=== PATIENT | female | born 1935 | race Caucasian/White ===

== ENCOUNTER → 2019-06-14 16:33 | Outpatient (CLI) | payer MEDICARE, OTHER, SELFPAY ==
[2019-06-14 17:30] LABS: Add Manual Diff / Slide Review NO; Basophils Absolute Auto 100 /uL (0-100); Basophils Percent Auto 0.8 % (0-2); Eosinophils Absolute Auto 300 /uL (0-450); Eosinophils Percent Auto 3.5 % (2-4); Hematocrit 39.6 % (36-46); Hemoglobin 13.2 g/dL (12.0-16.0); Lymphocytes Absolute Auto 2100 /uL (1100-4500); Lymphocytes Percent Auto 21.3 % (25-40); Mean Corpuscular HGB Conc 33.3 % (30-36); Mean Corpuscular Hemoglobin 28.1 PG (26-34); Mean Corpuscular Volume 84.2 fL (80-100); Monocytes Absolute Auto 900 /uL (0-900); Monocytes Percent Auto 8.6 % (3-14); Neutrophils Absolute Auto 6500 /uL (1500-7000); Neutrophils Percent Auto 65.8 % (50-75); Platelet Count 329 X10^3/uL (150-400); Red Cell Distribution Width 15.6 % (11.6-14.8); White Blood Cell Count 9.9 X10^3/uL (4.5-11.0)
[2019-06-14 17:56] LABS: Carbon Dioxide 27 mmol/L (22-32); Chloride 101 mmol/L (98-107); HEMOLYSIS < 15 (0-50); Potassium 4.4 mmol/L (3.4-5.1); Sodium 139 mmol/L (137-145)
== END ==
PROVIDERS: PCP Internal Medicine; Visit Provider Orthopaedic Surgery
DX: Z01.818 Encounter for other preprocedural examination (principal)
CPT/HCPCS: 36415; 80051; 85025

== ENCOUNTER 2019-06-28 12:20 | Inpatient (IN) | payer MEDICARE, OTHER, SELFPAY ==
[2019-03-08 12:44] VITALS: BMI 30.7
[2019-06-27] VITALS (15 sets, daily range): BP systolic 132–179; BP diastolic 63–92; PULSE 77–93; RESP 9–19; TEMP 35.7–36.4; O2SAT 92–99; BMI 30.7
--- NOTE | 2019-06-27 07:38 | DI.RAD.S_ITS ---
PROCEDURE: XR KNEE RT 1TO2V INDICATIONS: post op films TECHNIQUE: 2 view(s) of the knee acquired. COMPARISON: [facility], , KNEE 1-2 VIEWS LEFT, 04/03/2007, 11:26. FINDINGS: Bones: Patient is status post knee joint arthroplasty. Hardware components are in expected positions. Visualized bony structures are intact. Soft tissues: Overlying postoperative changes are noted. IMPRESSION: Expected postoperative appearance Dictated by: Guzman Tran M.D. on 06/27/2019 at 15:48 Approved by: Guzman Tran M.D. on 06/27/2019 at 15:49
--- NOTE | 2019-06-27 07:40 | PM.PREOP ---
Pre-operative Note Interval Note History & Physical reviewed/Exam performed by Physician: Yes Changes to H&P: No
--- NOTE | 2019-06-27 07:40 | PM.OP.1 ---
Operative Date/Time/Diagnoses Date of procedure: 06/27/19 Pre-op diagnosis: Right knee osteoarthritis Post-op diagnosis: same Procedure & Clinicians Procedure: Right total knee arthroplasty Same procedure as scheduled: Yes Indications: The patient presents today for total knee arthroplasty after failure of conservative treatment. The nature of the procedure including the risks and benefits, alternatives, postoperative course and expected outcome were discussed and all questions answered. Consent was obtained. Operative site confirmed and marked. Surgeon: Ander Billings Hole Digger Truck Driver: Pipe Jarquin Anesthesia Type: General, Peripheral nerve block and Local Operative Notes Findings: Severe osteoarthritis with varus alignment. The bone was extremely soft. Closure Type: primary Specimen(s): none sent Prosthetic devices, grafts, tissues, transplants, or devices: Miryam Persona TKA 7 CR femoral component, E stemmed tibial component, 11 mc polyethylene tray and 32 mm all poly patella. Applied: implant(s) Estimated Blood Loss (mL): 20 Blood products transfused: none Tourniquet time (min): 65 Procedure in detail: The patient was taken to the operative suite and placed under general anesthesia with an adductor nerve block. The patient was given prophylactic antibiotics prior to surgery. The patient was also given tranexamic acid, 1 g, just prior to surgery for postoperative hemostasis. The lateral knee was prepped and the joint injected with 20 mL of 1% Lidocaine with epinephrine. The knee was then prepped and draped in usual sterile fashion. The leg was exsanguinated with an Esmarch dressing and the tourniquet raised to 250 torr. A 15 cm anterior incision was made. Next a medial trivector arthrotomy was made. The extensor mechanism was marked to ensure accurate repair. Initial exposing dissection was carried out medially and laterally. The knee was then extended and the patellar thickness was measured and a cut made removing approximately 9 mm of bone. The patella was then sized and drilled. Some excess lateral bone was excised and the patellofemoral ligament released. The knee was then flexed and the intramedullary femoral guide tim placed. The distal femoral cut was made in 5 ? of valgus at the + 0 position. The femoral size was measured and the appropriate cutting block was then placed and the anterior, posterior and chamfer cuts made. The extra medullary tibial alignment tim was then placed along the anatomic axis of the tibia approximating the normal slope. The guide was set to remove approximately 8 mm from the less affected medial side. The proximal tibial cut was then made with an oscillating saw. All meniscus and bony debris was then removed. Flexion extension gaps were checked. The knee was tight laterally as expected from her preoperative alignment. This was corrected with percutaneous release of the lateral capsule with a 15 blade. The soft tissues were then injected with a combination of 20 mL of half percent Marcaine with epinephrine and 20 mL of Exparel. The trial components were then placed. The knee went into full extension and flexion beyond 120?. There was excellent medial- lateral balance throughout motion. Patellar tracking was initially somewhat subluxed and tight laterally. A lateral retinacular release was performed which corrected the patellar alignment. The trial components were removed and the knee was cleansed with Pulsavac irrigation and dried. The final components were cemented in with high viscosity vacuum mixed bone cement with antibiotics. The knee was held in extension and the patellar clamp until the cement had adequately cured. The knee was irrigated and inspected for any further debris. The knee was then irrigated with dilute Betadine solution. The extensor mechanism was closed with 5 interrupted #1 Vicryl sutures in 90 degrees of flexion. The joint was then injected with a combination of 1 g of tranexamic acid and 20 mL of quarter percent Marcaine with epinephrine. The subcutaneous tissue was closed with 2-0 Vicryl. The skin was closed with janna and surgical adhesive. An Aquacell dressing and Christo wrap were then applied. The patient tolerated the procedure well and was returned to recovery room in good condition. Complications: none Condition: stable Disposition: PACU Plan for aftercare: Standard postoperative protocol for total knee arthroplasty. Admitted for 1-2 days. Follow up in 2 weeks.
[2019-06-27] MEDS: LACTATED RINGERS 1,000 ML 42 ML IV (08:14)
[2019-06-27] MEDS: ACETAMINOPHEN 325 MG TABLET 975 MG PO ×3 (08:14→21:16)
[2019-06-27] MEDS: PREGABALIN 75 MG CAPSULE PO (08:14)
--- NOTE | 2019-06-27 09:18 | SUR.OPER ---
Supine on padded OR bed. Pillow under head, arms secured on padded armboards <90 degree abduction. Safety belt across torso. Non-operative leg secured with tape over blanket over lower leg. Operative leg secured in DeMayo/Aneesh positioner. Foam padded brace at thigh of operative leg.
--- NOTE | 2019-06-27 09:34 | SUR.PREOP ---
Block start time [29] . Monitoring initiated and maintained throughout procedure. Oxygen and medications given per anesthesiologist instructions. Patient remained stable throughout procedure, no adverse reactions noted. Block end time [34].
[2019-06-27] MEDS: MIDAZOLAM 2 MG/2 ML VIAL (09:35)
[2019-06-27] MEDS: fentaNYL 100 MCG/2 ML INJ 50 MCG IV (09:35)
[2019-06-27] MEDS: CLINDAMYCIN 900 MG/50 ML PIGGYBACK 50 MG IV ×2 (09:40→18:03)
[2019-06-27] MEDS: BUPIVACAINE 0.25% W/ EPI (PF) 40 ML, BUPIVACAINE LIPOSOME 266 MG, SODIUM CHLORIDE 0.9% ... INJ (10:16)
[2019-06-27] MEDS: LIDOCAINE 1% W/EPI INJ 20 ML INJ (10:16)
[2019-06-27] MEDS: BUPIVACAINE 0.25% W/ EPI (PF) 20 ML, TRANEXAMIC ACID 1,000 MG, SODIUM CHLORIDE 0.9% 10 ML INJ (10:18)
[2019-06-27] MEDS: TRANEXAMIC ACID 1,000 MG VIAL 1000 MG INJ (10:19)
[2019-06-27] MEDS: ONDANSETRON 4 MG/2 ML INJ IV ×4 (12:35→21:15)
[2019-06-27] MEDS: LACTATED RINGERS 1,000 ML 125 ML IV ×2 (12:41→17:06)
[2019-06-27] MEDS: LACTATED RINGERS 500 ML 1000 ML IV (15:27)
[2019-06-27] MEDS: AMLODIPINE 5 MG TABLET PO (16:46)
[2019-06-27] MEDS: LEVOTHYROXINE 112 MCG TABLET PO (16:46)
[2019-06-27] MEDS: MELOXICAM 7.5 MG TABLET 15 MG PO (16:46)
[2019-06-27] MEDS: ASPIRIN EC 81 MG TABLET PO ×2 (16:46→21:16)
[2019-06-27] MEDS: OXYCODONE IR 5 MG TABLET PO (18:49)
[2019-06-28] VITALS (8 sets, daily range): BP systolic 124–153; BP diastolic 53–76; PULSE 74–90; RESP 15–18; TEMP 36.1–36.7; O2SAT 85–97
[2019-06-28] MEDS: LACTATED RINGERS 1,000 ML 125 ML IV (02:02)
[2019-06-28] MEDS: CLINDAMYCIN 900 MG/50 ML PIGGYBACK 50 MG IV (02:02)
[2019-06-28 06:51] LABS: Hematocrit 37.8 % (36-46); Hemoglobin 12.4 g/dL (12.0-16.0)
[2019-06-28] MEDS: ACETAMINOPHEN 325 MG TABLET 975 MG PO ×3 (09:18→21:01)
[2019-06-28] MEDS: ASPIRIN EC 81 MG TABLET PO ×2 (09:19→21:02)
[2019-06-28] MEDS: OXYCODONE IR 5 MG TABLET PO ×3 (09:19→21:02)
[2019-06-28] MEDS: LEVOTHYROXINE 112 MCG TABLET PO (09:19)
[2019-06-28] MEDS: AMLODIPINE 5 MG TABLET PO (09:19)
[2019-06-28] MEDS: MELOXICAM 7.5 MG TABLET 15 MG PO (09:22)
--- NOTE | 2019-06-28 10:18 | P.PN_ITS ---
Subjective Date Patient Seen: 06/28/19 Time Patient Seen: 10:16 Interval history: Hospital day 2, postop day 1 following right total knee arthroplasty by Dr. Billings. She remained stable postoperatively. Did have some nausea yesterday but doing better today. She did have desaturation into the 80s during the night but does well during the day. She has not had any physical therapy yet. She is scheduled to go to [facility] for outpatient therapy. She plans to go home with her helping her. Exam Vital Signs (past 8 hours): - 06/28/19 03:30 06/28/19 04:38 06/28/19 08:00 Temperature 98.0 F Pulse Rate 78 90 Respiratory Rate 18 18 15 Blood Pressure 147/53 H 153/76 H Pulse Oximetry 85 L 95 92 06/28/19 08:10 Temperature Pulse Rate Respiratory Rate Blood Pressure Pulse Oximetry 93 Fraction of Inspired Oxygen 21 Oxygen Delivery Method Room Air Oxygen Flow Rate 0 Narrative Exam Narrative: Alert, oriented in no acute distress resting in bed. Legs. Christo wrap and samantha dressing to right knee without signs of infection or inflammation. No calf pain or swelling. Pulses symmetrical. Objective Labs Result Diagrams: 06/28/19 06:33 Labs: Laboratory Results - last 24 hr 06/28/19 06:33 Hgb 12.4 Hct 37.8 Assessment & Plan Post-op Postoperative Procedures Operation Date: 06/27/19 09:30 Actual Procedures Side Surgeon p Total Knee Arthroplasty Right Ander Billings MD Plan: Patient will start working with PT today. Observe for improvement in pain and function. Anticipate discharge home tomorrow she is stable. Prescribed docusate and senna today to help with bowel movement. Quality VTE Deep Vein Thrombosis/Pulmonary Embolism Present on Admission: No
[2019-06-28] MEDS: SENNOSIDES 8.6 MG TABLET PO ×2 (10:32→21:02)
[2019-06-28] MEDS: DOCUSATE 100 MG CAPSULE PO ×2 (10:33→21:02)
--- NOTE | 2019-06-28 10:38 | PT.IIE ---
Current Diagnoses Unilateral primary osteoarthritis, right knee (06/27/19) Surgery Performed Operation Date: 06/27/19 09:30 Actual Procedures p Total Knee Arthroplasty(Right) - Ander Billings MD Surgical History (Last Updated 03/08/19 @ 13:21 by Sherrie Alvarez, RN) History of arthroplasty of left knee (Acute ~2006) Hx of reduction mammoplasty (Acute) Hx of tonsillectomy (Acute) Status post bilateral cataract extraction (Acute ~2014) Medical History (Last Updated 03/12/19 @ 14:50 by Sherrie Alvarez RN) Anemia (Acute) Aortic regurgitation (Acute) Arthritis (Acute) Diabetes (Acute) Easy bruisability (Acute) Edema (Acute) HLD (hyperlipidemia) (Acute) HTN (hypertension) (Acute) Hypothyroidism (Acute) Injury of right thigh (Acute ~2017) Iron deficiency anemia (Acute) Lipoma (Acute ~06/2014) Osteoarthritis (Acute) RBBB (right bundle branch block) (Acute) Spinal stenosis (Acute) Physical Therapy Inpatient Evaluation/Re-Eval M1 PT/OT-IP Prior Functional Status Start: 06/27/19 17:03 Freq: NEEDED Status: Active Protocol: Document 06/28/19 09:40 (Rec: 06/28/19 10:37 [id number]) Medical Review Prior Functional Status Medical History Reviewed Yes Diet/Fluid Consistency Regular Communication No deficits noted. Able to make needs known. Pt does show deficits with short term memory. Mobility and Gait Pt uses FWW/ SPC at home and FWW independently for community mobility. She does not drive. Activities of Daily Living and IADL's Independent with ADLs and mod I with 's assistance as needed for IADLs (grocery shopping, doctor appointments) Social History Household Members spouse Living Arrangements House Number of Floors (Floors) Two Floors Number of Stairs To Enter/Railing? 5 MARTI with B rails 14 steps to basement with B rails Home Environment Standard Height Toilet Walk in Shower Home Equipment Front Wheel Walker Straight Cane Manual Wheelchair Raised Toilet Seat Without Armrests Employment Status Retired Additional Social History Comment Pt lives with her in [facility]. Has 2 sons that live clos by and a dtr in [place]. Pt plans to be d/c home with and she will have her son to come to assist as needed. She will also participate outpatient PT at [facility] starting from next tuesday. M2 PT-IP Current Condition Start: 06/27/19 17:03 Freq: NEEDED Status: Active Protocol: Document 06/28/19 09:40 HH (Rec: 06/28/19 10:37 [id number]) Physical Therapy Current Condition Current Condition Evaluation Date 06/28/19 Treatment Diagnosis R TKA, difficulty in walking Onset Date 06/27/19 Weight Bearing Status Weight Bearing Status Weight Bear as Tolerated M3 PT-IP Subjective Start: 06/27/19 17:03 Freq: NEEDED Status: Active Protocol: Document 06/28/19 09:40 HH (Rec: 06/28/19 10:37 [id number]) Subjective Physical Therapy Visit Type Type Initial Evaluation Visit Start Time 09:40 Visit Stop Time 10:05 Total Visit Minutes 25 Notes Pt's at bedside. Just used bedside commode with STATION GATEMAN assistance earlier. pt also brought in her own FWW for adjustment. Number of TEMPORARY HELP AGENCY REFERRAL CLERK Visits 0 Physical Therapy Visit Comments Patient Comments I want to get up Patient Goals to return home with her Therapy Pain Assessment Pain When Pain Assessed During Mobility Pain Present Pain Present Pain Reported Location r knee Intensity 4 Scale Used Numeric (1 - 10) Description Acute Pain Management Techniques Timing of Activity with Medications M4 PT-IP Mobility and Gait Start: 06/27/19 17:03 Freq: NEEDED Status: Active Protocol: Document 06/28/19 09:40 HH (Rec: 06/28/19 10:37 [id number]) PT-Bed Mobility Assessment Rolling Type of Rolling Roll to Left Level of Assist Minimal Assistance 1 Person Assistance Supine to Sit Supine to Sit Minimal Assistance 1 Person Assistance Head of Bed Elevated Bedrails Scooting Scooting to Edge of Bed Contact Guard Assistance PT-Transfer Assessment Sit to and From Stand Sit to and from Stand Moderate Assistance 1 Person Assistance Use of Upper Extremities Equipment Transfer Assistive Device Bed Rail Gait Belt Front Wheeled Walker Orthotic/Prosthetic Devices or Brace: No Transfers Transfer Destination Bed Chair Transfer Technique Stand Step Pivot Transfer Ability Level of Assist Minimal Assistance 1 Person Assistance Use of Upper Extremities Comments Mobility Comments Pt in bed upon assesment and reports anxious regarding mobility. BP pre and post = 140s/60s HR 100s. Pt got up from supine to sit EOB on L side with min A to unweigh her R LE. She then stood up with mod A. Pt c/o dizziness from supine to sit and sit to stand and required 1-2 mins for recovery. She was able to amb after in the room with chair followed for 15 ft with FWW. Pt used step to gait and required constant cues for walker management and sequencing. She then returned to bedside chair safely with call light within reach. Gait Assessment Gait Gait Assistance Required: Contact Guard Assist Distance (Feet) 15 Able to Maintain Weight Bearing Status Yes During Gait Assistive Devices Assistive Device Gait Belt Front Wheeled Walker Orthotic/Prosthetic Devices or Brace: No Gait Deviations General Gait Pattern Antalgic Decreased Stride Length Decreased Feet Clearance Step-to Gait Factors Limiting Gait Function Factors Limiting Gait Function Decreased Activity Tolerance Decreased Sensation Decreased Strength Limited Range of Motion Pain Poor Balance Poor Safety Awareness Respiratory Distress Comments Gait Comments see mobility comments PT-Balance Assessment Sitting Balance and Reactions Static Sitting Balance Ability Normal Dynamic Sitting Balance Ability Normal Standing Balance and Reactions Static Standing Balance Ability Good Dynamic Standing Balance Ability Good Device Used FWW M5 PT-IP Objective Assessments Start: 06/27/19 17:03 Freq: NEEDED Status: Active Protocol: Document 06/28/19 09:40 (Rec: 06/28/19 10:37 [id number]) Orientation Orientation/Cognition Level of Alertness Alert Orientation Name Age Birthday Month Date Year Day of Week Place Situation Language Function Ability No Deficits Noted Safety Awareness Understands Safety Issues Memory Description Short Term Impaired Comments pt requires cues constantly for walker management and sequencing. She often presents forgetful of events that just happened couple minutes ago. Gross Range of Motion Upper Extremity ROM Assessment Within Functional Limits Lower Extremity ROM Assessment Right Impaired Impairments 15-90 degrees AROM (knee) Strength Upper Extremity Strength Assessment Within Functional Limits Lower Extremity Strength Assessment Right Impaired Hip 4/5 Knee 3-/5 Coordination Assessment Gross Coordination Gross Coordination WNL Sensation Assessment Sensation Gross Sensation WNL M6 PT-IP Treatment Start: 06/27/19 17:03 Freq: NEEDED Status: Active Protocol: Document 06/28/19 09:40 (Rec: 06/28/19 10:37 [id number]) Physical Therapy Treatment Exercises Exercises Ankle Pumps Quad Sets Heel Slides Education Education Provided Precautions Weight Bearing Status Post-Op Packet Safety M7 PT-IP Assessment and Plan Start: 06/27/19 17:03 Freq: NEEDED Status: Active Protocol: Document 06/28/19 09:40 (Rec: 06/28/19 10:37 [id number]) PT Summary Assessment and Plan Potential Rehabilitation Potential Excellent Status of Condition at Evaluation Stable Summary Impairments Pain ROM Strength Balance Sensation Bed Mobility Transfers Gait Activity Tolerance Assessment Summary Pt is a low complexity who received R TKA yesterday. Pt's presents at bedside during assessment today. Pt demonstrates bed mobility, transfers and amb with CGA and min A with FWW. She appears to be somewhat forgetful but very compliant. She also appears somewhat anxious and requires often reassurance of her current condition and prognosis. Pt did c/o dizziness with positional changes but VS appears stable at this point. She is not safe to go home at this point due to her limited mobility and pain level, but she does have DME and family support at home . Will cont to assess her progress and expect pt to be d /c home once she reaches her rehab goals and medically stable. Goals Bed Mobility Goal Standby Assistance Transfer Goal Standby Assistance Gait Goal Standby Assistance Gait Distance 100 Other Goals climb 5 steps with B rails CGA Days to Meet Goals 5 Frequency of Treatment Frequency Of Treatment Twice a Day Treatment Plan Physical Therapy Treatment Plan Bed Mobility Training Transfer Training Gait Training Therapeutic Exercise Balance Retraining Post Op Education Discharge Planning Hot or Cold Pack Neuromuscular Re-ed Other Recommendations and Next Treatment bed mob, transfers training, Focus gait training as audelia Recommendations To Nursing Amount of Assist Needed 1 Person Assist Discharge Recommendations PT Discharge Recommendations Home with Assistance Outpatient PT Other Discharge Recommendations She is not safe to go home at this point due to her limited mobility and pain level, but she does have DME and family support at home. Will cont to assess her progress but expect pt to be d/c home once she reaches her rehab goals and medically stable. Equipment Needed for Home Before shower chair Discharge
--- NOTE | 2019-06-28 11:36 | CM.IDA ---
Initial DCP Assessment Note: Pt is an 84 yo female, resident of [place], now POD#1 from Rt knee surgery w/ Dr Billings PCP: Chrissy Starr Payer: Medicare/[employer]NA[employer] Life Met w/pt and spouse Carlos Enrique, explained role. Therapy has cleared pt for return home w/family to assist and pt has planned for home, DC order from Ortho [facility] expected tomorrow. Pt/spouse confident about their plan to return home upon DC. From PT Note: Pt lives with her in [facility]. Has 2 sons that live closy by and a dtr in [place]. Pt plans to be d/c home with and she will have her son to come to assist as needed. She will also participate outpatient PT at [facility] starting from next tuesday. No needs expected from DC planning team although will remain available in case this changes . EVELYN Vasques Discharge Planning/Care Management CM Discharge Assessment Start: 06/28/19 11:33 Freq: Status: Active Protocol: Document 06/28/19 11:33 LARRY (Rec: 06/28/19 11:36 LARRY [id number]) Discharge Planning Assessment Assigned Bellperson EVELYN Anand DPOA/Assigned Designee Name Sylvester Goode Contact Information [phone] Advance Directives? Yes Advance Directives on File No History Provided By Patient Significant Other Prior Living Arrangements House Household Members spouse Type of transporation used prior to Relies on Others admit Independent with ADL's Yes Is patient alert and oriented? Yes Patient/Family Preference OP PT Therapy Barriers to Discharge No Discharge Plan Home Transportation Arrangement Spouse Referrals Initiated None needed Whiteboard Updated in Patient Room with Yes name and ext. # of Bellperson Review Status In Process
[2019-06-28] MEDS: ONDANSETRON 4 MG/2 ML INJ IV ×2 (12:48→17:00)
--- NOTE | 2019-06-28 13:56 | PT.OTN ---
Current Diagnoses Unilateral primary osteoarthritis, right knee (06/27/19)
[2019-06-28] MEDS: ONDANSETRON 4 MG ODT PO (21:01)
[2019-06-29 00:31] VITALS: BP 156/69; PULSE 82; RESP 18; TEMP 36.7; O2SAT 92
[2019-06-29] MEDS: OXYCODONE IR 5 MG TABLET PO ×5 (00:36→12:57)
--- NOTE | 2019-06-29 03:05 | PC.NURSE ---
Addendum entered by Kyara Dominguez R.N. 06/29/19 03:39: Pt denies nausea on this shift. Original Note: Pt is AxOx3 but forgetful and repeats herself. Pt's lung sounds are clear bilaterally and VSS. Pt has pain at post op site, prefers to stay on top of pain Q3, oycodone 5mg. Dressing is JASE w/ wound vac, and vald wrap, clean/dry and intact. Pt has SCD's and has been encouraged to use IS. Pt has lower leg edema 2+ non pitting. is at side for the night.
[2019-06-29 05:00] VITALS: BP 154/85; PULSE 87; RESP 18; TEMP 36.6; O2SAT 93
[2019-06-29 08:28] VITALS: BP 131/72; PULSE 85; RESP 17; TEMP 36.5; O2SAT 92
[2019-06-29] MEDS: ONDANSETRON 4 MG ODT PO ×2 (08:49→14:44)
[2019-06-29] MEDS: DOCUSATE 100 MG CAPSULE PO (08:50)
[2019-06-29] MEDS: ASPIRIN EC 81 MG TABLET PO (08:50)
[2019-06-29] MEDS: SENNOSIDES 8.6 MG TABLET PO (08:50)
[2019-06-29] MEDS: ACETAMINOPHEN 325 MG TABLET 975 MG PO ×2 (08:50→14:41)
[2019-06-29] MEDS: LEVOTHYROXINE 112 MCG TABLET PO (08:50)
[2019-06-29] MEDS: AMLODIPINE 5 MG TABLET PO (08:50)
[2019-06-29] MEDS: MELOXICAM 7.5 MG TABLET 15 MG PO (08:53)
--- NOTE | 2019-06-29 09:58 | PM.PNPO.1 ---
Subjective Date Patient Seen: 06/29/19 Time Patient Seen: 09:58 Interval history: Patient is POD#2 s/p right total knee arthropalsty. Pain is well controlled. She continued to have nausea yesterday which prevented her working with PT very much. Nausea has mostly resolved today and she tolerated breakfast. Pain has been well controlled. No chest pain or shortness of breath. Exam Vital Signs (past 8 hours): - 06/29/19 05:00 06/29/19 08:28 Temperature 97.9 F 97.7 F Pulse Rate 87 85 Respiratory Rate 18 17 Blood Pressure 154/85 H 131/72 Pulse Oximetry 93 92 Fraction of Inspired Oxygen 21 Oxygen Delivery Method Room Air Oxygen Flow Rate 0 Narrative Exam Narrative: Pleasant 84 year old female resting comfortably in bed, alert and oriented in no acute distress. JASE dressing in place over right knee is CDI. Intact flexion/extension of foot and ankle. Palpable pedal pulse. Soft compressible calves. Objective Labs Result Diagrams: 06/28/19 06:33 Assessment & Plan Post-op Postoperative Procedures Operation Date: 06/27/19 09:30 Actual Procedures Side Surgeon p Total Knee Arthroplasty Right Ander Billings MD Patient is progressing post operatively. Somewhat slow to mobilize due to nausea. She requires additional work with PT prior to discharge. Anticipated discharge to home tomorrow. Quality VTE Deep Vein Thrombosis/Pulmonary Embolism Present on Admission: No
--- NOTE | 2019-06-29 10:37 | PT.IPTN ---
Current Diagnoses Unilateral primary osteoarthritis, right knee (06/27/19) Surgery Performed Operation Date: 06/27/19 09:30 Actual Procedures p Total Knee Arthroplasty(Right) - Ander Billings MD Physical Therapy Treatment Note M2 PT-IP Current Condition Start: 06/27/19 17:03 Freq: NEEDED Status: Active Protocol: Document 06/28/19 09:40 HH (Rec: 06/28/19 10:37 HH [id number]) Physical Therapy Current Condition Current Condition Evaluation Date 06/28/19 Treatment Diagnosis R TKA, difficulty in walking Onset Date 06/27/19 Weight Bearing Status Weight Bearing Status Weight Bear as Tolerated M3 PT-IP Subjective Start: 06/27/19 17:03 Freq: NEEDED Status: Active Protocol: Document 06/29/19 10:37 LJ (Rec: 06/29/19 10:37 LJ [id number]) Subjective Physical Therapy Visit Type Type Treatment Note Notes pt refusing am tx due to nausea M4 PT-IP Mobility and Gait Start: 06/27/19 17:03 Freq: NEEDED Status: Active Protocol: Document 06/28/19 13:47 LRN (Rec: 06/28/19 13:55 LRN [id number]) PT-Transfer Assessment Comments Mobility Comments Pt sitting in a chair at start . Gait Assessment Comments Gait Comments Pt refused. Prior session pt was able to ambulate with 1 assist and CGA/gait belt 15 feet. M5 PT-IP Objective Assessments Start: 06/27/19 17:03 Freq: NEEDED Status: Active Protocol: Document 06/28/19 09:40 HH (Rec: 06/28/19 10:37 HH [id number]) Orientation Orientation/Cognition Level of Alertness Alert Orientation Name Age Birthday Month Date Year Day of Week Place Situation Language Function Ability No Deficits Noted Safety Awareness Understands Safety Issues Memory Description Short Term Impaired Comments pt requires cues constantly for walker management and sequencing. She often presents forgetful of events that just happened couple minutes ago. Gross Range of Motion Upper Extremity ROM Assessment Within Functional Limits Lower Extremity ROM Assessment Right Impaired Impairments 15-90 degrees AROM (knee) Strength Upper Extremity Strength Assessment Within Functional Limits Lower Extremity Strength Assessment Right Impaired Hip 4/5 Knee 3-/5 Coordination Assessment Gross Coordination Gross Coordination WNL Sensation Assessment Sensation Gross Sensation WNL M6 PT-IP Treatment Start: 06/27/19 17:03 Freq: NEEDED Status: Active Protocol: Document 06/28/19 13:47 LRN (Rec: 06/28/19 13:55 LRN [id number]) Physical Therapy Treatment Other Treatments Other Treatment Performed Pt instructed to move ankle and knee while in sitting and to ask if pt feels better later today to ask for assist to get up and mobilize. M7 PT-IP Assessment and Plan Start: 06/27/19 17:03 Freq: NEEDED Status: Active Protocol: Document 06/28/19 13:47 LRN (Rec: 06/28/19 13:55 LRN [id number]) PT Summary Assessment and Plan Summary Impairments Activity Tolerance Assessment Summary Pt not able to tolerate afternoon PT due to nausea. Pt not wanting to mobilize at this time. Nursing has agreed to ambulate with pt if asked. Treatment Plan Physical Therapy Treatment Plan Bed Mobility Training Transfer Training Gait Training Therapeutic Exercise Balance Retraining Post Op Education Discharge Planning Hot or Cold Pack Neuromuscular Re-ed Other Recommendations and Next Treatment bed mob, transfers training, Focus gait training as audelia Recommendations To Nursing Amount of Assist Needed 1 Person Assist
[2019-06-29 12:57] VITALS: BP 146/63; PULSE 82; RESP 15; TEMP 36.3; O2SAT 92
[2019-06-29 16:00] VITALS: BP 136/65; PULSE 82; RESP 16; TEMP 36.1; O2SAT 93
--- NOTE | 2019-06-29 16:06 | PT.IPTN ---
Current Diagnoses Unilateral primary osteoarthritis, right knee (06/27/19) Surgery Performed Operation Date: 06/27/19 09:30 Actual Procedures p Total Knee Arthroplasty(Right) - Ander Billings MD Physical Therapy Treatment Note M2 PT-IP Current Condition Start: 06/27/19 17:03 Freq: NEEDED Status: Active Protocol: Document 06/28/19 09:40 HH (Rec: 06/28/19 10:37 HH [id number]) Physical Therapy Current Condition Current Condition Evaluation Date 06/28/19 Treatment Diagnosis R TKA, difficulty in walking Onset Date 06/27/19 Weight Bearing Status Weight Bearing Status Weight Bear as Tolerated M3 PT-IP Subjective Start: 06/27/19 17:03 Freq: NEEDED Status: Active Protocol: Document 06/29/19 16:05 LJ (Rec: 06/29/19 16:06 LJ [id number]) Subjective Physical Therapy Visit Type Type Patient Refusal Notes still vomitting M4 PT-IP Mobility and Gait Start: 06/27/19 17:03 Freq: NEEDED Status: Active Protocol: Document 06/28/19 13:47 LRN (Rec: 06/28/19 13:55 LRN [id number]) PT-Transfer Assessment Comments Mobility Comments Pt sitting in a chair at start . Gait Assessment Comments Gait Comments Pt refused. Prior session pt was able to ambulate with 1 assist and CGA/gait belt 15 feet. M5 PT-IP Objective Assessments Start: 06/27/19 17:03 Freq: NEEDED Status: Active Protocol: Document 06/28/19 09:40 HH (Rec: 06/28/19 10:37 HH [id number]) Orientation Orientation/Cognition Level of Alertness Alert Orientation Name Age Birthday Month Date Year Day of Week Place Situation Language Function Ability No Deficits Noted Safety Awareness Understands Safety Issues Memory Description Short Term Impaired Comments pt requires cues constantly for walker management and sequencing. She often presents forgetful of events that just happened couple minutes ago. Gross Range of Motion Upper Extremity ROM Assessment Within Functional Limits Lower Extremity ROM Assessment Right Impaired Impairments 15-90 degrees AROM (knee) Strength Upper Extremity Strength Assessment Within Functional Limits Lower Extremity Strength Assessment Right Impaired Hip 4/5 Knee 3-/5 Coordination Assessment Gross Coordination Gross Coordination WNL Sensation Assessment Sensation Gross Sensation WNL M6 PT-IP Treatment Start: 06/27/19 17:03 Freq: NEEDED Status: Active Protocol: Document 06/28/19 13:47 LRN (Rec: 06/28/19 13:55 LRN [id number]) Physical Therapy Treatment Other Treatments Other Treatment Performed Pt instructed to move ankle and knee while in sitting and to ask if pt feels better later today to ask for assist to get up and mobilize. M7 PT-IP Assessment and Plan Start: 06/27/19 17:03 Freq: NEEDED Status: Active Protocol: Document 06/28/19 13:47 LRN (Rec: 06/28/19 13:55 LRN [id number]) PT Summary Assessment and Plan Summary Impairments Activity Tolerance Assessment Summary Pt not able to tolerate afternoon PT due to nausea. Pt not wanting to mobilize at this time. Nursing has agreed to ambulate with pt if asked. Treatment Plan Physical Therapy Treatment Plan Bed Mobility Training Transfer Training Gait Training Therapeutic Exercise Balance Retraining Post Op Education Discharge Planning Hot or Cold Pack Neuromuscular Re-ed Other Recommendations and Next Treatment bed mob, transfers training, Focus gait training as audelia Recommendations To Nursing Amount of Assist Needed 1 Person Assist
[2019-06-29] MEDS: ONDANSETRON 4 MG/2 ML INJ IV (17:39)
[2019-06-29 20:00] VITALS: BP 152/66; PULSE 86; RESP 16; TEMP 36.1; O2SAT 93
[2019-06-30] VITALS (7 sets, daily range): BP systolic 131–170; BP diastolic 57–84; PULSE 87–100; RESP 14–18; TEMP 36.4–37.4; O2SAT 90–95
[2019-06-30] MEDS: ACETAMINOPHEN 325 MG TABLET 975 MG PO ×3 (07:50→21:08)
[2019-06-30] MEDS: ASPIRIN EC 81 MG TABLET PO ×2 (07:50→21:08)
[2019-06-30] MEDS: AMLODIPINE 5 MG TABLET PO (07:51)
[2019-06-30] MEDS: SENNOSIDES 8.6 MG TABLET PO ×2 (07:51→21:08)
[2019-06-30] MEDS: DOCUSATE 100 MG CAPSULE PO ×2 (07:52→21:08)
[2019-06-30] MEDS: MELOXICAM 7.5 MG TABLET 15 MG PO (07:52)
[2019-06-30] MEDS: LEVOTHYROXINE 112 MCG TABLET PO (07:52)
[2019-06-30] MEDS: LACTATED RINGERS 1,000 ML 125 ML IV ×2 (08:14→16:14)
--- NOTE | 2019-06-30 08:21 | P.PN_ITS ---
Subjective Date Patient Seen: 06/30/19 Time Patient Seen: 08:16 Interval history: POD #3 status post right total knee arthroplasty with Dr. Billings. Patient has had significant issues with nausea and vomiting throughout her stay. She has been very slow to mobilize with physical therapy. She was not able to work with PT yesterday due to vomiting. She reports that she may have had blood pressure issues in the past. Exam Vital Signs (past 8 hours): - 06/30/19 00:25 06/30/19 04:20 Temperature 98.2 F 98.2 F Pulse Rate 94 H 93 H Respiratory Rate 18 18 Blood Pressure 170/76 H 154/82 H Pulse Oximetry 93 90 L Fraction of Inspired Oxygen 21 Oxygen Delivery Method Room Air Oxygen Flow Rate 0 Narrative Exam Narrative: Patient lying in bed in no acute distress. She is alert and oriented x3. Dressing on right knee is CDI. Calves are soft, compressible, nontender bilaterally. She does 1+ edema of right leg. Dorsalis pedis pulses are 1+. Leg is well perfused. Objective Labs Result Diagrams: 06/28/19 06:33 Assessment & Plan Post-op (1) S/P total knee arthroplasty: Postoperative Procedures Operation Date: 06/27/19 09:30 Actual Procedures Side Surgeon p Total Knee Arthroplasty Right Ander Billings MD Patient will mobilize with physical therapy today. Patient will have a prescription for Zofran for nausea for home. We will bolus fluids this morning given her hypertension, and low urine output. This is most likely due to her not eating and drinking from the nausea and vomiting and effects of anesthesia. Once patient is mobilizing with physical therapy and safe to go home she will li belinda discharge tonight or tomorrow morning. She may need home health services as she has been slow to mobilize. Quality VTE Deep Vein Thrombosis/Pulmonary Embolism Present on Admission: No
--- NOTE | 2019-06-30 08:50 | PC.NURSE ---
Addendum entered by Hi Baker R.N. 06/30/19 10:03: iv continues to infuse without difficulty, bruised but not swollen. no infiltration. Original Note: PATIENT DENIES NAUSEA PRESENTLY, STATES WHEN SHE HAS BEEN UP TO BR HAS FELT A LITTLE WOOZY [NAUSEATED] BUT HASN'T BEEN UP TO BR ON DAY SHIFT YET. SHE IS SLOWLY EATING HER BREAKFAST. BP AND HR NOTED TO BE ELEVATED AND PA ORDERED TO RESUME FLUIDS. HER HAND IV WAS LEAKING. DC'D INTACT. RESTARTED 22G IV IN RIGHT FA. IMMEDIATELY BRUISED, BUT NOT SWOLLEN AND FLUSHES WELL. WILL MONITOR CLOSELY. LR INFUSING AT 125CC/HR PER DISCUSSION WITH PA, PA THINKS PATIENT IS DEHYDRATED. PATIENT REPORTS 3 DAYS OF NAUSEA AND EMESIS. STATES IT'S BEEN TERRIBLE. ENCOURAGED PATIENT TO EAT AND DRINK FLUIDS, AND NOTIFY RN FOR ANY C/O NAUSEA. ENCOURAGED PATIENT THAT TODAY IS A NEW DAY, AND WE WILL SEE HOW IT GOES W/ PHYSICAL THERAPY. ATTEMPTING TO AVOID NARCOTICS IF POSSIBLE. PATIENT ORIENTED BUT FORGETFUL. SPOUSE AT BEDSIDE.
--- NOTE | 2019-06-30 11:46 | CM.DPNOTE ---
DCP Cont: This COMMUNITY ADMINISTRATOR had anticipated pt's DC yesterday, home w/family. Spoke w/PA Ruth yesterday morning and discussed pt's nausea/vomiting. At that time, pt had only worked with PT for the initial eval and home was recommended. CAROLYN Bates and PA Ruth agreed pt might benefit from another night since she continued to have N/V which was limiting her work w/the therapy team. This COMMUNITY ADMINISTRATOR encouraged Ruth to consider placing a DC home pending PT. Later yesterday learned that pt had refused PT throughout the day, multiple PT professionals attempted a session. Pt was asking to stay the night because she felt weak, still felt nauseous and hadn't gotten up w/PT. Spouse agreed. Ortho PA did not DC pt home yesterday. Today, spoke w/Ortho PA Taylor and Cristina in PT who explained to this COMMUNITY ADMINISTRATOR that pt/spouse are requesting an additional day in the hospital, Taylor recommends pt DC today with Home Health? Taylor states she told pt/spouse that pt needs to get up w/PT today and clear stairs, pt continued to complain of N/V and weakness. Both PA Taylor and BRIDGE CONSTRUCTION INSPECTOR Cristina explain they will not clear pt for a DC home w/o her being up and cleared from a physical therapy point of view, Taylor expects pt to remain here an additional night and DC home w/HH and family tomorrow. This COMMUNITY ADMINISTRATOR met w/pt and spouse to review DCP options and review pt's observation status. Pt explains that she has only eaten a few bites of toast today and continues to feel weak, she feels she will be ready to DC home tomorrow morning. This COMMUNITY ADMINISTRATOR educated pt about the cost of refusing PT yesterday for her recovery course, and pt understood but reiterated she could not move yesterday d/t N/V. This COMMUNITY ADMINISTRATOR suggested that pt/spouse strongly consider going home today w/ HH service and we discussed what HH provides. Then discussed observation status and being medically stable, potentially, to DC home today. Pt/spouse refuse HH and do not want people coming to their home. Pt/spouse state they have Medicare and and are not worried about cost of staying an additional night under observation status. Pt/spouse feel confident about return home, w/son to assist w/ transportation, stairs and pt assist once pt is home, on Tuesday, outpt PT appt arranged for Tuesday. This COMMUNITY ADMINISTRATOR explained that Ortho PA Taylor would speak with them if pt needed to be medically cleared and DC home today and pt/spouse understood. P: DC expected Tuesday, home w/family and outpt PT. NAV Worthington RN, aware of this patient and at this time, pt remains observation status. EVELYN Vasques
--- NOTE | 2019-06-30 11:46 | PT.IPTN ---
Current Diagnoses Unilateral primary osteoarthritis, right knee (06/27/19) Presence of unspecified artificial knee joint (06/27/19) Surgery Performed Operation Date: 06/27/19 09:30 Actual Procedures p Total Knee Arthroplasty(Right) - Ander Billings MD Physical Therapy Treatment Note M2 PT-IP Current Condition Start: 06/27/19 17:03 Freq: NEEDED Status: Active Protocol: Document 06/28/19 09:40 HH (Rec: 06/28/19 10:37 HH [id number]) Physical Therapy Current Condition Current Condition Evaluation Date 06/28/19 Treatment Diagnosis R TKA, difficulty in walking Onset Date 06/27/19 Weight Bearing Status Weight Bearing Status Weight Bear as Tolerated M3 PT-IP Subjective Start: 06/27/19 17:03 Freq: NEEDED Status: Active Protocol: Document 06/30/19 10:00 CLB (Rec: 06/30/19 11:46 CLB [id number]) Subjective Physical Therapy Visit Type Type Treatment Note Visit Start Time 10:00 Visit Stop Time 10:35 Total Visit Minutes 35 Number of MATERNITY NURSE Visits 1 Physical Therapy Visit Comments Patient Comments Pt willing to participate with therapy. Pt states she wants to go home tomorrow because she has been nauseous for days and has only been able to eat a half piece of toast this morning. Patient Goals To go home tomorrow Tuesday Therapy Pain Assessment Pain When Pain Assessed During Mobility Pain Present Pain Present Pain Reported Location r knee Intensity 6 Scale Used Numeric (1 - 10) Pain Management Techniques Modification of Treatment Re-positioning Timing of Activity with Medications M4 PT-IP Mobility and Gait Start: 06/27/19 17:03 Freq: NEEDED Status: Active Protocol: Document 06/30/19 10:00 CLB (Rec: 06/30/19 11:46 CLB [id number]) PT-Bed Mobility Assessment Supine to Sit Supine to Sit Contact Guard Assistance 1 Person Assistance Head of Bed Elevated Scooting Scooting to Edge of Bed Contact Guard Assistance PT-Transfer Assessment Sit to and From Stand Sit to and from Stand Contact Guard Assistance 1 Person Assistance Use of Upper Extremities Equipment Transfer Assistive Device Gait Belt Front Wheeled Walker Orthotic/Prosthetic Devices or Brace: No Transfers Transfer Destination Chair Bedside Commode Transfer Technique Stand Step Pivot Transfer Ability Level of Assist Contact Guard Assistance Comments Mobility Comments Pt required CGA to EOB and CGA sit-stand with cues for leg out before standing. Pt required cues for hand placement with sit<>stand for safety. Gait Assessment Gait Gait Assistance Required: Contact Guard Assist 1 Person Assist Distance (Feet) 14 Able to Maintain Weight Bearing Status Yes During Gait Assistive Devices Assistive Device Gait Belt Front Wheeled Walker Orthotic/Prosthetic Devices or Brace: No Gait Deviations General Gait Pattern Antalgic Decreased Stride Length Decreased Feet Clearance Flexed Trunk Step-to Gait Factors Limiting Gait Function Factors Limiting Gait Function Decreased Activity Tolerance Decreased Strength Difficulty Following Directions Limited Range of Motion Pain Poor Balance Poor Safety Awareness Comments Gait Comments Pt ambulated ~7ft before feeling shaky and needing to sit on BSC to rest. Pt rested several minutes and felt she wouldn't be able to walk to therapy stairs and get up stairs this session. Pt stood with CGA and walked ~7ft to chair. Stair Climbing Assessment Comments Stair Climbing Comments Unable at this time. Will trial stairs this afternoon. M5 PT-IP Objective Assessments Start: 06/27/19 17:03 Freq: NEEDED Status: Active Protocol: Document 06/28/19 09:40 HH (Rec: 06/28/19 10:37 HH [id number]) Orientation Orientation/Cognition Level of Alertness Alert Orientation Name Age Birthday Month Date Year Day of Week Place Situation Language Function Ability No Deficits Noted Safety Awareness Understands Safety Issues Memory Description Short Term Impaired Comments pt requires cues constantly for walker management and sequencing. She often presents forgetful of events that just happened couple minutes ago. Gross Range of Motion Upper Extremity ROM Assessment Within Functional Limits Lower Extremity ROM Assessment Right Impaired Impairments 15-90 degrees AROM (knee) Strength Upper Extremity Strength Assessment Within Functional Limits Lower Extremity Strength Assessment Right Impaired Hip 4/5 Knee 3-/5 Coordination Assessment Gross Coordination Gross Coordination WNL Sensation Assessment Sensation Gross Sensation WNL M6 PT-IP Treatment Start: 06/27/19 17:03 Freq: NEEDED Status: Active Protocol: Document 06/30/19 10:00 CLB (Rec: 06/30/19 11:46 CLB [id number]) Physical Therapy Treatment Exercises Exercises Ankle Pumps Gluteal Sets Heel Slides Short Arc Quads Education Education Provided Precautions Weight Bearing Status Safety Other Treatments Other Treatment Performed Further education on performing AP and proper position for leg while elevated. M7 PT-IP Assessment and Plan Start: 06/27/19 17:03 Freq: NEEDED Status: Active Protocol: Document 06/30/19 10:00 CLB (Rec: 06/30/19 11:46 CLB [id number]) PT Summary Assessment and Plan Potential Rehabilitation Potential Good Status of Condition at Evaluation Stable Summary Impairments Pain Gait Activity Tolerance Progress Towards Goals Slow Progress due to Activity Tolerance Assessment Summary Pt requires CGA for bed mobility and transfers with cues for hand placement for safety. Pt requires CGA for gait and cues for proper sequencing steps and walker management. Pt unable to ambulate further than 7 ft before needing a seated rest break, pt then able to ambulate ~7 ft back to chair. Pt will need to perform stair training before able to safely discharge home and increase gait distance. Pt present for CG training. If pt is not able to increase ambulation and climb stiars safely pt may require SNF rehab to improve strength and mobility before returning home . Goals Bed Mobility Goal Standby Assistance Transfer Goal Standby Assistance Gait Goal Standby Assistance Gait Distance 100 Other Goals climb 5 steps with B rails CGA Days to Meet Goals 5 Frequency of Treatment Frequency Of Treatment Twice a Day Treatment Plan Physical Therapy Treatment Plan Bed Mobility Training Transfer Training Gait Training Therapeutic Exercise Balance Retraining Post Op Education Discharge Planning Hot or Cold Pack Neuromuscular Re-ed Other Recommendations and Next Treatment bed mob, transfers training, Focus gait and stair training as audelia Recommendations To Nursing Amount of Assist Needed 1 Person Assist Discharge Recommendations PT Discharge Recommendations Home with Assistance SNF Rehab Outpatient PT Other Discharge Recommendations pt may require SNF rehab if pt is unable to safely climb stairs. Equipment Needed for Home Before Shower chair( stated he Discharge would buy one before pt d/c)
--- NOTE | 2019-06-30 15:00 | PT.IPTN ---
Current Diagnoses Unilateral primary osteoarthritis, right knee (06/27/19) Presence of unspecified artificial knee joint (06/27/19) Surgery Performed Operation Date: 06/27/19 09:30 Actual Procedures p Total Knee Arthroplasty(Right) - Ander Billings MD Physical Therapy Treatment Note M2 PT-IP Current Condition Start: 06/27/19 17:03 Freq: NEEDED Status: Active Protocol: Document 06/28/19 09:40 HH (Rec: 06/28/19 10:37 HH [id number]) Physical Therapy Current Condition Current Condition Evaluation Date 06/28/19 Treatment Diagnosis R TKA, difficulty in walking Onset Date 06/27/19 Weight Bearing Status Weight Bearing Status Weight Bear as Tolerated M3 PT-IP Subjective Start: 06/27/19 17:03 Freq: NEEDED Status: Active Protocol: Document 06/30/19 13:15 LJ (Rec: 06/30/19 15:00 LJ [id number]) Subjective Physical Therapy Visit Type Type Treatment Note Visit Start Time 13:15 Visit Stop Time 13:45 Total Visit Minutes 30 Number of CLINICAL TRAINING SPECIALIST Visits 2 Physical Therapy Visit Comments Patient Comments Pt willing to participate with therapy. Pt states she wants to go home. Willing to attempt stairs this tx Patient Goals To go home tomorrow Tuesday M4 PT-IP Mobility and Gait Start: 06/27/19 17:03 Freq: NEEDED Status: Active Protocol: Document 06/30/19 13:15 LJ (Rec: 06/30/19 15:00 LJ [id number]) PT-Transfer Assessment Sit to and From Stand Sit to and from Stand Contact Guard Assistance 1 Person Assistance Use of Upper Extremities Equipment Transfer Assistive Device Gait Belt Front Wheeled Walker Transfers Transfer Destination Bed Transfer Technique Stand Step Pivot Transfer Ability Level of Assist Contact Guard Assistance Comments Mobility Comments Pt requiring CGA for transfer from chair to bed. Sit<>stand was controlled and pt able to position herself into bed. Gait Assessment Gait Gait Assistance Required: Contact Guard Assist 1 Person Assist Distance (Feet) 40 Able to Maintain Weight Bearing Status Yes During Gait Assistive Devices Assistive Device Gait Belt Front Wheeled Walker Orthotic/Prosthetic Devices or Brace: No Gait Deviations General Gait Pattern Antalgic Decreased Stride Length Decreased Feet Clearance Flexed Trunk Step-to Gait Factors Limiting Gait Function Factors Limiting Gait Function Decreased Activity Tolerance Decreased Strength Difficulty Following Directions Limited Range of Motion Pain Poor Balance Poor Safety Awareness Comments Gait Comments Pt ambulated from chair in room to stairs and back. CGA with cues for posture Stair Climbing Assessment Evaluation Level of Assist On Stairs Contact Guard Assistance 1 Person Assistance Devices Stair Climbing Assistive Devices Left Railing Right Railing Technique/Endurance Stair Climbing Direction Ascend and Descend Stair Climbing Technique Step to Step Number of Steps Climbed 3 Stair Climbing Set # Repetitions (reps) 2 Comments Stair Climbing Comments Pt went up stairs using both railings and came down backwards x2. States this is how she does it at home. States she has a ramp in the back of her house and a wheel chair which she will use to get into house when she goes home. M5 PT-IP Objective Assessments Start: 06/27/19 17:03 Freq: NEEDED Status: Active Protocol: Document 06/28/19 09:40 HH (Rec: 06/28/19 10:37 HH [id number]) Orientation Orientation/Cognition Level of Alertness Alert Orientation Name Age Birthday Month Date Year Day of Week Place Situation Language Function Ability No Deficits Noted Safety Awareness Understands Safety Issues Memory Description Short Term Impaired Comments pt requires cues constantly for walker management and sequencing. She often presents forgetful of events that just happened couple minutes ago. Gross Range of Motion Upper Extremity ROM Assessment Within Functional Limits Lower Extremity ROM Assessment Right Impaired Impairments 15-90 degrees AROM (knee) Strength Upper Extremity Strength Assessment Within Functional Limits Lower Extremity Strength Assessment Right Impaired Hip 4/5 Knee 3-/5 Coordination Assessment Gross Coordination Gross Coordination WNL Sensation Assessment Sensation Gross Sensation WNL M6 PT-IP Treatment Start: 06/27/19 17:03 Freq: NEEDED Status: Active Protocol: Document 06/30/19 10:00 CLB (Rec: 06/30/19 11:46 CLB [id number]) Physical Therapy Treatment Exercises Exercises Ankle Pumps Gluteal Sets Heel Slides Short Arc Quads Education Education Provided Precautions Weight Bearing Status Safety Other Treatments Other Treatment Performed Further education on performing AP and proper position for leg while elevated. M7 PT-IP Assessment and Plan Start: 06/27/19 17:03 Freq: NEEDED Status: Active Protocol: Document 06/30/19 13:15 LJ (Rec: 06/30/19 15:00 LJ [id number]) PT Summary Assessment and Plan Summary Impairments Pain Gait Activity Tolerance Progress Towards Goals Slow Progress due to Activity Tolerance Assessment Summary Pt improving with mobility and gait. Stair training was sucessful x 2 and pt ambulated w/o complaint of pain. Transfers are slow but safe and controlled. Goals Bed Mobility Goal Standby Assistance Transfer Goal Standby Assistance Gait Goal Standby Assistance Gait Distance 100 Other Goals climb 5 steps with B rails CGA Days to Meet Goals 5 Frequency of Treatment Frequency Of Treatment Twice a Day Treatment Plan Physical Therapy Treatment Plan Bed Mobility Training Transfer Training Gait Training Therapeutic Exercise Balance Retraining Post Op Education Discharge Planning Hot or Cold Pack Neuromuscular Re-ed Other Recommendations and Next Treatment bed mob, transfers training, Focus gait and stair training as audelia Recommendations To Nursing Amount of Assist Needed 1 Person Assist Discharge Recommendations PT Discharge Recommendations Home with Assistance SNF Rehab Outpatient PT
[2019-07-01] MEDS: LACTATED RINGERS 1,000 ML 125 ML IV (00:39)
[2019-07-01 03:00] VITALS: BP 159/77; PULSE 99; RESP 18; TEMP 37.1; O2SAT 92
[2019-07-01 08:00] VITALS: BP 153/81; PULSE 73; RESP 16; TEMP 36.7; O2SAT 16
--- NOTE | 2019-07-01 08:16 | CM.DPC ---
Addendum entered by EVELYN Beach 07/01/19 10:18: ADD: Per Ortho MD, pt medically stable to d/c home today with no identified barriers to discharge. Spouse still bedside and will provide transport home. No SW needs at this time. BF Original Note: DCP Cont: SW met bedside with pt and spouse and explained role and confirmed that pt is feeling much better today and does not have nausea vomiting like yesterday and is now eating some breakfast and waiting for MD to round to confirm she can d/c home today. Per PT, pt completed stairs and CG training for plan of home today. Pt and spouse do not anticipate any SW needs at d/c and preference is home today with scheduled outpt PT appointment already set up for tomorrow 07/02/19. No IMM signed as pt changed to OBS Status and Medicare Message does not apply. Plan: Patient to d/c home via spouse POV later today after MD rounds and writes d/c orders. No SW needs at this time. EVELYN Beach
[2019-07-01] MEDS: LEVOTHYROXINE 112 MCG TABLET PO (08:28)
[2019-07-01] MEDS: SENNOSIDES 8.6 MG TABLET PO (08:28)
[2019-07-01] MEDS: DOCUSATE 100 MG CAPSULE PO (08:28)
[2019-07-01] MEDS: AMLODIPINE 5 MG TABLET PO (08:28)
[2019-07-01] MEDS: ASPIRIN EC 81 MG TABLET PO (08:28)
[2019-07-01] MEDS: ACETAMINOPHEN 325 MG TABLET 975 MG PO (08:28)
[2019-07-01] MEDS: MELOXICAM 7.5 MG TABLET 15 MG PO (08:31)
--- NOTE | 2019-07-01 09:10 | PT.IPTN ---
Current Diagnoses Unilateral primary osteoarthritis, right knee (06/27/19) Presence of unspecified artificial knee joint (06/27/19) Surgery Performed Operation Date: 06/27/19 09:30 Actual Procedures p Total Knee Arthroplasty(Right) - Ander Billings MD Physical Therapy Treatment Note M2 PT-IP Current Condition Start: 06/27/19 17:03 Freq: NEEDED Status: Active Protocol: Document 06/28/19 09:40 HH (Rec: 06/28/19 10:37 HH [id number]) Physical Therapy Current Condition Current Condition Evaluation Date 06/28/19 Treatment Diagnosis R TKA, difficulty in walking Onset Date 06/27/19 Weight Bearing Status Weight Bearing Status Weight Bear as Tolerated M3 PT-IP Subjective Start: 06/27/19 17:03 Freq: NEEDED Status: Active Protocol: Document 07/01/19 08:45 CLB (Rec: 07/01/19 10:51 CLB [id number]) Subjective Physical Therapy Visit Type Type Treatment Note Visit Start Time 08:45 Visit Stop Time 09:08 Total Visit Minutes 23 Number of PROGRAM AIDE Visits 3 Physical Therapy Visit Comments Patient Comments Pt willing to participate with therapy. Pt states she wants to go home. Therapy Pain Assessment Pain When Pain Assessed During Mobility Pain Present Pain Present Pain Reported Location r knee Intensity 3 Scale Used Numeric (1 - 10) Pain Management Techniques Modification of Treatment Re-positioning Timing of Activity with Medications M4 PT-IP Mobility and Gait Start: 06/27/19 17:03 Freq: NEEDED Status: Active Protocol: Document 07/01/19 08:45 CLB (Rec: 07/01/19 10:51 CLB [id number]) PT-Transfer Assessment Sit to and From Stand Sit to and from Stand Contact Guard Assistance 1 Person Assistance Use of Upper Extremities Equipment Transfer Assistive Device Gait Belt Front Wheeled Walker Orthotic/Prosthetic Devices or Brace: No Transfers Transfer Destination Chair Transfer Technique Stand Step Pivot Transfer Ability Level of Assist Contact Guard Assistance Gait Assessment Gait Gait Assistance Required: Standby Assistance 1 Person Assist Distance (Feet) 60 Able to Maintain Weight Bearing Status Yes During Gait Assistive Devices Assistive Device Gait Belt Front Wheeled Walker Orthotic/Prosthetic Devices or Brace: No Gait Deviations General Gait Pattern Antalgic Decreased Stride Length Decreased Feet Clearance Flexed Trunk Step-to Gait Factors Limiting Gait Function Factors Limiting Gait Function Decreased Activity Tolerance Decreased Strength Difficulty Following Directions Limited Range of Motion Pain Poor Balance Poor Safety Awareness Comments Gait Comments Pt ambulated ~60ft SBA with FWW in marie with step to gait pattern. M5 PT-IP Objective Assessments Start: 06/27/19 17:03 Freq: NEEDED Status: Active Protocol: Document 06/28/19 09:40 HH (Rec: 06/28/19 10:37 HH [id number]) Orientation Orientation/Cognition Level of Alertness Alert Orientation Name Age Birthday Month Date Year Day of Week Place Situation Language Function Ability No Deficits Noted Safety Awareness Understands Safety Issues Memory Description Short Term Impaired Comments pt requires cues constantly for walker management and sequencing. She often presents forgetful of events that just happened couple minutes ago. Gross Range of Motion Upper Extremity ROM Assessment Within Functional Limits Lower Extremity ROM Assessment Right Impaired Impairments 15-90 degrees AROM (knee) Strength Upper Extremity Strength Assessment Within Functional Limits Lower Extremity Strength Assessment Right Impaired Hip 4/5 Knee 3-/5 Coordination Assessment Gross Coordination Gross Coordination WNL Sensation Assessment Sensation Gross Sensation WNL M6 PT-IP Treatment Start: 06/27/19 17:03 Freq: NEEDED Status: Active Protocol: Document 07/01/19 08:45 CLB (Rec: 07/01/19 10:51 CLB [id number]) Physical Therapy Treatment Exercises Exercises Ankle Pumps Gluteal Sets Heel Slides Short Arc Quads Education Education Provided Precautions Weight Bearing Status Safety M7 PT-IP Assessment and Plan Start: 06/27/19 17:03 Freq: NEEDED Status: Active Protocol: Document 07/01/19 08:45 CLB (Rec: 07/01/19 10:51 CLB [id number]) PT Summary Assessment and Plan Summary Impairments Pain Gait Activity Tolerance Progress Towards Goals Progressing Toward Goals Assessment Summary Pt improving with all mobility able to increase gait to ~ 60ft SBA/FWW. Pt had no c/o nausea during tx. present during tx session. Goals Bed Mobility Goal Standby Assistance Transfer Goal Standby Assistance Gait Goal Standby Assistance Gait Distance 100 Other Goals climb 5 steps with B rails CGA Days to Meet Goals 5 Frequency of Treatment Frequency Of Treatment Twice a Day Treatment Plan Physical Therapy Treatment Plan Bed Mobility Training Transfer Training Gait Training Therapeutic Exercise Balance Retraining Post Op Education Discharge Planning Hot or Cold Pack Neuromuscular Re-ed Recommendations To Nursing Amount of Assist Needed 1 Person Assist Discharge Recommendations PT Discharge Recommendations Home with Assistance Outpatient PT Equipment Needed for Home Before Shower chair( stated he Discharge would buy one before pt d/c)
--- NOTE | 2019-07-01 09:25 | PM.PNPO.1 ---
Subjective Date Patient Seen: 07/01/19 Time Patient Seen: 09:25 Interval history: Patient is status post total knee arthroplasty doing very well this morning. Patient states she is doing significantly better than she was since surgery. Has been up and ambulating very well without any issues. Ready to go home. Exam Vital Signs (past 8 hours): - 07/01/19 03:00 Temperature 98.7 F Pulse Rate 99 H Respiratory Rate 18 Blood Pressure 159/77 H Pulse Oximetry 92 Fraction of Inspired Oxygen 21 Oxygen Delivery Method Room Air Oxygen Flow Rate 0 Narrative Exam Narrative: On physical exam, patient's dressing is intact. No sign of any straight through drainage. Positive dorsiflexion and plantar flexion of her toes and ankles. Palpable pedal pulses. Nontender to palpation over the posterior aspect of the calf. Objective Labs Result Diagrams: 06/28/19 06:33 Assessment & Plan Post-op Postoperative Procedures Operation Date: 06/27/19 09:30 Actual Procedures Side Surgeon p Total Knee Arthroplasty Right Ander Billings MD Postoperative day: 4 Postoperative status: doing well Postoperative status narrative: Patient doing very well this morning status post right total knee arthroplasty. Postoperative plan: routine post-op care and discharge Postoperative plan narrative: Patient will be discharged home today. Time Spent With Patient less than 15 minutes Quality VTE Deep Vein Thrombosis/Pulmonary Embolism Present on Admission: No
--- NOTE | 2019-07-01 10:16 | PC.NURSE ---
Addendum entered by Julia Frausto R.N. 07/01/19 11:05: ROSE MARIE FUENTES dc'd, belongings gathered, reviewed medications, instructions with pt, script provided, belongings gathered, including clothing, bag, glasses, tsf to wc and baker head escorted to spouse's car. Original Note: AM NOTE - pt is alert, up to chair before breakfast, talkative, mildly forgetful, states no nausea now and audelia gen diet, + bt, discussed constipation and pt states I have medicine at home, given senna and nicole this am, declines prune juice, discussed adding miralax and info given to spouse, pain 4 on scale 0/10, given scheduled tylenol and miloxicam this am, samantha dsg w/small spot shadow drainage, green light flashing, phys therapy in this am and cleared for home, in and pt will rose marie.
== END 2019-07-01 11:07 | disposition home or self-care (01) | DRG 983 ==
LOC: AC 07-01 09:17 → OR 07-02 09:01
PROVIDERS: Admitting Provider Physician Assistant; PCP Internal Medicine; Visit Provider Orthopaedic Surgery
PROC: 0SRC0JZ Replacement of Right Knee Joint with Synthetic Substitute, Open Approach (ICD-10-PCS; CPT 27447; principal; 2019-06-27 09:30)
DX: R11.2 Nausea with vomiting, unspecified (principal); M17.11 Unilateral primary osteoarthritis, right knee; Z96.652 Presence of left artificial knee joint; E11.9 Type 2 diabetes mellitus without complications; I10 Essential (primary) hypertension
CPT/HCPCS: 36415; 64450; 73560; 85014; 85018; 94760; 94762; 97110; 97116; 97161; 97530; C1776; G0378; C9290; J2250; J2405; J2704; J3010

== ENCOUNTER 2019-10-24 09:00 | Outpatient (RCR) | payer MEDICARE, OTHER, SELFPAY ==
--- NOTE | 2019-03-16 10:26 | PT.OIE ---
Current Diagnoses Unilateral primary osteoarthritis, right knee (03/16/19) Difficulty in walking, not elsewhere classified (03/16/19) Weakness (03/16/19) Past Medical History (Last Updated 03/12/19 @ 14:50 by Sherrie Alvarez, RN) Anemia (Acute) Aortic regurgitation (Acute) Arthritis (Acute) Diabetes (Acute) Easy bruisability (Acute) Edema (Acute) HLD (hyperlipidemia) (Acute) HTN (hypertension) (Acute) Hypothyroidism (Acute) Injury of right thigh (Acute ~2017) Iron deficiency anemia (Acute) Lipoma (Acute ~06/2014) Osteoarthritis (Acute) RBBB (right bundle branch block) (Acute) Spinal stenosis (Acute) Past Surgical History (Last Updated 03/08/19 @ 13:21 by Sherrie Alvarez RN) History of arthroplasty of left knee (Acute ~2006) Hx of reduction mammoplasty (Acute) Hx of tonsillectomy (Acute) Status post bilateral cataract extraction (Acute ~2014) Provider Visit Care Team Role Provider Type Chrissy Starr MD Primary Care Provider Non-Staff Specialty: Medical Address: [address] [place] [address], [id number] Email: Ander Billings MD Attending Provider Physician Specialty: Orthopedic Surgery Address: [address] [place] [address], [id number] Email: [email or web address] [facility] Initial Evaluation PT-OP-A Visit Information Start: 03/15/19 12:50 Freq: Status: Active Protocol: Document 03/16/19 08:59 [facility] (Rec: 03/16/19 09:45 [facility]AK [id number]) Out-Patient Physical Therapy Visit Information Visit Information Visit Type Initial Evaluation Visit Start Time 09:00 Visit Stop Time 09:45 Total Visit Minutes 45 Visit Number 1 Number of DIESEL LOCOMOTIVE FIRER Visits 0 Evaluation Information Evaluation Date 03/16/19 Precautions Precautions HTN, osteopenia, hypothyroid PT-OP-B Current Condition Start: 03/15/19 12:50 Freq: Status: Active Protocol: Document 03/16/19 08:59 [facility]AK (Rec: 03/16/19 09:45 SAK [id number]) Current Condition History of Current Condition Current Complaints right knee pain, limited mobility due to degenerative arthritis History of Current Condition Patient has long history of bilateral knee pain. S/p left TKA approx 12 yrs ago. Right TKA scheduled 03/21/[address] Juan Luis Billings. Patient reports she has been taking it easy, trying not to injure her right knee prior to surgery. Treatment Goals Patient/Caregiver Goals Be able to take walks, work in garden, to household activities without pain. Prior Functional Status Baseline Function- ADL's Modified Independent Baseline Function- Mobility Modified Independent Baseline Function- Gait indep without device Baseline Function- Other Gardening, taking walks, housework. 5 stairs to enter, radha railings. 14 stairs to garage , 1 railing. Has raised toilet seat. No grab bars in shower. Plan is to go home at discharge. Current Functional Impairments (Reported) Functional Limitations- ADL's painful Functional Limitations- Mobility/Gait painful Functional Limitations- Recreation/ unable Hobbies Personal Factors Other Personal Factors That May Effect patient very anxious. Therapy/Recovery Supportive PT-OP-C Subjective Start: 03/15/19 12:50 Freq: Status: Active Protocol: Document 03/16/19 08:59 [facility] (Rec: 03/16/19 10:25 [facility] [id number]) OP-PT Subjective Patient Comments Patient Comments patient reports she is very nervous about her upcoming total knee surgery. Patient Questionnaires Lower Extremity Functional Scale LEFS Score 24 LEFS Impairment 60 to 79% Impaired (Score 17- 31) OP-PT Pain Assessment Pain Assessment Grid Paper Pain Assessment Grid Completed Yes Location right knee Intensity 4 PT-OP-G Mobility & Gait Start: 03/15/19 12:50 Freq: Status: Active Protocol: Document 03/16/19 08:59 [facility] (Rec: 03/16/19 10:25 [facility] [id number]) OP Gait Assessment Gait Gait Assistance Required: Standby Assistance Distance (Feet) 50 Assistive Devices Assistive Device Straight Cane Front Wheeled Walker Orthotic/Prosthetic Devices or Brace: No Gait Deviations General Gait Pattern Ataxic Flexed Trunk Factors Limiting Gait Function Factors Limiting Gait Function Limited Range of Motion Pain Comments Gait Comments Patient ambulates with cane on right side (trial use on left with PT instruction but patient unsteady and anxious, prefers to continue on right). Fit of cane and walker checked with good fit noted. Stair Climbing Evaluation Evaluation Level of Assist On Stairs Standby Assistance Devices Stair Climbing Assistive Devices Left Railing Right Railing Technique/Endurance Stair Climbing Direction Descend Stair Climbing Technique Step to Step Number of Steps Climbed 4 Stair Climbing Set # Repetitions (reps) 1 PT-OP-K Range of Motion Start: 03/15/19 12:50 Freq: Status: Active Protocol: Document 03/16/19 08:59 [facility] (Rec: 03/16/19 10:25 [facility] [id number]) Hip Goniometric Range of Motion Hip Measured in Degrees radha Hip ROM WFL Yes Knee Goniometric Range of Motion Knee Measured in Degrees Right Knee ROM WFL No Flexion Active (degrees) 70 Extension Active (degrees) 5 Left Knee ROM WFL Yes Ankle and Foot Goniometric Range of Motion Ankle and Foot Measured in Degrees radha Dorsiflexion with Knee Flexed 5 Dorsiflexion with Knee Extended 0 PT-OP-M Strength Start: 03/15/19 12:50 Freq: Status: Active Protocol: Document 03/16/19 08:59 [facility] (Rec: 03/16/19 10:25 [facility] [id number]) Hip Strength Hip Manual Muscle Testing radha Comments grossly 3+ to 4-/5 radha Knee Strength Knee Manual Muscle Testing Right Flexion (S2) 3+ Fair+ Extension (L3) 3+ Fair+ Comments painful Left Flexion (S2) 4+ Good+ Extension (L3) 4+ Good+ Ankle/Foot Strength Ankle and Foot Manual Muscle Testing radha Dorsiflexion (L4) 4- Good- Plantarflexion (S1) 4- Good- PT-OP-Q Treatments Start: 03/15/19 12:50 Freq: Status: Active Protocol: Document 03/16/19 08:59 [facility] (Rec: 03/16/19 10:25 [facility] [id number]) Self-Care/Home Management Treatment Education Patient Education Home Exercise Program Pain Management Caregiver Education Patient and instructed in what to expect in hospital post-op. Educated in TKA ex with handout issued and instructed to perform 2-3x/day as audelia prior to surgery. Gait training with cane and FWW, and evaluation of ambulation on stairs. Discussed appropriate footwear for safe mobility. Instructed in appropriate elevation and icing of knee to be done after ex at home. PT-OP-R Modalities Start: 03/15/19 12:50 Freq: Status: Active Protocol: Document 03/16/19 08:59 [facility] (Rec: 03/16/19 10:25 [facility] [id number]) Hot Pack/Cold Pack Treatment Cold Pack Location right knee Patient Position Hooklying Treatment Duration (minutes) 10 Patient Tolerance Good PT-OP-T Assessment and Plan Start: 03/15/19 12:50 Freq: Status: Active Protocol: Document 03/16/19 08:59 [facility] (Rec: 03/16/19 10:25 [facility] [id number]) Physical Therapy Assessment Rehab Potential Rehabilitation Potential Good Evaluation Complexity Number of Personal Factors/Comorbidities 3 or More Number of Body Systems Impaired 3 Clinical Presentation at Evaluation Evolving Impairments Impairments Activity Tolerance Gait Pain ROM Strength Goals 3 Impairment decreased right knee strength Short Term Goal (STG) right knee strength 3+/5 STG Duration 4 wks Fpc Goal (LTG) right knee strength 4+/5 LTG Duration 12 wks 2 Impairment decreased knee ROM Short Term Goal (STG) right knee AROM 5-110 STG Duration 4 wks Looseleaf Binder Coverer Goal (LTG) right knee AROM 0-120 LTG Duration 12 wks 1 Impairment antalgic gait with device Short Term Goal (STG) Patient able to ambulate with minimal limp on level surface with appropriate assistive device STG Duration 4 wks Fpc Goal (LTG) Patient able to ambulate without asstive device on level and with railing and alternating pattern on stairs without limp LTG Duration 12 wks Assessment Summary Assessment Patient presents for pre-op PT visit with function-limiting pain right knee. Right TKA scheduled for 03/21/19. Completed pre-op teaching with patient and . First OP PT session scheduled . Will re-eval 03/27/19 and proceed with TKA rehab per physician order. Physical Therapy Plan Frequency and Duration Frequency of Treatment 3x/Week Duration of Treatment 12 wks Plan of Care Start Date 03/16/19 Plan of Care End Date 06/15/19 Therapeutic Interventions Therapeutic Interventions Aquatic Therapy Gait Training Home Exercise Program Neuromuscular Re-education Self-Care/Home Management Soft Tissue Mobilization Taping Therapeutic Activities Therapeutic Exercises Modalities Cold Pack/Ice Massage Electric Stimulation Next Visit Focus/Plan Next Note Type Re-Evaluation Next Visit Plan Post-op TKA re-eval.
--- NOTE | 2019-03-16 10:26 | PT.OPPOC ---
Current Diagnoses Unilateral primary osteoarthritis, right knee (03/16/19) Difficulty in walking, not elsewhere classified (03/16/19) Weakness (03/16/19) Provider Visit Care Team Role Provider Type Chrissy Starr MD Primary Care Provider Non-Staff Specialty: Medical Address: [address] [place] [address], [id number] Email: Ander Billings MD Attending Provider Physician Specialty: Orthopedic Surgery Address: [address] [place] [address], [id number] Email: Plan Of Care PT-OP-T Assessment and Plan Start: 03/15/19 12:50 Freq: Status: Active Protocol: Document 03/16/19 08:59 [facility] (Rec: 03/16/19 10:25 [facility] [id number]) Physical Therapy Assessment Rehab Potential Rehabilitation Potential Good Evaluation Complexity Number of Personal Factors/Comorbidities 3 or More Number of Body Systems Impaired 3 Clinical Presentation at Evaluation Evolving Impairments Impairments Activity Tolerance Gait Pain ROM Strength Goals 3 Impairment decreased right knee strength Short Term Goal (STG) right knee strength 3+/5 STG Duration 4 wks Snf Goal (LTG) right knee strength 4+/5 LTG Duration 12 wks 2 Impairment decreased knee ROM Short Term Goal (STG) right knee AROM 5-110 STG Duration 4 wks Margin Clerk Goal (LTG) right knee AROM 0-120 LTG Duration 12 wks 1 Impairment antalgic gait with device Short Term Goal (STG) Patient able to ambulate with minimal limp on level surface with appropriate assistive device STG Duration 4 wks Snf Goal (LTG) Patient able to ambulate without asstive device on level and with railing and alternating pattern on stairs without limp LTG Duration 12 wks Assessment Summary Assessment Patient presents for pre-op PT visit with function-limiting pain right knee. Right TKA scheduled for 03/21/19. Completed pre-op teaching with patient and . First OP PT session scheduled . Will re-eval 03/27/19 and proceed with TKA rehab per physician order. Physical Therapy Plan Frequency and Duration Frequency of Treatment 3x/Week Duration of Treatment 12 wks Plan of Care Start Date 03/16/19 Plan of Care End Date 06/15/19 Therapeutic Interventions Therapeutic Interventions Aquatic Therapy Gait Training Home Exercise Program Neuromuscular Re-education Self-Care/Home Management Soft Tissue Mobilization Taping Therapeutic Activities Therapeutic Exercises Modalities Cold Pack/Ice Massage Electric Stimulation Next Visit Focus/Plan Next Note Type Re-Evaluation Next Visit Plan Post-op TKA re-eval. Plan of Care Dates Plan of Care Start Date 03/16/19 Plan of Care End Date 06/15/19 Please Sign and Return: I have reviewed this Plan of Care and certify that the skilled therapy services above are required to meet the patient?s needs. Physician Signature Date Printed Name and Credentials Clinical Instructor Signature Printed Name and Credentials
--- NOTE | 2019-07-02 17:25 | PT.OTRE ---
Current Diagnoses Unilateral primary osteoarthritis, right knee (07/02/19) Difficulty in walking, not elsewhere classified (07/02/19) Weakness (07/02/19) Encounter for other orthopedic aftercare (07/02/19) Past Medical History (Last Updated 03/12/19 @ 14:50 by Sherrie Alvarez, RN) Anemia (Acute) Aortic regurgitation (Acute) Arthritis (Acute) Diabetes (Acute) Easy bruisability (Acute) Edema (Acute) HLD (hyperlipidemia) (Acute) HTN (hypertension) (Acute) Hypothyroidism (Acute) Injury of right thigh (Acute ~2017) Iron deficiency anemia (Acute) Lipoma (Acute ~06/2014) Osteoarthritis (Acute) RBBB (right bundle branch block) (Acute) Spinal stenosis (Acute) Surgical History (Last Updated 03/08/19 @ 13:21 by Sherrie Alvarez RN) History of arthroplasty of left knee (Acute ~2006) Hx of reduction mammoplasty (Acute) Hx of tonsillectomy (Acute) Status post bilateral cataract extraction (Acute ~2014) Provider Visit Care Team Role Provider Type Chrissy Starr MD Primary Care Provider Non-Staff Specialty: Medical Address: [address] [place] [address], [phone] Email: Ander Billings MD Attending Provider Physician Specialty: Orthopedic Surgery Address: [address] [place] [address], [phone] Email: [email or web address] Physical Therapy Re-Evaluation PT-OP-A Visit Information Start: 03/15/19 12:50 Freq: Status: Active Protocol: Document 07/02/19 09:30 SAK (Rec: 07/02/19 17:22 SAK [id number]) Out-Patient Physical Therapy Visit Information Visit Information Visit Type Initial Evaluation Visit Start Time 09:30 Visit Stop Time 10:30 Total Visit Minutes 60 Visit Number 2 Number of DIRECTOR CALL CENTER SALES Visits 0 Precautions Precautions HTN, osteopenia, hypothyroid, s/p right TKA 06/21/19 PT-OP-B Current Condition Start: 03/15/19 12:50 Freq: Status: Active Protocol: Document 07/02/19 09:30 SAK (Rec: 07/02/19 17:22 SAK [id number]) Current Condition History of Current Condition Onset Date 06/21/19 Current Complaints decrease right knee ROM, strength, mobility History of Current Condition Was scheduled for right TKA but came down with a cold and surgery was re- scheduled and performed . Hospital recovery complicated by nausea and states was limited in ability to participate in PT.Was discharged home yesterday. Hasn't had a chance to do her HEP yet. Treatment Goals Patient/Caregiver Goals Be able to take walks, work in garden, to household activities without pain. Prior Functional Status Baseline Function- ADL's Modified Independent Baseline Function- Mobility Modified Independent Baseline Function- Gait indep without device Baseline Function- Other Gardening, taking walks, housework. 5 stairs to enter, radha railings. 14 stairs to garage , 1 railing. Has raised toilet seat. No grab bars in shower. Plan is to go home at discharge. Current Functional Impairments (Reported) Functional Limitations- ADL's painful Functional Limitations- Mobility/Gait painful, uses FWW (height adjusted today) Functional Limitations- Recreation/ unable Hobbies Personal Factors Other Personal Factors That May Effect patient very anxious. Therapy/Recovery Supportive PT-OP-C Subjective Start: 03/15/19 12:50 Freq: Status: Active Protocol: Document 07/02/19 09:30 [facility] (Rec: 07/02/19 17:22 [facility] [id number]) OP-PT Subjective Patient Comments Patient Comments Patient c/o discomfort from post-op vlad wrap around right knee; was told to leave on until she sees physician PT-OP-G Mobility & Gait Start: 03/15/19 12:50 Freq: Status: Active Protocol: Document 07/02/19 09:30 [facility] (Rec: 07/02/19 17:22 [facility] [id number]) OP Gait Assessment Gait Gait Assistance Required: Standby Assistance Distance (Feet) 60 Assistive Devices Assistive Device Front Wheeled Walker Orthotic/Prosthetic Devices or Brace: No Gait Deviations General Gait Pattern Decreased Stride Length Decreased Feet Clearance Factors Limiting Gait Function Factors Limiting Gait Function Limited Range of Motion Pain Comments Gait Comments Patient required moderate cues for gait sequencing and to allow right knee to bend normally with gait; tends to hold in extension Stair Climbing Evaluation Comments Stair Climbing Comments performed in hospital step-to pattern and at home. Not performed today in PT. PT-OP-K Range of Motion Start: 03/15/19 12:50 Freq: Status: Active Protocol: Document 07/02/19 09:30 [facility] (Rec: 07/02/19 17:22 [facility] [id number]) Knee Goniometric Range of Motion Knee Measured in Degrees Right Knee ROM WFL No Flexion Active (degrees) 75 Flexion Passive (degrees) 85 Extension Active (degrees) 12 Extension Passive (degrees) 8 Left Knee ROM WFL Yes Ankle and Foot Goniometric Range of Motion Ankle and Foot Measured in Degrees radha Dorsiflexion with Knee Flexed 5 Dorsiflexion with Knee Extended 0 PT-OP-M Strength Start: 03/15/19 12:50 Freq: Status: Active Protocol: Document 07/02/19 09:30 [facility] (Rec: 07/02/19 17:22 [facility] [id number]) Knee Strength Knee Manual Muscle Testing Right Reason Not Measured Orthopedic Precautions Pain Comments patient able to do independent SLR and SAQ though with extensor lag of appro 15 deg Left Flexion (S2) 4+ Good+ Extension (L3) 4+ Good+ Ankle/Foot Strength Ankle and Foot Manual Muscle Testing radha Dorsiflexion (L4) 4- Good- Plantarflexion (S1) 4- Good- PT-OP-Q Treatments Start: 03/15/19 12:50 Freq: Status: Active Protocol: Document 07/02/19 09:30 [facility] (Rec: 07/02/19 17:22 [facility] [id number]) Therapeutic Exercises Supine Exercises SLR Reps/Minutes 10x SAQ Reps/Minutes 10x heel slide Reps/Minutes 10x quad sets Reps/Minutes 10x ankle pumps Reps/Minutes 10x Self-Care/Home Management Treatment Education Patient Education Home Exercise Program Pain Management Other Education edema management Ok to remove vlad wrap from knee per physician office, contact if wet drainage from post-op dressing (Bryan negative pressure wound therapy device in place) obtain compression stocking if increased icing and elevation not helpful in edema reduction PT-OP-R Modalities Start: 03/15/19 12:50 Freq: Status: Active Protocol: Document 07/02/19 09:30 [facility] (Rec: 07/02/19 17:22 [facility] [id number]) Hot Pack/Cold Pack Treatment Cold Pack Location right knee Patient Position Hooklying Treatment Duration (minutes) 10 Patient Tolerance Good Comments elevated on bolster and wedge. PT-OP-T Assessment and Plan Start: 03/15/19 12:50 Freq: Status: Active Protocol: Document 07/02/19 09:30 [facility] (Rec: 07/02/19 17:22 [facility] [id number]) Physical Therapy Assessment Goals Five Impairment right LE swelling Short Term Goal (STG) Decrease right LE swelling by 50% STG Duration 2 wks Group Home Goal (LTG) Minimal right LE swelling LTG Duration 12 wks Four Impairment lower extremity functional scale 30% Short Term Goal (STG) Improve LEFS to at least 50% STG Duration 4 wks Group Home Goal (LTG) Improve LEFS to at least 75% LTG Duration 12 wks 3 Impairment decreased right knee strength Short Term Goal (STG) right knee strength 3+/5 STG Duration 4 wks Char Conveyor Tender Cellar Goal (LTG) right knee strength 4+/5 to improve functional mobility LTG Duration 12 wks 2 Impairment decreased knee ROM Short Term Goal (STG) right knee AROM 5-110 STG Duration 4 wks Group Home Goal (LTG) right knee AROM 0-120 LTG Duration 12 wks 1 Impairment antalgic gait with device Short Term Goal (STG) Patient able to ambulate with minimal limp on level surface with appropriate assistive device STG Duration 4 wks Char Conveyor Tender Cellar Goal (LTG) Patient able to ambulate without asstive device on level and with railing and alternating pattern on stairs without limp LTG Duration 12 wks Assessment Summary Assessment Patient presents to PT s/p right TKA 06/21/19 with complicated recovery. Discharged home from hospital yesterday. Right LE with significant edema; post-op vlad wrap removed (following consultation with surgeon's office)which appeared to be causing some of the edema. Bryan wound dressing in place and intact. Initiated TKA rehab with review of HEP, patient and education regarding edema management including recommending compression stocking if icing and elevation not effective. Patient and demonstrated good understanding. Will benefit from skilled physical therapy for TKA rehab to help her return to more active and pain -free lifestyle. Physical Therapy Plan Frequency and Duration Frequency of Treatment 3x/Week Duration of Treatment 12 wks Plan of Care Start Date 07/02/19 Plan of Care End Date 10/02/19 Therapeutic Interventions Therapeutic Interventions Aquatic Therapy Gait Training Home Exercise Program Neuromuscular Re-education Self-Care/Home Management Soft Tissue Mobilization Taping Therapeutic Activities Therapeutic Exercises Modalities Cold Pack/Ice Massage Electric Stimulation Next Visit Focus/Plan Next Note Type Treatment Note Next Visit Plan Continue TKA rehab.
--- NOTE | 2019-07-02 17:26 | PT.OPPOC ---
Current Diagnoses Unilateral primary osteoarthritis, right knee (07/02/19) Difficulty in walking, not elsewhere classified (07/02/19) Weakness (07/02/19) Encounter for other orthopedic aftercare (07/02/19) Provider Visit Care Team Role Provider Type Chrissy Starr MD Primary Care Provider Non-Staff Specialty: Medical Address: [address] [place] [address], [phone] Email: Ander Billings MD Attending Provider Physician Specialty: Orthopedic Surgery Address: [address] [place] [address], [phone] Email: [email or web address] Plan Of Care PT-OP-T Assessment and Plan Start: 03/15/19 12:50 Freq: Status: Active Protocol: Document 07/02/19 09:30 [facility] (Rec: 07/02/19 17:22 [facility]AK [id number]) Physical Therapy Assessment Goals Five Impairment right LE swelling Short Term Goal (STG) Decrease right LE swelling by 50% STG Duration 2 wks Program Developer Goal (LTG) Minimal right LE swelling LTG Duration 12 wks Four Impairment lower extremity functional scale 30% Short Term Goal (STG) Improve LEFS to at least 50% STG Duration 4 wks Shelter Goal (LTG) Improve LEFS to at least 75% LTG Duration 12 wks 3 Impairment decreased right knee strength Short Term Goal (STG) right knee strength 3+/5 STG Duration 4 wks Shelter Goal (LTG) right knee strength 4+/5 to improve functional mobility LTG Duration 12 wks 2 Impairment decreased knee ROM Short Term Goal (STG) right knee AROM 5-110 STG Duration 4 wks Shelter Goal (LTG) right knee AROM 0-120 LTG Duration 12 wks 1 Impairment antalgic gait with device Short Term Goal (STG) Patient able to ambulate with minimal limp on level surface with appropriate assistive device STG Duration 4 wks Program Developer Goal (LTG) Patient able to ambulate without asstive device on level and with railing and alternating pattern on stairs without limp LTG Duration 12 wks Assessment Summary Assessment Patient presents to PT s/p right TKA 06/21/19 with complicated recovery. Discharged home from hospital yesterday. Right LE with significant edema; post-op vlad wrap removed (following consultation with surgeon's office)which appeared to be causing some of the edema. Bryan wound dressing in place and intact. Initiated TKA rehab with review of HEP, patient and education regarding edema management including recommending compression stocking if icing and elevation not effective. Patient and demonstrated good understanding. Will benefit from skilled physical therapy for TKA rehab to help her return to more active and pain -free lifestyle. Physical Therapy Plan Frequency and Duration Frequency of Treatment 3x/Week Duration of Treatment 12 wks Plan of Care Start Date 07/02/19 Plan of Care End Date 10/02/19 Therapeutic Interventions Therapeutic Interventions Aquatic Therapy Gait Training Home Exercise Program Neuromuscular Re-education Self-Care/Home Management Soft Tissue Mobilization Taping Therapeutic Activities Therapeutic Exercises Modalities Cold Pack/Ice Massage Electric Stimulation Next Visit Focus/Plan Next Note Type Treatment Note Next Visit Plan Continue TKA rehab. Plan of Care Dates Plan of Care Start Date 07/02/19 Plan of Care End Date 10/02/19 Please Sign and Return: I have reviewed this Plan of Care and certify that the skilled therapy services above are required to meet the patient?s needs. Physician Signature Date Printed Name and Credentials Clinical Instructor Signature Printed Name and Credentials
--- NOTE | 2019-07-03 09:19 | PT.OTN ---
Current Diagnoses Unilateral primary osteoarthritis, right knee (07/03/19) Difficulty in walking, not elsewhere classified (07/03/19) Weakness (07/03/19) Encounter for other orthopedic aftercare (07/03/19) Physical Therapy Treatment Note PT-OP-A Visit Information Start: 03/15/19 12:50 Freq: Status: Active Protocol: Document 07/03/19 08:13 [facility] (Rec: 07/03/19 08:51 [facility] [id number]) Out-Patient Physical Therapy Visit Information Visit Information Visit Type Treatment Note Visit Start Time 08:15 Visit Stop Time 09:11 Total Visit Minutes 56 Visit Number 3 Number of FIRE BOAT ENGINEER Visits 0 Precautions Precautions HTN, osteopenia, hypothyroid, s/p right TKA 06/21/19 PT-OP-B Current Condition Start: 03/15/19 12:50 Freq: Status: Active Protocol: Document 07/02/19 09:30 [facility] (Rec: 07/02/19 17:22 [facility]AK [id number]) Current Condition History of Current Condition Onset Date 06/21/19 Current Complaints decrease right knee ROM, strength, mobility History of Current Condition Was scheduled for right TKA but came down with a cold and surgery was re- scheduled and performed . Hospital recovery complicated by nausea and states was limited in ability to participate in PT.Was discharged home yesterday. Hasn't had a chance to do her HEP yet. Treatment Goals Patient/Caregiver Goals Be able to take walks, work in garden, to household activities without pain. Prior Functional Status Baseline Function- ADL's Modified Independent Baseline Function- Mobility Modified Independent Baseline Function- Gait indep without device Baseline Function- Other Gardening, taking walks, housework. 5 stairs to enter, radha railings. 14 stairs to garage , 1 railing. Has raised toilet seat. No grab bars in shower. Plan is to go home at discharge. Current Functional Impairments (Reported) Functional Limitations- ADL's painful Functional Limitations- Mobility/Gait painful, uses FWW (height adjusted today) Functional Limitations- Recreation/ unable Hobbies Personal Factors Other Personal Factors That May Effect patient very anxious. Therapy/Recovery Supportive PT-OP-C Subjective Start: 03/15/19 12:50 Freq: Status: Active Protocol: Document 07/03/19 08:13 [facility] (Rec: 07/03/19 08:51 [facility] [id number]) OP-PT Subjective Patient Comments Patient Comments Reports increase pain after PT session, took Tylenol before PT today. PT-OP-G Mobility & Gait Start: 03/15/19 12:50 Freq: Status: Active Protocol: Document 07/02/19 09:30 [facility] (Rec: 07/02/19 17:22 [facility] [id number]) OP Gait Assessment Gait Gait Assistance Required: Standby Assistance Distance (Feet) 60 Assistive Devices Assistive Device Front Wheeled Walker Orthotic/Prosthetic Devices or Brace: No Gait Deviations General Gait Pattern Decreased Stride Length Decreased Feet Clearance Factors Limiting Gait Function Factors Limiting Gait Function Limited Range of Motion Pain Comments Gait Comments Patient required moderate cues for gait sequencing and to allow right knee to bend normally with gait; tends to hold in extension Stair Climbing Evaluation Comments Stair Climbing Comments performed in hospital step-to pattern and at home. Not performed today in PT. PT-OP-K Range of Motion Start: 03/15/19 12:50 Freq: Status: Active Protocol: Document 07/02/19 09:30 [facility] (Rec: 07/02/19 17:22 [facility] [id number]) Knee Goniometric Range of Motion Knee Right Knee ROM WFL No Flexion Active (degrees) 75 Flexion Passive (degrees) 85 Extension Active (degrees) 12 Extension Passive (degrees) 8 Left Knee ROM WFL Yes Ankle and Foot Goniometric Range of Motion Ankle and Foot radha Dorsiflexion with Knee Flexed 5 Dorsiflexion with Knee Extended 0 PT-OP-M Strength Start: 03/15/19 12:50 Freq: Status: Active Protocol: Document 07/02/19 09:30 [facility] (Rec: 07/02/19 17:22 [facility] [id number]) Knee Strength Knee Manual Muscle Testing Right Reason Not Measured Orthopedic Precautions Pain Comments patient able to do independent SLR and SAQ though with extensor lag of appro 15 deg Left Flexion (S2) 4+ Good+ Extension (L3) 4+ Good+ Ankle/Foot Strength Ankle and Foot Manual Muscle Testing radha Dorsiflexion (L4) 4- Good- Plantarflexion (S1) 4- Good- PT-OP-Q Treatments Start: 03/15/19 12:50 Freq: Status: Active Protocol: Document 07/03/19 08:13 [facility] (Rec: 07/03/19 08:51 [facility] [id number]) Cardio Equipment Recumbent Stepper (Sci-Fit) Duration (Minutes) 5 Resistance 1 Seat Position 11 Other UE's and LE's Gym Equipment Therapeutic Ball supine knee flexion Exercise Details 55 CM therapy ball under right foot Reps/Duration 15x Comments min assist Therapeutic Exercises Supine Exercises SLR Reps/Minutes 10x SAQ Reps/Minutes 10x heel slide Reps/Minutes 10x quad sets Reps/Minutes 10x ankle pumps Reps/Minutes 10x Sitting Exercises LAQ Side bilateral Reps/Minutes 10x knee flexion Side right Equipment Used slider sheet Reps/Minutes 12x Standing Exercises HC stretch Reps/Minutes 2x heel raises Side bilateral Reps/Minutes 10x Gait Training Gait Activity 1 Description level surface Device Used FWW Level of Assistance CGA, cues Distance/Duration 30'x3 Treatment Focus increase knee flexion right, upright posture Self-Care/Home Management Treatment Education Patient Education Home Exercise Program Pain Management Other Education Phoned Dr Billings's office and left message regarding increased drainage on post-op dressing, redness and swelling of knee with concern for infection. No answer while patient in PT; instructed to stop by physician office for guidance. Patient and agreed. PT-OP-R Modalities Start: 03/15/19 12:50 Freq: Status: Active Protocol: Document 07/02/19 09:30 [facility] (Rec: 07/02/19 17:22 [facility] [id number]) Hot Pack/Cold Pack Treatment Cold Pack Location right knee Patient Position Hooklying Treatment Duration (minutes) 10 Patient Tolerance Good Comments elevated on bolster and wedge. PT-OP-T Assessment and Plan Start: 03/15/19 12:50 Freq: Status: Active Protocol: Document 07/03/19 08:13 [facility] (Rec: 07/03/19 08:51 [facility] [id number]) Physical Therapy Assessment Goals Five Impairment right LE swelling Short Term Goal (STG) Decrease right LE swelling by 50% STG Duration 2 wks Correction Goal (LTG) Minimal right LE swelling LTG Duration 12 wks Four Impairment lower extremity functional scale 30% Short Term Goal (STG) Improve LEFS to at least 50% STG Duration 4 wks Correction Goal (LTG) Improve LEFS to at least 75% LTG Duration 12 wks 3 Impairment decreased right knee strength Short Term Goal (STG) right knee strength 3+/5 STG Duration 4 wks Correction Goal (LTG) right knee strength 4+/5 to improve functional mobility LTG Duration 12 wks 2 Impairment decreased knee ROM Short Term Goal (STG) right knee AROM 5-110 STG Duration 4 wks Correction Goal (LTG) right knee AROM 0-120 LTG Duration 12 wks 1 Impairment antalgic gait with device Short Term Goal (STG) Patient able to ambulate with minimal limp on level surface with appropriate assistive device STG Duration 4 wks Soa Integration Developer Goal (LTG) Patient able to ambulate without asstive device on level and with railing and alternating pattern on stairs without limp LTG Duration 12 wks Assessment Summary Assessment Patient presents with increased drainage on post-op dressing with increased redness and edema at knee. Patient temperature 98.4. Good tolerance for ther ex with AROM 12-95, PROM 5-100. Physical Therapy Plan Frequency and Duration Frequency of Treatment 3x/Week Duration of Treatment 12 wks Plan of Care Start Date 07/02/19 Plan of Care End Date 10/02/19 Therapeutic Interventions Therapeutic Interventions Aquatic Therapy Gait Training Home Exercise Program Neuromuscular Re-education Self-Care/Home Management Soft Tissue Mobilization Taping Therapeutic Activities Therapeutic Exercises Modalities Cold Pack/Ice Massage Electric Stimulation Next Visit Focus/Plan Next Note Type Treatment Note Next Visit Plan Pending patient status after consult with physician continue TKA rehab; increase time on Biodex, add stair training on 4 stairs, stair lunge stretch, standing knee flexion. Increase gait training distance.
--- NOTE | 2019-07-03 16:34 | PT.OTN ---
Current Diagnoses Unilateral primary osteoarthritis, right knee (07/03/19) Difficulty in walking, not elsewhere classified (07/03/19) Weakness (07/03/19) Encounter for other orthopedic aftercare (07/03/19) Physical Therapy Treatment Note PT-OP-A Visit Information Start: 03/15/19 12:50 Freq: Status: Active Protocol: Document 07/03/19 08:13 SAK (Rec: 07/03/19 08:51 SAK [id number]) Out-Patient Physical Therapy Visit Information Visit Information Visit Type Treatment Note Visit Start Time 08:15 Visit Stop Time 09:11 Total Visit Minutes 56 Visit Number 3 Number of WAD IMPREGNATOR Visits 0 Precautions Precautions HTN, osteopenia, hypothyroid, s/p right TKA 06/21/19 PT-OP-B Current Condition Start: 03/15/19 12:50 Freq: Status: Active Protocol: Document 07/02/19 09:30 SAK (Rec: 07/02/19 17:22 SAK [id number]) Current Condition History of Current Condition Onset Date 06/21/19 Current Complaints decrease right knee ROM, strength, mobility History of Current Condition Was scheduled for right TKA but came down with a cold and surgery was re- scheduled and performed . Hospital recovery complicated by nausea and states was limited in ability to participate in PT.Was discharged home yesterday. Hasn't had a chance to do her HEP yet. Treatment Goals Patient/Caregiver Goals Be able to take walks, work in garden, to household activities without pain. Prior Functional Status Baseline Function- ADL's Modified Independent Baseline Function- Mobility Modified Independent Baseline Function- Gait indep without device Baseline Function- Other Gardening, taking walks, housework. 5 stairs to enter, radha railings. 14 stairs to garage , 1 railing. Has raised toilet seat. No grab bars in shower. Plan is to go home at discharge. Current Functional Impairments (Reported) Functional Limitations- ADL's painful Functional Limitations- Mobility/Gait painful, uses FWW (height adjusted today) Functional Limitations- Recreation/ unable Hobbies Personal Factors Other Personal Factors That May Effect patient very anxious. Therapy/Recovery Supportive PT-OP-C Subjective Start: 03/15/19 12:50 Freq: Status: Active Protocol: Document 07/03/19 08:13 SAK (Rec: 07/03/19 08:51 [facility] [id number]) OP-PT Subjective Patient Comments Patient Comments Reports increase pain after PT session, took Tylenol before PT today. PT-OP-G Mobility & Gait Start: 03/15/19 12:50 Freq: Status: Active Protocol: Document 07/02/19 09:30 [facility] (Rec: 07/02/19 17:22 [facility] [id number]) OP Gait Assessment Gait Gait Assistance Required: Standby Assistance Distance (Feet) 60 Assistive Devices Assistive Device Front Wheeled Walker Orthotic/Prosthetic Devices or Brace: No Gait Deviations General Gait Pattern Decreased Stride Length Decreased Feet Clearance Factors Limiting Gait Function Factors Limiting Gait Function Limited Range of Motion Pain Comments Gait Comments Patient required moderate cues for gait sequencing and to allow right knee to bend normally with gait; tends to hold in extension Stair Climbing Evaluation Comments Stair Climbing Comments performed in hospital step-to pattern and at home. Not performed today in PT. PT-OP-K Range of Motion Start: 03/15/19 12:50 Freq: Status: Active Protocol: Document 07/02/19 09:30 [facility] (Rec: 07/02/19 17:22 [facility] [id number]) Knee Goniometric Range of Motion Knee Right Knee ROM WFL No Flexion Active (degrees) 75 Flexion Passive (degrees) 85 Extension Active (degrees) 12 Extension Passive (degrees) 8 Left Knee ROM WFL Yes Ankle and Foot Goniometric Range of Motion Ankle and Foot radha Dorsiflexion with Knee Flexed 5 Dorsiflexion with Knee Extended 0 PT-OP-M Strength Start: 03/15/19 12:50 Freq: Status: Active Protocol: Document 07/02/19 09:30 [facility] (Rec: 07/02/19 17:22 [facility] [id number]) Knee Strength Knee Manual Muscle Testing Right Reason Not Measured Orthopedic Precautions Pain Comments patient able to do independent SLR and SAQ though with extensor lag of appro 15 deg Left Flexion (S2) 4+ Good+ Extension (L3) 4+ Good+ Ankle/Foot Strength Ankle and Foot Manual Muscle Testing radha Dorsiflexion (L4) 4- Good- Plantarflexion (S1) 4- Good- PT-OP-Q Treatments Start: 03/15/19 12:50 Freq: Status: Active Protocol: Document 07/03/19 08:13 [facility] (Rec: 07/03/19 08:51 [facility] [id number]) Cardio Equipment Recumbent Stepper (Sci-Fit) Duration (Minutes) 5 Resistance 1 Seat Position 11 Other UE's and LE's Gym Equipment Therapeutic Ball supine knee flexion Exercise Details 55 CM therapy ball under right foot Reps/Duration 15x Comments min assist Therapeutic Exercises Supine Exercises SLR Reps/Minutes 10x SAQ Reps/Minutes 10x heel slide Reps/Minutes 10x quad sets Reps/Minutes 10x ankle pumps Reps/Minutes 10x Sitting Exercises LAQ Side bilateral Reps/Minutes 10x knee flexion Side right Equipment Used slider sheet Reps/Minutes 12x Standing Exercises HC stretch Reps/Minutes 2x heel raises Side bilateral Reps/Minutes 10x Gait Training Gait Activity 1 Description level surface Device Used FWW Level of Assistance CGA, cues Distance/Duration 30'x3 Treatment Focus increase knee flexion right, upright posture Self-Care/Home Management Treatment Education Patient Education Home Exercise Program Pain Management Other Education Phoned Dr Billings's office and left message regarding increased drainage on post-op dressing, redness and swelling of knee with concern for infection. No answer while patient in PT; instructed to stop by physician office for guidance. Patient and agreed. PT-OP-R Modalities Start: 03/15/19 12:50 Freq: Status: Active Protocol: Document 07/03/19 08:13 [facility] (Rec: 07/03/19 16:33 [facility] [id number]) Hot Pack/Cold Pack Treatment Cold Pack Location right knee Patient Position Hooklying Treatment Duration (minutes) 10 Patient Tolerance Good Comments elevated on bolster and wedge. PT-OP-T Assessment and Plan Start: 03/15/19 12:50 Freq: Status: Active Protocol: Document 07/03/19 08:13 [facility] (Rec: 07/03/19 08:51 [facility] [id number]) Physical Therapy Assessment Goals Five Impairment right LE swelling Short Term Goal (STG) Decrease right LE swelling by 50% STG Duration 2 wks Nursing Home Goal (LTG) Minimal right LE swelling LTG Duration 12 wks Four Impairment lower extremity functional scale 30% Short Term Goal (STG) Improve LEFS to at least 50% STG Duration 4 wks Oversize Load Pilot Escort Goal (LTG) Improve LEFS to at least 75% LTG Duration 12 wks 3 Impairment decreased right knee strength Short Term Goal (STG) right knee strength 3+/5 STG Duration 4 wks Nursing Home Goal (LTG) right knee strength 4+/5 to improve functional mobility LTG Duration 12 wks 2 Impairment decreased knee ROM Short Term Goal (STG) right knee AROM 5-110 STG Duration 4 wks Nursing Home Goal (LTG) right knee AROM 0-120 LTG Duration 12 wks 1 Impairment antalgic gait with device Short Term Goal (STG) Patient able to ambulate with minimal limp on level surface with appropriate assistive device STG Duration 4 wks Oversize Load Pilot Escort Goal (LTG) Patient able to ambulate without asstive device on level and with railing and alternating pattern on stairs without limp LTG Duration 12 wks Assessment Summary Assessment Patient presents with increased drainage on post-op dressing with increased redness and edema at knee. Patient temperature 98.4. Good tolerance for ther ex with AROM 12-95, PROM 5-100. Left message with Dr. Billings's office regarding patients increased drainage, redness, and edema. Physical Therapy Plan Frequency and Duration Frequency of Treatment 3x/Week Duration of Treatment 12 wks Plan of Care Start Date 07/02/19 Plan of Care End Date 10/02/19 Therapeutic Interventions Therapeutic Interventions Aquatic Therapy Gait Training Home Exercise Program Neuromuscular Re-education Self-Care/Home Management Soft Tissue Mobilization Taping Therapeutic Activities Therapeutic Exercises Modalities Cold Pack/Ice Massage Electric Stimulation Next Visit Focus/Plan Next Note Type Treatment Note Next Visit Plan Pending patient status after consult with physician continue TKA rehab; increase time on Biodex, add stair training on 4 stairs, stair lunge stretch, standing knee flexion. Increase gait training distance.
--- NOTE | 2019-07-05 12:03 | PT.OTN ---
Current Diagnoses Unilateral primary osteoarthritis, right knee (07/05/19) Difficulty in walking, not elsewhere classified (07/05/19) Weakness (07/05/19) Encounter for other orthopedic aftercare (07/05/19) Physical Therapy Treatment Note PT-OP-A Visit Information Start: 03/15/19 12:50 Freq: Status: Active Protocol: Document 07/05/19 09:44 SAK (Rec: 07/05/19 10:30 SAK [id number]) Out-Patient Physical Therapy Visit Information Visit Information Visit Type Treatment Note Visit Start Time 09:45 Visit Stop Time 10:41 Total Visit Minutes 56 Visit Number 4 Number of FUEL RETROFITTING TECHNICIAN Visits 0 Precautions Precautions HTN, osteopenia, hypothyroid, s/p right TKA 06/21/19 PT-OP-B Current Condition Start: 03/15/19 12:50 Freq: Status: Active Protocol: Document 07/02/19 09:30 SAK (Rec: 07/02/19 17:22 SAK [id number]) Current Condition History of Current Condition Onset Date 06/21/19 Current Complaints decrease right knee ROM, strength, mobility History of Current Condition Was scheduled for right TKA but came down with a cold and surgery was re- scheduled and performed . Hospital recovery complicated by nausea and states was limited in ability to participate in PT.Was discharged home yesterday. Hasn't had a chance to do her HEP yet. Treatment Goals Patient/Caregiver Goals Be able to take walks, work in garden, to household activities without pain. Prior Functional Status Baseline Function- ADL's Modified Independent Baseline Function- Mobility Modified Independent Baseline Function- Gait indep without device Baseline Function- Other Gardening, taking walks, housework. 5 stairs to enter, radha railings. 14 stairs to garage , 1 railing. Has raised toilet seat. No grab bars in shower. Plan is to go home at discharge. Current Functional Impairments (Reported) Functional Limitations- ADL's painful Functional Limitations- Mobility/Gait painful, uses FWW (height adjusted today) Functional Limitations- Recreation/ unable Hobbies Personal Factors Other Personal Factors That May Effect patient very anxious. Therapy/Recovery Supportive PT-OP-C Subjective Start: 03/15/19 12:50 Freq: Status: Active Protocol: Document 07/05/19 09:44 SAK (Rec: 07/05/19 10:30 [facility] [id number]) OP-PT Subjective Patient Comments Patient Comments Went to doctor's office 07/03/19 per PT recommendation, no problems noted by nurse. Sees surgeon tomorrow. Knee painful; has used Oxycontin a couple times including prior to PT today. Has been walking a lot in the house. Not using wheelchair anymore PT-OP-G Mobility & Gait Start: 03/15/19 12:50 Freq: Status: Active Protocol: Document 07/02/19 09:30 [facility] (Rec: 07/02/19 17:22 [facility] [id number]) OP Gait Assessment Gait Gait Assistance Required: Standby Assistance Distance (Feet) 60 Assistive Devices Assistive Device Front Wheeled Walker Orthotic/Prosthetic Devices or Brace: No Gait Deviations General Gait Pattern Decreased Stride Length Decreased Feet Clearance Factors Limiting Gait Function Factors Limiting Gait Function Limited Range of Motion Pain Comments Gait Comments Patient required moderate cues for gait sequencing and to allow right knee to bend normally with gait; tends to hold in extension Stair Climbing Evaluation Comments Stair Climbing Comments performed in hospital step-to pattern and at home. Not performed today in PT. PT-OP-K Range of Motion Start: 03/15/19 12:50 Freq: Status: Active Protocol: Document 07/02/19 09:30 [facility] (Rec: 07/02/19 17:22 [facility] [id number]) Knee Goniometric Range of Motion Knee Right Knee ROM WFL No Flexion Active (degrees) 75 Flexion Passive (degrees) 85 Extension Active (degrees) 12 Extension Passive (degrees) 8 Left Knee ROM WFL Yes Ankle and Foot Goniometric Range of Motion Ankle and Foot radha Dorsiflexion with Knee Flexed 5 Dorsiflexion with Knee Extended 0 PT-OP-M Strength Start: 03/15/19 12:50 Freq: Status: Active Protocol: Document 07/02/19 09:30 [facility] (Rec: 07/02/19 17:22 [facility] [id number]) Knee Strength Knee Manual Muscle Testing Right Reason Not Measured Orthopedic Precautions Pain Comments patient able to do independent SLR and SAQ though with extensor lag of appro 15 deg Left Flexion (S2) 4+ Good+ Extension (L3) 4+ Good+ Ankle/Foot Strength Ankle and Foot Manual Muscle Testing radha Dorsiflexion (L4) 4- Good- Plantarflexion (S1) 4- Good- PT-OP-Q Treatments Start: 03/15/19 12:50 Freq: Status: Active Protocol: Document 07/05/19 09:44 [facility] (Rec: 07/05/19 10:30 [facility] [id number]) Cardio Equipment Recumbent Stepper (Sci-Fit) Duration (Minutes) 7 Resistance 1 Seat Position 11 Other UE's and LE's Gym Equipment Shuttle Recovery Unilateral Squats Resistance 37 left 25 right Shuttle Recovery Platform Stable Reps/Time 10x Bilateral Squats Resistance 50 Shuttle Recovery Platform Stable Reps/Time 10x Therapeutic Exercises Supine Exercises gravity assisted knee flex Equipment Used slider sheet, laying on shuttle leg press Reps/Minutes 10x SAQ Reps/Minutes 10x quad sets Reps/Minutes 10x Comments towel roll under heel ankle pumps Reps/Minutes 10x Sitting Exercises LAQ Side bilateral Reps/Minutes 10x knee flexion Side right Equipment Used slider sheet Reps/Minutes 12x Standing Exercises toe raise Reps/Minutes 10x heel raise Reps/Minutes 10x stair lunge Reps/Minutes 10x step-touch Equipment Used 6 stair Reps/Minutes 10x Gait Training Gait Activity 1 Description level surface Device Used FWW Level of Assistance CGA, cues Distance/Duration 30'x3 Treatment Focus increase knee flexion right, upright posture PT-OP-R Modalities Start: 03/15/19 12:50 Freq: Status: Active Protocol: Document 07/05/19 09:44 [facility] (Rec: 07/05/19 12:03 [facility] [id number]) Hot Pack/Cold Pack Treatment Cold Pack Location right knee Patient Position Hooklying Treatment Duration (minutes) 10 Patient Tolerance Good Comments elevated on bolster and wedge. PT-OP-T Assessment and Plan Start: 03/15/19 12:50 Freq: Status: Active Protocol: Document 07/05/19 09:44 [facility] (Rec: 07/05/19 10:30 [facility] [id number]) Physical Therapy Assessment Goals Five Impairment right LE swelling Short Term Goal (STG) Decrease right LE swelling by 50% STG Duration 2 wks [facility] Goal (LTG) Minimal right LE swelling LTG Duration 12 wks Four Impairment lower extremity functional scale 30% Short Term Goal (STG) Improve LEFS to at least 50% STG Duration 4 wks Landscape Account Manager Goal (LTG) Improve LEFS to at least 75% LTG Duration 12 wks 3 Impairment decreased right knee strength Short Term Goal (STG) right knee strength 3+/5 STG Duration 4 wks [facility] Goal (LTG) right knee strength 4+/5 to improve functional mobility LTG Duration 12 wks 2 Impairment decreased knee ROM Short Term Goal (STG) right knee AROM 5-110 STG Duration 4 wks Landscape Account Manager Goal (LTG) right knee AROM 0-120 LTG Duration 12 wks 1 Impairment antalgic gait with device Short Term Goal (STG) Patient able to ambulate with minimal limp on level surface with appropriate assistive device STG Duration 4 wks Landscape Account Manager Goal (LTG) Patient able to ambulate without asstive device on level and with railing and alternating pattern on stairs without limp LTG Duration 12 wks
--- NOTE | 2019-07-10 16:40 | PT.OTN ---
Current Diagnoses Unilateral primary osteoarthritis, right knee (07/10/19) Difficulty in walking, not elsewhere classified (07/10/19) Weakness (07/10/19) Encounter for other orthopedic aftercare (07/10/19) Physical Therapy Treatment Note PT-OP-A Visit Information Start: 03/15/19 12:50 Freq: Status: Active Protocol: Document 07/10/19 09:44 SAK (Rec: 07/10/19 10:29 SAK [id number]) Out-Patient Physical Therapy Visit Information Visit Information Visit Type Treatment Note Visit Start Time 09:45 Visit Stop Time 10:40 Total Visit Minutes 56 Visit Number 4 Number of WOOD CUT ENGRAVER Visits 0 Evaluation Information Evaluation Date 03/16/19 Precautions Precautions HTN, osteopenia, hypothyroid, s/p right TKA 06/21/19 PT-OP-B Current Condition Start: 03/15/19 12:50 Freq: Status: Active Protocol: Document 07/02/19 09:30 SAK (Rec: 07/02/19 17:22 SAK [id number]) Current Condition History of Current Condition Onset Date 06/21/19 Current Complaints decrease right knee ROM, strength, mobility History of Current Condition Was scheduled for right TKA but came down with a cold and surgery was re- scheduled and performed . Hospital recovery complicated by nausea and states was limited in ability to participate in PT.Was discharged home yesterday. Hasn't had a chance to do her HEP yet. Treatment Goals Patient/Caregiver Goals Be able to take walks, work in garden, to household activities without pain. Prior Functional Status Baseline Function- ADL's Modified Independent Baseline Function- Mobility Modified Independent Baseline Function- Gait indep without device Baseline Function- Other Gardening, taking walks, housework. 5 stairs to enter, radha railings. 14 stairs to garage , 1 railing. Has raised toilet seat. No grab bars in shower. Plan is to go home at discharge. Current Functional Impairments (Reported) Functional Limitations- ADL's painful Functional Limitations- Mobility/Gait painful, uses FWW (height adjusted today) Functional Limitations- Recreation/ unable Hobbies Personal Factors Other Personal Factors That May Effect patient very anxious. Therapy/Recovery Supportive PT-OP-C Subjective Start: 03/15/19 12:50 Freq: Status: Active Protocol: Document 07/10/19 09:44 [facility] (Rec: 07/10/19 16:39 [facility] [id number]) OP-PT Subjective Patient Comments Patient Comments Trial IFES today due to persistent high pain level, use of Oxycontin at night, prior to PT today. PT-OP-G Mobility & Gait Start: 03/15/19 12:50 Freq: Status: Active Protocol: Document 07/02/19 09:30 [facility] (Rec: 07/02/19 17:22 [facility] [id number]) OP Gait Assessment Gait Gait Assistance Required: Standby Assistance Distance (Feet) 60 Assistive Devices Assistive Device Front Wheeled Walker Orthotic/Prosthetic Devices or Brace: No Gait Deviations General Gait Pattern Decreased Stride Length Decreased Feet Clearance Factors Limiting Gait Function Factors Limiting Gait Function Limited Range of Motion Pain Comments Gait Comments Patient required moderate cues for gait sequencing and to allow right knee to bend normally with gait; tends to hold in extension Stair Climbing Evaluation Comments Stair Climbing Comments performed in hospital step-to pattern and at home. Not performed today in PT. PT-OP-K Range of Motion Start: 03/15/19 12:50 Freq: Status: Active Protocol: Document 07/02/19 09:30 [facility] (Rec: 07/02/19 17:22 [facility] [id number]) Knee Goniometric Range of Motion Knee Right Knee ROM WFL No Flexion Active (degrees) 75 Flexion Passive (degrees) 85 Extension Active (degrees) 12 Extension Passive (degrees) 8 Left Knee ROM WFL Yes Ankle and Foot Goniometric Range of Motion Ankle and Foot radha Dorsiflexion with Knee Flexed 5 Dorsiflexion with Knee Extended 0 PT-OP-M Strength Start: 03/15/19 12:50 Freq: Status: Active Protocol: Document 07/02/19 09:30 [facility] (Rec: 07/02/19 17:22 [facility] [id number]) Knee Strength Knee Manual Muscle Testing Right Reason Not Measured Orthopedic Precautions Pain Comments patient able to do independent SLR and SAQ though with extensor lag of appro 15 deg Left Flexion (S2) 4+ Good+ Extension (L3) 4+ Good+ Ankle/Foot Strength Ankle and Foot Manual Muscle Testing radha Dorsiflexion (L4) 4- Good- Plantarflexion (S1) 4- Good- PT-OP-Q Treatments Start: 03/15/19 12:50 Freq: Status: Active Protocol: Document 07/10/19 09:44 SAK (Rec: 07/10/19 10:29 SAK [id number]) Cardio Equipment Recumbent Stepper (Sci-Fit) Duration (Minutes) 7 Resistance 1 Seat Position 11 Other UE's and LE's Therapeutic Exercises Sitting Exercises LAQ Side bilateral Reps/Minutes 10x knee flexion Side right Equipment Used slider sheet Reps/Minutes 12x Standing Exercises toe raise Reps/Minutes 10x heel raise Reps/Minutes 10x stair lunge Reps/Minutes 10x step-touch Equipment Used 6 stair Reps/Minutes 10x HC stretch Reps/Minutes 2x heel raises Side bilateral Reps/Minutes 10x PT-OP-R Modalities Start: 03/15/19 12:50 Freq: Status: Active Protocol: Document 07/10/19 09:44 [facility] (Rec: 07/10/19 16:39 SAK [id number]) Electric Stimulation Electric Stimulation Interferential Current (IFC) Body Location right knee Duration (Minutes) 12 Intensity 21 Target/Sweep Sweep High/Low High Patient Position Hooklying Combined With Heat/Cold Cold Pack PT-OP-T Assessment and Plan Start: 03/15/19 12:50 Freq: Status: Active Protocol: Document 07/10/19 09:44 [facility] (Rec: 07/10/19 10:29 [facility] [id number]) Physical Therapy Assessment Goals Five Impairment right LE swelling Short Term Goal (STG) Decrease right LE swelling by 50% STG Duration 2 wks Roof Truss Machine Tender Goal (LTG) Minimal right LE swelling LTG Duration 12 wks Four Impairment lower extremity functional scale 30% Short Term Goal (STG) Improve LEFS to at least 50% STG Duration 4 wks Roof Truss Machine Tender Goal (LTG) Improve LEFS to at least 75% LTG Duration 12 wks 3 Impairment decreased right knee strength Short Term Goal (STG) right knee strength 3+/5 STG Duration 4 wks Roof Truss Machine Tender Goal (LTG) right knee strength 4+/5 to improve functional mobility LTG Duration 12 wks 2 Impairment decreased knee ROM Short Term Goal (STG) right knee AROM 5-110 STG Duration 4 wks [facility] Goal (LTG) right knee AROM 0-120 LTG Duration 12 wks 1 Impairment antalgic gait with device Short Term Goal (STG) Patient able to ambulate with minimal limp on level surface with appropriate assistive device STG Duration 4 wks [facility] Goal (LTG) Patient able to ambulate without asstive device on level and with railing and alternating pattern on stairs without limp LTG Duration 12 wks Assessment Summary Assessment Patient exhibits high anxiety level, needs much encouragement and cues for exercise performance. PROM increased to 5-108 Physical Therapy Plan Frequency and Duration Frequency of Treatment 3x/Week Duration of Treatment 12 wks Plan of Care Start Date 07/02/19 Plan of Care End Date 10/02/19 Therapeutic Interventions Therapeutic Interventions Aquatic Therapy Gait Training Home Exercise Program Neuromuscular Re-education Self-Care/Home Management Soft Tissue Mobilization Taping Therapeutic Activities Therapeutic Exercises Modalities Cold Pack/Ice Massage Electric Stimulation Next Visit Focus/Plan Next Note Type Treatment Note Next Visit Plan Continue TKA rehab
--- NOTE | 2019-07-12 08:04 | PT-OP ANOTE ---
cancelled due to doctor's appointment
--- NOTE | 2019-07-20 14:32 | PT.OTN ---
Current Diagnoses Unilateral primary osteoarthritis, right knee (07/20/19) Difficulty in walking, not elsewhere classified (07/20/19) Weakness (07/20/19) Encounter for other orthopedic aftercare (07/20/19) Physical Therapy Treatment Note PT-OP-A Visit Information Start: 03/15/19 12:50 Freq: Status: Active Protocol: Document 07/20/19 13:32 LRN (Rec: 07/20/19 14:26 LRN [id number]) Out-Patient Physical Therapy Visit Information Visit Information Visit Type Treatment Note Visit Start Time 13:32 Visit Stop Time 14:30 Total Visit Minutes 58 Visit Number 6 Number of STONE CIRCULAR SAWYER Visits 0 Evaluation Information Evaluation Date 03/16/19 Precautions Precautions HTN, osteopenia, hypothyroid, s/p right TKA 06/21/19 PT-OP-B Current Condition Start: 03/15/19 12:50 Freq: Status: Active Protocol: Document 07/02/19 09:30 SAK (Rec: 07/02/19 17:22 SAK [id number]) Current Condition History of Current Condition Onset Date 06/21/19 Current Complaints decrease right knee ROM, strength, mobility History of Current Condition Was scheduled for right TKA but came down with a cold and surgery was re- scheduled and performed . Hospital recovery complicated by nausea and states was limited in ability to participate in PT.Was discharged home yesterday. Hasn't had a chance to do her HEP yet. Treatment Goals Patient/Caregiver Goals Be able to take walks, work in garden, to household activities without pain. Prior Functional Status Baseline Function- ADL's Modified Independent Baseline Function- Mobility Modified Independent Baseline Function- Gait indep without device Baseline Function- Other Gardening, taking walks, housework. 5 stairs to enter, radha railings. 14 stairs to garage , 1 railing. Has raised toilet seat. No grab bars in shower. Plan is to go home at discharge. Current Functional Impairments (Reported) Functional Limitations- ADL's painful Functional Limitations- Mobility/Gait painful, uses FWW (height adjusted today) Functional Limitations- Recreation/ unable Hobbies Personal Factors Other Personal Factors That May Effect patient very anxious. Therapy/Recovery Supportive PT-OP-C Subjective Start: 03/15/19 12:50 Freq: Status: Active Protocol: Document 07/20/19 13:32 LRN (Rec: 07/20/19 14:26 LRN [id number]) OP-PT Subjective Patient Comments Patient Comments Saw doctor 3 days ago and had stitches removed. PT-OP-G Mobility & Gait Start: 03/15/19 12:50 Freq: Status: Active Protocol: Document 07/02/19 09:30 [facility] (Rec: 07/02/19 17:22 [facility] [id number]) OP Gait Assessment Gait Gait Assistance Required: Standby Assistance Distance (Feet) 60 Assistive Devices Assistive Device Front Wheeled Walker Orthotic/Prosthetic Devices or Brace: No Gait Deviations General Gait Pattern Decreased Stride Length Decreased Feet Clearance Factors Limiting Gait Function Factors Limiting Gait Function Limited Range of Motion Pain Comments Gait Comments Patient required moderate cues for gait sequencing and to allow right knee to bend normally with gait; tends to hold in extension Stair Climbing Evaluation Comments Stair Climbing Comments performed in hospital step-to pattern and at home. Not performed today in PT. PT-OP-K Range of Motion Start: 03/15/19 12:50 Freq: Status: Active Protocol: Document 07/02/19 09:30 [facility] (Rec: 07/02/19 17:22 [facility] [id number]) Knee Goniometric Range of Motion Knee Right Knee ROM WFL No Flexion Active (degrees) 75 Flexion Passive (degrees) 85 Extension Active (degrees) 12 Extension Passive (degrees) 8 Left Knee ROM WFL Yes Ankle and Foot Goniometric Range of Motion Ankle and Foot radha Dorsiflexion with Knee Flexed 5 Dorsiflexion with Knee Extended 0 PT-OP-M Strength Start: 03/15/19 12:50 Freq: Status: Active Protocol: Document 07/02/19 09:30 [facility] (Rec: 07/02/19 17:22 [facility] [id number]) Knee Strength Knee Manual Muscle Testing Right Reason Not Measured Orthopedic Precautions Pain Comments patient able to do independent SLR and SAQ though with extensor lag of appro 15 deg Left Flexion (S2) 4+ Good+ Extension (L3) 4+ Good+ Ankle/Foot Strength Ankle and Foot Manual Muscle Testing radha Dorsiflexion (L4) 4- Good- Plantarflexion (S1) 4- Good- PT-OP-Q Treatments Start: 03/15/19 12:50 Freq: Status: Active Protocol: Document 07/20/19 13:32 LRN (Rec: 07/20/19 14:26 LRN [id number]) Cardio Equipment Recumbent Stepper (Sci-Fit) Duration (Minutes) 8 Resistance 1 Seat Position 12 Other Gr Back support, UE's and LE's Gym Equipment Shuttle Recovery Unilateral Squats Resistance 25# R, 37# L Shuttle Recovery Platform Stable Reps/Time 15x Bilateral Squats Resistance 50 Shuttle Recovery Platform Stable Reps/Time 10x Therapeutic Exercises Supine Exercises heel slide Reps/Minutes 15x Sitting Exercises LAQ Side bilateral Reps/Minutes 15x knee flexion Side right Equipment Used 1 strand lev2 T Band Reps/Minutes 15x Standing Exercises toe raise Reps/Minutes 15x heel raise Reps/Minutes 15x HC stretch Equipment Used MATTHEW Reps/Minutes 2x 1' Comments follow stretch with esequiel ankle DF x 10 Manual Therapy Treatment Soft Tissue Mobilization R knee Body Location R knee Mobilization Type Other Intensity/Depth Superficial Body Position Supine Comments Retrograde massage with LLE elevated on bolster. PT-OP-R Modalities Start: 03/15/19 12:50 Freq: Status: Active Protocol: Document 07/20/19 13:32 LRN (Rec: 07/20/19 14:26 LRN [id number]) Hot Pack/Cold Pack Treatment Cold Pack Location right knee cryocuff Treatment Duration (minutes) 10 Patient Tolerance Good Comments elevated trunk & LE elevated on bolster for edema. PT-OP-T Assessment and Plan Start: 03/15/19 12:50 Freq: Status: Active Protocol: Document 07/20/19 13:32 LRN (Rec: 07/20/19 14:26 LRN [id number]) Physical Therapy Assessment Assessment Summary Assessment Pt incision is in healing phase. Pt doesn't appear to be too concerned with knee; therefore shows less anxiety. Pt moves very slowly through treatment session. Physical Therapy Plan Frequency and Duration Frequency of Treatment 3x/Week Duration of Treatment 12 wks Plan of Care Start Date 07/02/19 Plan of Care End Date 10/02/19 Next Visit Focus/Plan Next Note Type Treatment Note Next Visit Plan Continue TKA rehab
--- NOTE | 2019-07-24 14:38 | PT.OTN ---
Current Diagnoses Unilateral primary osteoarthritis, right knee (07/24/19) Difficulty in walking, not elsewhere classified (07/24/19) Weakness (07/24/19) Encounter for other orthopedic aftercare (07/24/19) Physical Therapy Treatment Note PT-OP-A Visit Information Start: 03/15/19 12:50 Freq: Status: Active Protocol: Document 07/24/19 13:40 [facility] (Rec: 07/24/19 14:36 [facility] [id number]) Out-Patient Physical Therapy Visit Information Visit Information Visit Type Treatment Note Visit Start Time 13:50 Visit Stop Time 14:40 Total Visit Minutes 50 Visit Number 7 Number of EDGE BEADER Visits 0 PT-OP-B Current Condition Start: 03/15/19 12:50 Freq: Status: Active Protocol: Document 07/02/19 09:30 SAK (Rec: 07/02/19 17:22 SAK [id number]) Current Condition History of Current Condition Onset Date 06/21/19 Current Complaints decrease right knee ROM, strength, mobility History of Current Condition Was scheduled for right TKA but came down with a cold and surgery was re- scheduled and performed . Hospital recovery complicated by nausea and states was limited in ability to participate in PT.Was discharged home yesterday. Hasn't had a chance to do her HEP yet. Treatment Goals Patient/Caregiver Goals Be able to take walks, work in garden, to household activities without pain. Prior Functional Status Baseline Function- ADL's Modified Independent Baseline Function- Mobility Modified Independent Baseline Function- Gait indep without device Baseline Function- Other Gardening, taking walks, housework. 5 stairs to enter, radha railings. 14 stairs to garage , 1 railing. Has raised toilet seat. No grab bars in shower. Plan is to go home at discharge. Current Functional Impairments (Reported) Functional Limitations- ADL's painful Functional Limitations- Mobility/Gait painful, uses FWW (height adjusted today) Functional Limitations- Recreation/ unable Hobbies Personal Factors Other Personal Factors That May Effect patient very anxious. Therapy/Recovery Supportive PT-OP-C Subjective Start: 03/15/19 12:50 Freq: Status: Active Protocol: Document 07/24/19 13:40 [facility] (Rec: 07/24/19 14:36 [facility] [id number]) OP-PT Subjective Patient Comments Patient Comments Pt reports she has not done her exercises yet today. PT-OP-G Mobility & Gait Start: 03/15/19 12:50 Freq: Status: Active Protocol: Document 07/02/19 09:30 [facility] (Rec: 07/02/19 17:22 [facility] [id number]) OP Gait Assessment Gait Gait Assistance Required: Standby Assistance Distance (Feet) 60 Assistive Devices Assistive Device Front Wheeled Walker Orthotic/Prosthetic Devices or Brace: No Gait Deviations General Gait Pattern Decreased Stride Length Decreased Feet Clearance Factors Limiting Gait Function Factors Limiting Gait Function Limited Range of Motion Pain Comments Gait Comments Patient required moderate cues for gait sequencing and to allow right knee to bend normally with gait; tends to hold in extension Stair Climbing Evaluation Comments Stair Climbing Comments performed in hospital step-to pattern and at home. Not performed today in PT. PT-OP-K Range of Motion Start: 03/15/19 12:50 Freq: Status: Active Protocol: Document 07/02/19 09:30 [facility] (Rec: 07/02/19 17:22 [facility] [id number]) Knee Goniometric Range of Motion Knee Right Knee ROM WFL No Flexion Active (degrees) 75 Flexion Passive (degrees) 85 Extension Active (degrees) 12 Extension Passive (degrees) 8 Left Knee ROM WFL Yes Ankle and Foot Goniometric Range of Motion Ankle and Foot radha Dorsiflexion with Knee Flexed 5 Dorsiflexion with Knee Extended 0 PT-OP-M Strength Start: 03/15/19 12:50 Freq: Status: Active Protocol: Document 07/02/19 09:30 [facility] (Rec: 07/02/19 17:22 [facility] [id number]) Knee Strength Knee Manual Muscle Testing Right Reason Not Measured Orthopedic Precautions Pain Comments patient able to do independent SLR and SAQ though with extensor lag of appro 15 deg Left Flexion (S2) 4+ Good+ Extension (L3) 4+ Good+ Ankle/Foot Strength Ankle and Foot Manual Muscle Testing radha Dorsiflexion (L4) 4- Good- Plantarflexion (S1) 4- Good- PT-OP-Q Treatments Start: 03/15/19 12:50 Freq: Status: Active Protocol: Document 07/24/19 13:40 LR (Rec: 07/24/19 14:36 [facility] [id number]) Cardio Equipment Recumbent Stepper (Sci-Fit) Duration (Minutes) 6 Resistance 1 Seat Position 12 Other Gr Back support, UE's and LE's Therapeutic Exercises Standing Exercises standing Standing Exercise Name hip abd & ext Side bilateral Reps/Minutes 20 ea Gait Training Gait Activity 1 Comments with FWW working on dec UE use ; SPC working on sequencing with pt using cane in LUE. Manual Therapy Treatment Soft Tissue Mobilization HS Body Location R lat Mobilization Type Rolling Intensity/Depth Moderate Joint Mobilizations PF Joint R Direction sup, inf, med PT-OP-R Modalities Start: 03/15/19 12:50 Freq: Status: Active Protocol: Document 07/24/19 13:40 [facility] (Rec: 07/24/19 14:37 [facility] [id number]) Hot Pack/Cold Pack Treatment Cold Pack Location right knee Patient Position Hooklying Treatment Duration (minutes) 10 Patient Tolerance Good Comments elevated on bolster and wedge. PT-OP-T Assessment and Plan Start: 03/15/19 12:50 Freq: Status: Active Protocol: Document 07/24/19 13:40 [facility] (Rec: 07/24/19 14:36 [facility] [id number]) Physical Therapy Assessment Goals Five Impairment right LE swelling Short Term Goal (STG) Decrease right LE swelling by 50% STG Duration 2 wks Alf Goal (LTG) Minimal right LE swelling LTG Duration 12 wks Four Impairment lower extremity functional scale 30% Short Term Goal (STG) Improve LEFS to at least 50% STG Duration 4 wks Alf Goal (LTG) Improve LEFS to at least 75% LTG Duration 12 wks 3 Impairment decreased right knee strength Short Term Goal (STG) right knee strength 3+/5 STG Duration 4 wks Alf Goal (LTG) right knee strength 4+/5 to improve functional mobility LTG Duration 12 wks 2 Impairment decreased knee ROM Short Term Goal (STG) right knee AROM 5-110 STG Duration 4 wks Fishing Instructor Goal (LTG) right knee AROM 0-120 LTG Duration 12 wks 1 Impairment antalgic gait with device Short Term Goal (STG) Patient able to ambulate with minimal limp on level surface with appropriate assistive device STG Duration 4 wks Fishing Instructor Goal (LTG) Patient able to ambulate without asstive device on level and with railing and alternating pattern on stairs without limp LTG Duration 12 wks Assessment Summary Assessment Pt started session with 5-103 prior to manual and improved to 0-111 after manual treatment. She required max ceuing and CGA with cane and was instructed not to work with cane at home, only at therapy. She has L hip trendelenburg when ambulating. with cane. Pt would benfit from cont hip strengthening in order to stabilize knee. Physical Therapy Plan Frequency and Duration Frequency of Treatment 3x/Week Duration of Treatment 12 wks Plan of Care Start Date 07/02/19 Plan of Care End Date 10/02/19 Next Visit Focus/Plan Next Note Type Treatment Note Next Visit Plan Work on cane gait; work on standing strengthening for hips and knees
--- NOTE | 2019-07-26 11:44 | PT.OTN ---
Current Diagnoses Unilateral primary osteoarthritis, right knee (07/26/19) Difficulty in walking, not elsewhere classified (07/26/19) Weakness (07/26/19) Encounter for other orthopedic aftercare (07/26/19) Physical Therapy Treatment Note PT-OP-A Visit Information Start: 03/15/19 12:50 Freq: Status: Active Protocol: Document 07/26/19 09:45 AMB (Rec: 07/26/19 11:44 AMB [id number]) Out-Patient Physical Therapy Visit Information Visit Information Visit Type Treatment Note Visit Start Time 09:45 Visit Stop Time 10:35 Total Visit Minutes 50 Visit Number 8 Number of REGIONAL SALES LEADER Visits 0 PT-OP-B Current Condition Start: 03/15/19 12:50 Freq: Status: Active Protocol: Document 07/02/19 09:30 SAK (Rec: 07/02/19 17:22 SAK [id number]) Current Condition History of Current Condition Onset Date 06/21/19 Current Complaints decrease right knee ROM, strength, mobility History of Current Condition Was scheduled for right TKA but came down with a cold and surgery was re- scheduled and performed . Hospital recovery complicated by nausea and states was limited in ability to participate in PT.Was discharged home yesterday. Hasn't had a chance to do her HEP yet. Treatment Goals Patient/Caregiver Goals Be able to take walks, work in garden, to household activities without pain. Prior Functional Status Baseline Function- ADL's Modified Independent Baseline Function- Mobility Modified Independent Baseline Function- Gait indep without device Baseline Function- Other Gardening, taking walks, housework. 5 stairs to enter, radha railings. 14 stairs to garage , 1 railing. Has raised toilet seat. No grab bars in shower. Plan is to go home at discharge. Current Functional Impairments (Reported) Functional Limitations- ADL's painful Functional Limitations- Mobility/Gait painful, uses FWW (height adjusted today) Functional Limitations- Recreation/ unable Hobbies Personal Factors Other Personal Factors That May Effect patient very anxious. Therapy/Recovery Supportive PT-OP-C Subjective Start: 03/15/19 12:50 Freq: Status: Active Protocol: Document 07/26/19 09:45 AMB (Rec: 07/26/19 11:44 AMB [id number]) OP-PT Subjective Patient Comments Patient Comments Chetna reports she is having a difficult time sleeping. she doesn't want to take opiates but has been taking tylenol. PT-OP-G Mobility & Gait Start: 03/15/19 12:50 Freq: Status: Active Protocol: Document 07/02/19 09:30 [facility] (Rec: 07/02/19 17:22 [facility] [id number]) OP Gait Assessment Gait Gait Assistance Required: Standby Assistance Distance (Feet) 60 Assistive Devices Assistive Device Front Wheeled Walker Orthotic/Prosthetic Devices or Brace: No Gait Deviations General Gait Pattern Decreased Stride Length, Decreased Feet Clearance Factors Limiting Gait Function Factors Limiting Gait Function Limited Range of Motion,Pain Comments Gait Comments Patient required moderate cues for gait sequencing and to allow right knee to bend normally with gait; tends to hold in extension Stair Climbing Evaluation Comments Stair Climbing Comments performed in hospital step-to pattern and at home. Not performed today in PT. PT-OP-K Range of Motion Start: 03/15/19 12:50 Freq: Status: Active Protocol: Document 07/02/19 09:30 [facility] (Rec: 07/02/19 17:22 [facility] [id number]) Knee Goniometric Range of Motion Knee Right Knee ROM WFL No Flexion Active (degrees) 75 Flexion Passive (degrees) 85 Extension Active (degrees) 12 Extension Passive (degrees) 8 Left Knee ROM WFL Yes Ankle and Foot Goniometric Range of Motion Ankle and Foot radha Dorsiflexion with Knee Flexed 5 Dorsiflexion with Knee Extended 0 PT-OP-M Strength Start: 03/15/19 12:50 Freq: Status: Active Protocol: Document 07/02/19 09:30 [facility] (Rec: 07/02/19 17:22 [facility] [id number]) Knee Strength Knee Manual Muscle Testing Right Reason Not Measured Orthopedic Precautions,Pain Comments patient able to do independent SLR and SAQ though with extensor lag of appro 15 deg Left Flexion (S2) 4+ Good+ Extension (L3) 4+ Good+ Ankle/Foot Strength Ankle and Foot Manual Muscle Testing radha Dorsiflexion (L4) 4- Good- Plantarflexion (S1) 4- Good- PT-OP-Q Treatments Start: 03/15/19 12:50 Freq: Status: Active Protocol: Document 07/26/19 09:45 AMB (Rec: 07/26/19 11:44 AMB [id number]) Gym Equipment Shuttle Recovery Unilateral Squats Resistance 25# R, Shuttle Recovery Platform Stable Reps/Time 15x Bilateral Squats Resistance 50 Shuttle Recovery Platform Stable Reps/Time 20x Therapeutic Exercises Supine Exercises 1 Supine Exercise Name passive knee flexion and extension Reps/Minutes 10 Standing Exercises standing Standing Exercise Name hip abd & ext Side bilateral Reps/Minutes 3x4 toe raise Reps/Minutes 15x Gait Training Gait Activity 1 Distance/Duration 200' Comments with FWW working on dec UE use ; PT-OP-R Modalities Start: 03/15/19 12:50 Freq: Status: Active Protocol: Document 07/26/19 09:45 AMB (Rec: 07/26/19 11:44 AMB [email or web address]) Hot Pack/Cold Pack Treatment Cold Pack Location right knee Patient Position Hooklying Treatment Duration (minutes) 10 Patient Tolerance Good Comments elevated on bolster and wedge. PT-OP-T Assessment and Plan Start: 03/15/19 12:50 Freq: Status: Active Protocol: Document 07/26/19 09:45 AMB (Rec: 07/26/19 11:44 AMB [id number]) Physical Therapy Assessment Assessment Summary Assessment Pt was only able to tolerate a few repetitions of standing hip abduction. Focused on walking with less pressure on the walker, and even with that there was a trendelenburg gait pattern, so did not try cane training today. Physical Therapy Plan Next Visit Focus/Plan Next Note Type Treatment Note Next Visit Plan Work on cane gait; work on standing strengthening for hips and knees
--- NOTE | 2019-07-31 17:04 | PT.OTN ---
Current Diagnoses Unilateral primary osteoarthritis, right knee (07/31/19) Difficulty in walking, not elsewhere classified (07/31/19) Weakness (07/31/19) Encounter for other orthopedic aftercare (07/31/19) Physical Therapy Treatment Note PT-OP-A Visit Information Start: 03/15/19 12:50 Freq: Status: Active Protocol: Document 07/31/19 16:56 GGD (Rec: 07/31/19 17:04 GGD [email or web address]) Out-Patient Physical Therapy Visit Information Visit Information Visit Type Treatment Note Visit Start Time 15:15 Visit Stop Time 16:00 Total Visit Minutes 45 Visit Number 9 Number of DIRECTOR OF LAND ACQUISITION Visits 1 Evaluation Information Evaluation Date 03/16/19 PT-OP-B Current Condition Start: 03/15/19 12:50 Freq: Status: Active Protocol: Document 07/02/19 09:30 SAK (Rec: 07/02/19 17:22 SAK [id number]) Current Condition History of Current Condition Onset Date 06/21/19 Current Complaints decrease right knee ROM, strength, mobility History of Current Condition Was scheduled for right TKA but came down with a cold and surgery was re- scheduled and performed . Hospital recovery complicated by nausea and states was limited in ability to participate in PT.Was discharged home yesterday. Hasn't had a chance to do her HEP yet. Treatment Goals Patient/Caregiver Goals Be able to take walks, work in garden, to household activities without pain. Prior Functional Status Baseline Function- ADL's Modified Independent Baseline Function- Mobility Modified Independent Baseline Function- Gait indep without device Baseline Function- Other Gardening, taking walks, housework. 5 stairs to enter, radha railings. 14 stairs to garage , 1 railing. Has raised toilet seat. No grab bars in shower. Plan is to go home at discharge. Current Functional Impairments (Reported) Functional Limitations- ADL's painful Functional Limitations- Mobility/Gait painful, uses FWW (height adjusted today) Functional Limitations- Recreation/ unable Hobbies Personal Factors Other Personal Factors That May Effect patient very anxious. Therapy/Recovery Supportive PT-OP-C Subjective Start: 03/15/19 12:50 Freq: Status: Active Protocol: Document 07/31/19 16:56 GGD (Rec: 07/31/19 17:04 GGD [email or web address]) OP-PT Subjective Patient Comments Patient Comments Pt states she doing a little better. PT-OP-G Mobility & Gait Start: 03/15/19 12:50 Freq: Status: Active Protocol: Document 07/02/19 09:30 [facility] (Rec: 07/02/19 17:22 [facility] [id number]) OP Gait Assessment Gait Gait Assistance Required: Standby Assistance Distance (Feet) 60 Assistive Devices Assistive Device Front Wheeled Walker Orthotic/Prosthetic Devices or Brace: No Gait Deviations General Gait Pattern Decreased Stride Length, Decreased Feet Clearance Factors Limiting Gait Function Factors Limiting Gait Function Limited Range of Motion,Pain Comments Gait Comments Patient required moderate cues for gait sequencing and to allow right knee to bend normally with gait; tends to hold in extension Stair Climbing Evaluation Comments Stair Climbing Comments performed in hospital step-to pattern and at home. Not performed today in PT. PT-OP-K Range of Motion Start: 03/15/19 12:50 Freq: Status: Active Protocol: Document 07/02/19 09:30 [facility] (Rec: 07/02/19 17:22 [facility] [id number]) Knee Goniometric Range of Motion Knee Right Knee ROM WFL No Flexion Active (degrees) 75 Flexion Passive (degrees) 85 Extension Active (degrees) 12 Extension Passive (degrees) 8 Left Knee ROM WFL Yes Ankle and Foot Goniometric Range of Motion Ankle and Foot radha Dorsiflexion with Knee Flexed 5 Dorsiflexion with Knee Extended 0 PT-OP-M Strength Start: 03/15/19 12:50 Freq: Status: Active Protocol: Document 07/02/19 09:30 [facility] (Rec: 07/02/19 17:22 [facility] [id number]) Knee Strength Knee Manual Muscle Testing Right Reason Not Measured Orthopedic Precautions,Pain Comments patient able to do independent SLR and SAQ though with extensor lag of appro 15 deg Left Flexion (S2) 4+ Good+ Extension (L3) 4+ Good+ Ankle/Foot Strength Ankle and Foot Manual Muscle Testing radha Dorsiflexion (L4) 4- Good- Plantarflexion (S1) 4- Good- PT-OP-Q Treatments Start: 03/15/19 12:50 Freq: Status: Active Protocol: Document 07/31/19 16:56 GGD (Rec: 07/31/19 17:04 GGD [email or web address]) Cardio Equipment Recumbent Stepper (Sci-Fit) Duration (Minutes) 6 Resistance 1 Seat Position 12 Other Gr Back support, UE's and LE's Gym Equipment Shuttle Recovery Unilateral Squats Resistance 25# R, Shuttle Recovery Platform Stable Reps/Time 15x Bilateral Squats Resistance 67 Shuttle Recovery Platform Stable Reps/Time 20x Therapeutic Exercises Supine Exercises 1 Supine Exercise Name passive knee flexion and extension Reps/Minutes 10 Standing Exercises sit to stand Standing Exercise Name sit to stand from mat. Reps/Minutes 10 standing Standing Exercise Name hip abd & ext Side bilateral Reps/Minutes 3x4 Gait Training Gait Activity 1 Distance/Duration 200' Comments with FWW working on dec UE use ; trail of gait with SPC PT-OP-R Modalities Start: 03/15/19 12:50 Freq: Status: Active Protocol: Document 07/26/19 09:45 AMB (Rec: 07/26/19 11:44 AMB [email or web address]) Hot Pack/Cold Pack Treatment Cold Pack Location right knee Patient Position Hooklying Treatment Duration (minutes) 10 Patient Tolerance Good Comments elevated on bolster and wedge. PT-OP-T Assessment and Plan Start: 03/15/19 12:50 Freq: Status: Active Protocol: Document 07/31/19 16:56 GGD (Rec: 07/31/19 17:04 GGD [email or web address]) Physical Therapy Assessment Goals Five Impairment right LE swelling Short Term Goal (STG) Decrease right LE swelling by 50% STG Duration 2 wks Revenue Enforcement Collection Agent Goal (LTG) Minimal right LE swelling LTG Duration 12 wks Four Impairment lower extremity functional scale 30% Short Term Goal (STG) Improve LEFS to at least 50% STG Duration 4 wks Residential Goal (LTG) Improve LEFS to at least 75% LTG Duration 12 wks 3 Impairment decreased right knee strength Short Term Goal (STG) right knee strength 3+/5 STG Duration 4 wks Revenue Enforcement Collection Agent Goal (LTG) right knee strength 4+/5 to improve functional mobility LTG Duration 12 wks 2 Impairment decreased knee ROM Short Term Goal (STG) right knee AROM 5-110 STG Duration 4 wks Revenue Enforcement Collection Agent Goal (LTG) right knee AROM 0-120 LTG Duration 12 wks 1 Impairment antalgic gait with device Short Term Goal (STG) Patient able to ambulate with minimal limp on level surface with appropriate assistive device STG Duration 4 wks Revenue Enforcement Collection Agent Goal (LTG) Patient able to ambulate without asstive device on level and with railing and alternating pattern on stairs without limp LTG Duration 12 wks Assessment Summary Assessment Pt improving with strengthening. She unable sit to stand without UE support. Pt unable to sequence with SPC and need CGA to min A for balance. Physical Therapy Plan Frequency and Duration Frequency of Treatment 3x/Week Duration of Treatment 12 wks Plan of Care Start Date 07/02/19 Plan of Care End Date 10/02/19 Next Visit Focus/Plan Next Note Type Treatment Note Next Visit Plan Work on cane gait; work on standing strengthening for hips and knees
--- NOTE | 2019-08-02 09:40 | PT.OTN ---
Current Diagnoses Unilateral primary osteoarthritis, right knee (08/02/19) Difficulty in walking, not elsewhere classified (08/02/19) Weakness (08/02/19) Encounter for other orthopedic aftercare (08/02/19) Physical Therapy Treatment Note PT-OP-A Visit Information Start: 03/15/19 12:50 Freq: Status: Active Protocol: Document 08/02/19 08:15 AMB (Rec: 08/02/19 09:39 AMB [email or web address]) Out-Patient Physical Therapy Visit Information Visit Information Visit Type Progress Note Visit Start Time 08:15 Visit Stop Time 09:10 Total Visit Minutes 55 Visit Number 10 Number of INTERNAL AUDIT SENIOR MANAGER Visits 0 PT-OP-B Current Condition Start: 03/15/19 12:50 Freq: Status: Active Protocol: Document 07/02/19 09:30 SAK (Rec: 07/02/19 17:22 SAK [id number]) Current Condition History of Current Condition Onset Date 06/21/19 Current Complaints decrease right knee ROM, strength, mobility History of Current Condition Was scheduled for right TKA but came down with a cold and surgery was re- scheduled and performed . Hospital recovery complicated by nausea and states was limited in ability to participate in PT.Was discharged home yesterday. Hasn't had a chance to do her HEP yet. Treatment Goals Patient/Caregiver Goals Be able to take walks, work in garden, to household activities without pain. Prior Functional Status Baseline Function- ADL's Modified Independent Baseline Function- Mobility Modified Independent Baseline Function- Gait indep without device Baseline Function- Other Gardening, taking walks, housework. 5 stairs to enter, radha railings. 14 stairs to garage , 1 railing. Has raised toilet seat. No grab bars in shower. Plan is to go home at discharge. Current Functional Impairments (Reported) Functional Limitations- ADL's painful Functional Limitations- Mobility/Gait painful, uses FWW (height adjusted today) Functional Limitations- Recreation/ unable Hobbies Personal Factors Other Personal Factors That May Effect patient very anxious. Therapy/Recovery Supportive PT-OP-C Subjective Start: 03/15/19 12:50 Freq: Status: Active Protocol: Document 08/02/19 08:15 AMB (Rec: 08/02/19 09:39 AMB [email or web address]) OP-PT Subjective Patient Comments Patient Comments Pt states she is doing HEP 2x/ day. Sees ortho surgeon in 2 weeks. PT-OP-G Mobility & Gait Start: 03/15/19 12:50 Freq: Status: Active Protocol: Document 07/02/19 09:30 [facility] (Rec: 07/02/19 17:22 [facility] [id number]) OP Gait Assessment Gait Gait Assistance Required: Standby Assistance Distance (Feet) 60 Assistive Devices Assistive Device Front Wheeled Walker Orthotic/Prosthetic Devices or Brace: No Gait Deviations General Gait Pattern Decreased Stride Length, Decreased Feet Clearance Factors Limiting Gait Function Factors Limiting Gait Function Limited Range of Motion,Pain Comments Gait Comments Patient required moderate cues for gait sequencing and to allow right knee to bend normally with gait; tends to hold in extension Stair Climbing Evaluation Comments Stair Climbing Comments performed in hospital step-to pattern and at home. Not performed today in PT. PT-OP-K Range of Motion Start: 03/15/19 12:50 Freq: Status: Active Protocol: Document 07/02/19 09:30 [facility] (Rec: 07/02/19 17:22 [facility] [id number]) Knee Goniometric Range of Motion Knee Right Knee ROM WFL No Flexion Active (degrees) 75 Flexion Passive (degrees) 85 Extension Active (degrees) 12 Extension Passive (degrees) 8 Left Knee ROM WFL Yes Ankle and Foot Goniometric Range of Motion Ankle and Foot radha Dorsiflexion with Knee Flexed 5 Dorsiflexion with Knee Extended 0 PT-OP-M Strength Start: 03/15/19 12:50 Freq: Status: Active Protocol: Document 07/02/19 09:30 [facility] (Rec: 07/02/19 17:22 [facility] [id number]) Knee Strength Knee Manual Muscle Testing Right Reason Not Measured Orthopedic Precautions,Pain Comments patient able to do independent SLR and SAQ though with extensor lag of appro 15 deg Left Flexion (S2) 4+ Good+ Extension (L3) 4+ Good+ Ankle/Foot Strength Ankle and Foot Manual Muscle Testing radha Dorsiflexion (L4) 4- Good- Plantarflexion (S1) 4- Good- PT-OP-Q Treatments Start: 03/15/19 12:50 Freq: Status: Active Protocol: Document 08/02/19 08:15 AMB (Rec: 08/02/19 09:39 AMB [email or web address]) Cardio Equipment Recumbent Stepper (Sci-Fit) Duration (Minutes) 6 Resistance 2 Seat Position 12 Other Gr Back support, UE's and LE's Therapeutic Exercises Supine Exercises 2 Supine Exercise Name partial bridge Reps/Minutes 2x10 Comments 55cm ball under feet 1 Supine Exercise Name passive knee flexion and extension Reps/Minutes 10 SLR Reps/Minutes 2x10 quad sets Reps/Minutes 10x Comments towel roll under heel Standing Exercises 1 Standing Exercise Name sidestepping with mini squat Reps/Minutes 8 feetx2 sit to stand Standing Exercise Name sit to stand at rail Reps/Minutes 10 Comments chair behind standing Standing Exercise Name hip abd & ext Side bilateral Reps/Minutes 4x5 Manual Therapy Treatment Joint Mobilizations 1 Joint tibiofemoral Direction AP/PA with flexion/extension PT-OP-R Modalities Start: 03/15/19 12:50 Freq: Status: Active Protocol: Document 08/02/19 08:15 AMB (Rec: 08/02/19 09:40 AMB [email or web address]) Hot Pack/Cold Pack Treatment Cold Pack Location right knee Patient Position Hooklying Treatment Duration (minutes) 10 Patient Tolerance Good Comments elevated on bolster and wedge. PT-OP-T Assessment and Plan Start: 03/15/19 12:50 Freq: Status: Active Protocol: Document 08/02/19 08:15 AMB (Rec: 08/02/19 09:39 AMB [email or web address]) Physical Therapy Assessment Goals Five Impairment right LE swelling Short Term Goal (STG) Decrease right LE swelling by 50% STG Duration [employer] Suspension Coordinator Goal (LTG) Minimal right LE swelling LTG Duration 12 wks Four Impairment lower extremity functional scale 30% Short Term Goal (STG) Improve LEFS to at least 50% STG Duration 4 wks Mcc Goal (LTG) Improve LEFS to at least 75% LTG Duration 12 wks 3 Impairment decreased right knee strength Short Term Goal (STG) right knee strength 3+/5 STG Duration [employer] In [employer] Suspension Coordinator Goal (LTG) right knee strength 4+/5 to improve functional mobility LTG Duration 12 wks 2 Impairment decreased knee ROM Short Term Goal (STG) right knee AROM 5-110 STG Duration MET Mcc Goal (LTG) right knee AROM 0-120 LTG Duration 12 wks 1 Impairment antalgic gait with device Short Term Goal (STG) Patient able to ambulate with minimal limp on level surface with appropriate assistive device STG Duration 4 wks Mcc Goal (LTG) Patient able to ambulate without asstive device on level and with railing and alternating pattern on stairs without limp LTG Duration 12 wks Assessment Summary Assessment Pt's ROM and strength are improving well, able to tolerate more repetitions of standing exercises today, but continues to have trendelenburg gait even when not putting much weight through FWW. Physical Therapy Plan Next Visit Focus/Plan Next Note Type Treatment Note Next Visit Plan Work on cane gait; work on standing strengthening for hips and knees
--- NOTE | 2019-08-06 15:57 | PT.OTN ---
Current Diagnoses Unilateral primary osteoarthritis, right knee (08/06/19) Difficulty in walking, not elsewhere classified (08/06/19) Weakness (08/06/19) Encounter for other orthopedic aftercare (08/06/19) Physical Therapy Treatment Note PT-OP-A Visit Information Start: 03/15/19 12:50 Freq: Status: Active Protocol: Document 08/06/19 13:00 AMB (Rec: 08/06/19 14:22 AMB [id number]) Out-Patient Physical Therapy Visit Information Visit Information Visit Type Treatment Note Visit Start Time 13:00 Visit Stop Time 13:45 Total Visit Minutes 45 Visit Number 11 PT-OP-B Current Condition Start: 03/15/19 12:50 Freq: Status: Active Protocol: Document 07/02/19 09:30 SAK (Rec: 07/02/19 17:22 SAK [id number]) Current Condition History of Current Condition Onset Date 06/21/19 Current Complaints decrease right knee ROM, strength, mobility History of Current Condition Was scheduled for right TKA but came down with a cold and surgery was re- scheduled and performed . Hospital recovery complicated by nausea and states was limited in ability to participate in PT.Was discharged home yesterday. Hasn't had a chance to do her HEP yet. Treatment Goals Patient/Caregiver Goals Be able to take walks, work in garden, to household activities without pain. Prior Functional Status Baseline Function- ADL's Modified Independent Baseline Function- Mobility Modified Independent Baseline Function- Gait indep without device Baseline Function- Other Gardening, taking walks, housework. 5 stairs to enter, radha railings. 14 stairs to garage , 1 railing. Has raised toilet seat. No grab bars in shower. Plan is to go home at discharge. Current Functional Impairments (Reported) Functional Limitations- ADL's painful Functional Limitations- Mobility/Gait painful, uses FWW (height adjusted today) Functional Limitations- Recreation/ unable Hobbies Personal Factors Other Personal Factors That May Effect patient very anxious. Therapy/Recovery Supportive PT-OP-C Subjective Start: 03/15/19 12:50 Freq: Status: Active Protocol: Document 08/06/19 13:00 AMB (Rec: 08/06/19 14:22 AMB [id number]) OP-PT Subjective Patient Comments Patient Comments Pt at the end of her appointment stated that she, for the last two weeks has become lightheaded when rolling over in bed. She also states she has not taken her blood pressure medication today. PT-OP-G Mobility & Gait Start: 03/15/19 12:50 Freq: Status: Active Protocol: Document 07/02/19 09:30 [facility] (Rec: 07/02/19 17:22 [facility] [id number]) OP Gait Assessment Gait Gait Assistance Required: Standby Assistance Distance (Feet) 60 Assistive Devices Assistive Device Front Wheeled Walker Orthotic/Prosthetic Devices or Brace: No Gait Deviations General Gait Pattern Decreased Stride Length, Decreased Feet Clearance Factors Limiting Gait Function Factors Limiting Gait Function Limited Range of Motion,Pain Comments Gait Comments Patient required moderate cues for gait sequencing and to allow right knee to bend normally with gait; tends to hold in extension Stair Climbing Evaluation Comments Stair Climbing Comments performed in hospital step-to pattern and at home. Not performed today in PT. PT-OP-K Range of Motion Start: 03/15/19 12:50 Freq: Status: Active Protocol: Document 07/02/19 09:30 [facility] (Rec: 07/02/19 17:22 [facility] [id number]) Knee Goniometric Range of Motion Knee Right Knee ROM WFL No Flexion Active (degrees) 75 Flexion Passive (degrees) 85 Extension Active (degrees) 12 Extension Passive (degrees) 8 Left Knee ROM WFL Yes Ankle and Foot Goniometric Range of Motion Ankle and Foot radha Dorsiflexion with Knee Flexed 5 Dorsiflexion with Knee Extended 0 PT-OP-M Strength Start: 03/15/19 12:50 Freq: Status: Active Protocol: Document 07/02/19 09:30 [facility] (Rec: 07/02/19 17:22 [facility] [id number]) Knee Strength Knee Manual Muscle Testing Right Reason Not Measured Orthopedic Precautions,Pain Comments patient able to do independent SLR and SAQ though with extensor lag of appro 15 deg Left Flexion (S2) 4+ Good+ Extension (L3) 4+ Good+ Ankle/Foot Strength Ankle and Foot Manual Muscle Testing radha Dorsiflexion (L4) 4- Good- Plantarflexion (S1) 4- Good- PT-OP-Q Treatments Start: 03/15/19 12:50 Freq: Status: Active Protocol: Document 08/06/19 13:00 AMB (Rec: 08/06/19 15:54 AMB [email or web address]) Cardio Equipment Recumbent Bicycle Duration (Minutes) 5 Resistance 2 Other difficult due to foot falling of pedal Gym Equipment Shuttle Recovery Unilateral Squats Resistance 37# R, Shuttle Recovery Platform Stable Reps/Time 15x Bilateral Squats Resistance 67 Shuttle Recovery Platform Stable Reps/Time 20x Therapeutic Exercises Supine Exercises SLR Reps/Minutes 2x10 Comments fatigued quickly Standing Exercises 1 Standing Exercise Name sidestepping with mini squat Reps/Minutes 8 feetx2 sit to stand Standing Exercise Name sit to stand at rail Reps/Minutes 10 Comments chair behind standing Standing Exercise Name hip abd & ext Side bilateral Reps/Minutes 2x10 Gait Training Gait Activity 1 Description SPC Level of Assistance heavy verbal cues, CGA Surface smooth, flat Distance/Duration 40'x5 Comments pt tends to avoid knee flexion in swing due to habit prior to surgery, needed cues for cane placement, timing. PT-OP-R Modalities Start: 03/15/19 12:50 Freq: Status: Active Protocol: Document 08/06/19 13:00 AMB (Rec: 08/06/19 15:55 AMB [email or web address]) Hot Pack/Cold Pack Treatment Cold Pack Patient Tolerance Good PT-OP-T Assessment and Plan Start: 03/15/19 12:50 Freq: Status: Active Protocol: Document 08/06/19 13:00 AMB (Rec: 08/06/19 15:38 AMB [email or web address]) Physical Therapy Assessment Assessment Summary Assessment Did not have time to further evaluate pt's lightheadedness, but pt does report it is brief with rolling over,and feels like things are moving . Would recommend following up and if sx continue encourage pt to follow up with PCP for possible rule in/out of BPPV. Physical Therapy Plan Next Visit Focus/Plan Next Note Type Treatment Note Next Visit Plan Follow up on lightheaded sx. Continue to stabilize in standing, progress gait.
--- NOTE | 2019-08-08 16:39 | PT.OTN ---
Current Diagnoses Unilateral primary osteoarthritis, right knee (08/08/19) Difficulty in walking, not elsewhere classified (08/08/19) Weakness (08/08/19) Encounter for other orthopedic aftercare (08/08/19) Physical Therapy Treatment Note PT-OP-A Visit Information Start: 03/15/19 12:50 Freq: Status: Active Protocol: Document 08/08/19 15:16 SAK (Rec: 08/08/19 15:25 SAK [id number]) Out-Patient Physical Therapy Visit Information Visit Information Visit Type Treatment Note Visit Start Time 15:15 Visit Stop Time 16:07 Total Visit Minutes 57 Visit Number 11 Number of OIL FIELD EQUIPMENT MECHANIC SUPERVISOR Visits 0 PT-OP-B Current Condition Start: 03/15/19 12:50 Freq: Status: Active Protocol: Document 07/02/19 09:30 SAK (Rec: 07/02/19 17:22 SAK [id number]) Current Condition History of Current Condition Onset Date 06/21/19 Current Complaints decrease right knee ROM, strength, mobility History of Current Condition Was scheduled for right TKA but came down with a cold and surgery was re- scheduled and performed . Hospital recovery complicated by nausea and states was limited in ability to participate in PT.Was discharged home yesterday. Hasn't had a chance to do her HEP yet. Treatment Goals Patient/Caregiver Goals Be able to take walks, work in garden, to household activities without pain. Prior Functional Status Baseline Function- ADL's Modified Independent Baseline Function- Mobility Modified Independent Baseline Function- Gait indep without device Baseline Function- Other Gardening, taking walks, housework. 5 stairs to enter, radha railings. 14 stairs to garage , 1 railing. Has raised toilet seat. No grab bars in shower. Plan is to go home at discharge. Current Functional Impairments (Reported) Functional Limitations- ADL's painful Functional Limitations- Mobility/Gait painful, uses FWW (height adjusted today) Functional Limitations- Recreation/ unable Hobbies Personal Factors Other Personal Factors That May Effect patient very anxious. Therapy/Recovery Supportive PT-OP-C Subjective Start: 03/15/19 12:50 Freq: Status: Active Protocol: Document 08/08/19 15:16 SAK (Rec: 08/08/19 15:25 SAK [id number]) OP-PT Subjective Patient Comments Patient Comments Sees her surgeon 08/13/19 for follow-up. Reports occasional dizziness, not all the time. States she feels she is getting stronger, didn't feel steady using straight cane last session. PT-OP-G Mobility & Gait Start: 03/15/19 12:50 Freq: Status: Active Protocol: Document 07/02/19 09:30 [facility] (Rec: 07/02/19 17:22 [facility] [id number]) OP Gait Assessment Gait Gait Assistance Required: Standby Assistance Distance (Feet) 60 Assistive Devices Assistive Device Front Wheeled Walker Orthotic/Prosthetic Devices or Brace: No Gait Deviations General Gait Pattern Decreased Stride Length, Decreased Feet Clearance Factors Limiting Gait Function Factors Limiting Gait Function Limited Range of Motion,Pain Comments Gait Comments Patient required moderate cues for gait sequencing and to allow right knee to bend normally with gait; tends to hold in extension Stair Climbing Evaluation Comments Stair Climbing Comments performed in hospital step-to pattern and at home. Not performed today in PT. PT-OP-K Range of Motion Start: 03/15/19 12:50 Freq: Status: Active Protocol: Document 07/02/19 09:30 [facility] (Rec: 07/02/19 17:22 [facility] [id number]) Knee Goniometric Range of Motion Knee Right Knee ROM WFL No Flexion Active (degrees) 75 Flexion Passive (degrees) 85 Extension Active (degrees) 12 Extension Passive (degrees) 8 Left Knee ROM WFL Yes Ankle and Foot Goniometric Range of Motion Ankle and Foot radha Dorsiflexion with Knee Flexed 5 Dorsiflexion with Knee Extended 0 PT-OP-M Strength Start: 03/15/19 12:50 Freq: Status: Active Protocol: Document 07/02/19 09:30 [facility] (Rec: 07/02/19 17:22 [facility] [id number]) Knee Strength Knee Manual Muscle Testing Right Reason Not Measured Orthopedic Precautions,Pain Comments patient able to do independent SLR and SAQ though with extensor lag of appro 15 deg Left Flexion (S2) 4+ Good+ Extension (L3) 4+ Good+ Ankle/Foot Strength Ankle and Foot Manual Muscle Testing radha Dorsiflexion (L4) 4- Good- Plantarflexion (S1) 4- Good- PT-OP-Q Treatments Start: 03/15/19 12:50 Freq: Status: Active Protocol: Document 08/08/19 15:16 [facility] (Rec: 08/08/19 15:25 [facility] [id number]) Cardio Equipment Recumbent Bicycle Duration (Minutes) 5 Resistance 2 Other difficult due to foot falling of pedal Gym Equipment Shuttle Recovery Unilateral Squats Resistance 37# R, Shuttle Recovery Platform Stable Reps/Time 15x Bilateral Squats Resistance 75# Shuttle Recovery Platform Stable Reps/Time 20x Therapeutic Ball supine knee flexion Exercise Details 55 CM therapy ball under right foot Reps/Duration 15x Comments min assist Therapeutic Exercises Supine Exercises gravity assisted knee flex Equipment Used slider sheet, laying on shuttle leg press Reps/Minutes 10x SLR Reps/Minutes 2x10 SAQ Reps/Minutes 10x quad sets Reps/Minutes 10x Comments towel roll under heel Sitting Exercises LAQ Side bilateral Reps/Minutes 15x knee flexion Side right Equipment Used L2 TB Reps/Minutes 15x Standing Exercises 1 Standing Exercise Name sidestepping Equipment Used parallel bars Reps/Minutes 8 feetx2 standing Standing Exercise Name hip abd & ext Side bilateral Reps/Minutes 2x10 toe raise Reps/Minutes 15x Gait Training Gait Activity 1 Description SPC Level of Assistance heavy verbal cues, CGA Surface smooth, flat Distance/Duration 40'x5 Comments pt tends to avoid knee flexion in swing due to habit prior to surgery, needed cues for cane placement, timing. Manual Therapy Treatment Soft Tissue Mobilization R knee Body Location R quads and superior aspect of scar Mobilization Type Rolling,Strumming Intensity/Depth Moderate Joint Mobilizations PF Joint R Direction sup, inf, med Grade III PT-OP-R Modalities Start: 03/15/19 12:50 Freq: Status: Active Protocol: Document 08/08/19 15:16 [facility] (Rec: 08/08/19 15:25 [facility] [id number]) Electric Stimulation Electric Stimulation Interferential Current (IFC) Body Location right knee Duration (Minutes) 12 Intensity 21 Target/Sweep Sweep High/Low High Patient Position Hooklying Combined With Heat/Cold Cold Pack PT-OP-T Assessment and Plan Start: 03/15/19 12:50 Freq: Status: Active Protocol: Document 08/08/19 15:16 [facility] (Rec: 08/08/19 15:25 [facility] [id number]) Physical Therapy Assessment Goals Five Impairment right LE swelling Short Term Goal (STG) Decrease right LE swelling by 50% STG Duration MET Sign Out Clerk Goal (LTG) Minimal right LE swelling LTG Duration 12 wks Four Impairment lower extremity functional scale 30% Short Term Goal (STG) Improve LEFS to at least 50% STG Duration 4 wks Sign Out Clerk Goal (LTG) Improve LEFS to at least 75% LTG Duration 12 wks 3 Impairment decreased right knee strength Short Term Goal (STG) right knee strength 3+/5 STG Duration MET Care Home Goal (LTG) right knee strength 4+/5 to improve functional mobility LTG Duration 12 wks 2 Impairment decreased knee ROM Short Term Goal (STG) right knee AROM 5-110 STG Duration MET Sign Out Clerk Goal (LTG) right knee AROM 0-120 LTG Duration 12 wks 1 Impairment antalgic gait with device Short Term Goal (STG) Patient able to ambulate with minimal limp on level surface with appropriate assistive device STG Duration 4 wks Care Home Goal (LTG) Patient able to ambulate without asstive device on level and with railing and alternating pattern on stairs without limp LTG Duration 12 wks Assessment Summary Assessment Patient has significant Trendelenberg on left with gait. Needs constant cues and CGA for gait with quad cane for safety and sequencing.
--- NOTE | 2019-08-15 16:33 | PT.OTN ---
Current Diagnoses Unilateral primary osteoarthritis, right knee (08/15/19) Difficulty in walking, not elsewhere classified (08/15/19) Weakness (08/15/19) Encounter for other orthopedic aftercare (08/15/19) Physical Therapy Treatment Note PT-OP-A Visit Information Start: 03/15/19 12:50 Freq: Status: Active Protocol: Document 08/15/19 09:00 LJ (Rec: 08/15/19 16:33 LJ [id number]) Out-Patient Physical Therapy Visit Information Visit Information Visit Type Treatment Note Visit Start Time 09:00 Visit Stop Time 09:46 Total Visit Minutes 58 Visit Number 12 Number of PARIMUTUEL CLERK Visits 1 PT-OP-B Current Condition Start: 03/15/19 12:50 Freq: Status: Active Protocol: Document 07/02/19 09:30 SAK (Rec: 07/02/19 17:22 SAK [id number]) Current Condition History of Current Condition Onset Date 06/21/19 Current Complaints decrease right knee ROM, strength, mobility History of Current Condition Was scheduled for right TKA but came down with a cold and surgery was re- scheduled and performed . Hospital recovery complicated by nausea and states was limited in ability to participate in PT.Was discharged home yesterday. Hasn't had a chance to do her HEP yet. Treatment Goals Patient/Caregiver Goals Be able to take walks, work in garden, to household activities without pain. Prior Functional Status Baseline Function- ADL's Modified Independent Baseline Function- Mobility Modified Independent Baseline Function- Gait indep without device Baseline Function- Other Gardening, taking walks, housework. 5 stairs to enter, radha railings. 14 stairs to garage , 1 railing. Has raised toilet seat. No grab bars in shower. Plan is to go home at discharge. Current Functional Impairments (Reported) Functional Limitations- ADL's painful Functional Limitations- Mobility/Gait painful, uses FWW (height adjusted today) Functional Limitations- Recreation/ unable Hobbies Personal Factors Other Personal Factors That May Effect patient very anxious. Therapy/Recovery Supportive PT-OP-C Subjective Start: 03/15/19 12:50 Freq: Status: Active Protocol: Document 08/15/19 09:00 LJ (Rec: 08/15/19 16:33 LJ [id number]) OP-PT Subjective Patient Comments Patient Comments Pt uses FWW at home bc she doesn't feel safe with SPC yet . States she spoke to her doctor and he tells her that the scar is healing well. She would like to get into the pool as soon as the doctor says she can. PT-OP-G Mobility & Gait Start: 03/15/19 12:50 Freq: Status: Active Protocol: Document 07/02/19 09:30 [facility] (Rec: 07/02/19 17:22 [facility] [id number]) OP Gait Assessment Gait Gait Assistance Required: Standby Assistance Distance (Feet) 60 Assistive Devices Assistive Device Front Wheeled Walker Orthotic/Prosthetic Devices or Brace: No Gait Deviations General Gait Pattern Decreased Stride Length, Decreased Feet Clearance Factors Limiting Gait Function Factors Limiting Gait Function Limited Range of Motion,Pain Comments Gait Comments Patient required moderate cues for gait sequencing and to allow right knee to bend normally with gait; tends to hold in extension Stair Climbing Evaluation Comments Stair Climbing Comments performed in hospital step-to pattern and at home. Not performed today in PT. PT-OP-K Range of Motion Start: 03/15/19 12:50 Freq: Status: Active Protocol: Document 07/02/19 09:30 [facility] (Rec: 07/02/19 17:22 [facility] [id number]) Knee Goniometric Range of Motion Knee Right Knee ROM WFL No Flexion Active (degrees) 75 Flexion Passive (degrees) 85 Extension Active (degrees) 12 Extension Passive (degrees) 8 Left Knee ROM WFL Yes Ankle and Foot Goniometric Range of Motion Ankle and Foot radha Dorsiflexion with Knee Flexed 5 Dorsiflexion with Knee Extended 0 PT-OP-M Strength Start: 03/15/19 12:50 Freq: Status: Active Protocol: Document 07/02/19 09:30 [facility] (Rec: 07/02/19 17:22 [facility] [id number]) Knee Strength Knee Manual Muscle Testing Right Reason Not Measured Orthopedic Precautions,Pain Comments patient able to do independent SLR and SAQ though with extensor lag of appro 15 deg Left Flexion (S2) 4+ Good+ Extension (L3) 4+ Good+ Ankle/Foot Strength Ankle and Foot Manual Muscle Testing radha Dorsiflexion (L4) 4- Good- Plantarflexion (S1) 4- Good- PT-OP-Q Treatments Start: 03/15/19 12:50 Freq: Status: Active Protocol: Document 08/15/19 09:00 LJ (Rec: 08/15/19 16:33 LJ [id number]) Cardio Equipment Recumbent Bicycle Duration (Minutes) 8 Resistance 2 Other removed shoes and her feet stayed on pedal better Gym Equipment Shuttle Recovery Unilateral Squats Resistance 37# R, Shuttle Recovery Platform Stable Reps/Time 15x Bilateral Squats Resistance 75# Shuttle Recovery Platform Stable Reps/Time 20x Therapeutic Ball supine knee flexion Exercise Details 55 CM therapy ball under right foot Reps/Duration 15x Comments min assist Therapeutic Exercises Supine Exercises gravity assisted knee flex Equipment Used slider sheet, laying on shuttle leg press Reps/Minutes 10x SLR Reps/Minutes 2x10 Comments advised abdominal bracing with exercise SAQ Reps/Minutes 10x quad sets Reps/Minutes 10x Comments towel roll under heel Sitting Exercises LAQ Side bilateral Reps/Minutes 15x knee flexion Side right Equipment Used L2 TB Reps/Minutes 15x Standing Exercises 1 Standing Exercise Name sidestepping Equipment Used parallel bars Reps/Minutes 10'x4 standing Standing Exercise Name hip abd & ext Side bilateral Reps/Minutes 2x10 Gait Training Gait Activity 2 Description // bars Device Used none Level of Assistance light hand hold Surface smooth Distance/Duration 10'x2 Treatment Focus glute stabilization Comments pt improved with knee flexion. Noticable lateral sway particularly to left. Pt is aware of gait mechanics Manual Therapy Treatment Soft Tissue Mobilization R knee Body Location R quads and superior aspect of scar Mobilization Type Rolling,Strumming Intensity/Depth Moderate Joint Mobilizations PF Joint R Direction sup, inf, med Grade III PT-OP-R Modalities Start: 03/15/19 12:50 Freq: Status: Active Protocol: Document 08/08/19 15:16 SAK (Rec: 08/08/19 15:25 SAK [id number]) Electric Stimulation Electric Stimulation Interferential Current (IFC) Body Location right knee Duration (Minutes) 12 Intensity 21 Target/Sweep Sweep High/Low High Patient Position Hooklying Combined With Heat/Cold Cold Pack PT-OP-T Assessment and Plan Start: 03/15/19 12:50 Freq: Status: Active Protocol: Document 08/15/19 09:00 LJ (Rec: 08/15/19 16:33 LJ [id number]) Physical Therapy Assessment Rehab Potential Rehabilitation Potential Good Impairments Impairments Activity Tolerance,Gait,Pain, ROM,Strength Goals Five Impairment right LE swelling Short Term Goal (STG) Decrease right LE swelling by 50% STG Duration MET Hot Dog Vendor Goal (LTG) Minimal right LE swelling LTG Duration 12 wks Four Impairment lower extremity functional scale 30% Short Term Goal (STG) Improve LEFS to at least 50% STG Duration 4 wks Hot Dog Vendor Goal (LTG) Improve LEFS to at least 75% LTG Duration 12 wks 3 Impairment decreased right knee strength Short Term Goal (STG) right knee strength 3+/5 STG Duration MET Hot Dog Vendor Goal (LTG) right knee strength 4+/5 to improve functional mobility LTG Duration 12 wks 2 Impairment decreased knee ROM Short Term Goal (STG) right knee AROM 5-110 STG Duration MET Detention Goal (LTG) right knee AROM 0-120 LTG Duration 12 wks 1 Impairment antalgic gait with device Short Term Goal (STG) Patient able to ambulate with minimal limp on level surface with appropriate assistive device STG Duration 4 wks Detention Goal (LTG) Patient able to ambulate without asstive device on level and with railing and alternating pattern on stairs without limp LTG Duration 12 wks Assessment Summary Assessment Pt with significant weakness and poor posture using FWW. Requires manual and verbal cueing with gait training Physical Therapy Plan Next Visit Focus/Plan Next Note Type Treatment Note Next Visit Plan Progress gait training in // [facility]
--- NOTE | 2019-08-17 16:26 | PT.OTN ---
Current Diagnoses Unilateral primary osteoarthritis, right knee (08/17/19) Difficulty in walking, not elsewhere classified (08/17/19) Weakness (08/17/19) Encounter for other orthopedic aftercare (08/17/19) Physical Therapy Treatment Note PT-OP-A Visit Information Start: 03/15/19 12:50 Freq: Status: Active Protocol: Document 08/17/19 09:00 LJ (Rec: 08/17/19 16:26 LJ [email or web address]) Out-Patient Physical Therapy Visit Information Visit Information Visit Type Treatment Note Visit Start Time 09:00 Visit Stop Time 09:46 Total Visit Minutes 58 Visit Number 12 Number of FRESH FOOD MANAGER Visits 1 PT-OP-B Current Condition Start: 03/15/19 12:50 Freq: Status: Active Protocol: Document 07/02/19 09:30 SAK (Rec: 07/02/19 17:22 SAK [id number]) Current Condition History of Current Condition Onset Date 06/21/19 Current Complaints decrease right knee ROM, strength, mobility History of Current Condition Was scheduled for right TKA but came down with a cold and surgery was re- scheduled and performed . Hospital recovery complicated by nausea and states was limited in ability to participate in PT.Was discharged home yesterday. Hasn't had a chance to do her HEP yet. Treatment Goals Patient/Caregiver Goals Be able to take walks, work in garden, to household activities without pain. Prior Functional Status Baseline Function- ADL's Modified Independent Baseline Function- Mobility Modified Independent Baseline Function- Gait indep without device Baseline Function- Other Gardening, taking walks, housework. 5 stairs to enter, radha railings. 14 stairs to garage , 1 railing. Has raised toilet seat. No grab bars in shower. Plan is to go home at discharge. Current Functional Impairments (Reported) Functional Limitations- ADL's painful Functional Limitations- Mobility/Gait painful, uses FWW (height adjusted today) Functional Limitations- Recreation/ unable Hobbies Personal Factors Other Personal Factors That May Effect patient very anxious. Therapy/Recovery Supportive PT-OP-C Subjective Start: 03/15/19 12:50 Freq: Status: Active Protocol: Document 08/17/19 09:00 LJ (Rec: 08/17/19 16:26 LJ [email or web address]) OP-PT Subjective Patient Comments Patient Comments Pt states her knee is a little sore today. Showed her scar and she thought it looked crinkled due to increased swelling. PT-OP-G Mobility & Gait Start: 03/15/19 12:50 Freq: Status: Active Protocol: Document 07/02/19 09:30 [facility] (Rec: 07/02/19 17:22 [facility] [id number]) OP Gait Assessment Gait Gait Assistance Required: Standby Assistance Distance (Feet) 60 Assistive Devices Assistive Device Front Wheeled Walker Orthotic/Prosthetic Devices or Brace: No Gait Deviations General Gait Pattern Decreased Stride Length, Decreased Feet Clearance Factors Limiting Gait Function Factors Limiting Gait Function Limited Range of Motion,Pain Comments Gait Comments Patient required moderate cues for gait sequencing and to allow right knee to bend normally with gait; tends to hold in extension Stair Climbing Evaluation Comments Stair Climbing Comments performed in hospital step-to pattern and at home. Not performed today in PT. PT-OP-K Range of Motion Start: 03/15/19 12:50 Freq: Status: Active Protocol: Document 07/02/19 09:30 [facility] (Rec: 07/02/19 17:22 [facility] [id number]) Knee Goniometric Range of Motion Knee Right Knee ROM WFL No Flexion Active (degrees) 75 Flexion Passive (degrees) 85 Extension Active (degrees) 12 Extension Passive (degrees) 8 Left Knee ROM WFL Yes Ankle and Foot Goniometric Range of Motion Ankle and Foot radha Dorsiflexion with Knee Flexed 5 Dorsiflexion with Knee Extended 0 PT-OP-M Strength Start: 03/15/19 12:50 Freq: Status: Active Protocol: Document 07/02/19 09:30 [facility] (Rec: 07/02/19 17:22 [facility] [id number]) Knee Strength Knee Manual Muscle Testing Right Reason Not Measured Orthopedic Precautions,Pain Comments patient able to do independent SLR and SAQ though with extensor lag of appro 15 deg Left Flexion (S2) 4+ Good+ Extension (L3) 4+ Good+ Ankle/Foot Strength Ankle and Foot Manual Muscle Testing radha Dorsiflexion (L4) 4- Good- Plantarflexion (S1) 4- Good- PT-OP-Q Treatments Start: 03/15/19 12:50 Freq: Status: Active Protocol: Document 08/17/19 09:00 ELVI (Rec: 08/17/19 16:26 LJ [email or web address]) Cardio Equipment Recumbent Stepper (Sci-Fit) Duration (Minutes) 10 Resistance 2 Seat Position 12 Other Gr Back support, UE's and LE's Recumbent Bicycle Duration (Minutes) 8 Resistance 2 Other removed shoes and her feet stayed on pedal better Gym Equipment Shuttle Recovery Unilateral Squats Resistance 37# R, Shuttle Recovery Platform Stable Reps/Time 10x 2 Bilateral Squats Resistance 75# Shuttle Recovery Platform Stable Reps/Time 20x Therapeutic Exercises Supine Exercises 2 Supine Exercise Name partial bridge Reps/Minutes 2x10 Comments 55cm ball under feet gravity assisted knee flex Equipment Used slider sheet, laying on shuttle leg press Reps/Minutes 10x SLR Reps/Minutes 2x10 Comments advised abdominal bracing with exercise quad sets Reps/Minutes 10x Comments towel roll under heel Sitting Exercises knee flexion Side right Equipment Used L2 TB Reps/Minutes 15x Standing Exercises 1 Standing Exercise Name sidestepping Equipment Used parallel bars Reps/Minutes 10'x4 sit to stand Standing Exercise Name sit to stand at rail Reps/Minutes 10 Comments chair behind standing Standing Exercise Name hip abd & ext Side bilateral Reps/Minutes 2x10 toe raise Reps/Minutes 15x heel raise Reps/Minutes 15x Gait Training Gait Activity 2 Description // bars Device Used none Level of Assistance light hand hold Surface smooth Distance/Duration 10'x2 Treatment Focus glute stabilization Comments Pt asked to walk slowly to self-assess when her hip begins to drop and attempt to activate her glutes at that point PT-OP-R Modalities Start: 03/15/19 12:50 Freq: Status: Active Protocol: Document 08/08/19 15:16 [facility] (Rec: 08/08/19 15:25 [facility] [id number]) Electric Stimulation Electric Stimulation Interferential Current (IFC) Body Location right knee Duration (Minutes) 12 Intensity 21 Target/Sweep Sweep High/Low High Patient Position Hooklying Combined With Heat/Cold Cold Pack PT-OP-T Assessment and Plan Start: 03/15/19 12:50 Freq: Status: Active Protocol: Document 08/17/19 09:00 ELVI (Rec: 08/17/19 16:26 LJ [email or web address]) Physical Therapy Assessment Rehab Potential Rehabilitation Potential Good Impairments Impairments Activity Tolerance,Gait,Pain, ROM,Strength Goals Five Impairment right LE swelling Short Term Goal (STG) Decrease right LE swelling by 50% STG Duration MET Mechanical Engineering Professor Goal (LTG) Minimal right LE swelling LTG Duration 12 wks Four Impairment lower extremity functional scale 30% Short Term Goal (STG) Improve LEFS to at least 50% STG Duration 4 wks Penitentiary Goal (LTG) Improve LEFS to at least 75% LTG Duration 12 wks 3 Impairment decreased right knee strength Short Term Goal (STG) right knee strength 3+/5 STG Duration MET Penitentiary Goal (LTG) right knee strength 4+/5 to improve functional mobility LTG Duration 12 wks 2 Impairment decreased knee ROM Short Term Goal (STG) right knee AROM 5-110 STG Duration MET Mechanical Engineering Professor Goal (LTG) right knee AROM 0-120 LTG Duration 12 wks 1 Impairment antalgic gait with device Short Term Goal (STG) Patient able to ambulate with minimal limp on level surface with appropriate assistive device STG Duration 4 wks Penitentiary Goal (LTG) Patient able to ambulate without asstive device on level and with railing and alternating pattern on stairs without limp LTG Duration 12 wks Assessment Summary Assessment Patient tolerated exercises and gait training well. Increase in standing standing exercises did not cause increased fatigue but pt stated she was working harder this session. When performing slow gait exercises in // bars pt was able to identify when her hip begins to drop and was able to slightly correct it with hand hold and manual cueing. Physical Therapy Plan Next Visit Focus/Plan Next Note Type Treatment Note Next Visit Plan Progress gait training in // bars with heavy and slow technique. Add hip hiking and resistance bands as tolerated to strengthen LEs and normalize gait pattern.
--- NOTE | 2019-08-21 11:52 | PT.OTN ---
Current Diagnoses Unilateral primary osteoarthritis, right knee (08/21/19) Difficulty in walking, not elsewhere classified (08/21/19) Weakness (08/21/19) Encounter for other orthopedic aftercare (08/21/19) Physical Therapy Treatment Note PT-OP-A Visit Information Start: 03/15/19 12:50 Freq: Status: Active Protocol: Document 08/21/19 11:39 GGD (Rec: 08/21/19 11:52 GGD [email or web address]) Out-Patient Physical Therapy Visit Information Visit Information Visit Type Treatment Note Visit Start Time 09:00 Visit Stop Time 09:45 Total Visit Minutes 45 Visit Number 15 Number of WATER PROJECT ENGINEER Visits 3 PT-OP-B Current Condition Start: 03/15/19 12:50 Freq: Status: Active Protocol: Document 07/02/19 09:30 SAK (Rec: 07/02/19 17:22 SAK [id number]) Current Condition History of Current Condition Onset Date 06/21/19 Current Complaints decrease right knee ROM, strength, mobility History of Current Condition Was scheduled for right TKA but came down with a cold and surgery was re- scheduled and performed . Hospital recovery complicated by nausea and states was limited in ability to participate in PT.Was discharged home yesterday. Hasn't had a chance to do her HEP yet. Treatment Goals Patient/Caregiver Goals Be able to take walks, work in garden, to household activities without pain. Prior Functional Status Baseline Function- ADL's Modified Independent Baseline Function- Mobility Modified Independent Baseline Function- Gait indep without device Baseline Function- Other Gardening, taking walks, housework. 5 stairs to enter, radha railings. 14 stairs to garage , 1 railing. Has raised toilet seat. No grab bars in shower. Plan is to go home at discharge. Current Functional Impairments (Reported) Functional Limitations- ADL's painful Functional Limitations- Mobility/Gait painful, uses FWW (height adjusted today) Functional Limitations- Recreation/ unable Hobbies Personal Factors Other Personal Factors That May Effect patient very anxious. Therapy/Recovery Supportive PT-OP-C Subjective Start: 03/15/19 12:50 Freq: Status: Active Protocol: Document 08/21/19 11:39 GGD (Rec: 08/21/19 11:52 GGD [email or web address]) OP-PT Subjective Patient Comments Patient Comments Pt states that her knee is improving slowly. PT-OP-G Mobility & Gait Start: 03/15/19 12:50 Freq: Status: Active Protocol: Document 07/02/19 09:[address] [facility] (Rec: 07/02/19 17:[address] [facility] [id number]) OP Gait Assessment Gait Gait Assistance Required: Standby Assistance Distance (Feet) 60 Assistive Devices Assistive Device Front Wheeled Walker Orthotic/Prosthetic Devices or Brace: No Gait Deviations General Gait Pattern Decreased Stride Length, Decreased Feet Clearance Factors Limiting Gait Function Factors Limiting Gait Function Limited Range of Motion,Pain Comments Gait Comments Patient required moderate cues for gait sequencing and to allow right knee to bend normally with gait; tends to hold in extension Stair Climbing Evaluation Comments Stair Climbing Comments performed in hospital step-to pattern and at home. Not performed today in PT. PT-OP-K Range of Motion Start: 03/15/19 12:50 Freq: Status: Active Protocol: Document 08/21/19 11:39 GGD (Rec: 08/21/19 11:52 GGD [email or web address]) Knee Goniometric Range of Motion Knee Right Flexion Active (degrees) 114 PT-OP-M Strength Start: 03/15/19 12:50 Freq: Status: Active Protocol: Document 07/02/19 09:[address] [facility] (Rec: 07/02/19 17:[address] [facility] [id number]) Knee Strength Knee Manual Muscle Testing Right Reason Not Measured Orthopedic Precautions,Pain Comments patient able to do independent SLR and SAQ though with extensor lag of appro 15 deg Left Flexion (S2) 4+ Good+ Extension (L3) 4+ Good+ Ankle/Foot Strength Ankle and Foot Manual Muscle Testing radha Dorsiflexion (L4) 4- Good- Plantarflexion (S1) 4- Good- PT-OP-Q Treatments Start: 03/15/19 12:50 Freq: Status: Active Protocol: Document 08/21/19 11:39 GGD (Rec: 08/21/19 11:52 GGD [email or web address]) Cardio Equipment Recumbent Stepper (Sci-Fit) Duration (Minutes) 10 Resistance 2 Seat Position 12 Other Gr Back support, UE's and LE's Gym Equipment Shuttle Recovery Unilateral Squats Resistance 37# R, Shuttle Recovery Platform Stable Reps/Time 10x 2 Bilateral Squats Resistance 75# Shuttle Recovery Platform Stable Reps/Time 20x Therapeutic Exercises Supine Exercises gravity assisted knee flex Equipment Used slider sheet, laying on shuttle leg press Reps/Minutes 10x Sitting Exercises knee flexion Side right Equipment Used L2 TB Reps/Minutes 15x Standing Exercises 1 Standing Exercise Name sidestepping Resistance yellow band Equipment Used parallel bars Reps/Minutes 10'x4 sit to stand Standing Exercise Name sit to stand at rail Reps/Minutes 10 Comments chair behind standing Standing Exercise Name hip abd & ext Side bilateral Reps/Minutes 2x10 Gait Training Gait Activity 2 Description // bars Device Used none Level of Assistance light hand hold Surface smooth Distance/Duration 10'x2 Treatment Focus glute stabilization Comments Pt asked to walk slowly to self-assess when her hip begins to drop and attempt to activate her glutes at that point PT-OP-R Modalities Start: 03/15/19 12:50 Freq: Status: Active Protocol: Document 08/08/19 15:16 SAK (Rec: 08/08/19 15:25 SAK [id number]) Electric Stimulation Electric Stimulation Interferential Current (IFC) Body Location right knee Duration (Minutes) 12 Intensity 21 Target/Sweep Sweep High/Low High Patient Position Hooklying Combined With Heat/Cold Cold Pack PT-OP-T Assessment and Plan Start: 03/15/19 12:50 Freq: Status: Active Protocol: Document 08/21/19 11:39 GGD (Rec: 08/21/19 11:52 GGD [email or web address]) Physical Therapy Assessment Goals Five Impairment right LE swelling Short Term Goal (STG) Decrease right LE swelling by 50% STG Duration MET Scorer Helper Goal (LTG) Minimal right LE swelling LTG Duration 12 wks Four Impairment lower extremity functional scale 30% Short Term Goal (STG) Improve LEFS to at least 50% STG Duration 4 wks Retirement Goal (LTG) Improve LEFS to at least 75% LTG Duration 12 wks 3 Impairment decreased right knee strength Short Term Goal (STG) right knee strength 3+/5 STG Duration MET Scorer Helper Goal (LTG) right knee strength 4+/5 to improve functional mobility LTG Duration 12 wks 2 Impairment decreased knee ROM Short Term Goal (STG) right knee AROM 5-110 STG Duration MET Scorer Helper Goal (LTG) right knee AROM 0-120 LTG Duration 12 wks 1 Impairment antalgic gait with device Short Term Goal (STG) Patient able to ambulate with minimal limp on level surface with appropriate assistive device STG Duration 4 wks Retirement Goal (LTG) Patient able to ambulate without asstive device on level and with railing and alternating pattern on stairs without limp LTG Duration 12 wks Assessment Summary Assessment Pt improving with knee ROM to 114 degrees. She unable to progress gait without UE support or hip drop. Pt needed cues for side step with resistance. Physical Therapy Plan Next Visit Focus/Plan Next Note Type Treatment Note Next Visit Plan gait training and strengthening progression
--- NOTE | 2019-08-24 16:33 | PT.OTN ---
Current Diagnoses Unilateral primary osteoarthritis, right knee (08/24/19) Difficulty in walking, not elsewhere classified (08/24/19) Weakness (08/24/19) Encounter for other orthopedic aftercare (08/24/19) Physical Therapy Treatment Note PT-OP-A Visit Information Start: 03/15/19 12:50 Freq: Status: Active Protocol: Document 08/24/19 13:45 AMB (Rec: 08/24/19 13:56 AMB [id number]) Out-Patient Physical Therapy Visit Information Visit Information Visit Type Treatment Note Visit Start Time 13:45 Visit Stop Time 14:30 Total Visit Minutes 45 Visit Number 16 Number of GRAPHICS SPECIALIST Visits 0 PT-OP-B Current Condition Start: 03/15/19 12:50 Freq: Status: Active Protocol: Document 07/02/19 09:30 SAK (Rec: 07/02/19 17:22 SAK [id number]) Current Condition History of Current Condition Onset Date 06/21/19 Current Complaints decrease right knee ROM, strength, mobility History of Current Condition Was scheduled for right TKA but came down with a cold and surgery was re- scheduled and performed . Hospital recovery complicated by nausea and states was limited in ability to participate in PT.Was discharged home yesterday. Hasn't had a chance to do her HEP yet. Treatment Goals Patient/Caregiver Goals Be able to take walks, work in garden, to household activities without pain. Prior Functional Status Baseline Function- ADL's Modified Independent Baseline Function- Mobility Modified Independent Baseline Function- Gait indep without device Baseline Function- Other Gardening, taking walks, housework. 5 stairs to enter, radha railings. 14 stairs to garage , 1 railing. Has raised toilet seat. No grab bars in shower. Plan is to go home at discharge. Current Functional Impairments (Reported) Functional Limitations- ADL's painful Functional Limitations- Mobility/Gait painful, uses FWW (height adjusted today) Functional Limitations- Recreation/ unable Hobbies Personal Factors Other Personal Factors That May Effect patient very anxious. Therapy/Recovery Supportive PT-OP-C Subjective Start: 03/15/19 12:50 Freq: Status: Active Protocol: Document 08/24/19 13:45 AMB (Rec: 08/24/19 13:56 AMB [id number]) OP-PT Subjective Patient Comments Patient Comments Pt has not had any dizziness or lightheadedness. Still having difficulty with sleeping, walking without walker. PT-OP-G Mobility & Gait Start: 03/15/19 12:50 Freq: Status: Active Protocol: Document 07/02/19 09:30 SAK (Rec: 07/02/19 17:22 SAK [id number]) OP Gait Assessment Gait Gait Assistance Required: Standby Assistance Distance (Feet) 60 Assistive Devices Assistive Device Front Wheeled Walker Orthotic/Prosthetic Devices or Brace: No Gait Deviations General Gait Pattern Decreased Stride Length, Decreased Feet Clearance Factors Limiting Gait Function Factors Limiting Gait Function Limited Range of Motion,Pain Comments Gait Comments Patient required moderate cues for gait sequencing and to allow right knee to bend normally with gait; tends to hold in extension Stair Climbing Evaluation Comments Stair Climbing Comments performed in hospital step-to pattern and at home. Not performed today in PT. PT-OP-K Range of Motion Start: 03/15/19 12:50 Freq: Status: Active Protocol: Document 08/21/19 11:39 GGD (Rec: 08/21/19 11:52 GGD [email or web address]) Knee Goniometric Range of Motion Knee Right Flexion Active (degrees) 114 PT-OP-M Strength Start: 03/15/19 12:50 Freq: Status: Active Protocol: Document 07/02/19 09:30 [facility] (Rec: 07/02/19 17:22 [facility] [id number]) Knee Strength Knee Manual Muscle Testing Right Reason Not Measured Orthopedic Precautions,Pain Comments patient able to do independent SLR and SAQ though with extensor lag of appro 15 deg Left Flexion (S2) 4+ Good+ Extension (L3) 4+ Good+ Ankle/Foot Strength Ankle and Foot Manual Muscle Testing radha Dorsiflexion (L4) 4- Good- Plantarflexion (S1) 4- Good- PT-OP-Q Treatments Start: 03/15/19 12:50 Freq: Status: Active Protocol: Document 08/24/19 13:45 AMB (Rec: 08/24/19 16:33 AMB [email or web address]) Cardio Equipment Recumbent Elliptical (Network18) Duration (Minutes) 7 Resistance 4 Therapeutic Exercises Sidelying Exercises 1 Sidelying Exercise Name clamshell with t band Resistance #2 t band Comments 2x10 Standing Exercises 1 Standing Exercise Name sidestepping Resistance yellow band Equipment Used parallel bars Reps/Minutes 10'x6 sit to stand Standing Exercise Name sit to stand at rail Reps/Minutes 10 Comments chair behind Gait Training Gait Activity 2 Description // bars Device Used none Level of Assistance light hand hold Surface smooth Distance/Duration 10'x2 Treatment Focus glute stabilization Comments Pt asked to walk slowly to self-assess when her hip begins to drop and attempt to activate her glutes at that point Manual Therapy Treatment Soft Tissue Mobilization R knee Body Location scar tissue Mobilization Type Cross-Friction Comments instructed pt she can use lotion on scar if she wants PT-OP-R Modalities Start: 03/15/19 12:50 Freq: Status: Active Protocol: Document 08/08/19 15:16 SAK (Rec: 08/08/19 15:25 SAK [id number]) Electric Stimulation Electric Stimulation Interferential Current (IFC) Body Location right knee Duration (Minutes) 12 Intensity 21 Target/Sweep Sweep High/Low High Patient Position Hooklying Combined With Heat/Cold Cold Pack PT-OP-T Assessment and Plan Start: 03/15/19 12:50 Freq: Status: Active Protocol: Document 08/24/19 13:45 AMB (Rec: 08/24/19 16:33 AMB [email or web address]) Physical Therapy Assessment Assessment Summary Assessment Pt with continued hip abd and ER weakness which is now impacting gait more than knee ROM. Physical Therapy Plan Next Visit Focus/Plan Next Note Type Treatment Note Next Visit Plan gait training and strengthening progression
--- NOTE | 2019-08-28 10:04 | PT.OTN ---
Current Diagnoses Unilateral primary osteoarthritis, right knee (08/28/19) Difficulty in walking, not elsewhere classified (08/28/19) Weakness (08/28/19) Encounter for other orthopedic aftercare (08/28/19) Physical Therapy Treatment Note PT-OP-A Visit Information Start: 03/15/19 12:50 Freq: Status: Active Protocol: Document 08/28/19 09:57 GGD (Rec: 08/28/19 10:04 GGD [email or web address]) Out-Patient Physical Therapy Visit Information Visit Information Visit Type Treatment Note Visit Start Time 09:07 Visit Stop Time 09:48 Total Visit Minutes 41 Visit Number 17 Number of STORE STOCK ASSOCIATE Visits 1 PT-OP-B Current Condition Start: 03/15/19 12:50 Freq: Status: Active Protocol: Document 07/02/19 09:30 SAK (Rec: 07/02/19 17:22 SAK [id number]) Current Condition History of Current Condition Onset Date 06/21/19 Current Complaints decrease right knee ROM, strength, mobility History of Current Condition Was scheduled for right TKA but came down with a cold and surgery was re- scheduled and performed . Hospital recovery complicated by nausea and states was limited in ability to participate in PT.Was discharged home yesterday. Hasn't had a chance to do her HEP yet. Treatment Goals Patient/Caregiver Goals Be able to take walks, work in garden, to household activities without pain. Prior Functional Status Baseline Function- ADL's Modified Independent Baseline Function- Mobility Modified Independent Baseline Function- Gait indep without device Baseline Function- Other Gardening, taking walks, housework. 5 stairs to enter, radha railings. 14 stairs to garage , 1 railing. Has raised toilet seat. No grab bars in shower. Plan is to go home at discharge. Current Functional Impairments (Reported) Functional Limitations- ADL's painful Functional Limitations- Mobility/Gait painful, uses FWW (height adjusted today) Functional Limitations- Recreation/ unable Hobbies Personal Factors Other Personal Factors That May Effect patient very anxious. Therapy/Recovery Supportive PT-OP-C Subjective Start: 03/15/19 12:50 Freq: Status: Active Protocol: Document 08/28/19 09:57 GGD (Rec: 08/28/19 10:04 GGD [email or web address]) OP-PT Subjective Patient Comments Patient Comments Pt states that her knee is stiff and sore when she wakes. PT-OP-G Mobility & Gait Start: 03/15/19 12:50 Freq: Status: Active Protocol: Document 07/02/19 09:30 [facility] (Rec: 07/02/19 17:22 [facility] [id number]) OP Gait Assessment Gait Gait Assistance Required: Standby Assistance Distance (Feet) 60 Assistive Devices Assistive Device Front Wheeled Walker Orthotic/Prosthetic Devices or Brace: No Gait Deviations General Gait Pattern Decreased Stride Length, Decreased Feet Clearance Factors Limiting Gait Function Factors Limiting Gait Function Limited Range of Motion,Pain Comments Gait Comments Patient required moderate cues for gait sequencing and to allow right knee to bend normally with gait; tends to hold in extension Stair Climbing Evaluation Comments Stair Climbing Comments performed in hospital step-to pattern and at home. Not performed today in PT. PT-OP-K Range of Motion Start: 03/15/19 12:50 Freq: Status: Active Protocol: Document 08/21/19 11:39 GGD (Rec: 08/21/19 11:52 GGD [email or web address]) Knee Goniometric Range of Motion Knee Right Flexion Active (degrees) 114 PT-OP-M Strength Start: 03/15/19 12:50 Freq: Status: Active Protocol: Document 07/02/19 09:30 [facility] (Rec: 07/02/19 17:22 [facility] [id number]) Knee Strength Knee Manual Muscle Testing Right Reason Not Measured Orthopedic Precautions,Pain Comments patient able to do independent SLR and SAQ though with extensor lag of appro 15 deg Left Flexion (S2) 4+ Good+ Extension (L3) 4+ Good+ Ankle/Foot Strength Ankle and Foot Manual Muscle Testing radha Dorsiflexion (L4) 4- Good- Plantarflexion (S1) 4- Good- PT-OP-Q Treatments Start: 03/15/19 12:50 Freq: Status: Active Protocol: Document 08/28/19 09:57 GGD (Rec: 08/28/19 10:04 GGD [email or web address]) Cardio Equipment Recumbent Stepper (Sci-Fit) Duration (Minutes) 10 Resistance 2 Seat Position 12 Other Gr Back support, UE's and LE's Gym Equipment Shuttle Recovery Unilateral Squats Resistance 50# R, Shuttle Recovery Platform Stable Reps/Time 10x 2 Bilateral Squats Resistance 87# Shuttle Recovery Platform Stable Reps/Time 20x Therapeutic Exercises Sidelying Exercises 1 Sidelying Exercise Name clamshell with t band Resistance #2 t band Comments 2x10 Standing Exercises 1 Standing Exercise Name sidestepping Resistance yellow band Equipment Used parallel bars Reps/Minutes 10'x6 sit to stand Standing Exercise Name sit to stand at rail Reps/Minutes 10 Comments chair behind Gait Training Gait Activity 2 Description // bars and SPC/rail Device Used none Level of Assistance light hand hold Surface smooth Distance/Duration 10'x2 Treatment Focus glute stabilization Comments Pt asked to walk slowly to self-assess when her hip begins to drop and attempt to activate her glutes at that point PT-OP-R Modalities Start: 03/15/19 12:50 Freq: Status: Active Protocol: Document 08/08/19 15:16 SAK (Rec: 08/08/19 15:25 SAK [id number]) Electric Stimulation Electric Stimulation Interferential Current (IFC) Body Location right knee Duration (Minutes) 12 Intensity 21 Target/Sweep Sweep High/Low High Patient Position Hooklying Combined With Heat/Cold Cold Pack PT-OP-T Assessment and Plan Start: 03/15/19 12:50 Freq: Status: Active Protocol: Document 08/28/19 09:57 GGD (Rec: 08/28/19 10:04 GGD [email or web address]) Physical Therapy Assessment Goals Five Impairment right LE swelling Short Term Goal (STG) Decrease right LE swelling by 50% STG Duration MET [facility] Goal (LTG) Minimal right LE swelling LTG Duration 12 wks Four Impairment lower extremity functional scale 30% Short Term Goal (STG) Improve LEFS to at least 50% STG Duration 4 wks [facility] Goal (LTG) Improve LEFS to at least 75% LTG Duration 12 wks 3 Impairment decreased right knee strength Short Term Goal (STG) right knee strength 3+/5 STG Duration MET [employer] Secretary [employer] Handicapper Goal (LTG) right knee strength 4+/5 to improve functional mobility LTG Duration 12 wks 2 Impairment decreased knee ROM Short Term Goal (STG) right knee AROM 5-110 STG Duration MET [facility] Goal (LTG) right knee AROM 0-120 LTG Duration 12 wks 1 Impairment antalgic gait with device Short Term Goal (STG) Patient able to ambulate with minimal limp on level surface with appropriate assistive device STG Duration 4 wks [employer]apper Goal (LTG) Patient able to ambulate without assistive device on level and with railing and alternating pattern on stairs without limp LTG Duration 12 wks Assessment Summary Assessment Pt improving with gait, needing with less cues. She was able to progress LE strengthening. Physical Therapy Plan Frequency and Duration Frequency of Treatment 3x/Week Duration of Treatment 12 wks Plan of Care Start Date 07/02/19 Plan of Care End Date 10/02/19 Next Visit Focus/Plan Next Note Type Treatment Note Next Visit Plan gait training and strengthening progression
--- NOTE | 2019-08-30 12:04 | PT.OTN ---
Current Diagnoses Unilateral primary osteoarthritis, right knee (08/30/19) Difficulty in walking, not elsewhere classified (08/30/19) Weakness (08/30/19) Encounter for other orthopedic aftercare (08/30/19) Physical Therapy Treatment Note PT-OP-A Visit Information Start: 03/15/19 12:50 Freq: Status: Active Protocol: Document 08/30/19 09:45 AMB (Rec: 08/30/19 10:03 AMB [id number]) Out-Patient Physical Therapy Visit Information Visit Information Visit Type Treatment Note Visit Start Time 09:50 Visit Stop Time 10:31 Total Visit Minutes 41 Visit Number 18 Number of SLIP TENDER Visits 0 PT-OP-B Current Condition Start: 03/15/19 12:50 Freq: Status: Active Protocol: Document 07/02/19 09:30 SAK (Rec: 07/02/19 17:22 SAK [id number]) Current Condition History of Current Condition Onset Date 06/21/19 Current Complaints decrease right knee ROM, strength, mobility History of Current Condition Was scheduled for right TKA but came down with a cold and surgery was re- scheduled and performed . Hospital recovery complicated by nausea and states was limited in ability to participate in PT.Was discharged home yesterday. Hasn't had a chance to do her HEP yet. Treatment Goals Patient/Caregiver Goals Be able to take walks, work in garden, to household activities without pain. Prior Functional Status Baseline Function- ADL's Modified Independent Baseline Function- Mobility Modified Independent Baseline Function- Gait indep without device Baseline Function- Other Gardening, taking walks, housework. 5 stairs to enter, radha railings. 14 stairs to garage , 1 railing. Has raised toilet seat. No grab bars in shower. Plan is to go home at discharge. Current Functional Impairments (Reported) Functional Limitations- ADL's painful Functional Limitations- Mobility/Gait painful, uses FWW (height adjusted today) Functional Limitations- Recreation/ unable Hobbies Personal Factors Other Personal Factors That May Effect patient very anxious. Therapy/Recovery Supportive PT-OP-C Subjective Start: 03/15/19 12:50 Freq: Status: Active Protocol: Document 08/30/19 09:45 AMB (Rec: 08/30/19 10:03 AMB [id number]) OP-PT Subjective Patient Comments Patient Comments Pt walked around [employer] yesterday with her walker and was tired afterwards. PT-OP-G Mobility & Gait Start: 03/15/19 12:50 Freq: Status: Active Protocol: Document 07/02/19 09:30 [facility] (Rec: 07/02/19 17:22 [facility] [id number]) OP Gait Assessment Gait Gait Assistance Required: Standby Assistance Distance (Feet) 60 Assistive Devices Assistive Device Front Wheeled Walker Orthotic/Prosthetic Devices or Brace: No Gait Deviations General Gait Pattern Decreased Stride Length, Decreased Feet Clearance Factors Limiting Gait Function Factors Limiting Gait Function Limited Range of Motion,Pain Comments Gait Comments Patient required moderate cues for gait sequencing and to allow right knee to bend normally with gait; tends to hold in extension Stair Climbing Evaluation Comments Stair Climbing Comments performed in hospital step-to pattern and at home. Not performed today in PT. PT-OP-K Range of Motion Start: 03/15/19 12:50 Freq: Status: Active Protocol: Document 08/21/19 11:39 GGD (Rec: 08/21/19 11:52 GGD [email or web address]) Knee Goniometric Range of Motion Knee Right Flexion Active (degrees) 114 PT-OP-M Strength Start: 03/15/19 12:50 Freq: Status: Active Protocol: Document 07/02/19 09:30 [facility] (Rec: 07/02/19 17:22 [facility] [id number]) Knee Strength Knee Manual Muscle Testing Right Reason Not Measured Orthopedic Precautions,Pain Comments patient able to do independent SLR and SAQ though with extensor lag of appro 15 deg Left Flexion (S2) 4+ Good+ Extension (L3) 4+ Good+ Ankle/Foot Strength Ankle and Foot Manual Muscle Testing radha Dorsiflexion (L4) 4- Good- Plantarflexion (S1) 4- Good- PT-OP-Q Treatments Start: 03/15/19 12:50 Freq: Status: Active Protocol: Document 08/30/19 09:45 AMB (Rec: 08/30/19 10:03 AMB [id number]) Cardio Equipment Recumbent Stepper (Sci-Fit) Duration (Minutes) 10 Resistance 3 Seat Position 12 Other Gr Back support, UE's and LE's Therapeutic Exercises Supine Exercises SLR Reps/Minutes 2x10 Comments advised abdominal bracing with exercise Sidelying Exercises 2 Sidelying Exercise Name hip abduction Comments 1x5 with cues 1 Sidelying Exercise Name clamshell with t band Resistance #2 t band Comments 2x10 Gait Training Gait Activity 2 Description // bars and SPC/rail Device Used none Level of Assistance light hand hold Surface smooth Distance/Duration 10'x2 Treatment Focus glute stabilization Comments Pt asked to walk slowly to self-assess when her hip begins to drop and attempt to activate her glutes at that point PT-OP-R Modalities Start: 03/15/19 12:50 Freq: Status: Active Protocol: Document 08/30/19 11:59 AMB (Rec: 08/30/19 12:02 AMB [email or web address]) Hot Pack/Cold Pack Treatment Cold Pack Location R knee Patient Position Hooklying Treatment Duration (minutes) 10 PT-OP-T Assessment and Plan Start: 03/15/19 12:50 Freq: Status: Active Protocol: Document 08/30/19 11:59 AMB (Rec: 08/30/19 12:02 AMB [email or web address]) Physical Therapy Assessment Assessment Summary Assessment Chetna's biggest challenge continues to be her hip abductor/external rotation weakness. continued to have hip drop when walking with SPC but better sequencing of gait today (continues to need cues ). Physical Therapy Plan Next Visit Focus/Plan Next Note Type Treatment Note Next Visit Plan gait training and strengthening progression
--- NOTE | 2019-09-04 16:37 | PT.OTN ---
Current Diagnoses Unilateral primary osteoarthritis, right knee (09/04/19) Difficulty in walking, not elsewhere classified (09/04/19) Weakness (09/04/19) Encounter for other orthopedic aftercare (09/04/19) Physical Therapy Treatment Note PT-OP-A Visit Information Start: 03/15/19 12:50 Freq: Status: Active Protocol: Document 09/04/19 16:24 GGD (Rec: 09/04/19 16:37 GGD [email or web address]) Out-Patient Physical Therapy Visit Information Visit Information Visit Type Treatment Note Visit Start Time 12:00 Visit Stop Time 12:50 Total Visit Minutes 50 Visit Number 19 Number of [facility] Visits 1 Evaluation Information Evaluation Date 03/16/19 PT-OP-B Current Condition Start: 03/15/19 12:50 Freq: Status: Active Protocol: Document 07/02/19 09:30 SAK (Rec: 07/02/19 17:22 SAK [id number]) Current Condition History of Current Condition Onset Date 06/21/19 Current Complaints decrease right knee ROM, strength, mobility History of Current Condition Was scheduled for right TKA but came down with a cold and surgery was re- scheduled and performed . Hospital recovery complicated by nausea and states was limited in ability to participate in PT.Was discharged home yesterday. Hasn't had a chance to do her HEP yet. Treatment Goals Patient/Caregiver Goals Be able to take walks, work in garden, to household activities without pain. Prior Functional Status Baseline Function- ADL's Modified Independent Baseline Function- Mobility Modified Independent Baseline Function- Gait indep without device Baseline Function- Other Gardening, taking walks, housework. 5 stairs to enter, radha railings. 14 stairs to garage , 1 railing. Has raised toilet seat. No grab bars in shower. Plan is to go home at discharge. Current Functional Impairments (Reported) Functional Limitations- ADL's painful Functional Limitations- Mobility/Gait painful, uses FWW (height adjusted today) Functional Limitations- Recreation/ unable Hobbies Personal Factors Other Personal Factors That May Effect patient very anxious. Therapy/Recovery Supportive PT-OP-C Subjective Start: 03/15/19 12:50 Freq: Status: Active Protocol: Document 09/04/19 16:24 GGD (Rec: 09/04/19 16:37 GGD [email or web address]) OP-PT Subjective Patient Comments Patient Comments Pt states she been doing her HEP. PT-OP-G Mobility & Gait Start: 03/15/19 12:50 Freq: Status: Active Protocol: Document 07/02/19 09:30 [facility] (Rec: 07/02/19 17:22 SAK [id number]) OP Gait Assessment Gait Gait Assistance Required: Standby Assistance Distance (Feet) 60 Assistive Devices Assistive Device Front Wheeled Walker Orthotic/Prosthetic Devices or Brace: No Gait Deviations General Gait Pattern Decreased Stride Length, Decreased Feet Clearance Factors Limiting Gait Function Factors Limiting Gait Function Limited Range of Motion,Pain Comments Gait Comments Patient required moderate cues for gait sequencing and to allow right knee to bend normally with gait; tends to hold in extension Stair Climbing Evaluation Comments Stair Climbing Comments performed in hospital step-to pattern and at home. Not performed today in PT. PT-OP-K Range of Motion Start: 03/15/19 12:50 Freq: Status: Active Protocol: Document 08/21/19 11:39 GGD (Rec: 08/21/19 11:52 GGD [email or web address]) Knee Goniometric Range of Motion Knee Right Flexion Active (degrees) 114 PT-OP-M Strength Start: 03/15/19 12:50 Freq: Status: Active Protocol: Document 07/02/19 09:30 [facility] (Rec: 07/02/19 17:22 [facility] [id number]) Knee Strength Knee Manual Muscle Testing Right Reason Not Measured Orthopedic Precautions,Pain Comments patient able to do independent SLR and SAQ though with extensor lag of appro 15 deg Left Flexion (S2) 4+ Good+ Extension (L3) 4+ Good+ Ankle/Foot Strength Ankle and Foot Manual Muscle Testing radha Dorsiflexion (L4) 4- Good- Plantarflexion (S1) 4- Good- PT-OP-Q Treatments Start: 03/15/19 12:50 Freq: Status: Active Protocol: Document 09/04/19 16:24 GGD (Rec: 09/04/19 16:37 GGD [email or web address]) Cardio Equipment Recumbent Stepper (Sci-Fit) Duration (Minutes) 10 Resistance 3 Seat Position 12 Other Gr Back support, UE's and LE's Therapeutic Exercises Supine Exercises SLR Reps/Minutes 2x10 Comments advised abdominal bracing with exercise Sidelying Exercises 2 Sidelying Exercise Name hip abduction in sidelying x 5 in supine x 10 Reps/Minutes supine x 10 with cues Comments sidelying 1x5 with cues 1 Sidelying Exercise Name clamshell with t band Resistance #2 t band Comments 2x10 Standing Exercises sit to stand Standing Exercise Name sit to stand mat table Reps/Minutes 10 Comments high mat table, cues for no UE Gait Training Gait Activity 2 Description // bars and SPC/rail, single rail Device Used none Level of Assistance light hand hold Surface smooth Distance/Duration 10'x2 Treatment Focus glute stabilization Comments Pt asked to walk slowly to self-assess when her hip begins to drop and attempt to activate her glutes at that point PT-OP-R Modalities Start: 03/15/19 12:50 Freq: Status: Active Protocol: Document 09/04/19 16:24 GGD (Rec: 09/04/19 16:37 GGD [email or web address]) Hot Pack/Cold Pack Treatment Cold Pack Location R knee Patient Position Hooklying Treatment Duration (minutes) 10 PT-OP-T Assessment and Plan Start: 03/15/19 12:50 Freq: Status: Active Protocol: Document 09/04/19 16:24 GGD (Rec: 09/04/19 16:37 GGD [email or web address]) Physical Therapy Assessment Goals Five Impairment right LE swelling Short Term Goal (STG) Decrease right LE swelling by 50% STG Duration [facility] Goal (LTG) Minimal right LE swelling LTG Duration 12 wks Four Impairment lower extremity functional scale 30% Short Term Goal (STG) Improve LEFS to at least 50% STG Duration 4 wks Career Development Specialist Goal (LTG) Improve LEFS to at least 75% LTG Duration 12 wks 3 Impairment decreased right knee strength Short Term Goal (STG) right knee strength 3+/5 STG Duration MET Career Development Specialist Goal (LTG) right knee strength 4+/5 to improve functional mobility LTG Duration 12 wks 2 Impairment decreased knee ROM Short Term Goal (STG) right knee AROM 5-110 STG Duration MET Career Development Specialist Goal (LTG) right knee AROM 0-120 LTG Duration 12 wks 1 Impairment antalgic gait with device Short Term Goal (STG) Patient able to ambulate with minimal limp on level surface with appropriate assistive device STG Duration 4 wks Career Development Specialist Goal (LTG) Patient able to ambulate without asstive device on level and with railing and alternating pattern on stairs without limp LTG Duration 12 wks Assessment Summary Assessment Pt is weak in hip abduction and needs cues for exercise technique. She is improving with her sit to stand and needed less UE support. She was able to progress gait to single rail with good from, she was unsafe with gait with SPC. Physical Therapy Plan Frequency and Duration Frequency of Treatment 3x/Week Duration of Treatment 12 wks Plan of Care Start Date 07/02/19 Plan of Care End Date 10/02/19 Next Visit Focus/Plan Next Note Type Treatment Note Next Visit Plan gait training and strengthening progression
--- NOTE | 2019-09-04 16:39 | PT.OTN ---
Current Diagnoses Unilateral primary osteoarthritis, right knee (09/04/19) Difficulty in walking, not elsewhere classified (09/04/19) Weakness (09/04/19) Encounter for other orthopedic aftercare (09/04/19) Physical Therapy Treatment Note PT-OP-A Visit Information Start: 03/15/19 12:50 Freq: Status: Active Protocol: Document 09/04/19 16:24 GGD (Rec: 09/04/19 16:37 GGD [id number]) Out-Patient Physical Therapy Visit Information Visit Information Visit Type Treatment Note Visit Start Time 12:00 Visit Stop Time 12:50 Total Visit Minutes 50 Visit Number 19 Number of INSOLE CHANNELER Visits 1 Evaluation Information Evaluation Date 03/16/19 PT-OP-B Current Condition Start: 03/15/19 12:50 Freq: Status: Active Protocol: Document 07/02/19 09:30 SAK (Rec: 07/02/19 17:22 SAK [id number]) Current Condition History of Current Condition Onset Date 06/21/19 Current Complaints decrease right knee ROM, strength, mobility History of Current Condition Was scheduled for right TKA but came down with a cold and surgery was re- scheduled and performed . Hospital recovery complicated by nausea and states was limited in ability to participate in PT.Was discharged home yesterday. Hasn't had a chance to do her HEP yet. Treatment Goals Patient/Caregiver Goals Be able to take walks, work in garden, to household activities without pain. Prior Functional Status Baseline Function- ADL's Modified Independent Baseline Function- Mobility Modified Independent Baseline Function- Gait indep without device Baseline Function- Other Gardening, taking walks, housework. 5 stairs to enter, radha railings. 14 stairs to garage , 1 railing. Has raised toilet seat. No grab bars in shower. Plan is to go home at discharge. Current Functional Impairments (Reported) Functional Limitations- ADL's painful Functional Limitations- Mobility/Gait painful, uses FWW (height adjusted today) Functional Limitations- Recreation/ unable Hobbies Personal Factors Other Personal Factors That May Effect patient very anxious. Therapy/Recovery Supportive PT-OP-C Subjective Start: 03/15/19 12:50 Freq: Status: Active Protocol: Document 09/04/19 16:24 GGD (Rec: 09/04/19 16:37 GGD [email or web address]) OP-PT Subjective Patient Comments Patient Comments Pt states she been doing her HEP. PT-OP-G Mobility & Gait Start: 03/15/19 12:50 Freq: Status: Active Protocol: Document 07/02/19 09:30 [facility] (Rec: 07/02/19 17:22 SAK [id number]) OP Gait Assessment Gait Gait Assistance Required: Standby Assistance Distance (Feet) 60 Assistive Devices Assistive Device Front Wheeled Walker Orthotic/Prosthetic Devices or Brace: No Gait Deviations General Gait Pattern Decreased Stride Length, Decreased Feet Clearance Factors Limiting Gait Function Factors Limiting Gait Function Limited Range of Motion,Pain Comments Gait Comments Patient required moderate cues for gait sequencing and to allow right knee to bend normally with gait; tends to hold in extension Stair Climbing Evaluation Comments Stair Climbing Comments performed in hospital step-to pattern and at home. Not performed today in PT. PT-OP-K Range of Motion Start: 03/15/19 12:50 Freq: Status: Active Protocol: Document 08/21/19 11:39 GGD (Rec: 08/21/19 11:52 GGD [email or web address]) Knee Goniometric Range of Motion Knee Right Flexion Active (degrees) 114 PT-OP-M Strength Start: 03/15/19 12:50 Freq: Status: Active Protocol: Document 07/02/19 09:30 [facility] (Rec: 07/02/19 17:22 [facility] [id number]) Knee Strength Knee Manual Muscle Testing Right Reason Not Measured Orthopedic Precautions,Pain Comments patient able to do independent SLR and SAQ though with extensor lag of appro 15 deg Left Flexion (S2) 4+ Good+ Extension (L3) 4+ Good+ Ankle/Foot Strength Ankle and Foot Manual Muscle Testing radha Dorsiflexion (L4) 4- Good- Plantarflexion (S1) 4- Good- PT-OP-Q Treatments Start: 03/15/19 12:50 Freq: Status: Active Protocol: Document 09/04/19 16:24 GGD (Rec: 09/04/19 16:37 GGD [email or web address]) Cardio Equipment Recumbent Stepper (Sci-Fit) Duration (Minutes) 10 Resistance 3 Seat Position 12 Other Gr Back support, UE's and LE's Therapeutic Exercises Supine Exercises SLR Reps/Minutes 2x10 Comments advised abdominal bracing with exercise Sidelying Exercises 2 Sidelying Exercise Name hip abduction in sidelying x 5 in supine x 10 Reps/Minutes supine x 10 with cues Comments sidelying 1x5 with cues 1 Sidelying Exercise Name clamshell with t band Resistance #2 t band Comments 2x10 Standing Exercises sit to stand Standing Exercise Name sit to stand mat table Reps/Minutes 10 Comments high mat table, cues for no UE Gait Training Gait Activity 2 Description // bars and SPC/rail, single rail Device Used none Level of Assistance light hand hold Surface smooth Distance/Duration 10'x2 Treatment Focus glute stabilization Comments Pt asked to walk slowly to self-assess when her hip begins to drop and attempt to activate her glutes at that point PT-OP-R Modalities Start: 03/15/19 12:50 Freq: Status: Active Protocol: Document 09/04/19 16:24 GGD (Rec: 09/04/19 16:37 GGD [email or web address]) Hot Pack/Cold Pack Treatment Cold Pack Location R knee Patient Position Hooklying Treatment Duration (minutes) 10 PT-OP-T Assessment and Plan Start: 03/15/19 12:50 Freq: Status: Active Protocol: Document 09/04/19 16:24 GGD (Rec: 09/04/19 16:37 GGD [email or web address]) Physical Therapy Assessment Goals Five Impairment right LE swelling Short Term Goal (STG) Decrease right LE swelling by 50% STG Duration MET Custodial Goal (LTG) Minimal right LE swelling LTG Duration 12 wks Four Impairment lower extremity functional scale 30% Short Term Goal (STG) Improve LEFS to at least 50% STG Duration 4 wks Application Processor Goal (LTG) Improve LEFS to at least 75% LTG Duration 12 wks 3 Impairment decreased right knee strength Short Term Goal (STG) right knee strength 3+/5 STG Duration MET Application Processor Goal (LTG) right knee strength 4+/5 to improve functional mobility LTG Duration 12 wks 2 Impairment decreased knee ROM Short Term Goal (STG) right knee AROM 5-110 STG Duration MET Application Processor Goal (LTG) right knee AROM 0-120 LTG Duration 12 wks 1 Impairment antalgic gait with device Short Term Goal (STG) Patient able to ambulate with minimal limp on level surface with appropriate assistive device STG Duration 4 wks Application Processor Goal (LTG) Patient able to ambulate without asstive device on level and with railing and alternating pattern on stairs without limp LTG Duration 12 wks Assessment Summary Assessment Pt is weak in hip abduction and needs cues for exercise technique. She is improving with her sit to stand and needed less UE support. She was able to progress gait to single rail with good from, she was unsafe with gait with SPC. Physical Therapy Plan Frequency and Duration Frequency of Treatment 3x/Week Duration of Treatment 12 wks Plan of Care Start Date 07/02/19 Plan of Care End Date 10/02/19 Next Visit Focus/Plan Next Note Type Treatment Note Next Visit Plan gait training and strengthening progression
--- NOTE | 2019-09-06 09:54 | PT.OTN ---
Current Diagnoses Unilateral primary osteoarthritis, right knee (09/06/19) Difficulty in walking, not elsewhere classified (09/06/19) Weakness (09/06/19) Encounter for other orthopedic aftercare (09/06/19) Physical Therapy Treatment Note PT-OP-A Visit Information Start: 03/15/19 12:50 Freq: Status: Active Protocol: Document 09/06/19 09:00 AMB (Rec: 09/06/19 09:14 AMB [id number]) Out-Patient Physical Therapy Visit Information Visit Information Visit Type Treatment Note Visit Start Time 09:00 Visit Stop Time 09:45 Total Visit Minutes 45 Visit Number 20 Number of KNIFER UP Visits 0 PT-OP-B Current Condition Start: 03/15/19 12:50 Freq: Status: Active Protocol: Document 07/02/19 09:30 SAK (Rec: 07/02/19 17:22 SAK [id number]) Current Condition History of Current Condition Onset Date 06/21/19 Current Complaints decrease right knee ROM, strength, mobility History of Current Condition Was scheduled for right TKA but came down with a cold and surgery was re- scheduled and performed . Hospital recovery complicated by nausea and states was limited in ability to participate in PT.Was discharged home yesterday. Hasn't had a chance to do her HEP yet. Treatment Goals Patient/Caregiver Goals Be able to take walks, work in garden, to household activities without pain. Prior Functional Status Baseline Function- ADL's Modified Independent Baseline Function- Mobility Modified Independent Baseline Function- Gait indep without device Baseline Function- Other Gardening, taking walks, housework. 5 stairs to enter, radha railings. 14 stairs to garage , 1 railing. Has raised toilet seat. No grab bars in shower. Plan is to go home at discharge. Current Functional Impairments (Reported) Functional Limitations- ADL's painful Functional Limitations- Mobility/Gait painful, uses FWW (height adjusted today) Functional Limitations- Recreation/ unable Hobbies Personal Factors Other Personal Factors That May Effect patient very anxious. Therapy/Recovery Supportive PT-OP-C Subjective Start: 03/15/19 12:50 Freq: Status: Active Protocol: Document 09/06/19 09:00 AMB (Rec: 09/06/19 09:14 AMB [id number]) OP-PT Subjective Patient Comments Patient Comments Pt reports about 3/10 pain in the knee this morning. Sees Dr. Billings at the end of the month. PT-OP-G Mobility & Gait Start: 03/15/19 12:50 Freq: Status: Active Protocol: Document 07/02/19 09:30 [facility] (Rec: 07/02/19 17:22 SAK [id number]) OP Gait Assessment Gait Gait Assistance Required: Standby Assistance Distance (Feet) 60 Assistive Devices Assistive Device Front Wheeled Walker Orthotic/Prosthetic Devices or Brace: No Gait Deviations General Gait Pattern Decreased Stride Length, Decreased Feet Clearance Factors Limiting Gait Function Factors Limiting Gait Function Limited Range of Motion,Pain Comments Gait Comments Patient required moderate cues for gait sequencing and to allow right knee to bend normally with gait; tends to hold in extension Stair Climbing Evaluation Comments Stair Climbing Comments performed in hospital step-to pattern and at home. Not performed today in PT. PT-OP-K Range of Motion Start: 03/15/19 12:50 Freq: Status: Active Protocol: Document 08/21/19 11:39 GGD (Rec: 08/21/19 11:52 GGD [email or web address]) Knee Goniometric Range of Motion Knee Right Flexion Active (degrees) 114 PT-OP-M Strength Start: 03/15/19 12:50 Freq: Status: Active Protocol: Document 07/02/19 09:30 [facility] (Rec: 07/02/19 17:22 [facility] [id number]) Knee Strength Knee Manual Muscle Testing Right Reason Not Measured Orthopedic Precautions,Pain Comments patient able to do independent SLR and SAQ though with extensor lag of appro 15 deg Left Flexion (S2) 4+ Good+ Extension (L3) 4+ Good+ Ankle/Foot Strength Ankle and Foot Manual Muscle Testing radha Dorsiflexion (L4) 4- Good- Plantarflexion (S1) 4- Good- PT-OP-Q Treatments Start: 03/15/19 12:50 Freq: Status: Active Protocol: Document 09/06/19 09:00 AMB (Rec: 09/06/19 09:54 AMB [email or web address]) Cardio Equipment Recumbent Stepper (Sci-Fit) Duration (Minutes) 10 Resistance 4 Seat Position 12 Other Gr Back support, UE's and LE's Gym Equipment Shuttle Recovery Unilateral Squats Resistance 50# R, Shuttle Recovery Platform Stable Reps/Time 10x 2 Bilateral Squats Resistance 87# Shuttle Recovery Platform Stable Reps/Time 20x Therapeutic Exercises Supine Exercises SLR Reps/Minutes 2x10 Comments advised abdominal bracing with exercise Sidelying Exercises 2 Sidelying Exercise Name hip abduction in sidelying x 5 in supine x 10 Reps/Minutes supine x 10 with cues Comments sidelying 1x5 with physical assist 1 Sidelying Exercise Name clamshell with t band Resistance #2 t band Comments 2x10 Standing Exercises sit to stand Standing Exercise Name sit to stand mat table Reps/Minutes 10 Comments high mat table, cues for no UE Gait Training Gait Activity 2 Description // bars and SPC/rail, single rail Level of Assistance light hand hold Surface smooth Distance/Duration 10'x5 Treatment Focus glute stabilization Comments Pt asked to walk slowly to self-assess when her hip begins to drop and attempt to activate her glutes at that point PT-OP-R Modalities Start: 03/15/19 12:50 Freq: Status: Active Protocol: Document 09/04/19 16:24 GGD (Rec: 09/04/19 16:37 GGD [email or web address]) Hot Pack/Cold Pack Treatment Cold Pack Location R knee Patient Position Hooklying Treatment Duration (minutes) 10 PT-OP-T Assessment and Plan Start: 03/15/19 12:50 Freq: Status: Active Protocol: Document 09/06/19 09:00 AMB (Rec: 09/06/19 09:14 AMB [id number]) Physical Therapy Assessment Assessment Summary Assessment Pt continues to have hip abductor weakness. Nervous about kneeling. Better form with abduction exercises today . Physical Therapy Plan Next Visit Focus/Plan Next Note Type Treatment Note Next Visit Plan gait training and strengthening progression. follow up on stair safety
--- NOTE | 2019-09-06 09:56 | PT.OPPN ---
Current Diagnoses Unilateral primary osteoarthritis, right knee (09/06/19) Difficulty in walking, not elsewhere classified (09/06/19) Weakness (09/06/19) Encounter for other orthopedic aftercare (09/06/19) Physical Therapy Progress Note PT-OP-A Visit Information Start: 03/15/19 12:50 Freq: Status: Active Protocol: Document 09/06/19 09:00 AMB (Rec: 09/06/19 09:14 AMB [id number]) Out-Patient Physical Therapy Visit Information Visit Information Visit Type Treatment Note Visit Start Time 09:00 Visit Stop Time 09:45 Total Visit Minutes 45 Visit Number 20 Number of SHEET ROCK APPLICATOR Visits 0 PT-OP-B Current Condition Start: 03/15/19 12:50 Freq: Status: Active Protocol: Document 07/02/19 09:30 SAK (Rec: 07/02/19 17:22 SAK [id number]) Current Condition History of Current Condition Onset Date 06/21/19 Current Complaints decrease right knee ROM, strength, mobility History of Current Condition Was scheduled for right TKA but came down with a cold and surgery was re- scheduled and performed . Hospital recovery complicated by nausea and states was limited in ability to participate in PT.Was discharged home yesterday. Hasn't had a chance to do her HEP yet. Treatment Goals Patient/Caregiver Goals Be able to take walks, work in garden, to household activities without pain. Prior Functional Status Baseline Function- ADL's Modified Independent Baseline Function- Mobility Modified Independent Baseline Function- Gait indep without device Baseline Function- Other Gardening, taking walks, housework. 5 stairs to enter, radha railings. 14 stairs to garage , 1 railing. Has raised toilet seat. No grab bars in shower. Plan is to go home at discharge. Current Functional Impairments (Reported) Functional Limitations- ADL's painful Functional Limitations- Mobility/Gait painful, uses FWW (height adjusted today) Functional Limitations- Recreation/ unable Hobbies Personal Factors Other Personal Factors That May Effect patient very anxious. Therapy/Recovery Supportive PT-OP-C Subjective Start: 03/15/19 12:50 Freq: Status: Active Protocol: Document 09/06/19 09:00 AMB (Rec: 09/06/19 09:14 AMB [id number]) OP-PT Subjective Patient Comments Patient Comments Pt reports about 3/10 pain in the knee this morning. Sees Dr. Billings at the end of the month. PT-OP-G Mobility & Gait Start: 03/15/19 12:50 Freq: Status: Active Protocol: Document 07/02/19 09:30 SAK (Rec: 07/02/19 17:22 SAK [id number]) OP Gait Assessment Gait Gait Assistance Required: Standby Assistance Distance (Feet) 60 Assistive Devices Assistive Device Front Wheeled Walker Orthotic/Prosthetic Devices or Brace: No Gait Deviations General Gait Pattern Decreased Stride Length, Decreased Feet Clearance Factors Limiting Gait Function Factors Limiting Gait Function Limited Range of Motion,Pain Comments Gait Comments Patient required moderate cues for gait sequencing and to allow right knee to bend normally with gait; tends to hold in extension Stair Climbing Evaluation Comments Stair Climbing Comments performed in hospital step-to pattern and at home. Not performed today in PT. PT-OP-K Range of Motion Start: 03/15/19 12:50 Freq: Status: Active Protocol: Document 08/21/19 11:39 GGD (Rec: 08/21/19 11:52 GGD [email or web address]) Knee Goniometric Range of Motion Knee Measured in Degrees Right Flexion Active (degrees) 114 PT-OP-M Strength Start: 03/15/19 12:50 Freq: Status: Active Protocol: Document 07/02/19 09:30 [facility] (Rec: 07/02/19 17:22 SAK [id number]) Knee Strength Knee Manual Muscle Testing Right Reason Not Measured Orthopedic Precautions,Pain Comments patient able to do independent SLR and SAQ though with extensor lag of appro 15 deg Left Flexion (S2) 4+ Good+ Extension (L3) 4+ Good+ Ankle/Foot Strength Ankle and Foot Manual Muscle Testing radha Dorsiflexion (L4) 4- Good- Plantarflexion (S1) 4- Good- PT-OP-T Assessment and Plan Start: 03/15/19 12:50 Freq: Status: Active Protocol: Document 09/06/19 09:00 AMB (Rec: 09/06/19 09:14 AMB [id number]) Physical Therapy Assessment Goals Five Impairment right LE swelling Short Term Goal (STG) Decrease right LE swelling by 50% STG Duration MET Senior Living Goal (LTG) Minimal right LE swelling LTG Duration MET Four Impairment lower extremity functional scale 30% Short Term Goal (STG) Improve LEFS to at least 50% STG Duration 4 wks Senior Living Goal (LTG) Improve LEFS to at least 75% LTG Duration 12 wks 3 Impairment decreased right knee strength Short Term Goal (STG) right knee strength 3+/5 STG Duration MET Craps Dealer Goal (LTG) right knee strength 4+/5 to improve functional mobility LTG Duration 12 wks 2 Impairment decreased knee ROM Short Term Goal (STG) right knee AROM 5-110 STG Duration MET Craps Dealer Goal (LTG) right knee AROM 0-120 LTG Duration 12 wks 1 Impairment antalgic gait with device Short Term Goal (STG) Patient able to ambulate with minimal limp on level surface with appropriate assistive device 1010: working towards, can do with FWW, but not with SPC STG Duration 4 wks Senior Living Goal (LTG) Patient able to ambulate without asstive device on level and with railing and alternating pattern on stairs without limp LTG Duration 12 wks Assessment Summary Assessment Pt continues to have hip abductor weakness. Nervous about kneeling. Better form with abduction exercises today . Physical Therapy Plan Next Visit Focus/Plan Next Note Type Treatment Note Next Visit Plan gait training and strengthening progression. follow up on stair safety
--- NOTE | 2019-09-11 09:45 | PT.OTN ---
Current Diagnoses Unilateral primary osteoarthritis, right knee (09/11/19) Difficulty in walking, not elsewhere classified (09/11/19) Weakness (09/11/19) Encounter for other orthopedic aftercare (09/11/19) Physical Therapy Treatment Note PT-OP-A Visit Information Start: 03/15/19 12:50 Freq: Status: Active Protocol: Document 09/11/19 09:45 SP (Rec: 09/11/19 10:18 SP [email or web address]) Out-Patient Physical Therapy Visit Information Visit Information Visit Type Treatment Note Visit Start Time 09:07 Visit Stop Time 09:45 Total Visit Minutes 43 Visit Number 21 Number of GROCERY STORE CLERK Visits 2 PT-OP-B Current Condition Start: 03/15/19 12:50 Freq: Status: Active Protocol: Document 07/02/19 09:30 SAK (Rec: 07/02/19 17:22 SAK [id number]) Current Condition History of Current Condition Onset Date 06/21/19 Current Complaints decrease right knee ROM, strength, mobility History of Current Condition Was scheduled for right TKA but came down with a cold and surgery was re- scheduled and performed . Hospital recovery complicated by nausea and states was limited in ability to participate in PT.Was discharged home yesterday. Hasn't had a chance to do her HEP yet. Treatment Goals Patient/Caregiver Goals Be able to take walks, work in garden, to household activities without pain. Prior Functional Status Baseline Function- ADL's Modified Independent Baseline Function- Mobility Modified Independent Baseline Function- Gait indep without device Baseline Function- Other Gardening, taking walks, housework. 5 stairs to enter, radha railings. 14 stairs to garage , 1 railing. Has raised toilet seat. No grab bars in shower. Plan is to go home at discharge. Current Functional Impairments (Reported) Functional Limitations- ADL's painful Functional Limitations- Mobility/Gait painful, uses FWW (height adjusted today) Functional Limitations- Recreation/ unable Hobbies Personal Factors Other Personal Factors That May Effect patient very anxious. Therapy/Recovery Supportive PT-OP-C Subjective Start: 03/15/19 12:50 Freq: Status: Active Protocol: Document 09/11/19 09:45 SP (Rec: 09/11/19 10:18 SP [email or web address]) OP-PT Subjective Patient Comments Patient Comments Pt reports no pain pre PT today, took some tylenol before treatment knowing her knee starts to feel low level pain as day goes on. Pt states is complian with HEP. Sees Dr. Billings at the end of the month. PT-OP-G Mobility & Gait Start: 03/15/19 12:50 Freq: Status: Active Protocol: Document 07/02/19 09:30 SAK (Rec: 07/02/19 17:22 SAK [id number]) OP Gait Assessment Gait Gait Assistance Required: Standby Assistance Distance (Feet) 60 Assistive Devices Assistive Device Front Wheeled Walker Orthotic/Prosthetic Devices or Brace: No Gait Deviations General Gait Pattern Decreased Stride Length, Decreased Feet Clearance Factors Limiting Gait Function Factors Limiting Gait Function Limited Range of Motion,Pain Comments Gait Comments Patient required moderate cues for gait sequencing and to allow right knee to bend normally with gait; tends to hold in extension Stair Climbing Evaluation Comments Stair Climbing Comments performed in hospital step-to pattern and at home. Not performed today in PT. PT-OP-K Range of Motion Start: 03/15/19 12:50 Freq: Status: Active Protocol: Document 08/21/19 11:39 GGD (Rec: 08/21/19 11:52 GGD [email or web address]) Knee Goniometric Range of Motion Knee Right Flexion Active (degrees) 114 PT-OP-M Strength Start: 03/15/19 12:50 Freq: Status: Active Protocol: Document 07/02/19 09:30 SAK (Rec: 07/02/19 17:22 SAK [id number]) Knee Strength Knee Manual Muscle Testing Right Reason Not Measured Orthopedic Precautions,Pain Comments patient able to do independent SLR and SAQ though with extensor lag of appro 15 deg Left Flexion (S2) 4+ Good+ Extension (L3) 4+ Good+ Ankle/Foot Strength Ankle and Foot Manual Muscle Testing radha Dorsiflexion (L4) 4- Good- Plantarflexion (S1) 4- Good- PT-OP-Q Treatments Start: 03/15/19 12:50 Freq: Status: Active Protocol: Document 09/11/19 09:45 SP (Rec: 09/11/19 10:18 SP [email or web address]) Cardio Equipment Recumbent Bicycle Duration (Minutes) 5 Resistance 1 Seat Position 11 Other [employer] Therapeutic Exercises Standing Exercises 1 Standing Exercise Name step ups Side bilateral Reps/Minutes 3x10 Comments 4 step contact support, cued glute facilitation with level pelvis sit to stand Standing Exercise Name sit to stand from chair Reps/Minutes 4 Comments high mat table, required 1 UE support, nose over toes Gait Training Gait Activity 2 Description Side rail 1 UE support at wall Level of Assistance none Surface smooth Distance/Duration 10 ft x2 forward/backward/side stepping Treatment Focus glute stabilization Comments Pt asked to walk slowly to self-assess when her hip begins to drop and attempt to activate her glutes at that point 1 Description Stair management Device Used 2 rails Distance/Duration 4 steps x4 Treatment Focus glut stabilization Comments Cued R glute activation to maintain level pelvis. Ascended and descended forward , pt states at home ususally goes down backward. PT-OP-R Modalities Start: 03/15/19 12:50 Freq: Status: Active Protocol: Document 09/04/19 16:24 GGD (Rec: 09/04/19 16:37 GGD [email or web address]) Hot Pack/Cold Pack Treatment Cold Pack Location R knee Patient Position Hooklying Treatment Duration (minutes) 10 PT-OP-T Assessment and Plan Start: 03/15/19 12:50 Freq: Status: Active Protocol: Document 09/11/19 09:45 SP (Rec: 09/11/19 10:18 SP [email or web address]) Physical Therapy Assessment Assessment Summary Assessment Pt continues to have hip abductor weakness. Improved glut activation post step ups and follow through to stair step over step. Physical Therapy Plan Frequency and Duration Frequency of Treatment 3x/Week Duration of Treatment 12 wks Plan of Care Start Date 07/02/19 Plan of Care End Date 10/02/19 Next Visit Focus/Plan Next Note Type Treatment Note Next Visit Plan gait training and strengthening progression. follow up on stair safety
--- NOTE | 2019-09-14 13:05 | PT.OTN ---
Current Diagnoses Unilateral primary osteoarthritis, right knee (09/14/19) Difficulty in walking, not elsewhere classified (09/14/19) Weakness (09/14/19) Encounter for other orthopedic aftercare (09/14/19) Physical Therapy Treatment Note PT-OP-A Visit Information Start: 03/15/19 12:50 Freq: Status: Active Protocol: Document 09/11/19 09:45 SP (Rec: 09/11/19 10:18 SP [email or web address]) Out-Patient Physical Therapy Visit Information Visit Information Visit Type Treatment Note Visit Start Time 09:07 Visit Stop Time 09:45 Total Visit Minutes 43 Visit Number 21 Number of INFORMATION CONSULTANT Visits 2 PT-OP-B Current Condition Start: 03/15/19 12:50 Freq: Status: Active Protocol: Document 07/02/19 09:30 SAK (Rec: 07/02/19 17:22 SAK [id number]) Current Condition History of Current Condition Onset Date 06/21/19 Current Complaints decrease right knee ROM, strength, mobility History of Current Condition Was scheduled for right TKA but came down with a cold and surgery was re- scheduled and performed . Hospital recovery complicated by nausea and states was limited in ability to participate in PT.Was discharged home yesterday. Hasn't had a chance to do her HEP yet. Treatment Goals Patient/Caregiver Goals Be able to take walks, work in garden, to household activities without pain. Prior Functional Status Baseline Function- ADL's Modified Independent Baseline Function- Mobility Modified Independent Baseline Function- Gait indep without device Baseline Function- Other Gardening, taking walks, housework. 5 stairs to enter, radha railings. 14 stairs to garage , 1 railing. Has raised toilet seat. No grab bars in shower. Plan is to go home at discharge. Current Functional Impairments (Reported) Functional Limitations- ADL's painful Functional Limitations- Mobility/Gait painful, uses FWW (height adjusted today) Functional Limitations- Recreation/ unable Hobbies Personal Factors Other Personal Factors That May Effect patient very anxious. Therapy/Recovery Supportive PT-OP-C Subjective Start: 03/15/19 12:50 Freq: Status: Active Protocol: Document 09/14/19 13:05 SP (Rec: 09/14/19 14:28 SP [email or web address]) OP-PT Subjective Patient Comments Patient Comments Pt reports no pain pre PT today, took some tylenol before treatment. Pt states is complian with HEP. Sees Dr. Billings at the end of the month. PT-OP-G Mobility & Gait Start: 03/15/19 12:50 Freq: Status: Active Protocol: Document 07/02/19 09:30 [facility] (Rec: 07/02/19 17:22 SAK [id number]) OP Gait Assessment Gait Gait Assistance Required: Standby Assistance Distance (Feet) 60 Assistive Devices Assistive Device Front Wheeled Walker Orthotic/Prosthetic Devices or Brace: No Gait Deviations General Gait Pattern Decreased Stride Length, Decreased Feet Clearance Factors Limiting Gait Function Factors Limiting Gait Function Limited Range of Motion,Pain Comments Gait Comments Patient required moderate cues for gait sequencing and to allow right knee to bend normally with gait; tends to hold in extension Stair Climbing Evaluation Comments Stair Climbing Comments performed in hospital step-to pattern and at home. Not performed today in PT. PT-OP-K Range of Motion Start: 03/15/19 12:50 Freq: Status: Active Protocol: Document 09/14/19 13:05 SP (Rec: 09/14/19 14:28 SP [email or web address]) Knee Goniometric Range of Motion Knee Right Patient Position Supine Flexion Active (degrees) 118 Flexion Passive (degrees) 126 Extension Active (degrees) 0 PT-OP-M Strength Start: 03/15/19 12:50 Freq: Status: Active Protocol: Document 07/02/19 09:30 [facility] (Rec: 07/02/19 17:22 [facility] [id number]) Knee Strength Knee Manual Muscle Testing Right Reason Not Measured Orthopedic Precautions,Pain Comments patient able to do independent SLR and SAQ though with extensor lag of appro 15 deg Left Flexion (S2) 4+ Good+ Extension (L3) 4+ Good+ Ankle/Foot Strength Ankle and Foot Manual Muscle Testing radha Dorsiflexion (L4) 4- Good- Plantarflexion (S1) 4- Good- PT-OP-Q Treatments Start: 03/15/19 12:50 Freq: Status: Active Protocol: Document 09/14/19 13:05 SP (Rec: 09/14/19 14:28 SP [email or web address]) Therapeutic Exercises Supine Exercises bridge Reps/Minutes 3x5-8 Comments glut squeeze hip ABD Supine Exercise Name see sidelying Side right SLR Reps/Minutes 2x5 Comments advised abdominal bracing with exercise and maintain knee extension Prone Exercises hip ER/IR Side bilateral Reps/Minutes 3x5 Comments cues for lower leg positioning HS curl Side bilateral Reps/Minutes 3x10 Sidelying Exercises 2 Sidelying Exercise Name hip abduction in sidelying x 5 in supine x 10 Reps/Minutes supine x 10 with cues Comments sidelying 1x5 with physical assist Standing Exercises hip flex stretch Side bilateral Equipment Used bar/counter (HEP) Reps/Minutes 30 sec hold x3 Comments allow back heel to come up, front thigh stretch Gait Training Gait Activity 2 Description Side rail 1 UE support at wall Level of Assistance none Surface smooth Distance/Duration 10 ft x2 forward/backward/side stepping Treatment Focus glute stabilization Comments Pt asked to walk slowly to self-assess when her hip begins to drop and attempt to activate her glutes at that point PT-OP-R Modalities Start: 03/15/19 12:50 Freq: Status: Active Protocol: Document 09/04/19 16:24 GGD (Rec: 09/04/19 16:37 GGD [email or web address]) Hot Pack/Cold Pack Treatment Cold Pack Location R knee Patient Position Hooklying Treatment Duration (minutes) 10 PT-OP-T Assessment and Plan Start: 03/15/19 12:50 Freq: Status: Active Protocol: Document 09/14/19 13:05 SP (Rec: 09/14/19 14:28 SP [email or web address]) Physical Therapy Assessment Assessment Summary Assessment Pt continues to have hip abductor weakness. Improved glut activation post step ups and follow through to stair step over step. Physical Therapy Plan Frequency and Duration Frequency of Treatment 3x/Week Duration of Treatment 12 wks Plan of Care Start Date 07/02/19 Plan of Care End Date 10/02/19 Next Visit Focus/Plan Next Note Type Treatment Note Next Visit Plan gait training and strengthening progression. follow up on stair safety
--- NOTE | 2019-09-18 09:43 | PT.OTN ---
Current Diagnoses Unilateral primary osteoarthritis, right knee (09/18/19) Difficulty in walking, not elsewhere classified (09/18/19) Weakness (09/18/19) Encounter for other orthopedic aftercare (09/18/19) Physical Therapy Treatment Note PT-OP-A Visit Information Start: 03/15/19 12:50 Freq: Status: Active Protocol: Document 09/18/19 10:44 SP (Rec: 09/18/19 11:01 SP [email or web address]) Out-Patient Physical Therapy Visit Information Visit Information Visit Type Treatment Note Visit Start Time 09:03 Visit Stop Time 09:43 Total Visit Minutes 40 Visit Number 22 Number of ENGINE SETTER Visits 3 PT-OP-B Current Condition Start: 03/15/19 12:50 Freq: Status: Active Protocol: Document 07/02/19 09:30 SAK (Rec: 07/02/19 17:22 SAK [id number]) Current Condition History of Current Condition Onset Date 06/21/19 Current Complaints decrease right knee ROM, strength, mobility History of Current Condition Was scheduled for right TKA but came down with a cold and surgery was re- scheduled and performed . Hospital recovery complicated by nausea and states was limited in ability to participate in PT.Was discharged home yesterday. Hasn't had a chance to do her HEP yet. Treatment Goals Patient/Caregiver Goals Be able to take walks, work in garden, to household activities without pain. Prior Functional Status Baseline Function- ADL's Modified Independent Baseline Function- Mobility Modified Independent Baseline Function- Gait indep without device Baseline Function- Other Gardening, taking walks, housework. 5 stairs to enter, radha railings. 14 stairs to garage , 1 railing. Has raised toilet seat. No grab bars in shower. Plan is to go home at discharge. Current Functional Impairments (Reported) Functional Limitations- ADL's painful Functional Limitations- Mobility/Gait painful, uses FWW (height adjusted today) Functional Limitations- Recreation/ unable Hobbies Personal Factors Other Personal Factors That May Effect patient very anxious. Therapy/Recovery Supportive PT-OP-C Subjective Start: 03/15/19 12:50 Freq: Status: Active Protocol: Document 09/18/19 10:44 SP (Rec: 09/18/19 11:01 SP [email or web address]) OP-PT Subjective Patient Comments Patient Comments Pt reports no pain pre PT. Pt stated she is using her SPC in the house more but does notice is also reaching/using furniture to grab for supoprt. Does use her FWW when out of the house. Patient Reported Progress Improving PT-OP-G Mobility & Gait Start: 03/15/19 12:50 Freq: Status: Active Protocol: Document 07/02/19 09:30 [facility] (Rec: 07/02/19 17:22 SAK [id number]) OP Gait Assessment Gait Gait Assistance Required: Standby Assistance Distance (Feet) 60 Assistive Devices Assistive Device Front Wheeled Walker Orthotic/Prosthetic Devices or Brace: No Gait Deviations General Gait Pattern Decreased Stride Length, Decreased Feet Clearance Factors Limiting Gait Function Factors Limiting Gait Function Limited Range of Motion,Pain Comments Gait Comments Patient required moderate cues for gait sequencing and to allow right knee to bend normally with gait; tends to hold in extension Stair Climbing Evaluation Comments Stair Climbing Comments performed in hospital step-to pattern and at home. Not performed today in PT. PT-OP-K Range of Motion Start: 03/15/19 12:50 Freq: Status: Active Protocol: Document 09/14/19 13:05 SP (Rec: 09/14/19 14:28 SP [email or web address]) Knee Goniometric Range of Motion Knee Right Patient Position Supine Flexion Active (degrees) 118 Flexion Passive (degrees) 126 Extension Active (degrees) 0 PT-OP-M Strength Start: 03/15/19 12:50 Freq: Status: Active Protocol: Document 07/02/19 09:30 [facility] (Rec: 07/02/19 17:22 [facility] [id number]) Knee Strength Knee Manual Muscle Testing Right Reason Not Measured Orthopedic Precautions,Pain Comments patient able to do independent SLR and SAQ though with extensor lag of appro 15 deg Left Flexion (S2) 4+ Good+ Extension (L3) 4+ Good+ Ankle/Foot Strength Ankle and Foot Manual Muscle Testing radha Dorsiflexion (L4) 4- Good- Plantarflexion (S1) 4- Good- PT-OP-Q Treatments Start: 03/15/19 12:50 Freq: Status: Active Protocol: Document 09/18/19 10:44 SP (Rec: 09/18/19 11:01 SP [email or web address]) Gym Equipment Shuttle Recovery Bilateral Squats Resistance 50 # 2x10, 75# x10 Shuttle Recovery Platform Stable Therapeutic Exercises Prone Exercises HS curl Side bilateral Reps/Minutes 3x10 Sidelying Exercises 1 Sidelying Exercise Name clamshells Side bilateral Resistance Yellow theraloop Reps/Minutes 3x15 reps Standing Exercises squats Standing Exercise Name squat to draft roller picker cone Equipment Used SPC in E Reps/Minutes 10 x4 laps approx 10 ft Comments cued for trunk hip hinge to decreased retro wt shift, self recovery Gait Training Gait Activity 3 Description forward/side stepping Device Used SPC in [facility] Level of Assistance SBA Surface level Distance/Duration 10 ft Treatment Focus COG over OLE, glut activation on R for level pelvis PT-OP-R Modalities Start: 03/15/19 12:50 Freq: Status: Active Protocol: Document 09/04/19 16:24 GGD (Rec: 09/04/19 16:37 GGD [email or web address]) Hot Pack/Cold Pack Treatment Cold Pack Location R knee Patient Position Hooklying Treatment Duration (minutes) 10 PT-OP-T Assessment and Plan Start: 03/15/19 12:50 Freq: Status: Active Protocol: Document 09/18/19 10:44 SP (Rec: 09/18/19 11:01 SP [email or web address]) Physical Therapy Assessment Assessment Summary Assessment Pt continues to experience R abductor weakness with demonstration of hip depression during transition of LLE movement side stepping> forward/backward, cued for glut activation on R and SPC support in [facility], improved with light [employer] contact through RUE. Good balance during squat picking up object from floor with the support of SPC in [facility] , retro wt shift x1 with self recovery. Educated awareness of hip hinge trunk forward with reaching posterior squat with improvement noted. Encouraged patient to use FWW in house secondary to increased proper gait form and use SPC next to the counter for support as needed during side/forward/back stepping exercises for safety. Physical Therapy Plan Frequency and Duration Frequency of Treatment 3x/Week Duration of Treatment 12 wks Plan of Care Start Date 07/02/19 Plan of Care End Date 10/02/19 Therapeutic Interventions Therapeutic Interventions Aquatic Therapy,Balance Training,Gait Training,Home Exercise Program,Joint Mobilizations,Manual Therapy, Neuromuscular Re-education, Patient/Caregiver Education, Self-Care/Home Management,Soft Tissue Mobilization,Taping, Therapeutic Activities, Therapeutic Exercises Next Visit Focus/Plan Next Note Type Treatment Note Next Visit Plan gait training and strengthening progression. follow up on stair safety
--- NOTE | 2019-09-20 09:47 | PT.OTN ---
Current Diagnoses Unilateral primary osteoarthritis, right knee (09/20/19) Difficulty in walking, not elsewhere classified (09/20/19) Weakness (09/20/19) Encounter for other orthopedic aftercare (09/20/19) Physical Therapy Treatment Note PT-OP-A Visit Information Start: 03/15/19 12:50 Freq: Status: Active Protocol: Document 09/20/19 09:00 AMB (Rec: 09/20/19 09:21 AMB [id number]) Out-Patient Physical Therapy Visit Information Visit Information Visit Type Treatment Note Visit Start Time 09:05 Visit Stop Time 09:45 Total Visit Minutes 40 Visit Number 23 Number of DIP PAINTER Visits 0 PT-OP-B Current Condition Start: 03/15/19 12:50 Freq: Status: Active Protocol: Document 07/02/19 09:30 SAK (Rec: 07/02/19 17:22 SAK [id number]) Current Condition History of Current Condition Onset Date 06/21/19 Current Complaints decrease right knee ROM, strength, mobility History of Current Condition Was scheduled for right TKA but came down with a cold and surgery was re- scheduled and performed . Hospital recovery complicated by nausea and states was limited in ability to participate in PT.Was discharged home yesterday. Hasn't had a chance to do her HEP yet. Treatment Goals Patient/Caregiver Goals Be able to take walks, work in garden, to household activities without pain. Prior Functional Status Baseline Function- ADL's Modified Independent Baseline Function- Mobility Modified Independent Baseline Function- Gait indep without device Baseline Function- Other Gardening, taking walks, housework. 5 stairs to enter, radha railings. 14 stairs to garage , 1 railing. Has raised toilet seat. No grab bars in shower. Plan is to go home at discharge. Current Functional Impairments (Reported) Functional Limitations- ADL's painful Functional Limitations- Mobility/Gait painful, uses FWW (height adjusted today) Functional Limitations- Recreation/ unable Hobbies Personal Factors Other Personal Factors That May Effect patient very anxious. Therapy/Recovery Supportive PT-OP-C Subjective Start: 03/15/19 12:50 Freq: Status: Active Protocol: Document 09/20/19 09:00 AMB (Rec: 09/20/19 09:21 AMB [id number]) OP-PT Subjective Patient Comments Patient Comments Pt notices knee pain at the end of the day. Has been using the walker in the house now after being told to last visit. PT-OP-G Mobility & Gait Start: 03/15/19 12:50 Freq: Status: Active Protocol: Document 07/02/19 09:30 [facility] (Rec: 07/02/19 17:22 SAK [id number]) OP Gait Assessment Gait Gait Assistance Required: Standby Assistance Distance (Feet) 60 Assistive Devices Assistive Device Front Wheeled Walker Orthotic/Prosthetic Devices or Brace: No Gait Deviations General Gait Pattern Decreased Stride Length, Decreased Feet Clearance Factors Limiting Gait Function Factors Limiting Gait Function Limited Range of Motion,Pain Comments Gait Comments Patient required moderate cues for gait sequencing and to allow right knee to bend normally with gait; tends to hold in extension Stair Climbing Evaluation Comments Stair Climbing Comments performed in hospital step-to pattern and at home. Not performed today in PT. PT-OP-K Range of Motion Start: 03/15/19 12:50 Freq: Status: Active Protocol: Document 09/14/19 13:05 SP (Rec: 09/14/19 14:28 SP [email or web address]) Knee Goniometric Range of Motion Knee Right Patient Position Supine Flexion Active (degrees) 118 Flexion Passive (degrees) 126 Extension Active (degrees) 0 PT-OP-M Strength Start: 03/15/19 12:50 Freq: Status: Active Protocol: Document 07/02/19 09:30 [facility] (Rec: 07/02/19 17:22 SAK [id number]) Knee Strength Knee Manual Muscle Testing Right Reason Not Measured Orthopedic Precautions,Pain Comments patient able to do independent SLR and SAQ though with extensor lag of appro 15 deg Left Flexion (S2) 4+ Good+ Extension (L3) 4+ Good+ Ankle/Foot Strength Ankle and Foot Manual Muscle Testing radha Dorsiflexion (L4) 4- Good- Plantarflexion (S1) 4- Good- PT-OP-Q Treatments Start: 03/15/19 12:50 Freq: Status: Active Protocol: Document 09/20/19 09:00 AMB (Rec: 09/20/19 09:25 AMB [id number]) Cardio Equipment Recumbent Stepper (Sci-Fit) Duration (Minutes) 7 Resistance 6 Gym Equipment Shuttle Recovery Unilateral Squats Details 50# 2x10 Shuttle Recovery Platform Stable Bilateral Squats Resistance 75# 2x10 Shuttle Recovery Platform Stable Therapeutic Exercises Sidelying Exercises 1 Sidelying Exercise Name douglas Side bilateral Resistance Yellow theraloop Reps/Minutes 3x15 reps Gait Training Gait Activity 3 Description forward/side stepping Device Used SPC in LUE Level of Assistance SBA Surface level Distance/Duration 10 ft Treatment Focus COG over OLE, glut activation on R for level pelvis PT-OP-R Modalities Start: 03/15/19 12:50 Freq: Status: Active Protocol: Document 09/04/19 16:24 GGD (Rec: 09/04/19 16:37 GGD [email or web address]) Hot Pack/Cold Pack Treatment Cold Pack Location R knee Patient Position Hooklying Treatment Duration (minutes) 10 PT-OP-T Assessment and Plan Start: 03/15/19 12:50 Freq: Status: Active Protocol: Document 09/20/19 09:00 AMB (Rec: 09/20/19 09:21 AMB [id number]) Physical Therapy Assessment Assessment Summary Assessment Pt's hip weakness continues to be more of an issue for her gait than her knee. Physical Therapy Plan Next Visit Focus/Plan Next Note Type Treatment Note Next Visit Plan gait training and strengthening progression. follow up on stair safety
--- NOTE | 2019-09-25 09:45 | PT.OTN ---
Current Diagnoses Unilateral primary osteoarthritis, right knee (09/25/19) Difficulty in walking, not elsewhere classified (09/25/19) Weakness (09/25/19) Encounter for other orthopedic aftercare (09/25/19) Physical Therapy Treatment Note PT-OP-A Visit Information Start: 03/15/19 12:50 Freq: Status: Active Protocol: Document 09/25/19 09:45 SP (Rec: 09/25/19 11:33 SP [email or web address]) Out-Patient Physical Therapy Visit Information Visit Information Visit Type Treatment Note Visit Start Time 08:54 Visit Stop Time 09:45 Total Visit Minutes 51 Visit Number 24 Number of COMMERCIAL ESTIMATOR Visits 1 PT-OP-B Current Condition Start: 03/15/19 12:50 Freq: Status: Active Protocol: Document 07/02/19 09:30 SAK (Rec: 07/02/19 17:22 SAK [id number]) Current Condition History of Current Condition Onset Date 06/21/19 Current Complaints decrease right knee ROM, strength, mobility History of Current Condition Was scheduled for right TKA but came down with a cold and surgery was re- scheduled and performed . Hospital recovery complicated by nausea and states was limited in ability to participate in PT.Was discharged home yesterday. Hasn't had a chance to do her HEP yet. Treatment Goals Patient/Caregiver Goals Be able to take walks, work in garden, to household activities without pain. Prior Functional Status Baseline Function- ADL's Modified Independent Baseline Function- Mobility Modified Independent Baseline Function- Gait indep without device Baseline Function- Other Gardening, taking walks, housework. 5 stairs to enter, radha railings. 14 stairs to garage , 1 railing. Has raised toilet seat. No grab bars in shower. Plan is to go home at discharge. Current Functional Impairments (Reported) Functional Limitations- ADL's painful Functional Limitations- Mobility/Gait painful, uses FWW (height adjusted today) Functional Limitations- Recreation/ unable Hobbies Personal Factors Other Personal Factors That May Effect patient very anxious. Therapy/Recovery Supportive PT-OP-C Subjective Start: 03/15/19 12:50 Freq: Status: Active Protocol: Document 09/25/19 09:45 SP (Rec: 09/25/19 11:33 SP [email or web address]) OP-PT Subjective Patient Comments Patient Comments Pt stated her L hip is hurting today, saw base physician to assess and pretty sore, might be getting an injection in L hip. Pain reported 3/10 R knee and L hip. Pt stated compliant with HEP. PT-OP-G Mobility & Gait Start: 03/15/19 12:50 Freq: Status: Active Protocol: Document 07/02/19 09:30 [facility] (Rec: 07/02/19 17:22 SAK [id number]) OP Gait Assessment Gait Gait Assistance Required: Standby Assistance Distance (Feet) 60 Assistive Devices Assistive Device Front Wheeled Walker Orthotic/Prosthetic Devices or Brace: No Gait Deviations General Gait Pattern Decreased Stride Length, Decreased Feet Clearance Factors Limiting Gait Function Factors Limiting Gait Function Limited Range of Motion,Pain Comments Gait Comments Patient required moderate cues for gait sequencing and to allow right knee to bend normally with gait; tends to hold in extension Stair Climbing Evaluation Comments Stair Climbing Comments performed in hospital step-to pattern and at home. Not performed today in PT. PT-OP-K Range of Motion Start: 03/15/19 12:50 Freq: Status: Active Protocol: Document 09/14/19 13:05 SP (Rec: 09/14/19 14:28 SP [email or web address]) Knee Goniometric Range of Motion Knee Right Patient Position Supine Flexion Active (degrees) 118 Flexion Passive (degrees) 126 Extension Active (degrees) 0 PT-OP-M Strength Start: 03/15/19 12:50 Freq: Status: Active Protocol: Document 07/02/19 09:30 [facility] (Rec: 07/02/19 17:22 [facility] [id number]) Knee Strength Knee Manual Muscle Testing Right Reason Not Measured Orthopedic Precautions,Pain Comments patient able to do independent SLR and SAQ though with extensor lag of appro 15 deg Left Flexion (S2) 4+ Good+ Extension (L3) 4+ Good+ Ankle/Foot Strength Ankle and Foot Manual Muscle Testing radha Dorsiflexion (L4) 4- Good- Plantarflexion (S1) 4- Good- PT-OP-Q Treatments Start: 03/15/19 12:50 Freq: Status: Active Protocol: Document 09/25/19 09:45 SP (Rec: 09/25/19 11:33 SP [email or web address]) Cardio Equipment Recumbent Bicycle Duration (Minutes) 8 Resistance 6 Gym Equipment Shuttle Recovery Unilateral Squats Details 50# 2x10 Shuttle Recovery Platform Stable Bilateral Squats Resistance 75# 2x10 Shuttle Recovery Platform Stable Therapeutic Exercises Sidelying Exercises 2 Sidelying Exercise Name ABD Side right Resistance AROM Reps/Minutes x4 Comments cued L side alignment and hip into ext (neutral) 1 Sidelying Exercise Name clamshells Side bilateral Resistance Yellow theraloop Reps/Minutes 3x15 reps Standing Exercises sit to stand Equipment Used 21 raised table Reps/Minutes 3x5 Comments cued hip hinge UE contact thighs intially, cross chest Gait Training Gait Activity stair mgt Description ascend/descend 4 stairs Device Used LHR and RUE SPC Level of Assistance SBA Treatment Focus safety stair mgt Comments step to gait, challenged R LE leading weakness recommended continue step to leading LLE as has been, descending RHR and SPC in LUE step to or step over step fair B alignment. [ End ] 3 Description forward Device Used SPC in LUE Level of Assistance SBA Surface level Distance/Duration 90 ft Treatment Focus glut activation R for level pelvis Comments cued heel press/glut tightening R with LLE advancement and proper patterning SPC 2 pt gait PT-OP-R Modalities Start: 03/15/19 12:50 Freq: Status: Active Protocol: Document 09/04/19 16:24 GGD (Rec: 09/04/19 16:37 GGD [email or web address]) Hot Pack/Cold Pack Treatment Cold Pack Location R knee Patient Position Hooklying Treatment Duration (minutes) 10 PT-OP-T Assessment and Plan Start: 03/15/19 12:50 Freq: Status: Active Protocol: Document 09/25/19 09:45 SP (Rec: 09/25/19 11:33 SP [email or web address]) Physical Therapy Assessment Assessment Summary Assessment Pt continues to demonstrate L hip depression during LLE advancement and ascending/ descending stairs. Pt is able to ascend/descend stair step to gait with L HR and SPC in RUE, trialed step over step but challenged with R LE WB to ascend to next step, no LOB. Cued at this time to continue step to and will work in PT on step over step for safety. Physical Therapy Plan Frequency and Duration Frequency of Treatment 3x/Week Duration of Treatment 12 wks Plan of Care Start Date 07/02/19 Plan of Care End Date 10/02/19 Therapeutic Interventions Therapeutic Interventions Aquatic Therapy,Balance Training,Gait Training,Home Exercise Program,Joint Mobilizations,Manual Therapy, Neuromuscular Re-education, Patient/Caregiver Education, Self-Care/Home Management,Soft Tissue Mobilization,Taping, Therapeutic Activities, Therapeutic Exercises Next Visit Focus/Plan Next Note Type Treatment Note Next Visit Plan gait training and strengthening progression. follow up on stair safety
--- NOTE | 2019-09-27 16:05 | PT.OTN ---
Current Diagnoses Unilateral primary osteoarthritis, right knee (09/27/19) Difficulty in walking, not elsewhere classified (09/27/19) Weakness (09/27/19) Encounter for other orthopedic aftercare (09/27/19) Physical Therapy Treatment Note PT-OP-A Visit Information Start: 03/15/19 12:50 Freq: Status: Active Protocol: Document 09/27/19 09:00 AMB (Rec: 09/27/19 09:12 AMB [id number]) Out-Patient Physical Therapy Visit Information Visit Information Visit Type Treatment Note Visit Note 05/07 Visit Start Time 09:00 Visit Stop Time 09:45 Total Visit Minutes 45 Visit Number 25 Number of ORAL SURGERY PHYSICIAN Visits 0 PT-OP-B Current Condition Start: 03/15/19 12:50 Freq: Status: Active Protocol: Document 07/02/19 09:30 SAK (Rec: 07/02/19 17:22 SAK [id number]) Current Condition History of Current Condition Onset Date 06/21/19 Current Complaints decrease right knee ROM, strength, mobility History of Current Condition Was scheduled for right TKA but came down with a cold and surgery was re- scheduled and performed . Hospital recovery complicated by nausea and states was limited in ability to participate in PT.Was discharged home yesterday. Hasn't had a chance to do her HEP yet. Treatment Goals Patient/Caregiver Goals Be able to take walks, work in garden, to household activities without pain. Prior Functional Status Baseline Function- ADL's Modified Independent Baseline Function- Mobility Modified Independent Baseline Function- Gait indep without device Baseline Function- Other Gardening, taking walks, housework. 5 stairs to enter, radha railings. 14 stairs to garage , 1 railing. Has raised toilet seat. No grab bars in shower. Plan is to go home at discharge. Current Functional Impairments (Reported) Functional Limitations- ADL's painful Functional Limitations- Mobility/Gait painful, uses FWW (height adjusted today) Functional Limitations- Recreation/ unable Hobbies Personal Factors Other Personal Factors That May Effect patient very anxious. Therapy/Recovery Supportive PT-OP-C Subjective Start: 03/15/19 12:50 Freq: Status: Active Protocol: Document 09/27/19 09:00 AMB (Rec: 09/27/19 09:12 AMB [id number]) OP-PT Subjective Patient Comments Patient Comments Pt states she is getting an X- ray of her hip next week. PT-OP-G Mobility & Gait Start: 03/15/19 12:50 Freq: Status: Active Protocol: Document 07/02/19 09:30 SAK (Rec: 07/02/19 17:22 SAK [id number]) OP Gait Assessment Gait Gait Assistance Required: Standby Assistance Distance (Feet) 60 Assistive Devices Assistive Device Front Wheeled Walker Orthotic/Prosthetic Devices or Brace: No Gait Deviations General Gait Pattern Decreased Stride Length, Decreased Feet Clearance Factors Limiting Gait Function Factors Limiting Gait Function Limited Range of Motion,Pain Comments Gait Comments Patient required moderate cues for gait sequencing and to allow right knee to bend normally with gait; tends to hold in extension Stair Climbing Evaluation Comments Stair Climbing Comments performed in hospital step-to pattern and at home. Not performed today in PT. PT-OP-K Range of Motion Start: 03/15/19 12:50 Freq: Status: Active Protocol: Document 09/14/19 13:05 SP (Rec: 09/14/19 14:28 SP [email or web address]) Knee Goniometric Range of Motion Knee Right Patient Position Supine Flexion Active (degrees) 118 Flexion Passive (degrees) 126 Extension Active (degrees) 0 PT-OP-M Strength Start: 03/15/19 12:50 Freq: Status: Active Protocol: Document 07/02/19 09:30 [facility] (Rec: 07/02/19 17:22 SAK [id number]) Knee Strength Knee Manual Muscle Testing Right Reason Not Measured Orthopedic Precautions,Pain Comments patient able to do independent SLR and SAQ though with extensor lag of appro 15 deg Left Flexion (S2) 4+ Good+ Extension (L3) 4+ Good+ Ankle/Foot Strength Ankle and Foot Manual Muscle Testing radha Dorsiflexion (L4) 4- Good- Plantarflexion (S1) 4- Good- PT-OP-Q Treatments Start: 03/15/19 12:50 Freq: Status: Active Protocol: Document 09/27/19 09:00 AMB (Rec: 09/27/19 09:12 AMB [id number]) Cardio Equipment Recumbent Stepper (Sci-Fit) Duration (Minutes) 7 Resistance 6 Gym Equipment Shuttle Recovery Unilateral Squats Details 50# 2x10 Shuttle Recovery Platform Stable Bilateral Squats Resistance 75# 2x10 Shuttle Recovery Platform Stable Therapeutic Exercises Sidelying Exercises 1 Sidelying Exercise Name douglas Nichols bilateral Resistance Yellow theraloop Reps/Minutes 3x15 reps Gait Training Gait Activity stair mgt Description ascend/descend 4 stairs x4 sets Device Used L HR and RUE SPC Level of Assistance SBA Treatment Focus safety education Comments step to gait, challenged R LE leading weakness recommended continue step to leading LLE as has been, descending RHR and SPC in LUE step to or step over step fair B alignment. 3 Description forward Device Used SPC in LUE Level of Assistance SBA Surface level Distance/Duration 90 ft Treatment Focus glut activation R for level pelvis Comments cued heel press/glut tightening R with LLE advancement and proper patterning SPC 2 pt gait PT-OP-R Modalities Start: 03/15/19 12:50 Freq: Status: Active Protocol: Document 09/04/19 16:24 GGD (Rec: 09/04/19 16:37 GGD [email or web address]) Hot Pack/Cold Pack Treatment Cold Pack Location R knee Patient Position Hooklying Treatment Duration (minutes) 10 PT-OP-T Assessment and Plan Start: 03/15/19 12:50 Freq: Status: Active Protocol: Document 09/27/19 09:00 AMB (Rec: 09/27/19 16:05 AMB [email or web address]) Physical Therapy Assessment Assessment Summary Assessment Pt is continuing to notice fatigue with extended walking, likely due to her continued gait deviation due to hip weakness. While she continues to do her HEP, and her walking without FWW is improved, would continue to recommend using FWW for all gait. Physical Therapy Plan Next Visit Focus/Plan Next Note Type Treatment Note Next Visit Plan gait training and strengthening progression. follow up on stair safety
--- NOTE | 2019-10-02 09:45 | PT.OTN ---
Current Diagnoses Unilateral primary osteoarthritis, right knee (10/02/19) Difficulty in walking, not elsewhere classified (10/02/19) Weakness (10/02/19) Encounter for other orthopedic aftercare (10/02/19) Physical Therapy Treatment Note PT-OP-A Visit Information Start: 03/15/19 12:50 Freq: Status: Active Protocol: Document 10/02/19 09:45 SP (Rec: 10/02/19 11:36 SP [email or web address]) Out-Patient Physical Therapy Visit Information Visit Information Visit Type Treatment Note Visit Note 06/06 Visit Start Time 08:56 Visit Stop Time 09:45 Total Visit Minutes 49 Visit Number 26 Number of HEAD OF BUSINESS DEVELOPMENT Visits 1 PT-OP-B Current Condition Start: 03/15/19 12:50 Freq: Status: Active Protocol: Document 07/02/19 09:30 SAK (Rec: 07/02/19 17:22 SAK [id number]) Current Condition History of Current Condition Onset Date 06/21/19 Current Complaints decrease right knee ROM, strength, mobility History of Current Condition Was scheduled for right TKA but came down with a cold and surgery was re- scheduled and performed . Hospital recovery complicated by nausea and states was limited in ability to participate in PT.Was discharged home yesterday. Hasn't had a chance to do her HEP yet. Treatment Goals Patient/Caregiver Goals Be able to take walks, work in garden, to household activities without pain. Prior Functional Status Baseline Function- ADL's Modified Independent Baseline Function- Mobility Modified Independent Baseline Function- Gait indep without device Baseline Function- Other Gardening, taking walks, housework. 5 stairs to enter, radha railings. 14 stairs to garage , 1 railing. Has raised toilet seat. No grab bars in shower. Plan is to go home at discharge. Current Functional Impairments (Reported) Functional Limitations- ADL's painful Functional Limitations- Mobility/Gait painful, uses FWW (height adjusted today) Functional Limitations- Recreation/ unable Hobbies Personal Factors Other Personal Factors That May Effect patient very anxious. Therapy/Recovery Supportive PT-OP-C Subjective Start: 03/15/19 12:50 Freq: Status: Active Protocol: Document 10/02/19 09:45 SP (Rec: 10/02/19 11:36 SP [email or web address]) OP-PT Subjective Patient Comments Patient Comments Pt stated is seeing a new orthopedic tomorrow at [facility] orthopedics for her L hip pain, will be getting an xray. Is doing her supine exercises and bike at home, pressure over post R knee and 3/10 pain posterolateral L hip pre PT. She stated was able to get out to see the garden yesterday. Patient Reported Progress Improving PT-OP-G Mobility & Gait Start: 03/15/19 12:50 Freq: Status: Active Protocol: Document 07/02/19 09:30 SAK (Rec: 07/02/19 17:22 SAK [id number]) OP Gait Assessment Gait Gait Assistance Required: Standby Assistance Distance (Feet) 60 Assistive Devices Assistive Device Front Wheeled Walker Orthotic/Prosthetic Devices or Brace: No Gait Deviations General Gait Pattern Decreased Stride Length, Decreased Feet Clearance Factors Limiting Gait Function Factors Limiting Gait Function Limited Range of Motion,Pain Comments Gait Comments Patient required moderate cues for gait sequencing and to allow right knee to bend normally with gait; tends to hold in extension Stair Climbing Evaluation Comments Stair Climbing Comments performed in hospital step-to pattern and at home. Not performed today in PT. PT-OP-K Range of Motion Start: 03/15/19 12:50 Freq: Status: Active Protocol: Document 10/02/19 09:45 SP (Rec: 10/02/19 11:36 SP [email or web address]) Knee Goniometric Range of Motion Knee Right Patient Position Supine Flexion Active (degrees) 129 Flexion Passive (degrees) 132 Extension Active (degrees) 0 Left Patient Position Supine Flexion Active (degrees) 134 PT-OP-M Strength Start: 03/15/19 12:50 Freq: Status: Active Protocol: Document 07/02/19 09:30 SAK (Rec: 07/02/19 17:22 SAK [id number]) Knee Strength Knee Manual Muscle Testing Right Reason Not Measured Orthopedic Precautions,Pain Comments patient able to do independent SLR and SAQ though with extensor lag of appro 15 deg Left Flexion (S2) 4+ Good+ Extension (L3) 4+ Good+ Ankle/Foot Strength Ankle and Foot Manual Muscle Testing radha Dorsiflexion (L4) 4- Good- Plantarflexion (S1) 4- Good- PT-OP-Q Treatments Start: 03/15/19 12:50 Freq: Status: Active Protocol: Document 10/02/19 09:45 SP (Rec: 10/02/19 11:36 SP [email or web address]) Cardio Equipment Recumbent Stepper (Sci-Fit) Duration (Minutes) 7 Resistance 6 Gym Equipment Shuttle Recovery Unilateral Squats Details 50# 3x10 Shuttle Recovery Platform Stable Bilateral Squats Resistance 75# 3x10 Shuttle Recovery Platform Stable Therapeutic Exercises Supine Exercises bridge Equipment Used Red theraloop Reps/Minutes x10 Comments slow control, neutral pelvis Sidelying Exercises 1 Sidelying Exercise Name douglas Side bilateral Resistance red theraloop Reps/Minutes 3x15 reps Standing Exercises sit to stand Equipment Used 18 height chair (21 table not available) Reps/Minutes x5 use of L UE support Comments cued hip hinge UE contact thighs intially, cross chest Gait Training Gait Activity stair mgt Description ascend/descend 4 stairs x4 sets Device Used L HR and RUE SPC Level of Assistance SBA Treatment Focus safety education Comments step to gait, challenged R LE leading weakness recommended continue step to leading LLE as has been, descending RHR and SPC in LUE step to or step over step fair B alignment. 3 Description forward Device Used SPC in LUE Level of Assistance SBA Surface level Distance/Duration 90 ft Treatment Focus glut activation R for level pelvis Comments cued heel press/glut tightening R with LLE advancement and proper patterning SPC 2 pt gait (SPC in RUE pattern with LLE) PT-OP-R Modalities Start: 03/15/19 12:50 Freq: Status: Active Protocol: Document 09/04/19 16:24 GGD (Rec: 09/04/19 16:37 GGD [email or web address]) Hot Pack/Cold Pack Treatment Cold Pack Location R knee Patient Position Hooklying Treatment Duration (minutes) 10 PT-OP-T Assessment and Plan Start: 03/15/19 12:50 Freq: Status: Active Protocol: Document 10/02/19 09:45 SP (Rec: 10/02/19 11:36 SP [email or web address]) Physical Therapy Assessment Assessment Summary Assessment Pt is continuing to notice fatigue with extended walking, likely due to her continued gait deviation due to hip weakness. While she continues to do her HEP, and her walking without FWW is improved, would continue to recommend using FWW for all gait. Pt feels and demonstratess most stable step to gait ascending L HR and SPC in RUE, descending perfers step to gait states feels more stable but is able to perform step over step with no deviations. Pt has made 11 deg gains in AROM R knee since 09/14/19. POC end date is today, will follow up with PT next to update POC. Pt stated no pain just muscle tiring in L hip and R knee end of tx. Physical Therapy Plan Frequency and Duration Frequency of Treatment 3x/Week Duration of Treatment 12 wks Plan of Care Start Date 07/02/19 Plan of Care End Date 10/02/19 Therapeutic Interventions Therapeutic Interventions Aquatic Therapy,Balance Training,Gait Training,Home Exercise Program,Joint Mobilizations,Manual Therapy, Neuromuscular Re-education, Patient/Caregiver Education, Self-Care/Home Management,Soft Tissue Mobilization,Taping, Therapeutic Activities, Therapeutic Exercises Next Visit Focus/Plan Next Note Type Treatment Note Next Visit Plan Update POC, continue gait training and strengthen progression. Pt has Ortho appt tomorrow for L hip pain.
--- NOTE | 2019-10-04 12:41 | PT.OTN ---
Current Diagnoses Unilateral primary osteoarthritis, right knee (10/04/19) Difficulty in walking, not elsewhere classified (10/04/19) Weakness (10/04/19) Encounter for other orthopedic aftercare (10/04/19) Physical Therapy Treatment Note PT-OP-A Visit Information Start: 03/15/19 12:50 Freq: Status: Active Protocol: Document 10/04/19 09:00 AMB (Rec: 10/04/19 12:56 AMB [email or web address]) Out-Patient Physical Therapy Visit Information Visit Information Visit Type Progress Note Visit Note 12/07 Visit Start Time 09:00 Visit Stop Time 09:45 Total Visit Minutes 45 Visit Number 27 Number of CROCODILE FARMER Visits 0 PT-OP-B Current Condition Start: 03/15/19 12:50 Freq: Status: Active Protocol: Document 07/02/19 09:30 SAK (Rec: 07/02/19 17:22 SAK [id number]) Current Condition History of Current Condition Onset Date 06/21/19 Current Complaints decrease right knee ROM, strength, mobility History of Current Condition Was scheduled for right TKA but came down with a cold and surgery was re- scheduled and performed . Hospital recovery complicated by nausea and states was limited in ability to participate in PT.Was discharged home yesterday. Hasn't had a chance to do her HEP yet. Treatment Goals Patient/Caregiver Goals Be able to take walks, work in garden, to household activities without pain. Prior Functional Status Baseline Function- ADL's Modified Independent Baseline Function- Mobility Modified Independent Baseline Function- Gait indep without device Baseline Function- Other Gardening, taking walks, housework. 5 stairs to enter, radha railings. 14 stairs to garage , 1 railing. Has raised toilet seat. No grab bars in shower. Plan is to go home at discharge. Current Functional Impairments (Reported) Functional Limitations- ADL's painful Functional Limitations- Mobility/Gait painful, uses FWW (height adjusted today) Functional Limitations- Recreation/ unable Hobbies Personal Factors Other Personal Factors That May Effect patient very anxious. Therapy/Recovery Supportive PT-OP-C Subjective Start: 03/15/19 12:50 Freq: Status: Active Protocol: Document 10/04/19 09:00 AMB (Rec: 10/04/19 12:56 AMB [email or web address]) OP-PT Subjective Patient Comments Patient Comments Per pt report saw ortho who stated that she did not have much arthritis in the hip and that the muscles were weak. He did not want to do injections or surgical intervention. Patient Questionnaires Lower Extremity Functional Scale LEFS Score 56 LEFS Impairment 20 to 39% Impaired (Score 48- 62) PT-OP-G Mobility & Gait Start: 03/15/19 12:50 Freq: Status: Active Protocol: Document 07/02/19 09:30 SAK (Rec: 07/02/19 17:22 SAK [id number]) OP Gait Assessment Gait Gait Assistance Required: Standby Assistance Distance (Feet) 60 Assistive Devices Assistive Device Front Wheeled Walker Orthotic/Prosthetic Devices or Brace: No Gait Deviations General Gait Pattern Decreased Stride Length, Decreased Feet Clearance Factors Limiting Gait Function Factors Limiting Gait Function Limited Range of Motion,Pain Comments Gait Comments Patient required moderate cues for gait sequencing and to allow right knee to bend normally with gait; tends to hold in extension Stair Climbing Evaluation Comments Stair Climbing Comments performed in hospital step-to pattern and at home. Not performed today in PT. PT-OP-K Range of Motion Start: 03/15/19 12:50 Freq: Status: Active Protocol: Document 10/02/19 09:45 SP (Rec: 10/02/19 11:36 SP [email or web address]) Knee Goniometric Range of Motion Knee Right Patient Position Supine Flexion Active (degrees) 129 Flexion Passive (degrees) 132 Extension Active (degrees) 0 Left Patient Position Supine Flexion Active (degrees) 134 PT-OP-M Strength Start: 03/15/19 12:50 Freq: Status: Active Protocol: Document 07/02/19 09:30 SAK (Rec: 07/02/19 17:22 SAK [id number]) Knee Strength Knee Manual Muscle Testing Right Reason Not Measured Orthopedic Precautions,Pain Comments patient able to do independent SLR and SAQ though with extensor lag of appro 15 deg Left Flexion (S2) 4+ Good+ Extension (L3) 4+ Good+ Ankle/Foot Strength Ankle and Foot Manual Muscle Testing radha Dorsiflexion (L4) 4- Good- Plantarflexion (S1) 4- Good- PT-OP-Q Treatments Start: 03/15/19 12:50 Freq: Status: Active Protocol: Document 10/04/19 09:00 AMB (Rec: 10/04/19 12:56 AMB [email or web address]) Cardio Equipment Recumbent Stepper (Sci-Fit) Duration (Minutes) 7 Resistance 6 Gym Equipment Shuttle Recovery Bilateral Squats Resistance 75# 3x10 Shuttle Recovery Platform Stable Therapeutic Exercises Sidelying Exercises 1 Sidelying Exercise Name clamshells Side bilateral Resistance red theraloop Reps/Minutes 3x15 reps Standing Exercises 1 Standing Exercise Name step ups- lateral and fwd Reps/Minutes 2x10 Comments 6 step Gait Training Gait Activity 3 Description forward Device Used SPC in RUE Level of Assistance SBA Surface level Distance/Duration 90 ft Treatment Focus glut activation R for level pelvis Comments cued heel press/glut tightening R with LLE advancement and proper patterning SPC 2 pt gait (SPC in RUE pattern with LLE) PT-OP-R Modalities Start: 03/15/19 12:50 Freq: Status: Active Protocol: Document 09/04/19 16:24 GGD (Rec: 09/04/19 16:37 GGD [email or web address]) Hot Pack/Cold Pack Treatment Cold Pack Location R knee Patient Position Hooklying Treatment Duration (minutes) 10 PT-OP-T Assessment and Plan Start: 03/15/19 12:50 Freq: Status: Active Protocol: Document 10/04/19 09:00 AMB (Rec: 10/04/19 09:10 AMB [id number]) Physical Therapy Assessment Goals Five Impairment right LE swelling Short Term Goal (STG) Decrease right LE swelling by 50% STG Duration MET Jail Goal (LTG) Minimal right LE swelling LTG Duration MET Four Impairment lower extremity functional scale 30% Short Term Goal (STG) Improve LEFS to at least 50% STG Duration MET Colored Leather Setter Goal (LTG) Improve LEFS to at least 75% LTG Duration 12 wks 3 Impairment decreased right knee strength Short Term Goal (STG) right knee strength 3+/5 STG Duration MET Colored Leather Setter Goal (LTG) right knee strength 4+/5 to improve functional mobility LTG Duration 12 wks 2 Impairment decreased knee ROM Short Term Goal (STG) right knee AROM 5-110 STG Duration MET Jail Goal (LTG) right knee AROM 0-120 LTG Duration MET 1 Impairment antalgic gait with device Short Term Goal (STG) Patient able to ambulate with minimal limp on level surface with appropriate assistive device 10/04: working towards , can do with FWW, but not with SPC STG Duration 4 wks Colored Leather Setter Goal (LTG) Patient able to ambulate without asstive device on level and with railing and alternating pattern on stairs without limp 10/04: pt prefers step to pattern LTG Duration 12 wks Assessment Summary Assessment Chetna's ROM has improved well with PT. Her knee strength is also showing improvement, but her hip abductor strength remains poor, and this very much impacts her gait. Before surgery she was using a SPC, but reports dragging her leg . She continues to show hip weakness when using a SPC, so we have been continuing to ask her to use her walker. She will benefit from PT to continue gait training and strengthening, with the goal of her walking safely with her cane. Physical Therapy Plan Frequency and Duration Frequency of Treatment 2x/Week Duration of Treatment 6 weeks Plan of Care Start Date 10/04/19 Plan of Care End Date 11/15/19 Next Visit Focus/Plan Next Note Type Treatment Note Next Visit Plan Progress gait, stair, and strengthening training.
--- NOTE | 2019-10-04 12:41 | PT.OPPOC ---
Current Diagnoses Unilateral primary osteoarthritis, right knee (10/04/19) Difficulty in walking, not elsewhere classified (10/04/19) Weakness (10/04/19) Encounter for other orthopedic aftercare (10/04/19) Visit Care Team Role Provider Type Chrissy Starr MD Primary Care Provider Non-Staff Specialty: Medical Address: [address] [place] [address], [id number] Email: Ander Billings MD Attending Provider Physician Specialty: Orthopedic Surgery Address: [address] [place] [address], [id number] Email: [email or web address] Plan Of Care PT-OP-T Assessment and Plan Start: 03/15/19 12:50 Freq: Status: Active Protocol: Document 10/04/19 09:00 AMB (Rec: 10/04/19 09:10 AMB [id number]) Physical Therapy Assessment Goals Five Impairment right LE swelling Short Term Goal (STG) Decrease right LE swelling by 50% STG Duration MET Edge Stripper Goal (LTG) Minimal right LE swelling LTG Duration MET Four Impairment lower extremity functional scale 30% Short Term Goal (STG) Improve LEFS to at least 50% STG Duration MET Edge Stripper Goal (LTG) Improve LEFS to at least 75% LTG Duration 12 wks 3 Impairment decreased right knee strength Short Term Goal (STG) right knee strength 3+/5 STG Duration MET Custodial Goal (LTG) right knee strength 4+/5 to improve functional mobility LTG Duration 12 wks 2 Impairment decreased knee ROM Short Term Goal (STG) right knee AROM 5-110 STG Duration MET Edge Stripper Goal (LTG) right knee AROM 0-120 LTG Duration MET 1 Impairment antalgic gait with device Short Term Goal (STG) Patient able to ambulate with minimal limp on level surface with appropriate assistive device 10/04: working towards , can do with FWW, but not with SPC STG Duration 4 wks Edge Stripper Goal (LTG) Patient able to ambulate without asstive device on level and with railing and alternating pattern on stairs without limp 10/04: pt prefers step to pattern LTG Duration 12 wks Assessment Summary Assessment Chetna's ROM has improved well with PT. Her knee strength is also showing improvement, but her hip abductor strength remains poor, and this very much impacts her gait. Before surgery she was using a SPC, but reports dragging her leg . She continues to show hip weakness when using a SPC, so we have been continuing to ask her to use her walker. She will benefit from PT to continue gait training and strengthening, with the goal of her walking safely with her cane. Physical Therapy Plan Frequency and Duration Frequency of Treatment 2x/Week Duration of Treatment 6 weeks Plan of Care Start Date 10/04/19 Plan of Care End Date 11/15/19 Next Visit Focus/Plan Next Note Type Treatment Note Next Visit Plan Progress gait, stair, and strengthening training. Plan of Care Dates Plan of Care Start Date 10/04/19 Plan of Care End Date 11/15/19
--- NOTE | 2019-10-09 09:46 | PT.OTN ---
Current Diagnoses Unilateral primary osteoarthritis, right knee (10/09/19) Difficulty in walking, not elsewhere classified (10/09/19) Weakness (10/09/19) Encounter for other orthopedic aftercare (10/09/19) Physical Therapy Treatment Note PT-OP-A Visit Information Start: 03/15/19 12:50 Freq: Status: Active Protocol: Document 10/09/19 09:04 SP (Rec: 10/09/19 09:46 SP [id number]) Out-Patient Physical Therapy Visit Information Visit Information Visit Type Treatment Note Visit Start Time 09:04 Visit Stop Time 09:45 Total Visit Minutes 41 Visit Number 28 Number of GAS ANALYST Visits 1 PT-OP-B Current Condition Start: 03/15/19 12:50 Freq: Status: Active Protocol: Document 07/02/19 09:30 SAK (Rec: 07/02/19 17:22 SAK [id number]) Current Condition History of Current Condition Onset Date 06/21/19 Current Complaints decrease right knee ROM, strength, mobility History of Current Condition Was scheduled for right TKA but came down with a cold and surgery was re- scheduled and performed . Hospital recovery complicated by nausea and states was limited in ability to participate in PT.Was discharged home yesterday. Hasn't had a chance to do her HEP yet. Treatment Goals Patient/Caregiver Goals Be able to take walks, work in garden, to household activities without pain. Prior Functional Status Baseline Function- ADL's Modified Independent Baseline Function- Mobility Modified Independent Baseline Function- Gait indep without device Baseline Function- Other Gardening, taking walks, housework. 5 stairs to enter, radha railings. 14 stairs to garage , 1 railing. Has raised toilet seat. No grab bars in shower. Plan is to go home at discharge. Current Functional Impairments (Reported) Functional Limitations- ADL's painful Functional Limitations- Mobility/Gait painful, uses FWW (height adjusted today) Functional Limitations- Recreation/ unable Hobbies Personal Factors Other Personal Factors That May Effect patient very anxious. Therapy/Recovery Supportive PT-OP-C Subjective Start: 03/15/19 12:50 Freq: Status: Active Protocol: Document 10/09/19 09:04 SP (Rec: 10/09/19 09:46 SP [id number]) OP-PT Subjective Patient Comments Patient Comments Pt reported no discomfort but over the weekend had some soreness. Has been walking mostly with FWW as instructed to decrease over pressure on hip and knee. PT-OP-G Mobility & Gait Start: 03/15/19 12:50 Freq: Status: Active Protocol: Document 07/02/19 09:30 [facility] (Rec: 07/02/19 17:22 [facility] [id number]) OP Gait Assessment Gait Gait Assistance Required: Standby Assistance Distance (Feet) 60 Assistive Devices Assistive Device Front Wheeled Walker Orthotic/Prosthetic Devices or Brace: No Gait Deviations General Gait Pattern Decreased Stride Length, Decreased Feet Clearance Factors Limiting Gait Function Factors Limiting Gait Function Limited Range of Motion,Pain Comments Gait Comments Patient required moderate cues for gait sequencing and to allow right knee to bend normally with gait; tends to hold in extension Stair Climbing Evaluation Comments Stair Climbing Comments performed in hospital step-to pattern and at home. Not performed today in PT. PT-OP-K Range of Motion Start: 03/15/19 12:50 Freq: Status: Active Protocol: Document 10/02/19 09:45 SP (Rec: 10/02/19 11:36 SP [id number]) Knee Goniometric Range of Motion Knee Right Patient Position Supine Flexion Active (degrees) 129 Flexion Passive (degrees) 132 Extension Active (degrees) 0 Left Patient Position Supine Flexion Active (degrees) 134 PT-OP-M Strength Start: 03/15/19 12:50 Freq: Status: Active Protocol: Document 07/02/19 09:30 [facility] (Rec: 07/02/19 17:22 [facility] [id number]) Knee Strength Knee Manual Muscle Testing Right Reason Not Measured Orthopedic Precautions,Pain Comments patient able to do independent SLR and SAQ though with extensor lag of appro 15 deg Left Flexion (S2) 4+ Good+ Extension (L3) 4+ Good+ Ankle/Foot Strength Ankle and Foot Manual Muscle Testing radha Dorsiflexion (L4) 4- Good- Plantarflexion (S1) 4- Good- PT-OP-Q Treatments Start: 03/15/19 12:50 Freq: Status: Active Protocol: Document 10/09/19 09:04 SP (Rec: 10/09/19 09:46 SP [id number]) Cardio Equipment Recumbent Elliptical ([employer]) Duration (Minutes) 8 Resistance 3 Seat Position 8 Gym Equipment Shuttle Recovery Unilateral Squats Details 50# 3x10 Shuttle Recovery Platform Stable Reps/Time 2x10 Bilateral Squats Resistance 75# 3x10 Shuttle Recovery Platform Stable Reps/Time 32 x10, Y Therloop around knees Therapeutic Exercises Standing Exercises hip ext/abd Side bilateral Resistance AROM Equipment Used rail Reps/Minutes 2x10 each direction each LE Comments cued for LLE decreased hip f lee compensation during ABD squats Resistance AROM Equipment Used rail Reps/Minutes x10 heel raises Side bilateral Resistance AROM Equipment Used rail Reps/Minutes x10 Gait Training Gait Activity stair mgt Description ascend/descend Device Used L HR and RUE SPC Level of Assistance SBA Distance/Duration 4 stair x4 Treatment Focus safety education Comments step to gait, challenged R LE leading weakness recommended continue step to leading LLE as has been, descending RHR and SPC in LUE step to or step over step fair B alignment. 3 Description forward Device Used SPC in RUE Level of Assistance SBA Surface level Distance/Duration 205 ft Treatment Focus glut activation R for level pelvis Comments cued heel press/glut tightening R with LLE advancement and proper patterning SPC 2 pt gait (SPC in RUE pattern with LLE) PT-OP-R Modalities Start: 03/15/19 12:50 Freq: Status: Active Protocol: Document 09/04/19 16:24 GGD (Rec: 09/04/19 16:37 GGD [id number]) Hot Pack/Cold Pack Treatment Cold Pack Location R knee Patient Position Hooklying Treatment Duration (minutes) 10 PT-OP-T Assessment and Plan Start: 03/15/19 12:50 Freq: Status: Active Protocol: Document 10/09/19 09:04 SP (Rec: 10/09/19 09:46 SP [id number]) Physical Therapy Assessment Goals Five Impairment right LE swelling Short Term Goal (STG) Decrease right LE swelling by 50% STG Duration MET Intermediate Goal (LTG) Minimal right LE swelling LTG Duration MET Four Impairment lower extremity functional scale 30% Short Term Goal (STG) Improve LEFS to at least 50% STG Duration MET Intermediate Goal (LTG) Improve LEFS to at least 75% LTG Duration 12 wks 3 Impairment decreased right knee strength Short Term Goal (STG) right knee strength 3+/5 STG Duration MET Agricultural Appraiser Goal (LTG) right knee strength 4+/5 to improve functional mobility LTG Duration 12 wks 2 Impairment decreased knee ROM Short Term Goal (STG) right knee AROM 5-110 STG Duration MET Agricultural Appraiser Goal (LTG) right knee AROM 0-120 LTG Duration MET 1 Impairment antalgic gait with device Short Term Goal (STG) Patient able to ambulate with minimal limp on level surface with appropriate assistive device 10/04: working towards , can do with FWW, but not with SPC STG Duration 4 wks Agricultural Appraiser Goal (LTG) Patient able to ambulate without asstive device on level and with railing and alternating pattern on stairs without limp 10/04: pt prefers step to pattern LTG Duration 12 wks Assessment Summary Assessment Tx focused on strengthening, gait using SPC, and stair mgt. Cued glut facilitation during LLE SLS RLE hip ext and abd. Pt reported muscle tiring but no pain. Physical Therapy Plan Frequency and Duration Frequency of Treatment 2x/Week Duration of Treatment 6 weeks Plan of Care Start Date 10/04/19 Plan of Care End Date 11/15/19 Therapeutic Interventions Therapeutic Interventions Aquatic Therapy,Balance Training,Gait Training,Home Exercise Program,Joint Mobilizations,Manual Therapy, Neuromuscular Re-education, Patient/Caregiver Education, Self-Care/Home Management,Soft Tissue Mobilization,Taping, Therapeutic Activities, Therapeutic Exercises Next Visit Focus/Plan Next Note Type Treatment Note Next Visit Plan Review HEP standing perfrormed today. Progress gait, stair, and strengthening training.
--- NOTE | 2019-10-11 09:47 | PT.OTN ---
Current Diagnoses Unilateral primary osteoarthritis, right knee (10/11/19) Difficulty in walking, not elsewhere classified (10/11/19) Weakness (10/11/19) Encounter for other orthopedic aftercare (10/11/19) Physical Therapy Treatment Note PT-OP-A Visit Information Start: 03/15/19 12:50 Freq: Status: Active Protocol: Document 10/11/19 09:00 AMB (Rec: 10/11/19 09:23 AMB [id number]) Out-Patient Physical Therapy Visit Information Visit Information Visit Type Treatment Note Visit Start Time 09:03 Visit Stop Time 09:45 Total Visit Minutes 42 Visit Number 29 Number of CONTRACT POST OFFICE CLERK Visits 0 PT-OP-B Current Condition Start: 03/15/19 12:50 Freq: Status: Active Protocol: Document 07/02/19 09:30 SAK (Rec: 07/02/19 17:22 SAK [id number]) Current Condition History of Current Condition Onset Date 06/21/19 Current Complaints decrease right knee ROM, strength, mobility History of Current Condition Was scheduled for right TKA but came down with a cold and surgery was re- scheduled and performed . Hospital recovery complicated by nausea and states was limited in ability to participate in PT.Was discharged home yesterday. Hasn't had a chance to do her HEP yet. Treatment Goals Patient/Caregiver Goals Be able to take walks, work in garden, to household activities without pain. Prior Functional Status Baseline Function- ADL's Modified Independent Baseline Function- Mobility Modified Independent Baseline Function- Gait indep without device Baseline Function- Other Gardening, taking walks, housework. 5 stairs to enter, radha railings. 14 stairs to garage , 1 railing. Has raised toilet seat. No grab bars in shower. Plan is to go home at discharge. Current Functional Impairments (Reported) Functional Limitations- ADL's painful Functional Limitations- Mobility/Gait painful, uses FWW (height adjusted today) Functional Limitations- Recreation/ unable Hobbies Personal Factors Other Personal Factors That May Effect patient very anxious. Therapy/Recovery Supportive PT-OP-C Subjective Start: 03/15/19 12:50 Freq: Status: Active Protocol: Document 10/11/19 09:00 AMB (Rec: 10/11/19 09:23 AMB [id number]) OP-PT Subjective Patient Comments Patient Comments Pt reports she has been using the cane in the kitchen. She does feel that her knee gets sore in the afternoon. PT-OP-G Mobility & Gait Start: 03/15/19 12:50 Freq: Status: Active Protocol: Document 07/02/19 09:30 SAK (Rec: 07/02/19 17:22 SAK [id number]) OP Gait Assessment Gait Gait Assistance Required: Standby Assistance Distance (Feet) 60 Assistive Devices Assistive Device Front Wheeled Walker Orthotic/Prosthetic Devices or Brace: No Gait Deviations General Gait Pattern Decreased Stride Length, Decreased Feet Clearance Factors Limiting Gait Function Factors Limiting Gait Function Limited Range of Motion,Pain Comments Gait Comments Patient required moderate cues for gait sequencing and to allow right knee to bend normally with gait; tends to hold in extension Stair Climbing Evaluation Comments Stair Climbing Comments performed in hospital step-to pattern and at home. Not performed today in PT. PT-OP-K Range of Motion Start: 03/15/19 12:50 Freq: Status: Active Protocol: Document 10/02/19 09:45 SP (Rec: 10/02/19 11:36 SP [email or web address]) Knee Goniometric Range of Motion Knee Right Patient Position Supine Flexion Active (degrees) 129 Flexion Passive (degrees) 132 Extension Active (degrees) 0 Left Patient Position Supine Flexion Active (degrees) 134 PT-OP-M Strength Start: 03/15/19 12:50 Freq: Status: Active Protocol: Document 07/02/19 09:30 SAK (Rec: 07/02/19 17:22 SAK [id number]) Knee Strength Knee Manual Muscle Testing Right Reason Not Measured Orthopedic Precautions,Pain Comments patient able to do independent SLR and SAQ though with extensor lag of appro 15 deg Left Flexion (S2) 4+ Good+ Extension (L3) 4+ Good+ Ankle/Foot Strength Ankle and Foot Manual Muscle Testing radha Dorsiflexion (L4) 4- Good- Plantarflexion (S1) 4- Good- PT-OP-Q Treatments Start: 03/15/19 12:50 Freq: Status: Active Protocol: Document 10/11/19 09:00 AMB (Rec: 10/11/19 09:23 AMB [id number]) Cardio Equipment Recumbent Elliptical ([employer]) Duration (Minutes) 8 Resistance 5 Seat Position 8 Gym Equipment Shuttle Recovery Unilateral Squats Details 50# 3x10 Shuttle Recovery Platform Stable Reps/Time 2x10 Bilateral Squats Resistance 75# 3x10 Shuttle Recovery Platform Stable Reps/Time 3 x10, Y Therloop around knees Therapeutic Exercises Sidelying Exercises 1 Sidelying Exercise Name douglas Side bilateral Resistance red theraloop Reps/Minutes 3x15 reps Gait Training Gait Activity stair mgt Description ascend/descend Device Used L HR and RUE SPC Level of Assistance SBA Distance/Duration 4 stair x4 Treatment Focus safety education Comments step to gait, challenged R LE leading weakness recommended continue step to leading LLE as has been, descending RHR and SPC in LUE step to or step over step fair B alignment. 3 Description forward Device Used SPC in RUE Level of Assistance SBA Surface level Distance/Duration 205 ft Treatment Focus glut activation R for level pelvis Comments cued heel press/glut tightening R with LLE advancement and proper patterning SPC 2 pt gait (SPC in RUE pattern with LLE) PT-OP-R Modalities Start: 03/15/19 12:50 Freq: Status: Active Protocol: Document 09/04/19 16:24 GGD (Rec: 09/04/19 16:37 GGD [id number]) Hot Pack/Cold Pack Treatment Cold Pack Location R knee Patient Position Hooklying Treatment Duration (minutes) 10 PT-OP-T Assessment and Plan Start: 03/15/19 12:50 Freq: Status: Active Protocol: Document 10/11/19 09:00 AMB (Rec: 10/11/19 09:46 AMB [id number]) Physical Therapy Assessment Assessment Summary Assessment Continued SPC training. Gave pt ok to continue using SPC in kitchen, short distances in home only, must continue to use FWW in community. Physical Therapy Plan Next Visit Focus/Plan Next Note Type Treatment Note Next Visit Plan Review HEP: standing perfrormed today. Progress gait, stair, and strengthening training.
--- NOTE | 2019-10-16 09:45 | PT.OTN ---
Current Diagnoses Unilateral primary osteoarthritis, right knee (10/16/19) Difficulty in walking, not elsewhere classified (10/16/19) Weakness (10/16/19) Encounter for other orthopedic aftercare (10/16/19) Physical Therapy Treatment Note PT-OP-A Visit Information Start: 03/15/19 12:50 Freq: Status: Active Protocol: Document 10/16/19 09:03 SP (Rec: 10/16/19 09:45 SP [id number]) Out-Patient Physical Therapy Visit Information Visit Information Visit Type Treatment Note Visit Start Time 09:03 Visit Stop Time 09:45 Total Visit Minutes 42 Visit Number 30 Number of POULTRY PINNER Visits 1 PT-OP-B Current Condition Start: 03/15/19 12:50 Freq: Status: Active Protocol: Document 07/02/19 09:30 SAK (Rec: 07/02/19 17:22 SAK [id number]) Current Condition History of Current Condition Onset Date 06/21/19 Current Complaints decrease right knee ROM, strength, mobility History of Current Condition Was scheduled for right TKA but came down with a cold and surgery was re- scheduled and performed . Hospital recovery complicated by nausea and states was limited in ability to participate in PT.Was discharged home yesterday. Hasn't had a chance to do her HEP yet. Treatment Goals Patient/Caregiver Goals Be able to take walks, work in garden, to household activities without pain. Prior Functional Status Baseline Function- ADL's Modified Independent Baseline Function- Mobility Modified Independent Baseline Function- Gait indep without device Baseline Function- Other Gardening, taking walks, housework. 5 stairs to enter, radha railings. 14 stairs to garage , 1 railing. Has raised toilet seat. No grab bars in shower. Plan is to go home at discharge. Current Functional Impairments (Reported) Functional Limitations- ADL's painful Functional Limitations- Mobility/Gait painful, uses FWW (height adjusted today) Functional Limitations- Recreation/ unable Hobbies Personal Factors Other Personal Factors That May Effect patient very anxious. Therapy/Recovery Supportive PT-OP-C Subjective Start: 03/15/19 12:50 Freq: Status: Active Protocol: Document 10/16/19 09:03 SP (Rec: 10/16/19 09:45 SP [id number]) OP-PT Subjective Patient Comments Patient Comments Pt reported I have one more week of PT and doing her exercises learned and walking short distance in kitches with SPC. My L hip still hurt at PT-OP-E Functional Tests Start: 03/15/19 12:50 Freq: Status: Active Protocol: Document 10/16/19 09:46 SP (Rec: 10/16/19 09:47 SP [id number]) Functional Tests 6 Minute Walk Test Distance 532 Device Used SPC in RUE Comments cuing for R hip glut activation to decreased pelvic depression, 1 stop rest PT-OP-G Mobility & Gait Start: 03/15/19 12:50 Freq: Status: Active Protocol: Document 07/02/19 09:30 SAK (Rec: 07/02/19 17:22 SAK [id number]) OP Gait Assessment Gait Gait Assistance Required: Standby Assistance Distance (Feet) 60 Assistive Devices Assistive Device Front Wheeled Walker Orthotic/Prosthetic Devices or Brace: No Gait Deviations General Gait Pattern Decreased Stride Length, Decreased Feet Clearance Factors Limiting Gait Function Factors Limiting Gait Function Limited Range of Motion,Pain Comments Gait Comments Patient required moderate cues for gait sequencing and to allow right knee to bend normally with gait; tends to hold in extension Stair Climbing Evaluation Comments Stair Climbing Comments performed in hospital step-to pattern and at home. Not performed today in PT. PT-OP-K Range of Motion Start: 03/15/19 12:50 Freq: Status: Active Protocol: Document 10/02/19 09:45 SP (Rec: 10/02/19 11:36 SP [id number]) Knee Goniometric Range of Motion Knee Right Patient Position Supine Flexion Active (degrees) 129 Flexion Passive (degrees) 132 Extension Active (degrees) 0 Left Patient Position Supine Flexion Active (degrees) 134 PT-OP-M Strength Start: 03/15/19 12:50 Freq: Status: Active Protocol: Document 07/02/19 09:30 SAK (Rec: 07/02/19 17:22 SAK [id number]) Knee Strength Knee Manual Muscle Testing Right Reason Not Measured Orthopedic Precautions,Pain Comments patient able to do independent SLR and SAQ though with extensor lag of appro 15 deg Left Flexion (S2) 4+ Good+ Extension (L3) 4+ Good+ Ankle/Foot Strength Ankle and Foot Manual Muscle Testing radha Dorsiflexion (L4) 4- Good- Plantarflexion (S1) 4- Good- PT-OP-Q Treatments Start: 03/15/19 12:50 Freq: Status: Active Protocol: Document 10/16/19 09:03 SP (Rec: 10/16/19 09:45 SP [id number]) Cardio Equipment Recumbent Bicycle Duration (Minutes) 5 Resistance 4 Seat Position 5 Therapeutic Exercises Standing Exercises hip ext/abd Side bilateral Resistance AROM Equipment Used rail Reps/Minutes 2x10 each direction each LE Comments cued for LLE decreased hip f lee compensation during ABD sit to stand Equipment Used 18 height chair (21 table not available) Reps/Minutes x2 with out UE, x2 use of L UE support Comments cued hip hinge UE contact thighs intially, cross chest heel raise Equipment Used rail (counter/chair H home) Reps/Minutes 3x10 Gait Training Gait Activity stair mgt Description ascend/descend Device Used L HR and RUE SPC Level of Assistance SBA Distance/Duration 4 stair x4 Treatment Focus safety education Comments step to gait, challenged R LE leading weakness recommended continue step to leading LLE as has been, descending RHR and SPC in LUE step to or step over step fair B alignment. 3 Description forward Device Used SPC in RUE Level of Assistance SBA Surface level Distance/Duration 532 ft Treatment Focus glut activation R for level pelvis Comments cued heel press/glut tightening R with LLE advancement and proper patterning SPC 2 pt gait (SPC in RUE pattern with LLE) Able to complete 6MWT. PT-OP-R Modalities Start: 03/15/19 12:50 Freq: Status: Active Protocol: Document 09/04/19 16:24 GGD (Rec: 09/04/19 16:37 GGD [email or web address]) Hot Pack/Cold Pack Treatment Cold Pack Location R knee Patient Position Hooklying Treatment Duration (minutes) 10 PT-OP-T Assessment and Plan Start: 03/15/19 12:50 Freq: Status: Active Protocol: Document 10/16/19 09:03 SP (Rec: 10/16/19 09:45 SP [id number]) Physical Therapy Assessment Goals Five Impairment right LE swelling Short Term Goal (STG) Decrease right LE swelling by 50% STG Duration MET Junior Engineer Goal (LTG) Minimal right LE swelling LTG Duration MET Four Impairment lower extremity functional scale 30% Short Term Goal (STG) Improve LEFS to at least 50% STG Duration MET Nursing Home Goal (LTG) Improve LEFS to at least 75% LTG Duration 12 wks 3 Impairment decreased right knee strength Short Term Goal (STG) right knee strength 3+/5 STG Duration MET Junior Engineer Goal (LTG) right knee strength 4+/5 to improve functional mobility LTG Duration 12 wks 2 Impairment decreased knee ROM Short Term Goal (STG) right knee AROM 5-110 STG Duration MET Nursing Home Goal (LTG) right knee AROM 0-120 LTG Duration MET 1 Impairment antalgic gait with device Short Term Goal (STG) Patient able to ambulate with minimal limp on level surface with appropriate assistive device 10/04: working towards , can do with FWW, but not with SPC STG Duration 4 wks Nursing Home Goal (LTG) Patient able to ambulate without asstive device on level and with railing and alternating pattern on stairs without limp 10/04: pt prefers step to pattern LTG Duration 12 wks Assessment Summary Assessment Tx focused on standing HEP with occasional cuing for slow muscular control and recall 3 /4. Pt was able to complete sit to stand x2 reps with no UE support then required L UE for remaining 2 reps. Assessed 6MWT 532 ft to assess endurance with SPC (RUE). Pt prefers step to gait on stairs but is able to complete step over step, she states still walks backwards coming down at home doesn't feel safe forward, especially last step. I feel have improved alot since being in PT. Physical Therapy Plan Frequency and Duration Frequency of Treatment 2x/Week Duration of Treatment 6 weeks Plan of Care Start Date 10/04/19 Plan of Care End Date 11/15/19 Therapeutic Interventions Therapeutic Interventions Aquatic Therapy,Balance Training,Gait Training,Home Exercise Program,Joint Mobilizations,Manual Therapy, Neuromuscular Re-education, Patient/Caregiver Education, Self-Care/Home Management,Soft Tissue Mobilization,Taping, Therapeutic Activities, Therapeutic Exercises Next Visit Focus/Plan Next Note Type Treatment Note Next Visit Plan Review HEP: standing perfrormed today. Progress gait, stair, and strengthening training.
--- NOTE | 2019-10-18 16:08 | PT.OTN ---
Current Diagnoses Unilateral primary osteoarthritis, right knee (10/18/19) Difficulty in walking, not elsewhere classified (10/18/19) Weakness (10/18/19) Encounter for other orthopedic aftercare (10/18/19) Physical Therapy Treatment Note PT-OP-A Visit Information Start: 03/15/19 12:50 Freq: Status: Active Protocol: Document 10/18/19 09:00 AMB (Rec: 10/18/19 09:53 AMB [id number]) Out-Patient Physical Therapy Visit Information Visit Information Visit Type Treatment Note Visit Start Time 09:00 Visit Stop Time 09:40 Total Visit Minutes 40 Visit Number 31 Number of ENVIRONMENTAL HEALTH OFFICER Visits 0 PT-OP-B Current Condition Start: 03/15/19 12:50 Freq: Status: Active Protocol: Document 07/02/19 09:30 SAK (Rec: 07/02/19 17:22 SAK [id number]) Current Condition History of Current Condition Onset Date 06/21/19 Current Complaints decrease right knee ROM, strength, mobility History of Current Condition Was scheduled for right TKA but came down with a cold and surgery was re- scheduled and performed . Hospital recovery complicated by nausea and states was limited in ability to participate in PT.Was discharged home yesterday. Hasn't had a chance to do her HEP yet. Treatment Goals Patient/Caregiver Goals Be able to take walks, work in garden, to household activities without pain. Prior Functional Status Baseline Function- ADL's Modified Independent Baseline Function- Mobility Modified Independent Baseline Function- Gait indep without device Baseline Function- Other Gardening, taking walks, housework. 5 stairs to enter, radha railings. 14 stairs to garage , 1 railing. Has raised toilet seat. No grab bars in shower. Plan is to go home at discharge. Current Functional Impairments (Reported) Functional Limitations- ADL's painful Functional Limitations- Mobility/Gait painful, uses FWW (height adjusted today) Functional Limitations- Recreation/ unable Hobbies Personal Factors Other Personal Factors That May Effect patient very anxious. Therapy/Recovery Supportive PT-OP-C Subjective Start: 03/15/19 12:50 Freq: Status: Active Protocol: Document 10/18/19 09:00 AMB (Rec: 10/18/19 13:45 AMB [email or web address]) OP-PT Subjective Patient Comments Patient Comments Pt is doing well, she has been practicing walking in her hallway with her cane, but does notice that the hip gets tired. PT-OP-E Functional Tests Start: 03/15/19 12:50 Freq: Status: Active Protocol: Document 10/16/19 09:46 SP (Rec: 10/16/19 09:47 SP [id number]) Functional Tests 6 Minute Walk Test Distance 532 Device Used SPC in RUE Comments cuing for R hip glut activation to decreased pelvic depression, 1 stop rest PT-OP-G Mobility & Gait Start: 03/15/19 12:50 Freq: Status: Active Protocol: Document 07/02/19 09:30 SAK (Rec: 07/02/19 17:22 SAK [id number]) OP Gait Assessment Gait Gait Assistance Required: Standby Assistance Distance (Feet) 60 Assistive Devices Assistive Device Front Wheeled Walker Orthotic/Prosthetic Devices or Brace: No Gait Deviations General Gait Pattern Decreased Stride Length, Decreased Feet Clearance Factors Limiting Gait Function Factors Limiting Gait Function Limited Range of Motion,Pain Comments Gait Comments Patient required moderate cues for gait sequencing and to allow right knee to bend normally with gait; tends to hold in extension Stair Climbing Evaluation Comments Stair Climbing Comments performed in hospital step-to pattern and at home. Not performed today in PT. PT-OP-K Range of Motion Start: 03/15/19 12:50 Freq: Status: Active Protocol: Document 10/02/19 09:45 SP (Rec: 10/02/19 11:36 SP [id number]) Knee Goniometric Range of Motion Knee Right Patient Position Supine Flexion Active (degrees) 129 Flexion Passive (degrees) 132 Extension Active (degrees) 0 Left Patient Position Supine Flexion Active (degrees) 134 PT-OP-M Strength Start: 03/15/19 12:50 Freq: Status: Active Protocol: Document 07/02/19 09:30 SAK (Rec: 07/02/19 17:22 SAK [id number]) Knee Strength Knee Manual Muscle Testing Right Reason Not Measured Orthopedic Precautions,Pain Comments patient able to do independent SLR and SAQ though with extensor lag of appro 15 deg Left Flexion (S2) 4+ Good+ Extension (L3) 4+ Good+ Ankle/Foot Strength Ankle and Foot Manual Muscle Testing radha Dorsiflexion (L4) 4- Good- Plantarflexion (S1) 4- Good- PT-OP-Q Treatments Start: 03/15/19 12:50 Freq: Status: Active Protocol: Document 10/18/19 09:00 AMB (Rec: 10/18/19 13:45 AMB [email or web address]) Cardio Equipment Recumbent Elliptical (Biodex) Duration (Minutes) 8 Resistance 5 Seat Position 8 Therapeutic Exercises Sidelying Exercises 1 Sidelying Exercise Name clamshells Side bilateral Resistance red theraloop Reps/Minutes 3x15 reps Standing Exercises 2 Standing Exercise Name lunges-forward at rail Reps/Minutes 2x10 squats Resistance AROM Equipment Used rail Reps/Minutes x10 heel raise Equipment Used rail (counter/chair H home) Reps/Minutes 3x10 Gait Training Gait Activity 3 Description forward Device Used SPC in RUE Level of Assistance SBA Surface level Distance/Duration 532 ft Treatment Focus glut activation R for level pelvis Comments cued heel press/glut tightening R with LLE advancement and proper patterning SPC 2 pt gait (SPC in RUE pattern with LLE) Able to complete 6MWT. PT-OP-R Modalities Start: 03/15/19 12:50 Freq: Status: Active Protocol: Document 09/04/19 16:24 GGD (Rec: 09/04/19 16:37 GGD [email or web address]) Hot Pack/Cold Pack Treatment Cold Pack Location R knee Patient Position Hooklying Treatment Duration (minutes) 10 PT-OP-T Assessment and Plan Start: 03/15/19 12:50 Freq: Status: Active Protocol: Document 10/18/19 09:00 AMB (Rec: 10/18/19 13:45 AMB [email or web address]) Physical Therapy Assessment Assessment Summary Assessment Pt did well with standing HEP today, Continues to exhibit gait dysfunction, but does have better awareness of when she is fatigued, and encouraged to use walker when hip is fatigued. Physical Therapy Plan Next Visit Focus/Plan Next Note Type Treatment Note Next Visit Plan Review HEP: standing perfrormed today. Progress gait, stair, and strengthening training.
--- NOTE | 2019-10-22 09:50 | PT.OTN ---
Current Diagnoses Unilateral primary osteoarthritis, right knee (10/22/19) Difficulty in walking, not elsewhere classified (10/22/19) Weakness (10/22/19) Encounter for other orthopedic aftercare (10/22/19) Physical Therapy Treatment Note PT-OP-A Visit Information Start: 03/15/19 12:50 Freq: Status: Active Protocol: Document 10/22/19 09:05 SP (Rec: 10/22/19 09:57 SP [id number]) Out-Patient Physical Therapy Visit Information Visit Information Visit Type Treatment Note Visit Start Time 09:05 Visit Stop Time 09:50 Total Visit Minutes 0 Visit Number 32 Number of SENIOR NETWORK ENGINEER Visits 1 PT-OP-B Current Condition Start: 03/15/19 12:50 Freq: Status: Active Protocol: Document 07/02/19 09:30 SAK (Rec: 07/02/19 17:22 SAK [id number]) Current Condition History of Current Condition Onset Date 06/21/19 Current Complaints decrease right knee ROM, strength, mobility History of Current Condition Was scheduled for right TKA but came down with a cold and surgery was re- scheduled and performed . Hospital recovery complicated by nausea and states was limited in ability to participate in PT.Was discharged home yesterday. Hasn't had a chance to do her HEP yet. Treatment Goals Patient/Caregiver Goals Be able to take walks, work in garden, to household activities without pain. Prior Functional Status Baseline Function- ADL's Modified Independent Baseline Function- Mobility Modified Independent Baseline Function- Gait indep without device Baseline Function- Other Gardening, taking walks, housework. 5 stairs to enter, radha railings. 14 stairs to garage , 1 railing. Has raised toilet seat. No grab bars in shower. Plan is to go home at discharge. Current Functional Impairments (Reported) Functional Limitations- ADL's painful Functional Limitations- Mobility/Gait painful, uses FWW (height adjusted today) Functional Limitations- Recreation/ unable Hobbies Personal Factors Other Personal Factors That May Effect patient very anxious. Therapy/Recovery Supportive PT-OP-C Subjective Start: 03/15/19 12:50 Freq: Status: Active Protocol: Document 10/22/19 09:05 SP (Rec: 10/22/19 09:59 SP [id number]) OP-PT Subjective Patient Comments Patient Comments Pt reported doing well walking in the house with her SPC but does use her walker later in the evening when gets tired . Still uses the automated riding cart at the store because tires about 1/[address] around store but better than has been in the past. PT-OP-E Functional Tests Start: 03/15/19 12:50 Freq: Status: Active Protocol: Document 10/16/19 09:46 SP (Rec: 10/16/19 09:47 SP [id number]) Functional Tests 6 Minute Walk Test Distance 532 Device Used SPC in RUE Comments cuing for R hip glut activation to decreased pelvic depression, 1 stop rest PT-OP-G Mobility & Gait Start: 03/15/19 12:50 Freq: Status: Active Protocol: Document 07/02/19 09:30 SAK (Rec: 07/02/19 17:22 SAK [id number]) OP Gait Assessment Gait Gait Assistance Required: Standby Assistance Distance (Feet) 60 Assistive Devices Assistive Device Front Wheeled Walker Orthotic/Prosthetic Devices or Brace: No Gait Deviations General Gait Pattern Decreased Stride Length, Decreased Feet Clearance Factors Limiting Gait Function Factors Limiting Gait Function Limited Range of Motion,Pain Comments Gait Comments Patient required moderate cues for gait sequencing and to allow right knee to bend normally with gait; tends to hold in extension Stair Climbing Evaluation Comments Stair Climbing Comments performed in hospital step-to pattern and at home. Not performed today in PT. PT-OP-K Range of Motion Start: 03/15/19 12:50 Freq: Status: Active Protocol: Document 10/22/19 09:05 SP (Rec: 10/22/19 10:00 SP [id number]) Knee Goniometric Range of Motion Knee Right Patient Position Supine Flexion Active (degrees) 128 Flexion Passive (degrees) 132 Extension Active (degrees) 0 PT-OP-M Strength Start: 03/15/19 12:50 Freq: Status: Active Protocol: Document 07/02/19 09:30 SAK (Rec: 07/02/19 17:22 SAK [id number]) Knee Strength Knee Manual Muscle Testing Right Reason Not Measured Orthopedic Precautions,Pain Comments patient able to do independent SLR and SAQ though with extensor lag of appro 15 deg Left Flexion (S2) 4+ Good+ Extension (L3) 4+ Good+ Ankle/Foot Strength Ankle and Foot Manual Muscle Testing radha Dorsiflexion (L4) 4- Good- Plantarflexion (S1) 4- Good- PT-OP-Q Treatments Start: 03/15/19 12:50 Freq: Status: Active Protocol: Document 10/22/19 09:05 SP (Rec: 10/22/19 09:57 SP [id number]) Gym Equipment Shuttle Recovery Bilateral Squats Resistance 75# 3x10 Shuttle Recovery Platform Stable Reps/Time Y Therloop around knees Therapeutic Exercises Supine Exercises bridge Equipment Used Red theraloop Reps/Minutes x10 Comments slow control, neutral pelvis SLR Reps/Minutes x10 Comments advised abdominal bracing with exercise and maintain knee extension Standing Exercises hip ext/abd Side bilateral Resistance AROM Equipment Used rail Reps/Minutes 2x10 each direction each LE Comments cued for LLE decreased hip f lee compensation during ABD sit to stand Equipment Used 18 height chair (21 table not available) Reps/Minutes 3/5 no UE Comments cued hip hinge UE contact thighs complete 3/5 no UE assist stair lunge Reps/Minutes 10x 2 heel raises Side bilateral Resistance AROM Equipment Used rail Reps/Minutes 2 x10 Gait Training Gait Activity 3 Description forward Device Used SPC in RUE, trialed 1-2 walking sticks Level of Assistance SBA Surface level Distance/Duration 264 ft Treatment Focus glut activation R for level pelvis Comments cued R glut tightening level pelvis during LLE advancement . Trialed 1-2 walking sticks with challenge patterning, suggested keep with cane use. PT-OP-R Modalities Start: 03/15/19 12:50 Freq: Status: Active Protocol: Document 09/04/19 16:24 GGD (Rec: 09/04/19 16:37 GGD [email or web address]) Hot Pack/Cold Pack Treatment Cold Pack Location R knee Patient Position Hooklying Treatment Duration (minutes) 10 PT-OP-T Assessment and Plan Start: 03/15/19 12:50 Freq: Status: Active Protocol: Document 10/22/19 09:05 SP (Rec: 10/22/19 09:57 SP [id number]) Physical Therapy Assessment Goals Five Impairment right LE swelling Short Term Goal (STG) Decrease right LE swelling by 50% STG Duration MET Pulling Machine Operator Goal (LTG) Minimal right LE swelling LTG Duration MET Four Impairment lower extremity functional scale 30% Short Term Goal (STG) Improve LEFS to at least 50% STG Duration MET Pulling Machine Operator Goal (LTG) Improve LEFS to at least 75% LTG Duration 12 wks 3 Impairment decreased right knee strength Short Term Goal (STG) right knee strength 3+/5 STG Duration MET Pulling Machine Operator Goal (LTG) right knee strength 4+/5 to improve functional mobility LTG Duration 12 wks 2 Impairment decreased knee ROM Short Term Goal (STG) right knee AROM 5-110 STG Duration MET Pulling Machine Operator Goal (LTG) right knee AROM 0-120 LTG Duration MET 1 Impairment antalgic gait with device Short Term Goal (STG) Patient able to ambulate with minimal limp on level surface with appropriate assistive device 10/04: working towards , can do with FWW, but not with SPC STG Duration 4 wks Pulling Machine Operator Goal (LTG) Patient able to ambulate without asstive device on level and with railing and alternating pattern on stairs without limp 10/04: pt prefers step to pattern LTG Duration 12 wks Assessment Summary Assessment Pt had good recall and performance with standing and supine HEP, occasional cuing for level pelvis. R knee flexion AROM 0- 128* AAROM 132 *. Pt demonstrates decreased L lateral lean during LLE with cuing for R glut facilitation contraction for level pelvis. Decreased time spent with gait today so decrease distance completed during tx. Trialed walking sticks with noted challenged patterning and commented I will stick with my cane in the house. Physical Therapy Plan Frequency and Duration Frequency of Treatment 2x/Week Duration of Treatment 6 weeks Plan of Care Start Date 10/04/19 Plan of Care End Date 11/15/19 Therapeutic Interventions Therapeutic Interventions Aquatic Therapy,Balance Training,Gait Training,Home Exercise Program,Joint Mobilizations,Manual Therapy, Neuromuscular Re-education, Patient/Caregiver Education, Self-Care/Home Management,Soft Tissue Mobilization,Taping, Therapeutic Activities, Therapeutic Exercises Next Visit Focus/Plan Next Note Type Treatment Note Next Visit Plan Review HEP: standing and supine today. Progress gait, stair, and strengthening training.
--- NOTE | 2019-10-24 12:00 | PT.OTN ---
Current Diagnoses Unilateral primary osteoarthritis, right knee (10/24/19) Difficulty in walking, not elsewhere classified (10/24/19) Weakness (10/24/19) Encounter for other orthopedic aftercare (10/24/19) Physical Therapy Treatment Note PT-OP-A Visit Information Start: 03/15/19 12:50 Freq: Status: Active Protocol: Document 10/24/19 09:00 AMB (Rec: 10/29/19 07:37 AMB [email or web address]) Out-Patient Physical Therapy Visit Information Visit Information Visit Type Discharge Summary Visit Start Time 07:30 Visit Stop Time 08:15 Total Visit Minutes 45 Visit Number 33 Number of SERVICE RESTORER EMERGENCY Visits 0 PT-OP-B Current Condition Start: 03/15/19 12:50 Freq: Status: Active Protocol: Document 07/02/19 09:30 SAK (Rec: 07/02/19 17:22 SAK [id number]) Current Condition History of Current Condition Onset Date 06/21/19 Current Complaints decrease right knee ROM, strength, mobility History of Current Condition Was scheduled for right TKA but came down with a cold and surgery was re- scheduled and performed . Hospital recovery complicated by nausea and states was limited in ability to participate in PT.Was discharged home yesterday. Hasn't had a chance to do her HEP yet. Treatment Goals Patient/Caregiver Goals Be able to take walks, work in garden, to household activities without pain. Prior Functional Status Baseline Function- ADL's Modified Independent Baseline Function- Mobility Modified Independent Baseline Function- Gait indep without device Baseline Function- Other Gardening, taking walks, housework. 5 stairs to enter, radha railings. 14 stairs to garage , 1 railing. Has raised toilet seat. No grab bars in shower. Plan is to go home at discharge. Current Functional Impairments (Reported) Functional Limitations- ADL's painful Functional Limitations- Mobility/Gait painful, uses FWW (height adjusted today) Functional Limitations- Recreation/ unable Hobbies Personal Factors Other Personal Factors That May Effect patient very anxious. Therapy/Recovery Supportive PT-OP-C Subjective Start: 03/15/19 12:50 Freq: Status: Active Protocol: Document 10/24/19 09:00 AMB (Rec: 10/29/19 07:37 AMB [email or web address]) OP-PT Subjective Patient Comments Patient Comments Pt reports knee can get tired in the evening. Hip still gets tired too. PT-OP-E Functional Tests Start: 03/15/19 12:50 Freq: Status: Active Protocol: Document 10/16/19 09:46 SP (Rec: 10/16/19 09:47 SP [id number]) Functional Tests 6 Minute Walk Test Distance 532 Device Used SPC in RUE Comments cuing for R hip glut activation to decreased pelvic depression, 1 stop rest PT-OP-G Mobility & Gait Start: 03/15/19 12:50 Freq: Status: Active Protocol: Document 07/02/19 09:30 SAK (Rec: 07/02/19 17:22 SAK [id number]) OP Gait Assessment Gait Gait Assistance Required: Standby Assistance Distance (Feet) 60 Assistive Devices Assistive Device Front Wheeled Walker Orthotic/Prosthetic Devices or Brace: No Gait Deviations General Gait Pattern Decreased Stride Length, Decreased Feet Clearance Factors Limiting Gait Function Factors Limiting Gait Function Limited Range of Motion,Pain Comments Gait Comments Patient required moderate cues for gait sequencing and to allow right knee to bend normally with gait; tends to hold in extension Stair Climbing Evaluation Comments Stair Climbing Comments performed in hospital step-to pattern and at home. Not performed today in PT. PT-OP-K Range of Motion Start: 03/15/19 12:50 Freq: Status: Active Protocol: Document 10/22/19 09:05 SP (Rec: 10/22/19 10:00 SP [id number]) Knee Goniometric Range of Motion Knee Right Patient Position Supine Flexion Active (degrees) 128 Flexion Passive (degrees) 132 Extension Active (degrees) 0 PT-OP-M Strength Start: 03/15/19 12:50 Freq: Status: Active Protocol: Document 10/24/19 09:00 AMB (Rec: 10/29/19 07:47 AMB [email or web address]) Hip Strength Hip Manual Muscle Testing radha Flexion (L2) 4 Good Extension (S1) 4- Good- Abduction 4- Good- Knee Strength Knee Manual Muscle Testing Right Flexion (S2) 4+ Good+ Extension (L3) 4+ Good+ Left Flexion (S2) 4+ Good+ Extension (L3) 4+ Good+ PT-OP-Q Treatments Start: 03/15/19 12:50 Freq: Status: Active Protocol: Document 10/24/19 09:00 AMB (Rec: 10/24/19 09:40 AMB [id number]) Cardio Equipment Recumbent Stepper (Sci-Fit) Duration (Minutes) 7 Resistance 6 Gym Equipment Shuttle Recovery Bilateral Squats Resistance 75# 3x10 Shuttle Recovery Platform Stable Reps/Time Y Therloop around knees Therapeutic Exercises Sidelying Exercises 2 Sidelying Exercise Name ABD Side right Resistance AROM Reps/Minutes x4 Comments cued L side alignment and hip into ext (neutral) 1 Sidelying Exercise Name clamshells Side bilateral Resistance red theraloop Reps/Minutes 3x15 reps Standing Exercises hip ext/abd Side bilateral Resistance AROM Equipment Used rail Reps/Minutes 2x10 each direction each LE Comments cued for LLE decreased hip f lee compensation during ABD sit to stand Equipment Used 18 height chair (21 table not available) Reps/Minutes 3/5 no UE Comments cued hip hinge UE contact thighs complete 3/5 no UE assist Gait Training Gait Activity 3 Description forward Device Used SPC in RUE, trialed 1-2 walking sticks Level of Assistance SBA Surface level Distance/Duration 264 ft Treatment Focus glut activation R for level pelvis Comments cued R glut tightening level pelvis during LLE advancement . PT-OP-R Modalities Start: 03/15/19 12:50 Freq: Status: Active Protocol: Document 09/04/19 16:24 GGD (Rec: 09/04/19 16:37 GGD [email or web address]) Hot Pack/Cold Pack Treatment Cold Pack Location R knee Patient Position Hooklying Treatment Duration (minutes) 10 PT-OP-T Assessment and Plan Start: 03/15/19 12:50 Freq: Status: Active Protocol: Document 10/24/19 09:09 AMB (Rec: 10/24/19 09:18 AMB [id number]) Physical Therapy Assessment Goals Five Impairment right LE swelling Short Term Goal (STG) Decrease right LE swelling by 50% STG Duration MET Facilities Engineer Goal (LTG) Minimal right LE swelling LTG Duration MET Four Impairment lower extremity functional scale 30% Short Term Goal (STG) Improve LEFS to at least 50% STG Duration MET Prison Goal (LTG) Improve LEFS to at least 75% LTG Duration 12 wks 3 Impairment decreased right knee strength Short Term Goal (STG) right knee strength 3+/5 STG Duration MET Facilities Engineer Goal (LTG) right knee strength 4+/5 to improve functional mobility LTG Duration MET 2 Impairment decreased knee ROM Short Term Goal (STG) right knee AROM 5-110 STG Duration MET Facilities Engineer Goal (LTG) right knee AROM 0-120 LTG Duration MET 1 Impairment antalgic gait with device Short Term Goal (STG) Patient able to ambulate with minimal limp on level surface with appropriate assistive device 12/2: working towards , can do with FWW, but not with SPC STG Duration 4 wks Prison Goal (LTG) Patient able to ambulate without asstive device on level and with railing and alternating pattern on stairs without limp 12/2: pt prefers step to pattern, but can do this in the PT clinic LTG Duration MET Assessment Summary Assessment Chetna's knee is doing quite well. Her range of motion and knee strength have improved significantly. The main factor that has limited her gait for some time now is her hip. She did have this evaluated by ortho and they felt it was more muscular weakness than arthritis which she was happy to hear. She continues to have weakness into hip abduction bilaterally . She does feel that the dragging of her leg that she was doing prior to surgery is much improved, but she will continue on with her strenthening, as the leg does continue to fatigue by the end of the day. Physical Therapy Plan Discharge Physical Therapy Discharge Reasons Goals Met
== END 2019-11-23 11:51 ==
LOC: PHYS 09:00
PROVIDERS: PCP Internal Medicine; Visit Provider Orthopaedic Surgery
DX: M17.11 Unilateral primary osteoarthritis, right knee (principal); Z47.89 Encounter for other orthopedic aftercare; R53.1 Weakness; R26.2 Difficulty in walking, not elsewhere classified
CPT/HCPCS: 97010; 97014; 97110; 97116; 97140; 97161; 97162; 97164; 97535; G0283

== ENCOUNTER 2020-02-14 09:00 | Outpatient (RCR) | payer MEDICARE, OTHER, SELFPAY ==
[2019-06-27 14:40] VITALS: BMI 30.7
--- NOTE | 2020-01-01 14:59 | PT.OIE ---
Current Diagnoses Trochanteric bursitis, left hip (01/01/20) Iliotibial band syndrome, left leg (01/01/20) Past Medical History (Last Updated 03/12/19 @ 14:50 by Sherrie Alvarez RN) Anemia (Acute) Aortic regurgitation (Acute) Arthritis (Acute) Diabetes (Acute) Easy bruisability (Acute) Edema (Acute) HLD (hyperlipidemia) (Acute) HTN (hypertension) (Acute) Hypothyroidism (Acute) Injury of right thigh (Acute ~2017) Iron deficiency anemia (Acute) Lipoma (Acute ~06/2014) Osteoarthritis (Acute) RBBB (right bundle branch block) (Acute) Spinal stenosis (Acute) Past Surgical History (Last Updated 03/08/19 @ 13:21 by Sherrie Alvarez RN) History of arthroplasty of left knee (Acute ~2006) Hx of reduction mammoplasty (Acute) Hx of tonsillectomy (Acute) Status post bilateral cataract extraction (Acute ~2014) Visit Care Team Role Provider Type [facility] Primary Care Provider Non-Staff Specialty: Internal Medicine Address: [address] [place] [address], [id number] Email: Ander Billings MD Attending Provider Physician Referring Provider Specialty: Orthopedic Surgery Address: [address] [place] [address], [id number] Email: [email or web address] Physical Therapy Initial Evaluation PT-OP-A Visit Information Start: 12/28/19 17:20 Freq: Status: Active Protocol: Document 01/01/20 12:48 LRN (Rec: 01/01/20 14:46 LRN [id number]) Out-Patient Physical Therapy Visit Information Visit Information Visit Type Initial Evaluation Visit Start Time 12:53 Visit Stop Time 13:42 Total Visit Minutes 49 Visit Number 1 Number of MEMORY CARE PROGRAM RESIDENT Visits 0 Evaluation Information Evaluation Date 01/01/20 Precautions Precautions Diabetes II Osteopenia Nathan TKA Bruises easily Hx of RBBB PT-OP-B Current Condition Start: 12/28/19 17:20 Freq: Status: Active Protocol: Document 01/01/20 12:48 LRN (Rec: 01/01/20 14:46 LRN [id number]) Current Condition History of Current Condition Onset Date 2 months ago, mid Sep 2019. Current Complaints Kink in L hip with walking, while walking the hip goes inward. History of Current Condition Dx; Trochanteric bursitis L hip and IT band syndrome. Has kink in L hip. Dr Billings gave cortisone injection in the L hip 12/03/19 and had relief of pain in the L hip. She reports sometimes having pain on the R side. She denies pain with sitting. She gets tired in the L hip in the afternoons because she does a lot of walking. She has pain after walking a lot and sometimes the pain moves from the L to the R. She is being referred to physical therapy because of poor gait. Prior Treatments and Tests X-ray of hip: Pt reports no arthritis. Future Testing and Treatments Planned None Developmental History Developmental History Pt reports after L knee surgery she had 4 months of physical therapy, then went to the pool to exercise. She went back to her MD because she was having trouble walking . She states it has been over a year since she has walked normal. Treatment Goals Patient/Caregiver Goals Pt goal is to be able to walk without the hip going in. Pt would like to walk with just a cane. Prior Functional Status Baseline Function- ADL's Independent Baseline Function- Mobility Independent Baseline Function- Gait Walked with a cane. Backwards descending stairs, one step ascending. Baseline Function- Recreation/Hobbies Pool ex 3x/week, last time exercised was in Oct. Current Functional Impairments (Reported) Functional Limitations- Mobility/Gait Uses cane in the home and sometimes without. Outside of home uses walker. Backwards on stairs coming down the stairs, forward going up. Step to gait. has 14 steps at home. No pain. Functional Limitations- Recreation/ Not returned to pool exercise. Hobbies Personal Factors Other Personal Factors That May Effect Controlled HBP Therapy/Recovery Diabetes II Osteopenia L TKA - 12 yrs ago, R TKA - . Hypothyroid, hx of RBBB PT-OP-C Subjective Start: 12/28/19 17:20 Freq: Status: Active Protocol: Document 01/01/20 12:48 LRN (Rec: 01/01/20 14:46 LRN [id number]) Patient Questionnaires Lower Extremity Functional Scale LEFS Score 47 LEFS Impairment 40 to 59% Impaired (Score 32- 47) OP-PT Pain Assessment Pain Assessment Grid Paper Pain Assessment Grid Completed Yes Location L hip Pain Location Details L greater trochanter Intensity 2 Scale Used Numeric (1 - 10) Description Aching Frequency Occasional Pain Duration After activity or with sitting Pain Aggravating Factors Activity,Exercise,Sitting Pain Alleviating Factors Cold,Medication Other Pain Alleviating Factors Alleve PT-OP-G Mobility & Gait Start: 12/28/19 17:20 Freq: Status: Active Protocol: Document 01/01/20 12:48 LRN (Rec: 01/01/20 14:46 LRN [id number]) OP Gait Assessment Gait Gait Assistance Required: Independent Distance (Feet) 100 Able to Maintain Weight Bearing Status Yes During Gait Assistive Devices Assistive Device Front Wheeled Walker Gait Deviations General Gait Pattern Flexed Trunk,Lateral Trunk Lean Factors Limiting Gait Function Factors Limiting Gait Function Decreased Activity Tolerance, Decreased Strength,Pain,Poor Balance Comments Gait Comments Gait without an assistive device: Slow pace with Trendelenburg type gait bilaterally. PT-OP-H Neuro Start: 12/28/19 17:20 Freq: Status: Active Protocol: Document 01/01/20 12:48 LRN (Rec: 01/01/20 14:46 LRN [id number]) Sensation Evaluation Gross Sensation Gross Sensation WNL PT-OP-J Posture/Palpation/Skin Start: 12/28/19 17:20 Freq: Status: Active Protocol: Document 01/01/20 12:48 LRN (Rec: 01/01/20 14:46 LRN [id number]) Posture Evaluation Position Standing Evaluation View All positions Head/C-Spine Posture Forward Head T-Spine Posture Increased Kyphosis L-Spine Posture Decreased Lordosis Scapula Posture (L) Depressed Pelvis Posture Anteriorly Tilted Weight Distribution Balanced Hip Posture (L) Externally Rotated Comments Posture Comments Standing: Trunk in R rotation. Sacrum in R rotation. Palpation Assessment Location Hip ER's @ [facility] Trochanter Palpation Location Tendons of hip external rotators. Palpation Findings Soft Tissue Tightness, Tenderness L hip Palpation Location Greater Trochanter Palpation Findings Tenderness PT-OP-K Range of Motion Start: 12/28/19 17:20 Freq: Status: Active Protocol: Document 01/01/20 12:48 LRN (Rec: 01/01/20 14:46 LRN [id number]) Hip Goniometric Range of Motion Hip Right Passive Straight Leg Raise 70 Extension 0 Abduction 40 Internal Rotation 50 External Rotation 70 Left Passive Straight Leg Raise 70 Extension 0 Abduction 40 Internal Rotation 45 External Rotation 70 Knee Goniometric Range of Motion Knee Bilateral Patient Position Supine Flexion Active (degrees) 120 Extension Active (degrees) 0 Right Patient Position Supine Flexion Active (degrees) 120 Extension Active (degrees) 0 PT-OP-M Strength Start: 12/28/19 17:20 Freq: Status: Active Protocol: Document 01/01/20 12:48 LRN (Rec: 01/01/20 14:46 LRN [id number]) Trunk Strength Trunk Manual Muscle Testing Testing Position Supine Core Stabilization Decreased core stability during LE MMT. Hip Strength Hip Manual Muscle Testing Right Flexion (L2) 5 Normal Extension (S1) 3- Fair- Abduction 2 Poor Adduction 4 Good External Rotation 5 Normal Internal Rotation 3 Fair Left Flexion (L2) 5 Normal Extension (S1) 3- Fair- Abduction 2 Poor Adduction 4 Good External Rotation 5 Normal Internal Rotation 3+ Fair+ Knee Strength Knee Manual Muscle Testing Left Reason Not Measured WFL Right Reason Not Measured WFL Ankle/Foot Strength Ankle and Foot Manual Muscle Testing Right Dorsiflexion (L4) 5 Normal Plantarflexion (S1) 5 Normal Left Dorsiflexion (L4) 5 Normal Plantarflexion (S1) 5 Normal PT-OP-Q Treatments Start: 12/28/19 17:20 Freq: Status: Active Protocol: Document 01/01/20 12:48 LRN (Rec: 01/01/20 14:46 LRN [id number]) Therapeutic Exercises Supine Exercises hip ABD Supine Exercise Name Active Hip AB Side bilateral Reps/Minutes 10 x 2 PT-OP-T Assessment and Plan Start: 12/28/19 17:20 Freq: Status: Active Protocol: Document 01/01/20 12:48 LRN (Rec: 01/01/20 14:46 LRN [id number]) Physical Therapy Assessment Rehab Potential Rehabilitation Potential Good Evaluation Complexity Number of Personal Factors/Comorbidities 3 or More Number of Body Systems Impaired 4 or More Clinical Presentation at Evaluation Evolving Impairments Impairments Activity Tolerance,Balance, Gait,Pain,Posture,ROM,Strength Goals Five Impairment Lacks appropriate HEP [facility] Goal (LTG) Pt will be independent on a self care HEP. LTG Duration 03/01/20 Four Impairment Lower extremity functional scale 58% Short Term Goal (STG) Improve LEFS to at least 65% STG Duration 01/29/20 [facility] Goal (LTG) Improve LEFS to at least 75% LTG Duration 03/01/20 3 Impairment decreased L hip strength (2-/5 ) Short Term Goal (STG) L hip strength 3+/5 STG Duration 01/29/20 [facility] Goal (LTG) L hip strength 4+/5 to improve functional mobility LTG Duration 03/01/20 2 Impairment TUG score: 46 secs Short Term Goal (STG) Improve safety with gait per TUG score of 36 or less without use of assistive device STG Duration 01/29/20 [facility] Goal (LTG) Improve safety with gait per TUG score of 23 or less with out use of assistive device. LTG Duration 03/01/20 1 Impairment antalgic gait with device Short Term Goal (STG) Patient able to ambulate with minimal limp on level surface with an assistive device walker. STG Duration 01/29/20 [facility] Goal (LTG) Patient able to ambulate safely with a cane on level surface outside the home. LTG Duration 03/01/20 Assessment Summary Assessment Pt presents with Trendelenburg gait due to extremely weak hip abductors. She has suffered recently with L hip bursitis and had good resolution of pain after having a cortisone injection . If there is onset of lateral hip pain, her progress will be hindered. The pt will benefit from skilled physical therapy to improve hip strength, improve balance, and improve safety and mechanics of gait. Physical Therapy Plan Frequency and Duration Frequency of Treatment 2x/Week Plan of Care Start Date 01/01/20 Plan of Care End Date 03/01/20 Therapeutic Interventions Therapeutic Interventions Aquatic Therapy,Balance Training,Gait Training,Home Exercise Program,Manual Therapy,Neuromuscular Re- education,Patient/Caregiver Education,Self-Care/Home Management,Soft Tissue Mobilization,Therapeutic Exercises Modalities Cold Pack/Ice Massage,Hot Packs,Iontophoresis,Ultrasound Other Therapeutic Interventions Iontophoresis: 4 mg/mL Dexamethasone with Sodium Phosphate. Next Visit Focus/Plan Next Note Type Treatment Note Next Visit Plan Review supine hip AB ex and issue HEP for hip AB strengthening. Assess gait with SPC (TUG) & DGI. Gait and balance training with focus on strengthening of hip AB's. Modalities as needed for pain.
--- NOTE | 2020-01-01 15:00 | PT.OPPOC ---
Physical, Occupational & Speech Therapy At [facility] Current Diagnoses Trochanteric bursitis, left hip (01/01/20) Iliotibial band syndrome, left leg (01/01/20) Visit Care Team Role Provider Type [facility] Primary Care Provider Non-Staff Specialty: Internal Medicine Address: [address] [place] [address], [id number] Email: Ander Billings MD Attending Provider Physician Referring Provider Specialty: Orthopedic Surgery Address: [address] [place] [address], [id number] Email: [email or web address] Plan Of Care PT-OP-T Assessment and Plan Start: 12/28/19 17:20 Freq: Status: Active Protocol: Document 01/01/20 12:48 LRN (Rec: 01/01/20 14:46 LRN [id number]) Physical Therapy Assessment Rehab Potential Rehabilitation Potential Good Evaluation Complexity Number of Personal Factors/Comorbidities 3 or More Number of Body Systems Impaired 4 or More Clinical Presentation at Evaluation Evolving Impairments Impairments Activity Tolerance,Balance, Gait,Pain,Posture,ROM,Strength Goals Five Impairment Lacks appropriate HEP [facility] Goal (LTG) Pt will be independent on a self care HEP. LTG Duration 03/01/20 Four Impairment Lower extremity functional scale 58% Short Term Goal (STG) Improve LEFS to at least 65% STG Duration 01/29/20 [facility] Goal (LTG) Improve LEFS to at least 75% LTG Duration 03/01/20 3 Impairment decreased L hip strength (2-/5 ) Short Term Goal (STG) L hip strength 3+/5 STG Duration 01/29/20 [facility] Goal (LTG) L hip strength 4+/5 to improve functional mobility LTG Duration 03/01/20 2 Impairment TUG score: 46 secs Short Term Goal (STG) Improve safety with gait per TUG score of 36 or less without use of assistive device STG Duration 01/29/20 [facility] Goal (LTG) Improve safety with gait per TUG score of 23 or less with out use of assistive device. LTG Duration 03/01/20 1 Impairment antalgic gait with device Short Term Goal (STG) Patient able to ambulate with minimal limp on level surface with an assistive device walker. 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 LTG Duration 03/01/20 Assessment Summary Assessment Pt presents with Trendelenburg gait due to extremely weak hip abductors. She has suffered recently with L hip bursitis and had good resolution of pain after having a cortisone injection . If there is onset of lateral hip pain, her progress will be hindered. The pt will benefit from skilled physical therapy to improve hip strength, improve balance, and improve safety and mechanics of gait. Physical Therapy Plan Frequency and Duration Frequency of Treatment 2x/Week Plan of Care Start Date 01/01/20 Plan of Care End Date 03/01/20 Therapeutic Interventions Therapeutic Interventions Aquatic Therapy,Balance Training,Gait Training,Home Exercise Program,Manual Therapy,Neuromuscular Re- education,Patient/Caregiver Education,Self-Care/Home Management,Soft Tissue Mobilization,Therapeutic Exercises Modalities Cold Pack/Ice Massage,Hot Packs,Iontophoresis,Ultrasound Other Therapeutic Interventions Iontophoresis: 4 mg/mL Dexamethasone with Sodium Phosphate. Next Visit Focus/Plan Next Note Type Treatment Note Next Visit Plan Review supine hip AB ex and issue HEP for hip AB strengthening. Assess gait with SPC (TUG) & DGI. Gait and balance training with focus on strengthening of hip AB's. Modalities as needed for pain. Plan of Care Dates Plan of Care Start Date 01/01/20 Plan of Care End Date 03/01/20 Electronically Signed by: Constanza Harper, PT 01/01/20 1500 Please Sign and Return: I have reviewed this Plan of Care and certify that the skilled therapy services above are required to meet the patient?s needs. Physician Signature Date Printed Name and Credentials Clinical Instructor Signature Printed Name and Credentials
--- NOTE | 2020-01-03 11:59 | PT.OTN ---
Current Diagnoses Trochanteric bursitis, left hip (01/03/20) Iliotibial band syndrome, left leg (01/03/20) Physical Therapy Treatment Note PT-OP-A Visit Information Start: 12/28/19 17:20 Freq: Status: Active Protocol: Document 01/01/20 12:48 LRN (Rec: 01/01/20 14:46 LRN [id number]) Out-Patient Physical Therapy Visit Information Visit Information Visit Type Initial Evaluation Visit Start Time 12:53 Visit Stop Time 13:42 Total Visit Minutes 49 Visit Number 1 Number of LPN HOME HEALTH Visits 0 Evaluation Information Evaluation Date 01/01/20 Precautions Precautions Diabetes II Osteopenia Nathan TKA Bruises easily Hx of RBBB PT-OP-B Current Condition Start: 12/28/19 17:20 Freq: Status: Active Protocol: Document 01/01/20 12:48 LRN (Rec: 01/01/20 14:46 LRN [id number]) Current Condition History of Current Condition Onset Date 2 months ago, mid Sep 2019. Current Complaints Kink in L hip with walking, while walking the hip goes inward. History of Current Condition Dx; Trochanteric bursitis L hip and IT band syndrome. Has kink in L hip. Dr Billings gave cortisone injection in the L hip 12/03/19 and had relief of pain in the L hip. She reports sometimes having pain on the R side. She denies pain with sitting. She gets tired in the L hip in the afternoons because she does a lot of walking. She has pain after walking a lot and sometimes the pain moves from the L to the R. She is being referred to physical therapy because of poor gait. Prior Treatments and Tests X-ray of hip: Pt reports no arthritis. Future Testing and Treatments Planned None Developmental History Developmental History Pt reports after L knee surgery she had 4 months of physical therapy, then went to the pool to exercise. She went back to her MD because she was having trouble walking . She states it has been over a year since she has walked normal. Treatment Goals Patient/Caregiver Goals Pt goal is to be able to walk without the hip going in. Pt would like to walk with just a cane. Prior Functional Status Baseline Function- ADL's Independent Baseline Function- Mobility Independent Baseline Function- Gait Walked with a cane. Backwards descending stairs, one step ascending. Baseline Function- Recreation/Hobbies Pool ex 3x/week, last time exercised was in Dec. Current Functional Impairments (Reported) Functional Limitations- Mobility/Gait Uses cane in the home and sometimes without. Outside of home uses walker. Backwards on stairs coming down the stairs, forward going up. Step to gait. has 14 steps at home. No pain. Functional Limitations- Recreation/ Not returned to pool exercise. Hobbies Personal Factors Other Personal Factors That May Effect Controlled HBP Therapy/Recovery Diabetes II Osteopenia L TKA - 12 yrs ago, R TKA - . Hypothyroid, hx of RBBB PT-OP-C Subjective Start: 12/28/19 17:20 Freq: Status: Active Protocol: Document 01/03/20 11:16 KS (Rec: 01/03/20 13:26 KS [email or web address]) OP-PT Subjective Patient Comments Patient Comments Pt states that she is feeling okay today, but is experiencing pain in both hips and wants to ask her doctor about receiving shot in R hip. PT-OP-G Mobility & Gait Start: 12/28/19 17:20 Freq: Status: Active Protocol: Document 01/01/20 12:48 LRN (Rec: 01/01/20 14:46 LRN [id number]) OP Gait Assessment Gait Gait Assistance Required: Independent Distance (Feet) 100 Able to Maintain Weight Bearing Status Yes During Gait Assistive Devices Assistive Device Front Wheeled Walker Gait Deviations General Gait Pattern Flexed Trunk,Lateral Trunk Lean Factors Limiting Gait Function Factors Limiting Gait Function Decreased Activity Tolerance, Decreased Strength,Pain,Poor Balance Comments Gait Comments Gait without an assistive device: Slow pace with Trendelenburg type gait bilaterally. PT-OP-H Neuro Start: 12/28/19 17:20 Freq: Status: Active Protocol: Document 01/01/20 12:48 LRN (Rec: 01/01/20 14:46 LRN [id number]) Sensation Evaluation Gross Sensation Gross Sensation WNL PT-OP-J Posture/Palpation/Skin Start: 12/28/19 17:20 Freq: Status: Active Protocol: Document 01/01/20 12:48 LRN (Rec: 01/01/20 14:46 LRN [id number]) Posture Evaluation Position Standing Evaluation View All positions Head/C-Spine Posture Forward Head T-Spine Posture Increased Kyphosis L-Spine Posture Decreased Lordosis Scapula Posture (L) Depressed Pelvis Posture Anteriorly Tilted Weight Distribution Balanced Hip Posture (L) Externally Rotated Comments Posture Comments Standing: Trunk in R rotation. Sacrum in R rotation. Palpation Assessment Location Hip ER's @ Grtr Trochanter Palpation Location Tendons of hip external rotators. Palpation Findings Soft Tissue Tightness, Tenderness L hip Palpation Location Greater Trochanter Palpation Findings Tenderness PT-OP-K Range of Motion Start: 12/28/19 17:20 Freq: Status: Active Protocol: Document 01/01/20 12:48 LRN (Rec: 01/01/20 14:46 LRN [id number]) Hip Goniometric Range of Motion Hip Right Passive Straight Leg Raise 70 Extension 0 Abduction 40 Internal Rotation 50 External Rotation 70 Left Passive Straight Leg Raise 70 Extension 0 Abduction 40 Internal Rotation 45 External Rotation 70 Knee Goniometric Range of Motion Knee Bilateral Patient Position Supine Flexion Active (degrees) 120 Extension Active (degrees) 0 Right Patient Position Supine Flexion Active (degrees) 120 Extension Active (degrees) 0 PT-OP-M Strength Start: 12/28/19 17:20 Freq: Status: Active Protocol: Document 01/01/20 12:48 LRN (Rec: 01/01/20 14:46 LRN [id number]) Trunk Strength Trunk Manual Muscle Testing Testing Position Supine Core Stabilization Decreased core stability during LE MMT. Hip Strength Hip Manual Muscle Testing Right Flexion (L2) 5 Normal Extension (S1) 3- Fair- Abduction 2 Poor Adduction 4 Good External Rotation 5 Normal Internal Rotation 3 Fair Left Flexion (L2) 5 Normal Extension (S1) 3- Fair- Abduction 2 Poor Adduction 4 Good External Rotation 5 Normal Internal Rotation 3+ Fair+ Knee Strength Knee Manual Muscle Testing Left Reason Not Measured WFL Right Reason Not Measured WFL Ankle/Foot Strength Ankle and Foot Manual Muscle Testing Right Dorsiflexion (L4) 5 Normal Plantarflexion (S1) 5 Normal Left Dorsiflexion (L4) 5 Normal Plantarflexion (S1) 5 Normal PT-OP-Q Treatments Start: 12/28/19 17:20 Freq: Status: Active Protocol: Document 01/03/20 11:16 KS (Rec: 01/03/20 13:19 KS [email or web address]) Cardio Equipment Recumbent Stepper (Sci-Fit) Duration (Minutes) 7 Resistance 1.4 Therapeutic Exercises Supine Exercises Piriformis stretch Supine Exercise Name Piriformis stretch Side bilateral Reps/Minutes 2x30s Sitting Exercises Seated Abduction Sitting Exercise Name Seated abduction Side bilateral Equipment Used L 2 tband Reps/Minutes 2x10 Comments 3 s hold Adductor Squeeze Sitting Exercise Name Adductor squeeze Side bilateral Equipment Used ball Reps/Minutes 2x10 Comments 5 s hold Standing Exercises Marching/high knees Standing Exercise Name Marching Side bilateral Reps/Minutes 2x10 hip ext/abd Standing Exercise Name 3 way hip Side bilateral Equipment Used // pars Reps/Minutes 1x10 each Comments flexion, abduction, extension Manual Therapy Treatment Soft Tissue Mobilization ITB Body Location B ITB Mobilization Type Rolling,Strumming Intensity/Depth Moderate Body Position Sidelying PT-OP-T Assessment and Plan Start: 12/28/19 17:20 Freq: Status: Active Protocol: Document 01/03/20 11:16 KS (Rec: 01/03/20 13:26 KS [email or web address]) Physical Therapy Assessment Rehab Potential Rehabilitation Potential Good Evaluation Complexity Number of Personal Factors/Comorbidities 3 or More Number of Body Systems Impaired 4 or More Clinical Presentation at Evaluation Evolving Impairments Impairments Activity Tolerance,Balance, Gait,Pain,Posture,ROM,Strength Goals Five Impairment Lacks appropriate HEP Baggage Handler Goal (LTG) Pt will be independent on a self care HEP. LTG Duration 03/01/20 Four Impairment Lower extremity functional scale 58% Short Term Goal (STG) Improve LEFS to at least 65% STG Duration 01/29/20 Residential Goal (LTG) Improve LEFS to at least 75% LTG Duration 03/01/20 3 Impairment decreased L hip strength (2-/5 ) Short Term Goal (STG) L hip strength 3+/5 STG Duration 01/29/20 Baggage Handler Goal (LTG) L hip strength 4+/5 to improve functional mobility LTG Duration 03/01/20 2 Impairment TUG score: 46 secs Short Term Goal (STG) Improve safety with gait per TUG score of 36 or less without use of assistive device STG Duration 01/29/20 Residential Goal (LTG) Improve safety with gait per TUG score of 23 or less with out use of assistive device. LTG Duration 03/01/20 1 Impairment antalgic gait with device Short Term Goal (STG) Patient able to ambulate with minimal limp on level surface with an assistive device walker. STG Duration 01/29/20 Baggage Handler Goal (LTG) Patient able to ambulate safely with a cane on level surface outside the home. LTG Duration 03/01/20 Assessment Summary Assessment Pt reported R sided hip pain in addition to L sided upon arrival to therapy today. Able to tolerate all LE strengthening exercises w/o reported increase in pain of either hip. Intervention focused on strengthening of glutes, quads, abductors, and adductors to improve pts hip stability and decrease pain. STM to B ITB to decrease tightness. Significant tissue restriction identified in L ITB, pt responded well to STM to lessen tissue adhesions. Physical Therapy Plan Frequency and Duration Frequency of Treatment 2x/Week Plan of Care Start Date 01/01/20 Plan of Care End Date 03/01/20 Therapeutic Interventions Therapeutic Interventions Aquatic Therapy,Balance Training,Gait Training,Home Exercise Program,Manual Therapy,Neuromuscular Re- education,Patient/Caregiver Education,Self-Care/Home Management,Soft Tissue Mobilization,Therapeutic Exercises Modalities Cold Pack/Ice Massage,Hot Packs,Iontophoresis,Ultrasound Other Therapeutic Interventions Iontophoresis: 4 mg/mL Dexamethasone with Sodium Phosphate. Next Visit Focus/Plan Next Note Type Treatment Note Next Visit Plan Review supine hip AB ex and issue HEP for hip AB strengthening. Assess gait with SPC (TUG) & DGI. Gait and balance training with focus on strengthening of hip AB's. Modalities as needed for pain.
--- NOTE | 2020-01-07 09:10 | PT.OTN ---
Current Diagnoses Trochanteric bursitis, left hip (01/07/20) Iliotibial band syndrome, left leg (01/07/20) Physical Therapy Treatment Note PT-OP-A Visit Information Start: 12/28/19 17:20 Freq: Status: Active Protocol: Document 01/07/20 09:10 RB (Rec: 01/07/20 09:37 RB [email or web address]) Out-Patient Physical Therapy Visit Information Visit Information Visit Type Treatment Note Visit Start Time 08:20 Visit Stop Time 09:06 Total Visit Minutes 46 Visit Number 3 Number of NETWORK OPERATIONS ANALYST Visits 2 PT-OP-B Current Condition Start: 12/28/19 17:20 Freq: Status: Active Protocol: Document 01/01/20 12:48 LRN (Rec: 01/01/20 14:46 LRN [id number]) Current Condition History of Current Condition Onset Date 2 months ago, mid Sep 2019. Current Complaints Kink in L hip with walking, while walking the hip goes inward. History of Current Condition Dx; Trochanteric bursitis L hip and IT band syndrome. Has kink in L hip. Dr Billings gave cortisone injection in the L hip 12/03/19 and had relief of pain in the L hip. She reports sometimes having pain on the R side. She denies pain with sitting. She gets tired in the L hip in the afternoons because she does a lot of walking. She has pain after walking a lot and sometimes the pain moves from the L to the R. She is being referred to physical therapy because of poor gait. Prior Treatments and Tests X-ray of hip: Pt reports no arthritis. Future Testing and Treatments Planned None Developmental History Developmental History Pt reports after L knee surgery she had 4 months of physical therapy, then went to the pool to exercise. She went back to her MD because she was having trouble walking . She states it has been over a year since she has walked normal. Treatment Goals Patient/Caregiver Goals Pt goal is to be able to walk without the hip going in. Pt would like to walk with just a cane. Prior Functional Status Baseline Function- ADL's Independent Baseline Function- Mobility Independent Baseline Function- Gait Walked with a cane. Backwards descending stairs, one step ascending. Baseline Function- Recreation/Hobbies Pool ex 3x/week, last time exercised was in Oct. Current Functional Impairments (Reported) Functional Limitations- Mobility/Gait Uses cane in the home and sometimes without. Outside of home uses walker. Backwards on stairs coming down the stairs, forward going up. Step to gait. has 14 steps at home. No pain. Functional Limitations- Recreation/ Not returned to pool exercise. Hobbies Personal Factors Other Personal Factors That May Effect Controlled HBP Therapy/Recovery Diabetes II Osteopenia L TKA - 12 yrs ago, R TKA - . Hypothyroid, hx of RBBB PT-OP-C Subjective Start: 12/28/19 17:20 Freq: Status: Active Protocol: Document 01/07/20 09:10 RB (Rec: 01/07/20 09:37 RB [email or web address]) OP-PT Subjective Patient Comments Patient Comments Pt. states that she is felling pretty good, but does have some soreness pre pt. She wants to ask her doctor about reciving a shot in her R hip for the pain she somtimes experiances. PT-OP-G Mobility & Gait Start: 12/28/19 17:20 Freq: Status: Active Protocol: Document 01/01/20 12:48 LRN (Rec: 01/01/20 14:46 LRN [id number]) OP Gait Assessment Gait Gait Assistance Required: Independent Distance (Feet) 100 Able to Maintain Weight Bearing Status Yes During Gait Assistive Devices Assistive Device Front Wheeled Walker Gait Deviations General Gait Pattern Flexed Trunk,Lateral Trunk Lean Factors Limiting Gait Function Factors Limiting Gait Function Decreased Activity Tolerance, Decreased Strength,Pain,Poor Balance Comments Gait Comments Gait without an assistive device: Slow pace with Trendelenburg type gait bilaterally. PT-OP-H Neuro Start: 12/28/19 17:20 Freq: Status: Active Protocol: Document 01/01/20 12:48 LRN (Rec: 01/01/20 14:46 LRN [id number]) Sensation Evaluation Gross Sensation Gross Sensation WNL PT-OP-J Posture/Palpation/Skin Start: 12/28/19 17:20 Freq: Status: Active Protocol: Document 01/01/20 12:48 LRN (Rec: 01/01/20 14:46 LRN [id number]) Posture Evaluation Position Standing Evaluation View All positions Head/C-Spine Posture Forward Head T-Spine Posture Increased Kyphosis L-Spine Posture Decreased Lordosis Scapula Posture (L) Depressed Pelvis Posture Anteriorly Tilted Weight Distribution Balanced Hip Posture (L) Externally Rotated Comments Posture Comments Standing: Trunk in R rotation. Sacrum in R rotation. Palpation Assessment Location Hip ER's @ Grtr Trochanter Palpation Location Tendons of hip external rotators. Palpation Findings Soft Tissue Tightness, Tenderness L hip Palpation Location Greater Trochanter Palpation Findings Tenderness PT-OP-K Range of Motion Start: 12/28/19 17:20 Freq: Status: Active Protocol: Document 01/01/20 12:48 LRN (Rec: 01/01/20 14:46 LRN [id number]) Hip Goniometric Range of Motion Hip Right Passive Straight Leg Raise 70 Extension 0 Abduction 40 Internal Rotation 50 External Rotation 70 Left Passive Straight Leg Raise 70 Extension 0 Abduction 40 Internal Rotation 45 External Rotation 70 Knee Goniometric Range of Motion Knee Bilateral Patient Position Supine Flexion Active (degrees) 120 Extension Active (degrees) 0 Right Patient Position Supine Flexion Active (degrees) 120 Extension Active (degrees) 0 PT-OP-M Strength Start: 12/28/19 17:20 Freq: Status: Active Protocol: Document 01/01/20 12:48 LRN (Rec: 01/01/20 14:46 LRN [id number]) Trunk Strength Trunk Manual Muscle Testing Testing Position Supine Core Stabilization Decreased core stability during LE MMT. Hip Strength Hip Manual Muscle Testing Right Flexion (L2) 5 Normal Extension (S1) 3- Fair- Abduction 2 Poor Adduction 4 Good External Rotation 5 Normal Internal Rotation 3 Fair Left Flexion (L2) 5 Normal Extension (S1) 3- Fair- Abduction 2 Poor Adduction 4 Good External Rotation 5 Normal Internal Rotation 3+ Fair+ Knee Strength Knee Manual Muscle Testing Left Reason Not Measured WFL Right Reason Not Measured WFL Ankle/Foot Strength Ankle and Foot Manual Muscle Testing Right Dorsiflexion (L4) 5 Normal Plantarflexion (S1) 5 Normal Left Dorsiflexion (L4) 5 Normal Plantarflexion (S1) 5 Normal PT-OP-Q Treatments Start: 12/28/19 17:20 Freq: Status: Active Protocol: Document 01/07/20 09:10 RB (Rec: 01/07/20 09:37 RB [email or web address]) Cardio Equipment Recumbent Stepper (Sci-Fit) Duration (Minutes) 7 Resistance 1.5 Therapeutic Exercises Sitting Exercises Piriformis stretch Side bilateral Reps/Minutes 2x30s Seated Abduction Sitting Exercise Name Seated abduction Side bilateral Equipment Used L 2 tband Reps/Minutes 2x10 Comments 3 s hold Adductor Squeeze Sitting Exercise Name Adductor squeeze Side bilateral Equipment Used ball Reps/Minutes 2x10 Comments 5 s hold Standing Exercises Marching/high knees Standing Exercise Name Marching Side bilateral Equipment Used Walker Reps/Minutes 2x10 hip ext/abd Standing Exercise Name 3 way hip Side bilateral Equipment Used Walker Reps/Minutes 1x10 each Comments flexion, abduction, extension PT-OP-T Assessment and Plan Start: 12/28/19 17:20 Freq: Status: Active Protocol: Document 01/07/20 09:10 RB (Rec: 01/07/20 09:37 RB [email or web address]) Physical Therapy Assessment Goals Five Impairment Lacks appropriate HEP Nursing Home Goal (LTG) Pt will be independent on a self care HEP. LTG Duration 03/01/20 Four Impairment Lower extremity functional scale 58% Short Term Goal (STG) Improve LEFS to at least 65% STG Duration 01/29/20 Nursing Home Goal (LTG) Improve LEFS to at least 75% LTG Duration 03/01/20 3 Impairment decreased L hip strength (2-/5 ) Short Term Goal (STG) L hip strength 3+/5 STG Duration 01/29/20 Senior Buyer Planner Goal (LTG) L hip strength 4+/5 to improve functional mobility LTG Duration 03/01/20 2 Impairment TUG score: 46 secs Short Term Goal (STG) Improve safety with gait per TUG score of 36 or less without use of assistive device STG Duration 01/29/20 Nursing Home Goal (LTG) Improve safety with gait per TUG score of 23 or less with out use of assistive device. LTG Duration 03/01/20 1 Impairment antalgic gait with device Short Term Goal (STG) Patient able to ambulate with minimal limp on level surface with an assistive device walker. STG Duration 01/29/20 Senior Buyer Planner Goal (LTG) Patient able to ambulate safely with a cane on level surface outside the home. LTG Duration 03/01/20 Progress Towards Goals Progress Comments TUG performed w/ FWW 22sec. Dynamic Gait index required uses of FWW for support 12/21 ( high fall risk). Assessment Summary Assessment Pt. completed hip abd/add seated exercises w/o pain. When performing standing 3 way hip ext/abd required stablization on walker progressing from no hand to 1 hand, to 2 hands, to maintain balance while perfoming exercies safely. Physical Therapy Plan Frequency and Duration Frequency of Treatment 2x/Week Plan of Care Start Date 01/01/20 Plan of Care End Date 03/01/20 Therapeutic Interventions Therapeutic Interventions Aquatic Therapy,Balance Training,Gait Training,Home Exercise Program,Manual Therapy,Neuromuscular Re- education,Patient/Caregiver Education,Self-Care/Home Management,Soft Tissue Mobilization,Therapeutic Exercises Modalities Cold Pack/Ice Massage,Hot Packs,Iontophoresis,Ultrasound Other Therapeutic Interventions Iontophoresis: 4 mg/mL Dexamethasone with Sodium Phosphate. Next Visit Focus/Plan Next Note Type Treatment Note Next Visit Plan Review seated hip AB ex and issued HEP for hip AB strengthening and stretching. Continue per PT POC: work on blance and hip strengthening Hip ab's. Modailties as needed for pain.
--- NOTE | 2020-01-10 11:11 | PT.OTN ---
Current Diagnoses Trochanteric bursitis, left hip (01/10/20) Iliotibial band syndrome, left leg (01/10/20) Physical Therapy Treatment Note PT-OP-A Visit Information Start: 12/28/19 17:20 Freq: Status: Active Protocol: Document 01/10/20 10:25 KS (Rec: 01/10/20 12:37 KS [email or web address]) Out-Patient Physical Therapy Visit Information Visit Information Visit Type Treatment Note Visit Start Time 10:25 Visit Stop Time 11:11 Total Visit Minutes 46 Visit Number 4 Number of MEDICAL INTERN Visits 3 PT-OP-B Current Condition Start: 12/28/19 17:20 Freq: Status: Active Protocol: Document 01/01/20 12:48 LRN (Rec: 01/01/20 14:46 LRN [id number]) Current Condition History of Current Condition Onset Date 2 months ago, mid Sep 2019. Current Complaints Kink in L hip with walking, while walking the hip goes inward. History of Current Condition Dx; Trochanteric bursitis L hip and IT band syndrome. Has kink in L hip. Dr Billings gave cortisone injection in the L hip 12/03/19 and had relief of pain in the L hip. She reports sometimes having pain on the R side. She denies pain with sitting. She gets tired in the L hip in the afternoons because she does a lot of walking. She has pain after walking a lot and sometimes the pain moves from the L to the R. She is being referred to physical therapy because of poor gait. Prior Treatments and Tests X-ray of hip: Pt reports no arthritis. Future Testing and Treatments Planned None Developmental History Developmental History Pt reports after L knee surgery she had 4 months of physical therapy, then went to the pool to exercise. She went back to her MD because she was having trouble walking . She states it has been over a year since she has walked normal. Treatment Goals Patient/Caregiver Goals Pt goal is to be able to walk without the hip going in. Pt would like to walk with just a cane. Prior Functional Status Baseline Function- ADL's Independent Baseline Function- Mobility Independent Baseline Function- Gait Walked with a cane. Backwards descending stairs, one step ascending. Baseline Function- Recreation/Hobbies Pool ex 3x/week, last time exercised was in Oct. Current Functional Impairments (Reported) Functional Limitations- Mobility/Gait Uses cane in the home and sometimes without. Outside of home uses walker. Backwards on stairs coming down the stairs, forward going up. Step to gait. has 14 steps at home. No pain. Functional Limitations- Recreation/ Not returned to pool exercise. Hobbies Personal Factors Other Personal Factors That May Effect Controlled HBP Therapy/Recovery Diabetes II Osteopenia L TKA - 12 yrs ago, R TKA - . Hypothyroid, hx of RBBB PT-OP-C Subjective Start: 12/28/19 17:20 Freq: Status: Active Protocol: Document 01/10/20 10:25 KS (Rec: 01/10/20 12:37 KS [email or web address]) OP-PT Subjective Patient Comments Patient Comments Pt states that she has noticed some relief since last treatment, but still has pain in R hip as well and plans to discuss shot w/ doctor in near future. PT-OP-G Mobility & Gait Start: 12/28/19 17:20 Freq: Status: Active Protocol: Document 01/01/20 12:48 LRN (Rec: 01/01/20 14:46 LRN [id number]) OP Gait Assessment Gait Gait Assistance Required: Independent Distance (Feet) 100 Able to Maintain Weight Bearing Status Yes During Gait Assistive Devices Assistive Device Front Wheeled Walker Gait Deviations General Gait Pattern Flexed Trunk,Lateral Trunk Lean Factors Limiting Gait Function Factors Limiting Gait Function Decreased Activity Tolerance, Decreased Strength,Pain,Poor Balance Comments Gait Comments Gait without an assistive device: Slow pace with Trendelenburg type gait bilaterally. PT-OP-H Neuro Start: 12/28/19 17:20 Freq: Status: Active Protocol: Document 01/01/20 12:48 LRN (Rec: 01/01/20 14:46 LRN [id number]) Sensation Evaluation Gross Sensation Gross Sensation WNL PT-OP-J Posture/Palpation/Skin Start: 12/28/19 17:20 Freq: Status: Active Protocol: Document 01/01/20 12:48 LRN (Rec: 01/01/20 14:46 LRN [id number]) Posture Evaluation Position Standing Evaluation View All positions Head/C-Spine Posture Forward Head T-Spine Posture Increased Kyphosis L-Spine Posture Decreased Lordosis Scapula Posture (L) Depressed Pelvis Posture Anteriorly Tilted Weight Distribution Balanced Hip Posture (L) Externally Rotated Comments Posture Comments Standing: Trunk in R rotation. Sacrum in R rotation. Palpation Assessment Location Hip ER's @ Grtr Trochanter Palpation Location Tendons of hip external rotators. Palpation Findings Soft Tissue Tightness, Tenderness L hip Palpation Location Greater Trochanter Palpation Findings Tenderness PT-OP-K Range of Motion Start: 12/28/19 17:20 Freq: Status: Active Protocol: Document 01/01/20 12:48 LRN (Rec: 01/01/20 14:46 LRN [id number]) Hip Goniometric Range of Motion Hip Right Passive Straight Leg Raise 70 Extension 0 Abduction 40 Internal Rotation 50 External Rotation 70 Left Passive Straight Leg Raise 70 Extension 0 Abduction 40 Internal Rotation 45 External Rotation 70 Knee Goniometric Range of Motion Knee Bilateral Patient Position Supine Flexion Active (degrees) 120 Extension Active (degrees) 0 Right Patient Position Supine Flexion Active (degrees) 120 Extension Active (degrees) 0 PT-OP-M Strength Start: 12/28/19 17:20 Freq: Status: Active Protocol: Document 01/01/20 12:48 LRN (Rec: 01/01/20 14:46 LRN [id number]) Trunk Strength Trunk Manual Muscle Testing Testing Position Supine Core Stabilization Decreased core stability during LE MMT. Hip Strength Hip Manual Muscle Testing Right Flexion (L2) 5 Normal Extension (S1) 3- Fair- Abduction 2 Poor Adduction 4 Good External Rotation 5 Normal Internal Rotation 3 Fair Left Flexion (L2) 5 Normal Extension (S1) 3- Fair- Abduction 2 Poor Adduction 4 Good External Rotation 5 Normal Internal Rotation 3+ Fair+ Knee Strength Knee Manual Muscle Testing Left Reason Not Measured WFL Right Reason Not Measured WFL Ankle/Foot Strength Ankle and Foot Manual Muscle Testing Right Dorsiflexion (L4) 5 Normal Plantarflexion (S1) 5 Normal Left Dorsiflexion (L4) 5 Normal Plantarflexion (S1) 5 Normal PT-OP-Q Treatments Start: 12/28/19 17:20 Freq: Status: Active Protocol: Document 01/10/20 10:25 KS (Rec: 01/10/20 12:37 KS [email or web address]) Cardio Equipment Recumbent Stepper (Sci-Fit) Duration (Minutes) 7 Resistance 1.7 Therapeutic Exercises Sitting Exercises Seated hamstring curl Sitting Exercise Name Seated hamstring curl Side bilateral Resistance Level 2 tband Reps/Minutes 2x10 Comments core activation/upright posture Seated Abduction Sitting Exercise Name Seated abduction Side bilateral Equipment Used L 2 tband Reps/Minutes 2x10 Comments 3 s hold Adductor Squeeze Sitting Exercise Name Adductor squeeze Side bilateral Equipment Used ball Reps/Minutes 2x10 Comments 5 s hold Standing Exercises Side steps Standing Exercise Name Side steps Side bilateral Resistance Level 2 tband Equipment Used // bars Comments cues for forward facing toes Marching/high knees Standing Exercise Name Marching Side bilateral Equipment Used // bars Reps/Minutes 3x10 hip ext/abd Standing Exercise Name 3 way hip Side bilateral Equipment Used // bars Reps/Minutes 1x10 each Comments flexion, abduction, extension Manual Therapy Treatment Soft Tissue Mobilization ITB Body Location B ITB Mobilization Type Rolling,Strumming Intensity/Depth Moderate Body Position Sidelying Comments ITB tightness L>R Tenderness R>L PT-OP-T Assessment and Plan Start: 12/28/19 17:20 Freq: Status: Active Protocol: Document 01/10/20 10:25 KS (Rec: 01/10/20 12:37 KS [email or web address]) Physical Therapy Assessment Rehab Potential Rehabilitation Potential Good Evaluation Complexity Number of Personal Factors/Comorbidities 3 or More Number of Body Systems Impaired 4 or More Clinical Presentation at Evaluation Evolving Impairments Impairments Activity Tolerance,Balance, Gait,Pain,Posture,ROM,Strength Goals Five Impairment Lacks appropriate HEP Jail Goal (LTG) Pt will be independent on a self care HEP. LTG Duration 03/01/20 Four Impairment Lower extremity functional scale 58% Short Term Goal (STG) Improve LEFS to at least 65% STG Duration 01/29/20 Mechanical Engineering Teacher Goal (LTG) Improve LEFS to at least 75% LTG Duration 03/01/20 3 Impairment decreased L hip strength (2-/5 ) Short Term Goal (STG) L hip strength 3+/5 STG Duration 01/29/20 Jail Goal (LTG) L hip strength 4+/5 to improve functional mobility LTG Duration 03/01/20 2 Impairment TUG score: 46 secs Short Term Goal (STG) Improve safety with gait per TUG score of 36 or less without use of assistive device STG Duration 01/29/20 Mechanical Engineering Teacher Goal (LTG) Improve safety with gait per TUG score of 23 or less with out use of assistive device. LTG Duration 03/01/20 1 Impairment antalgic gait with device Short Term Goal (STG) Patient able to ambulate with minimal limp on level surface with an assistive device walker. STG Duration 01/29/20 Mechanical Engineering Teacher Goal (LTG) Patient able to ambulate safely with a cane on level surface outside the home. LTG Duration 03/01/20 Progress Towards Goals Progress Comments TUG performed w/ FWW 22sec. Dynamic Gait index required uses of FWW for support 12/21 ( high fall risk). Assessment Summary Assessment Pt denied any increase in pain throughout treatment today and tolerated LE strengthening exercises well. Focused on hip strengthening to improve balance and stabilization while ambulating. Pt needed cues for forward facing toes during 3 way hip and side steps, as well as cues for core stabilization. Pt responded well to STM of B ITB in an effort to decrease adhesion and pain. Pt will benefit from continued LE strengthening and balance training to improve gait and balance deficits. Physical Therapy Plan Frequency and Duration Frequency of Treatment 2x/Week Plan of Care Start Date 01/01/20 Plan of Care End Date 03/01/20 Therapeutic Interventions Therapeutic Interventions Aquatic Therapy,Balance Training,Gait Training,Home Exercise Program,Manual Therapy,Neuromuscular Re- education,Patient/Caregiver Education,Self-Care/Home Management,Soft Tissue Mobilization,Therapeutic Exercises Modalities Cold Pack/Ice Massage,Hot Packs,Iontophoresis,Ultrasound Other Therapeutic Interventions Iontophoresis: 4 mg/mL Dexamethasone with Sodium Phosphate. Discharge Physical Therapy Discharge Reasons Goals Met Next Visit Focus/Plan Next Note Type Treatment Note Next Visit Plan Review seated hip AB ex and issued HEP for hip AB strengthening and stretching. Continue per PT POC: work on blance and hip strengthening Hip ab's. Modailties as needed for pain.
--- NOTE | 2020-01-15 11:08 | PT.OTN ---
Current Diagnoses Trochanteric bursitis, left hip (01/15/20) Iliotibial band syndrome, left leg (01/15/20) Physical Therapy Treatment Note PT-OP-A Visit Information Start: 12/28/19 17:20 Freq: Status: Active Protocol: Document 01/15/20 10:15 HH (Rec: 01/15/20 11:07 HH [id number]) Out-Patient Physical Therapy Visit Information Visit Information Visit Type Treatment Note Visit Start Time 10:15 Visit Stop Time 11:01 Total Visit Minutes 46 Visit Number 5 Number of [employer] Visits 0 PT-OP-B Current Condition Start: 12/28/19 17:20 Freq: Status: Active Protocol: Document 01/01/20 12:48 LRN (Rec: 01/01/20 14:46 LRN [id number]) Current Condition History of Current Condition Onset Date 2 months ago, mid Sep 2019. Current Complaints Kink in L hip with walking, while walking the hip goes inward. History of Current Condition Dx; Trochanteric bursitis L hip and IT band syndrome. Has kink in L hip. Dr Billings gave cortisone injection in the L hip 12/03/19 and had relief of pain in the L hip. She reports sometimes having pain on the R side. She denies pain with sitting. She gets tired in the L hip in the afternoons because she does a lot of walking. She has pain after walking a lot and sometimes the pain moves from the L to the R. She is being referred to physical therapy because of poor gait. Prior Treatments and Tests X-ray of hip: Pt reports no arthritis. Future Testing and Treatments Planned None Developmental History Developmental History Pt reports after L knee surgery she had 4 months of physical therapy, then went to the pool to exercise. She went back to her MD because she was having trouble walking . She states it has been over a year since she has walked normal. Treatment Goals Patient/Caregiver Goals Pt goal is to be able to walk without the hip going in. Pt would like to walk with just a cane. Prior Functional Status Baseline Function- ADL's Independent Baseline Function- Mobility Independent Baseline Function- Gait Walked with a cane. Backwards descending stairs, one step ascending. Baseline Function- Recreation/Hobbies Pool ex 3x/week, last time exercised was in Oct. Current Functional Impairments (Reported) Functional Limitations- Mobility/Gait Uses cane in the home and sometimes without. Outside of home uses walker. Backwards on stairs coming down the stairs, forward going up. Step to gait. has 14 steps at home. No pain. Functional Limitations- Recreation/ Not returned to pool exercise. Hobbies Personal Factors Other Personal Factors That May Effect Controlled HBP Therapy/Recovery Diabetes II Osteopenia L TKA - 12 yrs ago, R TKA - . Hypothyroid, hx of RBBB PT-OP-C Subjective Start: 12/28/19 17:20 Freq: Status: Active Protocol: Document 01/15/20 10:15 HH (Rec: 01/15/20 11:07 HH [id number]) OP-PT Subjective Patient Comments Patient Comments My L hip is still doing pretty good after the shot and my R hip is still clicking and bothering me a bit. My knees have been feeling fine. Meena been using my cane at home as much as i can. PT-OP-G Mobility & Gait Start: 12/28/19 17:20 Freq: Status: Active Protocol: Document 01/01/20 12:48 LRN (Rec: 01/01/20 14:46 LRN [id number]) OP Gait Assessment Gait Gait Assistance Required: Independent Distance (Feet) 100 Able to Maintain Weight Bearing Status Yes During Gait Assistive Devices Assistive Device Front Wheeled Walker Gait Deviations General Gait Pattern Flexed Trunk,Lateral Trunk Lean Factors Limiting Gait Function Factors Limiting Gait Function Decreased Activity Tolerance, Decreased Strength,Pain,Poor Balance Comments Gait Comments Gait without an assistive device: Slow pace with Trendelenburg type gait bilaterally. PT-OP-H Neuro Start: 12/28/19 17:20 Freq: Status: Active Protocol: Document 01/01/20 12:48 LRN (Rec: 01/01/20 14:46 LRN [id number]) Sensation Evaluation Gross Sensation Gross Sensation WNL PT-OP-J Posture/Palpation/Skin Start: 12/28/19 17:20 Freq: Status: Active Protocol: Document 01/01/20 12:48 LRN (Rec: 01/01/20 14:46 LRN [id number]) Posture Evaluation Position Standing Evaluation View All positions Head/C-Spine Posture Forward Head T-Spine Posture Increased Kyphosis L-Spine Posture Decreased Lordosis Scapula Posture (L) Depressed Pelvis Posture Anteriorly Tilted Weight Distribution Balanced Hip Posture (L) Externally Rotated Comments Posture Comments Standing: Trunk in R rotation. Sacrum in R rotation. Palpation Assessment Location Hip ER's @ Grtr Trochanter Palpation Location Tendons of hip external rotators. Palpation Findings Soft Tissue Tightness, Tenderness L hip Palpation Location Greater Trochanter Palpation Findings Tenderness PT-OP-K Range of Motion Start: 12/28/19 17:20 Freq: Status: Active Protocol: Document 01/01/20 12:48 LRN (Rec: 01/01/20 14:46 LRN [id number]) Hip Goniometric Range of Motion Hip Right Passive Straight Leg Raise 70 Extension 0 Abduction 40 Internal Rotation 50 External Rotation 70 Left Passive Straight Leg Raise 70 Extension 0 Abduction 40 Internal Rotation 45 External Rotation 70 Knee Goniometric Range of Motion Knee Bilateral Patient Position Supine Flexion Active (degrees) 120 Extension Active (degrees) 0 Right Patient Position Supine Flexion Active (degrees) 120 Extension Active (degrees) 0 PT-OP-M Strength Start: 12/28/19 17:20 Freq: Status: Active Protocol: Document 01/01/20 12:48 LRN (Rec: 01/01/20 14:46 LRN [id number]) Trunk Strength Trunk Manual Muscle Testing Testing Position Supine Core Stabilization Decreased core stability during LE MMT. Hip Strength Hip Manual Muscle Testing Right Flexion (L2) 5 Normal Extension (S1) 3- Fair- Abduction 2 Poor Adduction 4 Good External Rotation 5 Normal Internal Rotation 3 Fair Left Flexion (L2) 5 Normal Extension (S1) 3- Fair- Abduction 2 Poor Adduction 4 Good External Rotation 5 Normal Internal Rotation 3+ Fair+ Knee Strength Knee Manual Muscle Testing Left Reason Not Measured WFL Right Reason Not Measured WFL Ankle/Foot Strength Ankle and Foot Manual Muscle Testing Right Dorsiflexion (L4) 5 Normal Plantarflexion (S1) 5 Normal Left Dorsiflexion (L4) 5 Normal Plantarflexion (S1) 5 Normal PT-OP-Q Treatments Start: 12/28/19 17:20 Freq: Status: Active Protocol: Document 01/15/20 10:15 HH (Rec: 01/15/20 11:07 HH [id number]) Cardio Equipment Recumbent Stepper (Sci-Fit) Duration (Minutes) 7 Resistance 1.7 Therapeutic Exercises Supine Exercises bridge Supine Exercise Name with resisted hip abd Equipment Used yellow band Reps/Minutes 4 mins hip ABD Supine Exercise Name unilateral hip abd Side bilateral Equipment Used yellow band Reps/Minutes 4 mins Sidelying Exercises clamshell Side right Comments against PT resistance Sitting Exercises Seated Abduction Sitting Exercise Name Seated abduction Side bilateral Equipment Used L 2 tband Reps/Minutes 2x10 Comments 3 s hold Standing Exercises side step w jose a Standing Exercise Name hands on grab bar Side bilateral Reps/Minutes 10 mins Comments PT hand on R hip to block lateral weight shift Side steps Standing Exercise Name Side steps Side bilateral Resistance Level 2 tband Equipment Used // bars Comments cues for forward facing toes Manual Therapy Treatment Soft Tissue Mobilization R hip abd Mobilization Type Sustained Pressure,Trigger Point Release Intensity/Depth Moderate Body Position Sidelying PT-OP-T Assessment and Plan Start: 12/28/19 17:20 Freq: Status: Active Protocol: Document 01/15/20 10:15 (Rec: 01/15/20 11:07 [id number]) Physical Therapy Assessment Goals Five Impairment Lacks appropriate HEP Transmission Operator Goal (LTG) Pt will be independent on a self care HEP. LTG Duration 03/01/20 Four Impairment Lower extremity functional scale 58% Short Term Goal (STG) Improve LEFS to at least 65% STG Duration 01/29/20 Transmission Operator Goal (LTG) Improve LEFS to at least 75% LTG Duration 03/01/20 3 Impairment decreased L hip strength (2-/5 ) Short Term Goal (STG) L hip strength 3+/5 STG Duration 01/29/20 Transmission Operator Goal (LTG) L hip strength 4+/5 to improve functional mobility LTG Duration 03/01/20 2 Impairment TUG score: 46 secs Short Term Goal (STG) Improve safety with gait per TUG score of 36 or less without use of assistive device STG Duration 01/29/20 Senior Living Goal (LTG) Improve safety with gait per TUG score of 23 or less with out use of assistive device. LTG Duration 03/01/20 1 Impairment antalgic gait with device Short Term Goal (STG) Patient able to ambulate with minimal limp on level surface with an assistive device walker. STG Duration 01/29/20 Senior Living Goal (LTG) Patient able to ambulate safely with a cane on level surface outside the home. LTG Duration 04/04/20 Assessment Summary Assessment Pt has significant R hip ext/ abd weakness which leads to poor frontal place to stability, along with Trendenlenberg sign on R side. Tx focused on R hip ext and abd, followed by side step with R hip lateral block to facilitate R hip abd activation. Physical Therapy Plan Next Visit Focus/Plan Next Note Type Treatment Note Next Visit Plan Review seated hip AB ex and issued HEP for hip AB strengthening and stretching. Continue per PT POC: work on blance and hip strengthening Hip ab's. Modailties as needed for pain. cont work on frontal place stability R>L.
--- NOTE | 2020-01-24 16:21 | PT.OTN ---
Current Diagnoses Trochanteric bursitis, left hip (01/24/20) Iliotibial band syndrome, left leg (01/24/20) Physical Therapy Treatment Note PT-OP-A Visit Information Start: 12/28/19 17:20 Freq: Status: Active Protocol: Document 01/24/20 14:17 LRN (Rec: 01/24/20 15:07 LRN [id number]) Out-Patient Physical Therapy Visit Information Visit Information Visit Type Treatment Note Visit Start Time 14:16 Visit Stop Time 15:02 Total Visit Minutes 46 Visit Number 7 Number of CLINICAL ASSISTANT PROFESSOR Visits 0 Evaluation Information Evaluation Date 01/01/20 Precautions Precautions Diabetes II Osteopenia Nathan TKA Bruises easily Hx of RBBB PT-OP-B Current Condition Start: 12/28/19 17:20 Freq: Status: Active Protocol: Document 01/01/20 12:48 LRN (Rec: 01/01/20 14:46 LRN [id number]) Current Condition History of Current Condition Onset Date 2 months ago, mid Sep 2019. Current Complaints Kink in L hip with walking, while walking the hip goes inward. History of Current Condition Dx; Trochanteric bursitis L hip and IT band syndrome. Has kink in L hip. Dr Billings gave cortisone injection in the L hip 12/03/19 and had relief of pain in the L hip. She reports sometimes having pain on the R side. She denies pain with sitting. She gets tired in the L hip in the afternoons because she does a lot of walking. She has pain after walking a lot and sometimes the pain moves from the L to the R. She is being referred to physical therapy because of poor gait. Prior Treatments and Tests X-ray of hip: Pt reports no arthritis. Future Testing and Treatments Planned None Developmental History Developmental History Pt reports after L knee surgery she had 4 months of physical therapy, then went to the pool to exercise. She went back to her MD because she was having trouble walking . She states it has been over a year since she has walked normal. Treatment Goals Patient/Caregiver Goals Pt goal is to be able to walk without the hip going in. Pt would like to walk with just a cane. Prior Functional Status Baseline Function- ADL's Independent Baseline Function- Mobility Independent Baseline Function- Gait Walked with a cane. Backwards descending stairs, one step ascending. Baseline Function- Recreation/Hobbies Pool ex 3x/week, last time exercised was in Dec. Current Functional Impairments (Reported) Functional Limitations- Mobility/Gait Uses cane in the home and sometimes without. Outside of home uses walker. Backwards on stairs coming down the stairs, forward going up. Step to gait. has 14 steps at home. No pain. Functional Limitations- Recreation/ Not returned to pool exercise. Hobbies Personal Factors Other Personal Factors That May Effect Controlled HBP Therapy/Recovery Diabetes II Osteopenia L TKA - 12 yrs ago, R TKA - . Hypothyroid, hx of RBBB PT-OP-C Subjective Start: 12/28/19 17:20 Freq: Status: Active Protocol: Document 01/24/20 14:17 LRN (Rec: 01/24/20 15:07 LRN [id number]) OP-PT Subjective Patient Comments Patient Comments Did gardening yesterday 1 hr. Stop every half hour and stretch to sides and frontwards. PT-OP-G Mobility & Gait Start: 12/28/19 17:20 Freq: Status: Active Protocol: Document 01/01/20 12:48 LRN (Rec: 01/01/20 14:46 LRN [id number]) OP Gait Assessment Gait Gait Assistance Required: Independent Distance (Feet) 100 Able to Maintain Weight Bearing Status Yes During Gait Assistive Devices Assistive Device Front Wheeled Walker Gait Deviations General Gait Pattern Flexed Trunk,Lateral Trunk Lean Factors Limiting Gait Function Factors Limiting Gait Function Decreased Activity Tolerance, Decreased Strength,Pain,Poor Balance Comments Gait Comments Gait without an assistive device: Slow pace with Trendelenburg type gait bilaterally. PT-OP-H Neuro Start: 12/28/19 17:20 Freq: Status: Active Protocol: Document 01/01/20 12:48 LRN (Rec: 01/01/20 14:46 LRN [id number]) Sensation Evaluation Gross Sensation Gross Sensation WNL PT-OP-J Posture/Palpation/Skin Start: 12/28/19 17:20 Freq: Status: Active Protocol: Document 01/01/20 12:48 LRN (Rec: 01/01/20 14:46 LRN [id number]) Posture Evaluation Position Standing Evaluation View All positions Head/C-Spine Posture Forward Head T-Spine Posture Increased Kyphosis L-Spine Posture Decreased Lordosis Scapula Posture (L) Depressed Pelvis Posture Anteriorly Tilted Weight Distribution Balanced Hip Posture (L) Externally Rotated Comments Posture Comments Standing: Trunk in R rotation. Sacrum in R rotation. Palpation Assessment Location Hip ER's @ Grtr Trochanter Palpation Location Tendons of hip external rotators. Palpation Findings Soft Tissue Tightness, Tenderness L hip Palpation Location Greater Trochanter Palpation Findings Tenderness PT-OP-K Range of Motion Start: 12/28/19 17:20 Freq: Status: Active Protocol: Document 01/01/20 12:48 LRN (Rec: 01/01/20 14:46 LRN [id number]) Hip Goniometric Range of Motion Hip Right Passive Straight Leg Raise 70 Extension 0 Abduction 40 Internal Rotation 50 External Rotation 70 Left Passive Straight Leg Raise 70 Extension 0 Abduction 40 Internal Rotation 45 External Rotation 70 Knee Goniometric Range of Motion Knee Bilateral Patient Position Supine Flexion Active (degrees) 120 Extension Active (degrees) 0 Right Patient Position Supine Flexion Active (degrees) 120 Extension Active (degrees) 0 PT-OP-M Strength Start: 12/28/19 17:20 Freq: Status: Active Protocol: Document 01/21/20 09:04 LRN (Rec: 01/21/20 10:09 LRN [id number]) Hip Strength Hip Manual Muscle Testing Right Flexion (L2) 5 Normal Extension (S1) 3- Fair- Abduction 1 Trace Adduction 3- Fair- External Rotation 5 Normal Internal Rotation 3 Fair Left Flexion (L2) 5 Normal Extension (S1) 3- Fair- Abduction 2 Poor Adduction 4 Good External Rotation 3 Fair Internal Rotation 2+ Poor+ PT-OP-Q Treatments Start: 12/28/19 17:20 Freq: Status: Active Protocol: Document 01/24/20 14:17 LRN (Rec: 01/24/20 15:07 LRN [id number]) Cardio Equipment Recumbent Stepper (Sci-Fit) Duration (Minutes) 8 Resistance 1.7 Seat Position 15 Other back support Therapeutic Exercises Standing Exercises Hip Ext Standing Exercise Name Hip Ext Side bilateral Reps/Minutes 5x 2 each Hip AB Standing Exercise Name Hip AB Side bilateral Reps/Minutes 5x 2 Comments Pt moves slowly side step w jose a Standing Exercise Name hands on grab bar Side bilateral Reps/Minutes 8 mins Side steps Standing Exercise Name Side steps Side bilateral Equipment Used // bars Reps/Minutes up/down x 2 Comments cues for forward facing toes, lead w/heels Gait Training Gait Activity Walk turns Description 10' walk turns Device Used None & with walker Level of Assistance SBA without AD Surface Level Distance/Duration 20' x 4, 23' Treatment Focus Stability with gait. PT-OP-T Assessment and Plan Start: 12/28/19 17:20 Freq: Status: Active Protocol: Document 01/24/20 14:17 LRN (Rec: 01/24/20 15:07 LRN [id number]) Physical Therapy Assessment Goals Five Impairment Lacks appropriate HEP Check Writing Machine Operator Goal (LTG) Pt will be independent on a self care HEP. LTG Duration 03/01/20 (01/21/20: Progressed ) Four Impairment Lower extremity functional scale 58% Short Term Goal (STG) Improve LEFS to at least 65% STG Duration 01/29/20 Correction Goal (LTG) Improve LEFS to at least 75% LTG Duration 03/01/20 3 Impairment decreased L hip strength (2-/5 ) Short Term Goal (STG) L hip strength 3+/5 STG Duration 01/29/20 (01/21/20: No change) Correction Goal (LTG) L hip strength 4+/5 to improve functional mobility LTG Duration 03/01/20 2 Impairment TUG score: 46 secs Short Term Goal (STG) Improve safety with gait per TUG score of 36 or less without use of assistive device STG Duration 01/29/20 (12/2719: TUG = 50 sec's w/o AD, 20 sec with AD) Check Writing Machine Operator Goal (LTG) Improve safety with gait per TUG score of 23 or less with out use of assistive device. LTG Duration 03/01/20 1 Impairment antalgic gait with device Short Term Goal (STG) Patient able to ambulate with minimal limp on level surface with an assistive device walker. STG Duration 01/29/20 Correction Goal (LTG) Patient able to ambulate safely with a cane on level surface outside the home. LTG Duration 03/01/20 Assessment Summary Assessment No L hip pain. R hip pain is like toothache, rated 3/10. R hip injection in 4 days. Pt moves slowly through exercises . Pt having cortisone injection next week to R hip; therefore need to hold therapy for at least 2 weeks. Pt to just focus on walking and can do side leg lifts (AB) if no pain. TUG - 20 sec's, shows pt is improved slightly. R hip pain limiting mobility. Physical Therapy Plan Frequency and Duration Frequency of Treatment 2x/Week Plan of Care Start Date 01/01/20 Plan of Care End Date 03/01/20 Next Visit Focus/Plan Next Note Type Treatment Note Next Visit Plan Assess pt returning after 2 weeks s/p cortisone injection R hip, assess TUG & LEFS. Issue hip stretching (AB) and hip strengthening (bridge with hip ext & hip ext, ER, IR) with pics for pt's HEP ( progressively include hip ext, knee, and core). Continue per PT POC: work on balance and hip strengthening (primarily AB). Modailties as needed for pain.
--- NOTE | 2020-01-24 16:24 | PT.OTN ---
Current Diagnoses Trochanteric bursitis, left hip (01/24/20) Iliotibial band syndrome, left leg (01/24/20) Physical Therapy Treatment Note PT-OP-A Visit Information Start: 12/28/19 17:20 Freq: Status: Active Protocol: Document 01/24/20 14:17 LRN (Rec: 01/24/20 15:07 LRN [id number]) Out-Patient Physical Therapy Visit Information Visit Information Visit Type Treatment Note Visit Start Time 14:16 Visit Stop Time 15:02 Total Visit Minutes 46 Visit Number 7 Number of CHILD WELFARE MANAGER Visits 0 Evaluation Information Evaluation Date 01/01/20 Precautions Precautions Diabetes II Osteopenia Nathan TKA Bruises easily Hx of RBBB PT-OP-B Current Condition Start: 12/28/19 17:20 Freq: Status: Active Protocol: Document 01/01/20 12:48 LRN (Rec: 01/01/20 14:46 LRN [id number]) Current Condition History of Current Condition Onset Date 2 months ago, mid Sep 2019. Current Complaints Kink in L hip with walking, while walking the hip goes inward. History of Current Condition Dx; Trochanteric bursitis L hip and IT band syndrome. Has kink in L hip. Dr Billings gave cortisone injection in the L hip 12/03/19 and had relief of pain in the L hip. She reports sometimes having pain on the R side. She denies pain with sitting. She gets tired in the L hip in the afternoons because she does a lot of walking. She has pain after walking a lot and sometimes the pain moves from the L to the R. She is being referred to physical therapy because of poor gait. Prior Treatments and Tests X-ray of hip: Pt reports no arthritis. Future Testing and Treatments Planned None Developmental History Developmental History Pt reports after L knee surgery she had 4 months of physical therapy, then went to the pool to exercise. She went back to her MD because she was having trouble walking . She states it has been over a year since she has walked normal. Treatment Goals Patient/Caregiver Goals Pt goal is to be able to walk without the hip going in. Pt would like to walk with just a cane. Prior Functional Status Baseline Function- ADL's Independent Baseline Function- Mobility Independent Baseline Function- Gait Walked with a cane. Backwards descending stairs, one step ascending. Baseline Function- Recreation/Hobbies Pool ex 3x/week, last time exercised was in Dec. Current Functional Impairments (Reported) Functional Limitations- Mobility/Gait Uses cane in the home and sometimes without. Outside of home uses walker. Backwards on stairs coming down the stairs, forward going up. Step to gait. has 14 steps at home. No pain. Functional Limitations- Recreation/ Not returned to pool exercise. Hobbies Personal Factors Other Personal Factors That May Effect Controlled HBP Therapy/Recovery Diabetes II Osteopenia L TKA - 12 yrs ago, R TKA - . Hypothyroid, hx of RBBB PT-OP-C Subjective Start: 12/28/19 17:20 Freq: Status: Active Protocol: Document 01/24/20 14:17 LRN (Rec: 01/24/20 15:07 LRN [id number]) OP-PT Subjective Patient Comments Patient Comments Did gardening yesterday 1 hr. Stop every half hour and stretch to sides and frontwards. PT-OP-E Functional Tests Start: 01/24/20 14:44 Freq: Status: Active Protocol: Document 01/24/20 14:17 LRN (Rec: 01/24/20 16:24 LRN [id number]) Functional Tests Timed Up and Go (TUG) Score 20.79 Comments 20.79 with FWW (2nd attempt). 50 without AD TUG Impairment Rating 100% Impaired (Score 20) PT-OP-G Mobility & Gait Start: 12/28/19 17:20 Freq: Status: Active Protocol: Document 01/01/20 12:48 LRN (Rec: 01/01/20 14:46 LRN [id number]) OP Gait Assessment Gait Gait Assistance Required: Independent Distance (Feet) 100 Able to Maintain Weight Bearing Status Yes During Gait Assistive Devices Assistive Device Front Wheeled Walker Gait Deviations General Gait Pattern Flexed Trunk,Lateral Trunk Lean Factors Limiting Gait Function Factors Limiting Gait Function Decreased Activity Tolerance, Decreased Strength,Pain,Poor Balance Comments Gait Comments Gait without an assistive device: Slow pace with Trendelenburg type gait bilaterally. PT-OP-H Neuro Start: 12/28/19 17:20 Freq: Status: Active Protocol: Document 01/01/20 12:48 LRN (Rec: 01/01/20 14:46 LRN [id number]) Sensation Evaluation Gross Sensation Gross Sensation WNL PT-OP-J Posture/Palpation/Skin Start: 12/28/19 17:20 Freq: Status: Active Protocol: Document 01/01/20 12:48 LRN (Rec: 01/01/20 14:46 LRN [id number]) Posture Evaluation Position Standing Evaluation View All positions Head/C-Spine Posture Forward Head T-Spine Posture Increased Kyphosis L-Spine Posture Decreased Lordosis Scapula Posture (L) Depressed Pelvis Posture Anteriorly Tilted Weight Distribution Balanced Hip Posture (L) Externally Rotated Comments Posture Comments Standing: Trunk in R rotation. Sacrum in R rotation. Palpation Assessment Location Hip ER's @ Grtr Trochanter Palpation Location Tendons of hip external rotators. Palpation Findings Soft Tissue Tightness, Tenderness L hip Palpation Location Greater Trochanter Palpation Findings Tenderness PT-OP-K Range of Motion Start: 12/28/19 17:20 Freq: Status: Active Protocol: Document 01/01/20 12:48 LRN (Rec: 01/01/20 14:46 LRN [id number]) Hip Goniometric Range of Motion Hip Right Passive Straight Leg Raise 70 Extension 0 Abduction 40 Internal Rotation 50 External Rotation 70 Left Passive Straight Leg Raise 70 Extension 0 Abduction 40 Internal Rotation 45 External Rotation 70 Knee Goniometric Range of Motion Knee Bilateral Patient Position Supine Flexion Active (degrees) 120 Extension Active (degrees) 0 Right Patient Position Supine Flexion Active (degrees) 120 Extension Active (degrees) 0 PT-OP-M Strength Start: 12/28/19 17:20 Freq: Status: Active Protocol: Document 01/21/20 09:04 LRN (Rec: 01/21/20 10:09 LRN [id number]) Hip Strength Hip Manual Muscle Testing Right Flexion (L2) 5 Normal Extension (S1) 3- Fair- Abduction 1 Trace Adduction 3- Fair- External Rotation 5 Normal Internal Rotation 3 Fair Left Flexion (L2) 5 Normal Extension (S1) 3- Fair- Abduction 2 Poor Adduction 4 Good External Rotation 3 Fair Internal Rotation 2+ Poor+ PT-OP-Q Treatments Start: 12/28/19 17:20 Freq: Status: Active Protocol: Document 01/24/20 14:17 LRN (Rec: 01/24/20 15:07 LRN [id number]) Cardio Equipment Recumbent Stepper (Sci-Fit) Duration (Minutes) 8 Resistance 1.7 Seat Position 15 Other back support Therapeutic Exercises Standing Exercises Hip Ext Standing Exercise Name Hip Ext Side bilateral Reps/Minutes 5x 2 each Hip AB Standing Exercise Name Hip AB Side bilateral Reps/Minutes 5x 2 Comments Pt moves slowly side step w jose a Standing Exercise Name hands on grab bar Side bilateral Reps/Minutes 8 mins Side steps Standing Exercise Name Side steps Side bilateral Equipment Used // bars Reps/Minutes up/down x 2 Comments cues for forward facing toes, lead w/heels Gait Training Gait Activity Walk turns Description 10' walk turns Device Used None & with walker Level of Assistance SBA without AD Surface Level Distance/Duration 20' x 4, 23' Treatment Focus Stability with gait. PT-OP-T Assessment and Plan Start: 12/28/19 17:20 Freq: Status: Active Protocol: Document 01/24/20 14:17 LRN (Rec: 01/24/20 15:07 LRN [id number]) Physical Therapy Assessment Goals Five Impairment Lacks appropriate HEP Ldr Rn Goal (LTG) Pt will be independent on a self care HEP. LTG Duration 03/01/20 (01/21/20: Progressed ) Four Impairment Lower extremity functional scale 58% Short Term Goal (STG) Improve LEFS to at least 65% STG Duration 01/29/20 Ldr Rn Goal (LTG) Improve LEFS to at least 75% LTG Duration 03/01/20 3 Impairment decreased L hip strength (2-/5 ) Short Term Goal (STG) L hip strength 3+/5 STG Duration 01/29/20 (01/21/20: No change) Retirement Goal (LTG) L hip strength 4+/5 to improve functional mobility LTG Duration 03/01/20 2 Impairment TUG score: 46 secs Short Term Goal (STG) Improve safety with gait per TUG score of 36 or less without use of assistive device STG Duration 01/29/20 (12/2719: TUG = 50 sec's w/o AD, 20 sec with AD) Ldr Rn Goal (LTG) Improve safety with gait per TUG score of 23 or less with out use of assistive device. LTG Duration 03/01/20 1 Impairment antalgic gait with device Short Term Goal (STG) Patient able to ambulate with minimal limp on level surface with an assistive device walker. STG Duration 01/29/20 Retirement Goal (LTG) Patient able to ambulate safely with a cane on level surface outside the home. LTG Duration 03/01/20 Assessment Summary Assessment No L hip pain. R hip pain is like toothache, rated 3/10. R hip injection in 4 days. Pt moves slowly through exercises . Pt having cortisone injection next week to R hip; therefore need to hold therapy for at least 2 weeks. Pt to just focus on walking and can do side leg lifts (AB) if no pain. TUG - 20 sec's, shows pt is improved slightly. R hip pain limiting mobility. Physical Therapy Plan Frequency and Duration Frequency of Treatment 2x/Week Plan of Care Start Date 01/01/20 Plan of Care End Date 03/01/20 Next Visit Focus/Plan Next Note Type Treatment Note Next Visit Plan Assess pt returning after 2 weeks s/p cortisone injection R hip, assess TUG & LEFS. Issue hip stretching (AB) and hip strengthening (bridge with hip ext & hip ext, ER, IR) with pics for pt's HEP ( progressively include hip ext, knee, and core). Continue per PT POC: work on balance and hip strengthening (primarily AB). Modailties as needed for pain.
--- NOTE | 2020-02-12 11:14 | PT.OTN ---
Current Diagnoses Trochanteric bursitis, left hip (02/12/20) Iliotibial band syndrome, left leg (02/12/20) Physical Therapy Treatment Note PT-OP-A Visit Information Start: 12/28/19 17:20 Freq: Status: Active Protocol: Document 02/12/20 09:05 LRN (Rec: 02/12/20 09:52 LRN [id number]) Out-Patient Physical Therapy Visit Information Visit Information Visit Type Treatment Note Visit Start Time 09:05 Visit Stop Time 09:49 Total Visit Minutes 44 Visit Number 8 Evaluation Information Evaluation Date 01/01/20 Precautions Precautions Diabetes II Osteopenia Nathan TKA Bruises easily Hx of RBBB PT-OP-B Current Condition Start: 12/28/19 17:20 Freq: Status: Active Protocol: Document 01/01/20 12:48 LRN (Rec: 01/01/20 14:46 LRN [id number]) Current Condition History of Current Condition Onset Date 2 months ago, mid Sep 2019. Current Complaints Kink in L hip with walking, while walking the hip goes inward. History of Current Condition Dx; Trochanteric bursitis L hip and IT band syndrome. Has kink in L hip. Dr Billings gave cortisone injection in the L hip 12/03/19 and had relief of pain in the L hip. She reports sometimes having pain on the R side. She denies pain with sitting. She gets tired in the L hip in the afternoons because she does a lot of walking. She has pain after walking a lot and sometimes the pain moves from the L to the R. She is being referred to physical therapy because of poor gait. Prior Treatments and Tests X-ray of hip: Pt reports no arthritis. Future Testing and Treatments Planned None Developmental History Developmental History Pt reports after L knee surgery she had 4 months of physical therapy, then went to the pool to exercise. She went back to her MD because she was having trouble walking . She states it has been over a year since she has walked normal. Treatment Goals Patient/Caregiver Goals Pt goal is to be able to walk without the hip going in. Pt would like to walk with just a cane. Prior Functional Status Baseline Function- ADL's Independent Baseline Function- Mobility Independent Baseline Function- Gait Walked with a cane. Backwards descending stairs, one step ascending. Baseline Function- Recreation/Hobbies Pool ex 3x/week, last time exercised was in Dec. Current Functional Impairments (Reported) Functional Limitations- Mobility/Gait Uses cane in the home and sometimes without. Outside of home uses walker. Backwards on stairs coming down the stairs, forward going up. Step to gait. has 14 steps at home. No pain. Functional Limitations- Recreation/ Not returned to pool exercise. Hobbies Personal Factors Other Personal Factors That May Effect Controlled HBP Therapy/Recovery Diabetes II Osteopenia L TKA - 12 yrs ago, R TKA - . Hypothyroid, hx of RBBB PT-OP-C Subjective Start: 12/28/19 17:20 Freq: Status: Active Protocol: Document 02/12/20 09:05 LRN (Rec: 02/12/20 09:52 LRN [id number]) OP-PT Subjective Patient Comments Patient Comments A week after the injection she had no pain. The next day she returned to walking 5x/ week on flat land 30', then a couple days later walked 1 hr, and is still walking 5x/week. Patient Questionnaires Lower Extremity Functional Scale LEFS Score 56 LEFS Impairment 20 to 39% Impaired (Score 48- 62) PT-OP-E Functional Tests Start: 01/24/20 14:44 Freq: Status: Active Protocol: Document 02/12/20 09:05 LRN (Rec: 02/12/20 09:52 LRN [id number]) Functional Tests Timed Up and Go (TUG) Score 20.76 Comments 20.79 with FWW. 34 without AD TUG Impairment Rating 100% Impaired (Score 20) PT-OP-G Mobility & Gait Start: 12/28/19 17:20 Freq: Status: Active Protocol: Document 01/01/20 12:48 LRN (Rec: 01/01/20 14:46 LRN [id number]) OP Gait Assessment Gait Gait Assistance Required: Independent Distance (Feet) 100 Able to Maintain Weight Bearing Status Yes During Gait Assistive Devices Assistive Device Front Wheeled Walker Gait Deviations General Gait Pattern Flexed Trunk,Lateral Trunk Lean Factors Limiting Gait Function Factors Limiting Gait Function Decreased Activity Tolerance, Decreased Strength,Pain,Poor Balance Comments Gait Comments Gait without an assistive device: Slow pace with Trendelenburg type gait bilaterally. PT-OP-H Neuro Start: 12/28/19 17:20 Freq: Status: Active Protocol: Document 01/01/20 12:48 LRN (Rec: 01/01/20 14:46 LRN [id number]) Sensation Evaluation Gross Sensation Gross Sensation WNL PT-OP-J Posture/Palpation/Skin Start: 12/28/19 17:20 Freq: Status: Active Protocol: Document 01/01/20 12:48 LRN (Rec: 01/01/20 14:46 LRN [id number]) Posture Evaluation Position Standing Evaluation View All positions Head/C-Spine Posture Forward Head T-Spine Posture Increased Kyphosis L-Spine Posture Decreased Lordosis Scapula Posture (L) Depressed Pelvis Posture Anteriorly Tilted Weight Distribution Balanced Hip Posture (L) Externally Rotated Comments Posture Comments Standing: Trunk in R rotation. Sacrum in R rotation. Palpation Assessment Location Hip ER's @ Grtr Trochanter Palpation Location Tendons of hip external rotators. Palpation Findings Soft Tissue Tightness, Tenderness L hip Palpation Location Greater Trochanter Palpation Findings Tenderness PT-OP-K Range of Motion Start: 12/28/19 17:20 Freq: Status: Active Protocol: Document 01/01/20 12:48 LRN (Rec: 01/01/20 14:46 LRN [id number]) Hip Goniometric Range of Motion Hip Right Passive Straight Leg Raise 70 Extension 0 Abduction 40 Internal Rotation 50 External Rotation 70 Left Passive Straight Leg Raise 70 Extension 0 Abduction 40 Internal Rotation 45 External Rotation 70 Knee Goniometric Range of Motion Knee Bilateral Patient Position Supine Flexion Active (degrees) 120 Extension Active (degrees) 0 Right Patient Position Supine Flexion Active (degrees) 120 Extension Active (degrees) 0 PT-OP-M Strength Start: 12/28/19 17:20 Freq: Status: Active Protocol: Document 01/21/20 09:04 LRN (Rec: 01/21/20 10:09 LRN [id number]) Hip Strength Hip Manual Muscle Testing Right Flexion (L2) 5 Normal Extension (S1) 3- Fair- Abduction 1 Trace Adduction 3- Fair- External Rotation 5 Normal Internal Rotation 3 Fair Left Flexion (L2) 5 Normal Extension (S1) 3- Fair- Abduction 2 Poor Adduction 4 Good External Rotation 3 Fair Internal Rotation 2+ Poor+ PT-OP-Q Treatments Start: 12/28/19 17:20 Freq: Status: Active Protocol: Document 02/12/20 09:05 LRN (Rec: 02/12/20 09:52 LRN [id number]) Therapeutic Exercises Supine Exercises bridge Supine Exercise Name with resisted hip abd (Bridge > Hip AB > Relax) Equipment Used Lev 1 T-band Reps/Minutes 10 x with & without T-Band hip ABD Supine Exercise Name unilateral hip abd Side right Reps/Minutes 15 x 2 - 8 min Comments Extra time for training: Leading with heel Sidelying Exercises clamshell Sidelying Exercise Name Clamshell Side right Reps/Minutes 15 x 2 Comments Pt assisting to achieve full ER, f/b ecc ER on lowering. Gait Training Gait Activity Walk turns Description 10' walk turns Device Used With & without walker Level of Assistance CGA without AD Surface Level Distance/Duration 20' x 2 with rest period between. Treatment Focus Stability with gait. Comments Extra time taken for pt instructions and rest period. Self-Care/Home Management Treatment Education Patient Education Home Exercise Program Other Education Pt had questions regarding her level of activity with ex ( walking with walker outside) at home. Discussed and made recommendations to her walking program for decreasing her walking time to 30' for painfree gait with walker and discussed increasing her time of walking slowly as tolerated . Reinforced that pt is to be mindful of pain at the R hip and to avoid exercising through her pain. Activities Self-Care/Home Management Activities Issued & reviewed HEP: Clamshell & supine hip AB. Pt I/S to start bridging with T-Band aound knees. PT-OP-T Assessment and Plan Start: 12/28/19 17:20 Freq: Status: Active Protocol: Document 02/12/20 09:05 MG (Rec: 02/12/20 09:52 LRN [id number]) Physical Therapy Assessment Goals Five Impairment Lacks appropriate HEP Prison Goal (LTG) Pt will be independent on a self care HEP. LTG Duration 03/01/20 (01/21/20: Progressed ) Four Impairment Lower extremity functional scale 58% Short Term Goal (STG) Improve LEFS to at least 65% STG Duration 01/29/20 Prison Goal (LTG) Improve LEFS to at least 75% LTG Duration 03/01/20 3 Impairment decreased L hip strength (2-/5 ) Short Term Goal (STG) L hip strength 3+/5 STG Duration 01/29/20 (01/21/20: No change) Prison Goal (LTG) L hip strength 4+/5 to improve functional mobility LTG Duration 03/01/20 2 Impairment TUG score: 46 secs Short Term Goal (STG) Improve safety with gait per TUG score of 36 or less without use of assistive device STG Duration 01/29/20 (12/2719: TUG = 50 sec's w/o AD, 20 sec with AD) Prison Goal (LTG) Improve safety with gait per TUG score of 23 or less with out use of assistive device. LTG Duration 03/01/20 1 Impairment antalgic gait with device Short Term Goal (STG) Patient able to ambulate with minimal limp on level surface with an assistive device walker. STG Duration 01/29/20 Prison Goal (LTG) Patient able to ambulate safely with a cane on level surface outside the home. LTG Duration 03/01/20 Assessment Summary Assessment Pt shows no change with gait stability using a walker, but much improved without a walker . Pt stability with gait without a walker is much improved per TUG. Function has improved since cortisone injection per LEFS. Pt pain in R hip is much reduced, pain on palpation or with exercise . Pt is having pain after walking > 30' and has been advised to decrease walking time for painfree gait. Not able to progress quickly with HEP due to pt needing lots of explanation with exs and handouts. Physical Therapy Plan Frequency and Duration Frequency of Treatment 2x/Week Plan of Care Start Date 01/01/20 Plan of Care End Date 03/01/20 Next Visit Focus/Plan Next Note Type Treatment Note Next Visit Plan Issue: Bridging with T-Band around knees. hip stretching (AB) and hip strengthening ( bridge with hip ext & sit or standing hip ext, ER, IR) with pics for pt's HEP ( progressively include hip ext, knee, and core). Continue per PT POC: work on balance and hip strengthening (primarily AB). Modailties as needed for pain.
--- NOTE | 2020-02-14 18:55 | PT.OTN ---
Current Diagnoses Trochanteric bursitis, left hip (02/14/20) Iliotibial band syndrome, left leg (02/14/20) Physical Therapy Treatment Note PT-OP-A Visit Information Start: 12/28/19 17:20 Freq: Status: Active Protocol: Document 02/14/20 09:02 LRN (Rec: 02/14/20 10:05 LRN [id number]) Out-Patient Physical Therapy Visit Information Visit Information Visit Type Progress Note Visit Start Time 09:02 Visit Stop Time 09:45 Total Visit Minutes 43 Visit Number 9 Evaluation Information Evaluation Date 01/01/20 Precautions Precautions Diabetes II Osteopenia Nathan TKA Bruises easily Hx of RBBB PT-OP-B Current Condition Start: 12/28/19 17:20 Freq: Status: Active Protocol: Document 01/01/20 12:48 LRN (Rec: 01/01/20 14:46 LRN [id number]) Current Condition History of Current Condition Onset Date 2 months ago, mid Sep 2019. Current Complaints Kink in L hip with walking, while walking the hip goes inward. History of Current Condition Dx; Trochanteric bursitis L hip and IT band syndrome. Has kink in L hip. Dr Billings gave cortisone injection in the L hip 12/03/19 and had relief of pain in the L hip. She reports sometimes having pain on the R side. She denies pain with sitting. She gets tired in the L hip in the afternoons because she does a lot of walking. She has pain after walking a lot and sometimes the pain moves from the L to the R. She is being referred to physical therapy because of poor gait. Prior Treatments and Tests X-ray of hip: Pt reports no arthritis. Future Testing and Treatments Planned None Developmental History Developmental History Pt reports after L knee surgery she had 4 months of physical therapy, then went to the pool to exercise. She went back to her MD because she was having trouble walking . She states it has been over a year since she has walked normal. Treatment Goals Patient/Caregiver Goals Pt goal is to be able to walk without the hip going in. Pt would like to walk with just a cane. Prior Functional Status Baseline Function- ADL's Independent Baseline Function- Mobility Independent Baseline Function- Gait Walked with a cane. Backwards descending stairs, one step ascending. Baseline Function- Recreation/Hobbies Pool ex 3x/week, last time exercised was in Dec. Current Functional Impairments (Reported) Functional Limitations- Mobility/Gait Uses cane in the home and sometimes without. Outside of home uses walker. Backwards on stairs coming down the stairs, forward going up. Step to gait. has 14 steps at home. No pain. Functional Limitations- Recreation/ Not returned to pool exercise. Hobbies Personal Factors Other Personal Factors That May Effect Controlled HBP Therapy/Recovery Diabetes II Osteopenia L TKA - 12 yrs ago, R TKA - . Hypothyroid, hx of RBBB PT-OP-C Subjective Start: 12/28/19 17:20 Freq: Status: Active Protocol: Document 02/14/20 09:02 LRN (Rec: 02/14/20 10:05 LRN [id number]) OP-PT Subjective Patient Comments Patient Comments States she has cut back on walking and her hip doesn't hurt to walk. She is using her walker and her cane occasionally in her kitchen for very short distances. PT-OP-E Functional Tests Start: 01/24/20 14:44 Freq: Status: Active Protocol: Document 02/12/20 09:05 LRN (Rec: 02/12/20 09:52 LRN [id number]) Functional Tests Timed Up and Go (TUG) Score 20.76 Comments 20.79 with FWW. 34 without AD TUG Impairment Rating 100% Impaired (Score 20) PT-OP-G Mobility & Gait Start: 12/28/19 17:20 Freq: Status: Active Protocol: Document 01/01/20 12:48 LRN (Rec: 01/01/20 14:46 LRN [id number]) OP Gait Assessment Gait Gait Assistance Required: Independent Distance (Feet) 100 Able to Maintain Weight Bearing Status Yes During Gait Assistive Devices Assistive Device Front Wheeled Walker Gait Deviations General Gait Pattern Flexed Trunk,Lateral Trunk Lean Factors Limiting Gait Function Factors Limiting Gait Function Decreased Activity Tolerance, Decreased Strength,Pain,Poor Balance Comments Gait Comments Gait without an assistive device: Slow pace with Trendelenburg type gait bilaterally. PT-OP-H Neuro Start: 12/28/19 17:20 Freq: Status: Active Protocol: Document 01/01/20 12:48 LRN (Rec: 01/01/20 14:46 LRN [id number]) Sensation Evaluation Gross Sensation Gross Sensation WNL PT-OP-J Posture/Palpation/Skin Start: 12/28/19 17:20 Freq: Status: Active Protocol: Document 01/01/20 12:48 LRN (Rec: 01/01/20 14:46 LRN [id number]) Posture Evaluation Position Standing Evaluation View All positions Head/C-Spine Posture Forward Head T-Spine Posture Increased Kyphosis L-Spine Posture Decreased Lordosis Scapula Posture (L) Depressed Pelvis Posture Anteriorly Tilted Weight Distribution Balanced Hip Posture (L) Externally Rotated Comments Posture Comments Standing: Trunk in R rotation. Sacrum in R rotation. Palpation Assessment Location Hip ER's @ Grtr Trochanter Palpation Location Tendons of hip external rotators. Palpation Findings Soft Tissue Tightness, Tenderness L hip Palpation Location Greater Trochanter Palpation Findings Tenderness PT-OP-K Range of Motion Start: 12/28/19 17:20 Freq: Status: Active Protocol: Document 01/01/20 12:48 LRN (Rec: 01/01/20 14:46 LRN [id number]) Hip Goniometric Range of Motion Hip Right Passive Straight Leg Raise 70 Extension 0 Abduction 40 Internal Rotation 50 External Rotation 70 Left Passive Straight Leg Raise 70 Extension 0 Abduction 40 Internal Rotation 45 External Rotation 70 Knee Goniometric Range of Motion Knee Bilateral Patient Position Supine Flexion Active (degrees) 120 Extension Active (degrees) 0 Right Patient Position Supine Flexion Active (degrees) 120 Extension Active (degrees) 0 PT-OP-M Strength Start: 12/28/19 17:20 Freq: Status: Active Protocol: Document 02/14/20 09:02 LRN (Rec: 02/14/20 10:05 LRN [id number]) Hip Strength Hip Manual Muscle Testing Right Flexion (L2) 5 Normal Extension (S1) 3- Fair- Abduction 1 Trace Adduction 3- Fair- External Rotation 5 Normal Internal Rotation 3 Fair Left Flexion (L2) 5 Normal Extension (S1) 3- Fair- Abduction 2 Poor Adduction 4 Good External Rotation 4- Good- Internal Rotation 2+ Poor+ PT-OP-Q Treatments Start: 12/28/19 17:20 Freq: Status: Active Protocol: Document 02/14/20 09:02 LRN (Rec: 02/14/20 10:05 LRN [id number]) Therapeutic Exercises Supine Exercises bridge Supine Exercise Name with resisted hip abd (Bridge > Hip AB > Relax) Equipment Used Lev 1 T-band Reps/Minutes 10 x with & without T-Band hip ABD Supine Exercise Name hip abd Side bilateral Reps/Minutes 15 x 2 - 8 min Comments Extra time for training: Leading with heel SLR Supine Exercise Name SLR Side bilateral Reps/Minutes 2' Comments Good hip flexor strength. Sidelying Exercises Hip AB/AD Sidelying Exercise Name Hip AB/AD Side bilateral Reps/Minutes 3' Comments Hip AB very weak. Fair strength with AD's clamshell Sidelying Exercise Name Clamshell Side bilateral Reps/Minutes 15 x 2 Comments Pt assisting to achieve full ER, f/b ecc ER on lowering. Sitting Exercises Hip ER/IR Sitting Exercise Name Active ER/IR Side bilateral Reps/Minutes 10x Seated hamstring curl Sitting Exercise Name Seated hamstring curl Side bilateral Resistance Level 2 tband Reps/Minutes 2x10 Comments core activation/upright posture Gait Training Gait Activity Gait with Assist Device Description Gait training with walker to limit hip drop bilaterally Device Used walker & cane Surface Level Distance/Duration hallway 20' x 4 Treatment Focus Eliminate Trendelenburg bilaterally Comments Pt able to control hip drop with use of FWW, not with cane . I/S pt to use walker until she is able to walk without hip drop. Self-Care/Home Management Treatment Education Patient Education Home Exercise Program Activities Self-Care/Home Management Activities Issued HEP, extra time taken to review ex's (sup hip AB/AD; sitting hip IR, and knee flex ) PT-OP-T Assessment and Plan Start: 12/28/19 17:20 Freq: Status: Active Protocol: Document 02/14/20 09:02 LRN (Rec: 02/14/20 10:05 LRN [id number]) Physical Therapy Assessment Rehab Potential Rehabilitation Potential Good Evaluation Complexity Number of Personal Factors/Comorbidities 3 or More Number of Body Systems Impaired 3 Clinical Presentation at Evaluation Evolving Impairments Impairments Balance,Gait,Strength Goals Five Impairment Lacks appropriate HEP Vp Genetic Goal (LTG) Pt will be independent on a self care HEP. LTG Duration 05/14/20 (02/14/20: Progressing) Four Impairment Lower extremity functional scale 58% Short Term Goal (STG) Improve LEFS to at least 65% STG Duration 01/29/20 (02/08/20: MET GOAL. LEFS = 81% of maximal function ) Vp Genetic Goal (LTG) Improve LEFS to at least 75% LTG Duration 03/01/20 (02/08/20: MET GOAL. LEFS = 81% of maximal function ) 3 Impairment decreased L hip strength (2-/5 ) Short Term Goal (STG) L hip strength 3+/5 STG Duration 01/29/20 (02/14/20: No change) Halfway Goal (LTG) L hip strength 4/5 to improve functional mobility LTG Duration 05/14/20 2 Impairment TUG score: 46 secs Short Term Goal (STG) Improve safety with gait per TUG score of 40 or less without use of assistive device. (01/24/20: TUG = 20 sec with FWW, 50 sec's w/o AD) STG Duration 01/29/20 (01/24/20: TUG = 20 sec with FWW, 50 sec's w/o AD) Halfway Goal (LTG) Improve safety with gait per TUG score of 30 or less with out use of assistive device. LTG Duration 05/14/20 1 Impairment antalgic gait with device Short Term Goal (STG) Patient able to ambulate with minimal limp on level surface with an assistive device walker. STG Duration 01/29/20 (02/24/20: MET GOAL) Vp Genetic Goal (LTG) Patient able to ambulate safely with a cane on level surface outside the home. LTG Duration 05/14/20 Assessment Summary Assessment Pt presents with ability to walk with minimal limpt using a FWW when concentrating on her gait. She is able to ambulate with a quad cane on the L side with notable drop of her R pelvis due to hip AB weakness. Without an assistive device the pt has drop of pelvis bilaterally, also due to weak hip AB's. The pt risks reccurence of L hip bursitis without further gait training and strengthening of hip hip AB's. Since her cortisone injection she has had good relief of her L hip pain and would therefore benefit from skilled physical therapy for gait training and hip strengthening to reduce the stress/strain on her greater trochanteric bursa. Unfortunately, with the current situation of COVID-19, her rehabilitation will be delayed for at least the next couple of weeks and maybe even longer; therefore a new plan of care is needed that will hopefully allow her the opportunity to return to therapy for completion of her rehabilitation program. We will resume physical therapy 2x/week when appropriate and safe for the pt to return. Physical Therapy Plan Frequency and Duration Frequency of Treatment 2x/Week Plan of Care Start Date 02/14/20 Plan of Care End Date 05/14/20 Therapeutic Interventions Therapeutic Interventions Aquatic Therapy,Balance Training,Gait Training,Home Exercise Program,Manual Therapy,Neuromuscular Re- education,Patient/Caregiver Education,Self-Care/Home Management,Soft Tissue Mobilization,Therapeutic Exercises Modalities Cold Pack/Ice Massage,Hot Packs,Iontophoresis,Ultrasound Other Therapeutic Interventions Iontophoresis: 4 mg/mL Dexamethasone with Sodium Phosphate. Next Visit Focus/Plan Next Note Type Treatment Note Next Visit Plan Continue per PT POC: work on balance, gait, and hip strengthening (primarily AB, ext). Modalities as needed for pain. If needed, issue bridging with T-Band around knees, hip strengthening ( standing hip ext, IR, AB), pics for pt's HEP ( progressively include hip ext, knee, and core).
--- NOTE | 2020-02-14 18:56 | PT.OPPOC ---
Physical, Occupational & Speech Therapy At [facility] Current Diagnoses Trochanteric bursitis, left hip (02/14/20) Iliotibial band syndrome, left leg (02/14/20) Visit Care Team Role Provider Type Juli Harrell Primary Care Provider Non-Staff Specialty: Internal Medicine Address: [address] [place] [address], [id number] Email: Ander Billings MD Attending Provider Physician Referring Provider Specialty: Orthopedic Surgery Address: [address] [place] [address], [id number] Email: [email or web address] Plan Of Care PT-OP-T Assessment and Plan Start: 12/28/19 17:20 Freq: Status: Active Protocol: Document 02/14/20 09:02 LRN (Rec: 02/14/20 10:05 LRN [id number]) Physical Therapy Assessment Rehab Potential Rehabilitation Potential Good Evaluation Complexity Number of Personal Factors/Comorbidities 3 or More Number of Body Systems Impaired 3 Clinical Presentation at Evaluation Evolving Impairments Impairments Balance,Gait,Strength Goals Five Impairment Lacks appropriate HEP Long-Term Goal (LTG) Pt will be independent on a self care HEP. LTG Duration 05/14/20 (02/14/20: Progressing) Four Impairment Lower extremity functional scale 58% Short Term Goal (STG) Improve LEFS to at least 65% STG Duration 01/29/20 (02/08/20: MET GOAL. LEFS = 81% of maximal function ) Long-Term Goal (LTG) Improve LEFS to at least 75% LTG Duration 03/01/20 (02/08/20: MET GOAL. LEFS = 81% of maximal function ) 3 Impairment decreased L hip strength (2-/5 ) Short Term Goal (STG) L hip strength 3+/5 STG Duration 01/29/20 (02/14/20: No change) High Wire Artist Goal (LTG) L hip strength 4/5 to improve functional mobility LTG Duration 05/14/20 2 Impairment TUG score: 46 secs Short Term Goal (STG) Improve safety with gait per TUG score of 40 or less without use of assistive device. (01/24/20: TUG = 20 sec with FWW, 50 sec's w/o AD) STG Duration 01/29/20 (01/24/20: TUG = 20 sec with FWW, 50 sec's w/o AD) High Wire Artist Goal (LTG) Improve safety with gait per TUG score of 30 or less with out use of assistive device. LTG Duration 05/14/20 1 Impairment antalgic gait with device Short Term Goal (STG) Patient able to ambulate with minimal limp on level surface with an assistive device walker. STG Duration 01/29/20 (02/24/20: MET GOAL) Long-Term Goal (LTG) Patient able to ambulate safely with a cane on level surface outside the home. LTG Duration 05/14/20 Assessment Summary Assessment Pt presents with ability to walk with minimal limpt using a FWW when concentrating on her gait. She is able to ambulate with a quad cane on the L side with notable drop of her R pelvis due to hip AB weakness. Without an assistive device the pt has drop of pelvis bilaterally, also due to weak hip AB's. The pt risks reccurence of L hip bursitis without further gait training and strengthening of hip hip AB's. Since her cortisone injection she has had good relief of her L hip pain and would therefore benefit from skilled physical therapy for gait training and hip strengthening to reduce the stress/strain on her greater trochanteric bursa. Unfortunately, with the current situation of COVID-19, her rehabilitation will be delayed for at least the next couple of weeks and maybe even longer; therefore a new plan of care is needed that will hopefully allow her the opportunity to return to therapy for completion of her rehabilitation program. We will resume physical therapy 2x/week when appropriate and safe for the pt to return. Physical Therapy Plan Frequency and Duration Frequency of Treatment 2x/Week Plan of Care Start Date 02/14/20 Plan of Care End Date 05/14/20 Therapeutic Interventions Therapeutic Interventions Aquatic Therapy,Balance Training,Gait Training,Home Exercise Program,Manual Therapy,Neuromuscular Re- education,Patient/Caregiver Education,Self-Care/Home Management,Soft Tissue Mobilization,Therapeutic Exercises Modalities Cold Pack/Ice Massage,Hot Packs,Iontophoresis,Ultrasound Other Therapeutic Interventions Iontophoresis: 4 mg/mL Dexamethasone with Sodium Phosphate. Next Visit Focus/Plan Next Note Type Treatment Note Next Visit Plan Continue per PT POC: work on balance, gait, and hip strengthening (primarily AB, ext). Modalities as needed for pain. If needed, issue bridging with T-Band around knees, hip strengthening ( standing hip ext, IR, AB), pics for pt's HEP ( progressively include hip ext, knee, and core). Plan of Care Dates Plan of Care Start Date 02/14/20 Plan of Care End Date 05/14/20 Electronically Signed by: Constanza Harper, PT 02/14/20 [id number] Please Sign and Return: I have reviewed this Plan of Care and certify that the skilled therapy services above are required to meet the patient?s needs. Physician Signature Date Printed Name and Credentials Clinical Instructor Signature Printed Name and Credentials
--- NOTE | 2020-03-31 16:20 | PT.OPDS ---
Current Diagnoses Trochanteric bursitis, left hip (02/14/20) Iliotibial band syndrome, left leg (02/14/20) Visit Care Team Role Provider Type Juli Harrell Primary Care Provider Non-Staff Specialty: Internal Medicine Address: [address] [place] [address], [id number] Email: Ander Billings MD Attending Provider Physician Referring Provider Specialty: Orthopedic Surgery Address: [address] [place] [address], [id number] Email: [email or web address] Visit Number Visit Number 9 Discharge Summary PT-OP-B Current Condition Start: 12/28/19 17:20 Freq: Status: Active Protocol: Document 01/01/20 12:48 LRN (Rec: 01/01/20 14:46 LRN [id number]) Current Condition History of Current Condition Onset Date 2 months ago, mid Sep 2019. Current Complaints Kink in L hip with walking, while walking the hip goes inward. History of Current Condition Dx; Trochanteric bursitis L hip and IT band syndrome. Has kink in L hip. Dr Billings gave cortisone injection in the L hip 12/03/19 and had relief of pain in the L hip. She reports sometimes having pain on the R side. She denies pain with sitting. She gets tired in the L hip in the afternoons because she does a lot of walking. She has pain after walking a lot and sometimes the pain moves from the L to the R. She is being referred to physical therapy because of poor gait. Prior Treatments and Tests X-ray of hip: Pt reports no arthritis. Future Testing and Treatments Planned None Developmental History Developmental History Pt reports after L knee surgery she had 4 months of physical therapy, then went to the pool to exercise. She went back to her MD because she was having trouble walking . She states it has been over a year since she has walked normal. Treatment Goals Patient/Caregiver Goals Pt goal is to be able to walk without the hip going in. Pt would like to walk with just a cane. Prior Functional Status Baseline Function- ADL's Independent Baseline Function- Mobility Independent Baseline Function- Gait Walked with a cane. Backwards descending stairs, one step ascending. Baseline Function- Recreation/Hobbies Pool ex 3x/week, last time exercised was in Dec. Current Functional Impairments (Reported) Functional Limitations- Mobility/Gait Uses cane in the home and sometimes without. Outside of home uses walker. Backwards on stairs coming down the stairs, forward going up. Step to gait. has 14 steps at home. No pain. Functional Limitations- Recreation/ Not returned to pool exercise. Hobbies Personal Factors Other Personal Factors That May Effect Controlled HBP Therapy/Recovery Diabetes II Osteopenia L TKA - 12 yrs ago, R TKA - . Hypothyroid, hx of RBBB PT-OP-C Subjective Start: 12/28/19 17:20 Freq: Status: Active Protocol: Document 03/31/20 15:54 LRN (Rec: 03/31/20 16:20 LRN [id number]) OP-PT Subjective Patient Comments Patient Comments Pt will check with Dr. Martini regarding when to return to physical therapy. States she will check back in a month. She understands she will need a new referral to return to therapy. PT-OP-E Functional Tests Start: 01/24/20 14:44 Freq: Status: Active Protocol: Document 02/12/20 09:05 LRN (Rec: 02/12/20 09:52 LRN [id number]) Functional Tests Timed Up and Go (TUG) Score 20.76 Comments 20.79 with FWW. 34 without AD TUG Impairment Rating 100% Impaired (Score 20) PT-OP-G Mobility & Gait Start: 12/28/19 17:20 Freq: Status: Active Protocol: Document 01/01/20 12:48 LRN (Rec: 01/01/20 14:46 LRN [id number]) OP Gait Assessment Gait Gait Assistance Required: Independent Distance (Feet) 100 Able to Maintain Weight Bearing Status Yes During Gait Assistive Devices Assistive Device Front Wheeled Walker Gait Deviations General Gait Pattern Flexed Trunk,Lateral Trunk Lean Factors Limiting Gait Function Factors Limiting Gait Function Decreased Activity Tolerance, Decreased Strength,Pain,Poor Balance Comments Gait Comments Gait without an assistive device: Slow pace with Trendelenburg type gait bilaterally. PT-OP-H Neuro Start: 12/28/19 17:20 Freq: Status: Active Protocol: Document 01/01/20 12:48 LRN (Rec: 01/01/20 14:46 LRN [id number]) Sensation Evaluation Gross Sensation Gross Sensation WNL PT-OP-J Posture/Palpation/Skin Start: 12/28/19 17:20 Freq: Status: Active Protocol: Document 01/01/20 12:48 LRN (Rec: 01/01/20 14:46 LRN [id number]) Posture Evaluation Position Standing Evaluation View All positions Head/C-Spine Posture Forward Head T-Spine Posture Increased Kyphosis L-Spine Posture Decreased Lordosis Scapula Posture (L) Depressed Pelvis Posture Anteriorly Tilted Weight Distribution Balanced Hip Posture (L) Externally Rotated Comments Posture Comments Standing: Trunk in R rotation. Sacrum in R rotation. Palpation Assessment Location Hip ER's @ [facility] Trochanter Palpation Location Tendons of hip external rotators. Palpation Findings Soft Tissue Tightness, Tenderness L hip Palpation Location Greater Trochanter Palpation Findings Tenderness PT-OP-K Range of Motion Start: 12/28/19 17:20 Freq: Status: Active Protocol: Document 01/01/20 12:48 LRN (Rec: 01/01/20 14:46 LRN [id number]) Hip Goniometric Range of Motion Hip Right Passive Straight Leg Raise 70 Extension 0 Abduction 40 Internal Rotation 50 External Rotation 70 Left Passive Straight Leg Raise 70 Extension 0 Abduction 40 Internal Rotation 45 External Rotation 70 Knee Goniometric Range of Motion Knee Bilateral Patient Position Supine Flexion Active (degrees) 120 Extension Active (degrees) 0 Right Patient Position Supine Flexion Active (degrees) 120 Extension Active (degrees) 0 PT-OP-M Strength Start: 12/28/19 17:20 Freq: Status: Active Protocol: Document 02/14/20 09:02 LRN (Rec: 02/14/20 10:05 LRN [id number]) Hip Strength Hip Manual Muscle Testing Right Flexion (L2) 5 Normal Extension (S1) 3- Fair- Abduction 1 Trace Adduction 3- Fair- External Rotation 5 Normal Internal Rotation 3 Fair Left Flexion (L2) 5 Normal Extension (S1) 3- Fair- Abduction 2 Poor Adduction 4 Good External Rotation 4- Good- Internal Rotation 2+ Poor+ PT-OP-T Assessment and Plan Start: 12/28/19 17:20 Freq: Status: Active Protocol: Document 03/31/20 15:54 LRN (Rec: 03/31/20 16:20 LRN [id number]) Physical Therapy Assessment Goals Five Impairment Lacks appropriate HEP Snf Goal (LTG) Pt will be independent on a self care HEP. (03/31/20: Pt unavailable for final assessment due to Covid- 19 restrictions). LTG Duration 05/14/20 (02/14/20: Progressing) Four Impairment Lower extremity functional scale 58% Short Term Goal (STG) Improve LEFS to at least 65%. (03/31/20: Pt unavailable for final assessment due to Covid- 19 restrictions). STG Duration 01/29/20 (02/08/20: MET GOAL. LEFS = 81% of maximal function ) Teacher Of The Sight Impaired Goal (LTG) Improve LEFS to at least 75%. (03/31/20: Pt unavailable for final assessment due to Covid- 19 restrictions). LTG Duration 03/01/20 (02/08/20: MET GOAL. LEFS = 81% of maximal function ) 3 Impairment decreased L hip strength (2-/5 ) Short Term Goal (STG) L hip strength 3+/5. (03/31/20: Pt unavailable for final assessment due to Covid- 19 restrictions). STG Duration 01/29/20 (02/14/20: No change) Snf Goal (LTG) L hip strength 4/5 to improve functional mobility. (03/31/20: Pt unavailable for final assessment due to Covid- 19 restrictions). LTG Duration 05/14/20 2 Impairment TUG score: 46 secs Short Term Goal (STG) Improve safety with gait per TUG score of 40 or less without use of assistive device. (01/24/20: TUG = 20 sec with FWW, 50 sec's w/o AD) . (03/31/20: Pt unavailable for final assessment due to Covid- 19 restrictions). STG Duration 01/29/20 (01/24/20: TUG = 20 sec with FWW, 50 sec's w/o AD) Teacher Of The Sight Impaired Goal (LTG) Improve safety with gait per TUG score of 30 or less with out use of assistive device. (03/31/20: Pt unavailable for final assessment due to Covid- 19 restrictions). LTG Duration 05/14/20 1 Impairment antalgic gait with device Short Term Goal (STG) Patient able to ambulate with minimal limp on level surface with an assistive device walker. (03/31/20: Pt unavailable for final assessment due to Covid- 19 restrictions). STG Duration 01/29/20 (02/24/20: MET GOAL) Snf Goal (LTG) Patient able to ambulate safely with a cane on level surface outside the home. (03/31/20: Pt unavailable for final assessment due to Covid- 19 restrictions). LTG Duration 05/14/20 Assessment Summary Assessment Pt was last seen 6 weeks ago on 02/14/20. Physical therapy was interrupted due to Covid- 19 concerns; therefore the pt was not available for further therapy. Due to the pt's high risk status she is being discharged from physical therapy. Pt would benefit from further physical therapy, but understands she will need a new referral to return to therapy at a more appropriate time. Pt is agreeable to discharge from physical therapy due to concerns of Covid-19. Physical Therapy Plan Discharge Physical Therapy Discharge Comments The pt is being discharged from physical therapy at this time due to Covid-19 concerns. The pt understands she will need a new referral to return to physical therapy when it is more appropriate.
== END 2020-04-10 10:07 ==
LOC: PHYS 09:00
PROVIDERS: PCP Internal Medicine; Referring Provider Orthopaedic Surgery; Visit Provider Orthopaedic Surgery
DX: M70.62 Trochanteric bursitis, left hip (principal); M76.32 Iliotibial band syndrome, left leg
CPT/HCPCS: 97110; 97116; 97140; 97162; 97535

== ENCOUNTER 2020-10-09 08:15 | Outpatient (RCR) | payer MEDICARE, OTHER, SELFPAY ==
[2019-06-27 14:40] VITALS: BMI 30.7
--- NOTE | 2020-06-06 18:06 | PT.OIE ---
Current Diagnoses Trochanteric bursitis, right hip (06/06/20) Trochanteric bursitis, left hip (06/06/20) Iliotibial band syndrome, left leg (06/06/20) Past Medical History (Last Updated 03/12/19 @ 14:50 by Sherrie Alvarez RN) Anemia (Acute) Aortic regurgitation (Acute) Arthritis (Acute) Diabetes (Acute) Easy bruisability (Acute) Edema (Acute) HLD (hyperlipidemia) (Acute) HTN (hypertension) (Acute) Hypothyroidism (Acute) Injury of right thigh (Acute ~2017) Iron deficiency anemia (Acute) Lipoma (Acute ~06/2014) Osteoarthritis (Acute) RBBB (right bundle branch block) (Acute) Spinal stenosis (Acute) Past Surgical History (Last Updated 03/08/19 @ 13:21 by Sherrie Alvarez RN) History of arthroplasty of left knee (Acute ~2006) Hx of reduction mammoplasty (Acute) Hx of tonsillectomy (Acute) Status post bilateral cataract extraction (Acute ~2014) Visit Care Team Role Provider Type [facility] Primary Care Provider Non-Staff Specialty: Internal Medicine Address: [address] [place] [address], [id number] Email: Ander Billings MD Attending Provider Physician Referring Provider Specialty: Orthopedic Surgery Address: [address] [place] [address], [facility] Email: [email or web address] [facility] Initial Evaluation PT-OP-A Visit Information Start: 06/03/20 18:31 Freq: Status: Active Protocol: Document 06/06/20 12:47 LRN (Rec: 06/06/20 13:38 LRN [id number]) Out-Patient Physical Therapy Visit Information Visit Information Visit Type Initial Evaluation Visit Start Time 12:47 Visit Stop Time 13:38 Total Visit Minutes 51 Visit Number 1 Evaluation Information Evaluation Date 06/06/20 Precautions Precautions Diabetes II Osteopenia Radha TKA Bruises easily Hx of RBBB PT-OP-B Current Condition Start: 06/03/20 18:31 Freq: Status: Active Protocol: Document 06/06/20 12:47 LRN (Rec: 06/06/20 13:38 LRN [id number]) Current Condition History of Current Condition Onset Date 10/2019 Current Complaints Radha hips wobble when walking when not using a walker. History of Current Condition The pt is very familiar to me. She was being seen earily this year for similar diagnosis' prior to the onset of the COVID 19 Pandemic. See developmental history below. Pt is now being referred for bilateral Trochanteric Bursitis and left IT band tendonitis. Pt reports initial onset of bilateral hip pain that started as her knee rehab was ending in Oct. She states her knees are good now. Her problem is her hips. She states they want to wobble . They go from side to side and it is starting to bother her back. Future Testing and Treatments Planned None Developmental History Developmental History Medical Records indicate pt had 4 months of PT after a L knee surgery towards the end of 2018. She had reported trouble walking for over a year. She then had therapy for L trochanteric bursitis of the L hip and IT band syndrome. She had a cortisone injection in the L hip 12/03/19 with pain relief. She also had occasional R hip pain. She was in L hip rehab from 01/01/20 to 02/14/20 with her rehabilitation interrupted due to COVID 19 pandemic. Pt return today for bilateral Trochanteric Bursitis and left IT band tendonitis. Treatment Goals Patient/Caregiver Goals Pt goal is to be able to walk with less hip sway and with a cane. Prior Functional Status Baseline Function- ADL's Independent Baseline Function- Mobility Independent Baseline Function- Gait Walks w/cane & FWW Baseline Function- Recreation/Hobbies Pool ex 3x/week, last time exercised was in 2018 Baseline Function- Other Stairs: Goes backwards descending, ascending 1 step at time. Uses both hands on 1 rail. Current Functional Impairments (Reported) Functional Limitations- ADL's Walking with wobbly hips causing back pain. Functional Limitations- Mobility/Gait Walks with FWW. Functional Limitations- Other 14 stairs going down to basement and 6 stairs going up to outside. Railing on boths sides. Personal Factors Other Personal Factors That May Effect Spouse the pt feels is of Therapy/Recovery declining health Controlled HBP Diabetes II Osteopenia L TKA - 12 yrs ago, R TKA - 7/ 31/19. Hypothyroid, hx of RBBB PT-OP-C Subjective Start: 06/03/20 18:31 Freq: Status: Active Protocol: Document 06/06/20 12:47 LRN (Rec: 06/06/20 13:38 LRN [id number]) Patient Questionnaires Lower Extremity Functional Scale LEFS Score 48 LEFS Impairment 20 to 39% Impaired (Score 48- 62) OP-PT Pain Assessment Location R hip Pain Location Details Lateral side of hip bursitis Intensity 3 Scale Used Numeric (0 - 10) Description Aching Frequency Daily Pain Duration After activity and 1st in the morning Pain Alleviating Factors Medication L hip Pain Location Details Lateral side of hips bursitis Intensity 3 Scale Used Numeric (0 - 10) Description Aching Pain Duration After activity and first in the morning Pain Alleviating Factors Medication Comments Pain Comments Voltarin, rubs it on hips. PT-OP-G Mobility & Gait Start: 06/03/20 18:31 Freq: Status: Active Protocol: Document 06/06/20 12:47 LRN (Rec: 06/06/20 17:10 LRN [id number]) OP Mobility Evaluation Bed Mobility Supine to and from Sit Independent Transfers Sit to Stand Independent OP Gait Assessment Gait Gait Assistance Required: Independent Able to Maintain Weight Bearing Status Yes During Gait Assistive Devices Assistive Device Front Wheeled Walker Gait Deviations General Gait Pattern Flexed Trunk,Narrow Based Gait Factors Limiting Gait Function Factors Limiting Gait Function Decreased Strength,Pain Comments Gait Comments Pt's hips show excessive pelvic lateral shift when weight bearing. Stair Climbing Evaluation Evaluation Level of Assist On Stairs Independent Technique/Endurance Stair Climbing Technique Step to Step Comments Stair Climbing Comments Pt reports her gait pattern has not changed since her last rehab program 01/01/20-02/14. She ambulates up stairs step to step while holding onto one railing. She descends stair by holding onto one railing and going backwards. PT-OP-J Posture/Palpation/Skin Start: 06/03/20 18:31 Freq: Status: Active Protocol: Document 06/06/20 12:47 LRN (Rec: 06/06/20 13:38 LRN [id number]) Posture Evaluation Position Standing Head/C-Spine Posture Forward Head L-Spine Posture Increased Lordosis Pelvis Posture Anteriorly Tilted Weight Distribution Balanced Comments Posture Comments Flexed at hips 15 deg's Palpation Assessment Location R hip Palpation Location Superior to Greater trochanter L hip Palpation Location TFL muscle belly, Superior to Greater trochanter Palpation Findings Tenderness PT-OP-K Range of Motion Start: 06/03/20 18:31 Freq: Status: Active Protocol: Document 06/06/20 12:47 LRN (Rec: 06/06/20 13:38 LRN [id number]) Hip Goniometric Range of Motion Hip Right Passive Testing Position Supine except ext in prone Straight Leg Raise 60 Extension 5 Abduction 25 Internal Rotation 45 External Rotation 60 Left Passive Testing Position Supine except ext in prone Straight Leg Raise 80 Extension 3 Abduction 32 Internal Rotation 60 External Rotation 60 PT-OP-M Strength Start: 06/03/20 18:31 Freq: Status: Active Protocol: Document 06/06/20 12:47 LRN (Rec: 06/06/20 13:38 LRN [id number]) Hip Strength Hip Manual Muscle Testing Right Flexion (L2) 3 Fair Extension (S1) 3+ Fair+ Abduction 2- Poor- Adduction 3- Fair- External Rotation 4 Good Internal Rotation 3+ Fair+ Left Flexion (L2) 3 Fair Extension (S1) 3- Fair- Abduction 2- Poor- Adduction 3+ Fair+ External Rotation 3+ Fair+ Internal Rotation 3- Fair- PT-OP-Q Treatments Start: 06/03/20 18:31 Freq: Status: Active Protocol: Document 06/06/20 12:47 LRN (Rec: 06/06/20 17:10 LRN [id number]) Therapeutic Exercises Supine Exercises hip ABD Supine Exercise Name hip abd Side bilateral Reps/Minutes 15 x 1 Comments Extra time for training to keep legs from externally rotating. Self-Care/Home Management Treatment Education Patient Education Home Exercise Program Other Education Discussed results of evaluation and goals. Activities Self-Care/Home Management Activities I/S pt to focus on hip AB strengthening. Discussed for pt to continue with her home walking using her walker. PT-OP-T Assessment and Plan Start: 06/03/20 18:31 Freq: Status: Active Protocol: Document 06/06/20 12:47 LRN (Rec: 06/06/20 13:38 LRN [id number]) Physical Therapy Assessment Rehab Potential Rehabilitation Potential Good Evaluation Complexity Number of Personal Factors/Comorbidities 3 or More Number of Body Systems Impaired 4 or More Clinical Presentation at Evaluation Evolving Impairments Impairments Activity Tolerance,Pain, Posture,ROM,Soft Tissue Mobility,Strength Goals Four Impairment Lacks appropriate HEP Sewer Separation Designer Goal (LTG) Pt will be independent on a self care HEP. LTG Duration 08/08/20 3 Impairment LEFS score 48/80 (48-62 score is 20-39% impairment) STG Duration 07/02/20 Usp Goal (LTG) Improve pt function per LEFS of 52 or greater (48-62 score is 20-39% impairment) LTG Duration 08/08/20 2 Impairment decreased Radha hip strength Short Term Goal (STG) Increase Radha hip strength 1/2 grade with focus on hip AB ( Initial strength: Flex is 3/5 radha, Ext is 3+/5 R, 3-/5 L; AB is 2-/5 bilateral; AD is 3-/5 R, 3+/5 L; ER is 4/5 R, 3+/5 L; IR s 3+/5 R, 3-/5 L. STG Duration 07/02/20 Usp Goal (LTG) Increase Radha hip AB strength to 4/5 to improve functional mobility with gait. LTG Duration 08/08/20 1 Impairment antalgic gait with device Short Term Goal (STG) Patient able to ambulate with minimal limp on level surface with 1-2 canes or walking sticks. STG Duration 07/02/20 Sewer Separation Designer Goal (LTG) Patient able to ambulate safely with a cane on level surface outside the home. LTG Duration 08/08/20 Assessment Summary Assessment Pt presents with weakness of the bilateral hip abductors resulting in poor hip stability and excessive lateral sway of hip with gait. Her pain is palpable superior to the Greater Trochanters and on the L side at the TFL muscle belly. The pt has obvious postural deviations with probable mechanical dysfunction of the lumbar spine due to excessive lumbar lordosis and tightness of her hip flexors. The pt is very familiar to me. Her progress is usually very slow due to questionable ability to follow through with her home exercises since she indicates her spouse is of declining health. The pt would benefit from a nutritional consult with discussion of possible weight loss to help decrease the stain on her hip joints. The pt will benefit from skilled physical therapy for modalities (Iontophoresis at the hips for pain management & ultrasound), progression and education on a comprehensive home exercise program that she can manage on her own and be consistent with, as well as improving her hip strength, gait mechanics and stability with gait. Physical Therapy Plan Frequency and Duration Frequency of Treatment 2x/Week Plan of Care Start Date 06/06/20 Plan of Care End Date 08/08/20 Therapeutic Interventions Therapeutic Interventions Balance Training,Gait Training ,Home Exercise Program,Manual Therapy,Neuromuscular Re- education,Patient/Caregiver Education,Self-Care/Home Management,Soft Tissue Mobilization,Taping, Therapeutic Exercises Modalities Hot Packs,Iontophoresis, Ultrasound Other Therapeutic Interventions Iontophoresis with 4mg/mL Dexamethasone with Sodium Phosphate. Other Referrals/Consults Referrals/Consults Recommended Nutrition consult Next Visit Focus/Plan Next Note Type Treatment Note Next Visit Plan Re-issue HEP as needed, focus on ex's for radha hip AB strengthening, additionally hip ER, ext & flex, and core strengthening. Assess TUG. End with ice or Iontophoresis bilaterally.
--- NOTE | 2020-06-06 18:08 | PT.OPPOC ---
Physical, Occupational & Speech Therapy At [facility] Current Diagnoses Trochanteric bursitis, right hip (06/06/20) Trochanteric bursitis, left hip (06/06/20) Iliotibial band syndrome, left leg (06/06/20) Visit Care Team Role Provider Type Juli Harrell Primary Care Provider Non-Staff Specialty: Internal Medicine Address: [address] [place] [address], [id number] Email: Ander Billings MD Attending Provider Physician Referring Provider Specialty: Orthopedic Surgery Address: [address] [place] [address], [id number] Email: [email or web address] Plan Of Care PT-OP-T Assessment and Plan Start: 06/03/20 18:31 Freq: Status: Active Protocol: Document 06/06/20 12:47 LRN (Rec: 06/06/20 13:38 LRN [id number]) Physical Therapy Assessment Rehab Potential Rehabilitation Potential Good Evaluation Complexity Number of Personal Factors/Comorbidities 3 or More Number of Body Systems Impaired 4 or More Clinical Presentation at Evaluation Evolving Impairments Impairments Activity Tolerance,Pain, Posture,ROM,Soft Tissue Mobility,Strength Goals Four Impairment Lacks appropriate HEP Compressed Gas Equipment Mechanic Goal (LTG) Pt will be independent on a self care HEP. LTG Duration 08/08/20 3 Impairment LEFS score 48/80 (48-62 score is 20-39% impairment) STG Duration 07/02/20 Compressed Gas Equipment Mechanic Goal (LTG) Improve pt function per LEFS of 52 or greater (48-62 score is 20-39% impairment) LTG Duration 08/08/20 2 Impairment decreased Radha hip strength Short Term Goal (STG) Increase Radha hip strength 1/2 grade with focus on hip AB ( Initial strength: Flex is 3/5 radha, Ext is 3+/5 R, 3-/5 L; AB is 2-/5 bilateral; AD is 3-/5 R, 3+/5 L; ER is 4/5 R, 3+/5 L; IR s 3+/5 R, 3-/5 L. STG Duration 07/02/20 Care Home Goal (LTG) Increase Radha hip AB strength to 4/5 to improve functional mobility with gait. LTG Duration 08/08/20 1 Impairment antalgic gait with device Short Term Goal (STG) Patient able to ambulate with minimal limp on level surface with 1-2 canes or walking sticks. STG Duration 07/02/20 Care Home Goal (LTG) Patient able to ambulate safely with a cane on level surface outside the home. LTG Duration 08/08/20 Assessment Summary Assessment Pt presents with weakness of the bilateral hip abductors resulting in poor hip stability and excessive lateral sway of hip with gait. Her pain is palpable superior to the Greater Trochanters and on the L side at the TFL muscle belly. The pt has obvious postural deviations with probable mechanical dysfunction of the lumbar spine due to excessive lumbar lordosis and tightness of her hip flexors. The pt is very familiar to me. Her progress is usually very slow due to questionable ability to follow through with her home exercises since she indicates her spouse is of declining health. The pt would benefit from a nutritional consult with discussion of possible weight loss to help decrease the stain on her hip joints. The pt will benefit from skilled physical therapy for modalities (Iontophoresis at the hips for pain management & ultrasound), progression and education on a comprehensive home exercise program that she can manage on her own and be consistent with, as well as improving her hip strength, gait mechanics and stability with gait. Physical Therapy Plan Frequency and Duration Frequency of Treatment 2x/Week Plan of Care Start Date 06/06/20 Plan of Care End Date 08/08/20 Therapeutic Interventions Therapeutic Interventions Balance Training,Gait Training ,Home Exercise Program,Manual Therapy,Neuromuscular Re- education,Patient/Caregiver Education,Self-Care/Home Management,Soft Tissue Mobilization,Taping, Therapeutic Exercises Modalities Hot Packs,Iontophoresis, Ultrasound Other Therapeutic Interventions Iontophoresis with 4mg/mL Dexamethasone with Sodium Phosphate. Other Referrals/Consults Referrals/Consults Recommended Nutrition consult Next Visit Focus/Plan Next Note Type Treatment Note Next Visit Plan Re-issue HEP as needed, focus on ex's for radha hip AB strengthening, additionally hip ER, ext & flex, and core strengthening. Assess TUG. End with ice or Iontophoresis bilaterally. Plan of Care Dates Plan of Care Start Date 06/06/20 Plan of Care End Date 08/08/20 Electronically Signed by: Constanza Harper, PT 06/06/20 1808 Please Sign and Return: I have reviewed this Plan of Care and certify that the skilled therapy services above are required to meet the patient?s needs. Physician Signature Date Printed Name and Credentials Clinical Instructor Signature Printed Name and Credentials
--- NOTE | 2020-06-09 13:45 | PT.OTN ---
Current Diagnoses Trochanteric bursitis, right hip (06/09/20) Trochanteric bursitis, left hip (06/09/20) Iliotibial band syndrome, left leg (06/09/20) Physical Therapy Treatment Note PT-OP-A Visit Information Start: 06/03/20 18:31 Freq: Status: Active Protocol: Document 06/09/20 13:05 SP (Rec: 06/09/20 14:11 SP [id number]) Out-Patient Physical Therapy Visit Information Visit Information Visit Type Treatment Note Visit Start Time 13:05 Visit Stop Time 13:45 Total Visit Minutes 40 Visit Number 2 Number of REGISTERED RESPIRATORY THERAPIST Visits 1 Precautions Precautions Diabetes II Osteopenia Nathan TKA Bruises easily Hx of RBBB PT-OP-B Current Condition Start: 06/03/20 18:31 Freq: Status: Active Protocol: Document 06/06/20 12:47 LRN (Rec: 06/06/20 13:38 LRN [id number]) Current Condition History of Current Condition Onset Date 10/2019 Current Complaints Nathan hips wobble when walking when not using a walker. History of Current Condition The pt is very familiar to me. She was being seen earily this year for similar diagnosis' prior to the onset of the COVID 19 Pandemic. See developmental history below. Pt is now being referred for bilateral Trochanteric Bursitis and left IT band tendonitis. Pt reports initial onset of bilateral hip pain that started as her knee rehab was ending in Oct. She states her knees are good now. Her problem is her hips. She states they want to wobble . They go from side to side and it is starting to bother her back. Future Testing and Treatments Planned None Developmental History Developmental History Medical Records indicate pt had 4 months of PT after a L knee surgery towards the end of 2018. She had reported trouble walking for over a year. She then had therapy for L trochanteric bursitis of the L hip and IT band syndrome. She had a cortisone injection in the L hip 12/03/19 with pain relief. She also had occasional R hip pain. She was in L hip rehab from 01/01/20 to 02/14/20 with her rehabilitation interrupted due to COVID 19 pandemic. Pt return today for bilateral Trochanteric Bursitis and left IT band tendonitis. Treatment Goals Patient/Caregiver Goals Pt goal is to be able to walk with less hip sway and with a cane. Prior Functional Status Baseline Function- ADL's Independent Baseline Function- Mobility Independent Baseline Function- Gait Walks w/cane & FWW Baseline Function- Recreation/Hobbies Pool ex 3x/week, last time exercised was in 2018 Baseline Function- Other Stairs: Goes backwards descending, ascending 1 step at time. Uses both hands on 1 rail. Current Functional Impairments (Reported) Functional Limitations- ADL's Walking with wobbly hips causing back pain. Functional Limitations- Mobility/Gait Walks with FWW. Functional Limitations- Other 14 stairs going down to basement and 6 stairs going up to outside. Railing on boths sides. Personal Factors Other Personal Factors That May Effect Spouse the pt feels is of Therapy/Recovery declining health Controlled HBP Diabetes II Osteopenia L TKA - 12 yrs ago, R TKA - . Hypothyroid, hx of RBBB PT-OP-C Subjective Start: 06/03/20 18:31 Freq: Status: Active Protocol: Document 06/09/20 13:05 SP (Rec: 06/09/20 14:11 SP [id number]) OP-PT Subjective Patient Comments Patient Comments Pt stated my knees are doing good but still trying to get my hips stronger R more than L . PT-OP-E Functional Tests Start: 06/03/20 18:31 Freq: Status: Active Protocol: Document 06/09/20 14:12 SP (Rec: 06/09/20 14:15 SP [id number]) Functional Tests Timed Up and Go (TUG) Score 17.60 sec Comments at risk for falls PT-OP-G Mobility & Gait Start: 06/03/20 18:31 Freq: Status: Active Protocol: Document 06/06/20 12:47 LRN (Rec: 06/06/20 17:10 LRN [id number]) OP Mobility Evaluation Bed Mobility Supine to and from Sit Independent Transfers Sit to Stand Independent OP Gait Assessment Gait Gait Assistance Required: Independent Able to Maintain Weight Bearing Status Yes During Gait Assistive Devices Assistive Device Front Wheeled Walker Gait Deviations General Gait Pattern Flexed Trunk,Narrow Based Gait Factors Limiting Gait Function Factors Limiting Gait Function Decreased Strength,Pain Comments Gait Comments Pt's hips show excessive pelvic lateral shift when weight bearing. Stair Climbing Evaluation Evaluation Level of Assist On Stairs Independent Technique/Endurance Stair Climbing Technique Step to Step Comments Stair Climbing Comments Pt reports her gait pattern has not changed since her last rehab program 01/01/20-02/14. She ambulates up stairs step to step while holding onto one railing. She descends stair by holding onto one railing and going backwards. PT-OP-J Posture/Palpation/Skin Start: 06/03/20 18:31 Freq: Status: Active Protocol: Document 06/06/20 12:47 LRN (Rec: 06/06/20 13:38 LRN [id number]) Posture Evaluation Position Standing Head/C-Spine Posture Forward Head L-Spine Posture Increased Lordosis Pelvis Posture Anteriorly Tilted Weight Distribution Balanced Comments Posture Comments Flexed at hips 15 deg's Palpation Assessment Location R hip Palpation Location Superior to Greater trochanter L hip Palpation Location TFL muscle belly, Superior to Greater trochanter Palpation Findings Tenderness PT-OP-K Range of Motion Start: 06/03/20 18:31 Freq: Status: Active Protocol: Document 06/06/20 12:47 LRN (Rec: 06/06/20 13:38 LRN [id number]) Hip Goniometric Range of Motion Hip Right Passive Testing Position Supine except ext in prone Straight Leg Raise 60 Extension 5 Abduction 25 Internal Rotation 45 External Rotation 60 Left Passive Testing Position Supine except ext in prone Straight Leg Raise 80 Extension 3 Abduction 32 Internal Rotation 60 External Rotation 60 PT-OP-M Strength Start: 06/03/20 18:31 Freq: Status: Active Protocol: Document 06/06/20 12:47 LRN (Rec: 06/06/20 13:38 LRN [id number]) Hip Strength Hip Manual Muscle Testing Right Flexion (L2) 3 Fair Extension (S1) 3+ Fair+ Abduction 2- Poor- Adduction 3- Fair- External Rotation 4 Good Internal Rotation 3+ Fair+ Left Flexion (L2) 3 Fair Extension (S1) 3- Fair- Abduction 2- Poor- Adduction 3+ Fair+ External Rotation 3+ Fair+ Internal Rotation 3- Fair- PT-OP-Q Treatments Start: 06/03/20 18:31 Freq: Status: Active Protocol: Document 06/09/20 13:05 SP (Rec: 06/09/20 14:11 SP [id number]) Cardio Equipment Recumbent Bicycle Duration (Minutes) 6 Resistance 4 Seat Position 6 Therapeutic Exercises Supine Exercises hip ABD Supine Exercise Name hip abd Side bilateral Reps/Minutes 15 x 1 Comments Extra time for training to keep legs from externally rotating. Sitting Exercises hip abd band Resistance L2 Reps/Minutes 3x10 Comments cued slow controlled eccentric return to start pos PT-OP-T Assessment and Plan Start: 06/03/20 18:31 Freq: Status: Active Protocol: Document 06/09/20 13:05 SP (Rec: 06/09/20 14:11 SP [id number]) Physical Therapy Assessment Goals Four Impairment Lacks appropriate HEP Assisted Goal (LTG) Pt will be independent on a self care HEP. LTG Duration 08/08/20 3 Impairment LEFS score 48/80 (48-62 score is 20-39% impairment) STG Duration 07/02/20 Assisted Goal (LTG) Improve pt function per LEFS of 52 or greater (48-62 score is 20-39% impairment) LTG Duration 08/08/20 2 Impairment decreased Nathan hip strength Short Term Goal (STG) Increase Nathan hip strength 1/2 grade with focus on hip AB ( Initial strength: Flex is 3/5 nathan, Ext is 3+/5 R, 3-/5 L; AB is 2-/5 bilateral; AD is 3-/5 R, 3+/5 L; ER is 4/5 R, 3+/5 L; IR s 3+/5 R, 3-/5 L. STG Duration 07/02/20 Assisted Goal (LTG) Increase Nathan hip AB strength to 4/5 to improve functional mobility with gait. LTG Duration 08/08/20 1 Impairment antalgic gait with device Short Term Goal (STG) Patient able to ambulate with minimal limp on level surface with 1-2 canes or walking sticks. STG Duration 07/02/20 Assisted Goal (LTG) Patient able to ambulate safely with a cane on level surface outside the home. LTG Duration 08/08/20 Assessment Summary Assessment TUG 17.60 sec using FWW for support. Pt tolerated tx well. Demonstrates hip flex and calf PF compenstations during isolated hip abd supine and sitting cuing and demonstration to follow for proper form. PRovided detailed hand outs for recall at home . Physical Therapy Plan Frequency and Duration Frequency of Treatment 2x/Week Plan of Care Start Date 06/06/20 Plan of Care End Date 08/08/20 Therapeutic Interventions Therapeutic Interventions Balance Training,Gait Training ,Home Exercise Program,Manual Therapy,Neuromuscular Re- education,Patient/Caregiver Education,Self-Care/Home Management,Soft Tissue Mobilization,Taping, Therapeutic Exercises Modalities Hot Packs,Iontophoresis, Ultrasound Other Therapeutic Interventions Iontophoresis with 4mg/mL Dexamethasone with Sodium Phosphate. Next Visit Focus/Plan Next Note Type Treatment Note Next Visit Plan TUG 17.60sec using FWW for support and cuing for proper particiapation. Assess response to last tx. Reviewed supine abd, added hip ER supine, abd in sitting against resistance. Continue per PT focus on ex's for nathan hip AB strengthening, additionally hip ER, ext & flex, and core strengthening. End with ice or Iontophoresis bilaterally.
--- NOTE | 2020-06-20 17:39 | PT.OTN ---
Current Diagnoses Trochanteric bursitis, right hip (07/10/20) Trochanteric bursitis, left hip (07/10/20) Iliotibial band syndrome, left leg (07/10/20) Physical Therapy Treatment Note PT-OP-A Visit Information Start: 06/03/20 18:31 Freq: Status: Active Protocol: Document 07/10/20 17:38 LRN (Rec: 06/20/20 14:18 LRN [id number]) Out-Patient Physical Therapy Visit Information Visit Information Visit Type Treatment Note Visit Start Time 13:32 Visit Stop Time 14:16 Total Visit Minutes 44 Visit Number 3 Evaluation Information Evaluation Date 06/06/20 Precautions Precautions Diabetes II Osteopenia Nathan TKA Bruises easily Hx of RBBB PT-OP-B Current Condition Start: 06/03/20 18:31 Freq: Status: Active Protocol: Document 06/06/20 12:47 LRN (Rec: 06/06/20 13:38 LRN [id number]) Current Condition History of Current Condition Onset Date 10/2019 Current Complaints Nathan hips wobble when walking when not using a walker. History of Current Condition The pt is very familiar to me. She was being seen earily this year for similar diagnosis' prior to the onset of the COVID 19 Pandemic. See developmental history below. Pt is now being referred for bilateral Trochanteric Bursitis and left IT band tendonitis. Pt reports initial onset of bilateral hip pain that started as her knee rehab was ending in Oct. She states her knees are good now. Her problem is her hips. She states they want to wobble . They go from side to side and it is starting to bother her back. Future Testing and Treatments Planned None Developmental History Developmental History Medical Records indicate pt had 4 months of PT after a L knee surgery towards the end of 2018. She had reported trouble walking for over a year. She then had therapy for L trochanteric bursitis of the L hip and IT band syndrome. She had a cortisone injection in the L hip 12/03/19 with pain relief. She also had occasional R hip pain. She was in L hip rehab from 01/01/20 to 02/14/20 with her rehabilitation interrupted due to COVID 19 pandemic. Pt return today for bilateral Trochanteric Bursitis and left IT band tendonitis. Treatment Goals Patient/Caregiver Goals Pt goal is to be able to walk with less hip sway and with a cane. Prior Functional Status Baseline Function- ADL's Independent Baseline Function- Mobility Independent Baseline Function- Gait Walks w/cane & FWW Baseline Function- Recreation/Hobbies Pool ex 3x/week, last time exercised was in 2018 Baseline Function- Other Stairs: Goes backwards descending, ascending 1 step at time. Uses both hands on 1 rail. Current Functional Impairments (Reported) Functional Limitations- ADL's Walking with wobbly hips causing back pain. Functional Limitations- Mobility/Gait Walks with FWW. Functional Limitations- Other 14 stairs going down to basement and 6 stairs going up to outside. Railing on boths sides. Personal Factors Other Personal Factors That May Effect Spouse the pt feels is of Therapy/Recovery declining health Controlled HBP Diabetes II Osteopenia L TKA - 12 yrs ago, R TKA - . Hypothyroid, hx of RBBB PT-OP-C Subjective Start: 06/03/20 18:31 Freq: Status: Active Protocol: Document 07/10/20 17:38 LRN (Rec: 06/20/20 14:18 LRN [id number]) OP-PT Subjective Patient Comments Patient Comments Walking daily 1 hour at [employer] Can feel the hips, hasn't taken anything for it today. PT-OP-E Functional Tests Start: 06/03/20 18:31 Freq: Status: Active Protocol: Document 06/09/20 14:12 SP (Rec: 06/09/20 14:15 SP [id number]) Functional Tests Timed Up and Go (TUG) Score 17.60 sec Comments at risk for falls PT-OP-G Mobility & Gait Start: 06/03/20 18:31 Freq: Status: Active Protocol: Document 06/06/20 12:47 LRN (Rec: 06/06/20 17:10 LRN [id number]) OP Mobility Evaluation Bed Mobility Supine to and from Sit Independent Transfers Sit to Stand Independent OP Gait Assessment Gait Gait Assistance Required: Independent Able to Maintain Weight Bearing Status Yes During Gait Assistive Devices Assistive Device Front Wheeled Walker Gait Deviations General Gait Pattern Flexed Trunk,Narrow Based Gait Factors Limiting Gait Function Factors Limiting Gait Function Decreased Strength,Pain Comments Gait Comments Pt's hips show excessive pelvic lateral shift when weight bearing. Stair Climbing Evaluation Evaluation Level of Assist On Stairs Independent Technique/Endurance Stair Climbing Technique Step to Step Comments Stair Climbing Comments Pt reports her gait pattern has not changed since her last rehab program 01/01/20-02/14. She ambulates up stairs step to step while holding onto one railing. She descends stair by holding onto one railing and going backwards. PT-OP-J Posture/Palpation/Skin Start: 06/03/20 18:31 Freq: Status: Active Protocol: Document 06/06/20 12:47 LRN (Rec: 06/06/20 13:38 LRN [id number]) Posture Evaluation Position Standing Head/C-Spine Posture Forward Head L-Spine Posture Increased Lordosis Pelvis Posture Anteriorly Tilted Weight Distribution Balanced Comments Posture Comments Flexed at hips 15 deg's Palpation Assessment Location R hip Palpation Location Superior to Greater trochanter L hip Palpation Location TFL muscle belly, Superior to Greater trochanter Palpation Findings Tenderness PT-OP-K Range of Motion Start: 06/03/20 18:31 Freq: Status: Active Protocol: Document 06/06/20 12:47 LRN (Rec: 06/06/20 13:38 LRN [id number]) Hip Goniometric Range of Motion Hip Right Passive Testing Position Supine except ext in prone Straight Leg Raise 60 Extension 5 Abduction 25 Internal Rotation 45 External Rotation 60 Left Passive Testing Position Supine except ext in prone Straight Leg Raise 80 Extension 3 Abduction 32 Internal Rotation 60 External Rotation 60 PT-OP-M Strength Start: 06/03/20 18:31 Freq: Status: Active Protocol: Document 06/26/20 12:49 LRN (Rec: 06/26/20 13:34 LRN [id number]) Hip Strength Hip Manual Muscle Testing Right Flexion (L2) 5 Normal Extension (S1) 3+ Fair+ Abduction 2- Poor- Adduction 3+ Fair+ External Rotation 3+ Fair+ Internal Rotation 2 Poor Left Flexion (L2) 5 Normal Extension (S1) 3- Fair- Abduction 2- Poor- Adduction 3+ Fair+ External Rotation 4 Good Internal Rotation 2- Poor- PT-OP-Q Treatments Start: 06/03/20 18:31 Freq: Status: Active Protocol: Document 07/10/20 17:38 LRN (Rec: 06/20/20 14:18 LRN [id number]) Cardio Equipment Recumbent Stepper (Sci-Fit) Duration (Minutes) 6 Resistance 1 Seat Position 12 Therapeutic Exercises Supine Exercises hip ABD Supine Exercise Name hip abd (R side holding 5 sec at end-range) Side bilateral Reps/Minutes 15 x 2 Comments Training to keep R leg from externally rotating. Sidelying Exercises Hip Ext Sidelying Exercise Name Bottom leg hip ext with assist to hold top leg in ER Side bilateral Reps/Minutes 4' Comments Pt required much phy assist for active and non-active leg. Hip AB/AD Sidelying Exercise Name ECC Hip AB Side bilateral Reps/Minutes 10x 2 Comments Pt needed Max A to lift legs into AB past neutral. R weaker 2 Sidelying Exercise Name ABD Sitting Exercises hip abd band Resistance L2 Reps/Minutes 3x10 Comments cued slow controlled eccentric return to start pos PT-OP-T Assessment and Plan Start: 06/03/20 18:31 Freq: Status: Active Protocol: Document 07/10/20 17:38 LRN (Rec: 06/20/20 14:18 LRN [id number]) Physical Therapy Assessment Goals Four Impairment Lacks appropriate HEP Pattern Perforating Machine Operator Goal (LTG) Pt will be independent on a self care HEP. LTG Duration 08/08/20 3 Impairment LEFS score 48/80 (48-62 score is 20-39% impairment) STG Duration 07/02/20 Pattern Perforating Machine Operator Goal (LTG) Improve pt function per LEFS of 52 or greater (48-62 score is 20-39% impairment) LTG Duration 08/08/20 2 Impairment decreased Nathan hip strength Short Term Goal (STG) Increase Nathan hip strength 1/2 grade with focus on hip AB ( Initial strength: Flex is 3/5 nathan, Ext is 3+/5 R, 3-/5 L; AB is 2-/5 bilateral; AD is 3-/5 R, 3+/5 L; ER is 4/5 R, 3+/5 L; IR s 3+/5 R, 3-/5 L. STG Duration 07/02/20 Group Home Goal (LTG) Increase Nathan hip AB strength to 4/5 to improve functional mobility with gait. LTG Duration 08/08/20 1 Impairment antalgic gait with device Short Term Goal (STG) Patient able to ambulate with minimal limp on level surface with 1-2 canes or walking sticks. STG Duration 07/02/20 Group Home Goal (LTG) Patient able to ambulate safely with a cane on level surface outside the home. LTG Duration 08/08/20 Assessment Summary Assessment Good tolerance to therapy last session. Very weak hip AB's and extensors causing excessive sway of hips with gait. Physical Therapy Plan Frequency and Duration Frequency of Treatment 2x/Week Plan of Care Start Date 06/06/20 Plan of Care End Date 08/08/20 Next Visit Focus/Plan Next Note Type Treatment Note Next Visit Plan Review ex's from session on of added hip ER supine, abd in sitting against resistance. Continue per PT focus on ex's for nathan hip AB strengthening, additionally hip ER, ext & flex, and core strengthening. End with ice or Iontophoresis bilaterally as needed.
--- NOTE | 2020-06-24 17:12 | PT.OTN ---
Current Diagnoses Trochanteric bursitis, right hip (06/24/20) Trochanteric bursitis, left hip (06/24/20) Iliotibial band syndrome, left leg (06/24/20) Physical Therapy Treatment Note PT-OP-A Visit Information Start: 06/03/20 18:31 Freq: Status: Active Protocol: Document 06/24/20 12:51 LRN (Rec: 06/24/20 13:33 LRN [id number]) Out-Patient Physical Therapy Visit Information Visit Information Visit Type Treatment Note Visit Start Time 11:51 Visit Stop Time 13:30 Total Visit Minutes 39 Visit Number 4 Evaluation Information Evaluation Date 06/06/20 Precautions Precautions Diabetes II Osteopenia Nathan TKA Bruises easily Hx of RBBB PT-OP-B Current Condition Start: 06/03/20 18:31 Freq: Status: Active Protocol: Document 06/06/20 12:47 LRN (Rec: 06/06/20 13:38 LRN [id number]) Current Condition History of Current Condition Onset Date 10/2019 Current Complaints Nathan hips wobble when walking when not using a walker. History of Current Condition The pt is very familiar to me. She was being seen earily this year for similar diagnosis' prior to the onset of the COVID 19 Pandemic. See developmental history below. Pt is now being referred for bilateral Trochanteric Bursitis and left IT band tendonitis. Pt reports initial onset of bilateral hip pain that started as her knee rehab was ending in Oct. She states her knees are good now. Her problem is her hips. She states they want to wobble . They go from side to side and it is starting to bother her back. Future Testing and Treatments Planned None Developmental History Developmental History Medical Records indicate pt had 4 months of PT after a L knee surgery towards the end of 2018. She had reported trouble walking for over a year. She then had therapy for L trochanteric bursitis of the L hip and IT band syndrome. She had a cortisone injection in the L hip 12/03/19 with pain relief. She also had occasional R hip pain. She was in L hip rehab from 01/01/20 to 02/14/20 with her rehabilitation interrupted due to COVID 19 pandemic. Pt return today for bilateral Trochanteric Bursitis and left IT band tendonitis. Treatment Goals Patient/Caregiver Goals Pt goal is to be able to walk with less hip sway and with a cane. Prior Functional Status Baseline Function- ADL's Independent Baseline Function- Mobility Independent Baseline Function- Gait Walks w/cane & FWW Baseline Function- Recreation/Hobbies Pool ex 3x/week, last time exercised was in 2018 Baseline Function- Other Stairs: Goes backwards descending, ascending 1 step at time. Uses both hands on 1 rail. Current Functional Impairments (Reported) Functional Limitations- ADL's Walking with wobbly hips causing back pain. Functional Limitations- Mobility/Gait Walks with FWW. Functional Limitations- Other 14 stairs going down to basement and 6 stairs going up to outside. Railing on boths sides. Personal Factors Other Personal Factors That May Effect Spouse the pt feels is of Therapy/Recovery declining health Controlled HBP Diabetes II Osteopenia L TKA - 12 yrs ago, R TKA - . Hypothyroid, hx of RBBB PT-OP-C Subjective Start: 06/03/20 18:31 Freq: Status: Active Protocol: Document 06/24/20 12:51 LRN (Rec: 06/24/20 13:33 LRN [id number]) OP-PT Subjective Patient Comments Patient Comments States she doesn't get as tired walking. PT-OP-E Functional Tests Start: 06/03/20 18:31 Freq: Status: Active Protocol: Document 06/09/20 14:12 SP (Rec: 06/09/20 14:15 SP [id number]) Functional Tests Timed Up and Go (TUG) Score 17.60 sec Comments at risk for falls PT-OP-G Mobility & Gait Start: 06/03/20 18:31 Freq: Status: Active Protocol: Document 06/06/20 12:47 LRN (Rec: 06/06/20 17:10 LRN [id number]) OP Mobility Evaluation Bed Mobility Supine to and from Sit Independent Transfers Sit to Stand Independent OP Gait Assessment Gait Gait Assistance Required: Independent Able to Maintain Weight Bearing Status Yes During Gait Assistive Devices Assistive Device Front Wheeled Walker Gait Deviations General Gait Pattern Flexed Trunk,Narrow Based Gait Factors Limiting Gait Function Factors Limiting Gait Function Decreased Strength,Pain Comments Gait Comments Pt's hips show excessive pelvic lateral shift when weight bearing. Stair Climbing Evaluation Evaluation Level of Assist On Stairs Independent Technique/Endurance Stair Climbing Technique Step to Step Comments Stair Climbing Comments Pt reports her gait pattern has not changed since her last rehab program 01/01/20-02/14. She ambulates up stairs step to step while holding onto one railing. She descends stair by holding onto one railing and going backwards. PT-OP-J Posture/Palpation/Skin Start: 06/03/20 18:31 Freq: Status: Active Protocol: Document 06/06/20 12:47 LRN (Rec: 06/06/20 13:38 LRN [id number]) Posture Evaluation Position Standing Head/C-Spine Posture Forward Head L-Spine Posture Increased Lordosis Pelvis Posture Anteriorly Tilted Weight Distribution Balanced Comments Posture Comments Flexed at hips 15 deg's Palpation Assessment Location R hip Palpation Location Superior to Greater trochanter L hip Palpation Location TFL muscle belly, Superior to Greater trochanter Palpation Findings Tenderness PT-OP-K Range of Motion Start: 06/03/20 18:31 Freq: Status: Active Protocol: Document 06/06/20 12:47 LRN (Rec: 06/06/20 13:38 LRN [id number]) Hip Goniometric Range of Motion Hip Right Passive Testing Position Supine except ext in prone Straight Leg Raise 60 Extension 5 Abduction 25 Internal Rotation 45 External Rotation 60 Left Passive Testing Position Supine except ext in prone Straight Leg Raise 80 Extension 3 Abduction 32 Internal Rotation 60 External Rotation 60 PT-OP-M Strength Start: 06/03/20 18:31 Freq: Status: Active Protocol: Document 06/24/20 12:51 LRN (Rec: 06/24/20 13:33 LRN [id number]) Hip Strength Hip Manual Muscle Testing Right Flexion (L2) 5 Normal Extension (S1) 3+ Fair+ Abduction 2- Poor- External Rotation 3+ Fair+ Internal Rotation 2 Poor Left Flexion (L2) 5 Normal Extension (S1) 3- Fair- Abduction 2- Poor- External Rotation 4 Good Internal Rotation 2- Poor- PT-OP-Q Treatments Start: 06/03/20 18:31 Freq: Status: Active Protocol: Document 06/24/20 12:51 LRN (Rec: 06/24/20 13:33 LRN [id number]) Therapeutic Exercises Supine Exercises 1 legged hip ABD Supine Exercise Name 1 legged hip AB at at time Side bilateral Resistance Lev 1 TB Reps/Minutes 10x 3 hip ABD Supine Exercise Name hip abd (R side holding 5 sec at end-range) Side bilateral Resistance Lev 1, 1 band resistance Reps/Minutes 15x w/TB, 15 x 2 w/o TB Comments Training to keep R leg from externally rotating. Sidelying Exercises Hip Ext Sidelying Exercise Name Bottom leg hip ext with assist to hold top leg in ER Side bilateral Reps/Minutes 6' Comments Pt required much phy assist for active and non-active leg. Hip AB/AD Sidelying Exercise Name ECC Hip AB Side bilateral Reps/Minutes 6' Comments Pt needed Max A to lift legs into AB past neutral. R weaker 2 Sidelying Exercise Name Hip ABD Comments MMT Sitting Exercises hip abd band Resistance L2 Reps/Minutes 3x10 Comments cued slow controlled eccentric return to start pos Hip ER/IR Sitting Exercise Name Hip ER/IR Comments MMT PT-OP-T Assessment and Plan Start: 06/03/20 18:31 Freq: Status: Active Protocol: Document 06/24/20 12:51 LRN (Rec: 06/24/20 13:33 LRN [id number]) Physical Therapy Assessment Goals Four Impairment Lacks appropriate HEP Halfway Goal (LTG) Pt will be independent on a self care HEP. LTG Duration 08/08/20 3 Impairment LEFS score 48/80 (48-62 score is 20-39% impairment) STG Duration 07/02/20 Sewer Digger Goal (LTG) Improve pt function per LEFS of 52 or greater (48-62 score is 20-39% impairment) LTG Duration 08/08/20 2 Impairment decreased Nathan hip strength Short Term Goal (STG) Increase Nathan hip strength 1/2 grade with focus on hip AB ( Initial strength: Flex is 3/5 nathan, Ext is 3+/5 R, 3-/5 L; AB is 2-/5 bilateral; AD is 3-/5 R, 3+/5 L; ER is 4/5 R, 3+/5 L; IR s 3+/5 R, 3-/5 L). (06/24/20: Flex 5/5 nathan; Ext 3 +/5 R, 3-/5 L; AB is 2-/5 bilateral; ER is 3+/5 R, 4/5 L ; IR is 2/5 R, 2-/5 L). STG Duration 07/02/20 Sewer Digger Goal (LTG) Increase Nathan hip AB strength to 4/5 to improve functional mobility with gait. LTG Duration 08/08/20 1 Impairment antalgic gait with device Short Term Goal (STG) Patient able to ambulate with minimal limp on level surface with 1-2 canes or walking sticks. STG Duration 07/02/20 Sewer Digger Goal (LTG) Patient able to ambulate safely with a cane on level surface outside the home. LTG Duration 08/08/20 Progress Towards Goals Progress Comments Pt has improved her nathan hip flex strength, but shows decreased strength with R hip ER and nathan IR. Ext & AB is the same. AD was not tested. Assessment Summary Assessment Pt was able to perform supine Hip AB properly with 1 band of Lev1 TB, she appears to be familiar with sitting hip AB ex; therefore probably compliant to sitting ex. Pt able to walk with walker without sway of hips at end of therapy. Without walker sway of hips is noticeable. Physical Therapy Plan Frequency and Duration Frequency of Treatment 2x/Week Plan of Care Start Date 06/06/20 Plan of Care End Date 08/08/20 Next Visit Focus/Plan Next Note Type Treatment Note Next Visit Plan Check hip AD strength. Continue per focus on ex's for nathan hip AB strengthening, additionally hip ER & ext, and core strengthening. End with ice or Iontophoresis bilaterally as needed.
--- NOTE | 2020-06-26 18:09 | PT.OTN ---
Current Diagnoses Trochanteric bursitis, right hip (06/26/20) Trochanteric bursitis, left hip (06/26/20) Iliotibial band syndrome, left leg (06/26/20) Physical Therapy Treatment Note PT-OP-A Visit Information Start: 06/03/20 18:31 Freq: Status: Active Protocol: Document 06/26/20 12:49 LRN (Rec: 06/26/20 13:34 LRN [id number]) Out-Patient Physical Therapy Visit Information Visit Information Visit Type Treatment Note Visit Start Time 12:49 Visit Stop Time 13:29 Total Visit Minutes 40 Visit Number 5 Evaluation Information Evaluation Date 06/06/20 Precautions Precautions Diabetes II Osteopenia Nathan TKA Bruises easily Hx of RBBB PT-OP-B Current Condition Start: 06/03/20 18:31 Freq: Status: Active Protocol: Document 06/06/20 12:47 LRN (Rec: 06/06/20 13:38 LRN [id number]) Current Condition History of Current Condition Onset Date 10/2019 Current Complaints Nathan hips wobble when walking when not using a walker. History of Current Condition The pt is very familiar to me. She was being seen earily this year for similar diagnosis' prior to the onset of the COVID 19 Pandemic. See developmental history below. Pt is now being referred for bilateral Trochanteric Bursitis and left IT band tendonitis. Pt reports initial onset of bilateral hip pain that started as her knee rehab was ending in Oct. She states her knees are good now. Her problem is her hips. She states they want to wobble . They go from side to side and it is starting to bother her back. Future Testing and Treatments Planned None Developmental History Developmental History Medical Records indicate pt had 4 months of PT after a L knee surgery towards the end of 2018. She had reported trouble walking for over a year. She then had therapy for L trochanteric bursitis of the L hip and IT band syndrome. She had a cortisone injection in the L hip 12/03/19 with pain relief. She also had occasional R hip pain. She was in L hip rehab from 01/01/20 to 02/14/20 with her rehabilitation interrupted due to COVID 19 pandemic. Pt return today for bilateral Trochanteric Bursitis and left IT band tendonitis. Treatment Goals Patient/Caregiver Goals Pt goal is to be able to walk with less hip sway and with a cane. Prior Functional Status Baseline Function- ADL's Independent Baseline Function- Mobility Independent Baseline Function- Gait Walks w/cane & FWW Baseline Function- Recreation/Hobbies Pool ex 3x/week, last time exercised was in 2018 Baseline Function- Other Stairs: Goes backwards descending, ascending 1 step at time. Uses both hands on 1 rail. Current Functional Impairments (Reported) Functional Limitations- ADL's Walking with wobbly hips causing back pain. Functional Limitations- Mobility/Gait Walks with FWW. Functional Limitations- Other 14 stairs going down to basement and 6 stairs going up to outside. Railing on boths sides. Personal Factors Other Personal Factors That May Effect Spouse the pt feels is of Therapy/Recovery declining health Controlled HBP Diabetes II Osteopenia L TKA - 12 yrs ago, R TKA - . Hypothyroid, hx of RBBB PT-OP-C Subjective Start: 06/03/20 18:31 Freq: Status: Active Protocol: Document 06/26/20 12:49 LRN (Rec: 06/26/20 13:34 LRN [id number]) OP-PT Subjective Patient Comments Patient Comments States she is walking daily PT-OP-E Functional Tests Start: 06/03/20 18:31 Freq: Status: Active Protocol: Document 06/09/20 14:12 SP (Rec: 06/09/20 14:15 SP [id number]) Functional Tests Timed Up and Go (TUG) Score 17.60 sec Comments at risk for falls PT-OP-G Mobility & Gait Start: 06/03/20 18:31 Freq: Status: Active Protocol: Document 06/06/20 12:47 LRN (Rec: 06/06/20 17:10 LRN [id number]) OP Mobility Evaluation Bed Mobility Supine to and from Sit Independent Transfers Sit to Stand Independent OP Gait Assessment Gait Gait Assistance Required: Independent Able to Maintain Weight Bearing Status Yes During Gait Assistive Devices Assistive Device Front Wheeled Walker Gait Deviations General Gait Pattern Flexed Trunk,Narrow Based Gait Factors Limiting Gait Function Factors Limiting Gait Function Decreased Strength,Pain Comments Gait Comments Pt's hips show excessive pelvic lateral shift when weight bearing. Stair Climbing Evaluation Evaluation Level of Assist On Stairs Independent Technique/Endurance Stair Climbing Technique Step to Step Comments Stair Climbing Comments Pt reports her gait pattern has not changed since her last rehab program 01/01/20-02/14. She ambulates up stairs step to step while holding onto one railing. She descends stair by holding onto one railing and going backwards. PT-OP-J Posture/Palpation/Skin Start: 06/03/20 18:31 Freq: Status: Active Protocol: Document 06/06/20 12:47 LRN (Rec: 06/06/20 13:38 LRN [id number]) Posture Evaluation Position Standing Head/C-Spine Posture Forward Head L-Spine Posture Increased Lordosis Pelvis Posture Anteriorly Tilted Weight Distribution Balanced Comments Posture Comments Flexed at hips 15 deg's Palpation Assessment Location R hip Palpation Location Superior to Greater trochanter L hip Palpation Location TFL muscle belly, Superior to Greater trochanter Palpation Findings Tenderness PT-OP-K Range of Motion Start: 06/03/20 18:31 Freq: Status: Active Protocol: Document 06/06/20 12:47 LRN (Rec: 06/06/20 13:38 LRN [id number]) Hip Goniometric Range of Motion Hip Right Passive Testing Position Supine except ext in prone Straight Leg Raise 60 Extension 5 Abduction 25 Internal Rotation 45 External Rotation 60 Left Passive Testing Position Supine except ext in prone Straight Leg Raise 80 Extension 3 Abduction 32 Internal Rotation 60 External Rotation 60 PT-OP-M Strength Start: 06/03/20 18:31 Freq: Status: Active Protocol: Document 06/26/20 12:49 LRN (Rec: 06/26/20 13:34 LRN [id number]) Hip Strength Hip Manual Muscle Testing Right Flexion (L2) 5 Normal Extension (S1) 3+ Fair+ Abduction 2- Poor- Adduction 3+ Fair+ External Rotation 3+ Fair+ Internal Rotation 2 Poor Left Flexion (L2) 5 Normal Extension (S1) 3- Fair- Abduction 2- Poor- Adduction 3+ Fair+ External Rotation 4 Good Internal Rotation 2- Poor- PT-OP-Q Treatments Start: 06/03/20 18:31 Freq: Status: Active Protocol: Document 06/26/20 12:49 LRN (Rec: 06/26/20 13:34 LRN [id number]) Therapeutic Exercises Supine Exercises 1 legged hip ABD Supine Exercise Name 1 legged hip AB at at time Side bilateral Resistance Lev 1 TB Reps/Minutes 15x 2 Comments Pt needed v. cuing for proper form hip ABD Supine Exercise Name hip abd (R side holding 5 sec at end-range) Side bilateral Resistance Lev 1, 1 band resistance Reps/Minutes 15x w/TB, 15 x 2 w/o TB Comments Training to keep R leg from externally rotating. Sidelying Exercises Hip Ext Sidelying Exercise Name Top leg hip ext w/assist to not let hip AD Side bilateral Reps/Minutes 10' for 10 reps each Comments Much time, training,cuing, and assist and stabilizing of pelvis Hip AB/AD Sidelying Exercise Name ECC Hip AB Side bilateral Reps/Minutes 15' Comments Much time and asst: Max A to lift legs into AB past neutral . R weaker Sitting Exercises Hip ER/IR Sitting Exercise Name Hip ER/IR Resistance Lev 1 TB PT-OP-T Assessment and Plan Start: 06/03/20 18:31 Freq: Status: Active Protocol: Document 06/26/20 12:49 LRN (Rec: 06/26/20 13:34 LRN [id number]) Physical Therapy Assessment Goals Four Impairment Lacks appropriate HEP Unit Educator Goal (LTG) Pt will be independent on a self care HEP. LTG Duration 08/08/20 3 Impairment LEFS score 48/80 (48-62 score is 20-39% impairment) STG Duration 07/02/20 Unit Educator Goal (LTG) Improve pt function per LEFS of 52 or greater (48-62 score is 20-39% impairment) LTG Duration 08/08/20 2 Impairment decreased Nathan hip strength Short Term Goal (STG) Increase Nathan hip strength 1/2 grade with focus on hip AB ( Initial strength: Flex is 3/5 nathan, Ext is 3+/5 R, 3-/5 L; AB is 2-/5 bilateral; AD is 3-/5 R, 3+/5 L; ER is 4/5 R, 3+/5 L; IR s 3+/5 R, 3-/5 L). (06/24/20: Flex 5/5 nathan; Ext 3 +/5 R, 3-/5 L; AB is 2-/5 bilateral; ER is 3+/5 R, 4/5 L ; IR is 2/5 R, 2-/5 L). STG Duration 07/02/20 Unit Educator Goal (LTG) Increase Nathan hip AB strength to 4/5 to improve functional mobility with gait. LTG Duration 08/08/20 1 Impairment antalgic gait with device Short Term Goal (STG) Patient able to ambulate with minimal limp on level surface with 1-2 canes or walking sticks. STG Duration 07/02/20 Fpc Goal (LTG) Patient able to ambulate safely with a cane on level surface outside the home. LTG Duration 08/08/20 Assessment Summary Assessment Hip AD strength improved on the L by 1/2 grade, no change with R side. Pt has fair hip AB strength only to neutral. Her combo hip ext/AB is very weak in neutral due to pt FB posturing with gait and standing, with hip flexor ms tightness partially causing hip flex, but also because of habitual FB posturing; therefore progress is very slow. Physical Therapy Plan Frequency and Duration Frequency of Treatment 2x/Week Plan of Care Start Date 06/06/20 Plan of Care End Date 08/08/20 Next Visit Focus/Plan Next Note Type Treatment Note Next Visit Plan Continue per focus on ex's for nathan hip AB strengthening, additionally hip ER & ext, and core strengthening. Advance to standing ex's.
--- NOTE | 2020-07-01 13:00 | PT.OTN ---
Current Diagnoses Trochanteric bursitis, right hip (07/01/20) Trochanteric bursitis, left hip (07/01/20) Iliotibial band syndrome, left leg (07/01/20) Physical Therapy Treatment Note PT-OP-A Visit Information Start: 06/03/20 18:31 Freq: Status: Active Protocol: Document 07/01/20 12:15 SP (Rec: 07/01/20 13:04 SP [id number]) Out-Patient Physical Therapy Visit Information Visit Information Visit Type Treatment Note Visit Start Time 12:15 Visit Stop Time 13:00 Total Visit Minutes 45 Visit Number 6 Number of RESIDENTIAL SALES Visits 1 PT-OP-B Current Condition Start: 06/03/20 18:31 Freq: Status: Active Protocol: Document 06/06/20 12:47 LRN (Rec: 06/06/20 13:38 LRN [id number]) Current Condition History of Current Condition Onset Date 10/2019 Current Complaints Nathan hips wobble when walking when not using a walker. History of Current Condition The pt is very familiar to me. She was being seen earily this year for similar diagnosis' prior to the onset of the COVID 19 Pandemic. See developmental history below. Pt is now being referred for bilateral Trochanteric Bursitis and left IT band tendonitis. Pt reports initial onset of bilateral hip pain that started as her knee rehab was ending in Oct. She states her knees are good now. Her problem is her hips. She states they want to wobble . They go from side to side and it is starting to bother her back. Future Testing and Treatments Planned None Developmental History Developmental History Medical Records indicate pt had 4 months of PT after a L knee surgery towards the end of 2018. She had reported trouble walking for over a year. She then had therapy for L trochanteric bursitis of the L hip and IT band syndrome. She had a cortisone injection in the L hip 12/03/19 with pain relief. She also had occasional R hip pain. She was in L hip rehab from 01/01/20 to 02/14/20 with her rehabilitation interrupted due to COVID 19 pandemic. Pt return today for bilateral Trochanteric Bursitis and left IT band tendonitis. Treatment Goals Patient/Caregiver Goals Pt goal is to be able to walk with less hip sway and with a cane. Prior Functional Status Baseline Function- ADL's Independent Baseline Function- Mobility Independent Baseline Function- Gait Walks w/cane & FWW Baseline Function- Recreation/Hobbies Pool ex 3x/week, last time exercised was in 2018 Baseline Function- Other Stairs: Goes backwards descending, ascending 1 step at time. Uses both hands on 1 rail. Current Functional Impairments (Reported) Functional Limitations- ADL's Walking with wobbly hips causing back pain. Functional Limitations- Mobility/Gait Walks with FWW. Functional Limitations- Other 14 stairs going down to basement and 6 stairs going up to outside. Railing on boths sides. Personal Factors Other Personal Factors That May Effect Spouse the pt feels is of Therapy/Recovery declining health Controlled HBP Diabetes II Osteopenia L TKA - 12 yrs ago, R TKA - . Hypothyroid, hx of RBBB PT-OP-C Subjective Start: 06/03/20 18:31 Freq: Status: Active Protocol: Document 07/01/20 12:15 SP (Rec: 07/01/20 13:04 SP [id number]) OP-PT Subjective Patient Comments Patient Comments Pt stated doing exercises 2x day, didn't this am due to wanting to go out on porch while cool outside. PT-OP-E Functional Tests Start: 06/03/20 18:31 Freq: Status: Active Protocol: Document 06/09/20 14:12 SP (Rec: 06/09/20 14:15 SP [id number]) Functional Tests Timed Up and Go (TUG) Score 17.60 sec Comments at risk for falls PT-OP-G Mobility & Gait Start: 06/03/20 18:31 Freq: Status: Active Protocol: Document 06/06/20 12:47 LRN (Rec: 06/06/20 17:10 LRN [id number]) OP Mobility Evaluation Bed Mobility Supine to and from Sit Independent Transfers Sit to Stand Independent OP Gait Assessment Gait Gait Assistance Required: Independent Able to Maintain Weight Bearing Status Yes During Gait Assistive Devices Assistive Device Front Wheeled Walker Gait Deviations General Gait Pattern Flexed Trunk,Narrow Based Gait Factors Limiting Gait Function Factors Limiting Gait Function Decreased Strength,Pain Comments Gait Comments Pt's hips show excessive pelvic lateral shift when weight bearing. Stair Climbing Evaluation Evaluation Level of Assist On Stairs Independent Technique/Endurance Stair Climbing Technique Step to Step Comments Stair Climbing Comments Pt reports her gait pattern has not changed since her last rehab program 01/01/20-02/14. She ambulates up stairs step to step while holding onto one railing. She descends stair by holding onto one railing and going backwards. PT-OP-J Posture/Palpation/Skin Start: 06/03/20 18:31 Freq: Status: Active Protocol: Document 06/06/20 12:47 LRN (Rec: 06/06/20 13:38 LRN [id number]) Posture Evaluation Position Standing Head/C-Spine Posture Forward Head L-Spine Posture Increased Lordosis Pelvis Posture Anteriorly Tilted Weight Distribution Balanced Comments Posture Comments Flexed at hips 15 deg's Palpation Assessment Location R hip Palpation Location Superior to Greater trochanter L hip Palpation Location TFL muscle belly, Superior to Greater trochanter Palpation Findings Tenderness PT-OP-K Range of Motion Start: 06/03/20 18:31 Freq: Status: Active Protocol: Document 06/06/20 12:47 LRN (Rec: 06/06/20 13:38 LRN [id number]) Hip Goniometric Range of Motion Hip Right Passive Testing Position Supine except ext in prone Straight Leg Raise 60 Extension 5 Abduction 25 Internal Rotation 45 External Rotation 60 Left Passive Testing Position Supine except ext in prone Straight Leg Raise 80 Extension 3 Abduction 32 Internal Rotation 60 External Rotation 60 PT-OP-M Strength Start: 06/03/20 18:31 Freq: Status: Active Protocol: Document 06/26/20 12:49 LRN (Rec: 06/26/20 13:34 LRN [id number]) Hip Strength Hip Manual Muscle Testing Right Flexion (L2) 5 Normal Extension (S1) 3+ Fair+ Abduction 2- Poor- Adduction 3+ Fair+ External Rotation 3+ Fair+ Internal Rotation 2 Poor Left Flexion (L2) 5 Normal Extension (S1) 3- Fair- Abduction 2- Poor- Adduction 3+ Fair+ External Rotation 4 Good Internal Rotation 2- Poor- PT-OP-Q Treatments Start: 06/03/20 18:31 Freq: Status: Active Protocol: Document 07/01/20 12:15 SP (Rec: 07/01/20 13:04 SP [id number]) Therapeutic Exercises Supine Exercises 1 legged hip ABD Supine Exercise Name 1 legged hip AB at at time Side bilateral Resistance Lev 1 TB Reps/Minutes 15x 2 Comments Pt needed v. cuing for no hip ER hip ABD Supine Exercise Name hip abd (R side holding 5 sec at end-range) Side bilateral Resistance Lev 1, 1 band resistance Reps/Minutes 15 x 2 w/ TB Comments Training to keep R leg from externally rotating. Sidelying Exercises Hip Ext Sidelying Exercise Name Top leg hip ext w/assist to not let hip AD Side bilateral Reps/Minutes 2x10 reps each Comments cuing and assist and stabilizing of pelvis Hip AB/AD Sidelying Exercise Name ECC Hip AB, concentric ADD Side bilateral Reps/Minutes 15' Comments Much time and asst: Mod A to lift legs into AB past neutral . L weaker toda Sitting Exercises hip abd band Resistance L2 Reps/Minutes 3x10 Comments cued slow controlled eccentric return to start pos Hip ER/IR Sitting Exercise Name Hip ER/IR Resistance AROM (unable do w/ band) Comments L LE contact suppport prevent hip abd. PT-OP-T Assessment and Plan Start: 06/03/20 18:31 Freq: Status: Active Protocol: Document 07/01/20 12:15 SP (Rec: 07/01/20 13:04 SP [id number]) Physical Therapy Assessment Goals Four Impairment Lacks appropriate HEP Fci Goal (LTG) Pt will be independent on a self care HEP. LTG Duration 08/08/20 3 Impairment LEFS score 48/80 (48-62 score is 20-39% impairment) STG Duration 07/02/20 Hand Picker Goal (LTG) Improve pt function per LEFS of 52 or greater (48-62 score is 20-39% impairment) LTG Duration 08/08/20 2 Impairment decreased Nathan hip strength Short Term Goal (STG) Increase Nathan hip strength 1/2 grade with focus on hip AB ( Initial strength: Flex is 3/5 nathan, Ext is 3+/5 R, 3-/5 L; AB is 2-/5 bilateral; AD is 3-/5 R, 3+/5 L; ER is 4/5 R, 3+/5 L; IR s 3+/5 R, 3-/5 L). (06/24/20: Flex 5/5 nathan; Ext 3 +/5 R, 3-/5 L; AB is 2-/5 bilateral; ER is 3+/5 R, 4/5 L ; IR is 2/5 R, 2-/5 L). STG Duration 07/02/20 Hand Picker Goal (LTG) Increase Nathan hip AB strength to 4/5 to improve functional mobility with gait. LTG Duration 08/08/20 1 Impairment antalgic gait with device Short Term Goal (STG) Patient able to ambulate with minimal limp on level surface with 1-2 canes or walking sticks. STG Duration 07/02/20 Hand Picker Goal (LTG) Patient able to ambulate safely with a cane on level surface outside the home. LTG Duration 08/08/20 Assessment Summary Assessment Tx focused on hip ABD strengthening and proper set up and form with manual assist decreased today Mod. Cuing for task at hand for better form helped. Her combo hip ext /AB is very weak L >R today. Physical Therapy Plan Frequency and Duration Frequency of Treatment 2x/Week Plan of Care Start Date 06/06/20 Plan of Care End Date 08/08/20 Therapeutic Interventions Therapeutic Interventions Balance Training,Gait Training ,Home Exercise Program,Manual Therapy,Neuromuscular Re- education,Patient/Caregiver Education,Self-Care/Home Management,Soft Tissue Mobilization,Taping, Therapeutic Exercises Modalities Hot Packs,Iontophoresis, Ultrasound Other Therapeutic Interventions Iontophoresis with 4mg/mL Dexamethasone with Sodium Phosphate. Next Visit Focus/Plan Next Note Type Treatment Note Next Visit Plan Assess reponse to last tx: continue review HEP: hip AB strengthening, additionally hip ER & ext, and core strengthening. Advance to standing ex's.
--- NOTE | 2020-07-03 20:53 | PT.OTN ---
Current Diagnoses Trochanteric bursitis, right hip (07/03/20) Trochanteric bursitis, left hip (07/03/20) Iliotibial band syndrome, left leg (07/03/20) Physical Therapy Treatment Note PT-OP-A Visit Information Start: 06/03/20 18:31 Freq: Status: Active Protocol: Document 07/03/20 12:46 LRN (Rec: 07/03/20 13:38 LRN [id number]) Out-Patient Physical Therapy Visit Information Visit Information Visit Type Treatment Note Visit Start Time 12:46 Visit Stop Time 13:37 Total Visit Minutes 51 Visit Number 7 Evaluation Information Evaluation Date 06/06/20 Precautions Precautions Diabetes II Osteopenia Nathan TKA Bruises easily Hx of RBBB PT-OP-B Current Condition Start: 06/03/20 18:31 Freq: Status: Active Protocol: Document 06/06/20 12:47 LRN (Rec: 06/06/20 13:38 LRN [id number]) Current Condition History of Current Condition Onset Date 10/2019 Current Complaints Nathan hips wobble when walking when not using a walker. History of Current Condition The pt is very familiar to me. She was being seen earily this year for similar diagnosis' prior to the onset of the COVID 19 Pandemic. See developmental history below. Pt is now being referred for bilateral Trochanteric Bursitis and left IT band tendonitis. Pt reports initial onset of bilateral hip pain that started as her knee rehab was ending in Oct. She states her knees are good now. Her problem is her hips. She states they want to wobble . They go from side to side and it is starting to bother her back. Future Testing and Treatments Planned None Developmental History Developmental History Medical Records indicate pt had 4 months of PT after a L knee surgery towards the end of 2018. She had reported trouble walking for over a year. She then had therapy for L trochanteric bursitis of the L hip and IT band syndrome. She had a cortisone injection in the L hip 12/03/19 with pain relief. She also had occasional R hip pain. She was in L hip rehab from 01/01/20 to 02/14/20 with her rehabilitation interrupted due to COVID 19 pandemic. Pt return today for bilateral Trochanteric Bursitis and left IT band tendonitis. Treatment Goals Patient/Caregiver Goals Pt goal is to be able to walk with less hip sway and with a cane. Prior Functional Status Baseline Function- ADL's Independent Baseline Function- Mobility Independent Baseline Function- Gait Walks w/cane & FWW Baseline Function- Recreation/Hobbies Pool ex 3x/week, last time exercised was in 2018 Baseline Function- Other Stairs: Goes backwards descending, ascending 1 step at time. Uses both hands on 1 rail. Current Functional Impairments (Reported) Functional Limitations- ADL's Walking with wobbly hips causing back pain. Functional Limitations- Mobility/Gait Walks with FWW. Functional Limitations- Other 14 stairs going down to basement and 6 stairs going up to outside. Railing on boths sides. Personal Factors Other Personal Factors That May Effect Spouse the pt feels is of Therapy/Recovery declining health Controlled HBP Diabetes II Osteopenia L TKA - 12 yrs ago, R TKA - . Hypothyroid, hx of RBBB PT-OP-C Subjective Start: 06/03/20 18:31 Freq: Status: Active Protocol: Document 07/03/20 12:46 LRN (Rec: 07/03/20 13:38 LRN [id number]) OP-PT Subjective Patient Comments Patient Comments Walked yesterday, doing exercises. PT-OP-E Functional Tests Start: 06/03/20 18:31 Freq: Status: Active Protocol: Document 06/09/20 14:12 SP (Rec: 06/09/20 14:15 SP [id number]) Functional Tests Timed Up and Go (TUG) Score 17.60 sec Comments at risk for falls PT-OP-G Mobility & Gait Start: 06/03/20 18:31 Freq: Status: Active Protocol: Document 06/06/20 12:47 LRN (Rec: 06/06/20 17:10 LRN [id number]) OP Mobility Evaluation Bed Mobility Supine to and from Sit Independent Transfers Sit to Stand Independent OP Gait Assessment Gait Gait Assistance Required: Independent Able to Maintain Weight Bearing Status Yes During Gait Assistive Devices Assistive Device Front Wheeled Walker Gait Deviations General Gait Pattern Flexed Trunk,Narrow Based Gait Factors Limiting Gait Function Factors Limiting Gait Function Decreased Strength,Pain Comments Gait Comments Pt's hips show excessive pelvic lateral shift when weight bearing. Stair Climbing Evaluation Evaluation Level of Assist On Stairs Independent Technique/Endurance Stair Climbing Technique Step to Step Comments Stair Climbing Comments Pt reports her gait pattern has not changed since her last rehab program 01/01/20-02/14. She ambulates up stairs step to step while holding onto one railing. She descends stair by holding onto one railing and going backwards. PT-OP-J Posture/Palpation/Skin Start: 06/03/20 18:31 Freq: Status: Active Protocol: Document 06/06/20 12:47 LRN (Rec: 06/06/20 13:38 LRN [id number]) Posture Evaluation Position Standing Head/C-Spine Posture Forward Head L-Spine Posture Increased Lordosis Pelvis Posture Anteriorly Tilted Weight Distribution Balanced Comments Posture Comments Flexed at hips 15 deg's Palpation Assessment Location R hip Palpation Location Superior to Greater trochanter L hip Palpation Location TFL muscle belly, Superior to Greater trochanter Palpation Findings Tenderness PT-OP-K Range of Motion Start: 06/03/20 18:31 Freq: Status: Active Protocol: Document 06/06/20 12:47 LRN (Rec: 06/06/20 13:38 LRN [id number]) Hip Goniometric Range of Motion Hip Right Passive Testing Position Supine except ext in prone Straight Leg Raise 60 Extension 5 Abduction 25 Internal Rotation 45 External Rotation 60 Left Passive Testing Position Supine except ext in prone Straight Leg Raise 80 Extension 3 Abduction 32 Internal Rotation 60 External Rotation 60 PT-OP-M Strength Start: 06/03/20 18:31 Freq: Status: Active Protocol: Document 06/26/20 12:49 LRN (Rec: 06/26/20 13:34 LRN [id number]) Hip Strength Hip Manual Muscle Testing Right Flexion (L2) 5 Normal Extension (S1) 3+ Fair+ Abduction 2- Poor- Adduction 3+ Fair+ External Rotation 3+ Fair+ Internal Rotation 2 Poor Left Flexion (L2) 5 Normal Extension (S1) 3- Fair- Abduction 2- Poor- Adduction 3+ Fair+ External Rotation 4 Good Internal Rotation 2- Poor- PT-OP-Q Treatments Start: 06/03/20 18:31 Freq: Status: Active Protocol: Document 07/03/20 12:46 LRN (Rec: 07/03/20 13:38 LRN [id number]) Therapeutic Exercises Supine Exercises 1 legged hip ABD Supine Exercise Name 1 legged hip AB at at time Side bilateral Resistance Lev 1 TB Reps/Minutes 10x Comments Pt needed v. cuing for no hip ER hip ABD Supine Exercise Name hip abd (R side holding 5 sec at end-range) Side bilateral Reps/Minutes 10 x 2 Comments [place] to keep L leg from externally rotating. Sitting Exercises Trunk Flex Sitting Exercise Name Trunk Flex Resistance Lev 1 double band Reps/Minutes 10 x 3 Trunk rotation Sitting Exercise Name Trunk rotation Side bilateral Resistance Lev 1, single band Reps/Minutes 10 x 3 Hip ER/IR Sitting Exercise Name Hip ER/IR Side bilateral Resistance Lev 2 TBand Reps/Minutes 10x 3 Standing Exercises Trunk rot Standing Exercise Name Trunk rot Side bilateral Resistance Lev 2 T-Band, single band Reps/Minutes 15 x 3 Gait Training Gait Activity Gait with Assist Device Description Gait with 2 SPC's - 4pt walking Device Used SPC Level of Assistance SBA Surface Level/Firm Distance/Duration 75' x 2 Comments Pt v. cuing for upright posturing, Abdominal splinting and tightening of gluteals/ hip AB's with each step. Pt putting probably 90% WBing through UE's. PT-OP-T Assessment and Plan Start: 06/03/20 18:31 Freq: Status: Active Protocol: Document 07/03/20 12:46 LRN (Rec: 07/03/20 13:38 LRN [id number]) Physical Therapy Assessment Goals Four Impairment Lacks appropriate HEP Dry Folder Cloth Goal (LTG) Pt will be independent on a self care HEP. LTG Duration 08/08/20 3 Impairment LEFS score 48/80 (48-62 score is 20-39% impairment) STG Duration 07/02/20 Long-Term Goal (LTG) Improve pt function per LEFS of 52 or greater (48-62 score is 20-39% impairment) LTG Duration 08/08/20 2 Impairment decreased Nathan hip strength Short Term Goal (STG) Increase Nathan hip strength 1/2 grade with focus on hip AB ( Initial strength: Flex is 3/5 nathan, Ext is 3+/5 R, 3-/5 L; AB is 2-/5 bilateral; AD is 3-/5 R, 3+/5 L; ER is 4/5 R, 3+/5 L; IR s 3+/5 R, 3-/5 L). (06/24/20: Flex 5/5 nathan; Ext 3 +/5 R, 3-/5 L; AB is 2-/5 bilateral; ER is 3+/5 R, 4/5 L ; IR is 2/5 R, 2-/5 L). STG Duration 07/02/20 Dry Folder Cloth Goal (LTG) Increase Nathan hip AB strength to 4/5 to improve functional mobility with gait. LTG Duration 08/08/20 1 Impairment antalgic gait with device Short Term Goal (STG) Patient able to ambulate with minimal limp on level surface with 1-2 canes or walking sticks. (07/03/20: Pt ambs with 2 SPC with minimal hip shift on WBing). STG Duration 07/02/20 (07/03/20: MET GOAL) Long-Term Goal (LTG) Patient able to ambulate safely with a cane on level surface outside the home. LTG Duration 08/08/20 Progress Towards Goals Progress Comments Goal #! STG: MET. Pt able to ambulate safely with 2 SPC's with minimal hip sway/limp. Assessment Summary Assessment Pt is reporting no change. Pt had some difficulty remembering HEP exercises issued although not new. Pt ambs with good mechanics when putting majority of weight through UE's and assistive device. Her combo hip ext/AB is still very weak L>R. Physical Therapy Plan Frequency and Duration Frequency of Treatment 2x/Week Plan of Care Start Date 06/06/20 Plan of Care End Date 08/08/20 Next Visit Focus/Plan Next Note Type Treatment Note Next Visit Plan Review HEP from last treatment : trunk flex and rotation in sitting. Cont progressing hip AB and core strengthening, additionally hip ER & ext strengthening and issue HEP. Advance standing ex's.
--- NOTE | 2020-07-07 17:59 | PT.OTN ---
Current Diagnoses Trochanteric bursitis, right hip (07/07/20) Trochanteric bursitis, left hip (07/07/20) Iliotibial band syndrome, left leg (07/07/20) Physical Therapy Treatment Note PT-OP-A Visit Information Start: 06/03/20 18:31 Freq: Status: Active Protocol: Document 07/07/20 09:58 LRN (Rec: 07/07/20 10:32 LRN [id number]) Out-Patient Physical Therapy Visit Information Visit Information Visit Type Treatment Note Visit Start Time 09:58 Visit Stop Time 10:42 Total Visit Minutes 44 Visit Number 8 Evaluation Information Evaluation Date 06/06/20 Precautions Precautions Diabetes II Osteopenia Nathan TKA Bruises easily Hx of RBBB PT-OP-B Current Condition Start: 06/03/20 18:31 Freq: Status: Active Protocol: Document 06/06/20 12:47 LRN (Rec: 06/06/20 13:38 LRN [id number]) Current Condition History of Current Condition Onset Date 10/2019 Current Complaints Nathan hips wobble when walking when not using a walker. History of Current Condition The pt is very familiar to me. She was being seen earily this year for similar diagnosis' prior to the onset of the COVID 19 Pandemic. See developmental history below. Pt is now being referred for bilateral Trochanteric Bursitis and left IT band tendonitis. Pt reports initial onset of bilateral hip pain that started as her knee rehab was ending in Oct. She states her knees are good now. Her problem is her hips. She states they want to wobble . They go from side to side and it is starting to bother her back. Future Testing and Treatments Planned None Developmental History Developmental History Medical Records indicate pt had 4 months of PT after a L knee surgery towards the end of 2018. She had reported trouble walking for over a year. She then had therapy for L trochanteric bursitis of the L hip and IT band syndrome. She had a cortisone injection in the L hip 12/03/19 with pain relief. She also had occasional R hip pain. She was in L hip rehab from 01/01/20 to 02/14/20 with her rehabilitation interrupted due to COVID 19 pandemic. Pt return today for bilateral Trochanteric Bursitis and left IT band tendonitis. Treatment Goals Patient/Caregiver Goals Pt goal is to be able to walk with less hip sway and with a cane. Prior Functional Status Baseline Function- ADL's Independent Baseline Function- Mobility Independent Baseline Function- Gait Walks w/cane & FWW Baseline Function- Recreation/Hobbies Pool ex 3x/week, last time exercised was in 2018 Baseline Function- Other Stairs: Goes backwards descending, ascending 1 step at time. Uses both hands on 1 rail. Current Functional Impairments (Reported) Functional Limitations- ADL's Walking with wobbly hips causing back pain. Functional Limitations- Mobility/Gait Walks with FWW. Functional Limitations- Other 14 stairs going down to basement and 6 stairs going up to outside. Railing on boths sides. Personal Factors Other Personal Factors That May Effect Spouse the pt feels is of Therapy/Recovery declining health Controlled HBP Diabetes II Osteopenia L TKA - 12 yrs ago, R TKA - . Hypothyroid, hx of RBBB PT-OP-C Subjective Start: 06/03/20 18:31 Freq: Status: Active Protocol: Document 07/07/20 09:58 LRN (Rec: 07/07/20 10:32 LRN [id number]) OP-PT Subjective Patient Comments Patient Comments Walked twice this week. PT-OP-E Functional Tests Start: 06/03/20 18:31 Freq: Status: Active Protocol: Document 06/09/20 14:12 SP (Rec: 06/09/20 14:15 SP [id number]) Functional Tests Timed Up and Go (TUG) Score 17.60 sec Comments at risk for falls PT-OP-G Mobility & Gait Start: 06/03/20 18:31 Freq: Status: Active Protocol: Document 06/06/20 12:47 LRN (Rec: 06/06/20 17:10 LRN [id number]) OP Mobility Evaluation Bed Mobility Supine to and from Sit Independent Transfers Sit to Stand Independent OP Gait Assessment Gait Gait Assistance Required: Independent Able to Maintain Weight Bearing Status Yes During Gait Assistive Devices Assistive Device Front Wheeled Walker Gait Deviations General Gait Pattern Flexed Trunk,Narrow Based Gait Factors Limiting Gait Function Factors Limiting Gait Function Decreased Strength,Pain Comments Gait Comments Pt's hips show excessive pelvic lateral shift when weight bearing. Stair Climbing Evaluation Evaluation Level of Assist On Stairs Independent Technique/Endurance Stair Climbing Technique Step to Step Comments Stair Climbing Comments Pt reports her gait pattern has not changed since her last rehab program 01/01/20-02/14. She ambulates up stairs step to step while holding onto one railing. She descends stair by holding onto one railing and going backwards. PT-OP-J Posture/Palpation/Skin Start: 06/03/20 18:31 Freq: Status: Active Protocol: Document 06/06/20 12:47 LRN (Rec: 06/06/20 13:38 LRN [id number]) Posture Evaluation Position Standing Head/C-Spine Posture Forward Head L-Spine Posture Increased Lordosis Pelvis Posture Anteriorly Tilted Weight Distribution Balanced Comments Posture Comments Flexed at hips 15 deg's Palpation Assessment Location R hip Palpation Location Superior to Greater trochanter L hip Palpation Location TFL muscle belly, Superior to Greater trochanter Palpation Findings Tenderness PT-OP-K Range of Motion Start: 06/03/20 18:31 Freq: Status: Active Protocol: Document 06/06/20 12:47 LRN (Rec: 06/06/20 13:38 LRN [id number]) Hip Goniometric Range of Motion Hip Right Passive Testing Position Supine except ext in prone Straight Leg Raise 60 Extension 5 Abduction 25 Internal Rotation 45 External Rotation 60 Left Passive Testing Position Supine except ext in prone Straight Leg Raise 80 Extension 3 Abduction 32 Internal Rotation 60 External Rotation 60 PT-OP-M Strength Start: 06/03/20 18:31 Freq: Status: Active Protocol: Document 06/26/20 12:49 LRN (Rec: 06/26/20 13:34 LRN [id number]) Hip Strength Hip Manual Muscle Testing Right Flexion (L2) 5 Normal Extension (S1) 3+ Fair+ Abduction 2- Poor- Adduction 3+ Fair+ External Rotation 3+ Fair+ Internal Rotation 2 Poor Left Flexion (L2) 5 Normal Extension (S1) 3- Fair- Abduction 2- Poor- Adduction 3+ Fair+ External Rotation 4 Good Internal Rotation 2- Poor- PT-OP-Q Treatments Start: 06/03/20 18:31 Freq: Status: Active Protocol: Document 07/07/20 09:58 LRN (Rec: 07/07/20 10:32 LRN [id number]) Cardio Equipment Recumbent Stepper (Sci-Fit) Duration (Minutes) 10 Resistance 1 Seat Position 12 Other Focus on trunk strengthening Therapeutic Exercises Supine Exercises hip ABD Supine Exercise Name hip abd (R side holding 5 sec at end-range) Side bilateral Equipment Used towel roll under back Reps/Minutes 10 x 2 Comments [place] to keep L leg from externally rotating. Sidelying Exercises Hip Ext Sidelying Exercise Name Top leg hip ext w/assist to not let hip AD Side bilateral Reps/Minutes 2x10 reps each Comments cuing and assist and stabilizing of pelvis Hip AB/AD Sidelying Exercise Name ECC Hip AB, concentric ADD Side bilateral Reps/Minutes 15' Comments Much time and asst: Mod A to lift legs into AB past neutral . L weaker toda Standing Exercises Trunk Flex Standing Exercise Name Trunk Flex Resistance L2 T Band Reps/Minutes 10 x 3 Trunk rot Standing Exercise Name Trunk rot Side bilateral Resistance Lev 2 T-Band, single band Reps/Minutes 15 x 3 PT-OP-T Assessment and Plan Start: 06/03/20 18:31 Freq: Status: Active Protocol: Document 07/07/20 09:58 LRN (Rec: 07/07/20 10:32 LRN [id number]) Physical Therapy Assessment Goals Four Impairment Lacks appropriate HEP Airplane Rental Clerk Goal (LTG) Pt will be independent on a self care HEP. LTG Duration 08/08/20 3 Impairment LEFS score 48/80 (48-62 score is 20-39% impairment) STG Duration 07/02/20 Correction Goal (LTG) Improve pt function per LEFS of 52 or greater (48-62 score is 20-39% impairment) LTG Duration 08/08/20 2 Impairment decreased Nathan hip strength Short Term Goal (STG) Increase Nathan hip strength 1/2 grade with focus on hip AB ( Initial strength: Flex is 3/5 nathan, Ext is 3+/5 R, 3-/5 L; AB is 2-/5 bilateral; AD is 3-/5 R, 3+/5 L; ER is 4/5 R, 3+/5 L; IR s 3+/5 R, 3-/5 L). (06/24/20: Flex 5/5 nathan; Ext 3 +/5 R, 3-/5 L; AB is 2-/5 bilateral; ER is 3+/5 R, 4/5 L ; IR is 2/5 R, 2-/5 L). STG Duration 07/02/20 Airplane Rental Clerk Goal (LTG) Increase Nathan hip AB strength to 4/5 to improve functional mobility with gait. LTG Duration 08/08/20 1 Impairment antalgic gait with device Short Term Goal (STG) Patient able to ambulate with minimal limp on level surface with 1-2 canes or walking sticks. (07/03/20: Pt ambs with 2 SPC with minimal hip shift on WBing). STG Duration 07/02/20 (07/03/20: MET GOAL) Correction Goal (LTG) Patient able to ambulate safely with a cane on level surface outside the home. LTG Duration 08/08/20 Progress Towards Goals Progress Comments Pt was able to be safe with standing trunk flex with no signs of LOB with forward bending. Assessment Summary Assessment Pt appears to remember new ex' s; therefore being consistent with HEP. Physical Therapy Plan Frequency and Duration Frequency of Treatment 2x/Week Plan of Care Start Date 06/06/20 Plan of Care End Date 08/08/20 Next Visit Focus/Plan Next Note Type Treatment Note Next Visit Plan Gait training with cane, trying 1 cane for stability of trunk/hips (goal 1) Cont progressing hip AB and core strengthening, Add hip ER strengthening and issue HEP. HEP for hip ext strengthening. Advance standing ex's.
--- NOTE | 2020-07-10 14:10 | PT.OTN ---
Current Diagnoses Trochanteric bursitis, right hip (07/10/20) Trochanteric bursitis, left hip (07/10/20) Iliotibial band syndrome, left leg (07/10/20) Physical Therapy Treatment Note PT-OP-A Visit Information Start: 06/03/20 18:31 Freq: Status: Active Protocol: Document 07/10/20 10:43 LRN (Rec: 07/10/20 10:57 LRN [id number]) Out-Patient Physical Therapy Visit Information Visit Information Visit Type Treatment Note Visit Start Time 10:43 Visit Stop Time 11:28 Total Visit Minutes 45 Visit Number 9 Evaluation Information Evaluation Date 06/06/20 Precautions Precautions Diabetes II Osteopenia Nathan TKA Bruises easily Hx of RBBB PT-OP-B Current Condition Start: 06/03/20 18:31 Freq: Status: Active Protocol: Document 06/06/20 12:47 LRN (Rec: 06/06/20 13:38 LRN [id number]) Current Condition History of Current Condition Onset Date 10/2019 Current Complaints Nathan hips wobble when walking when not using a walker. History of Current Condition The pt is very familiar to me. She was being seen earily this year for similar diagnosis' prior to the onset of the COVID 19 Pandemic. See developmental history below. Pt is now being referred for bilateral Trochanteric Bursitis and left IT band tendonitis. Pt reports initial onset of bilateral hip pain that started as her knee rehab was ending in Oct. She states her knees are good now. Her problem is her hips. She states they want to wobble . They go from side to side and it is starting to bother her back. Future Testing and Treatments Planned None Developmental History Developmental History Medical Records indicate pt had 4 months of PT after a L knee surgery towards the end of 2018. She had reported trouble walking for over a year. She then had therapy for L trochanteric bursitis of the L hip and IT band syndrome. She had a cortisone injection in the L hip 12/03/19 with pain relief. She also had occasional R hip pain. She was in L hip rehab from 01/01/20 to 02/14/20 with her rehabilitation interrupted due to COVID 19 pandemic. Pt return today for bilateral Trochanteric Bursitis and left IT band tendonitis. Treatment Goals Patient/Caregiver Goals Pt goal is to be able to walk with less hip sway and with a cane. Prior Functional Status Baseline Function- ADL's Independent Baseline Function- Mobility Independent Baseline Function- Gait Walks w/cane & FWW Baseline Function- Recreation/Hobbies Pool ex 3x/week, last time exercised was in 2018 Baseline Function- Other Stairs: Goes backwards descending, ascending 1 step at time. Uses both hands on 1 rail. Current Functional Impairments (Reported) Functional Limitations- ADL's Walking with wobbly hips causing back pain. Functional Limitations- Mobility/Gait Walks with FWW. Functional Limitations- Other 14 stairs going down to basement and 6 stairs going up to outside. Railing on boths sides. Personal Factors Other Personal Factors That May Effect Spouse the pt feels is of Therapy/Recovery declining health Controlled HBP Diabetes II Osteopenia L TKA - 12 yrs ago, R TKA - . Hypothyroid, hx of RBBB PT-OP-C Subjective Start: 06/03/20 18:31 Freq: Status: Active Protocol: Document 07/10/20 10:43 LRN (Rec: 07/10/20 10:57 LRN [id number]) OP-PT Subjective Patient Comments Patient Comments States she is walking 1.5 miles, 6 of 7 days. Only thing that hurts is her back. PT-OP-E Functional Tests Start: 06/03/20 18:31 Freq: Status: Active Protocol: Document 06/09/20 14:12 SP (Rec: 06/09/20 14:15 SP [id number]) Functional Tests Timed Up and Go (TUG) Score 17.60 sec Comments at risk for falls PT-OP-G Mobility & Gait Start: 06/03/20 18:31 Freq: Status: Active Protocol: Document 06/06/20 12:47 LRN (Rec: 06/06/20 17:10 LRN [id number]) OP Mobility Evaluation Bed Mobility Supine to and from Sit Independent Transfers Sit to Stand Independent OP Gait Assessment Gait Gait Assistance Required: Independent Able to Maintain Weight Bearing Status Yes During Gait Assistive Devices Assistive Device Front Wheeled Walker Gait Deviations General Gait Pattern Flexed Trunk,Narrow Based Gait Factors Limiting Gait Function Factors Limiting Gait Function Decreased Strength,Pain Comments Gait Comments Pt's hips show excessive pelvic lateral shift when weight bearing. Stair Climbing Evaluation Evaluation Level of Assist On Stairs Independent Technique/Endurance Stair Climbing Technique Step to Step Comments Stair Climbing Comments Pt reports her gait pattern has not changed since her last rehab program 01/01/20-02/14. She ambulates up stairs step to step while holding onto one railing. She descends stair by holding onto one railing and going backwards. PT-OP-J Posture/Palpation/Skin Start: 06/03/20 18:31 Freq: Status: Active Protocol: Document 06/06/20 12:47 LRN (Rec: 06/06/20 13:38 LRN [id number]) Posture Evaluation Position Standing Head/C-Spine Posture Forward Head L-Spine Posture Increased Lordosis Pelvis Posture Anteriorly Tilted Weight Distribution Balanced Comments Posture Comments Flexed at hips 15 deg's Palpation Assessment Location R hip Palpation Location Superior to Greater trochanter L hip Palpation Location TFL muscle belly, Superior to Greater trochanter Palpation Findings Tenderness PT-OP-K Range of Motion Start: 06/03/20 18:31 Freq: Status: Active Protocol: Document 06/06/20 12:47 LRN (Rec: 06/06/20 13:38 LRN [id number]) Hip Goniometric Range of Motion Hip Right Passive Testing Position Supine except ext in prone Straight Leg Raise 60 Extension 5 Abduction 25 Internal Rotation 45 External Rotation 60 Left Passive Testing Position Supine except ext in prone Straight Leg Raise 80 Extension 3 Abduction 32 Internal Rotation 60 External Rotation 60 PT-OP-M Strength Start: 06/03/20 18:31 Freq: Status: Active Protocol: Document 06/26/20 12:49 LRN (Rec: 06/26/20 13:34 LRN [id number]) Hip Strength Hip Manual Muscle Testing Right Flexion (L2) 5 Normal Extension (S1) 3+ Fair+ Abduction 2- Poor- Adduction 3+ Fair+ External Rotation 3+ Fair+ Internal Rotation 2 Poor Left Flexion (L2) 5 Normal Extension (S1) 3- Fair- Abduction 2- Poor- Adduction 3+ Fair+ External Rotation 4 Good Internal Rotation 2- Poor- PT-OP-Q Treatments Start: 06/03/20 18:31 Freq: Status: Active Protocol: Document 07/10/20 10:43 LRN (Rec: 07/10/20 10:57 LRN [id number]) Cardio Equipment Recumbent Elliptical (Biodex) Duration (Minutes) 10 Resistance 1 Seat Position 10 Other Back rest used Therapeutic Exercises Standing Exercises PNF patterns for core stab Standing Exercise Name PNF for core stab Side bilateral Reps/Minutes 4' Comments Movement training Trunk Flex Standing Exercise Name Trunk Flex Resistance L3 T Band Reps/Minutes 15 x 3 Comments Phys cuing and stabilizing needed to keep hip flex out of ex. Trunk rot Standing Exercise Name Trunk rot Side bilateral Resistance Lev 3 T-Band, single band Reps/Minutes 15 x 3 Comments v. cuing needed repeatedly for trunk rot vs arms pulling. Gait Training Gait Activity Gait with Assist Device Description Gait w/2 canes Level of Assistance CGA Surface level Distance/Duration 8' Treatment Focus Decreasing wgt bearing thru arms while maintaining core/ pelvic stability Comments Pt wgt bearing through arms 40 % per pt report, not able to progress to 1 cane due to poor hip/pelvic stability. Self-Care/Home Management Treatment Education Patient Education Home Exercise Program Activities Self-Care/Home Management Activities Picture Handout issued & reviewed for trunk PNF rot strengthening with T-Band. PT-OP-T Assessment and Plan Start: 06/03/20 18:31 Freq: Status: Active Protocol: Document 07/10/20 10:43 LRN (Rec: 07/10/20 10:57 LRN [id number]) Physical Therapy Assessment Goals Four Impairment Lacks appropriate HEP Half-Way Goal (LTG) Pt will be independent on a self care HEP. LTG Duration 08/08/20 (07/10/20: Progressing) 3 Impairment LEFS score 48/80 (48-62 score is 20-39% impairment) STG Duration 07/02/20 Electric Train Driver Goal (LTG) Improve pt function per LEFS of 52 or greater (48-62 score is 20-39% impairment) LTG Duration 08/08/20 2 Impairment decreased Nathan hip strength Short Term Goal (STG) Increase Nathan hip strength 1/2 grade with focus on hip AB ( Initial strength: Flex is 3/5 nathan, Ext is 3+/5 R, 3-/5 L; AB is 2-/5 bilateral; AD is 3-/5 R, 3+/5 L; ER is 4/5 R, 3+/5 L; IR s 3+/5 R, 3-/5 L). (06/24/20: Flex 5/5 nathan; Ext 3 +/5 R, 3-/5 L; AB is 2-/5 bilateral; ER is 3+/5 R, 4/5 L ; IR is 2/5 R, 2-/5 L). STG Duration 07/02/20 Half-Way Goal (LTG) Increase Nathan hip AB strength to 4/5 to improve functional mobility with gait. LTG Duration 08/08/20 1 Impairment antalgic gait with device Short Term Goal (STG) Patient able to ambulate with minimal limp on level surface with 1-2 canes or walking sticks. (07/03/20: Pt ambs with 2 SPC with minimal hip shift on WBing). STG Duration 07/02/20 (07/03/20: MET GOAL) Electric Train Driver Goal (LTG) Patient able to ambulate safely with a cane on level surface outside the home. LTG Duration 08/08/20 Progress Towards Goals Progress Comments Pt able to maintain hip control with 40% WBing through the UE's. Assessment Summary Assessment Pt is able to walk without excessive hip sway using 2 canes. She begins to have excessive hip sway on the side of the cane when using just one cane. Physical Therapy Plan Frequency and Duration Frequency of Treatment 2x/Week Plan of Care Start Date 06/06/20 Plan of Care End Date 08/08/20 Next Visit Focus/Plan Next Note Type Progress Note Next Visit Plan Assess for PN. Gait training with 1 cane for stability of trunk/hips (goal 1) Cont progressing hip AB and core strengthening, Add hip ER strengthening and issue HEP. HEP for hip ext strengthening. Advance standing ex's.
--- NOTE | 2020-07-14 11:16 | PT.OTN ---
Current Diagnoses Trochanteric bursitis, right hip (07/14/20) Trochanteric bursitis, left hip (07/14/20) Iliotibial band syndrome, left leg (07/14/20) Physical Therapy Treatment Note PT-OP-A Visit Information Start: 06/03/20 18:31 Freq: Status: Active Protocol: Document 07/14/20 09:50 LRN (Rec: 07/14/20 11:15 LRN [id number]) Out-Patient Physical Therapy Visit Information Visit Information Visit Type Treatment Note Visit Start Time 09:51 Visit Stop Time 10:35 Total Visit Minutes 44 Visit Number 10 Evaluation Information Evaluation Date 06/06/20 Precautions Precautions Diabetes II Osteopenia Nathan TKA Bruises easily Hx of RBBB PT-OP-B Current Condition Start: 06/03/20 18:31 Freq: Status: Active Protocol: Document 06/06/20 12:47 LRN (Rec: 06/06/20 13:38 LRN [id number]) Current Condition History of Current Condition Onset Date 10/2019 Current Complaints Nathan hips wobble when walking when not using a walker. History of Current Condition The pt is very familiar to me. She was being seen earily this year for similar diagnosis' prior to the onset of the COVID 19 Pandemic. See developmental history below. Pt is now being referred for bilateral Trochanteric Bursitis and left IT band tendonitis. Pt reports initial onset of bilateral hip pain that started as her knee rehab was ending in Oct. She states her knees are good now. Her problem is her hips. She states they want to wobble . They go from side to side and it is starting to bother her back. Future Testing and Treatments Planned None Developmental History Developmental History Medical Records indicate pt had 4 months of PT after a L knee surgery towards the end of 2018. She had reported trouble walking for over a year. She then had therapy for L trochanteric bursitis of the L hip and IT band syndrome. She had a cortisone injection in the L hip 12/03/19 with pain relief. She also had occasional R hip pain. She was in L hip rehab from 01/01/20 to 02/14/20 with her rehabilitation interrupted due to COVID 19 pandemic. Pt return today for bilateral Trochanteric Bursitis and left IT band tendonitis. Treatment Goals Patient/Caregiver Goals Pt goal is to be able to walk with less hip sway and with a cane. Prior Functional Status Baseline Function- ADL's Independent Baseline Function- Mobility Independent Baseline Function- Gait Walks w/cane & FWW Baseline Function- Recreation/Hobbies Pool ex 3x/week, last time exercised was in 2018 Baseline Function- Other Stairs: Goes backwards descending, ascending 1 step at time. Uses both hands on 1 rail. Current Functional Impairments (Reported) Functional Limitations- ADL's Walking with wobbly hips causing back pain. Functional Limitations- Mobility/Gait Walks with FWW. Functional Limitations- Other 14 stairs going down to basement and 6 stairs going up to outside. Railing on boths sides. Personal Factors Other Personal Factors That May Effect Spouse the pt feels is of Therapy/Recovery declining health Controlled HBP Diabetes II Osteopenia L TKA - 12 yrs ago, R TKA - . Hypothyroid, hx of RBBB PT-OP-C Subjective Start: 06/03/20 18:31 Freq: Status: Active Protocol: Document 07/14/20 09:50 LRN (Rec: 07/14/20 11:15 LRN [id number]) OP-PT Subjective Patient Comments Patient Comments Back is hurting. PT-OP-E Functional Tests Start: 06/03/20 18:31 Freq: Status: Active Protocol: Document 06/09/20 14:12 SP (Rec: 06/09/20 14:15 SP [id number]) Functional Tests Timed Up and Go (TUG) Score 17.60 sec Comments at risk for falls PT-OP-G Mobility & Gait Start: 06/03/20 18:31 Freq: Status: Active Protocol: Document 06/06/20 12:47 LRN (Rec: 06/06/20 17:10 LRN [id number]) OP Mobility Evaluation Bed Mobility Supine to and from Sit Independent Transfers Sit to Stand Independent OP Gait Assessment Gait Gait Assistance Required: Independent Able to Maintain Weight Bearing Status Yes During Gait Assistive Devices Assistive Device Front Wheeled Walker Gait Deviations General Gait Pattern Flexed Trunk,Narrow Based Gait Factors Limiting Gait Function Factors Limiting Gait Function Decreased Strength,Pain Comments Gait Comments Pt's hips show excessive pelvic lateral shift when weight bearing. Stair Climbing Evaluation Evaluation Level of Assist On Stairs Independent Technique/Endurance Stair Climbing Technique Step to Step Comments Stair Climbing Comments Pt reports her gait pattern has not changed since her last rehab program 01/01/20-02/14. She ambulates up stairs step to step while holding onto one railing. She descends stair by holding onto one railing and going backwards. PT-OP-J Posture/Palpation/Skin Start: 06/03/20 18:31 Freq: Status: Active Protocol: Document 06/06/20 12:47 LRN (Rec: 06/06/20 13:38 LRN [id number]) Posture Evaluation Position Standing Head/C-Spine Posture Forward Head L-Spine Posture Increased Lordosis Pelvis Posture Anteriorly Tilted Weight Distribution Balanced Comments Posture Comments Flexed at hips 15 deg's Palpation Assessment Location R hip Palpation Location Superior to Greater trochanter L hip Palpation Location TFL muscle belly, Superior to Greater trochanter Palpation Findings Tenderness PT-OP-K Range of Motion Start: 06/03/20 18:31 Freq: Status: Active Protocol: Document 06/06/20 12:47 LRN (Rec: 06/06/20 13:38 LRN [id number]) Hip Goniometric Range of Motion Hip Right Passive Testing Position Supine except ext in prone Straight Leg Raise 60 Extension 5 Abduction 25 Internal Rotation 45 External Rotation 60 Left Passive Testing Position Supine except ext in prone Straight Leg Raise 80 Extension 3 Abduction 32 Internal Rotation 60 External Rotation 60 PT-OP-M Strength Start: 06/03/20 18:31 Freq: Status: Active Protocol: Document 07/14/20 09:50 LRN (Rec: 07/14/20 11:15 LRN [id number]) Hip Strength Hip Manual Muscle Testing Right Flexion (L2) 5 Normal Extension (S1) 3 Fair Abduction 2- Poor- Adduction 3- Fair- External Rotation 4 Good Internal Rotation 3+ Fair+ Left Flexion (L2) 5 Normal Extension (S1) 3 Fair Abduction 2- Poor- Adduction 4 Good External Rotation 3+ Fair+ Internal Rotation 3- Fair- PT-OP-Q Treatments Start: 06/03/20 18:31 Freq: Status: Active Protocol: Document 07/14/20 09:50 LRN (Rec: 07/14/20 11:15 LRN [id number]) Therapeutic Exercises Supine Exercises SLR Supine Exercise Name SLR Side bilateral Comments MMT taken Sidelying Exercises Hip Ext Sidelying Exercise Name Hip Ext Side bilateral Reps/Minutes 2x each Comments Phys cuing needed to prevent substitution with trunk extensors, MMT taken Hip AB/AD Sidelying Exercise Name Hip AB Side bilateral Reps/Minutes 5' Comments MMT taken. Pt needed assist to guide movement of leg Sitting Exercises Hip ER/IR Sitting Exercise Name Active hip IR/ER Side bilateral Reps/Minutes 10x on L Comments Weakness L>R, MMT taken Standing Exercises Hip AB Standing Exercise Name Hip AB Side bilateral Reps/Minutes 10 x 3 Gait Training Gait Activity Gait with Assist Device Description Gait w/2 canes and with one on L, then one on R. Level of Assistance CGA Surface level Distance/Duration 10' Treatment Focus Core/pelvic stability to minimize lateral hip sway Comments Use of cane with R UE provided more pelvic stability than on the L UE due to weakness of L hip > R. Walk turns Description 10' walk turns Device Used With cane, one both sides, one side at a time. Level of Assistance CGA Surface Level Distance/Duration 6' Treatment Focus Stability with gait. Comments Pt needed much verbal cuing many different times due to pt not following directions. PT-OP-T Assessment and Plan Start: 06/03/20 18:31 Freq: Status: Active Protocol: Document 07/14/20 09:50 LRN (Rec: 07/14/20 11:15 LRN [id number]) Physical Therapy Assessment Rehab Potential Rehabilitation Potential Fair Evaluation Complexity Number of Personal Factors/Comorbidities 3 or More Number of Body Systems Impaired 4 or More Clinical Presentation at Evaluation Evolving Impairments Impairments Activity Tolerance,Pain, Posture,ROM,Soft Tissue Mobility,Strength Goals Four Impairment Lacks appropriate HEP Pattern Maker Goal (LTG) Pt will be independent on a self care HEP. LTG Duration 08/08/20 (07/14/20: Progressing) 3 Impairment LEFS score 48/80 (48-62 score is 20-39% impairment) Intermediate Goal (LTG) Improve pt function per LEFS of 52 or greater (48-62 score is 20-39% impairment). (07/14/20: LEFS score of 51/80 LTG Duration 08/08/20 (07/14/20: Improved, NOT MET GOAL) 2 Impairment decreased Nathan hip strength Short Term Goal (STG) Increase Nathan hip strength 1/2 grade with focus on hip AB ( Initial strength: Flex is 3/5 nathan, Ext is 3+/5 R, 3-/5 L; AB is 2-/5 bilateral; AD is 3-/5 R, 3+/5 L; ER is 4/5 R, 3+/5 L; IR s 3+/5 R, 3-/5 L). (07/14/20: Flex 5/5 nathan; Ext 3 +/5, 3-/5 L; AB is 2-/5 bilateral; AD is 3/5 R, 3+/5 L ; ER is 4/ R, 3 +/5 L; IR is 3 -/5 R, 2+/5 L). STG Duration 07/02/20 (07/14/20: No significant change other than flex is 5/5 bi) Pattern Maker Goal (LTG) Increase Nathan hip AB strength to 4/5 to improve functional mobility with gait. LTG Duration 08/08/20 (07/14/20: NOT MET GOAL) 1 Impairment antalgic gait with device Short Term Goal (STG) Patient able to ambulate with minimal limp on level surface with 1-2 canes or walking sticks. (07/03/20: Pt ambs with 2 SPC with minimal hip shift on WBing). STG Duration 07/02/20 (07/03/20: MET GOAL) Intermediate Goal (LTG) Patient able to ambulate safely with a cane on level surface outside the home. LTG Duration 08/08/20 (07/14/20: Improved, NOT MET GOAL). Progress Towards Goals Progress Comments Hip flex improved bilaterally form 3 to 5/5. R Hip AD from 3- to 3/5. Her strength appears less with hip IR bilaterally. Her gait mechanics has improved with less hip sway with cane on the R side. Still quite excessive when held on the L side. Assessment Summary Assessment Pt has improved in hip flex strength and R hip AD, otherwise no notable improvement in hip strength. He gait mechanics though has improved, with greater control of her pelvic sway with a cane held on the R side. With use of a walker she has good gait mechanics. Pt will need a review of her HEP at her next visit before DC to HEP. Physical Therapy Plan Frequency and Duration Frequency of Treatment 2x/Week Plan of Care Start Date 06/06/20 Plan of Care End Date 08/08/20 Next Visit Focus/Plan Next Note Type Treatment Note Next Visit Plan Review HEP: hip AB and core strengthening, Add hip ER & ext strengthening (L>R) and issue HEP. Standing ex's for Ext.
--- NOTE | 2020-07-17 13:12 | PT.OTN ---
Current Diagnoses Trochanteric bursitis, right hip (07/17/20) Trochanteric bursitis, left hip (07/17/20) Iliotibial band syndrome, left leg (07/17/20) Physical Therapy Treatment Note PT-OP-A Visit Information Start: 06/03/20 18:31 Freq: Status: Active Protocol: Document 07/17/20 09:50 LRN (Rec: 07/17/20 10:36 LRN [id number]) Out-Patient Physical Therapy Visit Information Visit Information Visit Type Progress Note Visit Start Time 09:50 Visit Stop Time 10:34 Total Visit Minutes 44 Visit Number 11 Evaluation Information Evaluation Date 06/06/20 Precautions Precautions Diabetes II Osteopenia Nathan TKA Bruises easily Hx of RBBB PT-OP-B Current Condition Start: 06/03/20 18:31 Freq: Status: Active Protocol: Document 06/06/20 12:47 LRN (Rec: 06/06/20 13:38 LRN [id number]) Current Condition History of Current Condition Onset Date 10/2019 Current Complaints Nathan hips wobble when walking when not using a walker. History of Current Condition The pt is very familiar to me. She was being seen earily this year for similar diagnosis' prior to the onset of the COVID 19 Pandemic. See developmental history below. Pt is now being referred for bilateral Trochanteric Bursitis and left IT band tendonitis. Pt reports initial onset of bilateral hip pain that started as her knee rehab was ending in Oct. She states her knees are good now. Her problem is her hips. She states they want to wobble . They go from side to side and it is starting to bother her back. Future Testing and Treatments Planned None Developmental History Developmental History Medical Records indicate pt had 4 months of PT after a L knee surgery towards the end of 2018. She had reported trouble walking for over a year. She then had therapy for L trochanteric bursitis of the L hip and IT band syndrome. She had a cortisone injection in the L hip 12/03/19 with pain relief. She also had occasional R hip pain. She was in L hip rehab from 01/01/20 to 02/14/20 with her rehabilitation interrupted due to COVID 19 pandemic. Pt return today for bilateral Trochanteric Bursitis and left IT band tendonitis. Treatment Goals Patient/Caregiver Goals Pt goal is to be able to walk with less hip sway and with a cane. Prior Functional Status Baseline Function- ADL's Independent Baseline Function- Mobility Independent Baseline Function- Gait Walks w/cane & FWW Baseline Function- Recreation/Hobbies Pool ex 3x/week, last time exercised was in 2018 Baseline Function- Other Stairs: Goes backwards descending, ascending 1 step at time. Uses both hands on 1 rail. Current Functional Impairments (Reported) Functional Limitations- ADL's Walking with wobbly hips causing back pain. Functional Limitations- Mobility/Gait Walks with FWW. Functional Limitations- Other 14 stairs going down to basement and 6 stairs going up to outside. Railing on boths sides. Personal Factors Other Personal Factors That May Effect Spouse the pt feels is of Therapy/Recovery declining health Controlled HBP Diabetes II Osteopenia L TKA - 12 yrs ago, R TKA - . Hypothyroid, hx of RBBB PT-OP-C Subjective Start: 06/03/20 18:31 Freq: Status: Active Protocol: Document 07/17/20 09:50 LRN (Rec: 07/17/20 10:36 LRN [id number]) OP-PT Subjective Patient Comments Patient Comments Pt states she may be putting 30% WBing into her arms with use of walker during gait. States she continues to walk daily. PT-OP-E Functional Tests Start: 06/03/20 18:31 Freq: Status: Active Protocol: Document 06/09/20 14:12 SP (Rec: 06/09/20 14:15 SP [id number]) Functional Tests Timed Up and Go (TUG) Score 17.60 sec Comments at risk for falls PT-OP-G Mobility & Gait Start: 06/03/20 18:31 Freq: Status: Active Protocol: Document 06/06/20 12:47 LRN (Rec: 06/06/20 17:10 LRN [id number]) OP Mobility Evaluation Bed Mobility Supine to and from Sit Independent Transfers Sit to Stand Independent OP Gait Assessment Gait Gait Assistance Required: Independent Able to Maintain Weight Bearing Status Yes During Gait Assistive Devices Assistive Device Front Wheeled Walker Gait Deviations General Gait Pattern Flexed Trunk,Narrow Based Gait Factors Limiting Gait Function Factors Limiting Gait Function Decreased Strength,Pain Comments Gait Comments Pt's hips show excessive pelvic lateral shift when weight bearing. Stair Climbing Evaluation Evaluation Level of Assist On Stairs Independent Technique/Endurance Stair Climbing Technique Step to Step Comments Stair Climbing Comments Pt reports her gait pattern has not changed since her last rehab program 01/01/20-02/14. She ambulates up stairs step to step while holding onto one railing. She descends stair by holding onto one railing and going backwards. PT-OP-J Posture/Palpation/Skin Start: 06/03/20 18:31 Freq: Status: Active Protocol: Document 06/06/20 12:47 LRN (Rec: 06/06/20 13:38 LRN [id number]) Posture Evaluation Position Standing Head/C-Spine Posture Forward Head L-Spine Posture Increased Lordosis Pelvis Posture Anteriorly Tilted Weight Distribution Balanced Comments Posture Comments Flexed at hips 15 deg's Palpation Assessment Location R hip Palpation Location Superior to Greater trochanter L hip Palpation Location TFL muscle belly, Superior to Greater trochanter Palpation Findings Tenderness PT-OP-K Range of Motion Start: 06/03/20 18:31 Freq: Status: Active Protocol: Document 06/06/20 12:47 LRN (Rec: 06/06/20 13:38 LRN [id number]) Hip Goniometric Range of Motion Hip Right Passive Testing Position Supine except ext in prone Straight Leg Raise 60 Extension 5 Abduction 25 Internal Rotation 45 External Rotation 60 Left Passive Testing Position Supine except ext in prone Straight Leg Raise 80 Extension 3 Abduction 32 Internal Rotation 60 External Rotation 60 PT-OP-M Strength Start: 06/03/20 18:31 Freq: Status: Active Protocol: Document 07/14/20 09:50 LRN (Rec: 07/14/20 11:15 LRN [id number]) Hip Strength Hip Manual Muscle Testing Right Flexion (L2) 5 Normal Extension (S1) 3 Fair Abduction 2- Poor- Adduction 3- Fair- External Rotation 4 Good Internal Rotation 3+ Fair+ Left Flexion (L2) 5 Normal Extension (S1) 3 Fair Abduction 2- Poor- Adduction 4 Good External Rotation 3+ Fair+ Internal Rotation 3- Fair- PT-OP-Q Treatments Start: 06/03/20 18:31 Freq: Status: Active Protocol: Document 07/17/20 09:50 LRN (Rec: 07/17/20 10:36 LRN [id number]) Therapeutic Exercises Standing Exercises Trunk Flex Standing Exercise Name Trunk Flex Resistance L3 T Band Reps/Minutes 15 x 3 Comments Phys cuing and stabilizing needed to keep hip flex out of ex. Trunk rot Standing Exercise Name Trunk rot Side bilateral Resistance Lev 3 T-Band, single band Reps/Minutes 15 x 3 Comments v. cuing needed repeatedly for trunk rot vs arms pulling. Hip Ext Standing Exercise Name Hip Ext Side bilateral Reps/Minutes 10 x 3 Comments Physical review cuing need to perform ex properly. Hip AB Standing Exercise Name Hip AB Side bilateral Reps/Minutes 10 x 3 Gait Training Gait Activity Gait with Assist Device Comments Using a floor scale estimated weightbearing in the LE's during gait is 86% (160# of 180#). Self-Care/Home Management Treatment Education Patient Education Home Exercise Program Other Education I/S pt in Home ex: Standing hip AB and monitoring of WBing through LE's or through UE's, working towards improving gait with SPC. Handouts produced but held issuing due to not being able to review all ex's. PT-OP-T Assessment and Plan Start: 06/03/20 18:31 Freq: Status: Active Protocol: Document 07/17/20 09:50 LRN (Rec: 07/17/20 10:36 LRN [id number]) Physical Therapy Assessment Rehab Potential Rehabilitation Potential Fair Evaluation Complexity Number of Personal Factors/Comorbidities 3 or More Number of Body Systems Impaired 4 or More Clinical Presentation at Evaluation Evolving Impairments Impairments Activity Tolerance,Pain, Posture,ROM,Soft Tissue Mobility,Strength Goals Four Impairment Lacks appropriate HEP Family Resource Coordinator Goal (LTG) Pt will be independent on a self care HEP. LTG Duration 08/30/20 (07/17/20: Progressing) 3 Impairment LEFS score 48/80 (48-62 score is 20-39% impairment) Family Resource Coordinator Goal (LTG) Improve pt function per LEFS of 52 or greater (48-62 score is 20-39% impairment). (07/14/20: LEFS score of 51/80 LTG Duration 08/30/20 (07/14/20: Improved, NOT MET GOAL) 2 Impairment decreased Nathan hip strength Short Term Goal (STG) Increase Nathan hip strength 1/2 grade with focus on hip AB ( Initial strength: Flex is 3/5 nathan, Ext is 3+/5 R, 3-/5 L; AB is 2-/5 bilateral; AD is 3-/5 R, 3+/5 L; ER is 4/5 R, 3+/5 L; IR s 3+/5 R, 3-/5 L). (07/14/20: Flex 5/5 nathan; Ext 3 +/5, 3-/5 L; AB is 2-/5 bilateral; AD is 3/5 R, 3+/5 L ; ER is 4/ R, 3 +/5 L; IR is 3 -/5 R, 2+/5 L). STG Duration 08/08/20 (07/14/20: No significant change other than flex is 5/5 bi) Family Resource Coordinator Goal (LTG) Increase Nathan hip AB strength to 4/5 to improve functional mobility with gait. LTG Duration 08/30/20 (07/14/20: NOT MET GOAL) 1 Impairment antalgic gait with device Short Term Goal (STG) Patient able to ambulate with minimal limp on level surface with 1-2 canes or walking sticks. (07/03/20: Pt ambs with 2 SPC with minimal hip shift on WBing). STG Duration 07/02/20 (07/03/20: MET GOAL) Family Resource Coordinator Goal (LTG) Patient able to ambulate safely with a cane on level surface outside the home. LTG Duration 08/30/20 (07/14/20: Improved, NOT MET GOAL). Progress Towards Goals Progress Comments As identified last treatment session: Hip flex improved bilaterally from 3 to 5/5. R Hip AD from 3- to 3/5. Her strength appears less with hip IR bilaterally. Her gait mechanics has improved with less hip sway with cane on the R side. Still quite excessive when held on the L side. Today pt demonstrated more awareness of performing ex's with improved form and understanding of reducing weightbearing through the UE's with control of pelvis to keep in neutral. Assessment Summary Assessment Today she states she is putting ~60% weightbearing through her legs (measured by floor scale during static standing to be 86%). Per previous PT session, pt had improved in hip flex strength and R hip AD, otherwise no notable improvement in hip strength. Her gait mechanics though had improved, with greater control of her pelvic sway with a cane held on the R side. With use of a walker she had good gait mechanics. The pt requested further PT and per improvements shown the pt has good potential to further improve in her gait mechanics and stability with gait as her hip and core strength improves. I recommend continuation of physical therapy for at least 4 more weeks to work towards improved hip strength, gait mechanics, and goals as stated above. Physical Therapy Plan Frequency and Duration Frequency of Treatment 2x/Week Plan of Care Start Date 06/06/20 Plan of Care End Date 08/30/20 Therapeutic Interventions Therapeutic Interventions Balance Training,Gait Training ,Home Exercise Program,Manual Therapy,Neuromuscular Re- education,Patient/Caregiver Education,Self-Care/Home Management,Soft Tissue Mobilization,Taping, Therapeutic Exercises Modalities Hot Packs,Iontophoresis, Ultrasound Other Therapeutic Interventions Iontophoresis with 4mg/mL Dexamethasone with Sodium Phosphate. Next Visit Focus/Plan Next Note Type Treatment Note Next Visit Plan Add ex and to HEP: standing hip ext strengthening and hip strengthening with T-Band. If time permits add ex & HEP: sitting hip ER strengthening. Progress hip AB and core strengthening, Gait training with transition to cane.
--- NOTE | 2020-07-17 13:13 | PT.OPPOC ---
Physical, Occupational & Speech Therapy At [facility] Current Diagnoses Trochanteric bursitis, right hip (07/17/20) Trochanteric bursitis, left hip (07/17/20) Iliotibial band syndrome, left leg (07/17/20) Visit Care Team Role Provider Type Juli Harrell Primary Care Provider Non-Staff Specialty: Internal Medicine Address: [address] [place] [address], [id number] Email: Ander Billings MD Attending Provider Physician Referring Provider Specialty: Orthopedic Surgery Address: [address] [place] [address], [id number] Email: [email or web address] Plan Of Care PT-OP-T Assessment and Plan Start: 06/03/20 18:31 Freq: Status: Active Protocol: Document 07/17/20 09:50 LRN (Rec: 07/17/20 10:36 LRN [id number]) Physical Therapy Assessment Rehab Potential Rehabilitation Potential Fair Evaluation Complexity Number of Personal Factors/Comorbidities 3 or More Number of Body Systems Impaired 4 or More Clinical Presentation at Evaluation Evolving Impairments Impairments Activity Tolerance,Pain, Posture,ROM,Soft Tissue Mobility,Strength Goals Four Impairment Lacks appropriate HEP Custodial Goal (LTG) Pt will be independent on a self care HEP. LTG Duration 08/30/20 (07/17/20: Progressing) 3 Impairment LEFS score 48/80 (48-62 score is 20-39% impairment) Rv Repair Technician Goal (LTG) Improve pt function per LEFS of 52 or greater (48-62 score is 20-39% impairment). (07/14/20: LEFS score of 51/80 LTG Duration 08/30/20 (07/14/20: Improved, NOT MET GOAL) 2 Impairment decreased Radha hip strength Short Term Goal (STG) Increase Radha hip strength 1/2 grade with focus on hip AB ( Initial strength: Flex is 3/5 radha, Ext is 3+/5 R, 3-/5 L; AB is 2-/5 bilateral; AD is 3-/5 R, 3+/5 L; ER is 4/5 R, 3+/5 L; IR s 3+/5 R, 3-/5 L). (07/14/20: Flex 5/5 radha; Ext 3 +/5, 3-/5 L; AB is 2-/5 bilateral; AD is 3/5 R, 3+/5 L ; ER is 4/ R, 3 +/5 L; IR is 3 -/5 R, 2+/5 L). STG Duration 08/08/20 (07/14/20: No significant change other than flex is 5/5 bi) Custodial Goal (LTG) Increase Radha hip AB strength to 4/5 to improve functional mobility with gait. LTG Duration 08/30/20 (07/14/20: NOT MET GOAL) 1 Impairment antalgic gait with device Short Term Goal (STG) Patient able to ambulate with minimal limp on level surface with 1-2 canes or walking sticks. (07/03/20: Pt ambs with 2 SPC with minimal hip shift on WBing). STG Duration 07/02/20 (07/03/20: MET GOAL) Custodial Goal (LTG) Patient able to ambulate safely with a cane on level surface outside the home. LTG Duration 08/30/20 (07/14/20: Improved, NOT MET GOAL). Progress Towards Goals Progress Comments As identified last treatment session: Hip flex improved bilaterally from 3 to 5/5. R Hip AD from 3- to 3/5. Her strength appears less with hip IR bilaterally. Her gait mechanics has improved with less hip sway with cane on the R side. Still quite excessive when held on the L side. Today pt demonstrated more awareness of performing ex's with improved form and understanding of reducing weightbearing through the UE's with control of pelvis to keep in neutral. Assessment Summary Assessment Today she states she is putting ~60% weightbearing through her legs (measured by floor scale during static standing to be 86%). Per previous PT session, pt had improved in hip flex strength and R hip AD, otherwise no notable improvement in hip strength. Her gait mechanics though had improved, with greater control of her pelvic sway with a cane held on the R side. With use of a walker she had good gait mechanics. The pt requested further PT and per improvements shown the pt has good potential to further improve in her gait mechanics and stability with gait as her hip and core strength improves. I recommend continuation of physical therapy for at least 4 more weeks to work towards improved hip strength, gait mechanics, and goals as stated above. Physical Therapy Plan Frequency and Duration Frequency of Treatment 2x/Week Plan of Care Start Date 06/06/20 Plan of Care End Date 08/30/20 Therapeutic Interventions Therapeutic Interventions Balance Training,Gait Training ,Home Exercise Program,Manual Therapy,Neuromuscular Re- education,Patient/Caregiver Education,Self-Care/Home Management,Soft Tissue Mobilization,Taping, Therapeutic Exercises Modalities Hot Packs,Iontophoresis, Ultrasound Other Therapeutic Interventions Iontophoresis with 4mg/mL Dexamethasone with Sodium Phosphate. Next Visit Focus/Plan Next Note Type Treatment Note Next Visit Plan Add ex and to HEP: standing hip ext strengthening and hip strengthening with T-Band. If time permits add ex & HEP: sitting hip ER strengthening. Progress hip AB and core strengthening, Gait training with transition to cane. Plan of Care Dates Plan of Care Start Date 06/06/20 Plan of Care End Date 08/30/20 Electronically Signed by: Constanza Harper, PT 07/17/20 [id number] Please Sign and Return: I have reviewed this Plan of Care and certify that the skilled therapy services above are required to meet the patient?s needs. Physician Signature Date Printed Name and Credentials Clinical Instructor Signature Printed Name and Credentials
--- NOTE | 2020-07-22 13:04 | PT.OTN ---
Current Diagnoses Trochanteric bursitis, right hip (07/22/20) Trochanteric bursitis, left hip (07/22/20) Iliotibial band syndrome, left leg (07/22/20) Physical Therapy Treatment Note PT-OP-A Visit Information Start: 06/03/20 18:31 Freq: Status: Active Protocol: Document 07/22/20 09:06 LRN (Rec: 07/22/20 09:51 LRN [id number]) Out-Patient Physical Therapy Visit Information Visit Information Visit Type Treatment Note Visit Note 12/07 after PN Visit Start Time 09:06 Visit Stop Time 09:49 Total Visit Minutes 43 Visit Number 12 Evaluation Information Evaluation Date 06/06/20 Precautions Precautions Diabetes II Osteopenia Nathan TKA Bruises easily Hx of RBBB PT-OP-B Current Condition Start: 06/03/20 18:31 Freq: Status: Active Protocol: Document 06/06/20 12:47 LRN (Rec: 06/06/20 13:38 LRN [id number]) Current Condition History of Current Condition Onset Date 10/2019 Current Complaints Nathan hips wobble when walking when not using a walker. History of Current Condition The pt is very familiar to me. She was being seen earily this year for similar diagnosis' prior to the onset of the COVID 19 Pandemic. See developmental history below. Pt is now being referred for bilateral Trochanteric Bursitis and left IT band tendonitis. Pt reports initial onset of bilateral hip pain that started as her knee rehab was ending in Oct. She states her knees are good now. Her problem is her hips. She states they want to wobble . They go from side to side and it is starting to bother her back. Future Testing and Treatments Planned None Developmental History Developmental History Medical Records indicate pt had 4 months of PT after a L knee surgery towards the end of 2018. She had reported trouble walking for over a year. She then had therapy for L trochanteric bursitis of the L hip and IT band syndrome. She had a cortisone injection in the L hip 12/03/19 with pain relief. She also had occasional R hip pain. She was in L hip rehab from 01/01/20 to 02/14/20 with her rehabilitation interrupted due to COVID 19 pandemic. Pt return today for bilateral Trochanteric Bursitis and left IT band tendonitis. Treatment Goals Patient/Caregiver Goals Pt goal is to be able to walk with less hip sway and with a cane. Prior Functional Status Baseline Function- ADL's Independent Baseline Function- Mobility Independent Baseline Function- Gait Walks w/cane & FWW Baseline Function- Recreation/Hobbies Pool ex 3x/week, last time exercised was in 2018 Baseline Function- Other Stairs: Goes backwards descending, ascending 1 step at time. Uses both hands on 1 rail. Current Functional Impairments (Reported) Functional Limitations- ADL's Walking with wobbly hips causing back pain. Functional Limitations- Mobility/Gait Walks with FWW. Functional Limitations- Other 14 stairs going down to basement and 6 stairs going up to outside. Railing on boths sides. Personal Factors Other Personal Factors That May Effect Spouse the pt feels is of Therapy/Recovery declining health Controlled HBP Diabetes II Osteopenia L TKA - 12 yrs ago, R TKA - . Hypothyroid, hx of RBBB PT-OP-C Subjective Start: 06/03/20 18:31 Freq: Status: Active Protocol: Document 07/22/20 09:06 LRN (Rec: 07/22/20 09:51 LRN [id number]) OP-PT Subjective Patient Comments Patient Comments States she is feeling pretty good. States she is very light through her arms with walking PT-OP-E Functional Tests Start: 06/03/20 18:31 Freq: Status: Active Protocol: Document 06/09/20 14:12 SP (Rec: 06/09/20 14:15 SP [id number]) Functional Tests Timed Up and Go (TUG) Score 17.60 sec Comments at risk for falls PT-OP-G Mobility & Gait Start: 06/03/20 18:31 Freq: Status: Active Protocol: Document 06/06/20 12:47 LRN (Rec: 06/06/20 17:10 LRN [id number]) OP Mobility Evaluation Bed Mobility Supine to and from Sit Independent Transfers Sit to Stand Independent OP Gait Assessment Gait Gait Assistance Required: Independent Able to Maintain Weight Bearing Status Yes During Gait Assistive Devices Assistive Device Front Wheeled Walker Gait Deviations General Gait Pattern Flexed Trunk,Narrow Based Gait Factors Limiting Gait Function Factors Limiting Gait Function Decreased Strength,Pain Comments Gait Comments Pt's hips show excessive pelvic lateral shift when weight bearing. Stair Climbing Evaluation Evaluation Level of Assist On Stairs Independent Technique/Endurance Stair Climbing Technique Step to Step Comments Stair Climbing Comments Pt reports her gait pattern has not changed since her last rehab program 01/01/20-02/14. She ambulates up stairs step to step while holding onto one railing. She descends stair by holding onto one railing and going backwards. PT-OP-J Posture/Palpation/Skin Start: 06/03/20 18:31 Freq: Status: Active Protocol: Document 06/06/20 12:47 LRN (Rec: 06/06/20 13:38 LRN [id number]) Posture Evaluation Position Standing Head/C-Spine Posture Forward Head L-Spine Posture Increased Lordosis Pelvis Posture Anteriorly Tilted Weight Distribution Balanced Comments Posture Comments Flexed at hips 15 deg's Palpation Assessment Location R hip Palpation Location Superior to Greater trochanter L hip Palpation Location TFL muscle belly, Superior to Greater trochanter Palpation Findings Tenderness PT-OP-K Range of Motion Start: 06/03/20 18:31 Freq: Status: Active Protocol: Document 06/06/20 12:47 LRN (Rec: 06/06/20 13:38 LRN [id number]) Hip Goniometric Range of Motion Hip Right Passive Testing Position Supine except ext in prone Straight Leg Raise 60 Extension 5 Abduction 25 Internal Rotation 45 External Rotation 60 Left Passive Testing Position Supine except ext in prone Straight Leg Raise 80 Extension 3 Abduction 32 Internal Rotation 60 External Rotation 60 PT-OP-M Strength Start: 06/03/20 18:31 Freq: Status: Active Protocol: Document 07/14/20 09:50 LRN (Rec: 07/14/20 11:15 LRN [id number]) Hip Strength Hip Manual Muscle Testing Right Flexion (L2) 5 Normal Extension (S1) 3 Fair Abduction 2- Poor- Adduction 3- Fair- External Rotation 4 Good Internal Rotation 3+ Fair+ Left Flexion (L2) 5 Normal Extension (S1) 3 Fair Abduction 2- Poor- Adduction 4 Good External Rotation 3+ Fair+ Internal Rotation 3- Fair- PT-OP-Q Treatments Start: 06/03/20 18:31 Freq: Status: Active Protocol: Document 07/22/20 09:06 LRN (Rec: 07/22/20 09:51 LRN [id number]) Therapeutic Exercises Sitting Exercises Hip ER/IR Sitting Exercise Name Active hip IR/ER Side bilateral Reps/Minutes 10x on L Comments Weakness L>R Standing Exercises Trunk rot Standing Exercise Name Trunk rot Side bilateral Resistance Lev 3 T-Band, single band Reps/Minutes 15 x 3 Comments v. cuing needed repeatedly for trunk rot vs arms pulling. Hip Ext Standing Exercise Name Hip Ext Side bilateral Reps/Minutes 10 x 3 Comments Physical review cuing need to perform ex properly. Hip AB Standing Exercise Name Hip AB Side bilateral Reps/Minutes 10 x 3 Gait Training Gait Activity Gait with Assist Device Description Gait w/2 canes and with one on L, then one on R. Device Used 2 canes/GB/Mirror Level of Assistance CGA Surface level Distance/Duration 15' Treatment Focus Core/pelvic stability to minimize lateral hip sway Comments Today, use of cane with L UE provided more pelvic stability than on the R UE. Self-Care/Home Management Treatment Education Patient Education Home Exercise Program Other Education Issued and reviewed HEP: Standing hip ext and sitting ER. Issued HEP: T-Band strengthening for hip Ext & ER PT-OP-T Assessment and Plan Start: 06/03/20 18:31 Freq: Status: Active Protocol: Document 07/22/20 09:06 LRN (Rec: 07/22/20 09:51 LRN [id number]) Physical Therapy Assessment Goals Four Impairment Lacks appropriate HEP Skilled Nursing Goal (LTG) Pt will be independent on a self care HEP. LTG Duration 08/30/20 (07/22/20: Progressing) 3 Impairment LEFS score 48/80 (48-62 score is 20-39% impairment) Skilled Nursing Goal (LTG) Improve pt function per LEFS of 52 or greater (48-62 score is 20-39% impairment). (07/14/20: LEFS score of 51/80 LTG Duration 08/30/20 (07/14/20: Improved, NOT MET GOAL) 2 Impairment decreased Nathan hip strength Short Term Goal (STG) Increase Nathan hip strength 1/2 grade with focus on hip AB ( Initial strength: Flex is 3/5 nathan, Ext is 3+/5 R, 3-/5 L; AB is 2-/5 bilateral; AD is 3-/5 R, 3+/5 L; ER is 4/5 R, 3+/5 L; IR s 3+/5 R, 3-/5 L). (07/14/20: Flex 5/5 nathan; Ext 3 +/5, 3-/5 L; AB is 2-/5 bilateral; AD is 3/5 R, 3+/5 L ; ER is 4/ R, 3 +/5 L; IR is 3 -/5 R, 2+/5 L). STG Duration 08/08/20 (07/14/20: No significant change other than flex is 5/5 bi) Skilled Nursing Goal (LTG) Increase Nathan hip AB strength to 4/5 to improve functional mobility with gait. LTG Duration 08/30/20 (07/14/20: NOT MET GOAL) 1 Impairment antalgic gait with device Short Term Goal (STG) Patient able to ambulate with minimal limp on level surface with 1-2 canes or walking sticks. (07/03/20: Pt ambs with 2 SPC with minimal hip shift on WBing). STG Duration 07/02/20 (07/03/20: MET GOAL) Skilled Nursing Goal (LTG) Patient able to ambulate safely with a cane on level surface outside the home. LTG Duration 08/30/20 (07/14/20: Improved, NOT MET GOAL). Progress Towards Goals Progress Towards Goals Progressing Toward Goals Assessment Summary Assessment Excessive R hip sway today with gait. Pt needs redirection to strengthening ex's during therapy. Her gait with 2 canes appear to be improving. Pt may have QL weakness causing pelvic drop on stance phase of standing leg. Physical Therapy Plan Frequency and Duration Frequency of Treatment 2x/Week Plan of Care Start Date 06/06/20 Plan of Care End Date 08/30/20 Next Visit Focus/Plan Next Note Type Treatment Note Next Visit Plan Add HEP: standing hip strengthening with T-Band. Review added ex & HEP: sitting hip ER strengthening/ROM and standing hip ext. Progress hip AB and core strengthening, Cont gait training with transition to cane.
--- NOTE | 2020-07-25 16:07 | PT.OTN ---
Current Diagnoses Trochanteric bursitis, right hip (07/25/20) Trochanteric bursitis, left hip (07/25/20) Iliotibial band syndrome, left leg (07/25/20) Physical Therapy Treatment Note PT-OP-A Visit Information Start: 06/03/20 18:31 Freq: Status: Active Protocol: Document 07/25/20 14:22 LRN (Rec: 07/25/20 15:02 LRN [id number]) Out-Patient Physical Therapy Visit Information Visit Information Visit Type Treatment Note Visit Start Time 14:22 Visit Stop Time 15:00 Total Visit Minutes 38 Visit Number 13 Evaluation Information Evaluation Date 06/06/20 Precautions Precautions Diabetes II Osteopenia Nathan TKA Bruises easily Hx of RBBB PT-OP-B Current Condition Start: 06/03/20 18:31 Freq: Status: Active Protocol: Document 06/06/20 12:47 LRN (Rec: 06/06/20 13:38 LRN [id number]) Current Condition History of Current Condition Onset Date 10/2019 Current Complaints Nathan hips wobble when walking when not using a walker. History of Current Condition The pt is very familiar to me. She was being seen earily this year for similar diagnosis' prior to the onset of the COVID 19 Pandemic. See developmental history below. Pt is now being referred for bilateral Trochanteric Bursitis and left IT band tendonitis. Pt reports initial onset of bilateral hip pain that started as her knee rehab was ending in Oct. She states her knees are good now. Her problem is her hips. She states they want to wobble . They go from side to side and it is starting to bother her back. Future Testing and Treatments Planned None Developmental History Developmental History Medical Records indicate pt had 4 months of PT after a L knee surgery towards the end of 2018. She had reported trouble walking for over a year. She then had therapy for L trochanteric bursitis of the L hip and IT band syndrome. She had a cortisone injection in the L hip 12/03/19 with pain relief. She also had occasional R hip pain. She was in L hip rehab from 01/01/20 to 02/14/20 with her rehabilitation interrupted due to COVID 19 pandemic. Pt return today for bilateral Trochanteric Bursitis and left IT band tendonitis. Treatment Goals Patient/Caregiver Goals Pt goal is to be able to walk with less hip sway and with a cane. Prior Functional Status Baseline Function- ADL's Independent Baseline Function- Mobility Independent Baseline Function- Gait Walks w/cane & FWW Baseline Function- Recreation/Hobbies Pool ex 3x/week, last time exercised was in 2018 Baseline Function- Other Stairs: Goes backwards descending, ascending 1 step at time. Uses both hands on 1 rail. Current Functional Impairments (Reported) Functional Limitations- ADL's Walking with wobbly hips causing back pain. Functional Limitations- Mobility/Gait Walks with FWW. Functional Limitations- Other 14 stairs going down to basement and 6 stairs going up to outside. Railing on boths sides. Personal Factors Other Personal Factors That May Effect Spouse the pt feels is of Therapy/Recovery declining health Controlled HBP Diabetes II Osteopenia L TKA - 12 yrs ago, R TKA - . Hypothyroid, hx of RBBB PT-OP-C Subjective Start: 06/03/20 18:31 Freq: Status: Active Protocol: Document 07/25/20 14:22 LRN (Rec: 07/25/20 15:02 LRN [id number]) OP-PT Subjective Patient Comments Patient Comments Back is a little sore. PT-OP-E Functional Tests Start: 06/03/20 18:31 Freq: Status: Active Protocol: Document 06/09/20 14:12 SP (Rec: 06/09/20 14:15 SP [id number]) Functional Tests Timed Up and Go (TUG) Score 17.60 sec Comments at risk for falls PT-OP-G Mobility & Gait Start: 06/03/20 18:31 Freq: Status: Active Protocol: Document 06/06/20 12:47 LRN (Rec: 06/06/20 17:10 LRN [id number]) OP Mobility Evaluation Bed Mobility Supine to and from Sit Independent Transfers Sit to Stand Independent OP Gait Assessment Gait Gait Assistance Required: Independent Able to Maintain Weight Bearing Status Yes During Gait Assistive Devices Assistive Device Front Wheeled Walker Gait Deviations General Gait Pattern Flexed Trunk,Narrow Based Gait Factors Limiting Gait Function Factors Limiting Gait Function Decreased Strength,Pain Comments Gait Comments Pt's hips show excessive pelvic lateral shift when weight bearing. Stair Climbing Evaluation Evaluation Level of Assist On Stairs Independent Technique/Endurance Stair Climbing Technique Step to Step Comments Stair Climbing Comments Pt reports her gait pattern has not changed since her last rehab program 01/01/20-02/14. She ambulates up stairs step to step while holding onto one railing. She descends stair by holding onto one railing and going backwards. PT-OP-J Posture/Palpation/Skin Start: 06/03/20 18:31 Freq: Status: Active Protocol: Document 06/06/20 12:47 LRN (Rec: 06/06/20 13:38 LRN [id number]) Posture Evaluation Position Standing Head/C-Spine Posture Forward Head L-Spine Posture Increased Lordosis Pelvis Posture Anteriorly Tilted Weight Distribution Balanced Comments Posture Comments Flexed at hips 15 deg's Palpation Assessment Location R hip Palpation Location Superior to Greater trochanter L hip Palpation Location TFL muscle belly, Superior to Greater trochanter Palpation Findings Tenderness PT-OP-K Range of Motion Start: 06/03/20 18:31 Freq: Status: Active Protocol: Document 06/06/20 12:47 LRN (Rec: 06/06/20 13:38 LRN [id number]) Hip Goniometric Range of Motion Hip Right Passive Testing Position Supine except ext in prone Straight Leg Raise 60 Extension 5 Abduction 25 Internal Rotation 45 External Rotation 60 Left Passive Testing Position Supine except ext in prone Straight Leg Raise 80 Extension 3 Abduction 32 Internal Rotation 60 External Rotation 60 PT-OP-M Strength Start: 06/03/20 18:31 Freq: Status: Active Protocol: Document 07/14/20 09:50 LRN (Rec: 07/14/20 11:15 LRN [id number]) Hip Strength Hip Manual Muscle Testing Right Flexion (L2) 5 Normal Extension (S1) 3 Fair Abduction 2- Poor- Adduction 3- Fair- External Rotation 4 Good Internal Rotation 3+ Fair+ Left Flexion (L2) 5 Normal Extension (S1) 3 Fair Abduction 2- Poor- Adduction 4 Good External Rotation 3+ Fair+ Internal Rotation 3- Fair- PT-OP-Q Treatments Start: 06/03/20 18:31 Freq: Status: Active Protocol: Document 07/25/20 14:22 LRN (Rec: 07/25/20 15:02 LRN [id number]) Therapeutic Exercises Sitting Exercises hip abd band Sitting Exercise Name Active hip IR/ER Side bilateral Resistance Lev 1 TB Reps/Minutes 10x3 Standing Exercises PNF patterns for core stab Standing Exercise Name PNF for core stab Side bilateral Resistance L3v 2 T-Band Reps/Minutes 15x 2 Comments Movement training, pt needed phys cuing during ex Trunk Flex Standing Exercise Name Trunk Flex Resistance L3 T Band Reps/Minutes 15 x 3 Comments Phys cuing and stabilizing needed to keep hip flex out of ex. Trunk rot Standing Exercise Name Trunk rot Side bilateral Resistance Lev 3 T-Band, single band Reps/Minutes 15 x 3 Comments v. cuing needed repeatedly for trunk rot vs arms pulling. Hip Ext Standing Exercise Name Hip Ext Side bilateral Resistance Lev 1 TB Reps/Minutes 8x Comments Physical & v cuing need to perform ex properly. Hip AB Standing Exercise Name Hip AB Side bilateral Resistance Lev 1 TB Reps/Minutes 8x Comments Pt found L LE movement harder, pt needed v cuing to hold ex 2-3 secs ea rep Gait Training Gait Activity Gait with Assist Device Description Gait w/2 canes and with one on L, then one on R. Device Used 2 canes/GB/Mirror Level of Assistance CGA Surface level Distance/Duration 10' Treatment Focus Core/pelvic stability to minimize lateral hip sway Comments Today, use of cane with L UE provided more pelvic stability than on the R UE. Self-Care/Home Management Treatment Education Patient Education Home Exercise Program Activities Self-Care/Home Management Activities Added to HEP: Standing hip ext & AB with Lev 1 TBand PT-OP-T Assessment and Plan Start: 06/03/20 18:31 Freq: Status: Active Protocol: Document 07/25/20 14:22 LRN (Rec: 07/25/20 15:02 LRN [id number]) Physical Therapy Assessment Goals Four Impairment Lacks appropriate HEP Director Traffic And Planning Goal (LTG) Pt will be independent on a self care HEP. LTG Duration 08/30/20 (07/25/20: Progressing) 3 Impairment LEFS score 48/80 (48-62 score is 20-39% impairment) Director Traffic And Planning Goal (LTG) Improve pt function per LEFS of 52 or greater (48-62 score is 20-39% impairment). (07/14/20: LEFS score of 51/80 LTG Duration 08/30/20 (07/14/20: Improved, NOT MET GOAL) 2 Impairment decreased Nathan hip strength Short Term Goal (STG) Increase Nathan hip strength 1/2 grade with focus on hip AB ( Initial strength: Flex is 3/5 nathan, Ext is 3+/5 R, 3-/5 L; AB is 2-/5 bilateral; AD is 3-/5 R, 3+/5 L; ER is 4/5 R, 3+/5 L; IR s 3+/5 R, 3-/5 L). (07/14/20: Flex 5/5 nathan; Ext 3 +/5, 3-/5 L; AB is 2-/5 bilateral; AD is 3/5 R, 3+/5 L ; ER is 4/ R, 3 +/5 L; IR is 3 -/5 R, 2+/5 L). STG Duration 08/08/20 (07/14/20: No significant change other than flex is 5/5 bi) Residential Goal (LTG) Increase Nathan hip AB strength to 4/5 to improve functional mobility with gait. LTG Duration 08/30/20 (07/14/20: NOT MET GOAL) 1 Impairment antalgic gait with device Short Term Goal (STG) Patient able to ambulate with minimal limp on level surface with 1-2 canes or walking sticks. (07/03/20: Pt ambs with 2 SPC with minimal hip shift on WBing). STG Duration 07/02/20 (07/03/20: MET GOAL) Director Traffic And Planning Goal (LTG) Patient able to ambulate safely with a cane on level surface outside the home. LTG Duration 08/30/20 (07/14/20: Improved, NOT MET GOAL). Assessment Summary Assessment Today pt is able to amb with single cane on R side better than when on L side due to less L hip sway to the left. Physical Therapy Plan Frequency and Duration Frequency of Treatment 2x/Week Plan of Care Start Date 06/06/20 Plan of Care End Date 08/30/20 Next Visit Focus/Plan Next Note Type Treatment Note Next Visit Plan Add HEP: standing esequiel hip ext in doorway. Review ex: sitting hip ER ROM and T-Band standing hip ext/AB ex. Try adding QL strengthening, might start in supine. Progress hip AB and core strengthening, Cont gait training with transition to cane.
--- NOTE | 2020-08-01 19:29 | PT.OTN ---
Current Diagnoses Trochanteric bursitis, right hip (08/01/20) Trochanteric bursitis, left hip (08/01/20) Iliotibial band syndrome, left leg (08/01/20) Physical Therapy Treatment Note PT-OP-A Visit Information Start: 06/03/20 18:31 Freq: Status: Active Protocol: Document 08/01/20 09:51 LRN (Rec: 08/01/20 10:33 LRN [id number]) Out-Patient Physical Therapy Visit Information Visit Information Visit Type Treatment Note Visit Start Time 09:51 Visit Stop Time 10:33 Total Visit Minutes 42 Visit Number 14 Evaluation Information Evaluation Date 06/06/20 Precautions Precautions Diabetes II Osteopenia Nathan TKA Bruises easily Hx of RBBB PT-OP-B Current Condition Start: 06/03/20 18:31 Freq: Status: Active Protocol: Document 06/06/20 12:47 LRN (Rec: 06/06/20 13:38 LRN [id number]) Current Condition History of Current Condition Onset Date 10/2019 Current Complaints Nathan hips wobble when walking when not using a walker. History of Current Condition The pt is very familiar to me. She was being seen earily this year for similar diagnosis' prior to the onset of the COVID 19 Pandemic. See developmental history below. Pt is now being referred for bilateral Trochanteric Bursitis and left IT band tendonitis. Pt reports initial onset of bilateral hip pain that started as her knee rehab was ending in Oct. She states her knees are good now. Her problem is her hips. She states they want to wobble . They go from side to side and it is starting to bother her back. Future Testing and Treatments Planned None Developmental History Developmental History Medical Records indicate pt had 4 months of PT after a L knee surgery towards the end of 2018. She had reported trouble walking for over a year. She then had therapy for L trochanteric bursitis of the L hip and IT band syndrome. She had a cortisone injection in the L hip 12/03/19 with pain relief. She also had occasional R hip pain. She was in L hip rehab from 01/01/20 to 02/14/20 with her rehabilitation interrupted due to COVID 19 pandemic. Pt return today for bilateral Trochanteric Bursitis and left IT band tendonitis. Treatment Goals Patient/Caregiver Goals Pt goal is to be able to walk with less hip sway and with a cane. Prior Functional Status Baseline Function- ADL's Independent Baseline Function- Mobility Independent Baseline Function- Gait Walks w/cane & FWW Baseline Function- Recreation/Hobbies Pool ex 3x/week, last time exercised was in 2018 Baseline Function- Other Stairs: Goes backwards descending, ascending 1 step at time. Uses both hands on 1 rail. Current Functional Impairments (Reported) Functional Limitations- ADL's Walking with wobbly hips causing back pain. Functional Limitations- Mobility/Gait Walks with FWW. Functional Limitations- Other 14 stairs going down to basement and 6 stairs going up to outside. Railing on boths sides. Personal Factors Other Personal Factors That May Effect Spouse the pt feels is of Therapy/Recovery declining health Controlled HBP Diabetes II Osteopenia L TKA - 12 yrs ago, R TKA - . Hypothyroid, hx of RBBB PT-OP-C Subjective Start: 06/03/20 18:31 Freq: Status: Active Protocol: Document 08/01/20 09:51 LRN (Rec: 08/01/20 10:33 LRN [id number]) OP-PT Subjective Patient Comments Patient Comments Walking daily. Low back has been bothering her. PT-OP-E Functional Tests Start: 06/03/20 18:31 Freq: Status: Active Protocol: Document 06/09/20 14:12 SP (Rec: 06/09/20 14:15 SP [id number]) Functional Tests Timed Up and Go (TUG) Score 17.60 sec Comments at risk for falls PT-OP-G Mobility & Gait Start: 06/03/20 18:31 Freq: Status: Active Protocol: Document 06/06/20 12:47 LRN (Rec: 06/06/20 17:10 LRN [id number]) OP Mobility Evaluation Bed Mobility Supine to and from Sit Independent Transfers Sit to Stand Independent OP Gait Assessment Gait Gait Assistance Required: Independent Able to Maintain Weight Bearing Status Yes During Gait Assistive Devices Assistive Device Front Wheeled Walker Gait Deviations General Gait Pattern Flexed Trunk,Narrow Based Gait Factors Limiting Gait Function Factors Limiting Gait Function Decreased Strength,Pain Comments Gait Comments Pt's hips show excessive pelvic lateral shift when weight bearing. Stair Climbing Evaluation Evaluation Level of Assist On Stairs Independent Technique/Endurance Stair Climbing Technique Step to Step Comments Stair Climbing Comments Pt reports her gait pattern has not changed since her last rehab program 01/01/20-02/14. She ambulates up stairs step to step while holding onto one railing. She descends stair by holding onto one railing and going backwards. PT-OP-J Posture/Palpation/Skin Start: 06/03/20 18:31 Freq: Status: Active Protocol: Document 06/06/20 12:47 LRN (Rec: 06/06/20 13:38 LRN [id number]) Posture Evaluation Position Standing Head/C-Spine Posture Forward Head L-Spine Posture Increased Lordosis Pelvis Posture Anteriorly Tilted Weight Distribution Balanced Comments Posture Comments Flexed at hips 15 deg's Palpation Assessment Location R hip Palpation Location Superior to Greater trochanter L hip Palpation Location TFL muscle belly, Superior to Greater trochanter Palpation Findings Tenderness PT-OP-K Range of Motion Start: 06/03/20 18:31 Freq: Status: Active Protocol: Document 06/06/20 12:47 LRN (Rec: 06/06/20 13:38 LRN [id number]) Hip Goniometric Range of Motion Hip Right Passive Testing Position Supine except ext in prone Straight Leg Raise 60 Extension 5 Abduction 25 Internal Rotation 45 External Rotation 60 Left Passive Testing Position Supine except ext in prone Straight Leg Raise 80 Extension 3 Abduction 32 Internal Rotation 60 External Rotation 60 PT-OP-M Strength Start: 06/03/20 18:31 Freq: Status: Active Protocol: Document 07/14/20 09:50 LRN (Rec: 07/14/20 11:15 LRN [id number]) Hip Strength Hip Manual Muscle Testing Right Flexion (L2) 5 Normal Extension (S1) 3 Fair Abduction 2- Poor- Adduction 3- Fair- External Rotation 4 Good Internal Rotation 3+ Fair+ Left Flexion (L2) 5 Normal Extension (S1) 3 Fair Abduction 2- Poor- Adduction 4 Good External Rotation 3+ Fair+ Internal Rotation 3- Fair- PT-OP-Q Treatments Start: 06/03/20 18:31 Freq: Status: Active Protocol: Document 08/01/20 09:51 LRN (Rec: 08/01/20 10:33 LRN [id number]) Therapeutic Exercises Standing Exercises Doorway isometric hip Ext Standing Exercise Name Megan hip ext Side bilateral Reps/Minutes 8' Comments Much extra time for proper positioning to start and during ex PNF patterns for core stab Standing Exercise Name PNF for core stab Side bilateral Resistance L3v 2 T-Band Reps/Minutes 15x 2 Comments Movement training, pt needed phys cuing during ex Trunk Flex Standing Exercise Name Trunk Flex Resistance L3 T Band Reps/Minutes 15 x 3 Comments Phys cuing and stabilizing needed to keep hip flex out of ex. Trunk rot Standing Exercise Name Trunk rot Side bilateral Resistance Lev 3 T-Band, single band Reps/Minutes 15 x 3 Comments v. cuing needed repeatedly for trunk rot vs arms pulling. Hip Ext Standing Exercise Name Hip Ext Side bilateral Resistance Lev 1 TB Reps/Minutes 4' Comments Much Physical & v cuing need to perform ex properly. Hip AB Standing Exercise Name Hip AB Side bilateral Resistance Lev 1 TB Reps/Minutes 4' Comments R leg moves easier, Much P & V cuing needed to keep L leg straight PT-OP-T Assessment and Plan Start: 06/03/20 18:31 Freq: Status: Active Protocol: Document 08/01/20 09:51 LRN (Rec: 08/01/20 10:33 LRN [id number]) Physical Therapy Assessment Goals Four Impairment Lacks appropriate HEP Sandblaster Glass Goal (LTG) Pt will be independent on a self care HEP. LTG Duration 08/30/20 (07/25/20: Progressing) 3 Impairment LEFS score 48/80 (48-62 score is 20-39% impairment) Sandblaster Glass Goal (LTG) Improve pt function per LEFS of 52 or greater (48-62 score is 20-39% impairment). (07/14/20: LEFS score of 51/80 LTG Duration 08/30/20 (07/14/20: Improved, NOT MET GOAL) 2 Impairment decreased Nathan hip strength Short Term Goal (STG) Increase Nathan hip strength 1/2 grade with focus on hip AB ( Initial strength: Flex is 3/5 nathan, Ext is 3+/5 R, 3-/5 L; AB is 2-/5 bilateral; AD is 3-/5 R, 3+/5 L; ER is 4/5 R, 3+/5 L; IR s 3+/5 R, 3-/5 L). (07/14/20: Flex 5/5 nathan; Ext 3 +/5, 3-/5 L; AB is 2-/5 bilateral; AD is 3/5 R, 3+/5 L ; ER is 4/ R, 3 +/5 L; IR is 3 -/5 R, 2+/5 L). STG Duration 08/08/20 (07/14/20: No significant change other than flex is 5/5 bi) Sandblaster Glass Goal (LTG) Increase Nathan hip AB strength to 4/5 to improve functional mobility with gait. LTG Duration 08/30/20 (07/14/20: NOT MET GOAL) 1 Impairment antalgic gait with device Short Term Goal (STG) Patient able to ambulate with minimal limp on level surface with 1-2 canes or walking sticks. (07/03/20: Pt ambs with 2 SPC with minimal hip shift on WBing). STG Duration 07/02/20 (07/03/20: MET GOAL) Sandblaster Glass Goal (LTG) Patient able to ambulate safely with a cane on level surface outside the home. LTG Duration 08/30/20 (07/14/20: Improved, NOT MET GOAL). Progress Towards Goals Progress Towards Goals Slow Progress due to Medical Issues Progress Comments Back pain today. Assessment Summary Assessment Pt has difficulty with standing megan hip ext, possibly due to habitual forward flexed posturing. She has difficulty with holding her L leg straight during hip ex's due to weakness of TFL and possibly due to back pain. Physical Therapy Plan Frequency and Duration Frequency of Treatment 2x/Week Plan of Care Start Date 06/06/20 Plan of Care End Date 08/30/20 Next Visit Focus/Plan Next Note Type Treatment Note Next Visit Plan Next visit in ~2 wks due to scheduling difficulties. Review ex: sitting hip ER ROM. Try adding QL strengthening, might start in supine. Progress hip AB and core strengthening, Cont gait training with transition to cane.
--- NOTE | 2020-08-08 13:39 | PT.OTN ---
Current Diagnoses Trochanteric bursitis, right hip (08/08/20) Trochanteric bursitis, left hip (08/08/20) Iliotibial band syndrome, left leg (08/08/20) Physical Therapy Treatment Note PT-OP-A Visit Information Start: 06/03/20 18:31 Freq: Status: Active Protocol: Document 08/08/20 12:52 LRN (Rec: 08/08/20 13:36 LRN [id number]) Out-Patient Physical Therapy Visit Information Visit Information Visit Type Treatment Note Visit Note 3 after PN Visit Start Time 12:52 Visit Stop Time 13:35 Total Visit Minutes 43 Visit Number 15 Evaluation Information Evaluation Date 06/06/20 Precautions Precautions Diabetes II Osteopenia Nathan TKA Bruises easily Hx of RBBB PT-OP-B Current Condition Start: 06/03/20 18:31 Freq: Status: Active Protocol: Document 06/06/20 12:47 LRN (Rec: 06/06/20 13:38 LRN [id number]) Current Condition History of Current Condition Onset Date 10/2019 Current Complaints Nathan hips wobble when walking when not using a walker. History of Current Condition The pt is very familiar to me. She was being seen earily this year for similar diagnosis' prior to the onset of the COVID 19 Pandemic. See developmental history below. Pt is now being referred for bilateral Trochanteric Bursitis and left IT band tendonitis. Pt reports initial onset of bilateral hip pain that started as her knee rehab was ending in Oct. She states her knees are good now. Her problem is her hips. She states they want to wobble . They go from side to side and it is starting to bother her back. Future Testing and Treatments Planned None Developmental History Developmental History Medical Records indicate pt had 4 months of PT after a L knee surgery towards the end of 2018. She had reported trouble walking for over a year. She then had therapy for L trochanteric bursitis of the L hip and IT band syndrome. She had a cortisone injection in the L hip 12/03/19 with pain relief. She also had occasional R hip pain. She was in L hip rehab from 01/01/20 to 02/14/20 with her rehabilitation interrupted due to COVID 19 pandemic. Pt return today for bilateral Trochanteric Bursitis and left IT band tendonitis. Treatment Goals Patient/Caregiver Goals Pt goal is to be able to walk with less hip sway and with a cane. Prior Functional Status Baseline Function- ADL's Independent Baseline Function- Mobility Independent Baseline Function- Gait Walks w/cane & FWW Baseline Function- Recreation/Hobbies Pool ex 3x/week, last time exercised was in 2018 Baseline Function- Other Stairs: Goes backwards descending, ascending 1 step at time. Uses both hands on 1 rail. Current Functional Impairments (Reported) Functional Limitations- ADL's Walking with wobbly hips causing back pain. Functional Limitations- Mobility/Gait Walks with FWW. Functional Limitations- Other 14 stairs going down to basement and 6 stairs going up to outside. Railing on boths sides. Personal Factors Other Personal Factors That May Effect Spouse the pt feels is of Therapy/Recovery declining health Controlled HBP Diabetes II Osteopenia L TKA - 12 yrs ago, R TKA - . Hypothyroid, hx of RBBB PT-OP-C Subjective Start: 06/03/20 18:31 Freq: Status: Active Protocol: Document 08/08/20 12:52 LRN (Rec: 08/08/20 13:36 LRN [id number]) OP-PT Subjective Patient Comments Patient Comments States she is walkig every morning and doing exercises daily. PT-OP-E Functional Tests Start: 06/03/20 18:31 Freq: Status: Active Protocol: Document 06/09/20 14:12 SP (Rec: 06/09/20 14:15 SP [id number]) Functional Tests Timed Up and Go (TUG) Score 17.60 sec Comments at risk for falls PT-OP-G Mobility & Gait Start: 06/03/20 18:31 Freq: Status: Active Protocol: Document 06/06/20 12:47 LRN (Rec: 06/06/20 17:10 LRN [id number]) OP Mobility Evaluation Bed Mobility Supine to and from Sit Independent Transfers Sit to Stand Independent OP Gait Assessment Gait Gait Assistance Required: Independent Able to Maintain Weight Bearing Status Yes During Gait Assistive Devices Assistive Device Front Wheeled Walker Gait Deviations General Gait Pattern Flexed Trunk,Narrow Based Gait Factors Limiting Gait Function Factors Limiting Gait Function Decreased Strength,Pain Comments Gait Comments Pt's hips show excessive pelvic lateral shift when weight bearing. Stair Climbing Evaluation Evaluation Level of Assist On Stairs Independent Technique/Endurance Stair Climbing Technique Step to Step Comments Stair Climbing Comments Pt reports her gait pattern has not changed since her last rehab program 01/01/20-02/14. She ambulates up stairs step to step while holding onto one railing. She descends stair by holding onto one railing and going backwards. PT-OP-J Posture/Palpation/Skin Start: 06/03/20 18:31 Freq: Status: Active Protocol: Document 06/06/20 12:47 LRN (Rec: 06/06/20 13:38 LRN [id number]) Posture Evaluation Position Standing Head/C-Spine Posture Forward Head L-Spine Posture Increased Lordosis Pelvis Posture Anteriorly Tilted Weight Distribution Balanced Comments Posture Comments Flexed at hips 15 deg's Palpation Assessment Location R hip Palpation Location Superior to Greater trochanter L hip Palpation Location TFL muscle belly, Superior to Greater trochanter Palpation Findings Tenderness PT-OP-K Range of Motion Start: 06/03/20 18:31 Freq: Status: Active Protocol: Document 06/06/20 12:47 LRN (Rec: 06/06/20 13:38 LRN [id number]) Hip Goniometric Range of Motion Hip Right Passive Testing Position Supine except ext in prone Straight Leg Raise 60 Extension 5 Abduction 25 Internal Rotation 45 External Rotation 60 Left Passive Testing Position Supine except ext in prone Straight Leg Raise 80 Extension 3 Abduction 32 Internal Rotation 60 External Rotation 60 PT-OP-M Strength Start: 06/03/20 18:31 Freq: Status: Active Protocol: Document 07/14/20 09:50 LRN (Rec: 07/14/20 11:15 LRN [id number]) Hip Strength Hip Manual Muscle Testing Right Flexion (L2) 5 Normal Extension (S1) 3 Fair Abduction 2- Poor- Adduction 3- Fair- External Rotation 4 Good Internal Rotation 3+ Fair+ Left Flexion (L2) 5 Normal Extension (S1) 3 Fair Abduction 2- Poor- Adduction 4 Good External Rotation 3+ Fair+ Internal Rotation 3- Fair- PT-OP-Q Treatments Start: 06/03/20 18:31 Freq: Status: Active Protocol: Document 08/08/20 12:52 LRN (Rec: 08/08/20 13:36 LRN [id number]) Therapeutic Exercises Sitting Exercises Assisted R toe ext Sitting Exercise Name Toes 2, 3 assisted ext f/b active ext Side left Reps/Minutes 10x, 2x Comments Initally no active toe ext, but after assisted ROM pt was able to ext toes hip abd band Sitting Exercise Name Active hip AB/ER Side bilateral Resistance Lev 2 TB Reps/Minutes 15x 2 Standing Exercises PNF patterns for core stab Standing Exercise Name PNF for core stab Side bilateral Resistance L2 & L3v 2 T-Band Reps/Minutes 15x each Comments Movement training, pt needed phys cuing during ex Trunk Flex Standing Exercise Name Trunk Flex Resistance L3 T Band, single band Reps/Minutes 15 x 3 Comments Phys cuing and stabilizing needed to keep hip flex out of ex. Trunk rot Standing Exercise Name Trunk rot Side bilateral Resistance Lev 3 T-Band, single band Reps/Minutes 15 x 3 Comments v. cuing needed repeatedly for trunk rot vs arms pulling. Hip Ext Standing Exercise Name Hip Ext Side bilateral Resistance Lev 1 TB Reps/Minutes 4' Comments Much Physical & v cuing need to perform ex properly. Hip AB Standing Exercise Name Hip AB Side bilateral Resistance Lev 1 TB and without T-Band Reps/Minutes 15' Comments Much training and assist needed for trying to move properly PT-OP-T Assessment and Plan Start: 06/03/20 18:31 Freq: Status: Active Protocol: Document 08/08/20 12:52 LRN (Rec: 08/08/20 13:36 LRN [id number]) Physical Therapy Assessment Goals Four Impairment Lacks appropriate HEP Sleeve Baster Goal (LTG) Pt will be independent on a self care HEP. LTG Duration 08/30/20 (07/25/20: Progressing) 3 Impairment LEFS score 48/80 (48-62 score is 20-39% impairment) Sleeve Baster Goal (LTG) Improve pt function per LEFS of 52 or greater (48-62 score is 20-39% impairment). (07/14/20: LEFS score of 51/80 LTG Duration 08/30/20 (07/14/20: Improved, NOT MET GOAL) 2 Impairment decreased Nathan hip strength Short Term Goal (STG) Increase Nathan hip strength 1/2 grade with focus on hip AB ( Initial strength: Flex is 3/5 nathan, Ext is 3+/5 R, 3-/5 L; AB is 2-/5 bilateral; AD is 3-/5 R, 3+/5 L; ER is 4/5 R, 3+/5 L; IR s 3+/5 R, 3-/5 L). (07/14/20: Flex 5/5 nathan; Ext 3 +/5, 3-/5 L; AB is 2-/5 bilateral; AD is 3/5 R, 3+/5 L ; ER is 4/ R, 3 +/5 L; IR is 3 -/5 R, 2+/5 L). STG Duration 08/08/20 (07/14/20: No significant change other than flex is 5/5 bi) Fdc Goal (LTG) Increase Nathan hip AB strength to 4/5 to improve functional mobility with gait. LTG Duration 08/30/20 (07/14/20: NOT MET GOAL) 1 Impairment antalgic gait with device Short Term Goal (STG) Patient able to ambulate with minimal limp on level surface with 1-2 canes or walking sticks. (07/03/20: Pt ambs with 2 SPC with minimal hip shift on WBing). STG Duration 07/02/20 (07/03/20: MET GOAL) Fdc Goal (LTG) Patient able to ambulate safely with a cane on level surface outside the home. LTG Duration 08/30/20 (07/14/20: Improved, NOT MET GOAL). Progress Towards Goals Progress Towards Goals Slow Progress due to Medical Issues Assessment Summary Assessment Pt able to maintain upright posturing with abdominal strengthening of standing chest press. Visible core contraction noted with PNF ex. Hip AB and LE control is still very weak. Pt complaining of R toes 2,3 not moving into ext, but after assisted ext x 10, she was ble to perform toe ext; therefore weak. Physical Therapy Plan Frequency and Duration Frequency of Treatment 2x/Week Plan of Care Start Date 06/06/20 Plan of Care End Date 08/30/20 Next Visit Focus/Plan Next Note Type Treatment Note Next Visit Plan Try adding QL strengthening, might start in supine. Progress hip AB and core strengthening, Cont gait training with transition to cane.
--- NOTE | 2020-08-12 17:06 | PT.OTN ---
Current Diagnoses Trochanteric bursitis, right hip (08/12/20) Trochanteric bursitis, left hip (08/12/20) Iliotibial band syndrome, left leg (08/12/20) Physical Therapy Treatment Note PT-OP-A Visit Information Start: 06/03/20 18:31 Freq: Status: Active Protocol: Document 08/12/20 10:46 LRN (Rec: 08/12/20 11:27 LRN [id number]) Out-Patient Physical Therapy Visit Information Visit Information Visit Type Treatment Note Visit Start Time 10:46 Visit Stop Time 11:26 Total Visit Minutes 40 Visit Number 16 Evaluation Information Evaluation Date 06/06/20 Precautions Precautions Diabetes II Osteopenia Nathan TKA Bruises easily Hx of RBBB PT-OP-B Current Condition Start: 06/03/20 18:31 Freq: Status: Active Protocol: Document 06/06/20 12:47 LRN (Rec: 06/06/20 13:38 LRN [id number]) Current Condition History of Current Condition Onset Date 10/2019 Current Complaints Nathan hips wobble when walking when not using a walker. History of Current Condition The pt is very familiar to me. She was being seen earily this year for similar diagnosis' prior to the onset of the COVID 19 Pandemic. See developmental history below. Pt is now being referred for bilateral Trochanteric Bursitis and left IT band tendonitis. Pt reports initial onset of bilateral hip pain that started as her knee rehab was ending in Oct. She states her knees are good now. Her problem is her hips. She states they want to wobble . They go from side to side and it is starting to bother her back. Future Testing and Treatments Planned None Developmental History Developmental History Medical Records indicate pt had 4 months of PT after a L knee surgery towards the end of 2018. She had reported trouble walking for over a year. She then had therapy for L trochanteric bursitis of the L hip and IT band syndrome. She had a cortisone injection in the L hip 12/03/19 with pain relief. She also had occasional R hip pain. She was in L hip rehab from 01/01/20 to 02/14/20 with her rehabilitation interrupted due to COVID 19 pandemic. Pt return today for bilateral Trochanteric Bursitis and left IT band tendonitis. Treatment Goals Patient/Caregiver Goals Pt goal is to be able to walk with less hip sway and with a cane. Prior Functional Status Baseline Function- ADL's Independent Baseline Function- Mobility Independent Baseline Function- Gait Walks w/cane & FWW Baseline Function- Recreation/Hobbies Pool ex 3x/week, last time exercised was in 2018 Baseline Function- Other Stairs: Goes backwards descending, ascending 1 step at time. Uses both hands on 1 rail. Current Functional Impairments (Reported) Functional Limitations- ADL's Walking with wobbly hips causing back pain. Functional Limitations- Mobility/Gait Walks with FWW. Functional Limitations- Other 14 stairs going down to basement and 6 stairs going up to outside. Railing on boths sides. Personal Factors Other Personal Factors That May Effect Spouse the pt feels is of Therapy/Recovery declining health Controlled HBP Diabetes II Osteopenia L TKA - 12 yrs ago, R TKA - . Hypothyroid, hx of RBBB PT-OP-C Subjective Start: 06/03/20 18:31 Freq: Status: Active Protocol: Document 08/12/20 10:46 LRN (Rec: 08/12/20 16:58 LRN [id number]) OP-PT Subjective Patient Comments Patient Comments Continues to walk and does exercises daily. Back is a little sore. PT-OP-E Functional Tests Start: 06/03/20 18:31 Freq: Status: Active Protocol: Document 06/09/20 14:12 SP (Rec: 06/09/20 14:15 SP [id number]) Functional Tests Timed Up and Go (TUG) Score 17.60 sec Comments at risk for falls PT-OP-G Mobility & Gait Start: 06/03/20 18:31 Freq: Status: Active Protocol: Document 06/06/20 12:47 LRN (Rec: 06/06/20 17:10 LRN [id number]) OP Mobility Evaluation Bed Mobility Supine to and from Sit Independent Transfers Sit to Stand Independent OP Gait Assessment Gait Gait Assistance Required: Independent Able to Maintain Weight Bearing Status Yes During Gait Assistive Devices Assistive Device Front Wheeled Walker Gait Deviations General Gait Pattern Flexed Trunk,Narrow Based Gait Factors Limiting Gait Function Factors Limiting Gait Function Decreased Strength,Pain Comments Gait Comments Pt's hips show excessive pelvic lateral shift when weight bearing. Stair Climbing Evaluation Evaluation Level of Assist On Stairs Independent Technique/Endurance Stair Climbing Technique Step to Step Comments Stair Climbing Comments Pt reports her gait pattern has not changed since her last rehab program 01/01/20-02/14. She ambulates up stairs step to step while holding onto one railing. She descends stair by holding onto one railing and going backwards. PT-OP-J Posture/Palpation/Skin Start: 06/03/20 18:31 Freq: Status: Active Protocol: Document 06/06/20 12:47 LRN (Rec: 06/06/20 13:38 LRN [id number]) Posture Evaluation Position Standing Head/C-Spine Posture Forward Head L-Spine Posture Increased Lordosis Pelvis Posture Anteriorly Tilted Weight Distribution Balanced Comments Posture Comments Flexed at hips 15 deg's Palpation Assessment Location R hip Palpation Location Superior to Greater trochanter L hip Palpation Location TFL muscle belly, Superior to Greater trochanter Palpation Findings Tenderness PT-OP-K Range of Motion Start: 06/03/20 18:31 Freq: Status: Active Protocol: Document 06/06/20 12:47 LRN (Rec: 06/06/20 13:38 LRN [id number]) Hip Goniometric Range of Motion Hip Right Passive Testing Position Supine except ext in prone Straight Leg Raise 60 Extension 5 Abduction 25 Internal Rotation 45 External Rotation 60 Left Passive Testing Position Supine except ext in prone Straight Leg Raise 80 Extension 3 Abduction 32 Internal Rotation 60 External Rotation 60 PT-OP-M Strength Start: 06/03/20 18:31 Freq: Status: Active Protocol: Document 07/14/20 09:50 LRN (Rec: 07/14/20 11:15 LRN [id number]) Hip Strength Hip Manual Muscle Testing Right Flexion (L2) 5 Normal Extension (S1) 3 Fair Abduction 2- Poor- Adduction 3- Fair- External Rotation 4 Good Internal Rotation 3+ Fair+ Left Flexion (L2) 5 Normal Extension (S1) 3 Fair Abduction 2- Poor- Adduction 4 Good External Rotation 3+ Fair+ Internal Rotation 3- Fair- PT-OP-Q Treatments Start: 06/03/20 18:31 Freq: Status: Active Protocol: Document 08/12/20 10:46 LRN (Rec: 08/12/20 11:27 LRN [id number]) Gym Equipment Shuttle Balance Scissored wgt shift Details Scissored wgt shift bilaterally Reps/Duration 10' Comments Blue supports. Stepping motion Weight shift side to side Details Weight shift side to side Reps/Duration 8' Comments Blue supports Therapeutic Exercises Standing Exercises Hip hike Standing Exercise Name Hip Hike Side right Equipment Used 6 Platform Reps/Minutes 5' Comments phys assist needed to perform properly PNF patterns for core stab Standing Exercise Name PNF for core stab Side bilateral Resistance L2 & L3v 2 T-Band Reps/Minutes 10x each Comments Movement training, pt needed phys cuing during ex Trunk Flex Standing Exercise Name Trunk Flex Resistance L3 T Band, single band Reps/Minutes 15 x 3 Comments Phys cuing and stabilizing needed to keep hip flex out of ex. Hip Ext Standing Exercise Name Hip Ext Side bilateral Resistance Lev 1 TB Reps/Minutes 4' Comments Much Physical & v cuing need to perform ex properly. Hip AB Standing Exercise Name Hip AB Side bilateral Resistance without T-Band Reps/Minutes 8' Comments Much training and assist needed for trying to move properly PT-OP-T Assessment and Plan Start: 06/03/20 18:31 Freq: Status: Active Protocol: Document 08/12/20 10:46 LRN (Rec: 08/12/20 11:27 LRN [id number]) Physical Therapy Assessment Goals Four Impairment Lacks appropriate HEP Skilled Nursing Goal (LTG) Pt will be independent on a self care HEP. LTG Duration 08/30/20 (07/25/20: Progressing) 3 Impairment LEFS score 48/80 (48-62 score is 20-39% impairment) Skilled Nursing Goal (LTG) Improve pt function per LEFS of 52 or greater (48-62 score is 20-39% impairment). (07/14/20: LEFS score of 51/80 LTG Duration 08/30/20 (07/14/20: Improved, NOT MET GOAL) 2 Impairment decreased Nathan hip strength Short Term Goal (STG) Increase Nathan hip strength 1/2 grade with focus on hip AB ( Initial strength: Flex is 3/5 nathan, Ext is 3+/5 R, 3-/5 L; AB is 2-/5 bilateral; AD is 3-/5 R, 3+/5 L; ER is 4/5 R, 3+/5 L; IR s 3+/5 R, 3-/5 L). (07/14/20: Flex 5/5 nathan; Ext 3 +/5, 3-/5 L; AB is 2-/5 bilateral; AD is 3/5 R, 3+/5 L ; ER is 4/ R, 3 +/5 L; IR is 3 -/5 R, 2+/5 L). STG Duration 08/08/20 (07/14/20: No significant change other than flex is 5/5 bi) Skilled Nursing Goal (LTG) Increase Nathan hip AB strength to 4/5 to improve functional mobility with gait. LTG Duration 08/30/20 (07/14/20: NOT MET GOAL) 1 Impairment antalgic gait with device Short Term Goal (STG) Patient able to ambulate with minimal limp on level surface with 1-2 canes or walking sticks. (07/03/20: Pt ambs with 2 SPC with minimal hip shift on WBing). STG Duration 07/02/20 (07/03/20: MET GOAL) Skilled Nursing Goal (LTG) Patient able to ambulate safely with a cane on level surface outside the home. LTG Duration 08/30/20 (07/14/20: Improved, NOT MET GOAL). Assessment Summary Assessment Pt requires much time and has difficulty following instructions to perform QL strengthening in standing. She is not able to control drop of the pelvis on the right very well; therefore may need to start in supine. Physical Therapy Plan Frequency and Duration Frequency of Treatment 2x/Week Plan of Care Start Date 06/06/20 Plan of Care End Date 08/30/20 Next Visit Focus/Plan Next Note Type Treatment Note Next Visit Plan Progress QL strengthening, in supine to start strengthening. Progress hip AB and continue core strengthening, Cont gait training for transition to cane.
--- NOTE | 2020-08-15 17:09 | PT.OTN ---
Current Diagnoses Trochanteric bursitis, right hip (08/15/20) Trochanteric bursitis, left hip (08/15/20) Iliotibial band syndrome, left leg (08/15/20) Physical Therapy Treatment Note PT-OP-A Visit Information Start: 06/03/20 18:31 Freq: Status: Active Protocol: Document 08/15/20 08:14 LRN (Rec: 08/15/20 09:01 LRN [id number]) Out-Patient Physical Therapy Visit Information Visit Information Visit Type Treatment Note Visit Start Time 08:14 Visit Stop Time 08:59 Total Visit Minutes 45 Visit Number 17 Evaluation Information Evaluation Date 06/06/20 Precautions Precautions Diabetes II Osteopenia Nathan TKA Bruises easily Hx of RBBB PT-OP-B Current Condition Start: 06/03/20 18:31 Freq: Status: Active Protocol: Document 06/06/20 12:47 LRN (Rec: 06/06/20 13:38 LRN [id number]) Current Condition History of Current Condition Onset Date 10/2019 Current Complaints Nathan hips wobble when walking when not using a walker. History of Current Condition The pt is very familiar to me. She was being seen earily this year for similar diagnosis' prior to the onset of the COVID 19 Pandemic. See developmental history below. Pt is now being referred for bilateral Trochanteric Bursitis and left IT band tendonitis. Pt reports initial onset of bilateral hip pain that started as her knee rehab was ending in Oct. She states her knees are good now. Her problem is her hips. She states they want to wobble . They go from side to side and it is starting to bother her back. Future Testing and Treatments Planned None Developmental History Developmental History Medical Records indicate pt had 4 months of PT after a L knee surgery towards the end of 2018. She had reported trouble walking for over a year. She then had therapy for L trochanteric bursitis of the L hip and IT band syndrome. She had a cortisone injection in the L hip 12/03/19 with pain relief. She also had occasional R hip pain. She was in L hip rehab from 01/01/20 to 02/14/20 with her rehabilitation interrupted due to COVID 19 pandemic. Pt return today for bilateral Trochanteric Bursitis and left IT band tendonitis. Treatment Goals Patient/Caregiver Goals Pt goal is to be able to walk with less hip sway and with a cane. Prior Functional Status Baseline Function- ADL's Independent Baseline Function- Mobility Independent Baseline Function- Gait Walks w/cane & FWW Baseline Function- Recreation/Hobbies Pool ex 3x/week, last time exercised was in 2018 Baseline Function- Other Stairs: Goes backwards descending, ascending 1 step at time. Uses both hands on 1 rail. Current Functional Impairments (Reported) Functional Limitations- ADL's Walking with wobbly hips causing back pain. Functional Limitations- Mobility/Gait Walks with FWW. Functional Limitations- Other 14 stairs going down to basement and 6 stairs going up to outside. Railing on boths sides. Personal Factors Other Personal Factors That May Effect Spouse the pt feels is of Therapy/Recovery declining health Controlled HBP Diabetes II Osteopenia L TKA - 12 yrs ago, R TKA - . Hypothyroid, hx of RBBB PT-OP-C Subjective Start: 06/03/20 18:31 Freq: Status: Active Protocol: Document 08/15/20 08:14 LRN (Rec: 08/15/20 09:01 LRN [id number]) OP-PT Subjective Patient Comments Patient Comments Hasn't been able to walk due to poor air quality from smoke . Back is still bother her. PT-OP-E Functional Tests Start: 06/03/20 18:31 Freq: Status: Active Protocol: Document 06/09/20 14:12 SP (Rec: 06/09/20 14:15 SP [id number]) Functional Tests Timed Up and Go (TUG) Score 17.60 sec Comments at risk for falls PT-OP-G Mobility & Gait Start: 06/03/20 18:31 Freq: Status: Active Protocol: Document 06/06/20 12:47 LRN (Rec: 06/06/20 17:10 LRN [id number]) OP Mobility Evaluation Bed Mobility Supine to and from Sit Independent Transfers Sit to Stand Independent OP Gait Assessment Gait Gait Assistance Required: Independent Able to Maintain Weight Bearing Status Yes During Gait Assistive Devices Assistive Device Front Wheeled Walker Gait Deviations General Gait Pattern Flexed Trunk,Narrow Based Gait Factors Limiting Gait Function Factors Limiting Gait Function Decreased Strength,Pain Comments Gait Comments Pt's hips show excessive pelvic lateral shift when weight bearing. Stair Climbing Evaluation Evaluation Level of Assist On Stairs Independent Technique/Endurance Stair Climbing Technique Step to Step Comments Stair Climbing Comments Pt reports her gait pattern has not changed since her last rehab program 01/01/20-02/14. She ambulates up stairs step to step while holding onto one railing. She descends stair by holding onto one railing and going backwards. PT-OP-J Posture/Palpation/Skin Start: 06/03/20 18:31 Freq: Status: Active Protocol: Document 06/06/20 12:47 LRN (Rec: 06/06/20 13:38 LRN [id number]) Posture Evaluation Position Standing Head/C-Spine Posture Forward Head L-Spine Posture Increased Lordosis Pelvis Posture Anteriorly Tilted Weight Distribution Balanced Comments Posture Comments Flexed at hips 15 deg's Palpation Assessment Location R hip Palpation Location Superior to Greater trochanter L hip Palpation Location TFL muscle belly, Superior to Greater trochanter Palpation Findings Tenderness PT-OP-K Range of Motion Start: 06/03/20 18:31 Freq: Status: Active Protocol: Document 06/06/20 12:47 LRN (Rec: 06/06/20 13:38 LRN [id number]) Hip Goniometric Range of Motion Hip Right Passive Testing Position Supine except ext in prone Straight Leg Raise 60 Extension 5 Abduction 25 Internal Rotation 45 External Rotation 60 Left Passive Testing Position Supine except ext in prone Straight Leg Raise 80 Extension 3 Abduction 32 Internal Rotation 60 External Rotation 60 PT-OP-M Strength Start: 06/03/20 18:31 Freq: Status: Active Protocol: Document 07/14/20 09:50 LRN (Rec: 07/14/20 11:15 LRN [id number]) Hip Strength Hip Manual Muscle Testing Right Flexion (L2) 5 Normal Extension (S1) 3 Fair Abduction 2- Poor- Adduction 3- Fair- External Rotation 4 Good Internal Rotation 3+ Fair+ Left Flexion (L2) 5 Normal Extension (S1) 3 Fair Abduction 2- Poor- Adduction 4 Good External Rotation 3+ Fair+ Internal Rotation 3- Fair- PT-OP-Q Treatments Start: 06/03/20 18:31 Freq: Status: Active Protocol: Document 08/15/20 08:14 LRN (Rec: 08/15/20 09:01 LRN [id number]) Therapeutic Exercises Supine Exercises Hip Hike Supine Exercise Name Hip Hike Side bilateral Reps/Minutes 7' Comments Phys & v cuing needed. Not able to activiate R QL ><. Poor core stab Standing Exercises Trunk Flex Standing Exercise Name Trunk Flex Resistance L3 T Band, single band Reps/Minutes 15 x 3 Comments Phys cuing and stabilizing needed to keep hip flex out of ex. Trunk rot Standing Exercise Name Trunk rot Side bilateral Resistance Lev 3 T-Band, single band Reps/Minutes 15 x 3 Comments v. cuing needed for trunk rot vs arms pulling. Hip Ext Standing Exercise Name Hip Ext Side bilateral Resistance Lev 1 TB Reps/Minutes 4' Comments Much Physical & v cuing need to perform ex properly. Hip AB Standing Exercise Name Hip AB & side stepping Side bilateral Resistance Lev 1 T-Band Reps/Minutes 8' Comments Training and assist needed for trying to move properly Gait Training Gait Activity Gait with Assist Device Description Gt training with SPC Device Used 1-2 SPC's Level of Assistance Indep Surface Level Distance/Duration 4' Treatment Focus Hip control Comments Pt puts more wgt into R hand and has noticeable L hip swing on wgt bearing; therefore weakness L hip AB > R hip AB. Self-Care/Home Management Treatment Education Patient Education Home Exercise Program Activities Self-Care/Home Management Activities Issued & reviewed HEP: QL strengthening in supine & standing. PT-OP-T Assessment and Plan Start: 06/03/20 18:31 Freq: Status: Active Protocol: Document 08/15/20 08:14 LRN (Rec: 08/15/20 09:01 LRN [id number]) Physical Therapy Assessment Goals Four Impairment Lacks appropriate HEP Alf Goal (LTG) Pt will be independent on a self care HEP. LTG Duration 08/30/20 (08/15/20: Progressing) 3 Impairment LEFS score 48/80 (48-62 score is 20-39% impairment) Alf Goal (LTG) Improve pt function per LEFS of 52 or greater (48-62 score is 20-39% impairment). (07/14/20: LEFS score of 51/80 LTG Duration 08/30/20 (07/14/20: Improved, NOT MET GOAL) 2 Impairment decreased Nathan hip strength Short Term Goal (STG) Increase Nathan hip strength 1/2 grade with focus on hip AB ( Initial strength: Flex is 3/5 nathan, Ext is 3+/5 R, 3-/5 L; AB is 2-/5 bilateral; AD is 3-/5 R, 3+/5 L; ER is 4/5 R, 3+/5 L; IR s 3+/5 R, 3-/5 L). (07/14/20: Flex 5/5 nathan; Ext 3 +/5, 3-/5 L; AB is 2-/5 bilateral; AD is 3/5 R, 3+/5 L ; ER is 4/ R, 3 +/5 L; IR is 3 -/5 R, 2+/5 L). STG Duration 08/08/20 (07/14/20: No significant change other than flex is 5/5 bi) Music Leader Goal (LTG) Increase Nathan hip AB strength to 4/5 to improve functional mobility with gait. LTG Duration 08/30/20 (07/14/20: NOT MET GOAL) 1 Impairment antalgic gait with device Short Term Goal (STG) Patient able to ambulate with minimal limp on level surface with 1-2 canes or walking sticks. (07/03/20: Pt ambs with 2 SPC with minimal hip shift on WBing). STG Duration 07/02/20 (07/03/20: MET GOAL) Alf Goal (LTG) Patient able to ambulate safely with a cane on level surface outside the home. LTG Duration 08/30/20 (07/14/20: Improved, NOT MET GOAL). Progress Towards Goals Progress Towards Goals Progressing Toward Goals Progress Comments Pt is able to walk with 1 cane on L side with fairly good trunk and hip control. Her R side is weak with excessive sway of the hips and low back irritation onset. Progressed pt's HEP. Assessment Summary Assessment Pt is able to walk with 2 canes, but places greater weight into the L arm; therefore her R hip is weaker than L and core stability is less. She is weaker on the R lateral trunk and QL. Physical Therapy Plan Frequency and Duration Frequency of Treatment 2x/Week Plan of Care Start Date 06/06/20 Plan of Care End Date 08/30/20 Next Visit Focus/Plan Next Note Type Treatment Note Next Visit Plan Manual therapy to the back to decreased back pain and improve gait mechanics. Progress QL strengthening (R is weaker than L) supine > standing. Add trunk SB strengthening, R>L. Progress hip AB and continue core strengthening, Cont gait training for transition to cane.
--- NOTE | 2020-08-18 16:40 | PT.OTN ---
Current Diagnoses Trochanteric bursitis, right hip (08/18/20) Trochanteric bursitis, left hip (08/18/20) Iliotibial band syndrome, left leg (08/18/20) Physical Therapy Treatment Note PT-OP-A Visit Information Start: 06/03/20 18:31 Freq: Status: Active Protocol: Document 08/18/20 08:17 LRN (Rec: 08/18/20 09:01 LRN [id number]) Out-Patient Physical Therapy Visit Information Visit Information Visit Type Treatment Note Visit Note 7 after PN Visit Start Time 08:17 Visit Stop Time 09:58 Total Visit Minutes 41 Visit Number 18 Evaluation Information Evaluation Date 06/06/20 Precautions Precautions Diabetes II Osteopenia Nathan TKA Bruises easily Hx of RBBB PT-OP-B Current Condition Start: 06/03/20 18:31 Freq: Status: Active Protocol: Document 06/06/20 12:47 LRN (Rec: 06/06/20 13:38 LRN [id number]) Current Condition History of Current Condition Onset Date 10/2019 Current Complaints Nathan hips wobble when walking when not using a walker. History of Current Condition The pt is very familiar to me. She was being seen earily this year for similar diagnosis' prior to the onset of the COVID 19 Pandemic. See developmental history below. Pt is now being referred for bilateral Trochanteric Bursitis and left IT band tendonitis. Pt reports initial onset of bilateral hip pain that started as her knee rehab was ending in Oct. She states her knees are good now. Her problem is her hips. She states they want to wobble . They go from side to side and it is starting to bother her back. Future Testing and Treatments Planned None Developmental History Developmental History Medical Records indicate pt had 4 months of PT after a L knee surgery towards the end of 2018. She had reported trouble walking for over a year. She then had therapy for L trochanteric bursitis of the L hip and IT band syndrome. She had a cortisone injection in the L hip 12/03/19 with pain relief. She also had occasional R hip pain. She was in L hip rehab from 01/01/20 to 02/14/20 with her rehabilitation interrupted due to COVID 19 pandemic. Pt return today for bilateral Trochanteric Bursitis and left IT band tendonitis. Treatment Goals Patient/Caregiver Goals Pt goal is to be able to walk with less hip sway and with a cane. Prior Functional Status Baseline Function- ADL's Independent Baseline Function- Mobility Independent Baseline Function- Gait Walks w/cane & FWW Baseline Function- Recreation/Hobbies Pool ex 3x/week, last time exercised was in 2018 Baseline Function- Other Stairs: Goes backwards descending, ascending 1 step at time. Uses both hands on 1 rail. Current Functional Impairments (Reported) Functional Limitations- ADL's Walking with wobbly hips causing back pain. Functional Limitations- Mobility/Gait Walks with FWW. Functional Limitations- Other 14 stairs going down to basement and 6 stairs going up to outside. Railing on boths sides. Personal Factors Other Personal Factors That May Effect Spouse the pt feels is of Therapy/Recovery declining health Controlled HBP Diabetes II Osteopenia L TKA - 12 yrs ago, R TKA - . Hypothyroid, hx of RBBB PT-OP-C Subjective Start: 06/03/20 18:31 Freq: Status: Active Protocol: Document 08/18/20 08:17 LRN (Rec: 08/18/20 09:01 LRN [id number]) OP-PT Subjective Patient Comments Patient Comments Sometimes the back bothers her , rates it as 3/10, constant. PT-OP-E Functional Tests Start: 06/03/20 18:31 Freq: Status: Active Protocol: Document 06/09/20 14:12 SP (Rec: 06/09/20 14:15 SP [id number]) Functional Tests Timed Up and Go (TUG) Score 17.60 sec Comments at risk for falls PT-OP-G Mobility & Gait Start: 06/03/20 18:31 Freq: Status: Active Protocol: Document 06/06/20 12:47 LRN (Rec: 06/06/20 17:10 LRN [id number]) OP Mobility Evaluation Bed Mobility Supine to and from Sit Independent Transfers Sit to Stand Independent OP Gait Assessment Gait Gait Assistance Required: Independent Able to Maintain Weight Bearing Status Yes During Gait Assistive Devices Assistive Device Front Wheeled Walker Gait Deviations General Gait Pattern Flexed Trunk,Narrow Based Gait Factors Limiting Gait Function Factors Limiting Gait Function Decreased Strength,Pain Comments Gait Comments Pt's hips show excessive pelvic lateral shift when weight bearing. Stair Climbing Evaluation Evaluation Level of Assist On Stairs Independent Technique/Endurance Stair Climbing Technique Step to Step Comments Stair Climbing Comments Pt reports her gait pattern has not changed since her last rehab program 01/01/20-02/14. She ambulates up stairs step to step while holding onto one railing. She descends stair by holding onto one railing and going backwards. PT-OP-J Posture/Palpation/Skin Start: 06/03/20 18:31 Freq: Status: Active Protocol: Document 06/06/20 12:47 LRN (Rec: 06/06/20 13:38 LRN [id number]) Posture Evaluation Position Standing Head/C-Spine Posture Forward Head L-Spine Posture Increased Lordosis Pelvis Posture Anteriorly Tilted Weight Distribution Balanced Comments Posture Comments Flexed at hips 15 deg's Palpation Assessment Location R hip Palpation Location Superior to Greater trochanter L hip Palpation Location TFL muscle belly, Superior to Greater trochanter Palpation Findings Tenderness PT-OP-K Range of Motion Start: 06/03/20 18:31 Freq: Status: Active Protocol: Document 06/06/20 12:47 LRN (Rec: 06/06/20 13:38 LRN [id number]) Hip Goniometric Range of Motion Hip Right Passive Testing Position Supine except ext in prone Straight Leg Raise 60 Extension 5 Abduction 25 Internal Rotation 45 External Rotation 60 Left Passive Testing Position Supine except ext in prone Straight Leg Raise 80 Extension 3 Abduction 32 Internal Rotation 60 External Rotation 60 PT-OP-M Strength Start: 06/03/20 18:31 Freq: Status: Active Protocol: Document 07/14/20 09:50 LRN (Rec: 07/14/20 11:15 LRN [id number]) Hip Strength Hip Manual Muscle Testing Right Flexion (L2) 5 Normal Extension (S1) 3 Fair Abduction 2- Poor- Adduction 3- Fair- External Rotation 4 Good Internal Rotation 3+ Fair+ Left Flexion (L2) 5 Normal Extension (S1) 3 Fair Abduction 2- Poor- Adduction 4 Good External Rotation 3+ Fair+ Internal Rotation 3- Fair- PT-OP-Q Treatments Start: 06/03/20 18:31 Freq: Status: Active Protocol: Document 08/18/20 08:17 LRN (Rec: 08/18/20 09:01 LRN [id number]) Therapeutic Exercises Standing Exercises Side bending Standing Exercise Name Sidebending Side bilateral Resistance Blue sport cord Equipment Used Sport cord w/strap around upper chest Reps/Minutes 4' Comments constant cuing to SB vs swaying PNF patterns for core stab Standing Exercise Name PNF for core stab (kees straight Side bilateral Resistance L2 T-Band Reps/Minutes 15x each Comments Movement training, pt needed phys cuing during ex Trunk Flex Standing Exercise Name Trunk Flex Resistance Sport cord w/strap around upper chest Reps/Minutes 15 x 3 Comments Phys cuing and stabilizing needed to keep hip flex out of ex. Trunk rot Standing Exercise Name Trunk rot Side bilateral Resistance Lev 3 T-Band, single band Reps/Minutes 15 x 3 Comments phys cuing for hand hold and rot trunk vs arm pulls Hip Ext Standing Exercise Name Hip Ext Side bilateral Resistance Lev 1 TB Reps/Minutes 4' Comments Much Physical & v cuing need to perform ex properly. Hip AB Standing Exercise Name Hip AB & side stepping Side bilateral Resistance Lev 1 T-Band Reps/Minutes 4' Comments Training and assist needed for trying to move properly Manual Therapy Treatment Soft Tissue Mobilization Low back Body Location Low back Mobilization Type Strumming Intensity/Depth Moderate Body Position Sidelying PT-OP-T Assessment and Plan Start: 06/03/20 18:31 Freq: Status: Active Protocol: Document 08/18/20 08:17 LRN (Rec: 08/18/20 09:01 LRN [id number]) Physical Therapy Assessment Goals Four Impairment Lacks appropriate HEP Manager Mall Goal (LTG) Pt will be independent on a self care HEP. LTG Duration 08/30/20 (08/15/20: Progressing) 3 Impairment LEFS score 48/80 (48-62 score is 20-39% impairment) Manager Mall Goal (LTG) Improve pt function per LEFS of 52 or greater (48-62 score is 20-39% impairment). (07/14/20: LEFS score of 51/80 LTG Duration 08/30/20 (07/14/20: Improved, NOT MET GOAL) 2 Impairment decreased Nathan hip strength Short Term Goal (STG) Increase Nathan hip strength 1/2 grade with focus on hip AB ( Initial strength: Flex is 3/5 nathan, Ext is 3+/5 R, 3-/5 L; AB is 2-/5 bilateral; AD is 3-/5 R, 3+/5 L; ER is 4/5 R, 3+/5 L; IR s 3+/5 R, 3-/5 L). (07/14/20: Flex 5/5 nathan; Ext 3 +/5, 3-/5 L; AB is 2-/5 bilateral; AD is 3/5 R, 3+/5 L ; ER is 4/ R, 3 +/5 L; IR is 3 -/5 R, 2+/5 L). STG Duration 08/08/20 (07/14/20: No significant change other than flex is 5/5 nathan) Custodial Goal (LTG) Increase Nathan hip AB strength to 4/5 to improve functional mobility with gait. LTG Duration 08/30/20 (07/14/20: NOT MET GOAL) 1 Impairment antalgic gait with device Short Term Goal (STG) Patient able to ambulate with minimal limp on level surface with 1-2 canes or walking sticks. (07/03/20: Pt ambs with 2 SPC with minimal hip shift on WBing). STG Duration 07/02/20 (07/03/20: MET GOAL) Custodial Goal (LTG) Patient able to ambulate safely with a cane on level surface outside the home. LTG Duration 08/30/20 (07/14/20: Improved, NOT MET GOAL). Progress Towards Goals Progress Comments Palpable QL in activation in supine, no leg movement noted. Assessment Summary Assessment Pt shows minimal movement SB and tends to sway, more training needed. No palpable pain in the low back; pt notes pain in LB is when walking. moving. Physical Therapy Plan Frequency and Duration Frequency of Treatment 2x/Week Plan of Care Start Date 06/06/20 Plan of Care End Date 08/30/20 Next Visit Focus/Plan Next Note Type Treatment Note Next Visit Plan Assess LEFS. Progress QL strengthening (R is weaker than L) supine > standing. Add trunk SB strengthening, R> L. Progress hip AB and continue core strengthening, Cont gait training for transition to cane.
--- NOTE | 2020-08-22 16:06 | PT.OTN ---
Current Diagnoses Trochanteric bursitis, right hip (08/22/20) Trochanteric bursitis, left hip (08/22/20) Iliotibial band syndrome, left leg (08/22/20) Physical Therapy Treatment Note PT-OP-A Visit Information Start: 06/03/20 18:31 Freq: Status: Active Protocol: Document 08/22/20 09:02 LRN (Rec: 08/22/20 09:47 LRN [id number]) Out-Patient Physical Therapy Visit Information Visit Information Visit Type Treatment Note Visit Note 7 after PN Visit Start Time 09:02 Visit Stop Time 09:48 Total Visit Minutes 46 Visit Number 19 Evaluation Information Evaluation Date 06/06/20 Precautions Precautions Diabetes II Osteopenia Nathan TKA Bruises easily Hx of RBBB PT-OP-B Current Condition Start: 06/03/20 18:31 Freq: Status: Active Protocol: Document 06/06/20 12:47 LRN (Rec: 06/06/20 13:38 LRN [id number]) Current Condition History of Current Condition Onset Date 10/2019 Current Complaints Nathan hips wobble when walking when not using a walker. History of Current Condition The pt is very familiar to me. She was being seen earily this year for similar diagnosis' prior to the onset of the COVID 19 Pandemic. See developmental history below. Pt is now being referred for bilateral Trochanteric Bursitis and left IT band tendonitis. Pt reports initial onset of bilateral hip pain that started as her knee rehab was ending in Oct. She states her knees are good now. Her problem is her hips. She states they want to wobble . They go from side to side and it is starting to bother her back. Future Testing and Treatments Planned None Developmental History Developmental History Medical Records indicate pt had 4 months of PT after a L knee surgery towards the end of 2018. She had reported trouble walking for over a year. She then had therapy for L trochanteric bursitis of the L hip and IT band syndrome. She had a cortisone injection in the L hip 12/03/19 with pain relief. She also had occasional R hip pain. She was in L hip rehab from 01/01/20 to 02/14/20 with her rehabilitation interrupted due to COVID 19 pandemic. Pt return today for bilateral Trochanteric Bursitis and left IT band tendonitis. Treatment Goals Patient/Caregiver Goals Pt goal is to be able to walk with less hip sway and with a cane. Prior Functional Status Baseline Function- ADL's Independent Baseline Function- Mobility Independent Baseline Function- Gait Walks w/cane & FWW Baseline Function- Recreation/Hobbies Pool ex 3x/week, last time exercised was in 2018 Baseline Function- Other Stairs: Goes backwards descending, ascending 1 step at time. Uses both hands on 1 rail. Current Functional Impairments (Reported) Functional Limitations- ADL's Walking with wobbly hips causing back pain. Functional Limitations- Mobility/Gait Walks with FWW. Functional Limitations- Other 14 stairs going down to basement and 6 stairs going up to outside. Railing on boths sides. Personal Factors Other Personal Factors That May Effect Spouse the pt feels is of Therapy/Recovery declining health Controlled HBP Diabetes II Osteopenia L TKA - 12 yrs ago, R TKA - . Hypothyroid, hx of RBBB PT-OP-C Subjective Start: 06/03/20 18:31 Freq: Status: Active Protocol: Document 08/22/20 09:02 LRN (Rec: 08/22/20 09:47 LRN [id number]) OP-PT Subjective Patient Comments Patient Comments States the back is a little better. Has been walking. Patient Questionnaires Lower Extremity Functional Scale LEFS Score 57 LEFS Impairment 20 to 39% Impaired (Score 48- 62) PT-OP-E Functional Tests Start: 06/03/20 18:31 Freq: Status: Active Protocol: Document 06/09/20 14:12 SP (Rec: 06/09/20 14:15 SP [id number]) Functional Tests Timed Up and Go (TUG) Score 17.60 sec Comments at risk for falls PT-OP-G Mobility & Gait Start: 06/03/20 18:31 Freq: Status: Active Protocol: Document 06/06/20 12:47 LRN (Rec: 06/06/20 17:10 LRN [id number]) OP Mobility Evaluation Bed Mobility Supine to and from Sit Independent Transfers Sit to Stand Independent OP Gait Assessment Gait Gait Assistance Required: Independent Able to Maintain Weight Bearing Status Yes During Gait Assistive Devices Assistive Device Front Wheeled Walker Gait Deviations General Gait Pattern Flexed Trunk,Narrow Based Gait Factors Limiting Gait Function Factors Limiting Gait Function Decreased Strength,Pain Comments Gait Comments Pt's hips show excessive pelvic lateral shift when weight bearing. Stair Climbing Evaluation Evaluation Level of Assist On Stairs Independent Technique/Endurance Stair Climbing Technique Step to Step Comments Stair Climbing Comments Pt reports her gait pattern has not changed since her last rehab program 01/01/20-02/14. She ambulates up stairs step to step while holding onto one railing. She descends stair by holding onto one railing and going backwards. PT-OP-J Posture/Palpation/Skin Start: 06/03/20 18:31 Freq: Status: Active Protocol: Document 06/06/20 12:47 LRN (Rec: 06/06/20 13:38 LRN [id number]) Posture Evaluation Position Standing Head/C-Spine Posture Forward Head L-Spine Posture Increased Lordosis Pelvis Posture Anteriorly Tilted Weight Distribution Balanced Comments Posture Comments Flexed at hips 15 deg's Palpation Assessment Location R hip Palpation Location Superior to Greater trochanter L hip Palpation Location TFL muscle belly, Superior to Greater trochanter Palpation Findings Tenderness PT-OP-K Range of Motion Start: 06/03/20 18:31 Freq: Status: Active Protocol: Document 06/06/20 12:47 LRN (Rec: 06/06/20 13:38 LRN [id number]) Hip Goniometric Range of Motion Hip Right Passive Testing Position Supine except ext in prone Straight Leg Raise 60 Extension 5 Abduction 25 Internal Rotation 45 External Rotation 60 Left Passive Testing Position Supine except ext in prone Straight Leg Raise 80 Extension 3 Abduction 32 Internal Rotation 60 External Rotation 60 PT-OP-M Strength Start: 06/03/20 18:31 Freq: Status: Active Protocol: Document 07/14/20 09:50 LRN (Rec: 07/14/20 11:15 LRN [id number]) Hip Strength Hip Manual Muscle Testing Right Flexion (L2) 5 Normal Extension (S1) 3 Fair Abduction 2- Poor- Adduction 3- Fair- External Rotation 4 Good Internal Rotation 3+ Fair+ Left Flexion (L2) 5 Normal Extension (S1) 3 Fair Abduction 2- Poor- Adduction 4 Good External Rotation 3+ Fair+ Internal Rotation 3- Fair- PT-OP-Q Treatments Start: 06/03/20 18:31 Freq: Status: Active Protocol: Document 08/22/20 09:02 LRN (Rec: 08/22/20 09:47 LRN [id number]) Therapeutic Exercises Supine Exercises Hip Hike Supine Exercise Name Hip Hike Side bilateral Reps/Minutes 5' Comments Phys & v cuing needed. Not able to activiate R QL ><. Poor core stab Standing Exercises Side bending Standing Exercise Name Sidebending Side bilateral Resistance Blue sport cord Equipment Used Sport cord w/strap around upper chest Reps/Minutes 6' (10x3) Comments Phys & v. cuing to SB vs swaying PNF patterns for core stab Standing Exercise Name PNF for core stab (kees straight Side bilateral Resistance L2 T-Band Reps/Minutes 15x 2 Comments Needed phys cuing during ex for proper posturing (on end & start) Trunk Flex Standing Exercise Name Trunk Flex Resistance Sport cord w/strap around upper chest Reps/Minutes 30x Comments Phys cuing and stabilizing needed to keep hip flex out of ex. Trunk rot Standing Exercise Name Trunk rot (rotated out more on 1st set of 10) Side bilateral Resistance Lev 3 T-Band, single band Reps/Minutes 10 x 3 Comments phys cuing for hand hold and rot trunk vs arm pulls Hip Ext Standing Exercise Name Hip Ext Side bilateral Resistance Lev 1 TB Reps/Minutes 10 x 3 Comments Some phys & v cuing need to perform ex properly. Hip AB Standing Exercise Name Hip AB & side stepping Side bilateral Resistance Lev 1 T-Band Reps/Minutes 4' Comments v. cuing needed to move properly PT-OP-T Assessment and Plan Start: 06/03/20 18:31 Freq: Status: Active Protocol: Document 08/22/20 09:02 MG (Rec: 08/22/20 09:47 LRN [id number]) Physical Therapy Assessment Goals Four Impairment Lacks appropriate HEP [facility] Goal (LTG) Pt will be independent on a self care HEP. LTG Duration 08/30/20 (08/15/20: Progressing) 3 Impairment LEFS score 48/80 (48-62 score is 20-39% impairment) [facility] Goal (LTG) Improve pt function per LEFS of 52 or greater (48-62 score is 20-39% impairment). (07/14/20: LEFS score of 51/80 LTG Duration 08/30/20 (07/14/20: Improved, NOT MET GOAL) 2 Impairment decreased Nathan hip strength Short Term Goal (STG) Increase Nathan hip strength 1/2 grade with focus on hip AB ( Initial strength: Flex is 3/5 nathan, Ext is 3+/5 R, 3-/5 L; AB is 2-/5 bilateral; AD is 3-/5 R, 3+/5 L; ER is 4/5 R, 3+/5 L; IR s 3+/5 R, 3-/5 L). (07/14/20: Flex 5/5 nathan; Ext 3 +/5, 3-/5 L; AB is 2-/5 bilateral; AD is 3/5 R, 3+/5 L ; ER is 4/ R, 3 +/5 L; IR is 3 -/5 R, 2+/5 L). STG Duration 08/08/20 (07/14/20: No significant change other than flex is 5/5 nathan) Nursing Agency Manager Goal (LTG) Increase Nathan hip AB strength to 4/5 to improve functional mobility with gait. LTG Duration 08/30/20 (07/14/20: NOT MET GOAL) 1 Impairment antalgic gait with device Short Term Goal (STG) Patient able to ambulate with minimal limp on level surface with 1-2 canes or walking sticks. (07/03/20: Pt ambs with 2 SPC with minimal hip shift on WBing). STG Duration 07/02/20 (07/03/20: MET GOAL) [facility] Goal (LTG) Patient able to ambulate safely with a cane on level surface outside the home. LTG Duration 08/30/20 (07/14/20: Improved, NOT MET GOAL). Progress Towards Goals Progress Comments Pt able to activate QL in supine with leg movement on R and obvious hip lift. Minimal on L. Per LEFS score improved from 51 (37% impaired) to 57 (29% impaired). Assessment Summary Assessment Increased isolation of SB motion; pt able to keep L knee straight during L SB. QL strength improved on R. Pt function has improved from 37% impaired to 29% impaired. Physical Therapy Plan Frequency and Duration Frequency of Treatment 2x/Week Plan of Care Start Date 06/06/20 Plan of Care End Date 08/30/20 Next Visit Focus/Plan Next Note Type Treatment Note Next Visit Plan New POC needed; therefore do PN although note required for 3 visits. Progress QL strengthening (R is weaker than L) supine > standing. Progress trunk SB strengthening, R>L. Progress hip AB and continue core strengthening, Cont gait training for transition to cane.
--- NOTE | 2020-08-26 14:39 | PT.OTN ---
Current Diagnoses Trochanteric bursitis, right hip (08/26/20) Trochanteric bursitis, left hip (08/26/20) Iliotibial band syndrome, left leg (08/26/20) Physical Therapy Treatment Note PT-OP-A Visit Information Start: 06/03/20 18:31 Freq: Status: Active Protocol: Document 08/26/20 09:05 LRN (Rec: 08/26/20 09:49 LRN [id number]) Out-Patient Physical Therapy Visit Information Visit Information Visit Type Progress Note Visit Start Time 09:05 Visit Stop Time 09:48 Total Visit Minutes 43 Visit Number 20 Evaluation Information Evaluation Date 06/06/20 Precautions Precautions Diabetes II Osteopenia Nathan TKA Bruises easily Hx of RBBB PT-OP-B Current Condition Start: 06/03/20 18:31 Freq: Status: Active Protocol: Document 06/06/20 12:47 LRN (Rec: 06/06/20 13:38 LRN [id number]) Current Condition History of Current Condition Onset Date 10/2019 Current Complaints Nathan hips wobble when walking when not using a walker. History of Current Condition The pt is very familiar to me. She was being seen earily this year for similar diagnosis' prior to the onset of the COVID 19 Pandemic. See developmental history below. Pt is now being referred for bilateral Trochanteric Bursitis and left IT band tendonitis. Pt reports initial onset of bilateral hip pain that started as her knee rehab was ending in Oct. She states her knees are good now. Her problem is her hips. She states they want to wobble . They go from side to side and it is starting to bother her back. Future Testing and Treatments Planned None Developmental History Developmental History Medical Records indicate pt had 4 months of PT after a L knee surgery towards the end of 2018. She had reported trouble walking for over a year. She then had therapy for L trochanteric bursitis of the L hip and IT band syndrome. She had a cortisone injection in the L hip 12/03/19 with pain relief. She also had occasional R hip pain. She was in L hip rehab from 01/01/20 to 02/14/20 with her rehabilitation interrupted due to COVID 19 pandemic. Pt return today for bilateral Trochanteric Bursitis and left IT band tendonitis. Treatment Goals Patient/Caregiver Goals Pt goal is to be able to walk with less hip sway and with a cane. Prior Functional Status Baseline Function- ADL's Independent Baseline Function- Mobility Independent Baseline Function- Gait Walks w/cane & FWW Baseline Function- Recreation/Hobbies Pool ex 3x/week, last time exercised was in 2018 Baseline Function- Other Stairs: Goes backwards descending, ascending 1 step at time. Uses both hands on 1 rail. Current Functional Impairments (Reported) Functional Limitations- ADL's Walking with wobbly hips causing back pain. Functional Limitations- Mobility/Gait Walks with FWW. Functional Limitations- Other 14 stairs going down to basement and 6 stairs going up to outside. Railing on boths sides. Personal Factors Other Personal Factors That May Effect Spouse the pt feels is of Therapy/Recovery declining health Controlled HBP Diabetes II Osteopenia L TKA - 12 yrs ago, R TKA - . Hypothyroid, hx of RBBB PT-OP-C Subjective Start: 06/03/20 18:31 Freq: Status: Active Protocol: Document 08/26/20 09:05 LRN (Rec: 08/26/20 09:49 LRN [id number]) OP-PT Subjective Patient Comments Patient Comments States her back is bothering her a little more. Patient Questionnaires Lower Extremity Functional Scale LEFS Score 57 LEFS Impairment 20 to 39% Impaired (Score 48- 62) PT-OP-E Functional Tests Start: 06/03/20 18:31 Freq: Status: Active Protocol: Document 06/09/20 14:12 SP (Rec: 06/09/20 14:15 SP [id number]) Functional Tests Timed Up and Go (TUG) Score 17.60 sec Comments at risk for falls PT-OP-G Mobility & Gait Start: 06/03/20 18:31 Freq: Status: Active Protocol: Document 06/06/20 12:47 LRN (Rec: 06/06/20 17:10 LRN [id number]) OP Mobility Evaluation Bed Mobility Supine to and from Sit Independent Transfers Sit to Stand Independent OP Gait Assessment Gait Gait Assistance Required: Independent Able to Maintain Weight Bearing Status Yes During Gait Assistive Devices Assistive Device Front Wheeled Walker Gait Deviations General Gait Pattern Flexed Trunk,Narrow Based Gait Factors Limiting Gait Function Factors Limiting Gait Function Decreased Strength,Pain Comments Gait Comments Pt's hips show excessive pelvic lateral shift when weight bearing. Stair Climbing Evaluation Evaluation Level of Assist On Stairs Independent Technique/Endurance Stair Climbing Technique Step to Step Comments Stair Climbing Comments Pt reports her gait pattern has not changed since her last rehab program 01/01/20-02/14. She ambulates up stairs step to step while holding onto one railing. She descends stair by holding onto one railing and going backwards. PT-OP-J Posture/Palpation/Skin Start: 06/03/20 18:31 Freq: Status: Active Protocol: Document 06/06/20 12:47 LRN (Rec: 06/06/20 13:38 LRN [id number]) Posture Evaluation Position Standing Head/C-Spine Posture Forward Head L-Spine Posture Increased Lordosis Pelvis Posture Anteriorly Tilted Weight Distribution Balanced Comments Posture Comments Flexed at hips 15 deg's Palpation Assessment Location R hip Palpation Location Superior to Greater trochanter L hip Palpation Location TFL muscle belly, Superior to Greater trochanter Palpation Findings Tenderness PT-OP-K Range of Motion Start: 06/03/20 18:31 Freq: Status: Active Protocol: Document 06/06/20 12:47 LRN (Rec: 06/06/20 13:38 LRN [id number]) Hip Goniometric Range of Motion Hip Right Passive Testing Position Supine except ext in prone Straight Leg Raise 60 Extension 5 Abduction 25 Internal Rotation 45 External Rotation 60 Left Passive Testing Position Supine except ext in prone Straight Leg Raise 80 Extension 3 Abduction 32 Internal Rotation 60 External Rotation 60 PT-OP-M Strength Start: 06/03/20 18:31 Freq: Status: Active Protocol: Document 07/14/20 09:50 LRN (Rec: 07/14/20 11:15 LRN [id number]) Hip Strength Hip Manual Muscle Testing Right Flexion (L2) 5 Normal Extension (S1) 3 Fair Abduction 2- Poor- Adduction 3- Fair- External Rotation 4 Good Internal Rotation 3+ Fair+ Left Flexion (L2) 5 Normal Extension (S1) 3 Fair Abduction 2- Poor- Adduction 4 Good External Rotation 3+ Fair+ Internal Rotation 3- Fair- PT-OP-Q Treatments Start: 06/03/20 18:31 Freq: Status: Active Protocol: Document 08/26/20 09:05 LRN (Rec: 08/26/20 09:49 LRN [id number]) Therapeutic Exercises Supine Exercises Hip Hike Supine Exercise Name Hip Hike Side bilateral Reps/Minutes 5' Comments Phys & v cuing needed. Not able to activiate R QL ><. Poor core stab Standing Exercises Hip hike Standing Exercise Name Hip Hike Side bilateral Reps/Minutes 10x left, 5x right Comments Left weaker than right PNF patterns for core stab Standing Exercise Name PNF for core stab (kees straight Side bilateral Resistance L2 T-Band Reps/Minutes 15x 2 Comments Needed phys cuing during ex for proper posturing (on end & start) Trunk Flex Standing Exercise Name Trunk Flex Resistance Sport cord w/strap around upper chest Reps/Minutes 30x Comments Phys cuing and stabilizing needed to keep hip flex out of ex. Trunk rot Standing Exercise Name Trunk rot (rotated out more on 1st set of 10) Side bilateral Resistance Lev 3 T-Band, single band Reps/Minutes 10 x 3 Comments phys cuing for hand hold and rot trunk vs arm pulls Hip Ext Standing Exercise Name Hip Ext Side bilateral Resistance Lev 1 TB Reps/Minutes 10 x 3 Comments Some phys & v cuing need to perform ex properly. Hip AB Standing Exercise Name Hip AB & side stepping Side bilateral Resistance Lev 1 T-Band Reps/Minutes 4' Comments Min v. cuing needed to move properly Gait Training Gait Activity Gait with Assist Device Description Gait training 1 and 2 canes Distance/Duration 100' Treatment Focus Stable pelvis/trunk Comments Cane needed on R side > L side . Pt had increased hip sway with 1 sided cane gait. PT-OP-T Assessment and Plan Start: 06/03/20 18:31 Freq: Status: Active Protocol: Document 08/26/20 09:05 [facility] (Rec: 08/26/20 09:49 [facility] [id number]) Physical Therapy Assessment Rehab Potential Rehabilitation Potential Fair Evaluation Complexity Number of Personal Factors/Comorbidities 3 or More Number of Body Systems Impaired 4 or More Clinical Presentation at Evaluation Evolving Impairments Impairments Activity Tolerance,Pain, Posture,ROM,Soft Tissue Mobility,Strength Goals Four Impairment Lacks appropriate HEP [facility] Goal (LTG) Pt will be independent on a self care HEP. LTG Duration 08/30/20 (08/15/20: Progressing) 3 Impairment LEFS score 48/80 (48-62 score is 20-39% impairment) [facility] Goal (LTG) Improve pt function per LEFS of 52 or greater (48-62 score is 20-39% impairment). (08/22/20: LEFS score of 57/80 LTG Duration 08/30/20 (08/22/20: MET GOAL) 2 Impairment decreased Nathan hip strength Short Term Goal (STG) Increase Nathan hip strength 1/2 grade with focus on hip AB ( Initial strength: Flex is 3/5 nathan, Ext is 3+/5 R, 3-/5 L; AB is 2-/5 bilateral; AD is 3-/5 R, 3+/5 L; ER is 4/5 R, 3+/5 L; IR s 3+/5 R, 3-/5 L). (07/14/20: Flex 5/5 nathan; Ext 3 +/5, 3-/5 L; AB is 2-/5 bilateral; AD is 3/5 R, 3+/5 L ; ER is 4/ R, 3 +/5 L; IR is 3 -/5 R, 2+/5 L). STG Duration 08/08/20 (07/14/20: No significant change other than flex is 5/5 nathan) Supply Service Worker Goal (LTG) Increase Nathan hip AB strength to 4/5 to improve functional mobility with gait. LTG Duration 08/30/20 (07/14/20: NOT MET GOAL) 1 Impairment antalgic gait with device Short Term Goal (STG) Patient able to ambulate with minimal limp on level surface with 1-2 canes or walking sticks. (07/03/20: Pt ambs with 2 SPC with minimal hip shift on WBing). STG Duration 07/02/20 (07/03/20: MET GOAL) [facility] Goal (LTG) Patient able to ambulate safely with a cane on level surface outside the home. LTG Duration 08/30/20 (07/14/20: Improved, NOT MET GOAL). Progress Towards Goals Progress Comments Goal #3 MET, as noted last treatment, LEFS score was 57. Assessment Summary Assessment The pt has improved in function per LEFS score and has met goal #3. Today she demonstrates a little more pelvic/trunk sway with gait using one cane, possibly due to increased LBP. Two canes or FWW was needed to walk with normal gait. Her core strength is improving with the pt now able to perform a standing Quadratus Lumborum contraction on the right but not left, indicating improved core stability. The pt asserts she would like to achieve the goal of ambulating with one cane safely. She notes she will sometimes use 1 cane in the house for short periods of time. The pt has been reporting LBP lately with worsening today. Her LBP may hinder her ability to ambulate with a normal gait using one cane. She will need to improve her hip AB strength to safely ambulate with one cane due to her excessive hip sway. If the pt is unable to progress in her strengthening & gait ability then I will work towards placing the pt onto a HEP that she can continue to work towards the [facility] goals. Physical Therapy Plan Frequency and Duration Frequency of Treatment 2x/Week Plan of Care Start Date 08/26/20 Plan of Care End Date 10/25/20 Therapeutic Interventions Therapeutic Interventions Balance Training,Gait Training ,Home Exercise Program,Manual Therapy,Patient/Caregiver Education,Self-Care/Home Management,Soft Tissue Mobilization,Therapeutic Activities,Therapeutic Exercises Modalities Cold Pack/Ice Massage,Electric Stimulation,Hot Packs, Ultrasound Next Visit Focus/Plan Next Note Type Treatment Note Next Visit Plan Progress QL strengthening (R is weaker than L) supine > standing. Progress trunk SB strengthening, R>L. Progress hip AB. Continue core strengthening & cont gait training for transition to cane.
--- NOTE | 2020-08-26 14:39 | PT.OPPOC ---
Physical, Occupational & Speech Therapy At [facility] Current Diagnoses Trochanteric bursitis, right hip (08/26/20) Trochanteric bursitis, left hip (08/26/20) Iliotibial band syndrome, left leg (08/26/20) Visit Care Team Role Provider Type Juli Harrell Primary Care Provider Non-Staff Specialty: Internal Medicine Address: [address] [place] [address], [id number] Email: Ander Billings MD Attending Provider Physician Referring Provider Specialty: Orthopedic Surgery Address: [address] [place] [address], [id number] Email: [email or web address] Plan Of Care PT-OP-T Assessment and Plan Start: 06/03/20 18:31 Freq: Status: Active Protocol: Document 08/26/20 09:05 LRN (Rec: 08/26/20 09:49 LRN [id number]) Physical Therapy Assessment Rehab Potential Rehabilitation Potential Fair Evaluation Complexity Number of Personal Factors/Comorbidities 3 or More Number of Body Systems Impaired 4 or More Clinical Presentation at Evaluation Evolving Impairments Impairments Activity Tolerance,Pain, Posture,ROM,Soft Tissue Mobility,Strength Goals Four Impairment Lacks appropriate HEP Longterm Goal (LTG) Pt will be independent on a self care HEP. LTG Duration 08/30/20 (08/15/20: Progressing) 3 Impairment LEFS score 48/80 (48-62 score is 20-39% impairment) Central Supply Worker Goal (LTG) Improve pt function per LEFS of 52 or greater (48-62 score is 20-39% impairment). (08/22/20: LEFS score of 57/80 LTG Duration 08/30/20 (08/22/20: MET GOAL) 2 Impairment decreased Radha hip strength Short Term Goal (STG) Increase Radha hip strength 1/2 grade with focus on hip AB ( Initial strength: Flex is 3/5 radha, Ext is 3+/5 R, 3-/5 L; AB is 2-/5 bilateral; AD is 3-/5 R, 3+/5 L; ER is 4/5 R, 3+/5 L; IR s 3+/5 R, 3-/5 L). (07/14/20: Flex 5/5 radha; Ext 3 +/5, 3-/5 L; AB is 2-/5 bilateral; AD is 3/5 R, 3+/5 L ; ER is 4/ R, 3 +/5 L; IR is 3 -/5 R, 2+/5 L). STG Duration 08/08/20 (07/14/20: No significant change other than flex is 5/5 radha) Central Supply Worker Goal (LTG) Increase Radha hip AB strength to 4/5 to improve functional mobility with gait. LTG Duration 08/30/20 (07/14/20: NOT MET GOAL) 1 Impairment antalgic gait with device Short Term Goal (STG) Patient able to ambulate with minimal limp on level surface with 1-2 canes or walking sticks. (07/03/20: Pt ambs with 2 SPC with minimal hip shift on WBing). STG Duration 07/02/20 (07/03/20: MET GOAL) Central Supply Worker Goal (LTG) Patient able to ambulate safely with a cane on level surface outside the home. LTG Duration 08/30/20 (07/14/20: Improved, NOT MET GOAL). Progress Towards Goals Progress Comments Goal #3 MET, as noted last treatment, LEFS score was 57. Assessment Summary Assessment The pt has improved in function per LEFS score and has met goal #3. Today she demonstrates a little more pelvic/trunk sway with gait using one cane, possibly due to increased LBP. Two canes or FWW was needed to walk with normal gait. Her core strength is improving with the pt now able to perform a standing Quadratus Lumborum contraction on the right but not left, indicating improved core stability. The pt asserts she would like to achieve the goal of ambulating with one cane safely. She notes she will sometimes use 1 cane in the house for short periods of time. The pt has been reporting LBP lately with worsening today. Her LBP may hinder her ability to ambulate with a normal gait using one cane. She will need to improve her hip AB strength to safely ambulate with one cane due to her excessive hip sway. If the pt is unable to progress in her strengthening & gait ability then I will work towards placing the pt onto a HEP that she can continue to work towards the ch[facility] goals. Physical Therapy Plan Frequency and Duration Frequency of Treatment 2x/Week Plan of Care Start Date 08/26/20 Plan of Care End Date 10/25/20 Therapeutic Interventions Therapeutic Interventions Balance Training,Gait Training ,Home Exercise Program,Manual Therapy,Patient/Caregiver Education,Self-Care/Home Management,Soft Tissue Mobilization,Therapeutic Activities,Therapeutic Exercises Modalities Cold Pack/Ice Massage,Electric Stimulation,Hot Packs, Ultrasound Next Visit Focus/Plan Next Note Type Treatment Note Next Visit Plan Progress QL strengthening (R is weaker than L) supine > standing. Progress trunk SB strengthening, R>L. Progress hip AB. Continue core strengthening & cont gait training for transition to cane. Plan of Care Dates Plan of Care Start Date 08/26/20 Plan of Care End Date 10/25/20 Electronically Signed by: Constanza Harper, PT 08/26/20 [id number] Please Sign and Return: I have reviewed this Plan of Care and certify that the skilled therapy services above are required to meet the patient?s needs. Physician Signature Date Printed Name and Credentials Clinical Instructor Signature Printed Name and Credentials
--- NOTE | 2020-08-29 13:00 | PT.OTN ---
Current Diagnoses Trochanteric bursitis, right hip (08/29/20) Trochanteric bursitis, left hip (08/29/20) Iliotibial band syndrome, left leg (08/29/20) Physical Therapy Treatment Note PT-OP-A Visit Information Start: 06/03/20 18:31 Freq: Status: Active Protocol: Document 08/29/20 09:04 LRN (Rec: 08/29/20 09:48 LRN [id number]) Out-Patient Physical Therapy Visit Information Visit Information Visit Type Treatment Note Visit Start Time 09:04 Visit Stop Time 09:46 Total Visit Minutes 42 Visit Number 21 Evaluation Information Evaluation Date 06/06/20 Precautions Precautions Diabetes II Osteopenia Nathan TKA Bruises easily Hx of RBBB PT-OP-B Current Condition Start: 06/03/20 18:31 Freq: Status: Active Protocol: Document 06/06/20 12:47 LRN (Rec: 06/06/20 13:38 LRN [id number]) Current Condition History of Current Condition Onset Date 10/2019 Current Complaints Nathan hips wobble when walking when not using a walker. History of Current Condition The pt is very familiar to me. She was being seen earily this year for similar diagnosis' prior to the onset of the COVID 19 Pandemic. See developmental history below. Pt is now being referred for bilateral Trochanteric Bursitis and left IT band tendonitis. Pt reports initial onset of bilateral hip pain that started as her knee rehab was ending in Oct. She states her knees are good now. Her problem is her hips. She states they want to wobble . They go from side to side and it is starting to bother her back. Future Testing and Treatments Planned None Developmental History Developmental History Medical Records indicate pt had 4 months of PT after a L knee surgery towards the end of 2018. She had reported trouble walking for over a year. She then had therapy for L trochanteric bursitis of the L hip and IT band syndrome. She had a cortisone injection in the L hip 12/03/19 with pain relief. She also had occasional R hip pain. She was in L hip rehab from 01/01/20 to 02/14/20 with her rehabilitation interrupted due to COVID 19 pandemic. Pt return today for bilateral Trochanteric Bursitis and left IT band tendonitis. Treatment Goals Patient/Caregiver Goals Pt goal is to be able to walk with less hip sway and with a cane. Prior Functional Status Baseline Function- ADL's Independent Baseline Function- Mobility Independent Baseline Function- Gait Walks w/cane & FWW Baseline Function- Recreation/Hobbies Pool ex 3x/week, last time exercised was in 2018 Baseline Function- Other Stairs: Goes backwards descending, ascending 1 step at time. Uses both hands on 1 rail. Current Functional Impairments (Reported) Functional Limitations- ADL's Walking with wobbly hips causing back pain. Functional Limitations- Mobility/Gait Walks with FWW. Functional Limitations- Other 14 stairs going down to basement and 6 stairs going up to outside. Railing on boths sides. Personal Factors Other Personal Factors That May Effect Spouse the pt feels is of Therapy/Recovery declining health Controlled HBP Diabetes II Osteopenia L TKA - 12 yrs ago, R TKA - . Hypothyroid, hx of RBBB PT-OP-C Subjective Start: 06/03/20 18:31 Freq: Status: Active Protocol: Document 08/29/20 09:04 LRN (Rec: 08/29/20 09:48 LRN [id number]) OP-PT Subjective Patient Comments Patient Comments States her back has been bothering her, but she continues to walk. States the exercises do not cause back pain. States she is doing her home exercises. PT-OP-E Functional Tests Start: 06/03/20 18:31 Freq: Status: Active Protocol: Document 06/09/20 14:12 SP (Rec: 06/09/20 14:15 SP [id number]) Functional Tests Timed Up and Go (TUG) Score 17.60 sec Comments at risk for falls PT-OP-G Mobility & Gait Start: 06/03/20 18:31 Freq: Status: Active Protocol: Document 06/06/20 12:47 LRN (Rec: 06/06/20 17:10 LRN [id number]) OP Mobility Evaluation Bed Mobility Supine to and from Sit Independent Transfers Sit to Stand Independent OP Gait Assessment Gait Gait Assistance Required: Independent Able to Maintain Weight Bearing Status Yes During Gait Assistive Devices Assistive Device Front Wheeled Walker Gait Deviations General Gait Pattern Flexed Trunk,Narrow Based Gait Factors Limiting Gait Function Factors Limiting Gait Function Decreased Strength,Pain Comments Gait Comments Pt's hips show excessive pelvic lateral shift when weight bearing. Stair Climbing Evaluation Evaluation Level of Assist On Stairs Independent Technique/Endurance Stair Climbing Technique Step to Step Comments Stair Climbing Comments Pt reports her gait pattern has not changed since her last rehab program 01/01/20-02/14. She ambulates up stairs step to step while holding onto one railing. She descends stair by holding onto one railing and going backwards. PT-OP-J Posture/Palpation/Skin Start: 06/03/20 18:31 Freq: Status: Active Protocol: Document 06/06/20 12:47 LRN (Rec: 06/06/20 13:38 LRN [id number]) Posture Evaluation Position Standing Head/C-Spine Posture Forward Head L-Spine Posture Increased Lordosis Pelvis Posture Anteriorly Tilted Weight Distribution Balanced Comments Posture Comments Flexed at hips 15 deg's Palpation Assessment Location R hip Palpation Location Superior to Greater trochanter L hip Palpation Location TFL muscle belly, Superior to Greater trochanter Palpation Findings Tenderness PT-OP-K Range of Motion Start: 06/03/20 18:31 Freq: Status: Active Protocol: Document 06/06/20 12:47 LRN (Rec: 06/06/20 13:38 LRN [id number]) Hip Goniometric Range of Motion Hip Right Passive Testing Position Supine except ext in prone Straight Leg Raise 60 Extension 5 Abduction 25 Internal Rotation 45 External Rotation 60 Left Passive Testing Position Supine except ext in prone Straight Leg Raise 80 Extension 3 Abduction 32 Internal Rotation 60 External Rotation 60 PT-OP-M Strength Start: 06/03/20 18:31 Freq: Status: Active Protocol: Document 07/14/20 09:50 LRN (Rec: 07/14/20 11:15 LRN [id number]) Hip Strength Hip Manual Muscle Testing Right Flexion (L2) 5 Normal Extension (S1) 3 Fair Abduction 2- Poor- Adduction 3- Fair- External Rotation 4 Good Internal Rotation 3+ Fair+ Left Flexion (L2) 5 Normal Extension (S1) 3 Fair Abduction 2- Poor- Adduction 4 Good External Rotation 3+ Fair+ Internal Rotation 3- Fair- PT-OP-Q Treatments Start: 06/03/20 18:31 Freq: Status: Active Protocol: Document 08/29/20 09:04 LRN (Rec: 08/29/20 09:48 LRN [id number]) Therapeutic Exercises Standing Exercises Side bending Standing Exercise Name Sidebending Side bilateral Resistance Blue sport cord Equipment Used Sport cord w/strap around upper chest Reps/Minutes 6' (10x3) Comments Phys & v. cuing to SB/hands down vs swaying Hip hike Standing Exercise Name Hip Hike Side bilateral Reps/Minutes 4' Comments Pt able to get a hip hike. Not able to hold PNF patterns for core stab Standing Exercise Name PNF for core stab (knees straight) Side bilateral Resistance L2 T-Band Reps/Minutes 15x 2 Comments Needed phys cuing during ex for proper posturing (on end & start) Trunk Flex Standing Exercise Name Trunk Flex Resistance Sport cord w/strap around upper chest Reps/Minutes 15x 2 Comments Phys cuing and stabilizing needed to keep hip flex out of ex. Trunk rot Standing Exercise Name Trunk rot (rotated out more on 1st set of 10) Side bilateral Resistance Lev 3 T-Band, single band Reps/Minutes 15 x 2 Comments phys cuing for hand hold and rot trunk vs arm pulls Gait Training Gait Activity Gait with Assist Device Description Gait w/cane 1 side at time; Hip hike on opposite side of standing leg. Device Used Cane(s) Surface Level Distance/Duration 8' Treatment Focus Preventing excessive hip sway and drop on opposite side. Self-Care/Home Management Treatment Education Patient Education Home Exercise Program Activities Self-Care/Home Management Activities I/S pt to do hip hike holding 5 secs. PT-OP-T Assessment and Plan Start: 06/03/20 18:31 Freq: Status: Active Protocol: Document 08/29/20 09:04 LRN (Rec: 08/29/20 09:48 [facility] [id number]) Physical Therapy Assessment Goals Four Impairment Lacks appropriate HEP Care Home Goal (LTG) Pt will be independent on a self care HEP. LTG Duration 08/30/20 (08/29/20: Progressing) 3 Impairment LEFS score 48/80 (48-62 score is 20-39% impairment) Decker Operator Goal (LTG) Improve pt function per LEFS of 52 or greater (48-62 score is 20-39% impairment). (08/22/20: LEFS score of 57/80 LTG Duration 08/30/20 (08/22/20: MET GOAL) 2 Impairment decreased Nathan hip strength Short Term Goal (STG) Increase Nathan hip strength 1/2 grade with focus on hip AB ( Initial strength: Flex is 3/5 nathan, Ext is 3+/5 R, 3-/5 L; AB is 2-/5 bilateral; AD is 3-/5 R, 3+/5 L; ER is 4/5 R, 3+/5 L; IR s 3+/5 R, 3-/5 L). (07/14/20: Flex 5/5 nathan; Ext 3 +/5, 3-/5 L; AB is 2-/5 bilateral; AD is 3/5 R, 3+/5 L ; ER is 4/ R, 3 +/5 L; IR is 3 -/5 R, 2+/5 L). STG Duration 08/08/20 (07/14/20: No significant change other than flex is 5/5 nathan) Decker Operator Goal (LTG) Increase Nathan hip AB strength to 4/5 to improve functional mobility with gait. LTG Duration 08/30/20 (07/14/20: NOT MET GOAL) 1 Impairment antalgic gait with device Short Term Goal (STG) Patient able to ambulate with minimal limp on level surface with 1-2 canes or walking sticks. (07/03/20: Pt ambs with 2 SPC with minimal hip shift on WBing). STG Duration 07/02/20 (07/03/20: MET GOAL) Care Home Goal (LTG) Patient able to ambulate safely with a cane on level surface outside the home. LTG Duration 08/30/20 (07/14/20: Improved, NOT MET GOAL). Assessment Summary Assessment Pt is able to perform a hip hike bilaterally although weak . She is not able to hold the hip hike > 1 sec. Pt LBP may be hindering her progress in gait. Physical Therapy Plan Frequency and Duration Frequency of Treatment 2x/Week Plan of Care Start Date 08/26/20 Plan of Care End Date 10/25/20 Next Visit Focus/Plan Next Note Type Treatment Note Next Visit Plan Add sitting hip AB/AD strengthening. Progress QL strengthening for holding 5-10 for gait (R is weaker than L ) supine & standing. Progress trunk SB strengthening, R>L. Progress hip AB. Continue core strengthening & cont gait training for transition to cane.
--- NOTE | 2020-09-02 09:57 | PT.OTN ---
Current Diagnoses Trochanteric bursitis, right hip (09/02/20) Trochanteric bursitis, left hip (09/02/20) Iliotibial band syndrome, left leg (09/02/20) Physical Therapy Treatment Note PT-OP-A Visit Information Start: 06/03/20 18:31 Freq: Status: Active Protocol: Document 09/02/20 09:06 LRN (Rec: 09/02/20 09:53 LRN [id number]) Out-Patient Physical Therapy Visit Information Visit Information Visit Type Treatment Note Visit Start Time 09:06 Visit Stop Time 09:46 Total Visit Minutes 40 Visit Number 22 Evaluation Information Evaluation Date 06/06/20 Precautions Precautions Diabetes II Osteopenia Nathan TKA Bruises easily Hx of RBBB PT-OP-B Current Condition Start: 06/03/20 18:31 Freq: Status: Active Protocol: Document 06/06/20 12:47 LRN (Rec: 06/06/20 13:38 LRN [id number]) Current Condition History of Current Condition Onset Date 10/2019 Current Complaints Nathan hips wobble when walking when not using a walker. History of Current Condition The pt is very familiar to me. She was being seen earily this year for similar diagnosis' prior to the onset of the COVID 19 Pandemic. See developmental history below. Pt is now being referred for bilateral Trochanteric Bursitis and left IT band tendonitis. Pt reports initial onset of bilateral hip pain that started as her knee rehab was ending in Oct. She states her knees are good now. Her problem is her hips. She states they want to wobble . They go from side to side and it is starting to bother her back. Future Testing and Treatments Planned None Developmental History Developmental History Medical Records indicate pt had 4 months of PT after a L knee surgery towards the end of 2018. She had reported trouble walking for over a year. She then had therapy for L trochanteric bursitis of the L hip and IT band syndrome. She had a cortisone injection in the L hip 12/03/19 with pain relief. She also had occasional R hip pain. She was in L hip rehab from 01/01/20 to 02/14/20 with her rehabilitation interrupted due to COVID 19 pandemic. Pt return today for bilateral Trochanteric Bursitis and left IT band tendonitis. Treatment Goals Patient/Caregiver Goals Pt goal is to be able to walk with less hip sway and with a cane. Prior Functional Status Baseline Function- ADL's Independent Baseline Function- Mobility Independent Baseline Function- Gait Walks w/cane & FWW Baseline Function- Recreation/Hobbies Pool ex 3x/week, last time exercised was in 2018 Baseline Function- Other Stairs: Goes backwards descending, ascending 1 step at time. Uses both hands on 1 rail. Current Functional Impairments (Reported) Functional Limitations- ADL's Walking with wobbly hips causing back pain. Functional Limitations- Mobility/Gait Walks with FWW. Functional Limitations- Other 14 stairs going down to basement and 6 stairs going up to outside. Railing on boths sides. Personal Factors Other Personal Factors That May Effect Spouse the pt feels is of Therapy/Recovery declining health Controlled HBP Diabetes II Osteopenia L TKA - 12 yrs ago, R TKA - . Hypothyroid, hx of RBBB PT-OP-C Subjective Start: 06/03/20 18:31 Freq: Status: Active Protocol: Document 09/02/20 09:06 LRN (Rec: 09/02/20 09:53 LRN [id number]) OP-PT Subjective Patient Comments Patient Comments Back is pretty good today, pain is 3/10. Stiff in the morining. Still walking about 1hr 15min every day. Walks a little bit inside with 1 cane . PT-OP-E Functional Tests Start: 06/03/20 18:31 Freq: Status: Active Protocol: Document 06/09/20 14:12 SP (Rec: 06/09/20 14:15 SP [id number]) Functional Tests Timed Up and Go (TUG) Score 17.60 sec Comments at risk for falls PT-OP-G Mobility & Gait Start: 06/03/20 18:31 Freq: Status: Active Protocol: Document 06/06/20 12:47 LRN (Rec: 06/06/20 17:10 LRN [id number]) OP Mobility Evaluation Bed Mobility Supine to and from Sit Independent Transfers Sit to Stand Independent OP Gait Assessment Gait Gait Assistance Required: Independent Able to Maintain Weight Bearing Status Yes During Gait Assistive Devices Assistive Device Front Wheeled Walker Gait Deviations General Gait Pattern Flexed Trunk,Narrow Based Gait Factors Limiting Gait Function Factors Limiting Gait Function Decreased Strength,Pain Comments Gait Comments Pt's hips show excessive pelvic lateral shift when weight bearing. Stair Climbing Evaluation Evaluation Level of Assist On Stairs Independent Technique/Endurance Stair Climbing Technique Step to Step Comments Stair Climbing Comments Pt reports her gait pattern has not changed since her last rehab program 01/01/20-02/14. She ambulates up stairs step to step while holding onto one railing. She descends stair by holding onto one railing and going backwards. PT-OP-J Posture/Palpation/Skin Start: 06/03/20 18:31 Freq: Status: Active Protocol: Document 06/06/20 12:47 LRN (Rec: 06/06/20 13:38 LRN [id number]) Posture Evaluation Position Standing Head/C-Spine Posture Forward Head L-Spine Posture Increased Lordosis Pelvis Posture Anteriorly Tilted Weight Distribution Balanced Comments Posture Comments Flexed at hips 15 deg's Palpation Assessment Location R hip Palpation Location Superior to Greater trochanter L hip Palpation Location TFL muscle belly, Superior to Greater trochanter Palpation Findings Tenderness PT-OP-K Range of Motion Start: 06/03/20 18:31 Freq: Status: Active Protocol: Document 06/06/20 12:47 LRN (Rec: 06/06/20 13:38 LRN [id number]) Hip Goniometric Range of Motion Hip Right Passive Testing Position Supine except ext in prone Straight Leg Raise 60 Extension 5 Abduction 25 Internal Rotation 45 External Rotation 60 Left Passive Testing Position Supine except ext in prone Straight Leg Raise 80 Extension 3 Abduction 32 Internal Rotation 60 External Rotation 60 PT-OP-M Strength Start: 06/03/20 18:31 Freq: Status: Active Protocol: Document 07/14/20 09:50 LRN (Rec: 07/14/20 11:15 LRN [id number]) Hip Strength Hip Manual Muscle Testing Right Flexion (L2) 5 Normal Extension (S1) 3 Fair Abduction 2- Poor- Adduction 3- Fair- External Rotation 4 Good Internal Rotation 3+ Fair+ Left Flexion (L2) 5 Normal Extension (S1) 3 Fair Abduction 2- Poor- Adduction 4 Good External Rotation 3+ Fair+ Internal Rotation 3- Fair- PT-OP-Q Treatments Start: 06/03/20 18:31 Freq: Status: Active Protocol: Document 09/02/20 09:06 LRN (Rec: 09/02/20 09:53 N [id number]) Therapeutic Exercises Standing Exercises Side bending Standing Exercise Name Sidebending Side bilateral Resistance Blue sport cord Equipment Used Sport cord w/strap around upper chest Reps/Minutes 6' (10x3) Comments Phys & v. cuing to SB/hands down vs swaying Hip hike Standing Exercise Name Hip Hike Side bilateral Resistance Lev 1 Tband Reps/Minutes 10x 3 each Comments Pt able to get a hip hike. Not able to hold Trunk Flex Standing Exercise Name Trunk Flex Resistance Sport cord w/strap around upper chest Reps/Minutes 15x 2, 10x Comments Phys cuing & stabilizing initially needed to keep hip flex out of ex. Trunk rot Standing Exercise Name Trunk rot (arms crossed over) Side bilateral Resistance Lev 3 T-Band, single band Reps/Minutes 15 x 2 Comments phys cuing Hip Ext Standing Exercise Name Hip Ext Side bilateral Resistance Lev 1 TB Equipment Used // Bars Reps/Minutes 10x 3 Hip AB Standing Exercise Name Hip AB & side stepping Side bilateral Resistance Lev 1 T-Band Equipment Used // Bars Reps/Minutes 3' Comments Min v. cuing needed to move properly Gait Training Gait Activity Gait w/o hip drop Description Gait trng w/1 side support to prevent hip drop on opp side standing leg Device Used // bars, 1 support and ending with no support. Distance/Duration 23' Treatment Focus preventing hip drop. PT-OP-T Assessment and Plan Start: 06/03/20 18:31 Freq: Status: Active Protocol: Document 09/02/20 09:06 LR (Rec: 09/02/20 09:53 [facility] [id number]) Physical Therapy Assessment Goals Four Impairment Lacks appropriate HEP Quality Assurance Nurse Goal (LTG) Pt will be independent on a self care HEP. LTG Duration 08/30/20 (08/29/20: Progressing) 3 Impairment LEFS score 48/80 (48-62 score is 20-39% impairment) Nursing Home Goal (LTG) Improve pt function per LEFS of 52 or greater (48-62 score is 20-39% impairment). (08/22/20: LEFS score of 57/80 LTG Duration 08/30/20 (08/22/20: MET GOAL) 2 Impairment decreased Nathan hip strength Short Term Goal (STG) Increase Nathan hip strength 1/2 grade with focus on hip AB ( Initial strength: Flex is 3/5 nathan, Ext is 3+/5 R, 3-/5 L; AB is 2-/5 bilateral; AD is 3-/5 R, 3+/5 L; ER is 4/5 R, 3+/5 L; IR s 3+/5 R, 3-/5 L). (07/14/20: Flex 5/5 nathan; Ext 3 +/5, 3-/5 L; AB is 2-/5 bilateral; AD is 3/5 R, 3+/5 L ; ER is 4/ R, 3 +/5 L; IR is 3 -/5 R, 2+/5 L). STG Duration 08/08/20 (07/14/20: No significant change other than flex is 5/5 nathan) Quality Assurance Nurse Goal (LTG) Increase Nathan hip AB strength to 4/5 to improve functional mobility with gait. LTG Duration 08/30/20 (07/14/20: NOT MET GOAL) 1 Impairment antalgic gait with device Short Term Goal (STG) Patient able to ambulate with minimal limp on level surface with 1-2 canes or walking sticks. (07/03/20: Pt ambs with 2 SPC with minimal hip shift on WBing). STG Duration 07/02/20 (07/03/20: MET GOAL) Nursing Home Goal (LTG) Patient able to ambulate safely with a cane on level surface outside the home. LTG Duration 08/30/20 (07/14/20: Improved, NOT MET GOAL). Assessment Summary Assessment Pt able to ambulate with cane on R side without hip drop when phys cuing given to L hip during R leg stance phase. Less control of hips with single support of L side. Physical Therapy Plan Frequency and Duration Frequency of Treatment 2x/Week Plan of Care Start Date 08/26/20 Plan of Care End Date 10/25/20 Next Visit Focus/Plan Next Note Type Treatment Note Next Visit Plan Add sitting hip AB/AD strengthening. Progress QL strengthening for holding 5-10 for gait (R is weaker than L ) supine & standing. Progress trunk SB strengthening, R>L. Progress hip AB. Cont gait training for transition to cane.
--- NOTE | 2020-09-05 09:49 | PT.OTN ---
Current Diagnoses Trochanteric bursitis, right hip (09/05/20) Trochanteric bursitis, left hip (09/05/20) Iliotibial band syndrome, left leg (09/05/20) Physical Therapy Treatment Note PT-OP-A Visit Information Start: 06/03/20 18:31 Freq: Status: Active Protocol: Document 09/05/20 09:00 LRN (Rec: 09/05/20 09:48 LRN [id number]) Out-Patient Physical Therapy Visit Information Visit Information Visit Type Treatment Note Visit Start Time 09:00 Visit Stop Time 09:42 Total Visit Minutes 42 Visit Number 23 Evaluation Information Evaluation Date 06/06/20 Precautions Precautions Diabetes II Osteopenia Nathan TKA Bruises easily Hx of RBBB PT-OP-B Current Condition Start: 06/03/20 18:31 Freq: Status: Active Protocol: Document 06/06/20 12:47 LRN (Rec: 06/06/20 13:38 LRN [id number]) Current Condition History of Current Condition Onset Date 10/2019 Current Complaints Nathan hips wobble when walking when not using a walker. History of Current Condition The pt is very familiar to me. She was being seen earily this year for similar diagnosis' prior to the onset of the COVID 19 Pandemic. See developmental history below. Pt is now being referred for bilateral Trochanteric Bursitis and left IT band tendonitis. Pt reports initial onset of bilateral hip pain that started as her knee rehab was ending in Oct. She states her knees are good now. Her problem is her hips. She states they want to wobble . They go from side to side and it is starting to bother her back. Future Testing and Treatments Planned None Developmental History Developmental History Medical Records indicate pt had 4 months of PT after a L knee surgery towards the end of 2018. She had reported trouble walking for over a year. She then had therapy for L trochanteric bursitis of the L hip and IT band syndrome. She had a cortisone injection in the L hip 12/03/19 with pain relief. She also had occasional R hip pain. She was in L hip rehab from 01/01/20 to 02/14/20 with her rehabilitation interrupted due to COVID 19 pandemic. Pt return today for bilateral Trochanteric Bursitis and left IT band tendonitis. Treatment Goals Patient/Caregiver Goals Pt goal is to be able to walk with less hip sway and with a cane. Prior Functional Status Baseline Function- ADL's Independent Baseline Function- Mobility Independent Baseline Function- Gait Walks w/cane & FWW Baseline Function- Recreation/Hobbies Pool ex 3x/week, last time exercised was in 2018 Baseline Function- Other Stairs: Goes backwards descending, ascending 1 step at time. Uses both hands on 1 rail. Current Functional Impairments (Reported) Functional Limitations- ADL's Walking with wobbly hips causing back pain. Functional Limitations- Mobility/Gait Walks with FWW. Functional Limitations- Other 14 stairs going down to basement and 6 stairs going up to outside. Railing on boths sides. Personal Factors Other Personal Factors That May Effect Spouse the pt feels is of Therapy/Recovery declining health Controlled HBP Diabetes II Osteopenia L TKA - 12 yrs ago, R TKA - . Hypothyroid, hx of RBBB PT-OP-C Subjective Start: 06/03/20 18:31 Freq: Status: Active Protocol: Document 09/05/20 09:00 LRN (Rec: 09/05/20 09:48 LRN [id number]) OP-PT Subjective Patient Comments Patient Comments Back pain is 3/10 today. PT-OP-E Functional Tests Start: 06/03/20 18:31 Freq: Status: Active Protocol: Document 06/09/20 14:12 SP (Rec: 06/09/20 14:15 SP [id number]) Functional Tests Timed Up and Go (TUG) Score 17.60 sec Comments at risk for falls PT-OP-G Mobility & Gait Start: 06/03/20 18:31 Freq: Status: Active Protocol: Document 06/06/20 12:47 LRN (Rec: 06/06/20 17:10 LRN [id number]) OP Mobility Evaluation Bed Mobility Supine to and from Sit Independent Transfers Sit to Stand Independent OP Gait Assessment Gait Gait Assistance Required: Independent Able to Maintain Weight Bearing Status Yes During Gait Assistive Devices Assistive Device Front Wheeled Walker Gait Deviations General Gait Pattern Flexed Trunk,Narrow Based Gait Factors Limiting Gait Function Factors Limiting Gait Function Decreased Strength,Pain Comments Gait Comments Pt's hips show excessive pelvic lateral shift when weight bearing. Stair Climbing Evaluation Evaluation Level of Assist On Stairs Independent Technique/Endurance Stair Climbing Technique Step to Step Comments Stair Climbing Comments Pt reports her gait pattern has not changed since her last rehab program 01/01/20-02/14. She ambulates up stairs step to step while holding onto one railing. She descends stair by holding onto one railing and going backwards. PT-OP-J Posture/Palpation/Skin Start: 06/03/20 18:31 Freq: Status: Active Protocol: Document 06/06/20 12:47 LRN (Rec: 06/06/20 13:38 LRN [id number]) Posture Evaluation Position Standing Head/C-Spine Posture Forward Head L-Spine Posture Increased Lordosis Pelvis Posture Anteriorly Tilted Weight Distribution Balanced Comments Posture Comments Flexed at hips 15 deg's Palpation Assessment Location R hip Palpation Location Superior to Greater trochanter L hip Palpation Location TFL muscle belly, Superior to Greater trochanter Palpation Findings Tenderness PT-OP-K Range of Motion Start: 06/03/20 18:31 Freq: Status: Active Protocol: Document 06/06/20 12:47 LRN (Rec: 06/06/20 13:38 LRN [id number]) Hip Goniometric Range of Motion Hip Right Passive Testing Position Supine except ext in prone Straight Leg Raise 60 Extension 5 Abduction 25 Internal Rotation 45 External Rotation 60 Left Passive Testing Position Supine except ext in prone Straight Leg Raise 80 Extension 3 Abduction 32 Internal Rotation 60 External Rotation 60 PT-OP-M Strength Start: 06/03/20 18:31 Freq: Status: Active Protocol: Document 07/14/20 09:50 LRN (Rec: 07/14/20 11:15 LRN [id number]) Hip Strength Hip Manual Muscle Testing Right Flexion (L2) 5 Normal Extension (S1) 3 Fair Abduction 2- Poor- Adduction 3- Fair- External Rotation 4 Good Internal Rotation 3+ Fair+ Left Flexion (L2) 5 Normal Extension (S1) 3 Fair Abduction 2- Poor- Adduction 4 Good External Rotation 3+ Fair+ Internal Rotation 3- Fair- PT-OP-Q Treatments Start: 06/03/20 18:31 Freq: Status: Active Protocol: Document 09/05/20 09:00 LRN (Rec: 09/05/20 09:48 LRN [id number]) Gym Equipment Cable Column (Body Solid) Hip Abduction Details Seat 4 holes Resistance 10# Reps/Time 30x Therapeutic Exercises Standing Exercises PNF patterns for core stab Standing Exercise Name PNF for core stab (knees straight) Side bilateral Resistance L2 T-Band Reps/Minutes 15x 2 Comments Needed phys cuing during ex for proper posturing (on end & start) Trunk Flex Standing Exercise Name Trunk Flex Resistance Blue Sport cord w/strap around upper chest Reps/Minutes 15x 3 Comments Phys cuing & stabilizing initially needed to keep hip flex out of ex. Trunk rot Standing Exercise Name Trunk rot (arms crossed over, body 90 deg from front facing) Side bilateral Resistance Lev 3 T-Band, single band Reps/Minutes 15 x 2 Comments phys cuing Hip Ext Standing Exercise Name Hip Ext Side bilateral Resistance Lev 2 TB Equipment Used // Bars Reps/Minutes 10x Gait Training Gait Activity Gait with Assist Device Description Gait w/cane 1 side at time; doing ip hike on opposite side of standing leg. Device Used Cane(s) Surface Level Distance/Duration 8' Treatment Focus Preventing excessive hip sway and drop on opposite side. PT-OP-T Assessment and Plan Start: 06/03/20 18:31 Freq: Status: Active Protocol: Document 09/05/20 09:00 LRN (Rec: 09/05/20 09:48 LRN [id number]) Physical Therapy Assessment Goals Four Impairment Lacks appropriate HEP Compressor Station Chief Engineer Goal (LTG) Pt will be independent on a self care HEP. LTG Duration 08/30/20 (08/29/20: Progressing) 3 Impairment LEFS score 48/80 (48-62 score is 20-39% impairment) Compressor Station Chief Engineer Goal (LTG) Improve pt function per LEFS of 52 or greater (48-62 score is 20-39% impairment). (08/22/20: LEFS score of 57/80 LTG Duration 08/30/20 (08/22/20: MET GOAL) 2 Impairment decreased Nathan hip strength Short Term Goal (STG) Increase Nathan hip strength 1/2 grade with focus on hip AB ( Initial strength: Flex is 3/5 nathan, Ext is 3+/5 R, 3-/5 L; AB is 2-/5 bilateral; AD is 3-/5 R, 3+/5 L; ER is 4/5 R, 3+/5 L; IR s 3+/5 R, 3-/5 L). (07/14/20: Flex 5/5 nathan; Ext 3 +/5, 3-/5 L; AB is 2-/5 bilateral; AD is 3/5 R, 3+/5 L ; ER is 4/ R, 3 +/5 L; IR is 3 -/5 R, 2+/5 L). STG Duration 08/08/20 (07/14/20: No significant change other than flex is 5/5 nathan) Compressor Station Chief Engineer Goal (LTG) Increase Nathan hip AB strength to 4/5 to improve functional mobility with gait. LTG Duration 08/30/20 (07/14/20: NOT MET GOAL) 1 Impairment antalgic gait with device Short Term Goal (STG) Patient able to ambulate with minimal limp on level surface with 1-2 canes or walking sticks. (07/03/20: Pt ambs with 2 SPC with minimal hip shift on WBing). STG Duration 07/02/20 (07/03/20: MET GOAL) Compressor Station Chief Engineer Goal (LTG) Patient able to ambulate safely with a cane on level surface outside the home. LTG Duration 08/30/20 (07/14/20: Improved, NOT MET GOAL). Progress Towards Goals Progress Comments Gait improved for first 2 steps with SPC use on R. Assessment Summary Assessment Pt able to take first 2 steps with cane on R side without hip drop on left (on R stance phase); therefore gait appears to be getting better. Pt is able to increase resistance with strengthening. Physical Therapy Plan Frequency and Duration Frequency of Treatment 2x/Week Plan of Care Start Date 08/26/20 Plan of Care End Date 10/25/20 Next Visit Focus/Plan Next Note Type Treatment Note Next Visit Plan Add Dual rupali hip AD strengthening & progress hip AB strengthening. Progress QL strengthening for holding 5- 10 for gait (R is weaker than L) supine & standing. Progress trunk SB strengthening, R>L. Progress hip AB. Cont gait training for transition to cane.
--- NOTE | 2020-09-09 09:01 | PT.OTN ---
Current Diagnoses Trochanteric bursitis, right hip (09/09/20) Trochanteric bursitis, left hip (09/09/20) Iliotibial band syndrome, left leg (09/09/20) Physical Therapy Treatment Note PT-OP-A Visit Information Start: 06/03/20 18:31 Freq: Status: Active Protocol: Document 09/09/20 08:13 LRN (Rec: 09/09/20 09:00 LRN [id number]) Out-Patient Physical Therapy Visit Information Visit Information Visit Type Treatment Note Visit Start Time 08:15 Visit Stop Time 08:56 Total Visit Minutes 41 Visit Number 24 Evaluation Information Evaluation Date 06/06/20 Precautions Precautions Diabetes II Osteopenia Nathan TKA Bruises easily Hx of RBBB PT-OP-B Current Condition Start: 06/03/20 18:31 Freq: Status: Active Protocol: Document 06/06/20 12:47 LRN (Rec: 06/06/20 13:38 LRN [id number]) Current Condition History of Current Condition Onset Date 10/2019 Current Complaints Nathan hips wobble when walking when not using a walker. History of Current Condition The pt is very familiar to me. She was being seen earily this year for similar diagnosis' prior to the onset of the COVID 19 Pandemic. See developmental history below. Pt is now being referred for bilateral Trochanteric Bursitis and left IT band tendonitis. Pt reports initial onset of bilateral hip pain that started as her knee rehab was ending in Oct. She states her knees are good now. Her problem is her hips. She states they want to wobble . They go from side to side and it is starting to bother her back. Future Testing and Treatments Planned None Developmental History Developmental History Medical Records indicate pt had 4 months of PT after a L knee surgery towards the end of 2018. She had reported trouble walking for over a year. She then had therapy for L trochanteric bursitis of the L hip and IT band syndrome. She had a cortisone injection in the L hip 12/03/19 with pain relief. She also had occasional R hip pain. She was in L hip rehab from 01/01/20 to 02/14/20 with her rehabilitation interrupted due to COVID 19 pandemic. Pt return today for bilateral Trochanteric Bursitis and left IT band tendonitis. Treatment Goals Patient/Caregiver Goals Pt goal is to be able to walk with less hip sway and with a cane. Prior Functional Status Baseline Function- ADL's Independent Baseline Function- Mobility Independent Baseline Function- Gait Walks w/cane & FWW Baseline Function- Recreation/Hobbies Pool ex 3x/week, last time exercised was in 2018 Baseline Function- Other Stairs: Goes backwards descending, ascending 1 step at time. Uses both hands on 1 rail. Current Functional Impairments (Reported) Functional Limitations- ADL's Walking with wobbly hips causing back pain. Functional Limitations- Mobility/Gait Walks with FWW. Functional Limitations- Other 14 stairs going down to basement and 6 stairs going up to outside. Railing on boths sides. Personal Factors Other Personal Factors That May Effect Spouse the pt feels is of Therapy/Recovery declining health Controlled HBP Diabetes II Osteopenia L TKA - 12 yrs ago, R TKA - . Hypothyroid, hx of RBBB PT-OP-C Subjective Start: 06/03/20 18:31 Freq: Status: Active Protocol: Document 09/09/20 08:13 LRN (Rec: 09/09/20 09:00 LRN [id number]) OP-PT Subjective Patient Comments Patient Comments States she is walking still with walker although weather is bad. PT-OP-E Functional Tests Start: 06/03/20 18:31 Freq: Status: Active Protocol: Document 09/09/20 08:13 LRN (Rec: 09/09/20 09:00 LRN [id number]) Functional Tests Timed Up and Go (TUG) Score 29 secs Cane R; 32 secs Cane L . Comments Cane, used hand/cane to stand up TUG Impairment Rating 100% Impaired (Score 20) PT-OP-G Mobility & Gait Start: 06/03/20 18:31 Freq: Status: Active Protocol: Document 06/06/20 12:47 LRN (Rec: 06/06/20 17:10 LRN [id number]) OP Mobility Evaluation Bed Mobility Supine to and from Sit Independent Transfers Sit to Stand Independent OP Gait Assessment Gait Gait Assistance Required: Independent Able to Maintain Weight Bearing Status Yes During Gait Assistive Devices Assistive Device Front Wheeled Walker Gait Deviations General Gait Pattern Flexed Trunk,Narrow Based Gait Factors Limiting Gait Function Factors Limiting Gait Function Decreased Strength,Pain Comments Gait Comments Pt's hips show excessive pelvic lateral shift when weight bearing. Stair Climbing Evaluation Evaluation Level of Assist On Stairs Independent Technique/Endurance Stair Climbing Technique Step to Step Comments Stair Climbing Comments Pt reports her gait pattern has not changed since her last rehab program 01/01/20-02/14. She ambulates up stairs step to step while holding onto one railing. She descends stair by holding onto one railing and going backwards. PT-OP-J Posture/Palpation/Skin Start: 06/03/20 18:31 Freq: Status: Active Protocol: Document 06/06/20 12:47 LRN (Rec: 06/06/20 13:38 LRN [id number]) Posture Evaluation Position Standing Head/C-Spine Posture Forward Head L-Spine Posture Increased Lordosis Pelvis Posture Anteriorly Tilted Weight Distribution Balanced Comments Posture Comments Flexed at hips 15 deg's Palpation Assessment Location R hip Palpation Location Superior to Greater trochanter L hip Palpation Location TFL muscle belly, Superior to Greater trochanter Palpation Findings Tenderness PT-OP-K Range of Motion Start: 06/03/20 18:31 Freq: Status: Active Protocol: Document 06/06/20 12:47 LRN (Rec: 06/06/20 13:38 LRN [id number]) Hip Goniometric Range of Motion Hip Right Passive Testing Position Supine except ext in prone Straight Leg Raise 60 Extension 5 Abduction 25 Internal Rotation 45 External Rotation 60 Left Passive Testing Position Supine except ext in prone Straight Leg Raise 80 Extension 3 Abduction 32 Internal Rotation 60 External Rotation 60 PT-OP-M Strength Start: 06/03/20 18:31 Freq: Status: Active Protocol: Document 07/14/20 09:50 LRN (Rec: 07/14/20 11:15 LRN [id number]) Hip Strength Hip Manual Muscle Testing Right Flexion (L2) 5 Normal Extension (S1) 3 Fair Abduction 2- Poor- Adduction 3- Fair- External Rotation 4 Good Internal Rotation 3+ Fair+ Left Flexion (L2) 5 Normal Extension (S1) 3 Fair Abduction 2- Poor- Adduction 4 Good External Rotation 3+ Fair+ Internal Rotation 3- Fair- PT-OP-Q Treatments Start: 06/03/20 18:31 Freq: Status: Active Protocol: Document 09/09/20 08:13 LRN (Rec: 09/09/20 09:00 LRN [id number]) Gym Equipment Cable Column (Body Solid) Hip Adduction Details Seat 4 holes Resistance 10# Reps/Time 15x Hip Abduction Details Seat 4 holes Resistance 20# Reps/Time 30x Therapeutic Exercises Standing Exercises Side bending Standing Exercise Name Sidebending Side bilateral Resistance Blue sport cord Equipment Used Sport cord w/strap around upper chest Reps/Minutes 6' (10x3) Comments Phys & v. cuing to SB/hands down vs swaying PNF patterns for core stab Standing Exercise Name PNF for core stab (knees straight) Side bilateral Resistance L2 T-Band Reps/Minutes 15x 2 Comments Needed phys cuing during ex for proper posturing (on end & start) Trunk Flex Standing Exercise Name Trunk Flex Resistance Blue Sport cord w/strap around upper chest Reps/Minutes 15x 3 Comments Phys cuing & stabilizing initially needed to keep hip flex out of ex. Trunk rot Standing Exercise Name Trunk rot (arms crossed over, body 90 deg from front facing) Side bilateral Resistance Lev 3 T-Band, single band Reps/Minutes 15 x 2 Comments phys cuing Gait Training Gait Activity Gait w/o hip drop Description Gait trng w/1 side support to prevent hip drop on opp side standing leg Device Used // bars, 1 support and ending with no support. Distance/Duration 8' Treatment Focus preventing hip drop. Comments Additional Gait training 3' with cane for 10ft walks x 6. PT-OP-T Assessment and Plan Start: 06/03/20 18:31 Freq: Status: Active Protocol: Document 09/09/20 08:13 MG (Rec: 09/09/20 09:00 [facility] [id number]) Physical Therapy Assessment Goals Four Impairment Lacks appropriate HEP Cobbler Upper Goal (LTG) Pt will be independent on a self care HEP. LTG Duration 08/30/20 (08/29/20: Progressing) 3 Impairment LEFS score 48/80 (48-62 score is 20-39% impairment) Cobbler Upper Goal (LTG) Improve pt function per LEFS of 52 or greater (48-62 score is 20-39% impairment). (08/22/20: LEFS score of 57/80 LTG Duration 08/30/20 (08/22/20: MET GOAL) 2 Impairment decreased Nathan hip strength Short Term Goal (STG) Increase Nathan hip strength 1/2 grade with focus on hip AB ( Initial strength: Flex is 3/5 nathan, Ext is 3+/5 R, 3-/5 L; AB is 2-/5 bilateral; AD is 3-/5 R, 3+/5 L; ER is 4/5 R, 3+/5 L; IR s 3+/5 R, 3-/5 L). (07/14/20: Flex 5/5 nathan; Ext 3 +/5, 3-/5 L; AB is 2-/5 bilateral; AD is 3/5 R, 3+/5 L ; ER is 4/ R, 3 +/5 L; IR is 3 -/5 R, 2+/5 L). STG Duration 08/08/20 (07/14/20: No significant change other than flex is 5/5 nathan) Intermediate Goal (LTG) Increase Nathan hip AB strength to 4/5 to improve functional mobility with gait. LTG Duration 08/30/20 (07/14/20: NOT MET GOAL) 1 Impairment antalgic gait with device Short Term Goal (STG) Patient able to ambulate with minimal limp on level surface with 1-2 canes or walking sticks. (07/03/20: Pt ambs with 2 SPC with minimal hip shift on WBing). STG Duration 07/02/20 (07/03/20: MET GOAL) Intermediate Goal (LTG) Patient able to ambulate safely with a cane on level surface outside the home. LTG Duration 08/30/20 (07/14/20: Improved, NOT MET GOAL). Assessment Summary Assessment Pt able to do hip AB/AD ex without complaints on Dual Jeanette. Pt 100% impaired per SPC gait, per TUG score of 29 sec (cane R) & 32 secs (cane L ). Pt hip drop with gait w/o support appears improved for the first 1-2 steps and wgt on hip helps with phys cuing to keep hip elevated. Physical Therapy Plan Frequency and Duration Frequency of Treatment 2x/Week Plan of Care Start Date 08/26/20 Plan of Care End Date 10/25/20 Next Visit Focus/Plan Next Note Type Treatment Note Next Visit Plan Progress QL strengthening for holding 5-10 for gait (R is weaker than L) supine & standing. Progress trunk SB strengthening, R>L. Progress hip AB. Cont gait training for transition to cane.
--- NOTE | 2020-09-12 16:02 | PT.OTN ---
Current Diagnoses Trochanteric bursitis, right hip (09/12/20) Trochanteric bursitis, left hip (09/12/20) Iliotibial band syndrome, left leg (09/12/20) Physical Therapy Treatment Note PT-OP-A Visit Information Start: 06/03/20 18:31 Freq: Status: Active Protocol: Document 09/12/20 10:36 LRN (Rec: 09/12/20 11:21 LRN [id number]) Out-Patient Physical Therapy Visit Information Visit Information Visit Type Treatment Note Visit Start Time 10:36 Visit Stop Time 11:19 Total Visit Minutes 43 Visit Number 25 Evaluation Information Evaluation Date 06/06/20 Precautions Precautions Diabetes II Osteopenia Nathan TKA Bruises easily Hx of RBBB PT-OP-B Current Condition Start: 06/03/20 18:31 Freq: Status: Active Protocol: Document 06/06/20 12:47 LRN (Rec: 06/06/20 13:38 LRN [id number]) Current Condition History of Current Condition Onset Date 10/2019 Current Complaints Nathan hips wobble when walking when not using a walker. History of Current Condition The pt is very familiar to me. She was being seen earily this year for similar diagnosis' prior to the onset of the COVID 19 Pandemic. See developmental history below. Pt is now being referred for bilateral Trochanteric Bursitis and left IT band tendonitis. Pt reports initial onset of bilateral hip pain that started as her knee rehab was ending in Oct. She states her knees are good now. Her problem is her hips. She states they want to wobble . They go from side to side and it is starting to bother her back. Future Testing and Treatments Planned None Developmental History Developmental History Medical Records indicate pt had 4 months of PT after a L knee surgery towards the end of 2018. She had reported trouble walking for over a year. She then had therapy for L trochanteric bursitis of the L hip and IT band syndrome. She had a cortisone injection in the L hip 12/03/19 with pain relief. She also had occasional R hip pain. She was in L hip rehab from 01/01/20 to 02/14/20 with her rehabilitation interrupted due to COVID 19 pandemic. Pt return today for bilateral Trochanteric Bursitis and left IT band tendonitis. Treatment Goals Patient/Caregiver Goals Pt goal is to be able to walk with less hip sway and with a cane. Prior Functional Status Baseline Function- ADL's Independent Baseline Function- Mobility Independent Baseline Function- Gait Walks w/cane & FWW Baseline Function- Recreation/Hobbies Pool ex 3x/week, last time exercised was in 2018 Baseline Function- Other Stairs: Goes backwards descending, ascending 1 step at time. Uses both hands on 1 rail. Current Functional Impairments (Reported) Functional Limitations- ADL's Walking with wobbly hips causing back pain. Functional Limitations- Mobility/Gait Walks with FWW. Functional Limitations- Other 14 stairs going down to basement and 6 stairs going up to outside. Railing on boths sides. Personal Factors Other Personal Factors That May Effect Spouse the pt feels is of Therapy/Recovery declining health Controlled HBP Diabetes II Osteopenia L TKA - 12 yrs ago, R TKA - . Hypothyroid, hx of RBBB PT-OP-C Subjective Start: 06/03/20 18:31 Freq: Status: Active Protocol: Document 09/12/20 10:36 LRN (Rec: 09/12/20 11:21 LRN [id number]) OP-PT Subjective Patient Comments Patient Comments States she has been working on walking real straight. Practicing with 1-2 canes in house. PT-OP-E Functional Tests Start: 06/03/20 18:31 Freq: Status: Active Protocol: Document 09/09/20 08:13 LRN (Rec: 09/09/20 09:00 LRN [id number]) Functional Tests Timed Up and Go (TUG) Score 29 secs Cane R; 32 secs Cane L . Comments Cane, used hand/cane to stand up TUG Impairment Rating 100% Impaired (Score 20) PT-OP-G Mobility & Gait Start: 06/03/20 18:31 Freq: Status: Active Protocol: Document 06/06/20 12:47 LRN (Rec: 06/06/20 17:10 LRN [id number]) OP Mobility Evaluation Bed Mobility Supine to and from Sit Independent Transfers Sit to Stand Independent OP Gait Assessment Gait Gait Assistance Required: Independent Able to Maintain Weight Bearing Status Yes During Gait Assistive Devices Assistive Device Front Wheeled Walker Gait Deviations General Gait Pattern Flexed Trunk,Narrow Based Gait Factors Limiting Gait Function Factors Limiting Gait Function Decreased Strength,Pain Comments Gait Comments Pt's hips show excessive pelvic lateral shift when weight bearing. Stair Climbing Evaluation Evaluation Level of Assist On Stairs Independent Technique/Endurance Stair Climbing Technique Step to Step Comments Stair Climbing Comments Pt reports her gait pattern has not changed since her last rehab program 01/01/20-02/14. She ambulates up stairs step to step while holding onto one railing. She descends stair by holding onto one railing and going backwards. PT-OP-J Posture/Palpation/Skin Start: 06/03/20 18:31 Freq: Status: Active Protocol: Document 06/06/20 12:47 LRN (Rec: 06/06/20 13:38 LRN [id number]) Posture Evaluation Position Standing Head/C-Spine Posture Forward Head L-Spine Posture Increased Lordosis Pelvis Posture Anteriorly Tilted Weight Distribution Balanced Comments Posture Comments Flexed at hips 15 deg's Palpation Assessment Location R hip Palpation Location Superior to Greater trochanter L hip Palpation Location TFL muscle belly, Superior to Greater trochanter Palpation Findings Tenderness PT-OP-K Range of Motion Start: 06/03/20 18:31 Freq: Status: Active Protocol: Document 06/06/20 12:47 LRN (Rec: 06/06/20 13:38 LRN [id number]) Hip Goniometric Range of Motion Hip Right Passive Testing Position Supine except ext in prone Straight Leg Raise 60 Extension 5 Abduction 25 Internal Rotation 45 External Rotation 60 Left Passive Testing Position Supine except ext in prone Straight Leg Raise 80 Extension 3 Abduction 32 Internal Rotation 60 External Rotation 60 PT-OP-M Strength Start: 06/03/20 18:31 Freq: Status: Active Protocol: Document 07/14/20 09:50 LRN (Rec: 07/14/20 11:15 LRN [id number]) Hip Strength Hip Manual Muscle Testing Right Flexion (L2) 5 Normal Extension (S1) 3 Fair Abduction 2- Poor- Adduction 3- Fair- External Rotation 4 Good Internal Rotation 3+ Fair+ Left Flexion (L2) 5 Normal Extension (S1) 3 Fair Abduction 2- Poor- Adduction 4 Good External Rotation 3+ Fair+ Internal Rotation 3- Fair- PT-OP-Q Treatments Start: 06/03/20 18:31 Freq: Status: Active Protocol: Document 09/12/20 10:36 LRN (Rec: 09/12/20 11:21 LRN [id number]) Gym Equipment Cable Column (Body Solid) Hip Adduction Details Seat 4 holes Resistance 10# Reps/Time 30x, Extra time for set up and phys/v cuing Hip Abduction Details Seat 4 holes Resistance 20# Reps/Time 30x Therapeutic Exercises Standing Exercises Side bending Standing Exercise Name Sidebending Side bilateral Resistance Blue sport cord Equipment Used Sport cord w/strap around upper chest Reps/Minutes 6' (10x3) Comments Phys & v. cuing to SB/hands down vs swaying Hip hike Standing Exercise Name Hip Hike holding 10 secs Side bilateral Reps/Minutes 8' Comments Phys cuing throughout ex PNF patterns for core stab Standing Exercise Name PNF for core stab (knees straight) Side bilateral Resistance L2 T-Band Reps/Minutes 15x 2, 10x Comments Needed phys cuing during ex for proper posturing (@ start) Trunk Flex Standing Exercise Name Trunk Flex Resistance Blue Sport cord w/strap around upper chest Reps/Minutes 15x 3 Comments Phys cuing & stabilizing initially needed to keep hip flex out of ex. Trunk rot Standing Exercise Name Trunk rot (arms crossed over, body 90 deg from front facing) Side bilateral Resistance Lev 3 T-Band, single band Reps/Minutes 15 x 2, 10x Comments phys cuing Gait Training Gait Activity Gait with Assist Device Description Gait w/cane 1 side at time; doing ip hike on opposite side of standing leg. Device Used Cane(s) Level of Assistance CGA w/gait belt Surface Level Distance/Duration 15' Treatment Focus Preventing excessive hip sway and drop on opposite side. Comments 2# wgt on side of hip for resistance to hip hike. PT-OP-T Assessment and Plan Start: 06/03/20 18:31 Freq: Status: Active Protocol: Document 09/12/20 10:36 LRN (Rec: 09/12/20 11:21 LRN [id number]) Physical Therapy Assessment Goals Four Impairment Lacks appropriate HEP Fpc Goal (LTG) Pt will be independent on a self care HEP. LTG Duration 08/30/20 (08/29/20: Progressing) 2 Impairment decreased Nathan hip strength Short Term Goal (STG) Increase Nathan hip strength 1/2 grade with focus on hip AB ( Initial strength: Flex is 3/5 nathan, Ext is 3+/5 R, 3-/5 L; AB is 2-/5 bilateral; AD is 3-/5 R, 3+/5 L; ER is 4/5 R, 3+/5 L; IR s 3+/5 R, 3-/5 L). (07/14/20: Flex 5/5 nathan; Ext 3 +/5, 3-/5 L; AB is 2-/5 bilateral; AD is 3/5 R, 3+/5 L ; ER is 4/ R, 3 +/5 L; IR is 3 -/5 R, 2+/5 L). STG Duration 08/08/20 (07/14/20: No significant change other than flex is 5/5 nathan) Fpc Goal (LTG) Increase Nathan hip AB strength to 4/5 to improve functional mobility with gait. LTG Duration 08/30/20 (07/14/20: NOT MET GOAL) 1 Impairment antalgic gait with device Short Term Goal (STG) Patient able to ambulate with minimal limp on level surface with 1-2 canes or walking sticks. (07/03/20: Pt ambs with 2 SPC with minimal hip shift on WBing). STG Duration 07/02/20 (07/03/20: MET GOAL) Fpc Goal (LTG) Patient able to ambulate safely with a cane on level surface outside the home. LTG Duration 08/30/20 (07/14/20: Improved, NOT MET GOAL). Progress Towards Goals Progress Comments Multiple steps with fair hip positioning (minimal hip drop) with physical cuing. Assessment Summary Assessment Pt gait appears to be improving with less hip sway when physical cuing is given for multiple steps, very encouraging. Pt needs a lot of physical cuing with hip ex' s. Physical Therapy Plan Frequency and Duration Frequency of Treatment 2x/Week Plan of Care Start Date 08/26/20 Plan of Care End Date 10/25/20 Next Visit Focus/Plan Next Note Type Treatment Note Next Visit Plan Recheck hip strength. Progress QL strengthening for holding 5-10 for gait (R is weaker than L) supine & standing. Progress trunk SB strengthening, R>L. Progress hip AB. Cont gait training for transition to cane.
--- NOTE | 2020-09-16 14:21 | PT.OTN ---
Current Diagnoses Trochanteric bursitis, right hip (09/16/20) Trochanteric bursitis, left hip (09/16/20) Iliotibial band syndrome, left leg (09/16/20) Physical Therapy Treatment Note PT-OP-A Visit Information Start: 06/03/20 18:31 Freq: Status: Active Protocol: Document 09/16/20 13:37 LRN (Rec: 09/16/20 14:21 LRN [id number]) Out-Patient Physical Therapy Visit Information Visit Information Visit Type Treatment Note Visit Start Time 13:37 Visit Stop Time 14:15 Total Visit Minutes 38 Visit Number 26 Evaluation Information Evaluation Date 06/06/20 Precautions Precautions Diabetes II Osteopenia Nathan TKA Bruises easily Hx of RBBB PT-OP-B Current Condition Start: 06/03/20 18:31 Freq: Status: Active Protocol: Document 06/06/20 12:47 LRN (Rec: 06/06/20 13:38 LRN [id number]) Current Condition History of Current Condition Onset Date 10/2019 Current Complaints Nathan hips wobble when walking when not using a walker. History of Current Condition The pt is very familiar to me. She was being seen earily this year for similar diagnosis' prior to the onset of the COVID 19 Pandemic. See developmental history below. Pt is now being referred for bilateral Trochanteric Bursitis and left IT band tendonitis. Pt reports initial onset of bilateral hip pain that started as her knee rehab was ending in Oct. She states her knees are good now. Her problem is her hips. She states they want to wobble . They go from side to side and it is starting to bother her back. Future Testing and Treatments Planned None Developmental History Developmental History Medical Records indicate pt had 4 months of PT after a L knee surgery towards the end of 2018. She had reported trouble walking for over a year. She then had therapy for L trochanteric bursitis of the L hip and IT band syndrome. She had a cortisone injection in the L hip 12/03/19 with pain relief. She also had occasional R hip pain. She was in L hip rehab from 01/01/20 to 02/14/20 with her rehabilitation interrupted due to COVID 19 pandemic. Pt return today for bilateral Trochanteric Bursitis and left IT band tendonitis. Treatment Goals Patient/Caregiver Goals Pt goal is to be able to walk with less hip sway and with a cane. Prior Functional Status Baseline Function- ADL's Independent Baseline Function- Mobility Independent Baseline Function- Gait Walks w/cane & FWW Baseline Function- Recreation/Hobbies Pool ex 3x/week, last time exercised was in 2018 Baseline Function- Other Stairs: Goes backwards descending, ascending 1 step at time. Uses both hands on 1 rail. Current Functional Impairments (Reported) Functional Limitations- ADL's Walking with wobbly hips causing back pain. Functional Limitations- Mobility/Gait Walks with FWW. Functional Limitations- Other 14 stairs going down to basement and 6 stairs going up to outside. Railing on boths sides. Personal Factors Other Personal Factors That May Effect Spouse the pt feels is of Therapy/Recovery declining health Controlled HBP Diabetes II Osteopenia L TKA - 12 yrs ago, R TKA - . Hypothyroid, hx of RBBB PT-OP-C Subjective Start: 06/03/20 18:31 Freq: Status: Active Protocol: Document 09/16/20 13:37 LRN (Rec: 09/16/20 14:21 LRN [id number]) OP-PT Subjective Patient Comments Patient Comments Walking in kitchen with 2 canes. PT-OP-E Functional Tests Start: 06/03/20 18:31 Freq: Status: Active Protocol: Document 09/09/20 08:13 LRN (Rec: 09/09/20 09:00 LRN [id number]) Functional Tests Timed Up and Go (TUG) Score 29 secs Cane R; 32 secs Cane L . Comments Cane, used hand/cane to stand up TUG Impairment Rating 100% Impaired (Score 20) PT-OP-G Mobility & Gait Start: 06/03/20 18:31 Freq: Status: Active Protocol: Document 06/06/20 12:47 LRN (Rec: 06/06/20 17:10 LRN [id number]) OP Mobility Evaluation Bed Mobility Supine to and from Sit Independent Transfers Sit to Stand Independent OP Gait Assessment Gait Gait Assistance Required: Independent Able to Maintain Weight Bearing Status Yes During Gait Assistive Devices Assistive Device Front Wheeled Walker Gait Deviations General Gait Pattern Flexed Trunk,Narrow Based Gait Factors Limiting Gait Function Factors Limiting Gait Function Decreased Strength,Pain Comments Gait Comments Pt's hips show excessive pelvic lateral shift when weight bearing. Stair Climbing Evaluation Evaluation Level of Assist On Stairs Independent Technique/Endurance Stair Climbing Technique Step to Step Comments Stair Climbing Comments Pt reports her gait pattern has not changed since her last rehab program 01/01/20-02/14. She ambulates up stairs step to step while holding onto one railing. She descends stair by holding onto one railing and going backwards. PT-OP-J Posture/Palpation/Skin Start: 06/03/20 18:31 Freq: Status: Active Protocol: Document 06/06/20 12:47 LRN (Rec: 06/06/20 13:38 LRN [id number]) Posture Evaluation Position Standing Head/C-Spine Posture Forward Head L-Spine Posture Increased Lordosis Pelvis Posture Anteriorly Tilted Weight Distribution Balanced Comments Posture Comments Flexed at hips 15 deg's Palpation Assessment Location R hip Palpation Location Superior to Greater trochanter L hip Palpation Location TFL muscle belly, Superior to Greater trochanter Palpation Findings Tenderness PT-OP-K Range of Motion Start: 06/03/20 18:31 Freq: Status: Active Protocol: Document 06/06/20 12:47 LRN (Rec: 06/06/20 13:38 LRN [id number]) Hip Goniometric Range of Motion Hip Right Passive Testing Position Supine except ext in prone Straight Leg Raise 60 Extension 5 Abduction 25 Internal Rotation 45 External Rotation 60 Left Passive Testing Position Supine except ext in prone Straight Leg Raise 80 Extension 3 Abduction 32 Internal Rotation 60 External Rotation 60 PT-OP-M Strength Start: 06/03/20 18:31 Freq: Status: Active Protocol: Document 07/14/20 09:50 LRN (Rec: 07/14/20 11:15 LRN [id number]) Hip Strength Hip Manual Muscle Testing Right Flexion (L2) 5 Normal Extension (S1) 3 Fair Abduction 2- Poor- Adduction 3- Fair- External Rotation 4 Good Internal Rotation 3+ Fair+ Left Flexion (L2) 5 Normal Extension (S1) 3 Fair Abduction 2- Poor- Adduction 4 Good External Rotation 3+ Fair+ Internal Rotation 3- Fair- PT-OP-Q Treatments Start: 06/03/20 18:31 Freq: Status: Active Protocol: Document 09/16/20 13:37 LRN (Rec: 09/16/20 14:21 LRN [id number]) Gym Equipment Cable Column (Body Solid) Hip Adduction Details Seat 4 holes Resistance 10# Reps/Time 30x, Extra time for set up and phys/v cuing Hip Abduction Details Seat 4 holes Resistance 20# Reps/Time 30x Therapeutic Exercises Standing Exercises Side bending Standing Exercise Name Sidebending Side bilateral Resistance Blue sport cord Equipment Used Sport cord w/strap around upper chest Reps/Minutes 6' (10x3) Comments Phys & v. cuing to SB/hands down vs swaying Hip hike Standing Exercise Name Hip Hike holding 1-5 secs Side bilateral Reps/Minutes 4' Comments Phys cuing throughout ex PNF patterns for core stab Standing Exercise Name PNF for core stab (knees straight) Side bilateral Resistance L2 T-Band Reps/Minutes 15x 3 Comments Needed phys cuing during ex for proper posturing (@ start) Trunk Flex Standing Exercise Name Trunk Flex Resistance Blue Sport cord w/strap around upper chest Reps/Minutes 15x 3 Comments Phys cuing & stabilizing initially needed to keep hip flex out of ex. Trunk rot Standing Exercise Name Trunk rot (arms crossed over, body 90 deg from front facing) Side bilateral Resistance Lev 3 T-Band, single band Reps/Minutes 15 x 3 Comments phys cuing Gait Training Gait Activity Gait w/o hip drop Description Gait trng w/1 side support to prevent hip drop on opp side standing leg Device Used // bars, 1 support and ending with no support. Distance/Duration 15' Treatment Focus preventing hip drop. Comments Focus at end: Front/Back stepping with R LE. PT-OP-T Assessment and Plan Start: 06/03/20 18:31 Freq: Status: Active Protocol: Document 09/16/20 13:37 LRN (Rec: 09/16/20 14:21 LRN [id number]) Physical Therapy Assessment Goals Four Impairment Lacks appropriate HEP Fdc Goal (LTG) Pt will be independent on a self care HEP. LTG Duration 08/30/20 (08/29/20: Progressing) 2 Impairment decreased Nathan hip strength Short Term Goal (STG) Increase Nathan hip strength 1/2 grade with focus on hip AB ( Initial strength: Flex is 3/5 nathan, Ext is 3+/5 R, 3-/5 L; AB is 2-/5 bilateral; AD is 3-/5 R, 3+/5 L; ER is 4/5 R, 3+/5 L; IR s 3+/5 R, 3-/5 L). (07/14/20: Flex 5/5 nathan; Ext 3 +/5, 3-/5 L; AB is 2-/5 bilateral; AD is 3/5 R, 3+/5 L ; ER is 4/ R, 3 +/5 L; IR is 3 -/5 R, 2+/5 L). STG Duration 08/08/20 (07/14/20: No significant change other than flex is 5/5 nathan) Fdc Goal (LTG) Increase Nathan hip AB strength to 4/5 to improve functional mobility with gait. LTG Duration 08/30/20 (07/14/20: NOT MET GOAL) 1 Impairment antalgic gait with device Short Term Goal (STG) Patient able to ambulate with minimal limp on level surface with 1-2 canes or walking sticks. (07/03/20: Pt ambs with 2 SPC with minimal hip shift on WBing). STG Duration 07/02/20 (07/03/20: MET GOAL) [employer] Goal (LTG) Patient able to ambulate safely with a cane on level surface outside the home. LTG Duration 08/30/20 (07/14/20: Improved, NOT MET GOAL). Assessment Summary Assessment Pt was able to control hip drop x 2 with SLS on LLE during R swing through phase. Stepping forward with R leg causes R hip to drop that seems due to weak L hip TFL/ Hip AB. Physical Therapy Plan Frequency and Duration Frequency of Treatment 2x/Week Plan of Care Start Date 08/26/20 Plan of Care End Date 10/25/20 Next Visit Focus/Plan Next Note Type Treatment Note Next Visit Plan Recheck hip strength. Check QL strengthening for holding 5 , progressing to 10 for gait (R is weaker than L) supine & standing. Progress trunk SB strengthening, R>L. Progress hip AB. Cont gait training for transition to cane.
--- NOTE | 2020-09-19 09:00 | PT.OTN ---
Current Diagnoses Trochanteric bursitis, right hip (09/19/20) Trochanteric bursitis, left hip (09/19/20) Iliotibial band syndrome, left leg (09/19/20) Physical Therapy Treatment Note PT-OP-A Visit Information Start: 06/03/20 18:31 Freq: Status: Active Protocol: Document 09/19/20 08:19 SP (Rec: 09/19/20 09:02 SP [id number]) Out-Patient Physical Therapy Visit Information Visit Information Visit Type Treatment Note Visit Start Time 08:19 Visit Stop Time 09:00 Total Visit Minutes 41 Visit Number 27 Number of ENAMEL DIPPER Visits 1 PT-OP-B Current Condition Start: 06/03/20 18:31 Freq: Status: Active Protocol: Document 06/06/20 12:47 LRN (Rec: 06/06/20 13:38 LRN [id number]) Current Condition History of Current Condition Onset Date 10/2019 Current Complaints Nathan hips wobble when walking when not using a walker. History of Current Condition The pt is very familiar to me. She was being seen earily this year for similar diagnosis' prior to the onset of the COVID 19 Pandemic. See developmental history below. Pt is now being referred for bilateral Trochanteric Bursitis and left IT band tendonitis. Pt reports initial onset of bilateral hip pain that started as her knee rehab was ending in Oct. She states her knees are good now. Her problem is her hips. She states they want to wobble . They go from side to side and it is starting to bother her back. Future Testing and Treatments Planned None Developmental History Developmental History Medical Records indicate pt had 4 months of PT after a L knee surgery towards the end of 2018. She had reported trouble walking for over a year. She then had therapy for L trochanteric bursitis of the L hip and IT band syndrome. She had a cortisone injection in the L hip 12/03/19 with pain relief. She also had occasional R hip pain. She was in L hip rehab from 01/01/20 to 02/14/20 with her rehabilitation interrupted due to COVID 19 pandemic. Pt return today for bilateral Trochanteric Bursitis and left IT band tendonitis. Treatment Goals Patient/Caregiver Goals Pt goal is to be able to walk with less hip sway and with a cane. Prior Functional Status Baseline Function- ADL's Independent Baseline Function- Mobility Independent Baseline Function- Gait Walks w/cane & FWW Baseline Function- Recreation/Hobbies Pool ex 3x/week, last time exercised was in 2018 Baseline Function- Other Stairs: Goes backwards descending, ascending 1 step at time. Uses both hands on 1 rail. Current Functional Impairments (Reported) Functional Limitations- ADL's Walking with wobbly hips causing back pain. Functional Limitations- Mobility/Gait Walks with FWW. Functional Limitations- Other 14 stairs going down to basement and 6 stairs going up to outside. Railing on boths sides. Personal Factors Other Personal Factors That May Effect Spouse the pt feels is of Therapy/Recovery declining health Controlled HBP Diabetes II Osteopenia L TKA - 12 yrs ago, R TKA - . Hypothyroid, hx of RBBB PT-OP-C Subjective Start: 06/03/20 18:31 Freq: Status: Active Protocol: Document 09/19/20 08:19 SP (Rec: 09/19/20 09:02 SP [id number]) OP-PT Subjective Patient Comments Patient Comments Pt reported I can walk backward better then forward, still silly hip when walking forward even using FWW. Walks about 1.5 hrs on [facility] [address] [place] [address] Pt stated having hard time raising into extension her L foot toes 2-3. PT-OP-E Functional Tests Start: 06/03/20 18:31 Freq: Status: Active Protocol: Document 09/09/20 08:13 LRN (Rec: 09/09/20 09:00 LRN [id number]) Functional Tests Timed Up and Go (TUG) Score 29 secs Cane R; 32 secs Cane L . Comments Cane, used hand/cane to stand up TUG Impairment Rating 100% Impaired (Score 20) PT-OP-G Mobility & Gait Start: 06/03/20 18:31 Freq: Status: Active Protocol: Document 06/06/20 12:47 LRN (Rec: 06/06/20 17:10 LRN [id number]) OP Mobility Evaluation Bed Mobility Supine to and from Sit Independent Transfers Sit to Stand Independent OP Gait Assessment Gait Gait Assistance Required: Independent Able to Maintain Weight Bearing Status Yes During Gait Assistive Devices Assistive Device Front Wheeled Walker Gait Deviations General Gait Pattern Flexed Trunk,Narrow Based Gait Factors Limiting Gait Function Factors Limiting Gait Function Decreased Strength,Pain Comments Gait Comments Pt's hips show excessive pelvic lateral shift when weight bearing. Stair Climbing Evaluation Evaluation Level of Assist On Stairs Independent Technique/Endurance Stair Climbing Technique Step to Step Comments Stair Climbing Comments Pt reports her gait pattern has not changed since her last rehab program 01/01/20-02/14. She ambulates up stairs step to step while holding onto one railing. She descends stair by holding onto one railing and going backwards. PT-OP-J Posture/Palpation/Skin Start: 06/03/20 18:31 Freq: Status: Active Protocol: Document 06/06/20 12:47 LRN (Rec: 06/06/20 13:38 LRN [id number]) Posture Evaluation Position Standing Head/C-Spine Posture Forward Head L-Spine Posture Increased Lordosis Pelvis Posture Anteriorly Tilted Weight Distribution Balanced Comments Posture Comments Flexed at hips 15 deg's Palpation Assessment Location R hip Palpation Location Superior to Greater trochanter L hip Palpation Location TFL muscle belly, Superior to Greater trochanter Palpation Findings Tenderness PT-OP-K Range of Motion Start: 06/03/20 18:31 Freq: Status: Active Protocol: Document 06/06/20 12:47 LRN (Rec: 06/06/20 13:38 LRN [id number]) Hip Goniometric Range of Motion Hip Right Passive Testing Position Supine except ext in prone Straight Leg Raise 60 Extension 5 Abduction 25 Internal Rotation 45 External Rotation 60 Left Passive Testing Position Supine except ext in prone Straight Leg Raise 80 Extension 3 Abduction 32 Internal Rotation 60 External Rotation 60 PT-OP-M Strength Start: 06/03/20 18:31 Freq: Status: Active Protocol: Document 07/14/20 09:50 LRN (Rec: 07/14/20 11:15 LRN [id number]) Hip Strength Hip Manual Muscle Testing Right Flexion (L2) 5 Normal Extension (S1) 3 Fair Abduction 2- Poor- Adduction 3- Fair- External Rotation 4 Good Internal Rotation 3+ Fair+ Left Flexion (L2) 5 Normal Extension (S1) 3 Fair Abduction 2- Poor- Adduction 4 Good External Rotation 3+ Fair+ Internal Rotation 3- Fair- PT-OP-Q Treatments Start: 06/03/20 18:31 Freq: Status: Active Protocol: Document 09/19/20 08:19 SP (Rec: 09/19/20 09:02 SP [id number]) Gym Equipment Cable Column (Body Solid) Hip Adduction Details Seat 4 holes Resistance 10# Reps/Time 30x, Extra time for set up and phys/v cuing Hip Abduction Details Seat 4 holes Resistance 20# Reps/Time 30x Therapeutic Exercises Standing Exercises Side bending Standing Exercise Name Sidebending Side bilateral Resistance Blue sport cord Equipment Used Sport cord w/strap around upper chest Reps/Minutes 6' (10x3) Comments Phys & v. cuing to SB/hands down vs swaying Hip hike Standing Exercise Name Hip Hike holding 5 secs Side bilateral Reps/Minutes 4' Comments Phys cuing throughout ex (feet side by side, elevate, up right posture) Trunk Flex Standing Exercise Name Trunk Flex Resistance Blue Sport cord w/strap around upper chest Reps/Minutes 20 x 3 Comments Phys cuing & stabilizing initially needed to keep hip flex out of ex. Gait Training Gait Activity Gait w/o hip drop Description Gait trng w/1 side support to prevent hip drop on opp side standing leg Device Used // bars, 1 support, to challenging maintain with no support. Distance/Duration 20' Treatment Focus preventing hip drop. Comments Focus at end: Front/Back stepping with R LE. Cue TA and hip hike elevation to allow level pelvis during swing through PT-OP-T Assessment and Plan Start: 06/03/20 18:31 Freq: Status: Active Protocol: Document 09/19/20 08:19 SP (Rec: 09/19/20 09:02 SP [id number]) Physical Therapy Assessment Goals Four Impairment Lacks appropriate HEP [employer] Development Goal (LTG) Pt will be independent on a self care HEP. LTG Duration 08/30/20 (08/29/20: Progressing) 2 Impairment decreased Nathan hip strength Short Term Goal (STG) Increase Nathan hip strength 1/2 grade with focus on hip AB ( Initial strength: Flex is 3/5 nathan, Ext is 3+/5 R, 3-/5 L; AB is 2-/5 bilateral; AD is 3-/5 R, 3+/5 L; ER is 4/5 R, 3+/5 L; IR s 3+/5 R, 3-/5 L). (07/14/20: Flex 5/5 nathan; Ext 3 +/5, 3-/5 L; AB is 2-/5 bilateral; AD is 3/5 R, 3+/5 L ; ER is 4/ R, 3 +/5 L; IR is 3 -/5 R, 2+/5 L). STG Duration 08/08/20 (07/14/20: No significant change other than flex is 5/5 nathan) Retirement Goal (LTG) Increase Nathan hip AB strength to 4/5 to improve functional mobility with gait. LTG Duration 08/30/20 (07/14/20: NOT MET GOAL) 1 Impairment antalgic gait with device Short Term Goal (STG) Patient able to ambulate with minimal limp on level surface with 1-2 canes or walking sticks. (07/03/20: Pt ambs with 2 SPC with minimal hip shift on WBing). STG Duration 07/02/20 (07/03/20: MET GOAL) Retirement Goal (LTG) Patient able to ambulate safely with a cane on level surface outside the home. LTG Duration 08/30/20 (07/14/20: Improved, NOT MET GOAL). Assessment Summary Assessment Pt is able to control hip drop using B UE support on //bars today, max cuing for TA and hip hike elevation. Stepping forward with R leg causes R hip to drop that seems due to weak L hip TFL/Hip AB. Physical Therapy Plan Frequency and Duration Frequency of Treatment 2x/Week Plan of Care Start Date 08/26/20 Plan of Care End Date 10/25/20 Therapeutic Interventions Therapeutic Interventions Balance Training,Gait Training ,Home Exercise Program,Manual Therapy,Patient/Caregiver Education,Self-Care/Home Management,Soft Tissue Mobilization,Therapeutic Activities,Therapeutic Exercises Modalities Cold Pack/Ice Massage,Electric Stimulation,Hot Packs, Ultrasound Next Visit Focus/Plan Next Note Type Treatment Note Next Visit Plan Recheck hip strength. Check QL strengthening for holding 5 , progressing to 10 for gait (R is weaker than L) supine & standing. Progress trunk SB strengthening, R>L. Progress hip AB. Cont gait training for transition to cane.
--- NOTE | 2020-09-23 11:38 | PT.OTN ---
Current Diagnoses Trochanteric bursitis, right hip (09/23/20) Trochanteric bursitis, left hip (09/23/20) Iliotibial band syndrome, left leg (09/23/20) Physical Therapy Treatment Note PT-OP-A Visit Information Start: 06/03/20 18:31 Freq: Status: Active Protocol: Document 09/23/20 09:01 LRN (Rec: 09/23/20 09:47 LRN [id number]) Out-Patient Physical Therapy Visit Information Visit Information Visit Type Treatment Note Visit Note 8 after PN Visit Start Time 09:01 Visit Stop Time 09:46 Total Visit Minutes 45 Visit Number 28 Evaluation Information Evaluation Date 06/06/20 Precautions Precautions Diabetes II Osteopenia Nathan TKA Bruises easily Hx of RBBB PT-OP-B Current Condition Start: 06/03/20 18:31 Freq: Status: Active Protocol: Document 06/06/20 12:47 LRN (Rec: 06/06/20 13:38 LRN [id number]) Current Condition History of Current Condition Onset Date 10/2019 Current Complaints Nathan hips wobble when walking when not using a walker. History of Current Condition The pt is very familiar to me. She was being seen earily this year for similar diagnosis' prior to the onset of the COVID 19 Pandemic. See developmental history below. Pt is now being referred for bilateral Trochanteric Bursitis and left IT band tendonitis. Pt reports initial onset of bilateral hip pain that started as her knee rehab was ending in Oct. She states her knees are good now. Her problem is her hips. She states they want to wobble . They go from side to side and it is starting to bother her back. Future Testing and Treatments Planned None Developmental History Developmental History Medical Records indicate pt had 4 months of PT after a L knee surgery towards the end of 2018. She had reported trouble walking for over a year. She then had therapy for L trochanteric bursitis of the L hip and IT band syndrome. She had a cortisone injection in the L hip 12/03/19 with pain relief. She also had occasional R hip pain. She was in L hip rehab from 01/01/20 to 02/14/20 with her rehabilitation interrupted due to COVID 19 pandemic. Pt return today for bilateral Trochanteric Bursitis and left IT band tendonitis. Treatment Goals Patient/Caregiver Goals Pt goal is to be able to walk with less hip sway and with a cane. Prior Functional Status Baseline Function- ADL's Independent Baseline Function- Mobility Independent Baseline Function- Gait Walks w/cane & FWW Baseline Function- Recreation/Hobbies Pool ex 3x/week, last time exercised was in 2018 Baseline Function- Other Stairs: Goes backwards descending, ascending 1 step at time. Uses both hands on 1 rail. Current Functional Impairments (Reported) Functional Limitations- ADL's Walking with wobbly hips causing back pain. Functional Limitations- Mobility/Gait Walks with FWW. Functional Limitations- Other 14 stairs going down to basement and 6 stairs going up to outside. Railing on boths sides. Personal Factors Other Personal Factors That May Effect Spouse the pt feels is of Therapy/Recovery declining health Controlled HBP Diabetes II Osteopenia L TKA - 12 yrs ago, R TKA - . Hypothyroid, hx of RBBB PT-OP-C Subjective Start: 06/03/20 18:31 Freq: Status: Active Protocol: Document 09/23/20 09:01 LRN (Rec: 09/23/20 09:47 LRN [id number]) OP-PT Subjective Patient Comments Patient Comments States she continues to walk and is working on walking without walker PT-OP-E Functional Tests Start: 06/03/20 18:31 Freq: Status: Active Protocol: Document 09/09/20 08:13 LRN (Rec: 09/09/20 09:00 LRN [id number]) Functional Tests Timed Up and Go (TUG) Score 29 secs Cane R; 32 secs Cane L . Comments Cane, used hand/cane to stand up TUG Impairment Rating 100% Impaired (Score 20) PT-OP-G Mobility & Gait Start: 06/03/20 18:31 Freq: Status: Active Protocol: Document 06/06/20 12:47 LRN (Rec: 06/06/20 17:10 LRN [id number]) OP Mobility Evaluation Bed Mobility Supine to and from Sit Independent Transfers Sit to Stand Independent OP Gait Assessment Gait Gait Assistance Required: Independent Able to Maintain Weight Bearing Status Yes During Gait Assistive Devices Assistive Device Front Wheeled Walker Gait Deviations General Gait Pattern Flexed Trunk,Narrow Based Gait Factors Limiting Gait Function Factors Limiting Gait Function Decreased Strength,Pain Comments Gait Comments Pt's hips show excessive pelvic lateral shift when weight bearing. Stair Climbing Evaluation Evaluation Level of Assist On Stairs Independent Technique/Endurance Stair Climbing Technique Step to Step Comments Stair Climbing Comments Pt reports her gait pattern has not changed since her last rehab program 01/01/20-02/14. She ambulates up stairs step to step while holding onto one railing. She descends stair by holding onto one railing and going backwards. PT-OP-J Posture/Palpation/Skin Start: 06/03/20 18:31 Freq: Status: Active Protocol: Document 06/06/20 12:47 LRN (Rec: 06/06/20 13:38 LRN [id number]) Posture Evaluation Position Standing Head/C-Spine Posture Forward Head L-Spine Posture Increased Lordosis Pelvis Posture Anteriorly Tilted Weight Distribution Balanced Comments Posture Comments Flexed at hips 15 deg's Palpation Assessment Location R hip Palpation Location Superior to Greater trochanter L hip Palpation Location TFL muscle belly, Superior to Greater trochanter Palpation Findings Tenderness PT-OP-K Range of Motion Start: 06/03/20 18:31 Freq: Status: Active Protocol: Document 06/06/20 12:47 LRN (Rec: 06/06/20 13:38 LRN [id number]) Hip Goniometric Range of Motion Hip Right Passive Testing Position Supine except ext in prone Straight Leg Raise 60 Extension 5 Abduction 25 Internal Rotation 45 External Rotation 60 Left Passive Testing Position Supine except ext in prone Straight Leg Raise 80 Extension 3 Abduction 32 Internal Rotation 60 External Rotation 60 PT-OP-M Strength Start: 06/03/20 18:31 Freq: Status: Active Protocol: Document 09/23/20 09:01 LRN (Rec: 09/23/20 09:47 LRN [id number]) Hip Strength Hip Manual Muscle Testing Right Extension (S1) 3+ Fair+ Abduction 2 Poor Left Extension (S1) 3- Fair- Abduction 2 Poor PT-OP-Q Treatments Start: 06/03/20 18:31 Freq: Status: Active Protocol: Document 09/23/20 09:01 LRN (Rec: 09/23/20 09:47 LRN [id number]) Gym Equipment Cable Column (Body Solid) Hip Adduction Details Seat 4 holes Resistance 15# Reps/Time 15x, v cuing needed. Hip Abduction Details Seat 4 holes Resistance 25# Reps/Time 15x Therapeutic Exercises Standing Exercises Side bending Standing Exercise Name Sidebending Side bilateral Resistance Blue sport cord Equipment Used Sport cord w/strap around upper chest Reps/Minutes 6' (10x3) Comments Phys & v. cuing to SB/hands down vs swaying PNF patterns for core stab Standing Exercise Name PNF for core stab (knees straight) Side bilateral Resistance L3 T-Band Reps/Minutes 15x Comments Needed phys cuing during ex for proper posturing (@ start) Trunk Flex Standing Exercise Name Trunk Flex Resistance Blue Sport cord w/strap around upper chest Reps/Minutes 20 x 3 Comments Phys cuing & stabilizing initially needed to keep hip flex out of ex. Trunk rot Standing Exercise Name Trunk rot (arms crossed over, body 90 deg from front facing) Side bilateral Resistance Lev 3 T-Band, single band Reps/Minutes 15 x 3 Comments phys cuing Gait Training Gait Activity Gait w/o hip drop Description Gait trng w/1 side support to prevent hip drop on opp side standing leg Device Used // bars, 1 support, to challenging maintain with no support. Distance/Duration 10' Treatment Focus preventing hip drop. Comments Focus at end: Front/Back stepping with R LE. Cue TA and hip hike elevation to allow level pelvis during swing through PT-OP-T Assessment and Plan Start: 06/03/20 18:31 Freq: Status: Active Protocol: Document 09/23/20 09:01 LRN (Rec: 09/23/20 09:47 LRN [id number]) Physical Therapy Assessment Goals Four Impairment Lacks appropriate HEP Desktop Manager Goal (LTG) Pt will be independent on a self care HEP. LTG Duration 08/30/20 (08/29/20: Progressing) 2 Impairment decreased Nathan hip strength Short Term Goal (STG) Increase Nathan hip strength 1/2 grade with focus on hip AB ( Initial strength: Flex is 3/5 nathan, Ext is 3+/5 R, 3-/5 L; AB is 2-/5 bilateral; AD is 3-/5 R, 3+/5 L; ER is 4/5 R, 3+/5 L; IR s 3+/5 R, 3-/5 L). (07/14/20: Flex 5/5 nathan; Ext 3 +/5, 3-/5 L; AB is 2-/5 bilateral; AD is 3/5 R, 3+/5 L ; ER is 4/ R, 3 +/5 L; IR is 3 -/5 R, 2+/5 L). STG Duration 08/08/20 (07/14/20: No significant change other than flex is 5/5 nathan) Desktop Manager Goal (LTG) Increase Nathan hip AB strength to 4/5 to improve functional mobility with gait. LTG Duration 08/30/20 (07/14/20: NOT MET GOAL) 1 Impairment antalgic gait with device Short Term Goal (STG) Patient able to ambulate with minimal limp on level surface with 1-2 canes or walking sticks. (07/03/20: Pt ambs with 2 SPC with minimal hip shift on WBing). STG Duration 07/02/20 (07/03/20: MET GOAL) Intermediate Goal (LTG) Patient able to ambulate safely with a cane on level surface outside the home. LTG Duration 08/30/20 (07/14/20: Improved, NOT MET GOAL). Progress Towards Goals Progress Comments Hip AB strength has improved from 2-/5 to 2+/5 Assessment Summary Assessment Hip AB strength is improved. Pt now able to lift against gravity to a small range. R hip tends to want to substitute with hip flexion. Physical Therapy Plan Frequency and Duration Frequency of Treatment 2x/Week Plan of Care Start Date 08/26/20 Plan of Care End Date 10/25/20 Next Visit Focus/Plan Next Note Type Treatment Note Next Visit Plan Recheck hip flexion. Check QL strengthening for holding 5, progressing to 10 for gait ( R is weaker than L) supine & standing. Progress trunk SB strengthening, R>L. Progress hip AB. Cont gait training for transition to cane.
--- NOTE | 2020-09-26 10:37 | PT.OTN ---
Current Diagnoses Trochanteric bursitis, right hip (09/26/20) Trochanteric bursitis, left hip (09/26/20) Iliotibial band syndrome, left leg (09/26/20) Physical Therapy Treatment Note PT-OP-A Visit Information Start: 06/03/20 18:31 Freq: Status: Active Protocol: Document 09/26/20 09:52 SP (Rec: 09/26/20 11:14 SP [id number]) Out-Patient Physical Therapy Visit Information Visit Information Visit Type Treatment Note Visit Note (8 after PN?) Visit Start Time 09:52 Visit Stop Time 10:37 Total Visit Minutes 45 Visit Number 29 Number of BRAND REPRESENTATIVE Visits 1 Precautions Precautions Diabetes II Osteopenia Nathan TKA Bruises easily Hx of RBBB PT-OP-B Current Condition Start: 06/03/20 18:31 Freq: Status: Active Protocol: Document 06/06/20 12:47 LRN (Rec: 06/06/20 13:38 LRN [id number]) Current Condition History of Current Condition Onset Date 10/2019 Current Complaints Nathan hips wobble when walking when not using a walker. History of Current Condition The pt is very familiar to me. She was being seen earily this year for similar diagnosis' prior to the onset of the COVID 19 Pandemic. See developmental history below. Pt is now being referred for bilateral Trochanteric Bursitis and left IT band tendonitis. Pt reports initial onset of bilateral hip pain that started as her knee rehab was ending in Oct. She states her knees are good now. Her problem is her hips. She states they want to wobble . They go from side to side and it is starting to bother her back. Future Testing and Treatments Planned None Developmental History Developmental History Medical Records indicate pt had 4 months of PT after a L knee surgery towards the end of 2018. She had reported trouble walking for over a year. She then had therapy for L trochanteric bursitis of the L hip and IT band syndrome. She had a cortisone injection in the L hip 12/03/19 with pain relief. She also had occasional R hip pain. She was in L hip rehab from 01/01/20 to 02/14/20 with her rehabilitation interrupted due to COVID 19 pandemic. Pt return today for bilateral Trochanteric Bursitis and left IT band tendonitis. Treatment Goals Patient/Caregiver Goals Pt goal is to be able to walk with less hip sway and with a cane. Prior Functional Status Baseline Function- ADL's Independent Baseline Function- Mobility Independent Baseline Function- Gait Walks w/cane & FWW Baseline Function- Recreation/Hobbies Pool ex 3x/week, last time exercised was in 2018 Baseline Function- Other Stairs: Goes backwards descending, ascending 1 step at time. Uses both hands on 1 rail. Current Functional Impairments (Reported) Functional Limitations- ADL's Walking with wobbly hips causing back pain. Functional Limitations- Mobility/Gait Walks with FWW. Functional Limitations- Other 14 stairs going down to basement and 6 stairs going up to outside. Railing on boths sides. Personal Factors Other Personal Factors That May Effect Spouse the pt feels is of Therapy/Recovery declining health Controlled HBP Diabetes II Osteopenia L TKA - 12 yrs ago, R TKA - . Hypothyroid, hx of RBBB PT-OP-C Subjective Start: 06/03/20 18:31 Freq: Status: Active Protocol: Document 09/26/20 09:52 SP (Rec: 09/26/20 11:14 SP [id number]) OP-PT Subjective Patient Comments Patient Comments Pt stated doing well, taking walks on the trail with 1-1.5 hrs a day smooth level pavement using FWW, cane short distances. PT-OP-E Functional Tests Start: 06/03/20 18:31 Freq: Status: Active Protocol: Document 09/09/20 08:13 LRN (Rec: 09/09/20 09:00 LRN [id number]) Functional Tests Timed Up and Go (TUG) Score 29 secs Cane R; 32 secs Cane L . Comments Cane, used hand/cane to stand up TUG Impairment Rating 100% Impaired (Score 20) PT-OP-G Mobility & Gait Start: 06/03/20 18:31 Freq: Status: Active Protocol: Document 06/06/20 12:47 LRN (Rec: 06/06/20 17:10 LRN [id number]) OP Mobility Evaluation Bed Mobility Supine to and from Sit Independent Transfers Sit to Stand Independent OP Gait Assessment Gait Gait Assistance Required: Independent Able to Maintain Weight Bearing Status Yes During Gait Assistive Devices Assistive Device Front Wheeled Walker Gait Deviations General Gait Pattern Flexed Trunk,Narrow Based Gait Factors Limiting Gait Function Factors Limiting Gait Function Decreased Strength,Pain Comments Gait Comments Pt's hips show excessive pelvic lateral shift when weight bearing. Stair Climbing Evaluation Evaluation Level of Assist On Stairs Independent Technique/Endurance Stair Climbing Technique Step to Step Comments Stair Climbing Comments Pt reports her gait pattern has not changed since her last rehab program 01/01/20-02/14. She ambulates up stairs step to step while holding onto one railing. She descends stair by holding onto one railing and going backwards. PT-OP-J Posture/Palpation/Skin Start: 06/03/20 18:31 Freq: Status: Active Protocol: Document 06/06/20 12:47 LRN (Rec: 06/06/20 13:38 LRN [id number]) Posture Evaluation Position Standing Head/C-Spine Posture Forward Head L-Spine Posture Increased Lordosis Pelvis Posture Anteriorly Tilted Weight Distribution Balanced Comments Posture Comments Flexed at hips 15 deg's Palpation Assessment Location R hip Palpation Location Superior to Greater trochanter L hip Palpation Location TFL muscle belly, Superior to Greater trochanter Palpation Findings Tenderness PT-OP-K Range of Motion Start: 06/03/20 18:31 Freq: Status: Active Protocol: Document 06/06/20 12:47 LRN (Rec: 06/06/20 13:38 LRN [id number]) Hip Goniometric Range of Motion Hip Right Passive Testing Position Supine except ext in prone Straight Leg Raise 60 Extension 5 Abduction 25 Internal Rotation 45 External Rotation 60 Left Passive Testing Position Supine except ext in prone Straight Leg Raise 80 Extension 3 Abduction 32 Internal Rotation 60 External Rotation 60 PT-OP-M Strength Start: 06/03/20 18:31 Freq: Status: Active Protocol: Document 09/23/20 09:01 LRN (Rec: 09/23/20 09:47 LRN [id number]) Hip Strength Hip Manual Muscle Testing Right Extension (S1) 3+ Fair+ Abduction 2 Poor Left Extension (S1) 3- Fair- Abduction 2 Poor PT-OP-Q Treatments Start: 06/03/20 18:31 Freq: Status: Active Protocol: Document 09/26/20 09:52 SP (Rec: 09/26/20 11:14 SP [id number]) Cardio Equipment Recumbent Elliptical (Biodex) Duration (Minutes) 5 Resistance 4 Seat Position 10 Other 648 spm Gym Equipment Cable Column (Body Solid) Hip Adduction Details Seat #5 hole (back #4) Resistance 15# Reps/Time x30 v cuing needed slow pacing , no clink Hip Abduction Details Seat #3 hole (back #4) Resistance 25# Reps/Time x30, v cuing needed slow pacing, no clink Therapeutic Exercises Standing Exercises Hip Hike off step Standing Exercise Name HEP review Side bilateral Equipment Used 4 in step, rail Reps/Minutes 10 Comments cue for QL faciliation lift Hip hike Standing Exercise Name Hip Hike holding 5 secs Side bilateral Reps/Minutes 6' Comments Phys cuing throughout ex (feet side by side, elevate, up right posture) Gait Training Gait Activity Gait with Assist Device Description Gait w/cane 1 side at time; doing ip hike on opposite side of standing leg. Device Used 1-2 Cane(s) Level of Assistance CGA w/gait belt Surface Level Distance/Duration 15' Treatment Focus Preventing excessive hip sway and drop on opposite side. Comments cued hip hike advancing LE, glut facilitation on standing LE PT-OP-T Assessment and Plan Start: 06/03/20 18:31 Freq: Status: Active Protocol: Document 09/26/20 09:52 SP (Rec: 09/26/20 11:14 SP [id number]) Physical Therapy Assessment Goals Four Impairment Lacks appropriate HEP Alf Goal (LTG) Pt will be independent on a self care HEP. LTG Duration 08/30/20 (08/29/20: Progressing) 2 Impairment decreased Nathan hip strength Short Term Goal (STG) Increase Nathan hip strength 1/2 grade with focus on hip AB ( Initial strength: Flex is 3/5 nathan, Ext is 3+/5 R, 3-/5 L; AB is 2-/5 bilateral; AD is 3-/5 R, 3+/5 L; ER is 4/5 R, 3+/5 L; IR s 3+/5 R, 3-/5 L). (07/14/20: Flex 5/5 nathan; Ext 3 +/5, 3-/5 L; AB is 2-/5 bilateral; AD is 3/5 R, 3+/5 L ; ER is 4/ R, 3 +/5 L; IR is 3 -/5 R, 2+/5 L). STG Duration 08/08/20 (07/14/20: No significant change other than flex is 5/5 nathan) Alf Goal (LTG) Increase Nathan hip AB strength to 4/5 to improve functional mobility with gait. LTG Duration 08/30/20 (07/14/20: NOT MET GOAL) 1 Impairment antalgic gait with device Short Term Goal (STG) Patient able to ambulate with minimal limp on level surface with 1-2 canes or walking sticks. (07/03/20: Pt ambs with 2 SPC with minimal hip shift on WBing). STG Duration 07/02/20 (07/03/20: MET GOAL) Passenger Agent Goal (LTG) Patient able to ambulate safely with a cane on level surface outside the home. LTG Duration 08/30/20 (07/14/20: Improved, NOT MET GOAL). Assessment Summary Assessment In static standing L QL and R glut med facilitation stronger than oppo side to allow level pelvis stabilization to carry over into gait. Improves w/ BUE support continues to be challenged w/ SPC. Physical Therapy Plan Frequency and Duration Frequency of Treatment 2x/Week Plan of Care Start Date 08/26/20 Plan of Care End Date 10/25/20 Therapeutic Interventions Therapeutic Interventions Balance Training,Gait Training ,Home Exercise Program,Manual Therapy,Patient/Caregiver Education,Self-Care/Home Management,Soft Tissue Mobilization,Therapeutic Activities,Therapeutic Exercises Modalities Cold Pack/Ice Massage,Electric Stimulation,Hot Packs, Ultrasound Next Visit Focus/Plan Next Note Type Treatment Note Next Visit Plan Continue per PT POC: Recheck hip flexion. Check QL strengthening for holding 5, progressing to 10 for gait (R is weaker than L) supine & standing. Progress trunk SB strengthening, R>L. Progress hip AB. Cont gait training for transition to cane.
--- NOTE | 2020-09-30 17:58 | PT.OTN ---
Current Diagnoses Trochanteric bursitis, right hip (09/30/20) Trochanteric bursitis, left hip (09/30/20) Iliotibial band syndrome, left leg (09/30/20) Physical Therapy Treatment Note PT-OP-A Visit Information Start: 06/03/20 18:31 Freq: Status: Active Protocol: Document 09/30/20 08:14 LRN (Rec: 09/30/20 09:25 LRN [id number]) Out-Patient Physical Therapy Visit Information Visit Information Visit Type Progress Note Visit Start Time 08:14 Visit Stop Time 08:57 Total Visit Minutes 43 Visit Number 30 Evaluation Information Evaluation Date 06/06/20 Precautions Precautions Diabetes II Osteopenia Nathan TKA Bruises easily Hx of RBBB PT-OP-B Current Condition Start: 06/03/20 18:31 Freq: Status: Active Protocol: Document 06/06/20 12:47 LRN (Rec: 06/06/20 13:38 LRN [id number]) Current Condition History of Current Condition Onset Date 10/2019 Current Complaints Nathan hips wobble when walking when not using a walker. History of Current Condition The pt is very familiar to me. She was being seen earily this year for similar diagnosis' prior to the onset of the COVID 19 Pandemic. See developmental history below. Pt is now being referred for bilateral Trochanteric Bursitis and left IT band tendonitis. Pt reports initial onset of bilateral hip pain that started as her knee rehab was ending in Oct. She states her knees are good now. Her problem is her hips. She states they want to wobble . They go from side to side and it is starting to bother her back. Future Testing and Treatments Planned None Developmental History Developmental History Medical Records indicate pt had 4 months of PT after a L knee surgery towards the end of 2018. She had reported trouble walking for over a year. She then had therapy for L trochanteric bursitis of the L hip and IT band syndrome. She had a cortisone injection in the L hip 12/03/19 with pain relief. She also had occasional R hip pain. She was in L hip rehab from 01/01/20 to 02/14/20 with her rehabilitation interrupted due to COVID 19 pandemic. Pt return today for bilateral Trochanteric Bursitis and left IT band tendonitis. Treatment Goals Patient/Caregiver Goals Pt goal is to be able to walk with less hip sway and with a cane. Prior Functional Status Baseline Function- ADL's Independent Baseline Function- Mobility Independent Baseline Function- Gait Walks w/cane & FWW Baseline Function- Recreation/Hobbies Pool ex 3x/week, last time exercised was in 2018 Baseline Function- Other Stairs: Goes backwards descending, ascending 1 step at time. Uses both hands on 1 rail. Current Functional Impairments (Reported) Functional Limitations- ADL's Walking with wobbly hips causing back pain. Functional Limitations- Mobility/Gait Walks with FWW. Functional Limitations- Other 14 stairs going down to basement and 6 stairs going up to outside. Railing on boths sides. Personal Factors Other Personal Factors That May Effect Spouse the pt feels is of Therapy/Recovery declining health Controlled HBP Diabetes II Osteopenia L TKA - 12 yrs ago, R TKA - . Hypothyroid, hx of RBBB PT-OP-C Subjective Start: 06/03/20 18:31 Freq: Status: Active Protocol: Document 09/30/20 08:14 LRN (Rec: 09/30/20 09:25 LRN [id number]) OP-PT Subjective Patient Comments Patient Comments States her R neck is hurting in the area of her well healed scar from surgery 5 yrs ago. PT-OP-E Functional Tests Start: 06/03/20 18:31 Freq: Status: Active Protocol: Document 09/09/20 08:13 LRN (Rec: 09/09/20 09:00 LRN [id number]) Functional Tests Timed Up and Go (TUG) Score 29 secs Cane R; 32 secs Cane L . Comments Cane, used hand/cane to stand up TUG Impairment Rating 100% Impaired (Score 20) PT-OP-G Mobility & Gait Start: 06/03/20 18:31 Freq: Status: Active Protocol: Document 06/06/20 12:47 LRN (Rec: 06/06/20 17:10 LRN [id number]) OP Mobility Evaluation Bed Mobility Supine to and from Sit Independent Transfers Sit to Stand Independent OP Gait Assessment Gait Gait Assistance Required: Independent Able to Maintain Weight Bearing Status Yes During Gait Assistive Devices Assistive Device Front Wheeled Walker Gait Deviations General Gait Pattern Flexed Trunk,Narrow Based Gait Factors Limiting Gait Function Factors Limiting Gait Function Decreased Strength,Pain Comments Gait Comments Pt's hips show excessive pelvic lateral shift when weight bearing. Stair Climbing Evaluation Evaluation Level of Assist On Stairs Independent Technique/Endurance Stair Climbing Technique Step to Step Comments Stair Climbing Comments Pt reports her gait pattern has not changed since her last rehab program 01/01/20-02/14. She ambulates up stairs step to step while holding onto one railing. She descends stair by holding onto one railing and going backwards. PT-OP-J Posture/Palpation/Skin Start: 06/03/20 18:31 Freq: Status: Active Protocol: Document 06/06/20 12:47 LRN (Rec: 06/06/20 13:38 LRN [id number]) Posture Evaluation Position Standing Head/C-Spine Posture Forward Head L-Spine Posture Increased Lordosis Pelvis Posture Anteriorly Tilted Weight Distribution Balanced Comments Posture Comments Flexed at hips 15 deg's Palpation Assessment Location R hip Palpation Location Superior to Greater trochanter L hip Palpation Location TFL muscle belly, Superior to Greater trochanter Palpation Findings Tenderness PT-OP-K Range of Motion Start: 06/03/20 18:31 Freq: Status: Active Protocol: Document 06/06/20 12:47 LRN (Rec: 06/06/20 13:38 LRN [id number]) Hip Goniometric Range of Motion Hip Right Passive Testing Position Supine except ext in prone Straight Leg Raise 60 Extension 5 Abduction 25 Internal Rotation 45 External Rotation 60 Left Passive Testing Position Supine except ext in prone Straight Leg Raise 80 Extension 3 Abduction 32 Internal Rotation 60 External Rotation 60 PT-OP-M Strength Start: 06/03/20 18:31 Freq: Status: Active Protocol: Document 09/30/20 08:14 LRN (Rec: 09/30/20 09:25 LRN [id number]) Hip Strength Hip Manual Muscle Testing Right Flexion (L2) 5 Normal Comments Hip Hike in neutral and supine is 5/5 Hip Hike with leg in ~20 deg's AB is 5/5 Left Flexion (L2) 5 Normal Comments Hip Hike in neutral and supine 5/5 Pt has difficulty with hip hike when leg is ~20 deg's abducted. PT-OP-Q Treatments Start: 06/03/20 18:31 Freq: Status: Active Protocol: Document 09/30/20 08:14 LRN (Rec: 09/30/20 09:25 LRN [id number]) Therapeutic Exercises Supine Exercises Hip Hike Supine Exercise Name Alternating Hip Hike Side bilateral Reps/Minutes 5 & 10 sec hold durations Comments Training for: Legs locked straight, legs spread ~20 deg' s, feet DF'd Standing Exercises Hip hike Standing Exercise Name Hip Hike holding 5 secs ( working control L, strength R) Side bilateral Reps/Minutes 15' Comments Phys cuing throughout ex (feet side by side, elevate hip, knee straight) Gait Training Gait Activity Gait w/o hip drop Description Gait trng w/1 side support to prevent hip drop on opp side standing leg Device Used // bars, 1 support, to challenging maintain with no support. Distance/Duration 15' Treatment Focus preventing hip drop, QL contraction with legs straight . Comments Focus at end: Stepping with R LE. Cue TA and hip hike elevation to allow level pelvis during swing through PT-OP-T Assessment and Plan Start: 06/03/20 18:31 Freq: Status: Active Protocol: Document 09/30/20 08:14 LRN (Rec: 09/30/20 09:25 LRN [id number]) Physical Therapy Assessment Goals Four Impairment Lacks appropriate HEP Scale Reclamation Tender Goal (LTG) Pt will be independent on a self care HEP. LTG Duration 11/27/20 (08/29/20: Progressing) 3 Impairment LEFS score 48/80 (48-62 score is 20-39% impairment) Fdc Goal (LTG) Improve pt function per LEFS of 52 or greater (48-62 score is 20-39% impairment). (08/22/20: LEFS score of 57/80 LTG Duration 08/30/20 (08/22/20: MET GOAL) 2 Impairment decreased Nathan hip strength Short Term Goal (STG) Increase Nathan hip strength 1/2 grade with focus on hip AB ( Initial strength: Flex is 3/5 nathan, Ext is 3+/5 R, 3-/5 L; AB is 2-/5 bilateral; AD is 3-/5 R, 3+/5 L; ER is 4/5 R, 3+/5 L; IR s 3+/5 R, 3-/5 L). (07/14/20: Flex 5/5 nathan; Ext 3 +/5, 3-/5 L; AB is 2-/5 bilateral; AD is 3/5 R, 3+/5 L ; ER is 4/ R, 3 +/5 L; IR is 3 -/5 R, 2+/5 L). STG Duration 11/07/20 (11/30/19: All ms grps not assessed, Flex is same, QL strength incr) Scale Reclamation Tender Goal (LTG) Increase Nathan hip AB strength to 4/5 to improve functional mobility with gait. LTG Duration 11/27/20 (07/14/20: NOT MET) 1 Impairment antalgic gait with device Short Term Goal (STG) Patient able to ambulate with minimal limp on level surface with 1-2 canes or walking sticks. (07/03/20: Pt ambs with 2 SPC with minimal hip shift on WBing). STG Duration 07/02/20 (07/03/20: MET GOAL) Scale Reclamation Tender Goal (LTG) Patient able to ambulate safely with a cane on level surface outside the home. LTG Duration 11/27/20 (07/14/20: NOT MET). Assessment Summary Assessment Hip Flex strength is normal. Her QL strength is improving. Pt is able to perform a hip hike in supine with legs in neutral position, but not when legs are in AB. In standing she is not able to lift L hip with QL contraction when leg is straight and in neutral. She appears to have greater muscle tone with L QL. R glut med and QL ms tension/bulk less than L. The pt is very slowly showing increased control of her hips and less hip sway with gait. Today she presents with complaints of R UE shoulder pain and may limit her ability in trunk strengthening. If she is able to improve her hip strength then it will decrease the impact of weight bearing in her R UE during gait. I will assess her at the next visit for overall improvement in her hip strength. She will benefit from continued gait training to reduce the dependence of weight bearing of her UE's with gait, but it may be with use of FWW or 2 canes for safety with gait outside vs use of one cane. Physical Therapy Plan Frequency and Duration Frequency of Treatment 2x/Week Plan of Care Start Date 09/30/20 Plan of Care End Date 11/27/20 Next Visit Focus/Plan Next Note Type Treatment Note Next Visit Plan Continue per PT POC: Recheck hip strength. Discusss appropriateness of ambulatory goal of gait with cane outside . Focus on trunk SB, R>L & hip AB strengthening. Gait training for gait with 1-2 canes.
--- NOTE | 2020-09-30 17:59 | PT.OPPOC ---
Physical, Occupational & Speech Therapy At [facility] Current Diagnoses Trochanteric bursitis, right hip (09/30/20) Trochanteric bursitis, left hip (09/30/20) Iliotibial band syndrome, left leg (09/30/20) Visit Care Team Role Provider Type Juli Harrell MD Primary Care Provider Non-Staff Specialty: Internal Medicine Address: [address] [place] [address], [id number] Email: Ander Billings MD Attending Provider Physician Referring Provider Specialty: Orthopedic Surgery Address: [address] [place] [address], [id number] Email: [email or web address] Plan Of Care PT-OP-T Assessment and Plan Start: 06/03/20 18:31 Freq: Status: Active Protocol: Document 09/30/20 08:14 LRN (Rec: 09/30/20 09:25 LRN [id number]) Physical Therapy Assessment Goals Four Impairment Lacks appropriate HEP Custodial Goal (LTG) Pt will be independent on a self care HEP. LTG Duration 11/27/20 (08/29/20: Progressing) 3 Impairment LEFS score 48/80 (48-62 score is 20-39% impairment) Custodial Goal (LTG) Improve pt function per LEFS of 52 or greater (48-62 score is 20-39% impairment). (08/22/20: LEFS score of 57/80 LTG Duration 08/30/20 (08/22/20: MET GOAL) 2 Impairment decreased Radha hip strength Short Term Goal (STG) Increase Radha hip strength 1/2 grade with focus on hip AB ( Initial strength: Flex is 3/5 radha, Ext is 3+/5 R, 3-/5 L; AB is 2-/5 bilateral; AD is 3-/5 R, 3+/5 L; ER is 4/5 R, 3+/5 L; IR s 3+/5 R, 3-/5 L). (07/14/20: Flex 5/5 radha; Ext 3 +/5, 3-/5 L; AB is 2-/5 bilateral; AD is 3/5 R, 3+/5 L ; ER is 4/ R, 3 +/5 L; IR is 3 -/5 R, 2+/5 L). STG Duration 11/07/20 (11/30/19: All ms grps not assessed, Flex is same, QL strength incr) Telephone Directory Distributor Driver Goal (LTG) Increase Radha hip AB strength to 4/5 to improve functional mobility with gait. LTG Duration 11/27/20 (07/14/20: NOT MET) 1 Impairment antalgic gait with device Short Term Goal (STG) Patient able to ambulate with minimal limp on level surface with 1-2 canes or walking sticks. (07/03/20: Pt ambs with 2 SPC with minimal hip shift on WBing). STG Duration 07/02/20 (07/03/20: MET GOAL) Custodial Goal (LTG) Patient able to ambulate safely with a cane on level surface outside the home. LTG Duration 11/27/20 (07/14/20: NOT MET). Assessment Summary Assessment Hip Flex strength is normal. Her QL strength is improving. Pt is able to perform a hip hike in supine with legs in neutral position, but not when legs are in AB. In standing she is not able to lift L hip with QL contraction when leg is straight and in neutral. She appears to have greater muscle tone with L QL. R glut med and QL ms tension/bulk less than L. The pt is very slowly showing increased control of her hips and less hip sway with gait. Today she presents with complaints of R UE shoulder pain and may limit her ability in trunk strengthening. If she is able to improve her hip strength then it will decrease the impact of weight bearing in her R UE during gait. I will assess her at the next visit for overall improvement in her hip strength. She will benefit from continued gait training to reduce the dependence of weight bearing of her UE's with gait, but it may be with use of FWW or 2 canes for safety with gait outside vs use of one cane. Physical Therapy Plan Frequency and Duration Frequency of Treatment 2x/Week Plan of Care Start Date 09/30/20 Plan of Care End Date 11/27/20 Next Visit Focus/Plan Next Note Type Treatment Note Next Visit Plan Continue per PT POC: Recheck hip strength. Discusss appropriateness of ambulatory goal of gait with cane outside . Focus on trunk SB, R>L & hip AB strengthening. Gait training for gait with 1-2 canes. Plan of Care Dates Plan of Care Start Date 09/30/20 Plan of Care End Date 11/27/20 Electronically Signed by: Constanza Harper, PT 09/30/20 [id number] Please Sign and Return: I have reviewed this Plan of Care and certify that the skilled therapy services above are required to meet the patient?s needs. Physician Signature Date Printed Name and Credentials Clinical Instructor Signature Printed Name and Credentials
--- NOTE | 2020-10-03 09:23 | PT.OTN ---
Current Diagnoses Trochanteric bursitis, right hip (10/03/20) Trochanteric bursitis, left hip (10/03/20) Iliotibial band syndrome, left leg (10/03/20) Physical Therapy Treatment Note PT-OP-A Visit Information Start: 06/03/20 18:31 Freq: Status: Active Protocol: Document 10/03/20 08:17 LRN (Rec: 10/03/20 09:20 LRN [id number]) Out-Patient Physical Therapy Visit Information Visit Information Visit Type Treatment Note Visit Start Time 08:17 Visit Stop Time 09:02 Total Visit Minutes 45 Visit Number 31 Evaluation Information Evaluation Date 06/06/20 Precautions Precautions Diabetes II Osteopenia Nathan TKA Bruises easily Hx of RBBB PT-OP-B Current Condition Start: 06/03/20 18:31 Freq: Status: Active Protocol: Document 06/06/20 12:47 LRN (Rec: 06/06/20 13:38 LRN [id number]) Current Condition History of Current Condition Onset Date 10/2019 Current Complaints Nathan hips wobble when walking when not using a walker. History of Current Condition The pt is very familiar to me. She was being seen earily this year for similar diagnosis' prior to the onset of the COVID 19 Pandemic. See developmental history below. Pt is now being referred for bilateral Trochanteric Bursitis and left IT band tendonitis. Pt reports initial onset of bilateral hip pain that started as her knee rehab was ending in Oct. She states her knees are good now. Her problem is her hips. She states they want to wobble . They go from side to side and it is starting to bother her back. Future Testing and Treatments Planned None Developmental History Developmental History Medical Records indicate pt had 4 months of PT after a L knee surgery towards the end of 2018. She had reported trouble walking for over a year. She then had therapy for L trochanteric bursitis of the L hip and IT band syndrome. She had a cortisone injection in the L hip 12/03/19 with pain relief. She also had occasional R hip pain. She was in L hip rehab from 01/01/20 to 02/14/20 with her rehabilitation interrupted due to COVID 19 pandemic. Pt return today for bilateral Trochanteric Bursitis and left IT band tendonitis. Treatment Goals Patient/Caregiver Goals Pt goal is to be able to walk with less hip sway and with a cane. Prior Functional Status Baseline Function- ADL's Independent Baseline Function- Mobility Independent Baseline Function- Gait Walks w/cane & FWW Baseline Function- Recreation/Hobbies Pool ex 3x/week, last time exercised was in 2018 Baseline Function- Other Stairs: Goes backwards descending, ascending 1 step at time. Uses both hands on 1 rail. Current Functional Impairments (Reported) Functional Limitations- ADL's Walking with wobbly hips causing back pain. Functional Limitations- Mobility/Gait Walks with FWW. Functional Limitations- Other 14 stairs going down to basement and 6 stairs going up to outside. Railing on boths sides. Personal Factors Other Personal Factors That May Effect Spouse the pt feels is of Therapy/Recovery declining health Controlled HBP Diabetes II Osteopenia L TKA - 12 yrs ago, R TKA - . Hypothyroid, hx of RBBB PT-OP-C Subjective Start: 06/03/20 18:31 Freq: Status: Active Protocol: Document 10/03/20 08:17 LRN (Rec: 10/03/20 09:20 LRN [id number]) OP-PT Subjective Patient Comments Patient Comments Has a little shoulder pain. PT-OP-E Functional Tests Start: 06/03/20 18:31 Freq: Status: Active Protocol: Document 09/09/20 08:13 LRN (Rec: 09/09/20 09:00 LRN [id number]) Functional Tests Timed Up and Go (TUG) Score 29 secs Cane R; 32 secs Cane L . Comments Cane, used hand/cane to stand up TUG Impairment Rating 100% Impaired (Score 20) PT-OP-G Mobility & Gait Start: 06/03/20 18:31 Freq: Status: Active Protocol: Document 06/06/20 12:47 LRN (Rec: 06/06/20 17:10 LRN [id number]) OP Mobility Evaluation Bed Mobility Supine to and from Sit Independent Transfers Sit to Stand Independent OP Gait Assessment Gait Gait Assistance Required: Independent Able to Maintain Weight Bearing Status Yes During Gait Assistive Devices Assistive Device Front Wheeled Walker Gait Deviations General Gait Pattern Flexed Trunk,Narrow Based Gait Factors Limiting Gait Function Factors Limiting Gait Function Decreased Strength,Pain Comments Gait Comments Pt's hips show excessive pelvic lateral shift when weight bearing. Stair Climbing Evaluation Evaluation Level of Assist On Stairs Independent Technique/Endurance Stair Climbing Technique Step to Step Comments Stair Climbing Comments Pt reports her gait pattern has not changed since her last rehab program 01/01/20-02/14. She ambulates up stairs step to step while holding onto one railing. She descends stair by holding onto one railing and going backwards. PT-OP-J Posture/Palpation/Skin Start: 06/03/20 18:31 Freq: Status: Active Protocol: Document 06/06/20 12:47 LRN (Rec: 06/06/20 13:38 LRN [id number]) Posture Evaluation Position Standing Head/C-Spine Posture Forward Head L-Spine Posture Increased Lordosis Pelvis Posture Anteriorly Tilted Weight Distribution Balanced Comments Posture Comments Flexed at hips 15 deg's Palpation Assessment Location R hip Palpation Location Superior to Greater trochanter L hip Palpation Location TFL muscle belly, Superior to Greater trochanter Palpation Findings Tenderness PT-OP-K Range of Motion Start: 06/03/20 18:31 Freq: Status: Active Protocol: Document 06/06/20 12:47 LRN (Rec: 06/06/20 13:38 LRN [id number]) Hip Goniometric Range of Motion Hip Right Passive Testing Position Supine except ext in prone Straight Leg Raise 60 Extension 5 Abduction 25 Internal Rotation 45 External Rotation 60 Left Passive Testing Position Supine except ext in prone Straight Leg Raise 80 Extension 3 Abduction 32 Internal Rotation 60 External Rotation 60 PT-OP-M Strength Start: 06/03/20 18:31 Freq: Status: Active Protocol: Document 10/03/20 08:17 LRN (Rec: 10/03/20 09:20 LRN [id number]) Hip Strength Hip Manual Muscle Testing Right Flexion (L2) 5 Normal Extension (S1) 3+ Fair+ Abduction 2- Poor- Adduction 3 Fair External Rotation 3+ Fair+ Internal Rotation 3+ Fair+ Left Flexion (L2) 5 Normal Extension (S1) 3- Fair- Abduction 2- Poor- Adduction 3 Fair External Rotation 4 Good Internal Rotation 3 Fair PT-OP-Q Treatments Start: 06/03/20 18:31 Freq: Status: Active Protocol: Document 10/03/20 08:17 LRN (Rec: 10/03/20 09:20 LRN [id number]) Therapeutic Exercises Prone Exercises hip ext Prone Exercise Name Conc/Ecc Hip Ext strengthening Side bilateral Reps/Minutes 8x each Comments Extra time for proper performance of ex, cuing TA & ASIS needed Sidelying Exercises Hip AB/AD Sidelying Exercise Name Con/Ecc hip AB/AD strengthening Side bilateral Reps/Minutes 8 reps each Comments Cuing TA & ASIS and proper movement of lift needed Sitting Exercises Hip ER/IR Sitting Exercise Name L hip ER/IR Reps/Minutes 2-3 hold, 20x ER Comments cuing and TA and proper movement needed Gait Training Gait Activity Gait w/o hip drop Description Gait trng w/1 side support to prevent hip drop on opp side standing leg Device Used // bars, 1 support, to challenging maintain with no support. Distance/Duration 15' Treatment Focus preventing hip drop, QL contraction with legs straight . Comments Focus at end: Stepping with R LE. Cue TA and hip hike elevation to allow level pelvis during swing through Gait with Assist Device Description Gait w/2cane . Device Used 2 Cane(s) Level of Assistance CGA w/gait belt Surface Level Distance/Duration 5' Treatment Focus Preventing excessive hip sway and drop on opposite side. Comments cued R hip hike advancing LE, glut facilitation on standing LE PT-OP-T Assessment and Plan Start: 06/03/20 18:31 Freq: Status: Active Protocol: Document 10/03/20 08:17 LRN (Rec: 10/03/20 09:20 N [id number]) Physical Therapy Assessment Goals Four Impairment Lacks appropriate HEP [facility] Goal (LTG) Pt will be independent on a self care HEP. LTG Duration 11/27/20 (08/29/20: Progressing) 3 Impairment LEFS score 48/80 (48-62 score is 20-39% impairment) [facility] Goal (LTG) Improve pt function per LEFS of 52 or greater (48-62 score is 20-39% impairment). (08/22/20: LEFS score of 57/80 LTG Duration 08/30/20 (08/22/20: MET GOAL) 2 Impairment decreased Nathan hip strength Short Term Goal (STG) Increase Nathan hip strength 1/2 grade with focus on hip AB ( Initial strength: Flex is 3/5 nathan, Ext is 3+/5 R, 3-/5 L; AB is 2-/5 bilateral; AD is 3-/5 R, 3+/5 L; ER is 4/5 R, 3+/5 L; IR s 3+/5 R, 3-/5 L). (10/03/20: Flex 5/5 nathan-Goal Met; Ext, 3-/5 nathan; AB is 2-/5 bilateral; AD is 3/5 nathan-Goal Met left; ER is 4/ R, 3 +/5 L ; IR is 3+/5 R, 3/5 L). STG Duration 11/07/20 (10/03/20: Overall, flex, L hip IR achieved, QL strength increasin) Race Starter Goal (LTG) Increase Nathan hip AB strength to 4/5 to improve functional mobility with gait. LTG Duration 11/27/20 (07/14/20: NOT MET) 1 Impairment antalgic gait with device Short Term Goal (STG) Patient able to ambulate with minimal limp on level surface with 1-2 canes or walking sticks. (07/03/20: Pt ambs with 2 SPC with minimal hip shift on WBing). STG Duration 07/02/20 (07/03/20: MET GOAL) Race Starter Goal (LTG) Patient able to ambulate safely with a cane on level surface outside the home. LTG Duration 11/27/20 (07/14/20: NOT MET). Progress Towards Goals Progress Comments Hip Flex bilaterally & L hip IR is improved 1/2 grade. Posture with gait using 2 canes is much improved. Pt is able to control hip sway with minimal visible. With gait, her R hip drop is greater with L SLS than opposite side. Assessment Summary Assessment Pt Hip strength shows she is weaker wth R hip AB and AD bilaterally, although AD is at least 3/5, no change with ER, flex, ext; IR is improved 1/2 grade bilaterally. Pt is visibly limited in active range with AB, ext & L hip IR. Gaitw/2canes: improved, her R hip drop is greater with L SLS than opposite side. Physical Therapy Plan Frequency and Duration Frequency of Treatment 2x/Week Plan of Care Start Date 09/30/20 Plan of Care End Date 11/27/20 Next Visit Focus/Plan Next Note Type Treatment Note Next Visit Plan Discusss appropriateness of ambulatory goal (#1) of gait with 1 cane outside. Focus on trunk SB, R>L & hip AB strengthening (add sidelie). Gait training for gait with 2 progressing to 1 cane, might try uneven surface.
--- NOTE | 2020-10-07 17:27 | PT.OTN ---
Current Diagnoses Trochanteric bursitis, right hip (10/07/20) Trochanteric bursitis, left hip (10/07/20) Iliotibial band syndrome, left leg (10/07/20) Physical Therapy Treatment Note PT-OP-A Visit Information Start: 06/03/20 18:31 Freq: Status: Active Protocol: Document 10/07/20 09:05 LRN (Rec: 10/07/20 09:47 LRN [id number]) Out-Patient Physical Therapy Visit Information Visit Information Visit Type Treatment Note Visit Start Time 09:06 Visit Stop Time 09:46 Total Visit Minutes 40 Visit Number 32 Evaluation Information Evaluation Date 06/06/20 Precautions Precautions Diabetes II Osteopenia Nathan TKA Bruises easily Hx of RBBB PT-OP-B Current Condition Start: 06/03/20 18:31 Freq: Status: Active Protocol: Document 06/06/20 12:47 LRN (Rec: 06/06/20 13:38 LRN [id number]) Current Condition History of Current Condition Onset Date 10/2019 Current Complaints Nathan hips wobble when walking when not using a walker. History of Current Condition The pt is very familiar to me. She was being seen earily this year for similar diagnosis' prior to the onset of the COVID 19 Pandemic. See developmental history below. Pt is now being referred for bilateral Trochanteric Bursitis and left IT band tendonitis. Pt reports initial onset of bilateral hip pain that started as her knee rehab was ending in Oct. She states her knees are good now. Her problem is her hips. She states they want to wobble . They go from side to side and it is starting to bother her back. Future Testing and Treatments Planned None Developmental History Developmental History Medical Records indicate pt had 4 months of PT after a L knee surgery towards the end of 2018. She had reported trouble walking for over a year. She then had therapy for L trochanteric bursitis of the L hip and IT band syndrome. She had a cortisone injection in the L hip 12/03/19 with pain relief. She also had occasional R hip pain. She was in L hip rehab from 01/01/20 to 02/14/20 with her rehabilitation interrupted due to COVID 19 pandemic. Pt return today for bilateral Trochanteric Bursitis and left IT band tendonitis. Treatment Goals Patient/Caregiver Goals Pt goal is to be able to walk with less hip sway and with a cane. Prior Functional Status Baseline Function- ADL's Independent Baseline Function- Mobility Independent Baseline Function- Gait Walks w/cane & FWW Baseline Function- Recreation/Hobbies Pool ex 3x/week, last time exercised was in 2018 Baseline Function- Other Stairs: Goes backwards descending, ascending 1 step at time. Uses both hands on 1 rail. Current Functional Impairments (Reported) Functional Limitations- ADL's Walking with wobbly hips causing back pain. Functional Limitations- Mobility/Gait Walks with FWW. Functional Limitations- Other 14 stairs going down to basement and 6 stairs going up to outside. Railing on boths sides. Personal Factors Other Personal Factors That May Effect Spouse the pt feels is of Therapy/Recovery declining health Controlled HBP Diabetes II Osteopenia L TKA - 12 yrs ago, R TKA - . Hypothyroid, hx of RBBB PT-OP-C Subjective Start: 06/03/20 18:31 Freq: Status: Active Protocol: Document 10/07/20 09:05 LRN (Rec: 10/07/20 09:47 LRN [id number]) OP-PT Subjective Patient Comments Patient Comments Still walking. Walking around the house using the canes. When walking in the yard when ground is dry, uses 2 canes. Pt stated she probably will use a walker or 2 canes outside the home for walking on level surfaces. She will choose to use 2 canes vs one cane. PT-OP-E Functional Tests Start: 06/03/20 18:31 Freq: Status: Active Protocol: Document 09/09/20 08:13 LRN (Rec: 09/09/20 09:00 LRN [id number]) Functional Tests Timed Up and Go (TUG) Score 29 secs Cane R; 32 secs Cane L . Comments Cane, used hand/cane to stand up TUG Impairment Rating 100% Impaired (Score 20) PT-OP-G Mobility & Gait Start: 06/03/20 18:31 Freq: Status: Active Protocol: Document 06/06/20 12:47 LRN (Rec: 06/06/20 17:10 LRN [id number]) OP Mobility Evaluation Bed Mobility Supine to and from Sit Independent Transfers Sit to Stand Independent OP Gait Assessment Gait Gait Assistance Required: Independent Able to Maintain Weight Bearing Status Yes During Gait Assistive Devices Assistive Device Front Wheeled Walker Gait Deviations General Gait Pattern Flexed Trunk,Narrow Based Gait Factors Limiting Gait Function Factors Limiting Gait Function Decreased Strength,Pain Comments Gait Comments Pt's hips show excessive pelvic lateral shift when weight bearing. Stair Climbing Evaluation Evaluation Level of Assist On Stairs Independent Technique/Endurance Stair Climbing Technique Step to Step Comments Stair Climbing Comments Pt reports her gait pattern has not changed since her last rehab program 01/01/20-02/14. She ambulates up stairs step to step while holding onto one railing. She descends stair by holding onto one railing and going backwards. PT-OP-J Posture/Palpation/Skin Start: 06/03/20 18:31 Freq: Status: Active Protocol: Document 06/06/20 12:47 LRN (Rec: 06/06/20 13:38 LRN [id number]) Posture Evaluation Position Standing Head/C-Spine Posture Forward Head L-Spine Posture Increased Lordosis Pelvis Posture Anteriorly Tilted Weight Distribution Balanced Comments Posture Comments Flexed at hips 15 deg's Palpation Assessment Location R hip Palpation Location Superior to Greater trochanter L hip Palpation Location TFL muscle belly, Superior to Greater trochanter Palpation Findings Tenderness PT-OP-K Range of Motion Start: 06/03/20 18:31 Freq: Status: Active Protocol: Document 06/06/20 12:47 LRN (Rec: 06/06/20 13:38 LRN [id number]) Hip Goniometric Range of Motion Hip Right Passive Testing Position Supine except ext in prone Straight Leg Raise 60 Extension 5 Abduction 25 Internal Rotation 45 External Rotation 60 Left Passive Testing Position Supine except ext in prone Straight Leg Raise 80 Extension 3 Abduction 32 Internal Rotation 60 External Rotation 60 PT-OP-M Strength Start: 06/03/20 18:31 Freq: Status: Active Protocol: Document 10/03/20 08:17 LRN (Rec: 10/03/20 09:20 LRN [id number]) Hip Strength Hip Manual Muscle Testing Right Flexion (L2) 5 Normal Extension (S1) 3+ Fair+ Abduction 2- Poor- Adduction 3 Fair External Rotation 3+ Fair+ Internal Rotation 3+ Fair+ Left Flexion (L2) 5 Normal Extension (S1) 3- Fair- Abduction 2- Poor- Adduction 3 Fair External Rotation 4 Good Internal Rotation 3 Fair PT-OP-Q Treatments Start: 06/03/20 18:31 Freq: Status: Active Protocol: Document 10/07/20 09:05 LRN (Rec: 10/07/20 09:47 LRN [id number]) Therapeutic Exercises Standing Exercises Hip hike Standing Exercise Name Hip Hike holding 5 secs ( working control L, strength R) Side bilateral Reps/Minutes 15' both hand support and 5' with one hand Comments Phys cuing throughout ex (feet side by side, knee straight, ft off ground) Trunk rot Standing Exercise Name Trunk rot (arms crossed over, body 90 deg from front facing) Side bilateral Resistance Lev 3 T-Band, single band Reps/Minutes 15 x 3 Comments phys cuing Gait Training Gait Activity Gait w/o hip drop Description Gait trng w/1 side support to prevent hip drop on opp side standing leg Device Used // bars, 1 support, to challenging maintain with no support. Distance/Duration 10' Treatment Focus preventing hip drop, QL contraction with legs straight . Comments Focus at end: Stepping with R LE. Cue TA and hip hike elevation to allow level pelvis during swing through Gait with Assist Device Description Gait w/2cane . Device Used 2 Cane(s) Level of Assistance CGA w/gait belt Surface Level Distance/Duration 5' Treatment Focus Preventing excessive hip sway and drop on opposite side. Comments cued R hip hike advancing LE, glut facilitation on standing LE PT-OP-T Assessment and Plan Start: 06/03/20 18:31 Freq: Status: Active Protocol: Document 10/07/20 09:05 MG (Rec: 10/07/20 09:47 LRN [id number]) Physical Therapy Assessment Goals Four Impairment Lacks appropriate HEP Senior Engineering Technician Goal (LTG) Pt will be independent on a self care HEP. LTG Duration 11/27/20 (08/29/20: Progressing) 3 Impairment LEFS score 48/80 (48-62 score is 20-39% impairment) Senior Engineering Technician Goal (LTG) Improve pt function per LEFS of 52 or greater (48-62 score is 20-39% impairment). (08/22/20: LEFS score of 57/80 ) LTG Duration 08/30/20 (08/22/20: MET GOAL) 2 Impairment decreased Nathan hip strength Short Term Goal (STG) Increase Nathan hip strength 1/2 grade with focus on hip AB ( Initial strength: Flex is 3/5 nathan, Ext is 3+/5 R, 3-/5 L; AB is 2-/5 bilateral; AD is 3-/5 R, 3+/5 L; ER is 4/5 R, 3+/5 L; IR s 3+/5 R, 3-/5 L). (10/03/20: Flex 5/5 nathan-Goal Met; Ext, 3-/5 nathan; AB is 2-/5 bilateral; AD is 3/5 nathan-Goal Met left; ER is 4/ R, 3 +/5 L ; IR is 3+/5 R, 3/5 L). STG Duration 11/07/20 (10/03/20: Overall, flex, L hip IR achieved, QL strength increasin) Intermediate Goal (LTG) Increase Nathan hip AB strength to 4/5 to improve functional mobility with gait. LTG Duration 11/27/20 (07/14/20: NOT MET) 1 Impairment antalgic gait with device Short Term Goal (STG) Patient able to ambulate with minimal limp on level surface with 1-2 canes or walking sticks. (07/03/20: Pt ambs with 2 SPC with minimal hip shift on WBing). STG Duration 07/02/20 (07/03/20: MET GOAL) Intermediate Goal (LTG) Patient able to ambulate safely with 2 cane on level surface outside the home. LTG Duration 11/27/20 (07/14/20: NOT MET). Progress Towards Goals Progress Comments LTG #1 changed for more realistic goal of gait outside home with 2 canes safely on level surface instead of 1 cane. Assessment Summary Assessment Change of Goal #1 for outside gait on level with 2 canes instead of 1 cane for pt safety with gait. With gait, L hip hike with R hand support is weak compared to R. Pt is visibly limited in active range with AB, ext & L hip IR. Pt weaker wth R hip AB and AD bilaterally. Gait with 2 canes is very good with very minimal hip sway. Physical Therapy Plan Frequency and Duration Frequency of Treatment 2x/Week Plan of Care Start Date 09/30/20 Plan of Care End Date 11/27/20 Next Visit Focus/Plan Next Note Type Treatment Note Next Visit Plan Pt choosing to change goal #1 from walking outside home with 1 cane to 2 canes safely. Focus on trunk SB, R>L & hip AB strengthening (add sidelie) . Gait training for gait with 2 canes on even surface, might try uneven surface.
--- NOTE | 2020-10-09 09:07 | PT.OTN ---
Current Diagnoses Trochanteric bursitis, right hip (10/09/20) Trochanteric bursitis, left hip (10/09/20) Iliotibial band syndrome, left leg (10/09/20) Physical Therapy Treatment Note PT-OP-A Visit Information Start: 06/03/20 18:31 Freq: Status: Active Protocol: Document 10/09/20 08:16 LRN (Rec: 10/09/20 09:06 LRN [id number]) Out-Patient Physical Therapy Visit Information Visit Information Visit Type Treatment Note Visit Note 3 after PN Visit Start Time 08:17 Visit Stop Time 08:58 Total Visit Minutes 41 Visit Number 33 Evaluation Information Evaluation Date 06/06/20 Precautions Precautions Diabetes II Osteopenia Nathan TKA Bruises easily Hx of RBBB PT-OP-B Current Condition Start: 06/03/20 18:31 Freq: Status: Active Protocol: Document 06/06/20 12:47 LRN (Rec: 06/06/20 13:38 LRN [id number]) Current Condition History of Current Condition Onset Date 10/2019 Current Complaints Nathan hips wobble when walking when not using a walker. History of Current Condition The pt is very familiar to me. She was being seen earily this year for similar diagnosis' prior to the onset of the COVID 19 Pandemic. See developmental history below. Pt is now being referred for bilateral Trochanteric Bursitis and left IT band tendonitis. Pt reports initial onset of bilateral hip pain that started as her knee rehab was ending in Oct. She states her knees are good now. Her problem is her hips. She states they want to wobble . They go from side to side and it is starting to bother her back. Future Testing and Treatments Planned None Developmental History Developmental History Medical Records indicate pt had 4 months of PT after a L knee surgery towards the end of 2018. She had reported trouble walking for over a year. She then had therapy for L trochanteric bursitis of the L hip and IT band syndrome. She had a cortisone injection in the L hip 12/03/19 with pain relief. She also had occasional R hip pain. She was in L hip rehab from 01/01/20 to 02/14/20 with her rehabilitation interrupted due to COVID 19 pandemic. Pt return today for bilateral Trochanteric Bursitis and left IT band tendonitis. Treatment Goals Patient/Caregiver Goals Pt goal is to be able to walk with less hip sway and with a cane. Prior Functional Status Baseline Function- ADL's Independent Baseline Function- Mobility Independent Baseline Function- Gait Walks w/cane & FWW Baseline Function- Recreation/Hobbies Pool ex 3x/week, last time exercised was in 2018 Baseline Function- Other Stairs: Goes backwards descending, ascending 1 step at time. Uses both hands on 1 rail. Current Functional Impairments (Reported) Functional Limitations- ADL's Walking with wobbly hips causing back pain. Functional Limitations- Mobility/Gait Walks with FWW. Functional Limitations- Other 14 stairs going down to basement and 6 stairs going up to outside. Railing on boths sides. Personal Factors Other Personal Factors That May Effect Spouse the pt feels is of Therapy/Recovery declining health Controlled HBP Diabetes II Osteopenia L TKA - 12 yrs ago, R TKA - . Hypothyroid, hx of RBBB PT-OP-C Subjective Start: 06/03/20 18:31 Freq: Status: Active Protocol: Document 10/09/20 08:16 LRN (Rec: 10/09/20 09:06 LRN [id number]) OP-PT Subjective Patient Comments Patient Comments States she did not get to walk yesterday but will try 2 canes outside walking. PT-OP-E Functional Tests Start: 06/03/20 18:31 Freq: Status: Active Protocol: Document 09/09/20 08:13 LRN (Rec: 09/09/20 09:00 LRN [id number]) Functional Tests Timed Up and Go (TUG) Score 29 secs Cane R; 32 secs Cane L . Comments Cane, used hand/cane to stand up TUG Impairment Rating 100% Impaired (Score 20) PT-OP-G Mobility & Gait Start: 06/03/20 18:31 Freq: Status: Active Protocol: Document 06/06/20 12:47 LRN (Rec: 06/06/20 17:10 LRN [id number]) OP Mobility Evaluation Bed Mobility Supine to and from Sit Independent Transfers Sit to Stand Independent OP Gait Assessment Gait Gait Assistance Required: Independent Able to Maintain Weight Bearing Status Yes During Gait Assistive Devices Assistive Device Front Wheeled Walker Gait Deviations General Gait Pattern Flexed Trunk,Narrow Based Gait Factors Limiting Gait Function Factors Limiting Gait Function Decreased Strength,Pain Comments Gait Comments Pt's hips show excessive pelvic lateral shift when weight bearing. Stair Climbing Evaluation Evaluation Level of Assist On Stairs Independent Technique/Endurance Stair Climbing Technique Step to Step Comments Stair Climbing Comments Pt reports her gait pattern has not changed since her last rehab program 01/01/20-02/14. She ambulates up stairs step to step while holding onto one railing. She descends stair by holding onto one railing and going backwards. PT-OP-J Posture/Palpation/Skin Start: 06/03/20 18:31 Freq: Status: Active Protocol: Document 06/06/20 12:47 LRN (Rec: 06/06/20 13:38 LRN [id number]) Posture Evaluation Position Standing Head/C-Spine Posture Forward Head L-Spine Posture Increased Lordosis Pelvis Posture Anteriorly Tilted Weight Distribution Balanced Comments Posture Comments Flexed at hips 15 deg's Palpation Assessment Location R hip Palpation Location Superior to Greater trochanter L hip Palpation Location TFL muscle belly, Superior to Greater trochanter Palpation Findings Tenderness PT-OP-K Range of Motion Start: 06/03/20 18:31 Freq: Status: Active Protocol: Document 06/06/20 12:47 LRN (Rec: 06/06/20 13:38 LRN [id number]) Hip Goniometric Range of Motion Hip Right Passive Testing Position Supine except ext in prone Straight Leg Raise 60 Extension 5 Abduction 25 Internal Rotation 45 External Rotation 60 Left Passive Testing Position Supine except ext in prone Straight Leg Raise 80 Extension 3 Abduction 32 Internal Rotation 60 External Rotation 60 PT-OP-M Strength Start: 06/03/20 18:31 Freq: Status: Active Protocol: Document 10/03/20 08:17 LRN (Rec: 10/03/20 09:20 LRN [id number]) Hip Strength Hip Manual Muscle Testing Right Flexion (L2) 5 Normal Extension (S1) 3+ Fair+ Abduction 2- Poor- Adduction 3 Fair External Rotation 3+ Fair+ Internal Rotation 3+ Fair+ Left Flexion (L2) 5 Normal Extension (S1) 3- Fair- Abduction 2- Poor- Adduction 3 Fair External Rotation 4 Good Internal Rotation 3 Fair PT-OP-Q Treatments Start: 06/03/20 18:31 Freq: Status: Active Protocol: Document 10/09/20 08:16 LRN (Rec: 10/09/20 09:06 LRN [id number]) Therapeutic Exercises Standing Exercises Side bending Standing Exercise Name Sidebending Side right Resistance Blue sport cord Equipment Used Sport cord w/strap around upper chest Reps/Minutes 6' (10x3) Comments Phys & v. cuing to SB/hands down vs swaying Hip hike Standing Exercise Name Hip Hike holding 5 secs ( working control L, strength R) Side bilateral Reps/Minutes 5' both hand support and 10' with one hand Comments Phys cuing throughout ex (feet side by side, knee straight, ft off ground) Trunk Flex Standing Exercise Name Trunk Flex Resistance Blue Sport cord w/strap around upper chest Reps/Minutes 20 x 3 Comments Phys cuing & stabilizing initially needed to keep hip flex out of ex. Trunk rot Standing Exercise Name Trunk rot (arms crossed over, body 90 deg from front facing) Side bilateral Resistance Lev 3 T-Band, single band Reps/Minutes 15 x 3 Comments phys cuing Gait Training Gait Activity Gait w/o hip drop Description Gait trng w/1 side support to prevent hip drop on opp side standing leg Device Used // bars, 1 support, to challenging maintain with no support. Distance/Duration 10' Treatment Focus preventing hip drop, QL contraction with legs straight . Comments Focus at end: Stepping with R LE. Cue TA and hip hike elevation to allow level pelvis during swing through Gait with Assist Device Description Gait w/2cane . Device Used 2 Cane(s) Level of Assistance CGA w/gait belt Surface Level Distance/Duration 11' Treatment Focus Preventing excessive hip sway and drop on opposite side. Comments cued L>R hip hike and activation of TFL/GM facilitation on standing LE ( opposite side of hip hike) before advancing LE. PT-OP-T Assessment and Plan Start: 06/03/20 18:31 Freq: Status: Active Protocol: Document 10/09/20 08:16 LRN (Rec: 10/09/20 09:06 LRN [id number]) Physical Therapy Assessment Goals Four Impairment Lacks appropriate HE[facility] [employer] Goal (LTG) Pt will be independent on a self care HEP. LTG Duration 11/27/20 (08/29/20: Progressing) 2 Impairment decreased Nathan hip strength Short Term Goal (STG) Increase Nathan hip strength 1/2 grade with focus on hip AB ( Initial strength: Flex is 3/5 nathan, Ext is 3+/5 R, 3-/5 L; AB is 2-/5 bilateral; AD is 3-/5 R, 3+/5 L; ER is 4/5 R, 3+/5 L; IR s 3+/5 R, 3-/5 L). (10/03/20: Flex 5/5 nathan-Goal Met; Ext, 3-/5 nathan; AB is 2-/5 bilateral; AD is 3/5 nathan-Goal Met left; ER is 4/ R, 3 +/5 L ; IR is 3+/5 R, 3/5 L). STG Duration 11/07/20 (10/03/20: Overall, flex, L hip IR achieved, QL strength increasin) Halfway Goal (LTG) Increase Nathan hip AB strength to 4/5 to improve functional mobility with gait. LTG Duration 11/27/20 (07/14/20: NOT MET) 1 Impairment antalgic gait with device Short Term Goal (STG) Patient able to ambulate with minimal limp on level surface with 1-2 canes or walking sticks. (07/03/20: Pt ambs with 2 SPC with minimal hip shift on WBing). STG Duration 07/02/20 (07/03/20: MET GOAL) Halfway Goal (LTG) Patient able to ambulate safely with 2 cane on level surface outside the home. LTG Duration 11/27/20 (07/14/20: NOT MET). Progress Towards Goals Progress Comments Improved awareness of activation of TFL/GM on standing leg before swing through of opposite side. Good mechanics wth R swing through today. Assessment Summary Assessment Pt not able to maintain L hip hike with L swing through to start, but improved with motor control leaning practice of swing through phase. Physical Therapy Plan Next Visit Focus/Plan Next Note Type Treatment Note Next Visit Plan Focus on trunk SB, R>L & hip AB strengthening (add sidelie) . Gait training for gait with 2 canes on even surface, might try uneven surface.
--- NOTE | 2020-10-17 17:55 | PT-OP ANOTE ---
Late entry: Message in message box received 10/16/20 that pt had heart attack and therapy appointments canceled. Per phone conversation today pt reports she had hear attack 10/11/20 and was hospitalized 3 days and is to take it easy. Informed pt she was being discharged from therapy and recommended pt discuss with employee relation manager a referral to cardiac rehab when MD thinks it is appropriate. Pt is being discharged from therapy due to change in medical status.
--- NOTE | 2020-10-17 18:05 | PT.OPDS ---
Current Diagnoses Trochanteric bursitis, right hip (10/09/20) Trochanteric bursitis, left hip (10/09/20) Iliotibial band syndrome, left leg (10/09/20) Visit Care Team Role Provider Type Juli Harrell MD Primary Care Provider Non-Staff Specialty: Internal Medicine Address: [address] [place] [address], [id number] Email: Ander Billings MD Attending Provider Physician Referring Provider Specialty: Orthopedic Surgery Address: [address] [place] [address], [id number] Email: [email or web address] Visit Number Visit Number [phone] Discharge Summary PT-OP-B Current Condition Start: 06/03/20 18:31 Freq: Status: Active Protocol: Document 06/06/20 12:47 LRN (Rec: 06/06/20 13:38 LRN [id number]) Current Condition History of Current Condition Onset Date 10/2019 Current Complaints Radha hips wobble when walking when not using a walker. History of Current Condition The pt is very familiar to me. She was being seen earily this year for similar diagnosis' prior to the onset of the COVID 19 Pandemic. See developmental history below. Pt is now being referred for bilateral Trochanteric Bursitis and left IT band tendonitis. Pt reports initial onset of bilateral hip pain that started as her knee rehab was ending in Oct. She states her knees are good now. Her problem is her hips. She states they want to wobble . They go from side to side and it is starting to bother her back. Future Testing and Treatments Planned None Developmental History Developmental History Medical Records indicate pt had 4 months of PT after a L knee surgery towards the end of 2018. She had reported trouble walking for over a year. She then had therapy for L trochanteric bursitis of the L hip and IT band syndrome. She had a cortisone injection in the L hip 12/03/19 with pain relief. She also had occasional R hip pain. She was in L hip rehab from 01/01/20 to 02/14/20 with her rehabilitation interrupted due to COVID 19 pandemic. Pt return today for bilateral Trochanteric Bursitis and left IT band tendonitis. Treatment Goals Patient/Caregiver Goals Pt goal is to be able to walk with less hip sway and with a cane. Prior Functional Status Baseline Function- ADL's Independent Baseline Function- Mobility Independent Baseline Function- Gait Walks w/cane & FWW Baseline Function- Recreation/Hobbies Pool ex 3x/week, last time exercised was in 2018 Baseline Function- Other Stairs: Goes backwards descending, ascending 1 step at time. Uses both hands on 1 rail. Current Functional Impairments (Reported) Functional Limitations- ADL's Walking with wobbly hips causing back pain. Functional Limitations- Mobility/Gait Walks with FWW. Functional Limitations- Other 14 stairs going down to basement and 6 stairs going up to outside. Railing on boths sides. Personal Factors Other Personal Factors That May Effect Spouse the pt feels is of Therapy/Recovery declining health Controlled HBP Diabetes II Osteopenia L TKA - 12 yrs ago, R TKA - . Hypothyroid, hx of RBBB PT-OP-C Subjective Start: 06/03/20 18:31 Freq: Status: Active Protocol: Document 10/17/20 17:59 LRN (Rec: 10/17/20 18:05 LRN [id number]) OP-PT Subjective Patient Comments Patient Comments Message in message box received 10/16/20 that pt had heart attack and therapy appointments canceled. Per phone conversation today pt reports she had hear attack and was hospitalized 3 days and is to take it easy. Informed pt she was being discharged from therapy and recommended pt discuss with multiple drum sander a referral to cardiac rehab when MD thinks it is appropriate. PT-OP-E Functional Tests Start: 06/03/20 18:31 Freq: Status: Active Protocol: Document 09/09/20 08:13 LRN (Rec: 09/09/20 09:00 LRN [id number]) Functional Tests Timed Up and Go (TUG) Score 29 secs Cane R; 32 secs Cane L . Comments Cane, used hand/cane to stand up TUG Impairment Rating 100% Impaired (Score 20) PT-OP-G Mobility & Gait Start: 06/03/20 18:31 Freq: Status: Active Protocol: Document 06/06/20 12:47 LRN (Rec: 06/06/20 17:10 LRN [id number]) OP Mobility Evaluation Bed Mobility Supine to and from Sit Independent Transfers Sit to Stand Independent OP Gait Assessment Gait Gait Assistance Required: Independent Able to Maintain Weight Bearing Status Yes During Gait Assistive Devices Assistive Device Front Wheeled Walker Gait Deviations General Gait Pattern Flexed Trunk,Narrow Based Gait Factors Limiting Gait Function Factors Limiting Gait Function Decreased Strength,Pain Comments Gait Comments Pt's hips show excessive pelvic lateral shift when weight bearing. Stair Climbing Evaluation Evaluation Level of Assist On Stairs Independent Technique/Endurance Stair Climbing Technique Step to Step Comments Stair Climbing Comments Pt reports her gait pattern has not changed since her last rehab program 01/01/20-02/14. She ambulates up stairs step to step while holding onto one railing. She descends stair by holding onto one railing and going backwards. PT-OP-J Posture/Palpation/Skin Start: 06/03/20 18:31 Freq: Status: Active Protocol: Document 06/06/20 12:47 LRN (Rec: 06/06/20 13:38 LRN [id number]) Posture Evaluation Position Standing Head/C-Spine Posture Forward Head L-Spine Posture Increased Lordosis Pelvis Posture Anteriorly Tilted Weight Distribution Balanced Comments Posture Comments Flexed at hips 15 deg's Palpation Assessment Location R hip Palpation Location Superior to Greater trochanter L hip Palpation Location TFL muscle belly, Superior to Greater trochanter Palpation Findings Tenderness PT-OP-K Range of Motion Start: 06/03/20 18:31 Freq: Status: Active Protocol: Document 06/06/20 12:47 LRN (Rec: 06/06/20 13:38 LRN [id number]) Hip Goniometric Range of Motion Hip Right Passive Testing Position Supine except ext in prone Straight Leg Raise 60 Extension 5 Abduction 25 Internal Rotation 45 External Rotation 60 Left Passive Testing Position Supine except ext in prone Straight Leg Raise 80 Extension 3 Abduction 32 Internal Rotation 60 External Rotation 60 PT-OP-M Strength Start: 06/03/20 18:31 Freq: Status: Active Protocol: Document 10/03/20 08:17 LRN (Rec: 10/03/20 09:20 LRN [id number]) Hip Strength Hip Manual Muscle Testing Right Flexion (L2) 5 Normal Extension (S1) 3+ Fair+ Abduction 2- Poor- Adduction 3 Fair External Rotation 3+ Fair+ Internal Rotation 3+ Fair+ Left Flexion (L2) 5 Normal Extension (S1) 3- Fair- Abduction 2- Poor- Adduction 3 Fair External Rotation 4 Good Internal Rotation 3 Fair PT-OP-T Assessment and Plan Start: 06/03/20 18:31 Freq: Status: Active Protocol: Document 10/17/20 17:59 LRN (Rec: 10/17/20 18:05 LRN [id number]) Physical Therapy Assessment Goals Four Impairment Lacks appropriate HEP Web Publisher Goal (LTG) Pt will be independent on a self care HEP. LTG Duration 11/27/20 (08/29/20: Progressing) 3 Impairment LEFS score 48/80 (48-62 score is 20-39% impairment) Web Publisher Goal (LTG) Improve pt function per LEFS of 52 or greater (48-62 score is 20-39% impairment). (08/22/20: LEFS score of 57/80 ) LTG Duration 08/30/20 (08/22/20: MET GOAL) 2 Impairment decreased Radha hip strength Short Term Goal (STG) Increase Radha hip strength 1/2 grade with focus on hip AB ( Initial strength: Flex is 3/5 radha, Ext is 3+/5 R, 3-/5 L; AB is 2-/5 bilateral; AD is 3-/5 R, 3+/5 L; ER is 4/5 R, 3+/5 L; IR s 3+/5 R, 3-/5 L). (10/03/20: Flex 5/5 radha-Goal Met; Ext, 3-/5 radha; AB is 2-/5 bilateral; AD is 3/5 radha-Goal Met left; ER is 4/ R, 3 +/5 L ; IR is 3+/5 R, 3/5 L). STG Duration 11/07/20 (10/03/20: Overall, flex, L hip IR achieved, QL strength increasin) Web Publisher Goal (LTG) Increase Radha hip AB strength to 4/5 to improve functional mobility with gait. LTG Duration 11/27/20 (07/14/20: NOT MET) 1 Impairment antalgic gait with device Short Term Goal (STG) Patient able to ambulate with minimal limp on level surface with 1-2 canes or walking sticks. (07/03/20: Pt ambs with 2 SPC with minimal hip shift on WBing). STG Duration 07/02/20 (07/03/20: MET GOAL) Half-Way Goal (LTG) Patient able to ambulate safely with 2 cane on level surface outside the home. LTG Duration 11/27/20 (07/14/20: NOT MET). Assessment Summary Assessment Pt suffered heart attack 10/12; therefore pt is being discharged due to change in medical status. Pt is unavailable for final assessment. Assessments above are at her last therapy appointment. Most goals met. Pt was working on improving her hip strength, safety with gait outside her home with 2 canes and her HEP at time of discharge. Physical Therapy Plan Discharge Physical Therapy Discharge Reasons Change in Medical Status Discharge Comments Pt is being discharged from therapy due to change in medical status. Recommend cardiac rehabilitation when appropriate.
== END 2020-11-27 08:35 ==
LOC: PHYS 08:15
PROVIDERS: PCP Internal Medicine; Referring Provider Orthopaedic Surgery; Visit Provider Orthopaedic Surgery
DX: M70.61 Trochanteric bursitis, right hip (principal); M70.62 Trochanteric bursitis, left hip; M76.32 Iliotibial band syndrome, left leg
CPT/HCPCS: 97110; 97112; 97116; 97162; 97535

== ENCOUNTER 2020-10-11 10:04 | Emergency (ER) | payer MEDICARE, OTHER, SELFPAY ==
[2019-06-27 14:40] VITALS: BMI 30.7
[2020-10-11] VITALS (20 sets, daily range): BP systolic 179–252; BP diastolic 83–114; PULSE 66–92; RESP 20–57; TEMP 36.7; O2SAT 90–99; BMI 28.1
--- NOTE | 2020-10-11 10:23 | ED.CHESTPAIN ---
HPI - Chest Pain General Chief Complaint: Chest Pain Stated Complaint: chest pain/ with lt arm Time Seen by Provider: 10/11/20 10:14 Source: patient Mode of arrival: Wheelchair Limitations: no limitations History of Present Illness HPI narrative: The patient is a 85-year-old female with history of hypertension presenting with chest pain radiating to her left arm. She says she woke in the evening and noted that she had some chest discomfort and left arm pain. It was actually worse when lie down and better when she sat up. She denies any shortness of breath. She has never experienced anything like this before. She denies any radiation to his her back. She has a hard time describing it she calls it may be dull ache. No known history of coronary artery disease. She is noted to be quite hypertensive this morning in the emergency department and states that she has not taken her blood pressure medication. She is currently still having chest discomfort but she says it does come and go. MD complaint: chest pain Duration: intermittent Onset: during rest Pain location: left chest Severity: moderate Quality: aching Pain radiation: LUE Relieving factors: nothing and leaning forward Related Data Home Medications Medication Instructions Recorded Confirmed amlodipine 5 mg PO DAILY 03/08/19 03/08/19 ascorbic acid (vitamin C) [Vitamin 250 mg PO DAILY 03/08/19 06/27/19 C] diclofenac sodium [Voltaren] 2 g TOPICAL QAM 03/08/19 03/08/19 ferrous sulfate 324 mg PO DAILY 03/08/19 03/08/19 levothyroxine [Synthroid] 112 mcg PO DAILY 03/08/19 03/08/19 naproxen sodium [Aleve] 220 mg PO DAILY 03/08/19 06/27/19 Previous Rx's Medication Instructions Recorded acetaminophen 975 mg PO TID #60 tab 06/30/19 aspirin 81 mg PO BID #0 tab 06/30/19 ondansetron HCl [Zofran] 4 mg PO Q6-8H PRN #20 tab 06/30/19 Allergies Allergy/AdvReac Type Severity Reaction Status Date / Time Penicillins [PENICILLINS] Allergy Severe My throat Verified 06/27/19 08:01 closed up when I was 16 ciprofloxacin [From Cipro] AdvReac Severe Nausea, Verified 06/27/19 08:01 vomiting ibuprofen [IBUPROFEN] AdvReac Severe Nausea Verified 06/27/19 08:01 levofloxacin AdvReac Severe Nausea, Verified 06/27/19 08:01 vomiting moxifloxacin AdvReac Severe Nausea, Verified 06/27/19 08:01 vomiting Review of Systems Review of Systems Narrative: GENERAL: Denies chills, fatigue, malaise, fever, sweats, travel HEENT: Denies sinus pain, ear pain, sore throat, difficulty swallowing, neck pain RESPIRATORY: Denies dyspnea, cough, wheezing, hemoptysis, sputum. CARDIOVASCULAR: See HPI GASTROINTESTINAL: Denies nausea, vomiting, abdominal pain, diarrhea, constipation, melena. : Denies dysuria, frequency, incontinence, hematuria, urinary retention, flank pain. MUSCULOSKELETAL: Denies weakness, joint pain, or bony pain SKIN: No rash, no erythema, no pruritus NEUROLOGIC: Denies weakness, dizziness, headache, numbness, change in speech, confusion PSYCHIATRIC: No concerning psychosocial issues. 12 point review of systems is negative except for those stated above and HPI Patient History Medical History Anemia (Acute) Aortic regurgitation (Acute) Arthritis (Acute) Diabetes (Acute) Easy bruisability (Acute) Edema (Acute) HLD (hyperlipidemia) (Acute) HTN (hypertension) (Acute) Hypothyroidism (Acute) Injury of right thigh (Acute ~2017) Iron deficiency anemia (Acute) Lipoma (Acute ~06/2014) Osteoarthritis (Acute) RBBB (right bundle branch block) (Acute) Spinal stenosis (Acute) Surgical History History of arthroplasty of left knee (Acute ~2006) Hx of reduction mammoplasty (Acute) Hx of tonsillectomy (Acute) Status post bilateral cataract extraction (Acute ~2014) Social History household members: spouse Smoking Status: Never smoker alcohol intake: never Smoking Status: Never smoker alcohol intake frequency: 0-2 drinks per day Substance Use Type: does not use Exam Initial Vital Signs Initial Vital Signs: Vital Signs Pulse Rate 86 10/11/20 10:15 Pulse Oximetry 97 10/11/20 10:15 GENERAL: Well-appearing elderly female and in no acute distress. HEENT: Head atraumatic,EOMI, pupils reactive, face symmetric, moist mucous membranes CARDIOVASCULAR: Regular rate and rhythm without murmurs, rubs or gallops. RESPIRATORY: Breath sounds equal bilaterally, no wheezes rales or rhonchi. ABDOMEN: Soft, nontender. Normoactive bowel sounds all 4 quadrants. No guarding or rebound. EXTREMITIES: Normal range of motion, no clubbing or edema. Neurovascularly intact NEUROLOGICAL: Alert and oriented x4.Normal gait and speech. Cranial nerves II through XII grossly intact. SKIN: Warm, dry, no laceration, no petechiae, no rashes or lesions. Course Orders Ordered: ED Orders 10/11/20 10:22 EKG-12 Lead Stat 10/11/20 10:30 Complete Blood Count AUTO DIFF Stat Comprehensive Metabolic Panel Stat Lipase Stat Troponin & CK Cardiac Panel Stat 10/11/20 10:35 CT angio chest abdomen pelvis Stat 10/11/20 12:26 Troponin I Stat 10/11/20 13:00 COVID19 Stat Discontinued Medications Sodium Chloride (Normal Saline 0.9%) 1,000 mls @ 150 mls/hr IV CONT ANSON Last Admin: 10/11/20 10:45 Dose: 150 mls/hr Documented by: MMINOR Nitroglycerin (Nitroglycerin) 50 mg in 250 mls @ 1.5 mls/hr IV TITRATE ANSON; Protocol Labetalol HCl (Trandate) 10 mg IV NOW ONE Stop: 10/11/20 12:54 Last Admin: 10/11/20 12:58 Dose: 10 mg Documented by: MMINOR Nitroglycerin (Nitrostat) 0.4 mg SL NOW ONE Stop: 10/11/20 10:30 Last Admin: 10/11/20 10:44 Dose: 0.4 mg Documented by: MMINOR Nitroglycerin (Nitrostat) 0.4 mg SL NOW ONE Stop: 10/11/20 11:30 Last Admin: 10/11/20 11:31 Dose: 0.4 mg Documented by: MMINOR Vital Signs Vital signs: Vital Signs - 8 hr 10/11/20 10:15 10/11/20 10:17 10/11/20 10:30 Temperature 98.1 F Pulse Rate 86 92 H 81 Respiratory Rate 20 42 H Blood Pressure 252/114 H Pulse Oximetry 97 92 97 10/11/20 10:36 10/11/20 10:44 10/11/20 10:57 Temperature Pulse Rate 83 67 77 Respiratory Rate 37 H 41 H Blood Pressure 239/110 H 239/110 H 187/88 H Pulse Oximetry 97 90 L 10/11/20 11:00 10/11/20 11:30 10/11/20 11:31 Temperature Pulse Rate 82 71 69 Respiratory Rate 39 H 57 H Blood Pressure 179/84 H 203/88 H Pulse Oximetry 92 96 10/11/20 11:32 10/11/20 11:45 10/11/20 12:00 Temperature Pulse Rate 68 72 74 Respiratory Rate 32 H 30 H 22 Blood Pressure 203/88 H 180/83 H 198/88 H Pulse Oximetry 96 96 94 10/11/20 12:30 10/11/20 13:00 10/11/20 13:13 Temperature Pulse Rate 70 67 72 Respiratory Rate 33 H 35 H 43 H Blood Pressure 182/89 H Pulse Oximetry 99 97 97 10/11/20 13:30 10/11/20 13:43 10/11/20 13:44 Temperature Pulse Rate 68 67 Respiratory Rate 41 H Blood Pressure 206/86 H 190/87 H 190/87 H Pulse Oximetry 97 10/11/20 14:00 10/11/20 14:01 Temperature Pulse Rate 67 66 Respiratory Rate 24 22 Blood Pressure 187/84 H Pulse Oximetry 96 98 MDM - Chest Pain Lab Data Attestation: I reviewed the patient's lab results. Result diagrams: 10/11/20 10:30 10/11/20 10:30 Labs: Lab Results 10/11/20 10/11/20 10/11/20 Range/Units 10:30 10:30 12:26 WBC 9.2 (4.5-11.0) X10^3/uL RBC 5.18 (4.0-5.2) X10^6/uL Hgb 14.7 (12.0-16.0) g/dL Hct 44.1 (36-46) % MCV 85.0 (80-100) fL MCH 28.3 (26-34) PG MCHC 33.3 (30-36) % RDW 14.6 (11.6-14.8) % Plt Count 221 (150-400) X10^3/uL Neut % (Auto) 77.7 H (50-75) % Lymph % (Auto) 13.0 L (25-40) % Schuyler % (Auto) 7.5 (3-14) % Eos % (Auto) 1.0 L (2-4) % Baso % (Auto) 0.8 (0-2) % Neut # (Auto) 7200 H (3821-2333) /uL Lymph # (Auto) 1200 (8288-9705) /uL Schuyler # (Auto) 700 (0-900) /uL Eos # (Auto) 100 (0-450) /uL Baso # (Auto) 100 (0-100) /uL Sodium 137 (137-145) mmol/L Potassium 3.6 (3.4-5.1) mmol/L Chloride 103 (98-107) mmol/L Carbon Dioxide 29 (22-32) mmol/L BUN 27 H (7-17) mg/dL Creatinine 0.92 (0.52-1.04) mg/dL Estimated GFR 58.3 L (>60) mL/min BUN/Creatinine Ratio 29.3 H (6-22) Glucose 122 H (80-110) mg/dL Calcium 9.7 (8.4-10.2) mg/dL Total Bilirubin 0.7 (0.2-1.3) mg/dL AST 26 (14-36) IU/L ALT 14 (<35) IU/L Alkaline Phosphatase 105 (38-126) U/L Total Creatine Kinase 33 (30-135) U/L CK-MB (CK-2) TNP CK-MB (CK-2) Rel Index TNP Troponin I 0.039 H 0.066 H (0.01-0.034) ng/mL Total Protein 7.6 (6.3-8.2) g/dL Albumin 4.4 (3.5-5.0) g/dL Globulin 3.2 (1.7-4.1) g/dL Albumin/Globulin Ratio 1.4 (1.0-2.8) Lipase 95 (23-300) U/L COVID-19 PCR (Negative) 10/11/20 Range/Units 13:00 WBC (4.5-11.0) X10^3/uL RBC (4.0-5.2) X10^6/uL Hgb (12.0-16.0) g/dL Hct (36-46) % MCV (80-100) fL MCH (26-34) PG MCHC (30-36) % RDW (11.6-14.8) % Plt Count (150-400) X10^3/uL Neut % (Auto) (50-75) % Lymph % (Auto) (25-40) % Schuyler % (Auto) (3-14) % Eos % (Auto) (2-4) % Baso % (Auto) (0-2) % Neut # (Auto) (6007-4974) /uL Lymph # (Auto) (8291-7875) /uL Schuyler # (Auto) (0-900) /uL Eos # (Auto) (0-450) /uL Baso # (Auto) (0-100) /uL Sodium (137-145) mmol/L Potassium (3.4-5.1) mmol/L Chloride (98-107) mmol/L Carbon Dioxide (22-32) mmol/L BUN (7-17) mg/dL Creatinine (0.52-1.04) mg/dL Estimated GFR (>60) mL/min BUN/Creatinine Ratio (6-22) Glucose (80-110) mg/dL Calcium (8.4-10.2) mg/dL Total Bilirubin (0.2-1.3) mg/dL AST (14-36) IU/L ALT (<35) IU/L Alkaline Phosphatase (38-126) U/L Total Creatine Kinase (30-135) U/L CK-MB (CK-2) CK-MB (CK-2) Rel Index Troponin I (0.01-0.034) ng/mL Total Protein (6.3-8.2) g/dL Albumin (3.5-5.0) g/dL Globulin (1.7-4.1) g/dL Albumin/Globulin Ratio (1.0-2.8) Lipase (23-300) U/L COVID-19 PCR Negative (Negative) Imaging Data CT scan - chest: Radiologist's Impression: PROCEDURE: CT ANGIO CHEST ABDOMEN PELVIS INDICATIONS: chest pain- htn TECHNIQUE: Precontrast 5 mm thick sections acquired from the lung apices to the iliac crests. After the administration of intravenous contrast, 2.5 mm thick sections again acquired from the lung apices to the iliac crests. Maximum intensity projection (MIP) oblique sagittal and coronal reformats were then acquired. For radiation dose reduction, the following was used: automated exposure control. COMPARISON: None. FINDINGS: Image quality: Excellent. AORTA: No evidence of dissection or aneurysm. Mild plaque within the lower thoracic and abdominal aorta, causing mild diffuse stenosis. CHEST: Lungs and pleura: Mild patchy left lower lobe opacity, consistent with atelectasis versus scarring. No definite pneumonia, or edema.. No pleural effusions or pneumothorax. Central and peripheral airways are patent and normal in caliber. Mediastinum: Heart size is enlarged. There is calcification of the coronary vasculature. No pericardial effusion. No mediastinal or hilar adenopathy by size criteria. Central pulmonary arteries are normal in size. Esophagus is normal in caliber. Small hiatal hernia. Bones and chest wall: No axillary adenopathy by size criteria. Thyroid gland demonstrates bilateral nodules measuring less than 15 mm diameter. . No suspicious bony lesions. No vertebral body compression fractures. ABDOMEN: Vasculature: Celiac trunk and mesenteric arteries are patent. Renal arteries are also patent. Solid organs: Liver is normal in size and enhancement. Gallbladder is within normal limits . Biliary system is non dilated. Pancreas enhances normally. Spleen is normal in size and enhancement. No adrenal nodules. Both kidneys are normal in size and enhancement, without hydronephrosis. Peritoneum and bowel: No free fluid or air. Bowel loops are normal in caliber and wall thickness. Nodes and vessels: No retroperitoneal or mesenteric adenopathy by size criteria. Inferior vena cava is normal in morphology. Miscellaneous: No ventral hernias. PELVIS: Genitourinary: Bladder wall thickness is normal. Miscellaneous: No inguinal hernias or adenopathy. No ventral hernias. Bones: No suspicious bony lesions. No vertebral body compression fractures. IMPRESSION: 1. No evidence of aortic dissection or aneurysm. 2. Bilateral thyroid nodules; initial further assessment with nonemergent outpatient follow-up thyroid ultrasound is recommended. 3. Coronary artery disease. Cardiomegaly. Dictated by: Vera Sullivan M.D. on 10/11/2020 at 11:18 ECG Data Attestation: I personally reviewed and interpreted this ECG as follows: Prior ECG tracings: not available for review Interpretation: EKG 1. Sinus rhythm rate 78 p.r. interval 189 QRS 184 QTC 491 right bundle branch block noted no significant ST chief inches no T-wave inversions EKG 2. Sinus rhythm rate 73 right bundle-branch block no ST changes MDM Narrative Medical decision making narrative: Patient received 2 nitroglycerin and she was chest pain-free. Blood pressure initially decreased to 198 however it started increasing again. She has an indeterminate troponin, possible from secondary strain due to hypertension however she is having chest discomfort. CT was negative for dissection, but does show coronary artery disease. She remains chest pain-free however she does have a rising troponin and persistent hypertension. She is given a dose of labetalol which does not seem to help her blood pressure. Dr. sanchez, hospitalist at [facility], agrees with transfer. Unfortunately unable to get stress test over the weekend 1224- Dr. Mason, director process engineering at [facility] has been updated on patient's symptoms and test results agrees with transfer and recommends admitting to hospitalist 1250 Dr. Dale, hospitalist updated on his symptoms then test results and graciously accepts patient Patient has persistent hypertension rising troponin.. Discharge Plan Departure Patient Disposition: [facility] Clinical Impression: Hypertensive emergency Chest pain Qualifiers: Chest pain type: other chest pain Qualified Code(s): R07.89 - Other chest pain Discharge Date/Time: 10/11/20 14:21 Prescriptions: No Action amlodipine 5 mg Tablet 5 mg PO DAILY RF: 0 ascorbic acid (vitamin C) [Vitamin C] 250 mg Tablet 250 mg PO DAILY RF: 0 levothyroxine [Synthroid] 112 mcg Tablet 112 mcg PO DAILY RF: 0 ferrous sulfate 324 mg (65 mg iron) Tablet,Delayed Release (Dr/Ec) 324 mg PO DAILY RF: 0 diclofenac sodium [Voltaren] 1 % Gel 2 g TOPICAL QAM RF: 0 naproxen sodium [Aleve] 220 mg Capsule 220 mg PO DAILY RF: 0 acetaminophen 325 mg Tablet 975 mg PO TID Qty: 60 RF: 0 ondansetron HCl [Zofran] 4 mg tablet 4 mg PO Q6-8H PRN (Reason: nausea and vomiting) Qty: 20 RF: 0 aspirin 81 mg Tablet,Delayed Release (Dr/Ec) 81 mg PO BID Qty: 0 RF: 0 Referrals: Juli Harrell MD [Primary Care Provider] -
--- NOTE | 2020-10-11 10:35 | DI.CT.S_ITS ---
PROCEDURE: CT ANGIO CHEST ABDOMEN PELVIS INDICATIONS: chest pain- htn TECHNIQUE: Precontrast 5 mm thick sections acquired from the lung apices to the iliac crests. After the administration of intravenous contrast, 2.5 mm thick sections again acquired from the lung apices to the iliac crests. Maximum intensity projection (MIP) oblique sagittal and coronal reformats were then acquired. For radiation dose reduction, the following was used: automated exposure control. COMPARISON: None. FINDINGS: Image quality: Excellent. AORTA: No evidence of dissection or aneurysm. Mild plaque within the lower thoracic and abdominal aorta, causing mild diffuse stenosis. CHEST: Lungs and pleura: Mild patchy left lower lobe opacity, consistent with atelectasis versus scarring. No definite pneumonia, or edema.. No pleural effusions or pneumothorax. Central and peripheral airways are patent and normal in caliber. Mediastinum: Heart size is enlarged. There is calcification of the coronary vasculature. No pericardial effusion. No mediastinal or hilar adenopathy by size criteria. Central pulmonary arteries are normal in size. Esophagus is normal in caliber. Small hiatal hernia. Bones and chest wall: No axillary adenopathy by size criteria. Thyroid gland demonstrates bilateral nodules measuring less than 15 mm diameter. . No suspicious bony lesions. No vertebral body compression fractures. ABDOMEN: Vasculature: Celiac trunk and mesenteric arteries are patent. Renal arteries are also patent. Solid organs: Liver is normal in size and enhancement. Gallbladder is within normal limits . Biliary system is non dilated. Pancreas enhances normally. Spleen is normal in size and enhancement. No adrenal nodules. Both kidneys are normal in size and enhancement, without hydronephrosis. Peritoneum and bowel: No free fluid or air. Bowel loops are normal in caliber and wall thickness. Nodes and vessels: No retroperitoneal or mesenteric adenopathy by size criteria. Inferior vena cava is normal in morphology. Miscellaneous: No ventral hernias. PELVIS: Genitourinary: Bladder wall thickness is normal. Miscellaneous: No inguinal hernias or adenopathy. No ventral hernias. Bones: No suspicious bony lesions. No vertebral body compression fractures. IMPRESSION: 1. No evidence of aortic dissection or aneurysm. 2. Bilateral thyroid nodules; initial further assessment with nonemergent outpatient follow-up thyroid ultrasound is recommended. 3. Coronary artery disease. Cardiomegaly. Dictated by: Vera Sullivan M.D. on 10/11/2020 at 11:18 Approved by: Vera Sullivan M.D. on 10/11/2020 at 11:21
[2020-10-11 10:43] LABS: Add Manual Diff / Slide Review NO; Basophils Absolute Auto 100 /uL (0-100); Basophils Percent Auto 0.8 % (0-2); Eosinophils Absolute Auto 100 /uL (0-450); Hematocrit 44.1 % (36-46); Hemoglobin 14.7 g/dL (12.0-16.0); Lymphocytes Absolute Auto 1200 /uL (1100-4500); Mean Corpuscular HGB Conc 33.3 % (30-36); Mean Corpuscular Hemoglobin 28.3 PG (26-34); Monocytes Absolute Auto 700 /uL (0-900); Monocytes Percent Auto 7.5 % (3-14); Neutrophils Absolute Auto 7200 /uL (1500-7000); Neutrophils Percent Auto 77.7 % (50-75); Platelet Count 221 X10^3/uL (150-400); Red Blood Cell Count 5.18 X10^6/uL (4.0-5.2); Red Cell Distribution Width 14.6 % (11.6-14.8); White Blood Cell Count 9.2 X10^3/uL (4.5-11.0)
[2020-10-11] MEDS: NITROGLYCERIN 0.4 MG SL TAB SL ×2 (10:44→11:31)
[2020-10-11] MEDS: SODIUM CHLORIDE 0.9% 1,000 ML 150 ML IV (10:45)
[2020-10-11 10:54] LABS: Alanine Aminotransferase 14 IU/L (<35); Albumin 4.4 g/dL (3.5-5.0); Albumin Globulin Ratio 1.4 (1.0-2.8); Alkaline Phosphatase 105 U/L (38-126); Aspartate Aminotransferase 26 IU/L (14-36); BUN Creatinine Ratio 29.3 (6-22); Bilirubin Total 0.7 mg/dL (0.2-1.3); Blood Urea Nitrogen 27 mg/dL (7-17); Calcium 9.7 mg/dL (8.4-10.2); Carbon Dioxide 29 mmol/L (22-32); Chloride 103 mmol/L (98-107); Creatine Kinase 33 U/L (30-135); Estimated Glomerular Filt Rate 58.3 mL/min (>60); Globulin 3.2 g/dL (1.7-4.1); Glucose 122 mg/dL (80-110); HEMOLYSIS 16 (0-50); Lipase 95 U/L (23-300); Potassium 3.6 mmol/L (3.4-5.1); Sodium 137 mmol/L (137-145); Total Protein 7.6 g/dL (6.3-8.2)
[2020-10-11 11:06] LABS: Troponin I 0.039 ng/mL (0.01-0.034)
[2020-10-11 12:55] LABS: Troponin I 0.066 ng/mL (0.01-0.034)
[2020-10-11] MEDS: LABETALOL 20 MG/4 ML SYRINGE 10 MG IV (12:58)
[2020-10-11 13:33] LABS: COVID19 -Nasal RAPID Negative (Negative)
--- NOTE | 2020-10-11 13:57 | PC.NURSE ---
Report given to CAROLYN Medellin at [facility]
--- NOTE | 2020-10-11 14:08 | PC.NURSE ---
Report given to CAROLYN Fragoso at [facility]
== END 2020-10-11 14:21 | disposition short-term general hospital (02) ==
PROVIDERS: Emergency Provider Emergency Medicine; PCP Internal Medicine
DX: I16.1 Hypertensive emergency (principal); R07.89 Other chest pain
CPT/HCPCS: 36415; 71275; 74174; 80053; 82550; 83690; 84484; 85025; 87635; 93005; 96361; 96374; 99285; Q9967

== ENCOUNTER → 2023-05-18 10:55 | Outpatient (CLI) | payer MEDICARE, OTHER, SELFPAY ==
[2023-03-28 14:07] VITALS: BMI 30.7
== END ==
PROVIDERS: PCP Internal Medicine; Visit Provider Specialist
DX: N95.2 Postmenopausal atrophic vaginitis (principal); R39.15 Urgency of urination; R39.9 Unspecified symptoms and signs involving the genitourinary system; N81.11 Cystocele, midline; N81.6 Rectocele; Z87.440 Personal history of urinary (tract) infections
CPT/HCPCS: 51798; 81002; 87086; 99215

== ENCOUNTER → 2023-10-26 13:43 | Outpatient (CLI) | payer MEDICARE, OTHER, SELFPAY ==
[2023-03-28 14:07] VITALS: BMI 30.7
== END ==
PROVIDERS: Visit Provider Specialist
DX: N95.2 Postmenopausal atrophic vaginitis (principal); N39.0 Urinary tract infection, site not specified; N81.11 Cystocele, midline; N81.6 Rectocele; R39.9 Unspecified symptoms and signs involving the genitourinary system
CPT/HCPCS: 51798; 81002; 87077; 87086; 87186; 99214